=== PATIENT | female | born 1975 | race Caucasian/White ===

== ENCOUNTER 2023-08-16 12:27 | Observation (INO) | payer MEDICARE, MEDICAID, SELFPAY ==
[2023-08-16] VITALS (9 sets, daily range): BP systolic 146–178; BP diastolic 88–100; PULSE 96–122; RESP 17–24; TEMP 36.4–36.7; O2SAT 91–93; BMI 42.5; BMI 41.2
--- NOTE | 2023-08-16 12:44 | XR_ITS ---
The [address] [address] Patient Name: CE ALEJANDRA MRN: [id number] date: 1975 Sex: F Assigned Patient Location: ER Current Patient Location: ER Accession/Order Number: [id number] Exam Date: 08/16/2023 12:48 Report Date: 08/16/2023 13:11 At the request of: KT TORRES Procedure: XR chest 1V EXAM: XR chest 1V HISTORY: SOB, history of asthma COMPARISON: 08/24/2021 TECHNIQUE: Single AP view of the chest. FINDINGS: The lungs are clear. No pleural effusion or pneumothorax. Increased density superimposed over the cardiac silhouette is consistent with the patient's known large hiatal hernia. The cardiac silhouette is therefore obscured. No acute osseous or soft tissue abnormality. XR/XR chest 1V IMPRESSION: 1. No acute cardiopulmonary process. 2. Chronic large hiatal hernia. Electronically authenticated by: COSTA BAPTISTE Date: 08/16/2023 13:11
--- NOTE | 2023-08-16 12:44 | ECG_ITS ---
The [facility] Test Date: 2023-08-16 Pat Name: CE ALEJANDRA Department: Room: - Gender: Female [employer]: : 1975 Requested By: [id number] Order Number: [id number] Reading MD: PHILLIP JIANG Measurements Intervals [place] Rate: 112 P: 70 CT: 138 QRS: 78 QRSD: 74 T: 52 QT: 316 QTc: 382 Interpretive Statements 1120 Sinus tachycardia 8102 Low QRS voltage in chest leads 9140 abnormal rhythm ECG No previous ECG available for comparison Electronically Signed On 08-17-2023 7:03:36 EDT by PHILLIP JIANG
--- NOTE | 2023-08-16 12:45 | ED_ITS ---
HPI - SOB/Dyspnea General Chief Complaint: Shortness of Breath/Dyspnea Stated Complaint: SHORTNESS OF BREATH Time Seen by Provider: 08/16/23 12:41 Source: patient Mode of arrival: walk-in Limitations: no limitations History of Present Illness HPI Narrative: 48-year-old female presents for difficulty breathing, she has a history of asthma. She's been feeling this way for several days after babysitting a sick child. No known fever. She used her inhaler at home but it didn't help that much. No vomiting or diarrhea. Related Data Home Medications Medication Instructions Recorded Confirmed albuterol sulfate 90 mcg/actuation 2 puff inhalation Q4H PRN 08/16/23 08/16/23 aerosol inhaler shortness of breath or wheezing ciprofloxacin HCl 500 mg tablet 500 mg PO Q12H 08/16/23 08/16/23 hydroxyzine HCl 25 mg tablet 25 mg PO DAILY PRN anxity 08/16/23 08/16/23 prednisone 20 mg tablet 20 mg PO TID 08/16/23 08/16/23 Allergies Allergy/AdvReac Type Severity Reaction Status Date / Time No Known Drug Allergies Allergy Verified 08/16/23 12:38 Review of Systems ROS Narrative A ten point review of systems is negative except as noted above. PFSH PFSH Social History Smoking status: Former smoker Exam Narrative Exam Narrative: Nurses note and vital signs reviewed and patient is not hypoxic. General: The patient appears well and in no apparent distress. Patient is resting comfortably on cart. Skin: Warm, dry, no pallor noted. There is no rash noted. Head: Normocephalic, atraumatic Eye: Normal conjunctiva, no drainage Ears, Nose, Mouth, and Throat: oral mucosa is moist. Nares patent. Cardiovascular: Regular Rate and Rhythm, tachycardic Respiratory: bilateral rhonchi throughout Back: non-tender GI: Normal bowel sounds, no tenderness to palpation, no masses appreciated. No rebound, guarding, or rigidity noted. Musculoskeletal: The patient has no evidence of calf tenderness, no pitting edema, symmetrical pulses noted bilaterally Neurological: A&O, normal speech Psychiatric: Cooperative Constitutional Vital Signs, click to edit/add: Last Vital Signs Pulse 96 H 08/16/23 13:58 Resp 17 08/16/23 13:58 BP 178/100 H 08/16/23 12:34 Pulse Ox 92 L 08/16/23 14:00 O2 Del Method Room Air 08/16/23 14:00 Course Vital Signs Vital signs: Vital Signs Pulse Rate 122 H 08/16/23 12:34 Respiratory Rate 24 08/16/23 12:34 Blood Pressure 178/100 H 08/16/23 12:34 Pulse Oximetry 93 L 08/16/23 12:34 Oxygen Delivery Method Room Air 08/16/23 12:34 Pulse Rate 96 H 08/16/23 13:58 Respiratory Rate 17 08/16/23 13:58 Blood Pressure 178/100 H 08/16/23 12:34 Pulse Oximetry 92 L 08/16/23 14:00 Oxygen Delivery Method Room Air 08/16/23 14:00 MDM - SOB/Dyspnea MDM Narrative Medical decision making narrative: the patient presents with asthma exacerbation. She was given IV Solu-Medrol and multiple aerosol treatments and is being admitted. No infiltrate on her chest x- ray. Treatment diagnosis and disposition were discussed with the patient. Differential Diagnosis Differential diagnosis: Likely acute exacerbation of chronic obstructive airways disease, congestive heart failure, community acquired pneumonia and asthma with exacerbation Lab Data Attestation: I reviewed the patient's lab results. Labs: Lab Results 08/16/23 08/16/23 Range/Units 12:50 13:15 Sodium 137 (136-145) mmol/L Potassium 4.4 (3.5-5.1) mmol/L Chloride 102 (98-107) mmol/L Carbon Dioxide 23.1 (21.0-32.0) mmol/L Anion Gap 16.3 BUN 21.0 H (7.0-18.0) mg/dL Creatinine 1.17 H (0.55-1.02) mg/dL Est GFR ( Amer) 59 L (>=60) Est GFR (Non-Af Amer) 49 L (>=60) BUN/Creatinine Ratio 17.9 Glucose 132 H (74-106) mg/dL Calcium 9.6 (8.5-10.1) mg/dL SARS-CoV-2 (PCR) Negative (NEGATIVE) Imaging Data Chest x-ray: Radiologist's impression: Procedure: XR chest 1V EXAM: XR chest 1V HISTORY: SOB, history of asthma COMPARISON: 08/24/2021 TECHNIQUE: Single AP view of the chest. FINDINGS: The lungs are clear. No pleural effusion or pneumothorax. Increased density superimposed over the cardiac silhouette is consistent with the patient's known large hiatal hernia. The cardiac silhouette is therefore obscured. No acute osseous or soft tissue abnormality. IMPRESSION: 1. No acute cardiopulmonary process. 2. Chronic large hiatal hernia. Electronically authenticated by: COSTA BAPTISTE Date: 08/16/2023 13:11 Critical Care Time Critical Care Time Critical Care Time: Yes Total Critical Care Time: 35 Attestation: Due to the high probability of sudden and clinically significant deterioration in the patient's condition he/she required the highest level of my preparedness to intervene urgently I provided critical care time including documentation time, medication orders and management, reevaluation, vital sign assessment, ordering and reviewing of lab tests, ordering and reviewing of x-ray studies, and admission orders. Aggregate critical care time is 35 minutes including only time during which I was engaged in work directly related to his/her care and did not include time spent treating other patients simultaneously. Discharge Plan Discharge Chief Complaint: Shortness of Breath/Dyspnea Clinical Impression: Asthma with acute exacerbation Patient Disposition: Admitted as Observation Time of Disposition Decision: 13:54 Condition: Good
[2023-08-16] MEDS: ALBUTEROL SULFATE 2.5 MG/3 ML VIAL NEB IH ×2 (12:57→13:58)
[2023-08-16] MEDS: METHYLPREDNISOLONE SOD SUCC PF 125 MG/2 ML VIAL IVP ×2 (13:01→21:04)
[2023-08-16 13:41] LABS: Anion Gap 16.3; BUN Creatinine Ratio 17.9; Calcium 9.6 mg/dL (8.5-10.1); Carbon Dioxide 23.1 mmol/L (21.0-32.0); Chloride 102 mmol/L (98-107); Estimated GFR (African America 59 (>=60); Estimated GFR (Non-African Ame 49 (>=60); Glucose 132 mg/dL (74-106); Potassium 4.4 mmol/L (3.5-5.1); Sodium 137 mmol/L (136-145)
[2023-08-16 13:55] LABS: SARS-CoV-2 Ag NEGATIVE (NEGATIVE)
[2023-08-16 14:28] LABS: Basophils Absolute Auto 0.1 10^3/uL (0.0-0.1); Basophils Percent Auto 0.6 % (0.2-2.0); Eosinophils Percent Auto 0.1 % (0.9-7.0); Hematocrit 49.1 % (36.0-48.0); Hemoglobin 16.4 g/dL (12.0-16.0); Immature Granulocytes Pct Auto 1.2 % (0.0-0.5); Lymphocytes Absolute Auto 1.2 10^3/uL (1.2-3.8); Lymphocytes Percent Auto 14.8 % (20.5-60.0); Mean Corpuscular HGB Conc 33.4 g/dL (29.9-35.2); Mean Corpuscular Volume 86.9 fL (81.0-99.0); Mean Platelet Volume 11.9 fL (9.5-13.5); Monocytes Absolute Auto 0.1 10^3/uL (0.3-0.8); Monocytes Percent Auto 1.4 % (1.7-12.0); Neutrophils Absolute Auto 6.7 10^3/uL (1.4-6.5); Neutrophils Percent Auto 81.9 % (43.0-75.0); Platelet Count 151 10^3/uL (150-450); Red Blood Count 5.65 10^6/uL (4.20-5.40); Red Cell Distribution Width 12.9 % (11.0-15.0); White Blood Count 8.1 10^3/uL (4.0-11.0)
[2023-08-16] MEDS: CEFTRIAXONE 1,000 MG in 0.9 % SODIUM CHLORIDE 50 ML 100 MG IV (14:34)
[2023-08-16 15:14] LABS: SARS-CoV-2 NAA NOT DETECTED (NOT DETECTE)
[2023-08-16] MEDS: AZITHROMYCIN 500 MG in 0.9 % SODIUM CHLORIDE 250 ML 250 MG IV (15:19)
[2023-08-16 18:04] LABS: Lactate/Lactic Acid 1.4 mmol/L (0.4-2.0)
--- NOTE | 2023-08-16 18:35 | P.HP_ITS ---
H&P: HPI History of Present Illness Chief complaint: SHORTNESS OF BREATH, copd exacerbation Narrative: Patient scented to the emergency room with increasing shortness of breath. Found to have acute exacerbation of asthma/COPD. She is currently treated for both. No fevers, unable to improve wheezing in ER, admitted overnight for observation Review of Systems ROS Status of ROS 10 or more systems reviewed and unremarkable except as noted in history and below [facility] Medical History (Updated 08/16/23 @ 15:15 by Ruchi Yoo) Fibromyalgia ?M79.7 - Fibromyalgia (ICD-10) Hiatal hernia ?K44.9 - Diaphragmatic hernia without obstruction or gangrene (ICD-10) Kidney stones ?N20.0 - Calculus of kidney (ICD-10) Right knee meniscal tear ?S83.206A - Unspecified tear of unspecified meniscus, current injury, right knee, initial encounter (ICD-10) Surgical History (Updated 08/16/23 @ 15:15 by Ruchi Yoo) History of cholecystectomy ?Z90.49 - Acquired absence of other specified parts of digestive tract (ICD- 10) Tubal ligation status ?Z98.51 - Tubal ligation status (ICD-10) Social History Smoking status: Former smoker Meds Home Medications and Allergies Home Medications Medication Instructions Recorded Confirmed Type albuterol sulfate 90 mcg/actuation 2 puff inhalation Q4H PRN 08/16/23 08/16/23 History aerosol inhaler shortness of breath or wheezing diclofenac sodium 75 mg 75 mg PO BID PRN pain 08/16/23 08/16/23 History tablet,delayed release ferrous sulfate 325 mg (65 mg 325 mg PO DAILY 08/16/23 08/16/23 History iron) tablet (Feosol) hydroxyzine HCl 25 mg tablet 25 mg PO DAILY PRN anxity 08/16/23 08/16/23 History pantoprazole 40 mg tablet,delayed 40 mg PO QDAY 08/16/23 08/16/23 History release prednisone 20 mg tablet 60 mg PO QDAY 08/16/23 08/16/23 History amoxicillin 875 mg-potassium 1 tab PO Q12H #20 tabs 08/17/23 Rx clavulanate 125 mg tablet Allergies Allergy/AdvReac Type Severity Reaction Status Date / Time No Known Drug Allergies Allergy Verified 08/16/23 15:16 Exam Narrative Exam Narrative: Nurses note and vital signs reviewed and patient is not hypoxic. General: The patient appears well and in no apparent distress. Patient is resting comfortably on cart. Skin: Warm, dry, no pallor noted. There is no rash noted. Head: Normocephalic, atraumatic Eye: Normal conjunctiva, no drainage Ears, Nose, Mouth, and Throat: oral mucosa is moist. Nares patent. Cardiovascular: Regular Rate and Rhythm, tachycardic Respiratory: bilateral rhonchi throughout-with wheezes throughout Back: non-tender GI: Normal bowel sounds, no tenderness to palpation, no masses appreciated. No rebound, guarding, or rigidity noted. Musculoskeletal: The patient has no evidence of calf tenderness, no pitting edema, symmetrical pulses noted bilaterally Neurological: A&O, normal speech Psychiatric: Cooperative Constitutional Vital Signs, click to edit/add: Last Vital Signs Temp 97.5 F L 08/16/23 15:22 Pulse 107 H 08/16/23 15:22 Resp 20 08/16/23 15:22 BP 157/97 H 08/16/23 15:22 Pulse Ox 91 L 08/16/23 15:22 O2 Del Method Room Air 08/16/23 15:30 Results Labs Labs: Short CBC 08/16/23 Range/Units 14:15 WBC 8.1 (4.0-11.0) 10^3/uL Hgb 16.4 H (12.0-16.0) g/dL Hct 49.1 H (36.0-48.0) % Plt Count 151 (150-450) 10^3/uL BMP 08/16/23 12:50 Sodium 137 Potassium 4.4 Chloride 102 Carbon Dioxide 23.1 BUN 21.0 H Creatinine 1.17 H Glucose 132 H Calcium 9.6 Assessment and Plan Assessment and Plan (1) Asthma with acute exacerbation: Plan Acute exacerbation of COPD and asthma-steroids, aerosols, antibiotics-if improved tomorrow possible discharge home tomorrow
[2023-08-16] MEDS: IPRATROPIUM BROMIDE 0.5 MG/2.5 ML VIAL.NEB IH ×2 (19:36→23:33)
[2023-08-16] MEDS: LEVALBUTEROL HCL 0.63 MG/3 ML VIAL.NEB IH ×2 (19:36→23:33)
[2023-08-16] MEDS: BENZONATATE 100 MG CAPSULE 200 MG PO (21:04)
[2023-08-16] MEDS: L. ACIDOPHILUS/L.BULGARICUS 1 PACKET GRAN.PACK PO (21:04)
[2023-08-16] MEDS: AMPICILLIN SODIUM/SULBACTAM NA 1.5 GM in 0.9 % SODIUM CHLORIDE 50 ML IV (21:07)
[2023-08-16] MEDS: LACTATED RINGER'S SOLUTION 1,000 ML 100 ML IV (21:07)
[2023-08-17] MEDS: AMPICILLIN SODIUM/SULBACTAM NA 1.5 GM in 0.9 % SODIUM CHLORIDE 50 ML IV ×2 (02:20→08:50)
[2023-08-17] MEDS: METHYLPREDNISOLONE SOD SUCC PF 125 MG/2 ML VIAL IVP ×2 (02:20→07:35)
[2023-08-17 03:07] VITALS: PULSE 70; RESP 20; O2SAT 92
[2023-08-17] MEDS: LEVALBUTEROL HCL 0.63 MG/3 ML VIAL.NEB IH ×3 (03:07→11:40)
[2023-08-17] MEDS: IPRATROPIUM BROMIDE 0.5 MG/2.5 ML VIAL.NEB IH ×2 (03:07→08:18)
[2023-08-17] MEDS: ACETAMINOPHEN 325 MG TABLET 650 MG PO ×2 (04:01→08:49)
[2023-08-17 04:02] VITALS: BP 128/78; PULSE 92; RESP 18; TEMP 36.5; O2SAT 90
[2023-08-17 04:24] LABS: Basophils Percent Auto 0.2 % (0.2-2.0); Hemoglobin 14.7 g/dL (12.0-16.0); Lymphocytes Absolute Auto 1.3 10^3/uL (1.2-3.8); Lymphocytes Percent Auto 12.7 % (20.5-60.0); Mean Corpuscular HGB Conc 34.2 g/dL (29.9-35.2); Mean Corpuscular Hemoglobin 29.5 pg (26.7-34.0); Mean Corpuscular Volume 86.3 fL (81.0-99.0); Mean Platelet Volume 12.5 fL (9.5-13.5); Monocytes Absolute Auto 0.2 10^3/uL (0.3-0.8); Neutrophils Absolute Auto 8.6 10^3/uL (1.4-6.5); Neutrophils Percent Auto 84.1 % (43.0-75.0); Platelet Count 101 10^3/uL (150-450); Red Blood Count 4.98 10^6/uL (4.20-5.40); Red Cell Distribution Width 12.9 % (11.0-15.0); White Blood Count 10.3 10^3/uL (4.0-11.0)
[2023-08-17 04:39] LABS: BUN Creatinine Ratio 23.1; Calcium 9.2 mg/dL (8.5-10.1); Carbon Dioxide 25.2 mmol/L (21.0-32.0); Chloride 102 mmol/L (98-107); Estimated GFR (African America >60 (>=60); Estimated GFR (Non-African Ame 54 (>=60); Glucose 152 mg/dL (74-106); Potassium 4.2 mmol/L (3.5-5.1); Sodium 136 mmol/L (136-145)
[2023-08-17] MEDS: BENZONATATE 100 MG CAPSULE 200 MG PO (05:51)
[2023-08-17] MEDS: OMEPRAZOLE 40 MG CAPSULE.DR PO (05:51)
[2023-08-17] MEDS: LACTATED RINGER'S SOLUTION 1,000 ML 100 ML IV (05:51)
--- NOTE | 2023-08-17 08:07 | PM.DS1 ---
DS: Providers Provider Date of admission: 08/16/23 14:55 Primary care physician: Non-Staff Physician, DS: Diagnosis Discharge Diagnosis (1) Asthma with acute exacerbation: Plan Patient mated with failed outpatient treatment of acute asthma-she is already been started on steroids prior to admission, in ER unable to improve wheezing so was placed in observation. Given frequent aerosols. Steroids, antibiotics. She is much improved this morning. No supplemental oxygen required overnight. At this point she can be discharged home in improving condition. Medications see list. Follow-up with me in the office as needed. DS: Summary Time Spent with Patient Time attestation: Total time spent providing and/or coordinating discharge services: Exam Narrative Exam Narrative: Nurses note and vital signs reviewed and patient is not hypoxic. General: The patient appears well and in no apparent distress. Patient is resting comfortably on cart. Skin: Warm, dry, no pallor noted. There is no rash noted. Head: Normocephalic, atraumatic Eye: Normal conjunctiva, no drainage Ears, Nose, Mouth, and Throat: oral mucosa is moist. Nares patent. Cardiovascular: Regular Rate and Rhythm, tachycardic Respiratory: bilateral rhonchi throughout-with wheezes throughout-being resolved Back: non-tender GI: Normal bowel sounds, no tenderness to palpation, no masses appreciated. No rebound, guarding, or rigidity noted. Musculoskeletal: The patient has no evidence of calf tenderness, no pitting edema, symmetrical pulses noted bilaterally Neurological: A&O, normal speech Psychiatric: Cooperative Constitutional Vital Signs, click to edit/add: Last Vital Signs Temp 97.7 F 08/17/23 04:02 Pulse 92 H 08/17/23 04:02 Resp 18 08/17/23 04:02 BP 128/78 08/17/23 04:02 Pulse Ox 90 L 08/17/23 04:02 O2 Del Method Room Air 08/17/23 04:02 DS: Data Data Completed and Pending Labs on day of discharge: Labs from last 24 hours 08/17/23 08/16/23 08/16/23 04:11 14:15 13:15 WBC 10.3 8.1 RBC 4.98 5.65 H Hgb 14.7 16.4 H Hct 43.0 49.1 H MCV 86.3 86.9 MCH 29.5 29.0 MCHC 34.2 33.4 RDW 12.9 12.9 Plt Count 101 L 151 MPV 12.5 11.9 Neut % (Auto) 84.1 H 81.9 H Lymph % (Auto) 12.7 L 14.8 L Hardin % (Auto) 2.0 1.4 L Eos % (Auto) 0.0 L 0.1 L Baso % (Auto) 0.2 0.6 Neut # (Auto) 8.6 H 6.7 H Lymph # (Auto) 1.3 1.2 Hardin # (Auto) 0.2 L 0.1 L Eos # (Auto) 0.0 0.0 Baso # (Auto) 0.0 0.1 Abs Immat Gran (auto) 0.10 H 0.10 H Imm/Tot Granulo (auto) 1.0 H 1.2 H Sodium 136 Potassium 4.2 Chloride 102 Carbon Dioxide 25.2 Anion Gap 13.0 BUN 25.0 H Creatinine 1.08 H Est GFR ( Amer) >60 Est GFR (Non-Af Amer) 54 L BUN/Creatinine Ratio 23.1 Glucose 152 H Lactate Calcium 9.2 SARS-CoV-2 (PCR) Negative SARS-CoV-2 RNA (SUKHWINDER) Not detected 08/16/23 12:50 WBC RBC Hgb Hct MCV MCH MCHC RDW Plt Count MPV Neut % (Auto) Lymph % (Auto) Hardin % (Auto) Eos % (Auto) Baso % (Auto) Neut # (Auto) Lymph # (Auto) Hardin # (Auto) Eos # (Auto) Baso # (Auto) Abs Immat Gran (auto) Imm/Tot Granulo (auto) Sodium 137 Potassium 4.4 Chloride 102 Carbon Dioxide 23.1 Anion Gap 16.3 BUN 21.0 H Creatinine 1.17 H Est GFR ( Amer) 59 L Est GFR (Non-Af Amer) 49 L BUN/Creatinine Ratio 17.9 Glucose 132 H Lactate 1.4 Calcium 9.6 SARS-CoV-2 (PCR) SARS-CoV-2 RNA (SUKHWINDER) Discharge Plan Discharge Disposition: Home, Self-Care Condition: Good Discharge Medications: New amoxicillin-pot clavulanate 875-125 mg tablet 1 tab PO Q12H Qty: 20 0RF Continued albuterol sulfate 90 mcg/actuation HFA aerosol inhaler 2 puff INHALATION Q4H PRN (Reason: shortness of breath or wheezing) hydroxyzine HCl 25 mg tablet 25 mg PO DAILY PRN (Reason: anxity) prednisone 20 mg tablet 60 mg PO QDAY Rx Instructions: STARTED ON 08/14/23 X5 DAYS diclofenac sodium 75 mg tablet,delayed release (DR/EC) 75 mg PO BID PRN (Reason: pain) Rx Instructions: LASTED FILLED 09/19 pantoprazole 40 mg tablet,delayed release (DR/EC) 40 mg PO QDAY Patient Comments: LAST FILLED 01/19/23 X90 DAYS ferrous sulfate [Feosol] 325 mg (65 mg iron) tablet 325 mg PO DAILY Discontinued ciprofloxacin HCl 500 mg tablet 500 mg PO Q12H Patient Comments: STARTED 08/14/23 FOR 10 DAYS Patient Instructions: Amoxicillin (By mouth), Asthma (ED) Forms: Portal Instructions Follow Up Appointments: Follow up appt. with Dr. Jones on @ 10:15am Office #: [phone] Discharge Date/Time: 08/17/23 12:12
[2023-08-17 08:20] VITALS: O2SAT 91
--- NOTE | 2023-08-17 08:37 | CM.NOTE ---
Medicare Outpatient Observation discussed with pt, pt verbalizes understanding and signs paper. Original given to pt and copy placed on chart.
[2023-08-17] MEDS: FERROUS SULFATE 325 MG TABLET PO (08:49)
[2023-08-17] MEDS: L. ACIDOPHILUS/L.BULGARICUS 1 PACKET GRAN.PACK PO (08:49)
[2023-08-17 11:42] VITALS: O2SAT 91
--- NOTE | 2023-08-20 15:04 | CM.DCFOLLOWU ---
Person spoke with: patient How are you feeling? better How is your pain? only when she has a coughing attack Did you understand your discharge instructions? yes Do you have any questions about your discharge instructions? no Were you given any prescriptions at discharge? yes Were you able to get your prescriptions filled? yes Do you understand how to take your medications as ordered? yes Do you have any questions about your follow up appointment and do you plan to keep your follow up appointment? no questions, follow up 08/27/[address] Jones Is there anything else that you would like to discuss? no Questions/Comments/Concerns/Other:
== END 2023-08-17 12:12 | disposition home or self-care (01) ==
LOC: ER 13:54 → MS 15:02
PROVIDERS: Admitting Provider Family Medicine; Emergency Provider Emergency Medicine; Visit Provider Family Medicine
DX: J45.901 Unspecified asthma with (acute) exacerbation (principal); M79.7 Fibromyalgia; K44.9 Diaphragmatic hernia without obstruction or gangrene; Z87.442 Personal history of urinary calculi; Z98.51 Tubal ligation status; Z90.49 Acquired absence of other specified parts of digestive tract; Z20.822 Contact with and (suspected) exposure to COVID-19; Z79.899 Other long term (current) drug therapy; Z87.891 Personal history of nicotine dependence
CPT/HCPCS: 36415; 71045; 80048; 83605; 85025; 87040; 87070; 87150; 87205; 87635; 87811; 93005; 94640; 94667; 94668; 94761; 96365; 96366; 96367; 96375; 96376; 99285; G0378; J0456; J2930

== ENCOUNTER 2023-08-27 11:10 | Outpatient (OUT) | payer MEDICARE, MEDICAID, SELFPAY ==
[2023-08-27 11:37] LABS: Basophils Absolute Auto 0.1 10^3/uL (0.0-0.1); Basophils Percent Auto 0.7 % (0.2-2.0); Eosinophils Absolute Auto 0.2 10^3/uL (0.0-0.7); Eosinophils Percent Auto 3.1 % (0.9-7.0); Hematocrit 41.8 % (36.0-48.0); Immature Granulocytes Abs Auto 0.08 10^3/uL (0.00-0.03); Immature Granulocytes Pct Auto 1.1 % (0.0-0.5); Lymphocytes Percent Auto 26.9 % (20.5-60.0); Mean Corpuscular HGB Conc 33.5 g/dL (29.9-35.2); Mean Corpuscular Hemoglobin 30.1 pg (26.7-34.0); Mean Corpuscular Volume 89.9 fL (81.0-99.0); Mean Platelet Volume 10.7 fL (9.5-13.5); Monocytes Absolute Auto 0.5 10^3/uL (0.3-0.8); Monocytes Percent Auto 6.4 % (1.7-12.0); Neutrophils Absolute Auto 4.5 10^3/uL (1.4-6.5); Neutrophils Percent Auto 61.8 % (43.0-75.0); Platelet Count 136 10^3/uL (150-450); Red Blood Count 4.65 10^6/uL (4.20-5.40); Red Cell Distribution Width 13.2 % (11.0-15.0); White Blood Count 7.3 10^3/uL (4.0-11.0)
[2023-08-27 12:55] LABS: Alanine Aminotransferase 233 U/L (14-59); Albumin Level 3.4 g/dL (3.4-5.0); Alkaline Phosphatase 67 U/L (46-116); Anion Gap 11.5; Aspartate Amino Transferase 41 U/L (15-37); BUN Creatinine Ratio 16.7; Bilirubin Total 0.8 mg/dL (0.2-1.0); Calcium 8.6 mg/dL (8.5-10.1); Carbon Dioxide 26.7 mmol/L (21.0-32.0); Chloride 104 mmol/L (98-107); Estimated GFR (African America >60 (>=60); Estimated GFR (Non-African Ame 54 (>=60); Globulin 3.5 g/dL; Glucose 93 mg/dL (74-106); Potassium 4.2 mmol/L (3.5-5.1); Sodium 138 mmol/L (136-145); Total Protein 6.9 g/dL (6.4-8.2)
== END 2023-08-27 11:11 | disposition home or self-care (01) ==
LOC: LAB 11:12
PROVIDERS: PCP Family Medicine; Visit Provider Family Medicine
DX: I11.0 Hypertensive heart disease with heart failure (principal); I50.30 Unspecified diastolic (congestive) heart failure; J21.9 Acute bronchiolitis, unspecified
CPT/HCPCS: 36415; 80053; 83880; 85025; 87070; 87205

== ENCOUNTER 2023-09-03 07:53 | Outpatient (OUT) | payer MEDICARE, MEDICAID, SELFPAY ==
--- NOTE | 2023-09-03 07:56 | US_ITS ---
The [address] [address] Patient Name: CE ALEJANDRA MRN: [id number] date: 1975 Sex: F Assigned Patient Location: US Current Patient Location: US Accession/Order Number: [id number] Exam Date: 09/03/2023 07:58 Report Date: 09/03/2023 09:08 At the request of: CABRERA VIGIL Procedure: US right upper quadrant EXAM: US right upper quadrant HISTORY: Right Upper Quadrant Pain R10.11 COMPARISON: None. TECHNIQUE: Grayscale, color and Doppler FINDINGS: The liver appears normal in size, contour and echotexture with no focal mass. The liver measures 18.5 cm in length. Hepatopedal flow in the main portal vein with a velocity of 19 cm/s. The gallbladder is absent. Negative sonographic Trevino sign. The common bile duct measures 7.9 mm. The visualized pancreatic body is normal The right kidney measures 10.2 x 6.5 x 5.6 cm. Multiple echogenic foci measuring up to 9 mm, nonobstructing nephrolithiasis. Cortical thinning, the cortex measures 8.6 mm thick. No solid cortical mass observed US/US right upper quadrant IMPRESSION: Nonobstructing nephrolithiasis with moderate renal cortical thinning Electronically authenticated by: LOREE VALE Date: 09/03/2023 09:08
== END 2023-09-03 07:54 | disposition home or self-care (01) ==
LOC: US 07:53
PROVIDERS: PCP Family Medicine; Visit Provider Family Medicine
DX: R10.11 Right upper quadrant pain (principal); N20.0 Calculus of kidney
CPT/HCPCS: 76705

== ENCOUNTER 2024-06-07 08:28 | Outpatient (OUT) | payer MEDICARE, MEDICAID, SELFPAY ==
--- OUTSIDE RECORDS SUMMARY | 2024-06-07 08:31 | XMS_ITS | CCD ---
Author Organization [facility] Care Team Providers Care Cell Changer Name Role Phone VALLE, M L Unavailable Unavailable VALLE, M L Unavailable Unavailable HOY, CABRERA M Unavailable Unavailable VALLE, M L Unavailable Unavailable VALLE, M L Unavailable Unavailable HOY, CABRERA M Unavailable Unavailable VALLE, M L Unavailable Unavailable HOY, CABRERA M Unavailable Unavailable HONoe, DR REES Primary Care Unavailable HOY, DR REES Admitting Unavailable HOY, DR REES Attending Unavailable HOY, DR REES Consulting Unavailable ZIEBER, DR MARCIAL Devine Consulting Unavailable REINECK, DR DONA Ashraf Admitting Unavailabl e HOY, DR REES Primary Care Unavailable KRYSTAL, DR DONA Ashraf Attending Unavailabl e LAURA, RUSSELL ESCOBAR Consulting Unavailable CONCHIS, NATY Consulting Unavailable NATHANY, DR REES Admitting Unavailable HOY, DR REES Attending Unavailable HOY, DR REES Consulting Unavailable HOY, DR REES Primary Care Unavailable HOY, DR REES Admitting Unavailable HOY, DR REES Attending Unavailable HOY, DR REES Consulting Unavailable MUSA, DR REES Primary Care Unavailable EAST BUTLER, DR LOREE Zimmerman Consulting Unavailable HOY, DR REES Primary Care Unavailable HOY, DR REES Admitting Unavailable HOY, DR REES Attending Unavailable HOY, DR REES Consulting Unavailable Problems Active Problems Problem Classification Problem Date Documented Date Episodic/Chronic Anxiety disorders (2 sources) Obsessive-compulsive disorder, unspecified; Translations: [Post-traumatic stress disorder, unspecified] Onset: 08-26-2021 Chronic Asthma (1 source) Asthma Onset: 05-16-2017 Disorders of lipid metabolism (4 sources) Hyperlipidemia, unspecified; Translations: [HYPERLIPIDEMIA UNSPECIFIED] Onset: 09-02-2021 Chronic Esophageal disorders (1 source) Gastro-esophageal reflux disease without esophagitis; Translations: [GERD WITHOUT ESOPHAGITIS] Onset: 08-26-2021 Chronic Esophageal disorders (1 source) Esophageal disorders Onset: 05-16-2017 Mood disorders (1 source) Major depressive disorder, single episode, unspecified; Translations: [JODEE DEPRESS D/O SINGLE EPIS UNS] Onset: 08-26-2021 Chronic Other nutritional; endocrine; and metabolic disorders (1 source) Morbid (severe) obesity due to excess calories; Translations: [MORBID SEVERE OBES D/T EXCESS SAMIA] Onset: 08-26-2021 Chronic Other nutritional; endocrine; and metabolic disorders (1 source) Body mass index (BMI) 45.0-49.9, adult; Translations: [BODY MASS INDEX BMI 45.0-49.9 ADULT] Onset: 08-26-2021 Chronic Residual codes; unclassified (1 source) Sleep apnea, unspecified; Translations: [SLEEP APNEA UNSPECIFIED] Onset: 08-26-2021 Chronic Unclassified (1 source) Periapical abscess without sinus / K04.7(ICD-9) Onset: 05-16-2017 Unclassified (2 sources) Dental caries, unspecified / K02.9(ICD-9) Onset: 05-16-2017 Unclassified (1 source) Bipolar disorder, unspecified / F31.9(ICD-9) Onset: 05-16-2017 Unclassified (1 source) Anxiety disorder, unspecified / F41.9(ICD-9) Onset: 05-16-2017 Unclassified (1 source) Post-traumatic stress disorder, unspecified / F43.10(ICD-9) Onset: 05-16-2017 Unclassified (1 source) Nicotine dependence, cigarettes, uncomplicated / F17.210(ICD-9) Onset: 05-16-2017 Unclassified (1 source) Personal history of urinary calculi / Z87.442(ICD-9) Onset: 05-16-2017 Unclassified (1 source) Other specified disorders of teeth and supporting structures / K08.89(ICD-9) Onset: 05-16-2017 Unclassified (1 source) Personal history of peptic ulcer disease / Z87.11(ICD-9) Onset: 05-16-2017 Unclassified (1 source) Acquired absence of other specified parts of digestive tract / Z90.49(ICD-9) Onset: 05-16-2017 Unclassified (1 source) Obesity, unspecified / E66.9(ICD-9) Onset: 05-16-2017 Unclassified (1 source) Body mass index (BMI) 45.0-49.9, adult / Z68.42(ICD-9) Onset: 05-16-2017 Unclassified (2 sources) Encounter for other preprocedural examination / Z01.818(ICD-9) Onset: 05-10-2017 Unclassified (1 source) Dental caries on pit and fissure surface limited to enamel / K02.51(ICD-9) Onset: 05-10-2017 Unclassified (4 sources) CONTACT W/AND (SUSP) EXPOS COVID-19; Translations: [CONTACT W/AND (SUSP) EXPOS COVID-19] Onset: 08-26-2021 Past or Other Problems Problem Classification Problem Date Documented Date Episodic/Chronic Calculus of urinary tract (1 source) Personal history of urinary calculi; Translations: [PERSONAL HISTORY OF URINARY CALCULI] Onset: 08-26-2021 Episodic Deficiency and other anemia (1 source) Anemia, unspecified; Translations: [ANEMIA UNSPECIFIED] Onset: 09-08-2021 Episodic Diabetes mellitus without complication (1 source) Other abnormal glucose; Translations: [OTHER ABNORMAL GLUCOSE] Onset: 09-08-2021 Episodic Disorders of teeth and jaw (1 source) Dental caries, unspecified; Translations: [Dental caries, unspecified] Onset: 05-16-2017 Episodic Genitourinary symptoms and ill-defined conditions (1 source) Personal history of urinary (tract) infections; Translations: [PERS HX URINARY TRACT INFECTIONS] Onset: 08-26-2021 Episodic Other aftercare (1 source) Other lathe puller (current) drug therapy; Translations: [OTH RESIDENTIAL CURRENT DRUG THERAPY] Onset: 08-26-2021 Episodic Other lower respiratory disease (4 sources) Shortness of breath; Translations: [SHORTNESS OF BREATH] Onset: 08-24-2021 Episodic Other screening for suspected conditions (not mental disorders or infectious disease) (5 sources) Encounter for screening mammogram for malignant neoplasm of breast; Translations: [Encounter for screening for malignant neoplasm of rectum] Onset: 09-08-2021 Episodic Residual codes; unclassified (1 source) Family history of other malignant neoplasms of lymphoid, hematopoietic and related tissues; Translations: [FAM HX OTH MAL FABIOLA LYMPH HEMATPOETC] Onset: 09-24-2021 Episodic Residual codes; unclassified (1 source) Acquired absence of other specified parts of digestive tract; Translations: [ACQ ABSENCE OTH PART DIGESTV TRACT] Onset: 08-26-2021 Episodic Screening and history of mental health and substance abuse codes (1 source) Personal history of nicotine dependence; Translations: [PERSONAL HISTORY OF NICOTINE DEPEND] Onset: 08-26-2021 Episodic Unclassified (1 source) Encounter for other preprocedural examination; Translations: [Encounter for other preprocedural examination] Onset: 05-10-2017 Unclassified (1 source) CONTACT W/AND (SUSP) EXPOS COVID-19; Translations: [CONTACT W/AND (SUSP) EXPOS COVID-19] Onset: 05-12-2022 Results Test Name Value Interpretation Reference Range Facility Covid-19 PCR (CVDTB)on 04-28 SARS-CoV-2 (COVID-19) RNA SUKHWINDER+probe Ql (Unsp spec) Not detected Normal NOT DETECTED [facility] Comment on above: Result Comment: This test is not yet approved or cleared by the [place] FDA. When there are no FDA-approved or cleared tests available, and other criteria are met, FDA can make tests available under an emergency access mechanism called an Emergency Use Authorization (EUA). The EUA for this test is supported by the [place] of Health and Human Service's (HHS's) declaration that circumstances exist to justify the emergency use of in vitro diagnostics for the detection and/or diagnosis of the virus that causes COVID-19. This EUA will remain in effect (meaning this test can be used) for the duration of the COVID-19 declaration justifying emergency of IVDs, unless it is terminated or revoked by FDA (after which the test may no longer be used). When diagnostic testing is negative, the possibility of a false negative should be considered in the context of a patient's recent exposures and the presence of clinical signs and symptoms consistent with SARS-CoV-2. Performed By: #### C MP, BNP, TSH, HSTROPN #### [facility] [address] [place] [address] Dr. Emily Hercules Facesheeton 03-02-2022 Facesheet [id number]:127 Normal [facility] Physician Referralon 022 Physician Referral [id number]. [id number]:127 Normal [facility] Covid-19 PCR (CVDTB)on 08-30 SARS-CoV-2 (COVID-19) RNA SUKHWINDER+probe Ql (Unsp spec) Not detected Normal NOT DETECTED [facility] Comment on above: Result Comment: This test is not yet approved or cleared by the [place] FDA. When there are no FDA-approved or cleared tests available, and other criteria are met, FDA can make tests available under an emergency access mechanism called an Emergency Use Authorization (EUA). The EUA for this test is supported by the [employer] of Health and Human Service's (HHS's) declaration that circumstances exist to justify the emergency use of in vitro diagnostics for the detection and/or diagnosis of the virus that causes COVID-19. This EUA will remain in effect (meaning this test can be used) for the duration of the COVID-19 declaration justifying emergency of IVDs, unless it is terminated or revoked by FDA (after which the test may no longer be used). When diagnostic testing is negative, the possibility of a false negative should be considered in the context of a patient's recent exposures and the presence of clinical signs and symptoms consistent with SARS-CoV-2. Performed By: #### [facility] #### [facility] [address] [address] [address] Emily Hercules MG MAMM SCREEN 3D SHELLY CADon 09-15-2021 MG MAMM SCREEN 3D SHELLY CAD Patient: KIYA BHAT Exam Date: 09/15/2021 : 1975 Gender:F Ordering : DR CABRERA JONES . Admission #: [id number] Family : Order #: [id number] CLICK HERE TO VIEW EXAM RADIOLOGY REPORT PROCEDURE: MAMMOGRAM SCREENING 3D BILATERAL CAD COMPARISON: None. INDICATIONS: Screening mammography Calculator Name NCI Breast Cancer Risk Assessment Tool 5 Year Breast Cancer Risk 0.70% Lifetime Breast Cancer Risk 6.70% Personal Breast Cancer No Personal Ovarian Cancer No Treatments None Family Cancers Grandmother-maternal with leukemia cancer at age 38. LOCATION: [facility] BREAST COMPOSITION: Scattered areas fibroglandular density. FINDINGS: DIAGNOSTIC CATEGORY 2--BENIGN FINDING: Bilateral reniform shaped nodules likely intramammary lymph nodes. Scattered benign-appearing calcifications are present. Scattered benign-appearing lymph nodes are present. RIGHT BREAST: No significant suspicious finding. LEFT BREAST: No significant suspicious finding. RECOMMENDATIONS: ROUTINE MAMMOGRAM AND CLINICAL EVALUATION IN 12 MONTHS. PLEASE NOTE: A NORMAL MAMMOGRAM DOES NOT EXCLUDE THE POSSIBILITY OF BREAST CANCER. A CLINICALLY SUSPICIOUS PALPABLE LUMP SHOULD BE BIOPSIED. Dictated by: Loree Serna MD on 09/15/2021 at 11:35 Approved by: Loree Serna MD on 09/15/2021 at 11:59 Normal [facility] FSHon 09-03-2021 FSH 8.8 mIU/mL Normal [facility] Comment on above: Result Comment: Adul t Female: Follicular phase 3.5 - 12.5 Ovulation phase 4.7 - 21.5 Luteal phase 1.7 - 7.7 Postmenopausal 25.8 - 134.8 Performed By: #### L BCFSH #### [facility] [address] [place] [address] Dr. Emily Hercules INSULINon 09-03-2021 Insulin 19.4 uIU/mL Normal 2.6-24.9 [facility] Comment on above: Performed By: #### C MP, BNP, TSH, HSTROPN #### [facility] [address] [place] [address] Dr. Emily Hercules CBC AUTO DIFFon 09-02-2021 BASO # 0.1 103/ul Normal 0.0-0.1 [facility] Comment on above: Performed By: #### C BC #### [facility] [address] [place] [address] Dr. Emily Hercules Basophils/100 WBC (Bld) 0.7 % Normal 0.2-2.0 [facility] Comment on above: Performed By: #### C BC #### [facility] [address] [place] [address] Dr. Emily Hercules EO # 0.3 103/ul Normal 0.0-0.7 [facility] Comment on above: Performed By: #### C BC #### [facility] [address] [place] [address] Dr. Emily Hercules Eosinophils/100 WBC (Bld) 3.8 % Normal 0.9-7.0 [facility] Comment on above: Performed By: #### C BC #### [facility] [address] [place] [address] Dr. Emily Hercules Erythrocyte distribution width (RBC) [Ratio] 13.6 % Normal 11.0-15.0 [facility] Comment on above: Performed By: #### C BC #### [facility] [address] [place] [address] Dr. Emily Hercules Hematocrit (Bld) [Volume fraction] 42.6 % Normal 36.0-48.0 [facility] Comment on above: Performed By: #### C BC #### [facility] [address] [place] [address] Dr. Emily Hercules Hemoglobin (Bld) [Mass/Vol] 14.5 g/dL Normal 12.0-16.0 [facility] Comment on above: Performed By: #### C BC #### [facility] [address] [place] [address] Dr. Emily Hercules IG # 0.08 10e3/ul Critically high 0.00-0.03 [facility] Comment on above: Performed By: #### C BC #### [facility] [address] [place] [address] Dr. Emily Hercules IG % 1.0 % Critically high 0.0-0.5 [facility] Comment on above: Performed By: #### C BC #### [facility] [address] [place] [address] Dr. Emily Hercules LYMPH # 2.2 103/ul Normal 1.2-3.8 [facility] Comment on above: Performed By: #### C BC #### [facility] [address] [place] [address] Dr. Emily Hercules Lymphocytes/100 WBC (Bld) 27.4 % Normal 20.5-60.0 [facility] Comment on above: Performed By: #### C BC #### [facility] [address] [place] [address] Dr. Emily Hercules MANUAL DIFF REQ NO Normal [facility] Comment on above: Performed By: #### C BC #### [facility] [address] [place] [address] Dr. Emily Hercules MCH (RBC) [Entitic mass] 30.2 pg Normal 26.7-34.0 [facility] Comment on above: Performed By: #### C BC #### [facility] [address] [place] [address] Dr. Emily Hercules MCHC (RBC) [Mass/Vol] 34.0 g/dL Normal 29.9-35.2 [facility] Comment on above: Performed By: #### C BC #### [facility] [address] [place] [address] Dr. Emily Hercules MCV (RBC) [Entitic vol] 88.8 fL Normal 81.0-99.0 [facility] Comment on above: Performed By: #### C BC #### [facility] [address] [place] [address] Dr. Emily Hercules MONO # 0.5 103/ul Normal 0.3-0.8 [facility] Comment on above: Performed By: #### C BC #### [facility] [address] [place] [address] Dr. Emily Hercules Monocytes/100 WBC (Bld) 6.2 % Normal 1.7-12.0 [facility] Comment on above: Performed By: #### C BC #### [facility] [address] [place] [address] Dr. Emily Hercules NEUT # 4.9 103/ul Normal 1.4-6.5 [facility] Comment on above: Performed By: #### C BC #### [facility] [address] [place] [address] Dr. Emily Hercules Neutrophils/100 WBC (Bld) 60.9 % Normal 43.0-75.0 [facility] Comment on above: Performed By: #### C BC #### [facility] [address] [address] [address] Eimly Hercules Platelet mean volume (Bld) [Entitic vol] 11.6 fL Normal 9.5-13.5 [facility] Comment on above: Performed By: #### C BC #### [facility] [address] [place] [address] Dr. Emily Hercules PLT 180 103/ul Normal 150-450 [facility] Comment on above: Performed By: #### C BC #### [facility] [address] [address] [address] Emily Hercules RBC 4.80 106/ul Normal 4.20-5.40 [facility] Comment on above: Performed By: #### C BC #### [facility] [address] [place] [address] Dr. Emily Hercules WBC 8.1 103/ul Normal 4.0-11.0 [facility] Comment on above: Performed By: #### C BC #### [facility] [address] [place] [address] Dr. Emily Hercules FREE THYROXINE INDEX T7on FTI 3.47 Normal [facility] Comment on above: Performed By: #### T 7, CMP, LIPID, TSH #### [facility] [address] [place] [address] Dr. Emily Hercules T3U 35.0 % Normal 23.5-40.5 [facility] Comment on above: Performed By: #### T 7, CMP, LIPID, TSH #### [facility] [address] [place] [address] Dr. Emily Hercules T4 [Mass/Vol] 9.90 ug/dL Normal 5.53-11.00 [facility] Comment on above: Performed By: #### T 7, CMP, LIPID, TSH #### [facility] [address] [place] [address] Dr. Emily Hercules GLYCOHEMOGLOBIN A1Con 2020 ADA RECOMMENDATION ADA THERAPEUTIC TARGET 6.0 - 7.0 ACTION SUGGESTED > 7.0 Normal [facility] Comment on above: Performed By: #### C MP, BNP, TSH, HSTROPN #### [facility] [address] [address] [address] Emily Hercules Glucose [Mass/Vol] 114 mg/dL Normal [facility] Comment on above: Performed By: #### C MP, BNP, TSH, HSTROPN #### [facility] [address] [address] [address] Emily Hercules HbA1c (Bld) [Mass fraction] 5.6 % Normal <=6.0 [facility] Comment on above: Performed By: #### C MP, BNP, TSH, HSTROPN #### [facility] [address] [address] [address] Emily Hercules IRONon 09-02-2021 Iron [Mass/Vol] 111.0 ug/dL Normal 37.0-170.0 [facility] Comment on above: Performed By: #### C MP, BNP, TSH, HSTROPN #### [facility] [address] [address] [address] Emily Hercules LIPID PROFILEon 09-02-2021 CHOL-HDL RATIO NORM SEE BELOW Normal [facility] Comment on above: Result Comment: 3.3 - 4.4 LOW RISK 4.4 - 7.1 AVERAGE RISK 7.1 - 11.0 MODERATE RISK >11.0 HIGH RISK Performed By: #### C MP, BNP, TSH, HSTROPN #### [facility] [address] [address] [address] Emily Hercules Cholesterol [Mass/Vol] 183 mg/dL Normal <=200 [facility] Comment on above: Performed By: #### C MP, BNP, TSH, HSTROPN #### [facility] [address] [address] [address] Emily Hercules Cholesterol in HDL [Mass/Vol] 43 mg/dL Normal [facility] Comment on above: Performed By: #### C MP, BNP, TSH, HSTROPN #### [facility] [address] [address] [address] Emily Hercules Cholesterol in LDL [Mass/Vol] 109.0 mg/dL Normal [facility] Comment on above: Performed By: #### C MP, BNP, TSH, HSTROPN #### [facility] [address] [address] [address] Emily Hercules Cholesterol.total/Ch olesterol in HDL [Mass ratio] 4.3 {ratio} Normal [facility] Comment on above: Performed By: #### C MP, BNP, TSH, HSTROPN #### [facility] [address] [address] [address] Emily Hercules HDL NORMAL > or = 60 mg/dl - LO W CARDIOVASCULAR RISK <40 mg/dl - HIGH CARDIOVASCULAR RISK Normal [facility] Comment on above: Performed By: #### C MP, BNP, TSH, HSTROPN #### [facility] [address] [place] [address] Dr. Emily Hercules LDL CALC NORMAL SEE BELOW Normal [facility] Comment on above: Result Comment: <100 mg/dl OPTIMAL 100 - 129 mg/dl NEAR OR ABOVE OPTIMAL 130 - 159 mg/dl BORDERLINE HIGH 160 - 189 mg/dl HIGH >190 mg/dl VERY HIGH Performed By: #### C MP, BNP, TSH, HSTROPN #### [facility] [address] [place] [address] Dr. Emily Hercules Triglyceride [Mass/Vol] 155 mg/dL Critically high <=150 [facility] Comment on above: Performed By: #### C MP, BNP, TSH, HSTROPN #### [facility] [address] [place] [address] Dr. Emily Hercules VLDL CALC 31.0 mg/dL Normal [facility] Comment on above: Performed By: #### C MP, BNP, TSH, HSTROPN #### [facility] [address] [address] [address] Emily Hercules PROF 14(COMP METB)on 021 Albumin [Mass/Vol] 3.8 g/dL Normal 3.5-5.0 [facility] Comment on above: Performed By: #### T 7, CMP, LIPID, TSH #### [facility] [address] [place], [place] [id number] Dr. Emily Hercules Albumin/Globulin [Mass ratio] 1.1 {ratio} Normal [facility] Comment on above: Performed By: #### T 7, CMP, LIPID, TSH #### [facility] [address] [place] [address] Dr. Emily Hercules ALP [Catalytic activity/Vol] 57 U/L Normal 38-126 [facility] Comment on above: Performed By: #### T 7, CMP, LIPID, TSH #### [facility] [address] [place] [address] Dr. Emily Hercules ALT [Catalytic activity/Vol] 57 U/L Critically high 9-52 [facility] Comment on above: Performed By: #### T 7, CMP, LIPID, TSH #### [facility] [address] [place] [address] Dr. Emily Hercules Anion gap [Moles/Vol] 11.7 mmol/L Normal [facility] Comment on above: Performed By: #### T 7, CMP, LIPID, TSH #### [facility] [address] [place] [address] Dr. Emily Hercules AST [Catalytic activity/Vol] 35 U/L Normal 14-36 [facility] Comment on above: Performed By: #### T 7, CMP, LIPID, TSH #### [facility] [address] [place] [address] Dr. Emily Hercules Bilirubin [Mass/Vol] 0.7 mg/dL Normal 0.2-1.3 [facility] Comment on above: Performed By: #### T 7, CMP, LIPID, TSH #### [facility] [address] [place] [address] Dr. Emily Hercules Calcium [Mass/Vol] 8.8 mg/dL Normal 8.4-10.2 [facility] Comment on above: Performed By: #### T 7, CMP, LIPID, TSH #### [facility] [address] [place] [address] Dr. Emily Hercules Chloride [Moles/Vol] 105 mmol/L Normal 98-107 [facility] Comment on above: Performed By: #### T 7, CMP, LIPID, TSH #### [facility] [address] [address] [address] Emily Hercules CO2 [Moles/Vol] 26.1 mmol/L Normal 22.0-30.0 [facility] Comment on above: Performed By: #### T 7, CMP, LIPID, TSH #### [facility] [address] [address] [address] Emily Hercules Creatinine [Mass/Vol] 1.34 mg/dL Critically high 0.52-1.04 [facility] Comment on above: Performed By: #### T 7, CMP, LIPID, TSH #### [facility] [address] [place] [address] Dr. Emily Hercules EGFR-AF [facility] 51 mL/min/1.73m2 Critically low >=60 [facility] Comment on above: Performed By: #### T 7, CMP, LIPID, TSH #### [facility] [address] [place] [address] Dr. Emily Hercules EGFR-NON AF [facility] 42 mL/min/1.73m2 Critically low >=60 [facility] Comment on above: Performed By: #### T 7, CMP, LIPID, TSH #### [facility] [address] [place] [address] Dr. Emily Hercules Globulin (S) [Mass/Vol] 3.4 g/dL Normal [facility] Comment on above: Performed By: #### T 7, CMP, LIPID, TSH #### [facility] [address] [place] [address] Dr. Emily Hercules Glucose [Mass/Vol] 92 mg/dL Normal 74-106 [facility] Comment on above: Performed By: #### T 7, CMP, LIPID, TSH #### [facility] [address] [place] [address] Dr. Emily Hercules Potassium [Moles/Vol] 3.8 mmol/L Normal 3.4-5.0 [facility] Comment on above: Performed By: #### T 7, CMP, LIPID, TSH #### [facility] [address] [place] [address] Dr. Emily Hercules Protein [Mass/Vol] 7.2 g/dL Normal 6.1-8.2 [facility] Comment on above: Performed By: #### T 7, CMP, LIPID, TSH #### [facility] [address] [place] [address] Dr. Emily Hercules Sodium [Moles/Vol] 139 mmol/L Normal 137-145 The [facility] Comment on above: Performed By: #### T 7, CMP, LIPID, TSH #### [facility] [address] [place] [address] Dr. Emily Hercules Urea nitrogen [Mass/Vol] 21.0 mg/dL Critically high 7.0-17.0 [facility] Comment on above: Performed By: #### T 7, CMP, LIPID, TSH #### [facility] [address] [place] [address] Dr. Emily Hercules Urea nitrogen/Creatinine [Mass ratio] 15.7 mg/mg Normal [facility] Comment on above: Performed By: #### T 7, CMP, LIPID, TSH #### [facility] [address] [place] [address] Dr. Emily Hercules TSHon 09-02-2021 TSH 1.130 uIU/mL Normal 0.470-4.680 [facility] Comment on above: Performed By: #### T 7, CMP, LIPID, TSH #### [facility] [address] [place] [address] Dr. Emily Hercules TSH RANGE SEE BELOW Normal [facility] Comment on above: Result Comment: <0.3 4 UIU/ml HYPERTHYROID 0.34-5.60 UIU/ml EUTHYROID >5.60 UIU/ml HYPOTHYROID Performed By: #### T 7, CMP, LIPID, TSH #### [facility] [address] [place] [address] Dr. Emily Hercules BNPon 08-24-2021 Natriuretic peptide B (Bld) [Mass/Vol] 98.0 pg/mL Normal <=450.0 [facility] Comment on above: Performed By: #### C MP, BNP, TSH, HSTROPN #### [facility] [address] [place] [address] Dr. Emily Hercules CBC AUTO DIFFon 08-24-2021 BASO # 0.0 103/ul Normal 0.0-0.1 [facility] Comment on above: Performed By: #### C MP, BNP, TSH, HSTROPN #### [facility] [address] [place] [address] Dr. Emily Hercules Basophils/100 WBC (Bld) 0.6 % Normal 0.2-2.0 [facility] Comment on above: Performed By: #### C MP, BNP, TSH, HSTROPN #### [facility] [address] [place] [address] Dr. Emily Hercules EO # 0.3 103/ul Normal 0.0-0.7 [facility] Comment on above: Performed By: #### C MP, BNP, TSH, HSTROPN #### [facility] [address] [place] [address] Dr. Emily Hercules Eosinophils/100 WBC (Bld) 4.1 % Normal 0.9-7.0 [facility] Comment on above: Performed By: #### C MP, BNP, TSH, HSTROPN #### [facility] [address] [place] [address] Dr. Emily Hercules Erythrocyte distribution width (RBC) [Ratio] 13.6 % Normal 11.0-15.0 [facility] Comment on above: Performed By: #### C MP, BNP, TSH, HSTROPN #### [facility] [address] [place] [address] Dr. Emily Hercules Hematocrit (Bld) [Volume fraction] 39.4 % Normal 36.0-48.0 [facility] Comment on above: Performed By: #### C MP, BNP, TSH, HSTROPN #### [facility] [address] [place] [address] Dr. Emily Hercules Hemoglobin (Bld) [Mass/Vol] 13.4 g/dL Normal 12.0-16.0 [facility] Comment on above: Performed By: #### C MP, BNP, TSH, HSTROPN #### [facility] [address] [place] [address] Dr. Emily Hercules IG # 0.02 10e3/ul Normal 0.00-0.03 [facility] Comment on above: Performed By: #### C MP, BNP, TSH, HSTROPN #### [facility] [address] [place] [address] Dr. Emily Hercules IG % 0.3 % Normal 0.0-0.5 [facility] Comment on above: Performed By: #### C MP, BNP, TSH, HSTROPN #### [facility] [address] [place] [address] Dr. Emily Hercules LYMPH # 1.8 103/ul Normal 1.2-3.8 [facility] Comment on above: Performed By: #### C MP, BNP, TSH, HSTROPN #### [facility] [address] [place] [address] Dr. Emily Hercules Lymphocytes/100 WBC (Bld) 25.9 % Normal 20.5-60.0 [facility] Comment on above: Performed By: #### C MP, BNP, TSH, HSTROPN #### [facility] [address] [place] [address] Dr. Emily Hercules MANUAL DIFF REQ NO Normal [facility] Comment on above: Performed By: #### C MP, BNP, TSH, HSTROPN #### [facility] [address] [place] [address] Dr. Emily Hercules MCH (RBC) [Entitic mass] 29.9 pg Normal 26.7-34.0 [facility] Comment on above: Performed By: #### C MP, BNP, TSH, HSTROPN #### [facility] [address] [place] [address] Dr. Emily Hercules MCHC (RBC) [Mass/Vol] 34.0 g/dL Normal 29.9-35.2 [facility] Comment on above: Performed By: #### C MP, BNP, TSH, HSTROPN #### [facility] [address] [place] [address] Dr. Emily Hercules MCV (RBC) [Entitic vol] 87.9 fL Normal 81.0-99.0 [facility] Comment on above: Performed By: #### C MP, BNP, TSH, HSTROPN #### [facility] [address] [place] [address] Dr. Emily Hercules MONO # 0.4 103/ul Normal 0.3-0.8 [facility] Comment on above: Performed By: #### C MP, BNP, TSH, HSTROPN #### [facility] [address] [place] [address] Dr. Emily Hercules Monocytes/100 WBC (Bld) 5.8 % Normal 1.7-12.0 [facility] Comment on above: Performed By: #### C MP, BNP, TSH, HSTROPN #### [facility] [address] [place] [address] Dr. Emily Hercules NEUT # 4.4 103/ul Normal 1.4-6.5 [facility] Comment on above: Performed By: #### C MP, BNP, TSH, HSTROPN #### [facility] [address] [place] [address] Dr. Emily Hercules Neutrophils/100 WBC (Bld) 63.3 % Normal 43.0-75.0 [facility] Comment on above: Performed By: #### C MP, BNP, TSH, HSTROPN #### [facility] [address] [place] [address] Dr. Emily Hercules Platelet mean volume (Bld) [Entitic vol] 11.7 fL Normal 9.5-13.5 [facility] Comment on above: Performed By: #### C MP, BNP, TSH, HSTROPN #### [facility] [address] [place] [address] Dr. Emily Hercules PLT 122 103/ul Critically low 150-450 [facility] Comment on above: Performed By: #### C MP, BNP, TSH, HSTROPN #### [facility] [address] [place], [place] [address] Dr. Emily Hercules RBC 4.48 106/ul Normal 4.20-5.40 [facility] Comment on above: Performed By: #### C MP, BNP, TSH, HSTROPN #### [facility] [address] [place], [place] [address] Dr. Emily Hercules WBC 6.9 103/ul Normal 4.0-11.0 [facility] Comment on above: Performed By: #### C MP, BNP, TSH, HSTROPN #### [facility] [address] [place], [place] [address] Dr. Emily Hercules CTA CHEST WO W CONon 10-27-2 021 CTA CHEST WO W CON EXAM: CTA CHEST WO W CON COMPARISON: 01/27/2016. CLINICAL INDICATION: Pulmonary embolism TECHNIQUE: CT angiography of the pulmonary arteries following the administration of 100 mL Omnipaque 300 intravenous contrast. MIP (maximum intensity projection) images or 3D post processing was performed. Dose reduction techniques were achieved by using automated exposure control and/or adjustment of mA and/or kV according to patient size and/or use of iterative reconstruction technique. FINDINGS: LOWER NECK AND CHEST WALL: Unremarkable. MEDIASTINUM AND NORMA: No mediastinal or hilar pathologic lymphadenopathy by CT size criteria. Large hiatal hernia containing the entire stomach. This is unchanged compared to prior from 2016. CARDIOVASCULAR: No evidence of pulmonary embolism. No pathologic dilatation of the main pulmonary arteries. No pericardial effusion. No thoracic aortic aneurysm or dissection. LUNGS: No focal consolidation. No evidence of pulmonary edema. Mild atelectasis/scarring associated with large hiatal hernia. There is also mild lingular atelectasis/scarring. A few subcentimeter pulmonary nodules which appear to be along the fissure on the left on series 5 images 39 and 40, unchanged since 2016. No suspicious pulmonary nodules identified. AIRWAYS: The central airways are patent. Diffuse peribronchial thickening. PLEURA: No pleural effusion or pneumothorax is seen. UPPER ABDOMEN: Images through the upper abdomen reveal no acute abnormality. BONES: No suspicious or aggressive bone lesions are seen. No acute fractures are seen. IMPRESSION: No evidence of pulmonary embolism or acute cardiopulmonary abnormality. Large hiatal hernia containing the entire stomach is unchanged since 2016. There is associated minimal adjacent atelectasis/scarring and minimal lingular atelectasis/scarring. The herniated stomach appears thickened, although CT is not the preferred modality for evaluation and could relate to lack of distention. Consider gastroenterology referral/evaluation and consider outpatient endoscopy. Diffuse peribronchial thickening, small airways disease versus bronchitis. No evidence of volume overload. Electronically authenticated by: NATY BALDERRAMA Date: 2021-08-24 17:14 Normal [facility] Covid-19 PCR (CVDTBH)on 07-30 SARS-CoV-2 (COVID-19) RNA SUKHWINDER+probe Ql (Unsp spec) Not detected Normal NOT DETECTED [facility] Comment on above: Result Comment: This test is not yet approved or cleared by the [place] FDA. When there are no FDA-approved or cleared tests available, and other criteria are met, FDA can make tests available under an emergency access mechanism called an Emergency Use Authorization (EUA). The EUA for this test is supported by the [place] of Health and Human Service's (HHS's) declaration that circumstances exist to justify the emergency use of in vitro diagnostics for the detection and/or diagnosis of the virus that causes COVID-19. This EUA will remain in effect (meaning this test can be used) for the duration of the COVID-19 declaration justifying emergency of IVDs, unless it is terminated or revoked by FDA (after which the test may no longer be used). When diagnostic testing is negative, the possibility of a false negative should be considered in the context of a patient's recent exposures and the presence of clinical signs and symptoms consistent with SARS-CoV-2. Performed By: #### C MP, BNP, TSH, HSTROPN #### [facility] [address] [address] [address] Emily Hercules LACTATE/LACTIC ACIDon 2020 Lactate [Moles/Vol] 0.5 mmol/L Critically low 0.7-2.0 [facility] Comment on above: Performed By: #### C MP, BNP, TSH, HSTROPN #### [facility] [address] [address] [address] Emily Hercules PROF 14(COMP METB)on 021 Albumin [Mass/Vol] 3.7 g/dL Normal 3.5-5.0 [facility] Comment on above: Performed By: #### C MP, BNP, TSH, HSTROPN #### [facility] [address] [place] [address] Dr. Emily Hercules Albumin/Globulin [Mass ratio] 1.0 {ratio} Normal [facility] Comment on above: Performed By: #### C MP, BNP, TSH, HSTROPN #### [facility] [address] [place] [address] Dr. Emily Hercules ALP [Catalytic activity/Vol] 63 U/L Normal 38-126 [facility] Comment on above: Performed By: #### C MP, BNP, TSH, HSTROPN #### [facility] [address] [place] [address] Dr. Emily Hercules ALT [Catalytic activity/Vol] 66 U/L Critically high 9-52 [facility] Comment on above: Performed By: #### C MP, BNP, TSH, HSTROPN #### [facility] [address] [place] [address] Dr. Emily Hercules Anion gap [Moles/Vol] 12.3 mmol/L Normal [facility] Comment on above: Performed By: #### C MP, BNP, TSH, HSTROPN #### [facility] [address] [place] [address] Dr. Emily Hercules AST [Catalytic activity/Vol] 48 U/L Critically high 14-36 [facility] Comment on above: Performed By: #### C MP, BNP, TSH, HSTROPN #### [facility] [address] [place] [address] Dr. Emily Hercules Bilirubin [Mass/Vol] 0.6 mg/dL Normal 0.2-1.3 [facility] Comment on above: Performed By: #### C MP, BNP, TSH, HSTROPN #### [facility] [address] [place] [address] Dr. Emily Hercules Calcium [Mass/Vol] 9.2 mg/dL Normal 8.4-10.2 [facility] Comment on above: Performed By: #### C MP, BNP, TSH, HSTROPN #### [facility] [address] [place] [address] Dr. Emily Hercules Chloride [Moles/Vol] 103 mmol/L Normal 98-107 [facility] Comment on above: Performed By: #### C MP, BNP, TSH, HSTROPN #### [facility] [address] [address] [address] Emily Hercules CO2 [Moles/Vol] 25.2 mmol/L Normal 22.0-30.0 [facility] Comment on above: Performed By: #### C MP, BNP, TSH, HSTROPN #### [facility] [address] [place] [address] Dr. Emily Hercules Creatinine [Mass/Vol] 1.49 mg/dL Critically high 0.52-1.04 [facility] Comment on above: Performed By: #### C MP, BNP, TSH, HSTROPN #### [facility] [address] [place] [address] Dr. Emily Hercules EGFR-AF [facility] 45 mL/min/1.73m2 Critically low >=60 [facility] Comment on above: Performed By: #### C MP, BNP, TSH, HSTROPN #### [facility] [address] [place] [address] Dr. Emily Hercules EGFR-NON AF [facility] 37 mL/min/1.73m2 Critically low >=60 [facility] Comment on above: Performed By: #### C MP, BNP, TSH, HSTROPN #### [facility] [address] [place] [address] Dr. Emily Hercules Globulin (S) [Mass/Vol] 3.6 g/dL Normal [facility] Comment on above: Performed By: #### C MP, BNP, TSH, HSTROPN #### [facility] [address] [place] [address] Dr. Emily Hercules Glucose [Mass/Vol] 100 mg/dL Normal 74-106 [facility] Comment on above: Performed By: #### C MP, BNP, TSH, HSTROPN #### [facility] [address] [address] [address] Emily Hercules Potassium [Moles/Vol] 4.5 mmol/L Normal 3.4-5.0 [facility] Comment on above: Performed By: #### C MP, BNP, TSH, HSTROPN #### [facility] [address] [place] [address] Dr. Emily Hercules Protein [Mass/Vol] 7.3 g/dL Normal 6.1-8.2 [facility] Comment on above: Performed By: #### C MP, BNP, TSH, HSTROPN #### [facility] [address] [address] [address] Emily Hercules Sodium [Moles/Vol] 136 mmol/L Critically low 137-145 [facility] Comment on above: Performed By: #### C MP, BNP, TSH, HSTROPN #### [facility] [address] [address] [address] Emily Hercules Urea nitrogen [Mass/Vol] 22.0 mg/dL Critically high 7.0-17.0 [facility] Comment on above: Performed By: #### C MP, BNP, TSH, HSTROPN #### [facility] [address] [address] [address] Emily Hercules Urea nitrogen/Creatinine [Mass ratio] 14.8 mg/mg Normal [facility] Comment on above: Performed By: #### C MP, BNP, TSH, HSTROPN #### [facility] [address] [place] [address] Dr. Emily Hercules PROTIMEon 08-24-2021 INR Coag (PPP) [Relative time] 1.08 {INR} Normal [facility] Comment on above: Performed By: #### C MP, BNP, TSH, HSTROPN #### [facility] [address] [place] [address] Dr. Emily Hercules INR GUIDELINES SEE BELOW Normal [facility] Comment on above: Result Comment: GUILLERMO RED INR: 2.0 - 3.0 CONDITIONS NOT LISTED BELOW 2.5 - 3.5 FOR PROSTHETIC HEART VALVE REPLACEMENT 2.5 - 3.5 RECURRENT THROMBOSIS Performed By: #### C MP, BNP, TSH, HSTROPN #### [facility] [address] [place] [address] Dr. Emily Hercules PT Coag (PPP) [Time] 11.6 s Normal 9.0-11.6 [facility] Comment on above: Performed By: #### C MP, BNP, TSH, HSTROPN #### [facility] [address] [place] [address] Dr. Emily Hercules PTTon 08-24-2021 aPTT Coag (Bld) [Time] 29.6 s Normal 22.3-36.2 [facility] Comment on above: Performed By: #### C MP, BNP, TSH, HSTROPN #### [facility] [address] [place] [address] Dr. Emily Hercules TROPONIN, HIGH SENSITIVITYon 08-24-2021 HSTROP 4.9 pg/mL Normal 4.0-35.5 [facility] Comment on above: Result Comment: CUT- OFF POINTS HAVE BEEN ESTABLISHED BASED ON THE FOURTH UNIVERSAL DEFINITIONS OF MYOCARDIAL INFARCTION. THE UPPER REFERENCE LIMIT (URL) OF TROPONIN, DEFINED THE 99TH PERCENTILE OF cTnI DISTRIBUTION IN A REFERENCE POPULATION, HAS BEEN CONFIRMED THE DECISION THRESHOLD FOR IA DIAGNOSIS. Performed By: #### C MP, BNP, TSH, HSTROPN #### [facility] [address] [place] [address] Dr. Emily Hercules HSTROP 7.0 pg/mL Normal 4.0-35.5 [facility] Comment on above: Result Comment: CUT- OFF POINTS HAVE BEEN ESTABLISHED BASED ON THE FOURTH UNIVERSAL DEFINITIONS OF MYOCARDIAL INFARCTION. THE UPPER REFERENCE LIMIT (URL) OF TROPONIN, DEFINED THE 99TH PERCENTILE OF cTnI DISTRIBUTION IN A REFERENCE POPULATION, HAS BEEN CONFIRMED THE DECISION THRESHOLD FOR IA DIAGNOSIS. Performed By: #### C MP, BNP, TSH, HSTROPN #### [facility] [address] [place] [address] Dr. Emily Hercules TSHon 08-24-2021 TSH 1.614 uIU/mL Normal 0.470-4.680 [facility] Comment on above: Performed By: #### C MP, BNP, TSH, HSTROPN #### [facility] [address] [place], [place] [address] Dr. Emily Hercules TSH RANGE SEE BELOW Normal [facility] Comment on above: Result Comment: <0.3 4 UIU/ml HYPERTHYROID 0.34-5.60 UIU/ml EUTHYROID >5.60 UIU/ml HYPOTHYROID Performed By: #### C MP, BNP, TSH, HSTROPN #### [facility] [address] [place], [place] [address] Dr. Emily Hercules US KARINE DOP LEG RTon 08-24-20 US KARINE DOP LEG RT EXAMINATION: US KARINE DOP LEG RT HISTORY: Deep venous thrombosis COMPARISON: No relevant comparison available. FINDINGS: REGION: Right lower extremity THROMBI: None. COMPRESSIBILITY: Normal compressibility. FLOW: Normal waveform and antegrade flow between 5 and 20 cm/s. OTHER: None. IMPRESSION: 1. No deep vein thrombus within the right lower extremity. Electronically authenticated by: MARCIAL BOB Date: 2021-08-24 16:22 Normal [facility] PROGRESSon 01-01-2020 PROGRESS HNO ID: [id number] Author: Jane (Phd) Bo Service: ? Author Type: Psychologist Type: Progress Notes Filed: 01/01/2020 8:43 AM Note Text: Received medical records from [facility] dated 2018- present. No records from mental health providers were included. Records included office notes from patient's PCP, Cabrera Jones MD, and various consults. Bipolar disorder was listed on the problem list earlier in the records, though the most recent note by Cabrera Jones MD on 11/14/19 indicated that she does not meet the dx of bipolar, only uses PRN vistaril, and has had significant anxiety in the past, but is much better now and not needing meds. Most recent note has been sent to scanning. Message sent to navigator indicating patient may be scheduled for a BMI psychology evaluation. Jane Soriano, Ph.D. Psychologist Normal [facility] PROGRESSon 11-18-2019 PROGRESS HNO ID: [id number] Author: Jane (Phd) Bo Service: ? Author Type: Psychologist Type: Progress Notes Filed: 11/18/2019 12:04 PM Note Text: Received a one-line letter from [place] [facility] stating patient does not have uncontrolled bipolar disorder. Message sent to navigator requesting past 24 months of mental health records for further review. Jane Soriano, Ph.D. Psychologist [facility] PROGRESSon 10-09-2019 PROGRESS HNO ID: [id number] Author: Merlin Ardon Service: ? Author Type: Physician Type: Progress Notes Filed: 10/09/2019 2:33 PM Note Text: I have read and reviewed the documentation and agree. I wish to add the followingI wish to add the following findings which will be communicated back to the requesting physician. I spent more than 50 % of the visit face to face counseling the patient on the plan and treatment options. The total time face to face visit was 15 minutes. A: pt with type III PEH and morbid obesity (BMI of 44.3). I have once again reiterated her 3 choices and given her increasing BMI she will f/u with Dr. Romero for a REYGB. P: RTC prn. Merlin Ardon MD [facility] CNOVon 10-08-2019 CNOV Office Visit (KATE ) KIYA BHAT ([id number]) 1975 F Date Time Provider Department 10/08/19 3:20 PM MERLIN ARDON During your visit today, we recorded the following information about you: Temperature Pulse Blood pressure Weight 98.4 degrees 85/minute 131/81 113.4 kg Height 1.6 m Darnell Cornelius, RN, RN 10/09/2019 2:33 PM Signed Pt here for follow up visit: . paraesophageal hernia ? . Last clinic note 07/07/19 per Merlin Ardon M.D. Impression: Patient with intra-thoracic stomach and morbid obesity. She has SOB but no significant obstructive sx. I have discussed three options; 1) RONALD gastric bypass with PEH repair, 2) Weight loss to BMI close to 180 lbs and conventional repair and 3) Lap reduction of hernia with gastropexy. She would like to meet with the bariatric team before deciding. ? Plan: Consult Dr. Karthikeyan Romero for REYGB RTC in 3 months for weight check and further surgical planning if bypass is not chosen. Wt on 07/07/19 244lb BMI 43.23 Today's visit 10/08/19: BP 131/81 Pulse 85 Temp 98.4 Ht 5' 3 (1.60m) Wt 250 lb (113.4kg) SpO2 95% BMI 44.30 kg/(m2). Up 6 lbs pt. r/t stopping smoking. . Consult Dr. Karthikeyan Romero for REYGB order placed 07/07/2049 . Meds and allergies reviewed. See nurse's notes for risk assessment. HAWK Pretty MD 10/09/2019 2:33 PM Signed I have read and reviewed the documentation and agree. I wish to add the followingI wish to add the following findings which will be communicated back to the requesting physician. I spent more than 50 % of the visit face to face counseling the patient on the plan and treatment options. The total time face to face visit was 15 minutes. A: pt with type III PEH and morbid obesity (BMI of 44.3). I have once again reiterated her 3 choices and given her increasing BMI she will f/u with Dr. Romero for a REYGB. P: RTC prn. Merlin Ardon MD Referring Provider: MERLIN ARDON [[id number]] Allergies As of Date: 10/08/2019 (No Known Allergies) Date Reviewed: 10/08/2019 Reviewed by: Darya Tony - Fully Assessed Primary Visit Diagnosis:Diaphragmat ic hernia without obstruction and without gangrene [K44.9] Prescriptions as of 10/08/2019 Sig: MULTIVITAMIN TABLET Take 1 tablet by mouth once d* DICLOFENAC SODIUM 75 MG TABLE* Take 1 tablet by mouth twice * OMEPRAZOLE 40 MG CAPSULE,LORI* Take 1 capsule by mouth twice* FERROUS SULFATE 325 MG (65 MG* Take 1 tablet by mouth twice * CHOLECALCIFEROL (VITAMIN D3) * Take 1 tablet by mouth once d* CALCIUM CARBONATE 500 MG (1,2* Take 1 tablet by mouth once d* IBUPROFEN 200 MG CAPSULE Take 1-2 capsules by mouth as* Problem List As Of Date: 10/08/2019 (None) Disposition: Return for RETURN TO [facility] NEEDED. Follow-up and Disposition History Recorded Encounter Status:Closed by MERLIN ARDON MD on 10/09/19 [facility] PROGRESSon 10-06-2019 PROGRESS HNO ID: [id number] Author: Darnell (Rn) HAWK Cornelius Service: ? Author Type: Registered Nurse Type: Progress Notes Filed: 10/09/2019 2:33 PM Note Text: Pt here for follow up visit: . paraesophageal hernia ? . Last clinic note 07/07/19 per Merlin Ardon M.D. Impression: Patient with intra-thoracic stomach and morbid obesity. She has SOB but no significant obstructive sx. I have discussed three options; 1) RONALD gastric bypass with PEH repair, 2) Weight loss to BMI close to 180 lbs and conventional repair and 3) Lap reduction of hernia with gastropexy. She would like to meet with the bariatric team before deciding. ? Plan: Consult Dr. Karthikeyan Romero for REYGB RTC in 3 months for weight check and further surgical planning if bypass is not chosen. Wt on 07/07/19 244lb BMI 43.23 Today's visit 10/08/19: BP 131/81 Pulse 85 Temp 98.4 Ht 5' 3 (1.60m) Wt 250 lb (113.4kg) SpO2 95% BMI 44.30 kg/(m2). Up 6 lbs pt. r/t stopping smoking. . Consult Dr. Karthikeyan Romero for REYGB order placed 07/07/2049 . Meds and allergies reviewed. See nurse's notes for risk assessment. Darnell Cornelius RN [facility] PROGRESSon 07-08-2019 PROGRESS HNO ID: [id number] Author: Merlin Ardon Service: ? Author Type: Physician Type: Progress Notes Filed: 07/08/2019 10:02 PM Note Text: I have read and reviewed the documentation and agree. I wish to add the followingI wish to add the following findings which will be communicated back to the requesting physician. Merlin Ardon MD [facility] CNOVon 07-07-2019 CNOV Office Visit (THORMN ) KIYA BHAT ([id number]) 1975 F Date Time Provider Department 07/07/19 9:30 AM MERLIN ARDON During your visit today, we recorded the following information about you: Temperature Pulse Blood pressure Weight 98.2 degrees 68/minute 120/74 110.7 kg Height 1.6 m Merlin Ardon MD 07/08/2019 10:02 PM Signed [facility] THOR[facility] SURGERY OUTPATIENT CONSULT NOTE Kiya Bhat [id number] Requesting Provider: Dr. Koehler Thoracic Physician: Merlin Ardon MD Chief Complaint: paraesophageal hernia Impression: Patient with intra-thoracic stomach and morbid obesity. She has SOB but no significant obstructive sx. I have discussed three options; 1) RONALD gastric bypass with PEH repair, 2) Weight loss to BMI close to 180 lbs and conventional repair and 3) Lap reduction of hernia with gastropexy. She would like to meet with the bariatric team before deciding. Plan: Consult Dr. Karthikeyan Romero for REYGB RTC in 3 months for weight check and further surgical planning if bypass is not chosen. HPI: Kiya Bhat is a 44 year old White female referred by Dr. Koehler for an opinion regarding management of Hiatal Hernia. she is currently having SOB. (document at least 4 of these elements) Quality: stable Severity: moderate Timing: daily Context: during activity ECOG Score: 2 Living arrangement: Lives with family/friend Functional status: Independent Unintentional weight loss over last 3 months: No PAST MEDICAL HISTORY: PAST MEDICAL HISTORY Diagnosis Date - Fibromyalgia - Hernia - lesion left lower abdominal area - Hiatal hernia - Kidney stones - NEGATIVE MEDICAL HISTORY No tb, dm, heart and ca - OA (osteoarthritis) - SOB (shortness of breath) PAST SURGICAL HISTORY: PAST SURGICAL HISTORY Procedure Laterality Date - CHOLECYSTECTOMY 1996 - OTHER Right 2000 right knee scope - TUBAL LIGATION HX 1996 FAMILY HISTORY: FAMILY HISTORY Problem Relation Age of Onset - Diabetes Mother - Heart Attack Mother - other (connective tissue disorder) Mother - other (Other) Father not sure of medical history - Diabetes Brother - Kidney Disease Brother kidney stones - Hearing Loss Brother SOCIAL HISTORY: Social History Tobacco Use - Smoking status: Former Smoker Packs/day: 1.50 Years: 18.00 Pack years: 27.00 Last attempt to quit: 05/06/2019 Years since quittin.1 - Smokeless tobacco: Never Used - Tobacco comment: using E cig Substance Use Topics - Alcohol use: Not Currently - Drug use: Never MEDICATIONS: Prior to Admission Medications: multivitamin (MULTIPLE VITAMINS) tablet Take 1 tablet by mouth once daily. diclofenac, EC, (VOLTAREN) 75 mg EC tablet Take 1 tablet by mouth twice daily. Omeprazole 40 mg capsule Take 1 capsule by mouth twice daily. ferrous sulfate 325 mg (65 mg iron) tablet Take 1 tablet by mouth twice daily. cholecalciferol (VITAMIN D-3) 5,000 unit tab Take 1 tablet by mouth once daily. fvyzrvm-kyoezdyin-gxy dunaway D3 (CALCIUM 500+D) 500 mg(1,250mg) -200 unit per tablet Take 1 tablet by mouth once daily. Ibuprofen 200 mg cap Take 1-2 capsules by mouth as needed (for pain). ALLERGIES: ALLERGIES No Known Allergies Chemical Exposure: No Asbestos Exposure No COMPLETE REVIEW OF SYSTEMS Constitutional: Positive for fatigue HEENT: Head Positive for headache Resp: Positive for non-productive cough, shortness of breath on exertion, shortness of breath limiting daily activity and shortness of breath after 2 flights of stairs Cardiovascular: Positive for chest pain epigastric GI: Negative for abdominal discomfort, blood in stools or black stools or change in bowel habits : No history of dysuria, frequency, or incontinence and No difficulty urination, nocturia >1 times per night or hematuria Endo: Positive for cold intolerance Heme/Lymph: Negative for prolonged bleeding, bruising easily or swollen nodes Neurologic: Positive for seizures worked up nondiagnostic none in 6 years Integumentary: Negative for lesions, rash, and itching. Additional systems reviewed: No additional systems reviewed PHYSICAL EXAM BP 120/74 Pulse 68 Temp 98.2 Ht 5' 3 (1.60m) Wt 244 lb (110.7kg) SpO2 96% BMI 43.23 kg/(m2). Constitutional: Well developed and Obese HEENT: PERRLA Resp: Clear Cardiovascular: Regular rate AND rhythm GI: Soft, round Integumentary: Warm Musculoskeletal: No deformities Neurological/Psychiat caryn: Oriented to time, place AND person Additional systems reviewed: No additional systems reviewed DATA: Radiology: CCT: Intrathoracic stomach No abdominal wall hernia except a small umbilical hernia I have personally reviewed the following images/data: CT scan Outside Paper Medical Records Review personally performed by: Merlin Ardon MD SIGNATURE: Merlin Ardon MD PAGER: [phone] DATE of SERVICE: 07/07/2019 TIME of SERVICE: 9:59 AM ouside imaging uploaded to dicom disc returned to pt Funmilayo Nuñez RN, RN 07/07/2019 10:10 AM Signed AMBULATORY PATIENT EDUCATION READINESS TO LEARN Cognitive Ability: Alert and oriented Motivation To Learn: Interested Family Support: High - Very involved in pt care Instruction Provided To: Patient AND Family Patient Learns Best By: Multiple Methods Factors Affecting Learning: None Physical Limitations Affecting Learning: None LEARNING RESPONSE Diagnosis: hiatal hernia Education Topic: Consultation Process Teaching Points: Logistics / Protocols /Complication Prevention How prepared do you feel you are for this visit: Somewhat Instruction/Supplemen santa Materials: Individual Instruction Patient/Family Response: Somewhat Follow up plan: Patient/Family to call Thoracic Surgery with any further questions Referral (Recommendation): None Teach completed, topic: consultation process HAWK Johnson MD 07/08/2019 10:02 PM Signed I have read and reviewed the documentation and agree. I wish to add the followingI wish to add the following findings which will be communicated back to the requesting physician. Merlin Ardon MD Referring Provider: LILIA KOEHLER JR [[id number]] Allergies As of Date: 07/07/2019 (No Known Allergies) Date Reviewed: 07/07/2019 Reviewed by: Darya Tony - Fully Assessed Primary Visit Diagnosis:Diaphragmat ic hernia without obstruction and without gangrene [K44.9] Order(s):[facility] [9405025] Order #: [id number]: 1 Prescriptions as of 07/07/2019 Sig: MULTIVITAMIN TABLET Take 1 tablet by mouth once d* DICLOFENAC SODIUM 75 MG TABLE* Take 1 tablet by mouth twice * OMEPRAZOLE 40 MG CAPSULE,LORI* Take 1 capsule by mouth twice* FERROUS SULFATE 325 MG (65 MG* Take 1 tablet by mouth twice * CHOLECALCIFEROL (VITAMIN D3) * Take 1 tablet by mouth once d* CALCIUM CARBONATE 500 MG (1,2* Take 1 tablet by mouth once d* IBUPROFEN 200 MG CAPSULE Take 1-2 capsules by mouth as* Problem List As Of Date: 07/07/2019 (None) Visit Notes: >> Funmilayo Lujan) HAWK Nuñez Mon Jul 07, 2019 10:05 AM Status: Signed AMBULATORY PATIENT EDUCATION READINESS TO LEARN Cognitive Ability: Alert and oriented Motivation To Learn: Interested Family Support: High - Very involved in pt care Instruction Provided To: Patient AND Family Patient Learns Best By: Multiple Methods Factors Affecting Learning: None Physical Limitations Affecting Learning: None LEARNING RESPONSE Diagnosis: hiatal hernia Education Topic: Consultation Process Teaching Points: Logistics / Protocols /Complication Prevention How prepared do you feel you are for this visit: Somewhat Instruction/Supplemen santa Materials: Individual Instruction Patient/Family Response: Somewhat Follow up plan: Patient/Family to call Thoracic Surgery with any further questions Referral (Recommendation): None Teach completed, topic: consultation process Funmilayo Nuñez RN Disposition: Return in about 3 months (around 10/06/2019). Follow-up and Disposition History Recorded Encounter Status:Closed by MERLIN ARDON MD on 07/08/19 Normal [facility] PROGRESSon 07-07-2019 PROGRESS HNO ID: [id number] Author: Merlin Ardon Service: ? Author Type: Physician Type: Progress Notes Filed: 07/08/2019 10:02 PM Note Text: [facility] OUTPATIENT CONSULT NOTE Kiya Bhat [id number] Requesting Provider: Dr. Koehler Thoracic Physician: Merlin Ardon MD Chief Complaint: paraesophageal hernia Impression: Patient with intra-thoracic stomach and morbid obesity. She has SOB but no significant obstructive sx. I have discussed three options; 1) RONALD gastric bypass with PEH repair, 2) Weight loss to BMI close to 180 lbs and conventional repair and 3) Lap reduction of hernia with gastropexy. She would like to meet with the bariatric team before deciding. Plan: Consult Dr. Karthikeyan Romero for REYGB RTC in 3 months for weight check and further surgical planning if bypass is not chosen. HPI: Kiya Bhat is a 44 year old White female referred by Dr. Koehler for an opinion regarding management of Hiatal Hernia. she is currently having SOB. (document at least 4 of these elements) Quality: stable Severity: moderate Timing: daily Context: during activity ECOG Score: 2 Living arrangement: Lives with family/friend Functional status: Independent Unintentional weight loss over last 3 months: No PAST MEDICAL HISTORY: PAST MEDICAL HISTORY Diagnosis Date - Fibromyalgia - Hernia - lesion left lower abdominal area - Hiatal hernia - Kidney stones - NEGATIVE MEDICAL HISTORY No tb, dm, heart and ca - OA (osteoarthritis) - SOB (shortness of breath) PAST SURGICAL HISTORY: PAST SURGICAL HISTORY Procedure Laterality Date - CHOLECYSTECTOMY 1996 - OTHER Right 2001 right knee scope - TUBAL LIGATION HX 1996 FAMILY HISTORY: FAMILY HISTORY Problem Relation Age of Onset - Diabetes Mother - Heart Attack Mother - other (connective tissue disorder) Mother - other (Other) Father not sure of medical history - Diabetes Brother - Kidney Disease Brother kidney stones - Hearing Loss Brother SOCIAL HISTORY: Social History Tobacco Use - Smoking status: Former Smoker Packs/day: 1.50 Years: 18.00 Pack years: 27.00 Last attempt to quit: 05/06/2019 Years since quittin.1 - Smokeless tobacco: Never Used - Tobacco comment: using E cig Substance Use Topics - Alcohol use: Not Currently - Drug use: Never MEDICATIONS: Prior to Admission Medications: multivitamin (MULTIPLE VITAMINS) tablet Take 1 tablet by mouth once daily. diclofenac, EC, (VOLTAREN) 75 mg EC tablet Take 1 tablet by mouth twice daily. Omeprazole 40 mg capsule Take 1 capsule by mouth twice daily. ferrous sulfate 325 mg (65 mg iron) tablet Take 1 tablet by mouth twice daily. cholecalciferol (VITAMIN D-3) 5,000 unit tab Take 1 tablet by mouth once daily. pazqpqx-mcwnjlfjn-hfn dunaway D3 (CALCIUM 500+D) 500 mg(1,250mg) -200 unit per tablet Take 1 tablet by mouth once daily. Ibuprofen 200 mg cap Take 1-2 capsules by mouth as needed (for pain). ALLERGIES: ALLERGIES No Known Allergies Chemical Exposure: No Asbestos Exposure No COMPLETE REVIEW OF SYSTEMS Constitutional: Positive for fatigue HEENT: Head Positive for headache Resp: Positive for non-productive cough, shortness of breath on exertion, shortness of breath limiting daily activity and shortness of breath after 2 flights of stairs Cardiovascular: Positive for chest pain epigastric GI: Negative for abdominal discomfort, blood in stools or black stools or change in bowel habits : No history of dysuria, frequency, or incontinence and No difficulty urination, nocturia >1 times per night or hematuria Endo: Positive for cold intolerance Heme/Lymph: Negative for prolonged bleeding, bruising easily or swollen nodes Neurologic: Positive for seizures worked up nondiagnostic none in 6 years Integumentary: Negative for lesions, rash, and itching. Additional systems reviewed: No additional systems reviewed PHYSICAL EXAM BP 120/74 Pulse 68 Temp 98.2 Ht 5' 3 (1.60m) Wt 244 lb (110.7kg) SpO2 96% BMI 43.23 kg/(m2). Constitutional: Well developed and Obese HEENT: PERRLA Resp: Clear Cardiovascular: Regular rate AND rhythm GI: Soft, round Integumentary: Warm Musculoskeletal: No deformities Neurological/Psychiat caryn: Oriented to time, place AND person Additional systems reviewed: No additional systems reviewed DATA: Radiology: CCT: Intrathoracic stomach No abdominal wall hernia except a small umbilical hernia I have personally reviewed the following images/data: CT scan Outside Paper Medical Records Review personally performed by: Merlin Ardon MD SIGNATURE: Merlin Ardon MD PAGER: [phone] DATE of SERVICE: 07/07/2019 TIME of SERVICE: 9:59 AM ouside imaging uploaded to dicom disc returned to pt Normal [facility] CNOVon 06-24-2019 CNOV Office Visit ([facility] ) KIYA BHAT ([id number]) 1975 F Date Time Provider Department 06/24/19 2:20 PM LILIA KOEHLER JR [facility] During your visit today, we recorded the following information about you: Pulse Blood pressure Weight Height 80/minute 123/78 108.4 kg 1.594 m Lilia Koehler MD 06/24/2019 2:38 PM Signed CONSULTATION Ms. Bhat is here today at the request of Dory Ogden MD [address] [place] [id number] for my opinion regarding thoracic stomach. My final recommendation will be communicated back to the requesting physician by way of shared medical record or letter. This is a pleasant 44-year-old white female referred by an outside hospital for a hiatal hernia that has subsequent developed into an intrathoracic stomach. The patient reports mild shortness of breath as well as reports occasional abdominal pain. She denies any dysphagia or nausea or vomiting. CT scan at an outside hospital demonstrates a very small abdominal wall hernia as well as a large hiatal hernia with intrathoracic stomach. PAST MEDICAL HISTORY Diagnosis Date - NEGATIVE MEDICAL HISTORY No tb, dm, heart and ca PAST SURGICAL HISTORY Procedure Laterality Date - CHOLECYSTECTOMY 1996 - OTHER Right 2000 right knee scope - TUBAL LIGATION HX 1996 Social History Socioeconomic History Marital status: Single Spouse name: Not on file Number of children: Not on file Years of education: Not on file Highest education level: Not on file Occupational History Not on file Social Needs Financial resource strain: Not on file Food insecurity: Worry: Not on file Inability: Not on file Transportation needs: Medical: Not on file Non-medical: Not on file Tobacco Use Smoking status: Not on file Substance and Sexual Activity Alcohol use: Not on file Drug use: Not on file Sexual activity: Not on file Lifestyle Physical activity: Days per week: Not on file Minutes per session: Not on file Stress: Not on file Relationships Social connections: Talks on phone: Not on file Gets together: Not on file Attends jain service: Not on file Active member of club or organization: Not on file Attends meetings of clubs or organizations: Not on file Relationship status: Not on file Intimate partner violence: Fear of current or ex partner: Not on file Emotionally abused: Not on file Physically abused: Not on file Forced sexual activity: Not on file Other Topics Concerns: Not on file Social History Narrative Not on file No family history on file. REVIEW OF SYSTEMS GENERAL: No weight loss, malaise or fevers. HEENT: Negative for frequent or significant headaches, Negative for changes in hearing, vision or dizziness, Negative for nose bleeds, Negative for difficulty swallowing or hoarsness RESPIRATORY: Negative for cough, hemoptysis, wheezing or shortness of breath CARDIOVASCULAR: Negative for chest pain, leg swelling or palpitations. GI: No nausea, vomiting, diarrhea, constipation, hematochezia, melena, or abdominal pain : No history of dysuria, hematuria, frequency or incontinence. SKIN: Negative for lesions, rash, and itching NEURO: No history of headaches, syncope, paralysis, seizures or tremors PHYSICAL EXAMINATION BP 123/78 Pulse 80 Ht 159.4 cm (5' 2.75 ) Wt 108.4 kg (239 lb) BMI 42.67 kg/m? General Appearance: Well appearing, alert, in no acute distress, well-hydrated, well nourished. Skin: Color, texture, turgor normal, no suspicious rashes or lesions Head: Normocephalic, no masses, lesions, tenderness or abnormalities Neck: Supple, no adenopathy; thyroid symmetric, normal size, no bruits Lungs: Clear to auscultation. No wheezing, rhonchi, rales Heart: RRR without murmur, gallop, or rubs. No ectopy Abdomen: Soft, non-tender. Bowel sounds normal. No masses, organomegaly Extremities: No ankle edema. Assessment Intrathoracic stomach Plan: Recommended referral to thoracic surgery Department. The patient is been advised that this is a more complex procedure given the extent of the herniation into the chest. It may require a thoracotomy versus an open procedure and therefore should be performed by a thoracic surgeon. There is also an increased risk of additional complications including reexpansion pulmonary edema. Patient understands and is agreeable. Patient will be referred to the chest service. Lilia Koehler MD cc: Referring provider [place] [address] [place] [id number] Referring Provider: DORY OGDEN [[id number]] Allergies As of Date: 06/24/2019 (No Known Allergies) Date Reviewed: 06/24/2019 Reviewed by: Haven Vasquez Ma - Fully Assessed Reason for Visit: Consult [173] Cmt: new pt.referred by Dr. Jones for a HIatal Hernia for 4yrs. Reason For Visit History Recorded Primary Visit Diagnosis:Hiatal hernia [K44.9] Other Visit Diagnoses:Incisional hernia, without obstruction or gangrene [K43.2] Thoracic stomach [K44.9] Order(s):CONSULT TO THORACIC [[id number]] Order #: [id number]: 1 Prescriptions as of 06/24/2019 Sig: MULTIVITAMIN TABLET Take 1 tablet by mouth once d* DICLOFENAC SODIUM 75 MG TABLE* Take 1 tablet by mouth twice * OMEPRAZOLE 40 MG CAPSULE,LORI* Take 1 capsule by mouth twice* FERROUS SULFATE 325 MG (65 MG* Take 1 tablet by mouth twice * CHOLECALCIFEROL (VITAMIN D3) * Take 1 tablet by mouth once d* CALCIUM CARBONATE 500 MG (1,2* Take 1 tablet by mouth once d* IBUPROFEN 200 MG CAPSULE Take 1-2 capsules by mouth as* Problem List As Of Date: 06/24/2019 (None) Disposition: Return if symptoms worsen or fail to improve. Follow-up and Disposition History Recorded Letter Text Encounter Status:Closed by LILIA KOEHLER MD on 06/24/19 [facility] PROGRESSon 06-24-2019 PROGRESS HNO ID: [id number] Author: Lilia Koehler Jr. Service: ? Author Type: Physician Type: Progress Notes Filed: 06/24/2019 2:38 PM Note Text: CONSULTATION Ms. Bhat is here today at the request of Dory Ogden MD [address] [place] [id number] for my opinion regarding thoracic stomach. My final recommendation will be communicated back to the requesting physician by way of shared medical record or letter. This is a pleasant 44-year-old white female referred by an outside hospital for a hiatal hernia that has subsequent developed into an intrathoracic stomach. The patient reports mild shortness of breath as well as reports occasional abdominal pain. She denies any dysphagia or nausea or vomiting. CT scan at an outside hospital demonstrates a very small abdominal wall hernia as well as a large hiatal hernia with intrathoracic stomach. PAST MEDICAL HISTORY Diagnosis Date - NEGATIVE MEDICAL HISTORY No tb, dm, heart and ca PAST SURGICAL HISTORY Procedure Laterality Date - CHOLECYSTECTOMY 1996 - OTHER Right 2000 right knee scope - TUBAL LIGATION HX 1996 Social History Socioeconomic History Marital status: Single Spouse name: Not on file Number of children: Not on file Years of education: Not on file Highest education level: Not on file Occupational History Not on file Social Needs Financial resource strain: Not on file Food insecurity: Worry: Not on file Inability: Not on file Transportation needs: Medical: Not on file Non-medical: Not on file Tobacco Use Smoking status: Not on file Substance and Sexual Activity Alcohol use: Not on file Drug use: Not on file Sexual activity: Not on file Lifestyle Physical activity: Days per week: Not on file Minutes per session: Not on file Stress: Not on file Relationships Social connections: Talks on phone: Not on file Gets together: Not on file Attends jain service: Not on file Active member of club or organization: Not on file Attends meetings of clubs or organizations: Not on file Relationship status: Not on file Intimate partner violence: Fear of current or ex partner: Not on file Emotionally abused: Not on file Physically abused: Not on file Forced sexual activity: Not on file Other Topics Concerns: Not on file Social History Narrative Not on file No family history on file. REVIEW OF SYSTEMS GENERAL: No weight loss, malaise or fevers. HEENT: Negative for frequent or significant headaches, Negative for changes in hearing, vision or dizziness, Negative for nose bleeds, Negative for difficulty swallowing or hoarsness RESPIRATORY: Negative for cough, hemoptysis, wheezing or shortness of breath CARDIOVASCULAR: Negative for chest pain, leg swelling or palpitations. GI: No nausea, vomiting, diarrhea, constipation, hematochezia, melena, or abdominal pain : No history of dysuria, hematuria, frequency or incontinence. SKIN: Negative for lesions, rash, and itching NEURO: No history of headaches, syncope, paralysis, seizures or tremors PHYSICAL EXAMINATION BP 123/78 Pulse 80 Ht 159.4 cm (5' 2.75 ) Wt 108.4 kg (239 lb) BMI 42.67 kg/m? General Appearance: Well appearing, alert, in no acute distress, well-hydrated, well nourished. Skin: Color, texture, turgor normal, no suspicious rashes or lesions Head: Normocephalic, no masses, lesions, tenderness or abnormalities Neck: Supple, no adenopathy; thyroid symmetric, normal size, no bruits Lungs: Clear to auscultation. No wheezing, rhonchi, rales Heart: RRR without murmur, gallop, or rubs. No ectopy Abdomen: Soft, non-tender. Bowel sounds normal. No masses, organomegaly Extremities: No ankle edema. Assessment Intrathoracic stomach Plan: Recommended referral to thoracic surgery Department. The patient is been advised that this is a more complex procedure given the extent of the herniation into the chest. It may require a thoracotomy versus an open procedure and therefore should be performed by a thoracic surgeon. There is also an increased risk of additional complications including reexpansion pulmonary edema. Patient understands and is agreeable. Patient will be referred to the chest service. Lilia Koehler MD cc: Referring provider Dory Ogden MD [address] [place] [id number] Normal [facility] SR-CT ABD/PELVIS WO CON IMPO RTon 06-04-2019 SR-CT ABD/PELVIS WO CON IMPORT Images were obtained outside of [facility] [id number] N Normal [facility] [place] SINGLE QUAD LEROY IMPORTo n 05-30-2019 [place] SINGLE QUAD LEROY IMPORT Images were obtained outside of [facility] [id number] N Normal [facility] Test (Serum)on Test, Serum Negative Normal [facility] Comment on above: Performed By: #### 3 [id number] ####[facility] [address] [place] [address] CBC With Differentialon 04-28 Basophils Auto #/vol (Bld) 0.06 10*3/uL Normal 0.01-0.07 [facility] Comment on above: Performed By: #### 2 [id number] ####[facility] [address] [place] [address] Basophils/100 WBC Auto (Bld) 0.7 % Normal 0.1-1.2 [facility] Comment on above: Performed By: #### 2 [id number] ####[facility] [address] [place] [address] Eosinophils 0.51 10*3/uL High 0.04-0.50 [facility] are Comment on above: Performed By: #### 2 [id number] ####[facility] [address] [place] [address] Eosinophils/100 leukocytes 6.1 % Normal 0.0-8.1 [facility] Comment on above: Performed By: #### 2 [id number] ####[facility] [address] [place] [address] Erythrocyte distribution width Auto Ratio (RBC) 13.2 % Normal 12.0-15.4 [facility] Comment on above: Performed By: #### 2 [id number] ####[facility] [address] [place] [address] Erythrocytes (RBC) 4.67 10*6/uL Normal 3.85-5.10 [facility] Comment on above: Performed By: #### 2 344678 ####[facility] [address] [place] [address] Erythrocytes (RBC) 0.0 /100{WBCs} Normal [facility] Comment on above: Performed By: #### 2 [id number] ####[facility] [address] [place] [address] Erythrocytes (RBC) 0.00 10*3/uL Normal [facility] Comment on above: Performed By: #### 2 127119 ####[facility] [address] [place] [address] Hematocrit (HCT) 40.8 % Normal 36.5-46.6 [facility] thcare Comment on above: Performed By: #### 2 458140 ####[facility] [address] [place] [address] Hemoglobin mass conc (Bld) 13.6 g/dL Normal 11.8-15.3 [facility] Comment on above: Performed By: #### 2 337498 ####[facility] [address] [place] [address] Imm Grans Absolute 0.02 10*3/uL Normal 0.00-0.21 [facility] Comment on above: Performed By: #### 2 429497 ####[facility] [address] [place] [address] Immature granulocytes #/vol (Bld) 0.2 % Normal [facility] Comment on above: Performed By: #### 2 [id number] ####[facility] [address] [place] [address] Lymphocytes 2.15 10*3/uL Normal 0.40-2.84 [facility] Comment on above: Performed By: #### 2 508742 ####[facility] [address] [place] [address] Lymphocytes/100 leukocytes 25.8 % Normal 15.7-50.5 [facility] Comment on above: Performed By: #### 2 [id number] ####[facility] [address] [place] [address] MCH 29.1 pg Normal 27.5-33.0 [facility] Comment on above: Performed By: #### 2 683781 ####[facility] [address] [place] [address] MCHC mass conc (RBC) 33.3 g/dL Normal 30.1-35.0 [facility] Comment on above: Performed By: #### 2 347174 ####[facility] [address] [place] [address] MCV 87.4 fL Normal 85.4-100.0 [facility] Comment on above: Performed By: #### 2 604989 ####[facility] [address] [place] [address] Monocytes 0.57 10*3/uL Normal 0.25-0.83 [facility] Comment on above: Performed By: #### 2 266606 ####[facility] [address] [place] [address] Monocytes/100 leukocytes 6.9 % Normal 4.8-12.7 [facility] Comment on above: Performed By: #### 2 [id number] ####[facility] [address] [place] [address] Neutrophils 5.01 10*3/uL Normal 1.95-6.85 [facility] are Comment on above: Performed By: #### 2 534260 ####[facility] [address] [place] [address] Neutrophils/100 leukocytes 60.3 % Normal 36.8-73.2 [facility] Comment on above: Performed By: #### 2 473881 ####[facility] [address] [place] [address] Platelet mean volume (PMV) 12.0 fL Normal 9.9-12.1 [facility] Comment on above: Performed By: #### 2 [id number] ####[facility] [address] [place] [address] Platelets 207 10*3/uL Normal 155-404 [facility] Comment on above: Performed By: #### 2 059988 ####[facility] [address] [place] [address] RDW SD 42.2 fL Normal 39.3-48.6 [facility] Comment on above: Performed By: #### 2 609683 ####[facility] [address] [place] [address] WBC (Leukocytes) 8.3 10*3/uL Normal 4.4-9.9 [facility] Comment on above: Performed By: #### 2 017865 ####[facility] [address] [place] [address] Partial Thromboplastin Timeo n 05-10-2017 aPTT 28.4 s Normal 22.1-35.3 [facility] Comment on above: Result Comment: Luis allen note new Heparin Therapeutic range effective 02/14/17.Heparin Therapeutic Range: 71 - 97 sec Performed By: #### 3 [id number] ####[facility] [address] [place] [address] Prothrombin Timeon 7 INR Coag RelTime (PPP) 1.00 {INR} Normal 0.85-1.16 [facility] Comment on above: Result Comment: Coum vanesa Therapy:1.5 - 2.0 Low Intensity Therapy2.0 - 3.0 Moderate Intensity Therapy2.5 - 3.5 High (1) Intensity Therapy3.0 - 4.0 High (2) Intensity Therapy Performed By: #### 3 [id number] ####[facility] [address] [place] [address] Prothrombin time (PT) Coag time (PPP) 13.1 s Normal 11.3-14.5 [facility] are Comment on above: Performed By: #### 3 [id number] ####[facility] [address] [place] [address] Encounters Encounter Date Encounter Type Care Provider Facility Start: 05-12-2022 End: 05-12-[address] CABRERA JONES Facility:[facility] Start: 09-20-2021 End: 09-20-[address] CABRERA JONES Facility:[facility] Start: 09-15-2021 End: 09-16-[address] CABRERA JONES Facility:[facility] Start: 09-02-2021 End: 09-03-[address] CABRERA JONES Facility:[facility] Start: 08-24-2021 End: 08-24-[address] MARCIAL BOB Facility:[facility] Start: 05-16-2017 End: 05-16-2017 Ambulatory Tito VALLE Facility:[facility] Start: 05-10-2017 Ambulatory Tito VALLE Facility:[facility] Start: 05-09-2017 Ambulatory Tito VALLE [facility] Payers Date Payer Category Payer Unknown [id number] 2.16.84 [id number] 1973 Unknown [id number] 2.16.84 [id number] 1973 Unknown [id number] 2.16.84 [id number] 1973 Unknown [id number] 2.16.84 [id number] 1973 Unknown [id number] 2.16.84 [id number] 1959 Medicaid [id number] 1961 Unknown [id number] Medicare [id number] Clinical Note 03-01-2022 Note Date & Type Note Facility 03-01-2022 Note Chief Complaint consultation for sebaceous cyst HPI Staff 46 year old female presents on consultation from Dr. Jones for sebaceous cyst central mid back. Present greater than 1 year. Slight increase in size. Denies pain. Never opened or drained. Never been on antibiotics for this. History of Present Illness 46 yo female with h/o hypertriglyceridemia, GERD, bipolar d/o; anxiety/depression, referred for 1 yr h/o sebaceous cyst right lower back; no episodes of infection, no pain or drainage, slight increase in size; no h/o other cysts removed; on Diclofenac daily. Review of Systems PHQ Score Initial Depression Screen Score: 0 ROS - Provider Constitutional: no fever, no sweats, no weight loss. Eyes: no glasses, no blurred vision, no visual loss. ENMT: no dentures, no hoarseness, no swallowing difficulties, no hearing loss, no ear infection(s), no nose bleeds. Cardiovascular: normal blood pressure, no chest pain, regular heartbeat, no heart murmur. Respiratory: no shortness of breath, no cough, no asthma, no wheezing. Gastrointestinal: no nausea, no vomiting, no diarrhea, no constipation, no blood in stool, no change in bowel habits, no abdominal pain, no hepatitis. Genitourinary: no kidney stones, no urine infection, no dysuria. Musculoskeletal: no pain, no weakness. Skin: no changing moles, no rash, yes skin lumps. Neurologic: no seizures, no epilepsy, no headache. Psychiatric: no emotional or psychiatric problem. Heme/Lymph: no bleeding problems, no anemia, no blood clots, no transfusions. Allergy/Immunologic: no swollen lymph nodes/glands, no IV drug abuse. Other: Additional ROS info: Except as noted in the above Review of Systems and in the History of Present Illness, all other systems have been reviewed and are negative or noncontributory. Physical Exam Vitals & Measurements HR: 72(Peripheral) RR: 16 BP: 132/92 HT: 160.0 cm HT: 160.02 cm WT: 100.9 kg WT: 100.9 kg BMI: 39.4 HEENT: normal conjunctiva, sclera clear, no scleral icterus, EOM intact, PERRLA, oral mucosa moist without lesions. Neck: trachea midline, no mass, symmetric, no thyromegaly or nodules, no adenopathy Respiratory: lungs CTA, respirations non labored. Cardiovascular: regular rate and rhythm, no murmur, no pedal edema or varicosities. Lymphatic: no cervical adenopathy, Musculoskeletal: normal gait, digits and nails without infection, nodes, cyanosis, clubbing. Skin: no rashes, no lesions, no ulcers, 1 cm sebaceous cyst right lower back, nontender, no skin changes, no drainage Psychiatric/Neuro: oriented to time, place, person, judgement normal, affect appropriate for age, insight intact, no focal deficits. Tests: review of old records completed, Assessment/Plan 1. Sebaceous cyst (L72.3: Sebaceous cyst) small, asymptomatic; observation for now; if becomes symptomatic or enlarges, recommend excisional biopsy under local anesthesia; patient to call with problems/questions. Follow-up No qualifying data available Problem List/Past Medical History Ongoing Abdominal wall hernia Anxiety and depression Bipolar 1 disorder Bloody diarrhea BMI 39.0-39.9,adult Change in bowel habits Generalized abdominal pain GERD (gastroesophageal reflux disease) Hiatal hernia History of pancreatitis Hypertriglyceridemia LLQ abdominal pain Nephrolithiasis Nicotine abuse Sebaceous cyst Historical No qualifying data Procedure/Surgical History Colonoscopy normal (10/31/2017), Endoscopy (10/31/2017), Arthroscopy of knee, Bilateral tubal ligation, Cholecystectomy, Cystoscopy, Insertion of renal artery stent. Medications Diclofenac 75mg Tab-DR, 75 mg, Oral, BID ferrous sulfate 325 mg Tab, 325 mg= 1 tab(s), Oral, BID Pantoprazole [address] Tab, 40 mg= 1 tab(s), Oral, Daily Ventolin HFA 90 mcg/inh Aerosol, 2 puff(s), Inhalation, q4hr, PRN Vistaril 25 mg Cap, 25 mg= 1 cap(s), Oral, QID Zoloft 100 mg Tab, 200 mg= 2 tab(s), Oral, Daily Allergies No Known Allergies No Known Medication Allergies Social History Alcohol - Denies Alcohol Use, 06/17/2019 Substance Abuse - Denies Substance Abuse, 06/17/2019 Tobacco Former smoker, quit more than 30 days ago Tobacco Use:. Never Smokeless Tobacco Use:. Cigarettes, 1.5 per day. Started age 27.0 Years. Stopped age 45 Years., 03/01/2022 Family History Acute myocardial infarction: Mother. Diabetes mellitus type 2: Mother and Brother. Heart disease: Mother. [facility] Comment on above: Result Comment: Elec tronically Signed By: FRANK GALLO, Dory Moore\Date and Time Signed: 03/01/22 16:21 EDT Summary Purpose Family History No Family History Records FoundNo Family History Records FoundNo Family History Records FoundNo Family History Records Found Advance Directives No Advanced Directives Records FoundNo Advanced Directives Records FoundNo Advanced Directives Records FoundNo Advanced Directives Records Found Additional Source Comments INFORMATION SOURCE (unrecogn ized section and content) DATE CREATED AUTHOR 04/24/2018 [facility] DATE CREATED AUTHOR AUTHOR'S ORGANIZ ATION 01/01/2020 [facility] DATE CREATED AUTHOR AUTHOR'S ORGANIZ ATION 03/03/2022 Naif Sabillon [facility] DATE CREATED AUTHOR AUTHOR'S ORGANIZ ATION 05/18/2022 Edgar morales FOR RECORDS PERTAINING TO PATIENTS WHO ARE OR HAVE BEEN ENROLLED IN A CHEMICAL DEPENDENCY/SUBSTANCEABUSE PROGRAM, SOME INFORMATION MAY BE OMITTED. This clinical summary was aggregated from multiple sources. Caution should be exercised in using it in the provision of clinical care. This summary normalizes information from multiple sources, and as a consequence, information in this document may materially change the coding, format and clinical context of patient data. In addition, data may be omitted in some cases. CLINICAL DECISIONS SHOULD BE BASED ON THE PRIMARY CLINICAL RECORDS. [facility] Write[facility]. provides no warranty or guarantee of the accuracy or completeness of information in this document.
[2024-06-07 09:06] LABS: Basophils Absolute Auto 0.1 10^3/uL (0.0-0.1); Basophils Percent Auto 1.2 % (0.2-2.0); Eosinophils Absolute Auto 0.2 10^3/uL (0.0-0.7); Eosinophils Percent Auto 2.5 % (0.9-7.0); Hematocrit 44.7 % (36.0-48.0); Immature Granulocytes Abs Auto 0.02 10^3/uL (0.00-0.03); Immature Granulocytes Pct Auto 0.3 % (0.0-0.5); Lymphocytes Absolute Auto 2.1 10^3/uL (1.2-3.8); Lymphocytes Percent Auto 34.9 % (20.5-60.0); Mean Corpuscular HGB Conc 33.6 g/dL (29.9-35.2); Mean Corpuscular Hemoglobin 29.8 pg (26.7-34.0); Mean Corpuscular Volume 88.9 fL (81.0-99.0); Mean Platelet Volume 11.7 fL (9.5-13.5); Monocytes Absolute Auto 0.5 10^3/uL (0.3-0.8); Monocytes Percent Auto 8.2 % (1.7-12.0); Neutrophils Absolute Auto 3.2 10^3/uL (1.4-6.5); Neutrophils Percent Auto 52.9 % (43.0-75.0); Platelet Count 126 10^3/uL (150-450); Red Blood Count 5.03 10^6/uL (4.20-5.40); Red Cell Distribution Width 12.7 % (11.0-15.0)
[2024-06-07 09:24] LABS: Estimated Average Glucose 100 mg/dL; Glycohemoglobin A1C 5.1 % (4.5-6.2)
[2024-06-07 09:27] LABS: Alanine Aminotransferase 66 U/L (14-59); Albumin Globulin Ratio 1.3; Albumin Level 3.9 g/dL (3.4-5.0); Alkaline Phosphatase 49 U/L (46-116); Anion Gap 11.1; Aspartate Amino Transferase 32 U/L (15-37); BUN Creatinine Ratio 15.8; Bilirubin Total 0.7 mg/dL (0.2-1.0); Calcium 9.3 mg/dL (8.5-10.1); Carbon Dioxide 30.9 mmol/L (21.0-32.0); Chloride 103 mmol/L (98-107); Chol HDL Ratio 3.5; Cholesterol 180 mg/dL (<=200); Estimated GFR (African America >60 (>=60); Estimated GFR (Non-African Ame 58 (>=60); Glucose 97 mg/dL (74-106); HDL Cholesterol 52 mg/dL (40-60); LDL Cholesterol Calculated 103.4 mg/dL; Sodium 141 mmol/L (136-145); Thyroid Stimulating Hormone 1.413 uIU/mL (0.358-3.740); Total Protein 6.9 g/dL (6.4-8.2); Triglycerides 123 mg/dL (<=150); VLDL CHOLESTEROL 24.6 mg/dL
[2024-06-07 09:29] LABS: Free T4 1.41 ng/dL (0.76-1.46)
== END 2024-06-07 08:29 | disposition home or self-care (01) ==
PROVIDERS: PCP Family Medicine; Visit Provider Family Medicine
DX: Z00.00 Encounter for general adult medical examination without abnormal findings (principal); I10 Essential (primary) hypertension; E03.9 Hypothyroidism, unspecified; E78.5 Hyperlipidemia, unspecified; R73.09 Other abnormal glucose; R53.83 Other fatigue
CPT/HCPCS: 36415; 80053; 80061; 83036; 84439; 84443; 85025

== ENCOUNTER 2024-07-25 20:50 | Emergency (ER) | payer MEDICARE, MEDICAID, SELFPAY ==
[2024-07-25 20:54] VITALS: BP 163/105; PULSE 96; TEMP 36.8; O2SAT 97; BMI 39.0
--- OUTSIDE RECORDS SUMMARY | 2024-07-25 20:59 | XMS_ITS | CCD ---
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 When there are no FDA-approved or cleared tests available, and other criteria are met, FDA can make tests available under an emergency access mechanism called an Emergency Use Authorization (EUA). The EUA for this test is supported by the [employer] Value Added Assessor of Health and Human Service's (HHS's) declaration [...] #### C MP, BNP, TSH, HSTROPN #### [facility] [address] [place] [address] Dr. Emily Hercules Facesheeton 03-02-2022 Facesheet [id number] .[id number]:127 Normal [facility] Physician Referralon 022 Physician Referral [id number]. [id number]:127 Normal [facility] Covid-19 PCR (CVDTB)on 08-30 SARS-CoV-2 (COVID-19) RNA SUKHWINDER+probe Ql (Unsp spec) Not detected Normal NOT DETECTED [facility] Comment on above: Result Comment: This test is not yet approved or cleared by the [place] FDA. When there are no FDA-approved or cleared tests available, and other criteria are met, FDA can make tests available under an emergency access mechanism called an Emergency Use Authorization (EUA). The EUA for this test is supported by the [place] of Health and Human Service's (HHS's) declaration [...] consistent with SARS-CoV-2. Performed By: #### [facility] #### [facility] [address] [address] [address] Emily Hercules MG MAMM SCREEN 3D SHELLY CADon 09-15-2021 MG MAMM SCREEN 3D SHELLY CAD Patient: KIYA BHAT Exam Date: 09/15/2021 : 1975 Gender:F Ordering : DR CABRERA JONES . Admission #: [id number] Family : Order #: [id number] CLICK HERE TO VIEW EXAM RADIOLOGY REPORT PROCEDURE: MAMMOGRAM SCREENING 3D BILATERAL CAD COMPARISON: None. INDICATIONS: Screening mammography Calculator Name NCI Breast Cancer Risk Assessment Tool 5 Year Breast Cancer Risk 0.70% Lifetime Breast Cancer Risk 6.70% Personal Breast Cancer No Personal Ovarian Cancer No Treatments None Family Cancers Grandmother-maternal with leukemia cancer at age 38. LOCATION: [facility] BREAST COMPOSITION: Scattered areas fibroglandular density. FINDINGS: [...] Serna MD on 09/15/2021 at 11:59 Normal [facility] FSHon 09-03-2021 FSH 8.8 mIU/mL Normal [facility] Comment on above: Result Comment: Adul t Female: Follicular phase 3.5 - 12.5 Ovulation phase 4.7 - 21.5 Luteal phase 1.7 - 7.7 Postmenopausal 25.8 - 134.8 Performed By: #### L BCFSH #### [facility] [address] [place] [address] Dr. Emily Hercules INSULINon 09-03-2021 Insulin 19.4 uIU/mL Normal 2.6-24.9 [facility] Comment on above: Performed By: #### C MP, BNP, TSH, HSTROPN #### [facility] [address] [place] [address] Dr. Emily Hercules CBC AUTO DIFFon 09-02-2021 BASO # 0.1 103/ul Normal 0.0-0.1 [facility] Comment on above: Performed By: #### C BC #### [facility] [address] [place] [address] Dr. Emily Hercules Basophils/100 WBC (Bld) 0.7 % Normal 0.2-2.0 [facility] Comment on above: Performed By: #### C BC #### [facility] [address] [place] [address] Dr. Emily Hercules EO # 0.3 103/ul Normal 0.0-0.7 [facility] Comment on above: Performed By: #### C BC #### [facility] [address] [place] [address] Dr. Emily Hercules Eosinophils/100 WBC (Bld) 3.8 % Normal 0.9-7.0 [facility] Comment on above: Performed By: #### C BC #### [facility] [address] [place] [address] Dr. Emily Hercules Erythrocyte distribution width (RBC) [Ratio] 13.6 % Normal 11.0-15.0 [facility] Comment on above: Performed By: #### C BC #### [facility] [address] [place] [address] Dr. Emily Hercules Hematocrit (Bld) [Volume fraction] 42.6 % Normal 36.0-48.0 [facility] Comment on above: Performed By: #### C BC #### [facility] [address] [place] [address] Dr. Emily Hercules Hemoglobin (Bld) [Mass/Vol] 14.5 g/dL Normal 12.0-16.0 [facility] Comment on above: Performed By: #### C BC #### [facility] [address] [place] [address] Dr. Emily Hercules IG # 0.08 10e3/ul Critically high 0.00-0.03 [facility] Comment on above: Performed By: #### C BC #### [facility] [address] [place] [address] Dr. Emily Hercules IG % 1.0 % Critically high 0.0-0.5 [facility] Comment on above: Performed By: #### C BC #### [facility] [address] [place] [address] Dr. Emily Hercules LYMPH # 2.2 103/ul Normal 1.2-3.8 [facility] Comment on above: Performed By: #### C BC #### [facility] [address] [place] [address] Dr. Emily Hercules Lymphocytes/100 WBC (Bld) 27.4 % Normal 20.5-60.0 [facility] Comment on above: Performed By: #### C BC #### [facility] [address] [place] [address] Dr. Emily Hercules MANUAL DIFF REQ NO Normal [facility] Comment on above: Performed By: #### C BC #### [facility] [address] [place] [address] Dr. Emily Hercules MCH (RBC) [Entitic mass] 30.2 pg Normal 26.7-34.0 [facility] Comment on above: Performed By: #### C BC #### [facility] [address] [place] [address] Dr. Emily Hercules MCHC (RBC) [Mass/Vol] 34.0 g/dL Normal 29.9-35.2 [facility] Comment on above: Performed By: #### C BC #### [facility] [address] [place] [address] Dr. Emily Hercules MCV (RBC) [Entitic vol] 88.8 fL Normal 81.0-99.0 [facility] Comment on above: Performed By: #### C BC #### [facility] [address] [place] [address] Dr. Emily Hercules MONO # 0.5 103/ul Normal 0.3-0.8 [facility] Comment on above: Performed By: #### C BC #### [facility] [address] [place] [address] Dr. Emily Hercules Monocytes/100 WBC (Bld) 6.2 % Normal 1.7-12.0 [facility] Comment on above: Performed By: #### C BC #### [facility] [address] [place] [address] Dr. Emily Hercules NEUT # 4.9 103/ul Normal 1.4-6.5 [facility] Comment on above: Performed By: #### C BC #### [facility] [address] [place] [address] Dr. Emily Hercules Neutrophils/100 WBC (Bld) 60.9 % Normal 43.0-75.0 [facility] Comment on above: Performed By: #### C BC #### [facility] [address] [address] [address] Emily Hercules Platelet mean volume (Bld) [Entitic vol] 11.6 fL Normal 9.5-13.5 [facility] Comment on above: Performed By: #### C BC #### [facility] [address] [place] [address] Dr. Emily Hercules PLT 180 103/ul Normal 150-450 [facility] Comment on above: Performed By: #### C BC #### [facility] [address] [address] [address] Emily Hercules RBC 4.80 106/ul Normal 4.20-5.40 [facility] Comment on above: Performed By: #### C BC #### [facility] [address] [place] [address] Dr. Emily Hercules WBC 8.1 103/ul Normal 4.0-11.0 [facility] Comment on above: Performed By: #### C BC #### [facility] [address] [place] [address] Dr. Emily Hercules FREE THYROXINE INDEX T7on FTI 3.47 Normal [facility] Comment on above: Performed By: #### T 7, CMP, LIPID, TSH #### [facility] [address] [place] [address] Dr. Emily Hercules T3U 35.0 % Normal 23.5-40.5 [facility] Comment on above: Performed By: #### T 7, CMP, LIPID, TSH #### [facility] [address] [place] [address] Dr. Emily Hercules T4 [Mass/Vol] 9.90 ug/dL Normal 5.53-11.00 [facility] Comment on above: Performed By: #### T 7, CMP, LIPID, TSH #### [facility] [address] [place] [address] Dr. Emily Hercules GLYCOHEMOGLOBIN A1Con 2020 ADA RECOMMENDATION ADA THERAPEUTIC TARGET 6.0 - 7.0 ACTION SUGGESTED > 7.0 Normal [facility] Comment on above: Performed By: #### C MP, BNP, TSH, HSTROPN #### [facility] [address] [address] [address] Emily Hercules Glucose [Mass/Vol] 114 mg/dL Normal [facility] Comment on above: Performed By: #### C MP, BNP, TSH, HSTROPN #### [facility] [address] [address] [address] Emily Hercules HbA1c (Bld) [Mass fraction] 5.6 % Normal <=6.0 [facility] Comment on above: Performed By: #### C MP, BNP, TSH, HSTROPN #### [facility] [address] [address] [address] Emily Hercules IRONon 09-02-2021 Iron [Mass/Vol] 111.0 ug/dL Normal 37.0-170.0 [facility] Comment on above: Performed By: #### C MP, BNP, TSH, HSTROPN #### [facility] [address] [address] [address] Emily Hercules LIPID PROFILEon 09-02-2021 CHOL-HDL RATIO NORM SEE BELOW Normal [facility] Comment on above: Result Comment: 3.3 - 4.4 LOW RISK 4.4 - 7.1 AVERAGE RISK 7.1 - 11.0 MODERATE RISK >11.0 HIGH RISK Performed By: #### C MP, BNP, TSH, HSTROPN #### [facility] [address] [address] [address] Emily Hercules Cholesterol [Mass/Vol] 183 mg/dL Normal <=200 [facility] Comment on above: Performed By: #### C MP, BNP, TSH, HSTROPN #### [facility] [address] [address] [address] Emily Hercules Cholesterol in HDL [Mass/Vol] 43 mg/dL Normal [facility] Comment on above: Performed By: #### C MP, BNP, TSH, HSTROPN #### [facility] [address] [address] [address] Emily Hercules Cholesterol in LDL [Mass/Vol] 109.0 mg/dL Normal [facility] Comment on above: Performed By: #### C MP, BNP, TSH, HSTROPN #### [facility] [address] [address] [address] Emily Hercules Cholesterol.total/Ch olesterol in HDL [Mass ratio] 4.3 {ratio} Normal [facility] Comment on above: Performed By: #### C MP, BNP, TSH, HSTROPN #### [facility] [address] [address] [address] Emily Hercules HDL NORMAL > or = 60 mg/dl - LO W CARDIOVASCULAR RISK <40 mg/dl - HIGH CARDIOVASCULAR RISK Normal [facility] Comment on above: Performed By: #### C MP, BNP, TSH, HSTROPN #### [facility] [address] [place] [address] Dr. Emily Hercules LDL CALC NORMAL SEE BELOW Normal [facility] Comment on above: Result Comment: <100 mg/dl OPTIMAL 100 - 129 mg/dl NEAR OR ABOVE OPTIMAL 130 - 159 mg/dl BORDERLINE HIGH 160 - 189 mg/dl HIGH >190 mg/dl VERY HIGH Performed By: #### C MP, BNP, TSH, HSTROPN #### [facility] [address] [place] [address] Dr. Emily Hercules Triglyceride [Mass/Vol] 155 mg/dL Critically high <=150 [facility] Comment on above: Performed By: #### C MP, BNP, TSH, HSTROPN #### [facility] [address] [place] [address] Dr. Emily Hercules VLDL CALC 31.0 mg/dL Normal [facility] Comment on above: Performed By: #### C MP, BNP, TSH, HSTROPN #### [facility] [address] [address] [address] Emily Hercules PROF 14(COMP METB)on 021 Albumin [Mass/Vol] 3.8 g/dL Normal 3.5-5.0 [facility] Comment on above: Performed By: #### T 7, CMP, LIPID, TSH #### [facility] [address] [place], [place] [id number] Dr. Emily Hercules Albumin/Globulin [Mass ratio] 1.1 {ratio} Normal [facility] Comment on above: Performed By: #### T 7, CMP, LIPID, TSH #### [facility] [address] [place] [address] Dr. Emily Hercules ALP [Catalytic activity/Vol] 57 U/L Normal 38-126 [facility] Comment on above: Performed By: #### T 7, CMP, LIPID, TSH #### [facility] [address] [place] [address] Dr. Emily Hercules ALT [Catalytic activity/Vol] 57 U/L Critically high 9-52 [facility] Comment on above: Performed By: #### T 7, CMP, LIPID, TSH #### [facility] [address] [place] [address] Dr. Emily Hercules Anion gap [Moles/Vol] 11.7 mmol/L Normal [facility] Comment on above: Performed By: #### T 7, CMP, LIPID, TSH #### [facility] [address] [place] [address] Dr. Emily Hercules AST [Catalytic activity/Vol] 35 U/L Normal 14-36 [facility] Comment on above: Performed By: #### T 7, CMP, LIPID, TSH #### [facility] [address] [place] [address] Dr. Emily Hercules Bilirubin [Mass/Vol] 0.7 mg/dL Normal 0.2-1.3 [facility] Comment on above: Performed By: #### T 7, CMP, LIPID, TSH #### [facility] [address] [place] [address] Dr. Emily Hercules Calcium [Mass/Vol] 8.8 mg/dL Normal 8.4-10.2 [facility] Comment on above: Performed By: #### T 7, CMP, LIPID, TSH #### [facility] [address] [place] [address] Dr. Emily Hercules Chloride [Moles/Vol] 105 mmol/L Normal 98-107 [facility] Comment on above: Performed By: #### T 7, CMP, LIPID, TSH #### [facility] [address] [address] [address] Emily Hercules CO2 [Moles/Vol] 26.1 mmol/L Normal 22.0-30.0 [facility] Comment on above: Performed By: #### T 7, CMP, LIPID, TSH #### [facility] [address] [address] [address] Emily Hercules Creatinine [Mass/Vol] 1.34 mg/dL Critically high 0.52-1.04 [facility] Comment on above: Performed By: #### T 7, CMP, LIPID, TSH #### [facility] [address] [place] [address] Dr. Emily Hercules EGFR-AF GERMAN 51 mL/min/1.73m2 Critically low >=60 [facility] Comment on above: Performed By: #### T 7, CMP, LIPID, TSH #### [facility] [address] [place] [address] Dr. Emily Hercules EGFR-NON AF GERMAN 42 mL/min/1.73m2 Critically low >=60 [facility] Comment on above: Performed By: #### T 7, CMP, LIPID, TSH #### [facility] [address] [place] [address] Dr. Emily Hercules Globulin (S) [Mass/Vol] 3.4 g/dL Normal [facility] Comment on above: Performed By: #### T 7, CMP, LIPID, TSH #### [facility] [address] [place] [address] Dr. Emily Hercules Glucose [Mass/Vol] 92 mg/dL Normal 74-106 [facility] Comment on above: Performed By: #### T 7, CMP, LIPID, TSH #### [facility] [address] [place] [address] Dr. Emily Hercules Potassium [Moles/Vol] 3.8 mmol/L Normal 3.4-5.0 [facility] Comment on above: Performed By: #### T 7, CMP, LIPID, TSH #### [facility] [address] [place] [address] Dr. Emily Hercules Protein [Mass/Vol] 7.2 g/dL Normal 6.1-8.2 [facility] Comment on above: Performed By: #### T 7, CMP, LIPID, TSH #### [facility] [address] [place] [address] Dr. Emily Hercules Sodium [Moles/Vol] 139 mmol/L Normal 137-145 [facility] Comment on above: Performed By: #### T 7, CMP, LIPID, TSH #### [facility] [address] [place] [address] Dr. Emily Hercules Urea nitrogen [Mass/Vol] 21.0 mg/dL Critically high 7.0-17.0 [facility] Comment on above: Performed By: #### T 7, CMP, LIPID, TSH #### [facility] [address] [place] [address] Dr. Emily Hercules Urea nitrogen/Creatinine [Mass ratio] 15.7 mg/mg Normal [facility] Comment on above: Performed By: #### T 7, CMP, LIPID, TSH #### [facility] [address] [place] [address] Dr. Emily Hercules TSHon 09-02-2021 TSH 1.130 uIU/mL Normal 0.470-4.680 [facility] Comment on above: Performed By: #### T 7, CMP, LIPID, TSH #### [facility] [address] [place] [address] Dr. Emily Hercules TSH RANGE SEE BELOW Normal [facility] Comment on above: Result Comment: <0.3 4 UIU/ml HYPERTHYROID 0.34-5.60 UIU/ml EUTHYROID >5.60 UIU/ml HYPOTHYROID Performed By: #### T 7, CMP, LIPID, TSH #### [facility] [address] [place] [address] Dr. Emily Hercules BNPon 08-24-2021 Natriuretic peptide B (Bld) [Mass/Vol] 98.0 pg/mL Normal <=450.0 [facility] Comment on above: Performed By: #### C MP, BNP, TSH, HSTROPN #### [facility] [address] [place] [address] Dr. Emily Hercules CBC AUTO DIFFon 08-24-2021 BASO # 0.0 103/ul Normal 0.0-0.1 [facility] Comment on above: Performed By: #### C MP, BNP, TSH, HSTROPN #### [facility] [address] [place] [address] Dr. Emily Hercules Basophils/100 WBC (Bld) 0.6 % Normal 0.2-2.0 [facility] Comment on above: Performed By: #### C MP, BNP, TSH, HSTROPN #### [facility] [address] [place] [address] Dr. Emily Hercules EO # 0.3 103/ul Normal 0.0-0.7 [facility] Comment on above: Performed By: #### C MP, BNP, TSH, HSTROPN #### [facility] [address] [place] [address] Dr. Emily Hercules Eosinophils/100 WBC (Bld) 4.1 % Normal 0.9-7.0 [facility] Comment on above: Performed By: #### C MP, BNP, TSH, HSTROPN #### [facility] [address] [place] [address] Dr. Emily Hercules Erythrocyte distribution width (RBC) [Ratio] 13.6 % Normal 11.0-15.0 [facility] Comment on above: Performed By: #### C MP, BNP, TSH, HSTROPN #### [facility] [address] [place] [address] Dr. Emily Hercules Hematocrit (Bld) [Volume fraction] 39.4 % Normal 36.0-48.0 [facility] Comment on above: Performed By: #### C MP, BNP, TSH, HSTROPN #### [facility] [address] [place] [address] Dr. Emily Hercules Hemoglobin (Bld) [Mass/Vol] 13.4 g/dL Normal 12.0-16.0 [facility] Comment on above: Performed By: #### C MP, BNP, TSH, HSTROPN #### [facility] [address] [place] [address] Dr. Emily Hercules IG # 0.02 10e3/ul Normal 0.00-0.03 [facility] Comment on above: Performed By: #### C MP, BNP, TSH, HSTROPN #### [facility] [address] [place] [address] Dr. Emily Hercules IG % 0.3 % Normal 0.0-0.5 [facility] Comment on above: Performed By: #### C MP, BNP, TSH, HSTROPN #### [facility] [address] [place] [address] Dr. Emily Hercules LYMPH # 1.8 103/ul Normal 1.2-3.8 [facility] Comment on above: Performed By: #### C MP, BNP, TSH, HSTROPN #### [facility] [address] [place] [address] Dr. Emily Hercules Lymphocytes/100 WBC (Bld) 25.9 % Normal 20.5-60.0 [facility] Comment on above: Performed By: #### C MP, BNP, TSH, HSTROPN #### [facility] [address] [place] [address] Dr. Emily Hercules MANUAL DIFF REQ NO Normal [facility] Comment on above: Performed By: #### C MP, BNP, TSH, HSTROPN #### [facility] [address] [place] [address] Dr. Emily Hercules MCH (RBC) [Entitic mass] 29.9 pg Normal 26.7-34.0 [facility] Comment on above: Performed By: #### C MP, BNP, TSH, HSTROPN #### [facility] [address] [place] [address] Dr. Emily Hercules MCHC (RBC) [Mass/Vol] 34.0 g/dL Normal 29.9-35.2 [facility] Comment on above: Performed By: #### C MP, BNP, TSH, HSTROPN #### [facility] [address] [place] [address] Dr. Emily Hercules MCV (RBC) [Entitic vol] 87.9 fL Normal 81.0-99.0 [facility] Comment on above: Performed By: #### C MP, BNP, TSH, HSTROPN #### [facility] [address] [place] [address] Dr. Emily Hercules MONO # 0.4 103/ul Normal 0.3-0.8 [facility] Comment on above: Performed By: #### C MP, BNP, TSH, HSTROPN #### [facility] [address] [place] [address] Dr. Emily Hercules Monocytes/100 WBC (Bld) 5.8 % Normal 1.7-12.0 [facility] Comment on above: Performed By: #### C MP, BNP, TSH, HSTROPN #### [facility] [address] [place] [address] Dr. Emily Hercules NEUT # 4.4 103/ul Normal 1.4-6.5 [facility] Comment on above: Performed By: #### C MP, BNP, TSH, HSTROPN #### [facility] [address] [place] [address] Dr. Emily Hercules Neutrophils/100 WBC (Bld) 63.3 % Normal 43.0-75.0 [facility] Comment on above: Performed By: #### C MP, BNP, TSH, HSTROPN #### [facility] [address] [place] [address] Dr. Emily Hercules Platelet mean volume (Bld) [Entitic vol] 11.7 fL Normal 9.5-13.5 [facility] Comment on above: Performed By: #### C MP, BNP, TSH, HSTROPN #### [facility] [address] [place] [address] Dr. Emily Hercules PLT 122 103/ul Critically low 150-450 [facility] Comment on above: Performed By: #### C MP, BNP, TSH, HSTROPN #### [facility] [address] [place], [place] [address] Dr. Emily Hercules RBC 4.48 106/ul Normal 4.20-5.40 [facility] Comment on above: Performed By: #### C MP, BNP, TSH, HSTROPN #### [facility] [address] [place], [place] [address] Dr. Emily Hercules WBC 6.9 103/ul Normal 4.0-11.0 [facility] Comment on above: Performed By: #### C MP, BNP, TSH, HSTROPN #### [facility] [address] [place], [place] [address] Dr. Emily Hercules CTA CHEST WO W [...] NATY BALDERRAMA Date: 2021-08-24 17:14 Normal [facility] Covid-19 PCR (CVDTBH)on 07-30 SARS-CoV-2 (COVID-19) RNA SUKHWINDER+probe Ql (Unsp spec) Not detected Normal NOT DETECTED [facility] Comment on above: Result Comment: This test is not yet approved or cleared by the [place] FDA. When there are no FDA-approved or cleared tests available, and other criteria are met, FDA can make tests available under an emergency access mechanism called an Emergency Use Authorization (EUA). The EUA for this test is supported by the [place] of Health and Human Service's (HHS's) declaration [...] #### C MP, BNP, TSH, HSTROPN #### [facility] [address] [address] [address] Emily Hercules LACTATE/LACTIC ACIDon 2020 Lactate [Moles/Vol] 0.5 mmol/L Critically low 0.7-2.0 [facility] Comment on above: Performed By: #### C MP, BNP, TSH, HSTROPN #### [facility] [address] [address] [address] Emily Hercules PROF 14(COMP METB)on 021 Albumin [Mass/Vol] 3.7 g/dL Normal 3.5-5.0 [facility] Comment on above: Performed By: #### C MP, BNP, TSH, HSTROPN #### [facility] [address] [place] [address] Dr. Emily Hercules Albumin/Globulin [Mass ratio] 1.0 {ratio} Normal [facility] Comment on above: Performed By: #### C MP, BNP, TSH, HSTROPN #### [facility] [address] [place] [address] Dr. Emily Hercules ALP [Catalytic activity/Vol] 63 U/L Normal 38-126 [facility] Comment on above: Performed By: #### C MP, BNP, TSH, HSTROPN #### [facility] [address] [place] [address] Dr. Emily Hercules ALT [Catalytic activity/Vol] 66 U/L Critically high 9-52 [facility] Comment on above: Performed By: #### C MP, BNP, TSH, HSTROPN #### [facility] [address] [place] [address] Dr. Emily Hercules Anion gap [Moles/Vol] 12.3 mmol/L Normal [facility] Comment on above: Performed By: #### C MP, BNP, TSH, HSTROPN #### [facility] [address] [place] [address] Dr. Emily Hercules AST [Catalytic activity/Vol] 48 U/L Critically high 14-36 [facility] Comment on above: Performed By: #### C MP, BNP, TSH, HSTROPN #### [facility] [address] [place] [address] Dr. Emily Hercules Bilirubin [Mass/Vol] 0.6 mg/dL Normal 0.2-1.3 [facility] Comment on above: Performed By: #### C MP, BNP, TSH, HSTROPN #### [facility] [address] [place] [address] Dr. Emily Hercules Calcium [Mass/Vol] 9.2 mg/dL Normal 8.4-10.2 [facility] Comment on above: Performed By: #### C MP, BNP, TSH, HSTROPN #### [facility] [address] [place] [address] Dr. Emily Hercules Chloride [Moles/Vol] 103 mmol/L Normal 98-107 [facility] Comment on above: Performed By: #### C MP, BNP, TSH, HSTROPN #### [facility] [address] [address] [address] Emily Hercules CO2 [Moles/Vol] 25.2 mmol/L Normal 22.0-30.0 [facility] Comment on above: Performed By: #### C MP, BNP, TSH, HSTROPN #### [facility] [address] [place] [address] Dr. Emily Hercules Creatinine [Mass/Vol] 1.49 mg/dL Critically high 0.52-1.04 [facility] Comment on above: Performed By: #### C MP, BNP, TSH, HSTROPN #### [facility] [address] [place] [address] Dr. Emily Hercules EGFR-AF GERMAN 45 mL/min/1.73m2 Critically low >=60 [facility] Comment on above: Performed By: #### C MP, BNP, TSH, HSTROPN #### [facility] [address] [place] [address] Dr. Emily Hercules EGFR-NON AF GERMAN 37 mL/min/1.73m2 Critically low >=60 [facility] Comment on above: Performed By: #### C MP, BNP, TSH, HSTROPN #### [facility] [address] [place] [address] Dr. Emily Hercules Globulin (S) [Mass/Vol] 3.6 g/dL Normal [facility] Comment on above: Performed By: #### C MP, BNP, TSH, HSTROPN #### [facility] [address] [place] [address] Dr. Emily Hercules Glucose [Mass/Vol] 100 mg/dL Normal 74-106 [facility] Comment on above: Performed By: #### C MP, BNP, TSH, HSTROPN #### [facility] [address] [address] [address] Emily Hercules Potassium [Moles/Vol] 4.5 mmol/L Normal 3.4-5.0 [facility] Comment on above: Performed By: #### C MP, BNP, TSH, HSTROPN #### [facility] [address] [place] [address] Dr. Emily Hercules Protein [Mass/Vol] 7.3 g/dL Normal 6.1-8.2 [facility] Comment on above: Performed By: #### C MP, BNP, TSH, HSTROPN #### [facility] [address] [address] [address] Emily Hercules Sodium [Moles/Vol] 136 mmol/L Critically low 137-145 [facility] Comment on above: Performed By: #### C MP, BNP, TSH, HSTROPN #### [facility] [address] [address] [address] Emily Hercules Urea nitrogen [Mass/Vol] 22.0 mg/dL Critically high 7.0-17.0 [facility] Comment on above: Performed By: #### C MP, BNP, TSH, HSTROPN #### [facility] [address] [address] [address] Emily Hercules Urea nitrogen/Creatinine [Mass ratio] 14.8 mg/mg Normal [facility] Comment on above: Performed By: #### C MP, BNP, TSH, HSTROPN #### [facility] [address] [place] [address] Dr. Emily Hercules PROTIMEon 08-24-2021 INR Coag (PPP) [Relative time] 1.08 {INR} Normal [facility] Comment on above: Performed By: #### C MP, BNP, TSH, HSTROPN #### [facility] [address] [place] [address] Dr. Emily Hercules INR GUIDELINES SEE BELOW Normal [facility] Comment on above: Result Comment: GUILLERMO RED INR: 2.0 - 3.0 CONDITIONS NOT LISTED BELOW 2.5 - 3.5 FOR PROSTHETIC HEART VALVE REPLACEMENT 2.5 - 3.5 RECURRENT THROMBOSIS Performed By: #### C MP, BNP, TSH, HSTROPN #### [facility] [address] [place] [address] Dr. Emily Hercules PT Coag (PPP) [Time] 11.6 s Normal 9.0-11.6 [facility] Comment on above: Performed By: #### C MP, BNP, TSH, HSTROPN #### [facility] [address] [place] [address] Dr. Emily Hercules PTTon 08-24-2021 aPTT Coag (Bld) [Time] 29.6 s Normal 22.3-36.2 [facility] Comment on above: Performed By: #### C MP, BNP, TSH, HSTROPN #### [facility] [address] [place] [address] Dr. Emily Hercules TROPONIN, HIGH SENSITIVITYon 08-24-2021 HSTROP 4.9 pg/mL Normal 4.0-35.5 [facility] Comment on above: Result Comment: CUT- OFF POINTS HAVE BEEN ESTABLISHED BASED ON THE FOURTH UNIVERSAL DEFINITIONS OF MYOCARDIAL INFARCTION. THE UPPER REFERENCE LIMIT (URL) OF TROPONIN, DEFINED THE 99TH PERCENTILE OF cTnI DISTRIBUTION IN A REFERENCE POPULATION, HAS BEEN CONFIRMED THE DECISION THRESHOLD FOR WI DIAGNOSIS. Performed By: #### C MP, BNP, TSH, HSTROPN #### [facility] [address] [place] [address] Dr. Emily Hercules HSTROP 7.0 pg/mL Normal 4.0-35.5 [facility] Comment on above: Result Comment: CUT- OFF POINTS HAVE BEEN ESTABLISHED BASED ON THE FOURTH UNIVERSAL DEFINITIONS OF MYOCARDIAL INFARCTION. THE UPPER REFERENCE LIMIT (URL) OF TROPONIN, DEFINED THE 99TH PERCENTILE OF cTnI DISTRIBUTION IN A REFERENCE POPULATION, HAS BEEN CONFIRMED THE DECISION THRESHOLD FOR [place] DIAGNOSIS. Performed By: #### C MP, BNP, TSH, HSTROPN #### [facility] [address] [place] [address] Dr. Emily Hercules TSHon 08-24-2021 TSH 1.614 uIU/mL Normal 0.470-4.680 [facility] Comment on above: Performed By: #### C MP, BNP, TSH, HSTROPN #### [facility] [address] [place], [place] [address] Dr. Emily Hercules TSH RANGE SEE BELOW Normal [facility] Comment on above: Result Comment: <0.3 4 UIU/ml HYPERTHYROID 0.34-5.60 UIU/ml EUTHYROID >5.60 UIU/ml HYPOTHYROID Performed By: #### C MP, BNP, TSH, HSTROPN #### [facility] [address] [place], [place] [address] Dr. Emily Hercules US KARINE DOP LEG [...] by: MARCIAL BOB Date: 2021-08-24 16:22 Normal [facility] PROGRESSon 01-01-2020 PROGRESS HNO ID: [id number] Author: Jane (Phd) Bo Service: ? Author Type: Psychologist Type: Progress Notes Filed: 01/01/2020 8:43 AM Note Text: Received medical records from [facility] dated 2018- present. No records from [...] psychology evaluation. Jane Soriano, Ph.D. Psychologist Normal [facility] PROGRESSon 11-18-2019 PROGRESS HNO ID: [id number] Author: Jane (Phd) Bo Service: ? Author Type: Psychologist Type: Progress Notes Filed: 11/18/2019 12:04 PM Note Text: Received a one-line letter from [employer] [facility] stating patient does not have uncontrolled bipolar disorder. Message sent to navigator requesting past 24 months of mental health records for further review. Jane Soriano, Ph.D. Psychologist [facility] PROGRESSon 10-09-2019 PROGRESS HNO ID: [id number] Author: Merlin Ardon Service: ? Author Type: [...] REYGB. P: RTC prn. Merlin Ardon MD [facility] CNOVon 10-08-2019 CNOV Office Visit (KATE ) KIYA BHAT ([id number]) 1975 F Date Time Provider Department 10/08/19 [...] Merlin Ardon MD Referring Provider: MERLIN ARDON [[id number]] Allergies As of Date: 10/08/2019 (No Known [...] 10/08/2019 (None) Disposition: Return for RETURN TO [facility] NEEDED. Follow-up and Disposition History Recorded Encounter Status:Closed by MERLIN ARDON MD on 10/09/19 [facility] PROGRESSon 10-06-2019 PROGRESS HNO ID: [id number] Author: Darnell (Rn) HAWK Cornelius Service: ? [...] notes for risk assessment. Darnell Cornelius RN [facility] PROGRESSon 07-08-2019 PROGRESS HNO ID: [id number] Author: Merlin Ardon Service: ? Author Type: Physician Type: Progress Notes Filed: 07/08/2019 10:02 PM Note Text: I have read and reviewed the documentation and agree. I wish to add the followingI wish to add the following findings which will be communicated back to the requesting physician. Merlin Ardon MD [facility] CNOVon 07-07-2019 CNOV Office Visit (THORMN ) KIYA BHAT ([id number]) 1975 F Date Time Provider Department 07/07/19 9:30 AM MERLIN ARDON During your visit today, we recorded the following information about you: Temperature Pulse Blood pressure Weight 98.2 degrees 68/minute 120/74 110.7 kg Height 1.6 m Merlin Ardon MD 07/08/2019 10:02 PM Signed [facility] TH[facility] SURGERY OUTPATIENT CONSULT NOTE Kiya Bhat [id number] Requesting Provider: Dr. Koehler Thoracic Physician: Merlin [...] Take 1 tablet by mouth once daily. bjcfpfd-bwwycldwj-ezu dunaway D3 (CALCIUM 500+D) 500 mg(1,250mg) -200 [...] Ardon MD SIGNATURE: Merlin Ardon MD PAGER: [phone] DATE of SERVICE: 07/07/2019 TIME of SERVICE: [...] Ardon MD Referring Provider: LILIA KOEHLER JR [[id number]] Allergies As of Date: 07/07/2019 (No Known Allergies) Date Reviewed: 07/07/2019 Reviewed by: Darya Tony - Fully Assessed Primary Visit Diagnosis:Diaphragmat ic hernia without obstruction and without gangrene [K44.9] Order(s):CONSULT [facility] [[id number]] Order #: [id number]: 1 Prescriptions as of 07/07/2019 Sig: MULTIVITAMIN [...] by MERLIN ARDON MD on 07/08/19 Normal [facility] PROGRESSon 07-07-2019 PROGRESS HNO ID: [id number] Author: Merlin Ardon Service: ? Author Type: Physician Type: Progress Notes Filed: 07/08/2019 10:02 PM Note Text: [facility] OUTPATIENT CONSULT NOTE Kiya Bhat [id number] Requesting Provider: Dr. Koehler Thoracic Physician: Merlin [...] Take 1 tablet by mouth once daily. zrvgsol-vgklcubau-nox dunaway D3 (CALCIUM 500+D) 500 mg(1,250mg) -200 [...] Ardon MD SIGNATURE: Merlin Ardon MD PAGER: [phone] DATE of SERVICE: 07/07/2019 TIME of SERVICE: 9:59 AM ouside imaging uploaded to dicom disc returned to pt Normal [facility] CNOVon 06-24-2019 CNOV Office Visit (GENSCC ) KIYA BHAT ([id number]) 1975 F Date Time Provider Department 06/24/19 2:20 PM LILIA KOEHLER JR [facility] During your visit today, we recorded the following information about you: Pulse Blood pressure Weight Height 80/minute 123/78 108.4 kg 1.594 m Lilia Koehler MD 06/24/2019 2:38 PM Signed CONSULTATION Ms. Bhat is here today at the request of Dory Ogden MD [address] [place] [address] for my opinion regarding thoracic stomach. My [...] file Gets together: Not on file Attends anabaptist service: Not on file Active member of [...] provider [place] [address] Referring Provider: DORY OGDEN [[id number]] Allergies As of Date: 06/24/2019 (No Known Allergies) Date Reviewed: 06/24/2019 Reviewed by: Haven Vasquez Ma - Fully Assessed Reason for Visit: Consult [173] Cmt: new pt.referred by Dr. Jones for a HIatal Hernia for 4yrs. Reason For Visit History Recorded Primary Visit Diagnosis:Hiatal hernia [K44.9] Other Visit Diagnoses:Incisional hernia, without obstruction or gangrene [K43.2] Thoracic stomach [K44.9] Order(s):CONSULT TO THORACIC [[id number]] Order #: [id number]: 1 Prescriptions as of 06/24/2019 Sig: MULTIVITAMIN [...] Status:Closed by LILIA KOEHLER MD on 06/24/19 [facility] PROGRESSon 06-24-2019 PROGRESS HNO ID: [id number] Author: Lilia Koehler Jr. Service: ? Author Type: Physician Type: Progress Notes Filed: 06/24/2019 2:38 PM Note Text: CONSULTATION Ms. Bhat is here today at the request of Dory Ogden MD [address] [place] [address] for my opinion regarding thoracic stomach. My [...] file Gets together: Not on file Attends anabaptist service: Not on file Active member of [...] Dory Ogden MD [address] [place] [address] Normal [facility] SR-CT ABD/PELVIS WO CON IMPO RTon 06-04-2019 SR-CT ABD/PELVIS WO CON IMPORT Images were obtained outside of [facility] [id number] N Normal [facility] CO-US SINGLE QUAD LEROY IMPORTo n 05-30-2019 CO-US SINGLE QUAD LEROY IMPORT Images were obtained outside of [facility] [id number] Normal [facility] Test (Serum)on Test, Serum Negative Normal [facility] Comment on above: Performed By: #### 3 [id number] ####[facility] [address] [place] [address] CBC With Differentialon 04-28 Basophils Auto #/vol (Bld) 0.06 10*3/uL Normal 0.01-0.07 [facility] Comment on above: Performed By: #### 2 [id number] ####[facility] [address] [place] [address] Basophils/100 WBC Auto (Bld) 0.7 % Normal 0.1-1.2 [facility] Comment on above: Performed By: #### 2 [id number] ####[facility] [address] [place] [address] Eosinophils 0.51 10*3/uL High 0.04-0.50 [facility] are Comment on above: Performed By: #### 2 [id number] ####[facility] [address] [place] [address] Eosinophils/100 leukocytes 6.1 % Normal 0.0-8.1 [facility] Comment on above: Performed By: #### 2 834303 ####[facility] [address] [place] [address] Erythrocyte distribution width Auto Ratio (RBC) 13.2 % Normal 12.0-15.4 [facility] Comment on above: Performed By: #### 2 [id number] ####[facility] [address] [facility] [place] [address] Erythrocytes (RBC) 4.67 10*6/uL Normal 3.85-5.10 [facility] Comment on above: Performed By: #### 2 291375 ####[facility] [address] [place] [address] Erythrocytes (RBC) 0.0 /100{WBCs} Normal [facility] Comment on above: Performed By: #### 2 [id number] ####[facility] [address] [place] [address] Erythrocytes (RBC) 0.00 10*3/uL Normal [facility] Comment on above: Performed By: #### 2 868654 ####[facility] [address] [facility] [place] [address] Hematocrit (HCT) 40.8 % Normal 36.5-46.6 [facility]care Comment on above: Performed By: #### 2 845451 ####[facility] [address] [place] [address] Hemoglobin mass conc (Bld) 13.6 g/dL Normal 11.8-15.3 [facility] Comment on above: Performed By: #### 2 875607 ####[facility] [address] [facility] [place] [address] Imm Grans Absolute 0.02 10*3/uL Normal 0.00-0.21 [facility] Comment on above: Performed By: #### 2 526229 ####[facility] [address] [place] [address] Immature granulocytes #/vol (Bld) 0.2 % Normal [facility] Comment on above: Performed By: #### 2 113286 ####[facility] [address] [place] [address] Lymphocytes 2.15 10*3/uL Normal 0.40-2.84 [facility] Comment on above: Performed By: #### 2 162736 ####[facility] [address] [place] [address] Lymphocytes/100 leukocytes 25.8 % Normal 15.7-50.5 [facility] Comment on above: Performed By: #### 2 524553 ####[facility] [address] [place] [address] MCH 29.1 pg Normal 27.5-33.0 [facility] Comment on above: Performed By: #### 2 133068 ####[facility] [address] [place] [address] MCHC mass conc (RBC) 33.3 g/dL Normal 30.1-35.0 [facility] Comment on above: Performed By: #### 2 387867 ####[facility] [address] [facility] [address] MCV 87.4 fL Normal 85.4-100.0 [facility] Comment on above: Performed By: #### 2 518493 ####[facility] [address] [facility] [place] [address] Monocytes 0.57 10*3/uL Normal 0.25-0.83 [facility] Comment on above: Performed By: #### 2 448154 ####[facility] [address] [facility] [place] [address] Monocytes/100 leukocytes 6.9 % Normal 4.8-12.7 [facility] Comment on above: Performed By: #### 2 844282 ####[facility] [address] [facility] [place] [address] Neutrophils 5.01 10*3/uL Normal 1.95-6.85 [facility] are Comment on above: Performed By: #### 2 124399 ####[facility] [address] [place] [address] Neutrophils/100 leukocytes 60.3 % Normal 36.8-73.2 [facility] Comment on above: Performed By: #### 2 766344 ####[facility] [address] [place] [address] Platelet mean volume (PMV) 12.0 fL Normal 9.9-12.1 [facility] Comment on above: Performed By: #### 2 188422 ####[facility] [address] [facility] [place] [address] Platelets 207 10*3/uL Normal 155-404 [facility] Comment on above: Performed By: #### 2 577590 ####[facility] [address] [facility] [place] [address] RDW SD 42.2 fL Normal 39.3-48.6 [facility] Comment on above: Performed By: #### 2 603732 ####[facility] [address] [facility] [place] [address] WBC (Leukocytes) 8.3 10*3/uL Normal 4.4-9.9 [facility] Comment on above: Performed By: #### 2 338594 ####[facility] [address] [facility] [place] [address] Partial Thromboplastin Timeo n 05-10-2017 aPTT 28.4 s Normal 22.1-35.3 [facility] Comment on above: Result Comment: Luis allen note new Heparin Therapeutic range effective 02/14/17.Heparin Therapeutic Range: 71 - 97 sec Performed By: #### 3 112192 ####[facility] [address] [facility] [place] [address] Prothrombin Timeon 7 INR Coag RelTime (PPP) 1.00 {INR} Normal 0.85-1.16 [facility] Comment on above: Result Comment: Coum vanesa Therapy:1.5 - 2.0 Low Intensity Therapy2.0 - 3.0 Moderate Intensity Therapy2.5 - 3.5 High (1) Intensity Therapy3.0 - 4.0 High (2) Intensity Therapy Performed By: #### 3 [id number] ####[facility] [address] [facility] [place] [address] Prothrombin time (PT) Coag time (PPP) 13.1 s Normal 11.3-14.5 [facility] are Comment on above: Performed By: #### 3 [id number] ####[facility] [address] [facility] [place] [address] Encounters Encounter Date Encounter Type Care Provider Facility Start: 05-12-2022 End: 05-12-[address] CABRERA JONES Facility:[facility] Start: 09-20-2021 End: 09-20-[address] CABRERA JONES Facility:[facility] Start: 09-15-2021 End: 09-16-[address] CABRERA JONES Facility:[facility] Start: 09-02-2021 End: 09-03-[address] CABRERA JONES Facility:[facility] Start: 08-24-2021 End: 08-24-[address] MARCIAL BOB Facility:[facility] Start: 05-16-2017 End: 05-16-2017 Ambulatory Tito VALLE Facility:[facility] Start: 05-10-2017 Ambulatory Tito VALLE Facility:[facility] Start: 05-09-2017 Ambulatory Tito VALLE [facility] Payers Date Payer Category Payer Unknown [id number] 2.16.84 [id number] 1975 Unknown [id number] 2.16.84 [id number] 1975 Unknown [id number] 2.16.84 [id number] 1975 Unknown [id number] 2.16.84 [id number] 1975 Unknown [id number] 2.16.84 [id number] 1961 Medicaid [id number] 1961 Unknown [id number] Medicare [id number] Clinical Note 03-01-2022 Note Date & Type [...] 2: Mother and Brother. Heart disease: Mother. [facility] Comment on above: Result Comment: Elec [...] section and content) DATE CREATED AUTHOR 04/24/2018 [facility] DATE CREATED AUTHOR AUTHOR'S ORGANIZ ATION 01/01/2020 [facility] DATE CREATED AUTHOR AUTHOR'S ORGANIZ ATION 03/03/2022 [facility] DATE CREATED AUTHOR AUTHOR'S ORGANIZ ATION 05/18/2022 [...] BE BASED ON THE PRIMARY CLINICAL RECORDS. [facility]. provides no warranty or guarantee of the accuracy or completeness of information in this document.
--- NOTE | 2024-07-25 21:04 | ED_ITS ---
Documented by User: RUSSELL Hammer 07/25/24 21:28 HPI HPI - General Adult General Chief complaint: Urogenital-Female Stated complaint: blood in urine Time Seen by Provider: 07/25/24 20:59 Source: patient Mode of arrival: walk-in Limitations: no limitations History of Present Illness HPI narrative: Patient is a 49-year-old female with a history of kidney stones who presents to the emergency department for evaluation of blood that she noted in her urine this evening. She denies fevers, vomiting. She states she has been intermittently nauseous for the last several days. She does have some aching to the low back but denies any severe pain. She states she has passed multiple kidney stones, she has not needed her procedure or lithotripsy for many years. She does not currently have a urologist. She states she does feel like she is emptying her bladder. She has not passed any blood clots. She states she thought she was getting sick for the last several days as she has a history of sinus issues and reports mild sinus congestion at this time but has not had any significant nasal drainage or coughing. No medications taken prior to arrival. Related Data Home Medications ?Medication ?Instructions ?Recorded ?Confirmed albuterol sulfate 90 mcg/actuation 2 puff inhalation Q4H PRN 08/16/23 08/16/23 aerosol inhaler shortness of breath or wheezing diclofenac sodium 75 mg 75 mg PO BID PRN pain 08/16/23 08/16/23 tablet,delayed release ferrous sulfate 325 mg (65 mg 325 mg PO DAILY 08/16/23 08/16/23 iron) tablet (Feosol) hydroxyzine HCl 25 mg tablet 25 mg PO DAILY PRN anxity 08/16/23 08/16/23 pantoprazole 40 mg tablet,delayed 40 mg PO QDAY 08/16/23 08/16/23 release prednisone 20 mg tablet 60 mg PO QDAY 08/16/23 08/16/23 Previous Rx's ?Medication ?Instructions ?Recorded amoxicillin 875 mg-potassium 1 tab PO Q12H #20 tabs 08/17/23 clavulanate 125 mg tablet Allergies Allergy/AdvReac Type Severity Reaction Status Date / Time No Known Drug Allergies Allergy Verified 07/25/24 20:54 Opioid HPI Opioid Management Most Recent Opioid Data: Last Pain Scale 0 08/17/23 10:53 Review of Systems ROS Constitutional Denies: fever or chills Ears, nose, mouth, and throat Reports: nasal congestion; Denies: throat pain Cardiovascular Denies: chest pain Respiratory Denies: shortness of breath or cough Gastrointestinal Reports: nausea; Denies: abdominal pain or vomiting Genitourinary Reports: blood in urine Musculoskeletal Reports: back pain; Denies: neck pain Neurological Denies: numbness in extremities or weakness in extremities PFSH [facility] Medical History (Updated 07/25/24 @ 21:28 by RUSSELL Hammer) Kidney stones ?N20.0 - Calculus of kidney (ICD-10) Right knee meniscal tear ?S83.206A - Unspecified tear of unspecified meniscus, current injury, right knee, initial encounter (ICD-10) Hiatal hernia ?K44.9 - Diaphragmatic hernia without obstruction or gangrene (ICD-10) Fibromyalgia ?M79.7 - Fibromyalgia (ICD-10) Asthma with acute exacerbation ?J45.901 - Unspecified asthma with (acute) exacerbation (ICD-10) Surgical History (Updated 08/16/23 @ 15:15 by Ruchi Yoo) Tubal ligation status ?Z98.51 - Tubal ligation status (ICD-10) History of cholecystectomy ?Z90.49 - Acquired absence of other specified parts of digestive tract (ICD- 10) Social History Smoking status: Former smoker Little interest or pleasure in doing things: not at all Feeling down, depressed, or hopeless: not at all Exam Narrative Exam Narrative: Gen.: Awake, alert, in no distress Head: Normocephalic, atraumatic ENT: Moist mucous membranes, bilateral TMs clear Respiratory: No respiratory distress, lungs clear bilaterally Cardio: Regular rate and rhythm Gastrointestinal: Abdomen is soft, nondistended and nontender to palpation Back: No CVA tenderness Extremities: Moves extremities equally Psych: Normal mood and affect Neuro: No focal neuro deficit Skin: Warm, dry, intact Constitutional Vital Signs, click to edit/add: Last Vital Signs Temp 98.2 F 07/25/24 20:54 Pulse 96 H 07/25/24 20:54 Resp 20 07/25/24 20:54 BP 163/105 H 07/25/24 20:54 Pulse Ox 97 07/25/24 20:54 O2 Del Method Room Air 07/25/24 20:54 Course Vital Signs Vital signs: Vital Signs Temperature 98.2 F 07/25/24 20:54 Pulse Rate 96 H 07/25/24 20:54 Respiratory Rate 20 07/25/24 20:54 Blood Pressure 163/105 H 07/25/24 20:54 Pulse Oximetry 97 07/25/24 20:54 Oxygen Delivery Method Room Air 07/25/24 20:54 Temperature 98.2 F 07/25/24 20:54 Pulse Rate 96 H 07/25/24 20:54 Respiratory Rate 20 07/25/24 20:54 Blood Pressure 163/105 H 07/25/24 20:54 Pulse Oximetry 97 07/25/24 20:54 Oxygen Delivery Method Room Air 07/25/24 20:54 Medical Decision Making MDM Narrative Medical decision making narrative: 2129: Patient was ordered to have IV fluids. She declined pain medication. Labs and urine specimen are ordered for her. CT of the abdomen and pelvis without contrast is pending. Case is turned over to attending physician at this time for disposition. SHARED APC VISIT, PHYSICIAN ATTESTATION: [id number] I performed a substantive part of the MDM during the patient?s E/M visit. I personally evaluated and examined the patient. I personally made or approved the documented management plan and acknowledge its risk of complications. Medical Records Medical records reviewed: Yes I reviewed the patient's medical records Lab Data Lab results reviewed: Yes I reviewed the patient's lab results Labs: Lab Results 07/25/24 Range/Units 21:25 WBC 9.0 (4.0-11.0) 10^3/uL RBC 4.93 (4.20-5.40) 10^6/uL Hgb 14.8 (12.0-16.0) g/dL Hct 43.8 (36.0-48.0) % MCV 88.8 (81.0-99.0) fL MCH 30.0 (26.7-34.0) pg MCHC 33.8 (29.9-35.2) g/dL RDW 12.9 (11.0-15.0) % Plt Count 124 L (150-450) 10^3/uL MPV 12.9 (9.5-13.5) fL Neut % (Auto) 59.2 (43.0-75.0) % Lymph % (Auto) 31.1 (20.5-60.0) % [place] % (Auto) 5.4 (1.7-12.0) % Eos % (Auto) 3.2 (0.9-7.0) % Baso % (Auto) 0.8 (0.2-2.0) % Neut # (Auto) 5.3 (1.4-6.5) 10^3/uL Lymph # (Auto) 2.8 (1.2-3.8) 10^3/uL [place] # (Auto) 0.5 (0.3-0.8) 10^3/uL Eos # (Auto) 0.3 (0.0-0.7) 10^3/uL Baso # (Auto) 0.1 (0.0-0.1) 10^3/uL Abs Immat Gran (auto) 0.03 (0.00-0.03) 10^3/uL Imm/Tot Granulo (auto) 0.3 (0.0-0.5) % Sodium 141 (136-145) mmol/L Potassium 3.8 (3.5-5.1) mmol/L Chloride 103 (98-107) mmol/L Carbon Dioxide 25.6 (21.0-32.0) mmol/L Anion Gap 16.2 BUN 20.0 H (7.0-18.0) mg/dL Creatinine 0.97 (0.55-1.02) mg/dL Est GFR ( Amer) >60 (>=60) Est GFR (Non-Af Amer) >60 (>=60) BUN/Creatinine Ratio 20.6 Glucose 101 (74-106) mg/dL Lactate 0.7 (0.4-2.0) mmol/L Calcium 9.6 (8.5-10.1) mg/dL Total Bilirubin 0.6 (0.2-1.0) mg/dL AST 72 H (15-37) U/L ALT 163 H (14-59) U/L Alkaline Phosphatase 80 (46-116) U/L Total Protein 7.1 (6.4-8.2) g/dL Albumin 4.1 (3.4-5.0) g/dL Globulin 3.0 g/dL Albumin/Globulin Ratio 1.4 Lipase 27.0 (16.0-77.0) U/L Urine Color Dk. brown (YELLOW) Urine Clarity Slightly cloudy A (CLEAR) Urine pH 5.5 (5.0-9.0) Ur Specific [place] >=1.030 A (1.005-1.025) Urine Protein 30 A (NEG/TRACE) mg/dL Urine Glucose (UA) Negative (NEGATIVE) mg/dL Urine Ketones Negative (NEGATIVE) mg/dL Urine Occult Blood Large A (NEGATIVE) Urine Nitrite Negative (NEGATIVE) Urine Bilirubin Small A (NEGATIVE) Urine Urobilinogen 1.0 (0.2-1.0) EU/dL Ur Leukocyte Esterase Negative (NEGATIVE) Urine RBC >100 A (0-2) #/HPF Urine WBC 0-2 A (NONE SEEN) #/HPF Ur Squamous Epith Cells Few A (NONE/RARE) #/LPF Urine Crystals None seen (None Seen) #/HPF Urine Bacteria Trace A (NONE SEEN) #/HPF Urine Casts None seen (NONE SEEN) #/LPF Urine Mucus None seen (NONE SEEN) Urine Yeast Seen A (NONE SEEN) Ur Culture Indicated? No Discharge Plan Discharge Chief Complaint: Urogenital-Female Clinical Impression: Hematuria Patient Disposition: Home, Self-Care Prescriptions / Home Meds: No Action albuterol sulfate 90 mcg/actuation HFA aerosol inhaler 2 puff INHALATION Q4H PRN (Reason: shortness of breath or wheezing) hydroxyzine HCl 25 mg tablet 25 mg PO DAILY PRN (Reason: anxity) prednisone 20 mg tablet 60 mg PO QDAY Rx Instructions: STARTED ON 08/14/23 X5 DAYS diclofenac sodium 75 mg tablet,delayed release (DR/EC) 75 mg PO BID PRN (Reason: pain) Rx Instructions: LASTED FILLED 09/19 pantoprazole 40 mg tablet,delayed release (DR/EC) 40 mg PO QDAY Patient Comments: LAST FILLED 01/19/23 X90 DAYS ferrous sulfate [Feosol] 325 mg (65 mg iron) tablet 325 mg PO DAILY amoxicillin-pot clavulanate 875-125 mg tablet 1 tab PO Q12H Qty: 20 0RF Print Language: Salvadorean Instructions: Kidney Stones (ED), Hematuria (ED) Additional Instructions: drink plenty of fluids. Follow up with your urologist next week. Return if worsening pain or fever Referrals: Lance Jones MD [Primary Care Provider] - 1 week Documented by User: Rk Crespo MD 07/25/24 23:08 HPI HPI - General Adult General Chief complaint: Urogenital-Female Stated complaint: blood in urine Time Seen by Provider: 07/25/24 20:59 Related Data Home Medications ?Medication ?Instructions ?Recorded ?Confirmed albuterol sulfate 90 mcg/actuation 2 puff inhalation Q4H PRN 08/16/23 08/16/23 aerosol inhaler shortness of breath or wheezing diclofenac sodium 75 mg 75 mg PO BID PRN pain 08/16/23 08/16/23 tablet,delayed release ferrous sulfate 325 mg (65 mg 325 mg PO DAILY 08/16/23 08/16/23 iron) tablet (Feosol) hydroxyzine HCl 25 mg tablet 25 mg PO DAILY PRN anxity 08/16/23 08/16/23 pantoprazole 40 mg tablet,delayed 40 mg PO QDAY 08/16/23 08/16/23 release prednisone 20 mg tablet 60 mg PO QDAY 08/16/23 08/16/23 Previous Rx's ?Medication ?Instructions ?Recorded amoxicillin 875 mg-potassium 1 tab PO Q12H #20 tabs 08/17/23 clavulanate 125 mg tablet Allergies Allergy/AdvReac Type Severity Reaction Status Date / Time No Known Drug Allergies Allergy Verified 07/25/24 20:54 Opioid HPI Opioid Management Most Recent Opioid Data: Last Pain Scale 0 08/17/23 10:53 PFSH PFSH Medical History (Updated 07/25/24 @ 21:28 by RUSSELL Hammer) Kidney stones ?N20.0 - Calculus of kidney (ICD-10) Right knee meniscal tear ?S83.206A - Unspecified tear of unspecified meniscus, current injury, right knee, initial encounter (ICD-10) Hiatal hernia ?K44.9 - Diaphragmatic hernia without obstruction or gangrene (ICD-10) Fibromyalgia ?M79.7 - Fibromyalgia (ICD-10) Asthma with acute exacerbation ?J45.901 - Unspecified asthma with (acute) exacerbation (ICD-10) Surgical History (Updated 08/16/23 @ 15:15 by Ruchi Yoo) Tubal ligation status ?Z98.51 - Tubal ligation status (ICD-10) History of cholecystectomy ?Z90.49 - Acquired absence of other specified parts of digestive tract (ICD- 10) Social History Smoking status: Former smoker Little interest or pleasure in doing things: not at all Feeling down, depressed, or hopeless: not at all Exam Constitutional Vital Signs, click to edit/add: Last Vital Signs Temp 98.2 F 07/25/24 20:54 Pulse 96 H 07/25/24 20:54 Resp 20 07/25/24 20:54 BP 163/105 H 07/25/24 20:54 Pulse Ox 97 07/25/24 20:54 O2 Del Method Room Air 07/25/24 20:54 Course Vital Signs Vital signs: Vital Signs Temperature 98.2 F 07/25/24 20:54 Pulse Rate 96 H 07/25/24 20:54 Respiratory Rate 07/25/24 20:54 Blood Pressure 163/105 H 07/25/24 20:54 Pulse Oximetry 97 07/25/24 20:54 Oxygen Delivery Method Room Air 07/25/24 20:54 Temperature 98.2 F 07/25/24 20:54 Pulse Rate 96 H 07/25/24 20:54 Respiratory Rate 20 07/25/24 20:54 Blood Pressure 163/105 H 07/25/24 20:54 Pulse Oximetry 97 07/25/24 20:54 Oxygen Delivery Method Room Air 07/25/24 20:54 Medical Decision Making MDM Narrative Medical decision making narrative: 2129: Patient was ordered to have IV fluids. She declined pain medication. Labs and urine specimen are ordered for her. CT of the abdomen and pelvis without contrast is pending. Case is turned over to attending physician at this time for disposition. care transferred at change of shift. UA without evidence of infection. CT with 4.5mm proximal ureteral stone. Patient is feeling better. Discharged home to follow up with urology SHARED APC VISIT, PHYSICIAN ATTESTATION: [id number] I performed a substantive part of the MDM during the patient?s E/M visit. I personally evaluated and examined the patient. I personally made or approved the documented management plan and acknowledge its risk of complications. Lab Data Labs: Lab Results 07/25/24 Range/Units 21:25 WBC 9.0 (4.0-11.0) 10^3/uL RBC 4.93 (4.20-5.40) 10^6/uL Hgb 14.8 (12.0-16.0) g/dL Hct 43.8 (36.0-48.0) % MCV 88.8 (81.0-99.0) fL MCH 30.0 (26.7-34.0) pg MCHC 33.8 (29.9-35.2) g/dL RDW 12.9 (11.0-15.0) % Plt Count 124 L (150-450) 10^3/uL MPV 12.9 (9.5-13.5) fL Neut % (Auto) 59.2 (43.0-75.0) % Lymph % (Auto) 31.1 (20.5-60.0) % [place] % (Auto) 5.4 (1.7-12.0) % Eos % (Auto) 3.2 (0.9-7.0) % Baso % (Auto) 0.8 (0.2-2.0) % Neut # (Auto) 5.3 (1.4-6.5) 10^3/uL Lymph # (Auto) 2.8 (1.2-3.8) 10^3/uL [place] # (Auto) 0.5 (0.3-0.8) 10^3/uL Eos # (Auto) 0.3 (0.0-0.7) 10^3/uL Baso # (Auto) 0.1 (0.0-0.1) 10^3/uL Abs Immat Gran (auto) 0.03 (0.00-0.03) 10^3/uL Imm/Tot Granulo (auto) 0.3 (0.0-0.5) % Sodium 141 (136-145) mmol/L Potassium 3.8 (3.5-5.1) mmol/L Chloride 103 (98-107) mmol/L Carbon Dioxide 25.6 (21.0-32.0) mmol/L Anion Gap 16.2 BUN 20.0 H (7.0-18.0) mg/dL Creatinine 0.97 (0.55-1.02) mg/dL Est GFR ( Amer) >60 (>=60) Est GFR (Non-Af Amer) >60 (>=60) BUN/Creatinine Ratio 20.6 Glucose 101 (74-106) mg/dL Lactate 0.7 (0.4-2.0) mmol/L Calcium 9.6 (8.5-10.1) mg/dL Total Bilirubin 0.6 (0.2-1.0) mg/dL AST 72 H (15-37) U/L ALT 163 H (14-59) U/L Alkaline Phosphatase 80 (46-116) U/L Total Protein 7.1 (6.4-8.2) g/dL Albumin 4.1 (3.4-5.0) g/dL Globulin 3.0 g/dL Albumin/Globulin Ratio 1.4 Lipase 27.0 (16.0-77.0) U/L Urine Color Dk. brown (YELLOW) Urine Clarity Slightly cloudy A (CLEAR) Urine pH 5.5 (5.0-9.0) Ur Specific [place] >=1.030 A (1.005-1.025) Urine Protein 30 A (NEG/TRACE) mg/dL Urine Glucose (UA) Negative (NEGATIVE) mg/dL Urine Ketones Negative (NEGATIVE) mg/dL Urine Occult Blood Large A (NEGATIVE) Urine Nitrite Negative (NEGATIVE) Urine Bilirubin Small A (NEGATIVE) Urine Urobilinogen 1.0 (0.2-1.0) EU/dL Ur Leukocyte Esterase Negative (NEGATIVE) Urine RBC >100 A (0-2) #/HPF Urine WBC 0-2 A (NONE SEEN) #/HPF Ur Squamous Epith Cells Few A (NONE/RARE) #/LPF Urine Crystals None seen (None Seen) #/HPF Urine Bacteria Trace A (NONE SEEN) #/HPF Urine Casts None seen (NONE SEEN) #/LPF Urine Mucus None seen (NONE SEEN) Urine Yeast Seen A (NONE SEEN) Ur Culture Indicated? No Discharge Plan Discharge Chief Complaint: Urogenital-Female Clinical Impression: Hematuria Patient Disposition: Home, Self-Care Prescriptions / Home Meds: No Action albuterol sulfate 90 mcg/actuation HFA aerosol inhaler 2 puff INHALATION Q4H PRN (Reason: shortness of breath or wheezing) hydroxyzine HCl 25 mg tablet 25 mg PO DAILY PRN (Reason: anxity) prednisone 20 mg tablet 60 mg PO QDAY Rx Instructions: STARTED ON 08/14/23 X5 DAYS diclofenac sodium 75 mg tablet,delayed release (DR/EC) 75 mg PO BID PRN (Reason: pain) Rx Instructions: LASTED FILLED 09/19 pantoprazole 40 mg tablet,delayed release (DR/EC) 40 mg PO QDAY Patient Comments: LAST FILLED 01/19/23 X90 DAYS ferrous sulfate [Feosol] 325 mg (65 mg iron) tablet 325 mg PO DAILY amoxicillin-pot clavulanate 875-125 mg tablet 1 tab PO Q12H Qty: 20 0RF Print Language: Salvadorean Instructions: Kidney Stones (ED), Hematuria (ED) Additional Instructions: drink plenty of fluids. Follow up with your urologist next week. Return if worsening pain or fever Referrals: Lance Jones MD [Primary Care Provider] - 1 week
--- NOTE | 2024-07-25 21:10 | CT_ITS ---
The [address] [address] Patient Name: CE ALEJANDRA MRN: [id number] date: 1975 Sex: F Assigned Patient Location: ER Current Patient Location: ER Accession/Order Number: [id number] Exam Date: 07/25/2024 21:31 Report Date: 07/25/2024 22:13 At the request of: SHAWN SANCHEZ Procedure: CT abdomen pelvis wo con EXAM: CT abdomen pelvis wo con HISTORY: Hematuria COMPARISON: CT ABD/PELVIS WO CON Date 06/04/2019 TECHNIQUE: Multiple axial images of the abdomen and pelvis are obtained without the use of IV contrast material. Coronal and sagittal reformatted sequences are submitted for review. FINDINGS: Partially visualized large hiatal hernia is seen containing the partially visualized stomach. No intra-abdominal stomach is seen. The heart size is normal. The lung bases appear clear. Patient is post cholecystectomy. Surgical clips are seen in the gallbladder fossa. The liver, spleen, pancreas and bilateral adrenal glands appear unremarkable on this noncontrast examination. Multiple intrarenal calculi are seen bilaterally measuring up to 7 mm. There is no evidence for right hydronephrosis. Mild left hydronephrosis and proximal left hydroureter seen down to a 4.5 mm calculus seen in the proximal left ureter at the level of the inferior L3 vertebral body. Circumferential wall thickening of the urinary bladder is seen, suggestive of mild infectious/inflammatory process. Please correlate clinically. Nonobstructive bowel pattern is seen. Normal-appearing appendix is visualized. Large volume of stool is seen in the ascending colon. No significant bowel wall thickening is seen. No significant free fluid or abnormal fluid collection is seen in the abdomen and pelvis. The vascular structures demonstrate normal caliber. Small fat-containing bilateral inguinal hernia is seen. No destructive osseous lesion is seen. CT/CT abdomen pelvis wo con IMPRESSION: Mild left hydronephrosis and proximal left hydroureter seen down to a 4.5 mm calculus seen in the proximal left ureter at the level of the inferior L3 vertebral body. Circumferential wall thickening of the urinary bladder is seen, suggestive of mild infectious/inflammatory process. Please correlate clinically. Partially visualized large hiatal hernia is seen containing the partially visualized stomach. Electronically authenticated by: ALYCE RODRÍGUEZ Date: 07/25/2024 22:13
[2024-07-25 21:38] LABS: Basophils Absolute Auto 0.1 10^3/uL (0.0-0.1); Basophils Percent Auto 0.8 % (0.2-2.0); Bilirubin Urine SMALL (NEGATIVE); Blood Urine LARGE (NEGATIVE); Color Urine DK. BROWN (YELLOW); Eosinophils Absolute Auto 0.3 10^3/uL (0.0-0.7); Eosinophils Percent Auto 3.2 % (0.9-7.0); Glucose Urine UA NEGATIVE (NEGATIVE); Hematocrit 43.8 % (36.0-48.0); Hemoglobin 14.8 g/dL (12.0-16.0); Immature Granulocytes Abs Auto 0.03 10^3/uL (0.00-0.03); Immature Granulocytes Pct Auto 0.3 % (0.0-0.5); Ketones Urine NEGATIVE (NEGATIVE); Leukocyte Esterase Urine NEGATIVE (NEGATIVE); Lymphocytes Absolute Auto 2.8 10^3/uL (1.2-3.8); Lymphocytes Percent Auto 31.1 % (20.5-60.0); Mean Corpuscular HGB Conc 33.8 g/dL (29.9-35.2); Mean Corpuscular Volume 88.8 fL (81.0-99.0); Mean Platelet Volume 12.9 fL (9.5-13.5); Monocytes Absolute Auto 0.5 10^3/uL (0.3-0.8); Monocytes Percent Auto 5.4 % (1.7-12.0); Neutrophils Absolute Auto 5.3 10^3/uL (1.4-6.5); Neutrophils Percent Auto 59.2 % (43.0-75.0); Nitrite Urine NEGATIVE (NEGATIVE); Platelet Count 124 10^3/uL (150-450); Protein Urine 30 mg/dL (NEG/TRACE); Red Blood Count 4.93 10^6/uL (4.20-5.40); Red Cell Distribution Width 12.9 % (11.0-15.0); Specific Gravity Urine >=1.030 (1.005-1.025); pH Urine 5.5 (5.0-9.0)
[2024-07-25] MEDS: 0.9 % SODIUM CHLORIDE 1,000 ML 999 ML IV (21:40)
[2024-07-25 21:43] LABS: Urine Microscopic Indicated YES
[2024-07-25 21:44] LABS: Clarity Urine SLIGHTLY CLOUDY (CLEAR)
[2024-07-25 21:47] LABS: Alanine Aminotransferase 163 U/L (14-59); Albumin Globulin Ratio 1.4; Albumin Level 4.1 g/dL (3.4-5.0); Alkaline Phosphatase 80 U/L (46-116); Anion Gap 16.2; Aspartate Amino Transferase 72 U/L (15-37); BUN Creatinine Ratio 20.6; Bilirubin Total 0.6 mg/dL (0.2-1.0); Calcium 9.6 mg/dL (8.5-10.1); Carbon Dioxide 25.6 mmol/L (21.0-32.0); Chloride 103 mmol/L (98-107); Estimated GFR (African America >60 (>=60); Estimated GFR (Non-African Ame >60 (>=60); Glucose 101 mg/dL (74-106); Potassium 3.8 mmol/L (3.5-5.1); Sodium 141 mmol/L (136-145); Total Protein 7.1 g/dL (6.4-8.2)
[2024-07-25 21:48] LABS: Bacteria Urine TRACE #/HPF (NONE SEEN); Cast Seen? NONE SEEN #/LPF (NONE SEEN); Crystals Seen? None Seen #/HPF (None Seen); Mucus Urine NONE SEEN (NONE SEEN); RBC Urine >100 #/HPF (0-2); Squamous Epithelial Cell Urine FEW #/LPF (NONE/RARE); Urine Culture Indicated NO; WBC Urine 0-2 #/HPF (NONE SEEN)
[2024-07-25 21:49] LABS: Lactate/Lactic Acid 0.7 mmol/L (0.4-2.0)
[2024-07-25] MEDS: TAMSULOSIN HCL 0.4 MG CAPSULE PO (23:34)
[2024-07-25] MEDS: KETOROLAC TROMETHAMINE 10 MG TABLET PO (23:34)
== END 2024-07-25 23:36 | disposition home or self-care (01) ==
PROVIDERS: Physician Assistant; Emergency Provider Internal Medicine; PCP Family Medicine
DX: R31.9 Hematuria, unspecified (principal); Z87.442 Personal history of urinary calculi; Z87.891 Personal history of nicotine dependence
CPT/HCPCS: 36415; 74176; 80053; 81001; 83605; 83690; 85025; 99284

== ENCOUNTER 2024-07-31 07:02 | Outpatient (OUT) | payer MEDICARE, MEDICAID, SELFPAY ==
--- OUTSIDE RECORDS SUMMARY | 2024-07-31 07:06 | XMS_ITS | CCD ---
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 When there are no FDA-approved or cleared tests available, and other criteria are met, FDA can make tests available under an emergency access mechanism called an Emergency Use Authorization (EUA). The EUA for this test is supported by the Platinum of Health and Human Service's (HHS's) declaration [...] #### C MP, BNP, TSH, HSTROPN #### [facility] [address] [place] [address] Dr. Emily Hercules Facesheeton 03-02-2022 Facesheet [id number] .[id number]:127 Normal [facility] Physician Referralon 022 Physician Referral [id number]. [id number]:127 Normal [facility] Covid-19 PCR (CVDTB)on 08-30 SARS-CoV-2 (COVID-19) RNA SUKHWINDER+probe Ql (Unsp spec) Not detected Normal NOT DETECTED [facility] Comment on above: Result Comment: This test is not yet approved or cleared by the [place] FDA. When there are no FDA-approved or cleared tests available, and other criteria are met, FDA can make tests available under an emergency access mechanism called an Emergency Use Authorization (EUA). The EUA for this test is supported by the Oscillograph Technician of Health and Human Service's (HHS's) declaration [...] consistent with SARS-CoV-2. Performed By: #### [facility] #### [facility] [address] [address] [address] Emily Hercules MG MAMM SCREEN 3D SHELLY CADon 09-15-2021 MG MAMM SCREEN 3D SHELLY CAD Patient: KIYA BHAT Exam Date: 09/15/2021 : 1975 Gender:F Ordering : DR CABRERA JONES . Admission #: [id number] Family : Order #: [id number] CLICK HERE TO VIEW EXAM RADIOLOGY REPORT PROCEDURE: MAMMOGRAM SCREENING 3D BILATERAL CAD COMPARISON: None. INDICATIONS: Screening mammography Calculator Name NCI Breast Cancer Risk Assessment Tool 5 Year Breast Cancer Risk 0.70% Lifetime Breast Cancer Risk 6.70% Personal Breast Cancer No Personal Ovarian Cancer No Treatments None Family Cancers Grandmother-maternal with leukemia cancer at age 38. LOCATION: [facility] BREAST COMPOSITION: Scattered areas fibroglandular density. [...] Serna MD on 09/15/2021 at 11:59 Normal [facility] FSHon 09-03-2021 FSH 8.8 mIU/mL Normal [facility] Comment on above: Result Comment: Adul t Female: Follicular phase 3.5 - 12.5 Ovulation phase 4.7 - 21.5 Luteal phase 1.7 - 7.7 Postmenopausal 25.8 - 134.8 Performed By: #### L BCFSH #### [facility] [address] [place] [address] Dr. Emily Hercules INSULINon 09-03-2021 Insulin 19.4 uIU/mL Normal 2.6-24.9 [facility] Comment on above: Performed By: #### C MP, BNP, TSH, HSTROPN #### [facility] [address] [place] [address] Dr. Emily Hercules CBC AUTO DIFFon 09-02-2021 BASO # 0.1 103/ul Normal 0.0-0.1 [facility] Comment on above: Performed By: #### C BC #### [facility] [address] [place] [address] Dr. Emily Hercules Basophils/100 WBC (Bld) 0.7 % Normal 0.2-2.0 [facility] Comment on above: Performed By: #### C BC #### [facility] [address] [place] [address] Dr. Emily Hercules EO # 0.3 103/ul Normal 0.0-0.7 [facility] Comment on above: Performed By: #### C BC #### [facility] [address] [place] [address] Dr. Emily Hercules Eosinophils/100 WBC (Bld) 3.8 % Normal 0.9-7.0 [facility] Comment on above: Performed By: #### C BC #### [facility] [address] [place] [address] Dr. Emily Hercules Erythrocyte distribution width (RBC) [Ratio] 13.6 % Normal 11.0-15.0 [facility] Comment on above: Performed By: #### C BC #### [facility] [address] [place] [address] Dr. Emily Hercules Hematocrit (Bld) [Volume fraction] 42.6 % Normal 36.0-48.0 [facility] Comment on above: Performed By: #### C BC #### [facility] [address] [place] [address] Dr. Emily Hercules Hemoglobin (Bld) [Mass/Vol] 14.5 g/dL Normal 12.0-16.0 [facility] Comment on above: Performed By: #### C BC #### [facility] [address] [place] [address] Dr. Emily Hercules IG # 0.08 10e3/ul Critically high 0.00-0.03 [facility] Comment on above: Performed By: #### C BC #### [facility] [address] [place] [address] Dr. Emily Hercules IG % 1.0 % Critically high 0.0-0.5 [facility] Comment on above: Performed By: #### C BC #### [facility] [address] [place] [address] Dr. Emily Hercules LYMPH # 2.2 103/ul Normal 1.2-3.8 [facility] Comment on above: Performed By: #### C BC #### [facility] [address] [place] [address] Dr. Emily Hercules Lymphocytes/100 WBC (Bld) 27.4 % Normal 20.5-60.0 [facility] Comment on above: Performed By: #### C BC #### [facility] [address] [place] [address] Dr. Emily Hercules MANUAL DIFF REQ NO Normal [facility] Comment on above: Performed By: #### C BC #### [facility] [address] [place] [address] Dr. Emily Hercules MCH (RBC) [Entitic mass] 30.2 pg Normal 26.7-34.0 [facility] Comment on above: Performed By: #### C BC #### [facility] [address] [place] [address] Dr. Emily Hercules MCHC (RBC) [Mass/Vol] 34.0 g/dL Normal 29.9-35.2 [facility] Comment on above: Performed By: #### C BC #### [facility] [address] [place] [address] Dr. Emily Hercules MCV (RBC) [Entitic vol] 88.8 fL Normal 81.0-99.0 [facility] Comment on above: Performed By: #### C BC #### [facility] [address] [place] [address] Dr. Emily Hercules MONO # 0.5 103/ul Normal 0.3-0.8 [facility] Comment on above: Performed By: #### C BC #### [facility] [address] [place] [address] Dr. Emily Hercules Monocytes/100 WBC (Bld) 6.2 % Normal 1.7-12.0 [facility] Comment on above: Performed By: #### C BC #### [facility] [address] [place] [address] Dr. Emily Hercules NEUT # 4.9 103/ul Normal 1.4-6.5 [facility] Comment on above: Performed By: #### C BC #### [facility] [address] [place] [address] Dr. Emily Hercules Neutrophils/100 WBC (Bld) 60.9 % Normal 43.0-75.0 [facility] Comment on above: Performed By: #### C BC #### [facility] [address] [address] [address] Emily Hercules Platelet mean volume (Bld) [Entitic vol] 11.6 fL Normal 9.5-13.5 [facility] Comment on above: Performed By: #### C BC #### [facility] [address] [place] [address] Dr. Emily Hercules PLT 180 103/ul Normal 150-450 [facility] Comment on above: Performed By: #### C BC #### [facility] [address] [address] [address] Emily Hercules RBC 4.80 106/ul Normal 4.20-5.40 [facility] Comment on above: Performed By: #### C BC #### [facility] [address] [place] [address] Dr. Emily Hercules WBC 8.1 103/ul Normal 4.0-11.0 [facility] Comment on above: Performed By: #### C BC #### [facility] [address] [place] [address] Dr. Emily Hercules FREE THYROXINE INDEX T7on FTI 3.47 Normal [facility] Comment on above: Performed By: #### T 7, CMP, LIPID, TSH #### [facility] [address] [place] [address] Dr. Emily Hercules T3U 35.0 % Normal 23.5-40.5 [facility] Comment on above: Performed By: #### T 7, CMP, LIPID, TSH #### [facility] [address] [place] [address] Dr. Emily Hercules T4 [Mass/Vol] 9.90 ug/dL Normal 5.53-11.00 [facility] Comment on above: Performed By: #### T 7, CMP, LIPID, TSH #### [facility] [address] [place] [address] Dr. Emily Hercules GLYCOHEMOGLOBIN A1Con 2020 ADA RECOMMENDATION ADA THERAPEUTIC TARGET 6.0 - 7.0 ACTION SUGGESTED > 7.0 Normal [facility] Comment on above: Performed By: #### C MP, BNP, TSH, HSTROPN #### [facility] [address] [address] [address] Emily Hercules Glucose [Mass/Vol] 114 mg/dL Normal [facility] Comment on above: Performed By: #### C MP, BNP, TSH, HSTROPN #### [facility] [address] [address] [address] Emily Hercules HbA1c (Bld) [Mass fraction] 5.6 % Normal <=6.0 [facility] Comment on above: Performed By: #### C MP, BNP, TSH, HSTROPN #### [facility] [address] [address] [address] Emily Hercules IRONon 09-02-2021 Iron [Mass/Vol] 111.0 ug/dL Normal 37.0-170.0 [facility] Comment on above: Performed By: #### C MP, BNP, TSH, HSTROPN #### [facility] [address] [address] [address] Emily Hercules LIPID PROFILEon 09-02-2021 CHOL-HDL RATIO NORM SEE BELOW Normal [facility] Comment on above: Result Comment: 3.3 - 4.4 LOW RISK 4.4 - 7.1 AVERAGE RISK 7.1 - 11.0 MODERATE RISK >11.0 HIGH RISK Performed By: #### C MP, BNP, TSH, HSTROPN #### [facility] [address] [address] [address] Emily Hercules Cholesterol [Mass/Vol] 183 mg/dL Normal <=200 [facility] Comment on above: Performed By: #### C MP, BNP, TSH, HSTROPN #### [facility] [address] [address] [address] Emily Hercules Cholesterol in HDL [Mass/Vol] 43 mg/dL Normal [facility] Comment on above: Performed By: #### C MP, BNP, TSH, HSTROPN #### [facility] [address] [address] [address] Emily Hercules Cholesterol in LDL [Mass/Vol] 109.0 mg/dL Normal [facility] Comment on above: Performed By: #### C MP, BNP, TSH, HSTROPN #### [facility] [address] [address] [address] Emily Hercules Cholesterol.total/Ch olesterol in HDL [Mass ratio] 4.3 {ratio} Normal [facility] Comment on above: Performed By: #### C MP, BNP, TSH, HSTROPN #### [facility] [address] [address] [address] Emily Hercules HDL NORMAL > or = 60 mg/dl - LO W CARDIOVASCULAR RISK <40 mg/dl - HIGH CARDIOVASCULAR RISK Normal [facility] Comment on above: Performed By: #### C MP, BNP, TSH, HSTROPN #### [facility] [address] [place] [address] Dr. Emily Hercules LDL CALC NORMAL SEE BELOW Normal [facility] Comment on above: Result Comment: <100 mg/dl OPTIMAL 100 - 129 mg/dl NEAR OR ABOVE OPTIMAL 130 - 159 mg/dl BORDERLINE HIGH 160 - 189 mg/dl HIGH >190 mg/dl VERY HIGH Performed By: #### C MP, BNP, TSH, HSTROPN #### [facility] [address] [place] [address] Dr. Emily Hercules Triglyceride [Mass/Vol] 155 mg/dL Critically high <=150 [facility] Comment on above: Performed By: #### C MP, BNP, TSH, HSTROPN #### [facility] [address] [place] [address] Dr. Emily Hercules VLDL CALC 31.0 mg/dL Normal [facility] Comment on above: Performed By: #### C MP, BNP, TSH, HSTROPN #### [facility] [address] [address] [address] Emily Hercules PROF 14(COMP METB)on 021 Albumin [Mass/Vol] 3.8 g/dL Normal 3.5-5.0 [facility] Comment on above: Performed By: #### T 7, CMP, LIPID, TSH #### [facility] [address] [place], [place] [id number] Dr. Emily Hercules Albumin/Globulin [Mass ratio] 1.1 {ratio} Normal [facility] Comment on above: Performed By: #### T 7, CMP, LIPID, TSH #### [facility] [address] [place] [address] Dr. Emily Hercules ALP [Catalytic activity/Vol] 57 U/L Normal 38-126 [facility] Comment on above: Performed By: #### T 7, CMP, LIPID, TSH #### [facility] [address] [place] [address] Dr. Emily Hercules ALT [Catalytic activity/Vol] 57 U/L Critically high 9-52 [facility] Comment on above: Performed By: #### T 7, CMP, LIPID, TSH #### [facility] [address] [place] [address] Dr. Emily Hercules Anion gap [Moles/Vol] 11.7 mmol/L Normal [facility] Comment on above: Performed By: #### T 7, CMP, LIPID, TSH #### [facility] [address] [place] [address] Dr. Emily Hercules AST [Catalytic activity/Vol] 35 U/L Normal 14-36 [facility] Comment on above: Performed By: #### T 7, CMP, LIPID, TSH #### [facility] [address] [place] [address] Dr. Emily Hercules Bilirubin [Mass/Vol] 0.7 mg/dL Normal 0.2-1.3 [facility] Comment on above: Performed By: #### T 7, CMP, LIPID, TSH #### [facility] [address] [place] [address] Dr. Emily Hercules Calcium [Mass/Vol] 8.8 mg/dL Normal 8.4-10.2 [facility] Comment on above: Performed By: #### T 7, CMP, LIPID, TSH #### [facility] [address] [place] [address] Dr. Emily Hercules Chloride [Moles/Vol] 105 mmol/L Normal 98-107 [facility] Comment on above: Performed By: #### T 7, CMP, LIPID, TSH #### [facility] [address] [address] [address] Emily Hercules CO2 [Moles/Vol] 26.1 mmol/L Normal 22.0-30.0 [facility] Comment on above: Performed By: #### T 7, CMP, LIPID, TSH #### [facility] [address] [address] [address] Emily Hercules Creatinine [Mass/Vol] 1.34 mg/dL Critically high 0.52-1.04 [facility] Comment on above: Performed By: #### T 7, CMP, LIPID, TSH #### [facility] [address] [place] [address] Dr. Emily Hercules EGFR-AF BRUNEIAN 51 mL/min/1.73m2 Critically low >=60 [facility] Comment on above: Performed By: #### T 7, CMP, LIPID, TSH #### [facility] [address] [place] [address] Dr. Emily Hercules EGFR-NON AF BRUNEIAN 42 mL/min/1.73m2 Critically low >=60 [facility] Comment on above: Performed By: #### T 7, CMP, LIPID, TSH #### [facility] [address] [place] [address] Dr. Emily Hercules Globulin (S) [Mass/Vol] 3.4 g/dL Normal [facility] Comment on above: Performed By: #### T 7, CMP, LIPID, TSH #### [facility] [address] [place] [address] Dr. Emily Hercules Glucose [Mass/Vol] 92 mg/dL Normal 74-106 [facility] Comment on above: Performed By: #### T 7, CMP, LIPID, TSH #### [facility] [address] [place] [address] Dr. Emily Hercules Potassium [Moles/Vol] 3.8 mmol/L Normal 3.4-5.0 [facility] Comment on above: Performed By: #### T 7, CMP, LIPID, TSH #### [facility] [address] [place] [address] Dr. Emily Hercules Protein [Mass/Vol] 7.2 g/dL Normal 6.1-8.2 [facility] Comment on above: Performed By: #### T 7, CMP, LIPID, TSH #### [facility] [address] [place] [address] Dr. Emily Hercules Sodium [Moles/Vol] 139 mmol/L Normal 137-145 [facility] Comment on above: Performed By: #### T 7, CMP, LIPID, TSH #### [facility] [address] [place] [address] Dr. Emily Hercules Urea nitrogen [Mass/Vol] 21.0 mg/dL Critically high 7.0-17.0 [facility] Comment on above: Performed By: #### T 7, CMP, LIPID, TSH #### [facility] [address] [place] [address] Dr. Emily Hercules Urea nitrogen/Creatinine [Mass ratio] 15.7 mg/mg Normal [facility] Comment on above: Performed By: #### T 7, CMP, LIPID, TSH #### [facility] [address] [place] [address] Dr. Emily Hercules TSHon 09-02-2021 TSH 1.130 uIU/mL Normal 0.470-4.680 [facility] Comment on above: Performed By: #### T 7, CMP, LIPID, TSH #### [facility] [address] [place] [address] Dr. Emily Hercules TSH RANGE SEE BELOW Normal [facility] Comment on above: Result Comment: <0.3 4 UIU/ml HYPERTHYROID 0.34-5.60 UIU/ml EUTHYROID >5.60 UIU/ml HYPOTHYROID Performed By: #### T 7, CMP, LIPID, TSH #### [facility] [address] [place] [address] Dr. Emily Hercules BNPon 08-24-2021 Natriuretic peptide B (Bld) [Mass/Vol] 98.0 pg/mL Normal <=450.0 [facility] Comment on above: Performed By: #### C MP, BNP, TSH, HSTROPN #### [facility] [address] [place] [address] Dr. Emily Hercules CBC AUTO DIFFon 08-24-2021 BASO # 0.0 103/ul Normal 0.0-0.1 [facility] Comment on above: Performed By: #### C MP, BNP, TSH, HSTROPN #### [facility] [address] [place] [address] Dr. Emily Hercules Basophils/100 WBC (Bld) 0.6 % Normal 0.2-2.0 [facility] Comment on above: Performed By: #### C MP, BNP, TSH, HSTROPN #### [facility] [address] [place] [address] Dr. Emily Hercules EO # 0.3 103/ul Normal 0.0-0.7 [facility] Comment on above: Performed By: #### C MP, BNP, TSH, HSTROPN #### [facility] [address] [place] [address] Dr. Emily Hercules Eosinophils/100 WBC (Bld) 4.1 % Normal 0.9-7.0 [facility] Comment on above: Performed By: #### C MP, BNP, TSH, HSTROPN #### [facility] [address] [place] [address] Dr. Emily Hercules Erythrocyte distribution width (RBC) [Ratio] 13.6 % Normal 11.0-15.0 [facility] Comment on above: Performed By: #### C MP, BNP, TSH, HSTROPN #### [facility] [address] [place] [address] Dr. Emily Hercules Hematocrit (Bld) [Volume fraction] 39.4 % Normal 36.0-48.0 [facility] Comment on above: Performed By: #### C MP, BNP, TSH, HSTROPN #### [facility] [address] [place] [address] Dr. Emily Hercules Hemoglobin (Bld) [Mass/Vol] 13.4 g/dL Normal 12.0-16.0 [facility] Comment on above: Performed By: #### C MP, BNP, TSH, HSTROPN #### [facility] [address] [place] [address] Dr. Emily Hercules IG # 0.02 10e3/ul Normal 0.00-0.03 [facility] Comment on above: Performed By: #### C MP, BNP, TSH, HSTROPN #### [facility] [address] [place] [address] Dr. Emily Hercules IG % 0.3 % Normal 0.0-0.5 [facility] Comment on above: Performed By: #### C MP, BNP, TSH, HSTROPN #### [facility] [address] [place] [address] Dr. Emily Hercules LYMPH # 1.8 103/ul Normal 1.2-3.8 [facility] Comment on above: Performed By: #### C MP, BNP, TSH, HSTROPN #### [facility] [address] [place] [address] Dr. Emily Hercules Lymphocytes/100 WBC (Bld) 25.9 % Normal 20.5-60.0 [facility] Comment on above: Performed By: #### C MP, BNP, TSH, HSTROPN #### [facility] [address] [place] [address] Dr. Emily Hercules MANUAL DIFF REQ NO Normal [facility] Comment on above: Performed By: #### C MP, BNP, TSH, HSTROPN #### [facility] [address] [place] [address] Dr. Emily Hercules MCH (RBC) [Entitic mass] 29.9 pg Normal 26.7-34.0 [facility] Comment on above: Performed By: #### C MP, BNP, TSH, HSTROPN #### [facility] [address] [place] [address] Dr. Emily Hercules MCHC (RBC) [Mass/Vol] 34.0 g/dL Normal 29.9-35.2 [facility] Comment on above: Performed By: #### C MP, BNP, TSH, HSTROPN #### [facility] [address] [place] [address] Dr. Emily Hercules MCV (RBC) [Entitic vol] 87.9 fL Normal 81.0-99.0 [facility] Comment on above: Performed By: #### C MP, BNP, TSH, HSTROPN #### [facility] [address] [place] [address] Dr. Emily Hercules MONO # 0.4 103/ul Normal 0.3-0.8 [facility] Comment on above: Performed By: #### C MP, BNP, TSH, HSTROPN #### [facility] [address] [place] [address] Dr. Emily Hercules Monocytes/100 WBC (Bld) 5.8 % Normal 1.7-12.0 [facility] Comment on above: Performed By: #### C MP, BNP, TSH, HSTROPN #### [facility] [address] [place] [address] Dr. Emily Hercules NEUT # 4.4 103/ul Normal 1.4-6.5 [facility] Comment on above: Performed By: #### C MP, BNP, TSH, HSTROPN #### [facility] [address] [place] [address] Dr. Emily Hercules Neutrophils/100 WBC (Bld) 63.3 % Normal 43.0-75.0 [facility] Comment on above: Performed By: #### C MP, BNP, TSH, HSTROPN #### [facility] [address] [place] [address] Dr. Emily Hercules Platelet mean volume (Bld) [Entitic vol] 11.7 fL Normal 9.5-13.5 [facility] Comment on above: Performed By: #### C MP, BNP, TSH, HSTROPN #### [facility] [address] [place] [address] Dr. Emily Hercules PLT 122 103/ul Critically low 150-450 [facility] Comment on above: Performed By: #### C MP, BNP, TSH, HSTROPN #### [facility] [address] [place], [place] [address] Dr. Emily Hercules RBC 4.48 106/ul Normal 4.20-5.40 [facility] Comment on above: Performed By: #### C MP, BNP, TSH, HSTROPN #### [facility] [address] [place], [place] [address] Dr. Emily Hercules WBC 6.9 103/ul Normal 4.0-11.0 [facility] Comment on above: Performed By: #### C MP, BNP, TSH, HSTROPN #### [facility] [address] [place], [place] [address] Dr. Emily Hercules CTA CHEST WO W [...] NATY BALDERRAMA Date: 2021-08-24 17:14 Normal [facility] Covid-19 PCR (CVDTBH)on 07-30 SARS-CoV-2 (COVID-19) RNA SUKHWINDER+probe Ql (Unsp spec) Not detected Normal NOT DETECTED [facility] Comment on above: Result Comment: This test is not yet approved or cleared by the [place] FDA. When there are no FDA-approved or cleared tests available, and other criteria are met, FDA can make tests available under an emergency access mechanism called an Emergency Use Authorization (EUA). The EUA for this test is supported by the Platinum of Health and Human Service's (HHS's) declaration [...] #### C MP, BNP, TSH, HSTROPN #### [facility] [address] [address] [address] Emily Hercules LACTATE/LACTIC ACIDon 2020 Lactate [Moles/Vol] 0.5 mmol/L Critically low 0.7-2.0 [facility] Comment on above: Performed By: #### C MP, BNP, TSH, HSTROPN #### [facility] [address] [address] [address] Emily Hercules PROF 14(COMP METB)on 021 Albumin [Mass/Vol] 3.7 g/dL Normal 3.5-5.0 [facility] Comment on above: Performed By: #### C MP, BNP, TSH, HSTROPN #### [facility] [address] [place] [address] Dr. Emily Hercules Albumin/Globulin [Mass ratio] 1.0 {ratio} Normal [facility] Comment on above: Performed By: #### C MP, BNP, TSH, HSTROPN #### [facility] [address] [place] [address] Dr. Emily Hercules ALP [Catalytic activity/Vol] 63 U/L Normal 38-126 [facility] Comment on above: Performed By: #### C MP, BNP, TSH, HSTROPN #### [facility] [address] [place] [address] Dr. Emily Hercules ALT [Catalytic activity/Vol] 66 U/L Critically high 9-52 [facility] Comment on above: Performed By: #### C MP, BNP, TSH, HSTROPN #### [facility] [address] [place] [address] Dr. Emily Hercules Anion gap [Moles/Vol] 12.3 mmol/L Normal [facility] Comment on above: Performed By: #### C MP, BNP, TSH, HSTROPN #### [facility] [address] [place] [address] Dr. Emily Hercules AST [Catalytic activity/Vol] 48 U/L Critically high 14-36 [facility] Comment on above: Performed By: #### C MP, BNP, TSH, HSTROPN #### [facility] [address] [place] [address] Dr. Emily Hercules Bilirubin [Mass/Vol] 0.6 mg/dL Normal 0.2-1.3 [facility] Comment on above: Performed By: #### C MP, BNP, TSH, HSTROPN #### [facility] [address] [place] [address] Dr. Emily Hercules Calcium [Mass/Vol] 9.2 mg/dL Normal 8.4-10.2 [facility] Comment on above: Performed By: #### C MP, BNP, TSH, HSTROPN #### [facility] [address] [place] [address] Dr. Emily Hercules Chloride [Moles/Vol] 103 mmol/L Normal 98-107 [facility] Comment on above: Performed By: #### C MP, BNP, TSH, HSTROPN #### [facility] [address] [address] [address] Emily Hercules CO2 [Moles/Vol] 25.2 mmol/L Normal 22.0-30.0 [facility] Comment on above: Performed By: #### C MP, BNP, TSH, HSTROPN #### [facility] [address] [place] [address] Dr. Emily Hercules Creatinine [Mass/Vol] 1.49 mg/dL Critically high 0.52-1.04 [facility] Comment on above: Performed By: #### C MP, BNP, TSH, HSTROPN #### [facility] [address] [place] [address] Dr. Emily Hercules EGFR-AF BRUNEIAN 45 mL/min/1.73m2 Critically low >=60 [facility] Comment on above: Performed By: #### C MP, BNP, TSH, HSTROPN #### [facility] [address] [place] [address] Dr. Emily Hercules EGFR-NON AF BRUNEIAN 37 mL/min/1.73m2 Critically low >=60 [facility] Comment on above: Performed By: #### C MP, BNP, TSH, HSTROPN #### [facility] [address] [place] [address] Dr. Emily Hercules Globulin (S) [Mass/Vol] 3.6 g/dL Normal [facility] Comment on above: Performed By: #### C MP, BNP, TSH, HSTROPN #### [facility] [address] [place] [address] Dr. Emily Hercules Glucose [Mass/Vol] 100 mg/dL Normal 74-106 [facility] Comment on above: Performed By: #### C MP, BNP, TSH, HSTROPN #### [facility] [address] [address] [address] Emily Hercules Potassium [Moles/Vol] 4.5 mmol/L Normal 3.4-5.0 [facility] Comment on above: Performed By: #### C MP, BNP, TSH, HSTROPN #### [facility] [address] [place] [address] Dr. Emily Hercules Protein [Mass/Vol] 7.3 g/dL Normal 6.1-8.2 [facility] Comment on above: Performed By: #### C MP, BNP, TSH, HSTROPN #### [facility] [address] [address] [address] Emily Hercules Sodium [Moles/Vol] 136 mmol/L Critically low 137-145 [facility] Comment on above: Performed By: #### C MP, BNP, TSH, HSTROPN #### [facility] [address] [address] [address] Emily Hercules Urea nitrogen [Mass/Vol] 22.0 mg/dL Critically high 7.0-17.0 [facility] Comment on above: Performed By: #### C MP, BNP, TSH, HSTROPN #### [facility] [address] [address] [address] Emily Hercules Urea nitrogen/Creatinine [Mass ratio] 14.8 mg/mg Normal [facility] Comment on above: Performed By: #### C MP, BNP, TSH, HSTROPN #### [facility] [address] [place] [address] Dr. Emily Hercules PROTIMEon 08-24-2021 INR Coag (PPP) [Relative time] 1.08 {INR} Normal [facility] Comment on above: Performed By: #### C MP, BNP, TSH, HSTROPN #### [facility] [address] [place] [address] Dr. Emily Hercules INR GUIDELINES SEE BELOW Normal [facility] Comment on above: Result Comment: GUILLERMO RED INR: 2.0 - 3.0 CONDITIONS NOT LISTED BELOW 2.5 - 3.5 FOR PROSTHETIC HEART VALVE REPLACEMENT 2.5 - 3.5 RECURRENT THROMBOSIS Performed By: #### C MP, BNP, TSH, HSTROPN #### [facility] [address] [place] [address] Dr. Emily Hercules PT Coag (PPP) [Time] 11.6 s Normal 9.0-11.6 [facility] Comment on above: Performed By: #### C MP, BNP, TSH, HSTROPN #### [facility] [address] [place] [address] Dr. Emily Hercules PTTon 08-24-2021 aPTT Coag (Bld) [Time] 29.6 s Normal 22.3-36.2 [facility] Comment on above: Performed By: #### C MP, BNP, TSH, HSTROPN #### [facility] [address] [place] [address] Dr. Emily Hercules TROPONIN, HIGH SENSITIVITYon 08-24-2021 HSTROP 4.9 pg/mL Normal 4.0-35.5 [facility] Comment on above: Result Comment: CUT- OFF POINTS HAVE BEEN ESTABLISHED BASED ON THE FOURTH UNIVERSAL DEFINITIONS OF MYOCARDIAL INFARCTION. THE UPPER REFERENCE LIMIT (URL) OF TROPONIN, DEFINED THE 99TH PERCENTILE OF cTnI DISTRIBUTION IN A REFERENCE POPULATION, HAS BEEN CONFIRMED THE DECISION THRESHOLD FOR WA DIAGNOSIS. Performed By: #### C MP, BNP, TSH, HSTROPN #### [facility] [address] [place] [address] Dr. Emily Hercules HSTROP 7.0 pg/mL Normal 4.0-35.5 [facility] Comment on above: Result Comment: CUT- OFF POINTS HAVE BEEN ESTABLISHED BASED ON THE FOURTH UNIVERSAL DEFINITIONS OF MYOCARDIAL INFARCTION. THE UPPER REFERENCE LIMIT (URL) OF TROPONIN, DEFINED THE 99TH PERCENTILE OF cTnI DISTRIBUTION IN A REFERENCE POPULATION, HAS BEEN CONFIRMED THE DECISION THRESHOLD FOR WA DIAGNOSIS. Performed By: #### C MP, BNP, TSH, HSTROPN #### [facility] [address] [place] [address] Dr. Emily Hercules TSHon 08-24-2021 TSH 1.614 uIU/mL Normal 0.470-4.680 [facility] Comment on above: Performed By: #### C MP, BNP, TSH, HSTROPN #### [facility] [address] [place], [place] [address] Dr. Emily Hercules TSH RANGE SEE BELOW Normal [facility] Comment on above: Result Comment: <0.3 4 UIU/ml HYPERTHYROID 0.34-5.60 UIU/ml EUTHYROID >5.60 UIU/ml HYPOTHYROID Performed By: #### C MP, BNP, TSH, HSTROPN #### [facility] [address] [place], [place] [address] Dr. Emily Hercules US KARINE DOP LEG [...] by: MARCIAL BOB Date: 2021-08-24 16:22 Normal [facility] PROGRESSon 01-01-2020 PROGRESS HNO ID: [id number] Author: Jane (Phd) Bo Service: ? Author Type: Psychologist Type: Progress Notes Filed: 01/01/2020 8:43 AM Note Text: Received medical records from [facility] dated 2018- present. No records from [...] psychology evaluation. Jane Soriano, Ph.D. Psychologist Normal [facility] PROGRESSon 11-18-2019 PROGRESS HNO ID: [id number] Author: Jane (Phd) Bo Service: ? Author Type: Psychologist Type: Progress Notes Filed: 11/18/2019 12:04 PM Note Text: Received a one-line letter from Exeland Amiigo [facility] stating patient does not have uncontrolled bipolar disorder. Message sent to navigator requesting past 24 months of mental health records for further review. Jane Soriano, Ph.D. Psychologist [facility] PROGRESSon 10-09-2019 PROGRESS HNO ID: [id number] Author: Merlin Ardon Service: ? Author Type: [...] REYGB. P: RTC prn. Merlin Ardon MD [facility] CNOVon 10-08-2019 CNOV Office Visit (KAET ) KIYA BHAT ([id number]) 1975 F Date Time Provider Department 10/08/19 [...] Merlin Ardon MD Referring Provider: MERLIN ARDON [[id number]] Allergies As of Date: 10/08/2019 (No Known [...] (None) Disposition: Return for RETURN TO [facility] NEEDED. Follow-up and Disposition History Recorded Encounter Status:Closed by MERLIN ARDON MD on 10/09/19 [facility] PROGRESSon 10-06-2019 PROGRESS HNO ID: [id number] Author: Darnell (Rn) HAWK Cornelius Service: ? [...] notes for risk assessment. Darnell Cornelius RN [facility] PROGRESSon 07-08-2019 PROGRESS HNO ID: [id number] Author: Merlin Ardon Service: ? Author Type: Physician Type: Progress Notes Filed: 07/08/2019 10:02 PM Note Text: I have read and reviewed the documentation and agree. I wish to add the followingI wish to add the following findings which will be communicated back to the requesting physician. Merlin Ardon MD [facility] CNOVon 07-07-2019 CNOV Office Visit (THORMN ) KIYA BHAT ([id number]) 1975 F Date Time Provider Department 07/07/19 9:30 AM MERLIN ARDON During your visit today, we recorded the following information about you: Temperature Pulse Blood pressure Weight 98.2 degrees 68/minute 120/74 110.7 kg Height 1.6 m Merlin Ardon MD 07/08/2019 10:02 PM Signed [facility] OUTPATIENT CONSULT NOTE Kiya Bhat [id number] Requesting Provider: Dr. Koehler Thoracic Physician: Merlin [...] Take 1 tablet by mouth once daily. xlvukkg-fwxbhjmdo-jfw dunaway D3 (CALCIUM 500+D) 500 mg(1,250mg) -200 [...] Ardon MD SIGNATURE: Merlin Ardon MD PAGER: [phone] DATE of SERVICE: 07/07/2019 TIME of SERVICE: [...] Ardon MD Referring Provider: LILIA KOEHLER JR [[id number]] Allergies As of Date: 07/07/2019 (No Known Allergies) Date Reviewed: 07/07/2019 Reviewed by: Darya Tony - Fully Assessed Primary Visit Diagnosis:Diaphragmat ic hernia without obstruction and without gangrene [K44.9] Order(s):CONSULT [facility]ATRIC[facility] [[id number]] Order #: [id number]: 1 Prescriptions as of 07/07/2019 Sig: MULTIVITAMIN [...] by MERLIN ARDON MD on 07/08/19 Normal [facility] PROGRESSon 07-07-2019 PROGRESS HNO ID: [id number] Author: Merlin Ardon Service: ? Author Type: Physician Type: Progress Notes Filed: 07/08/2019 10:02 PM Note Text: [facility] OUTPATIENT CONSULT NOTE Kiya Bhat [id number] Requesting Provider: Dr. Koehler Thoracic Physician: Merlin [...] Take 1 tablet by mouth once daily. kthbwur-sctrhtqpf-vtr dunaway D3 (CALCIUM 500+D) 500 mg(1,250mg) -200 [...] Ardon MD SIGNATURE: Merlin Ardon MD PAGER: [phone] DATE of SERVICE: 07/07/2019 TIME of SERVICE: 9:59 AM ouside imaging uploaded to dicom disc returned to pt Normal [facility] CNOVon 06-24-2019 CNOV Office Visit (GENSCC ) KIYA BHAT ([id number]) 1975 F Date Time Provider Department 06/24/19 2:20 PM LILIA KOEHLER JR [facility] During your visit today, we recorded the following information about you: Pulse Blood pressure Weight Height 80/minute 123/78 108.4 kg 1.594 m Lilia Koehler MD 06/24/2019 2:38 PM Signed CONSULTATION Ms. Bhat is here today at the request of Dory Ogden MD [address] [place] [id number] for my opinion regarding thoracic stomach. My [...] file Gets together: Not on file Attends mandaen service: Not on file Active member of [...] provider [place] [address] [place] [id number] Referring Provider: DORY OGDEN [[id number]] Allergies As of Date: 06/24/2019 (No Known Allergies) Date Reviewed: 06/24/2019 Reviewed by: Haven Vasquez Ma - Fully Assessed Reason for Visit: Consult [173] Cmt: new pt.referred by Dr. Jones for a HIatal Hernia for 4yrs. Reason For Visit History Recorded Primary Visit Diagnosis:Hiatal hernia [K44.9] Other Visit Diagnoses:Incisional hernia, without obstruction or gangrene [K43.2] Thoracic stomach [K44.9] Order(s):CONSULT TO THORACIC [[id number]] Order #: [id number]: 1 Prescriptions as of 06/24/2019 Sig: MULTIVITAMIN [...] Status:Closed by LILIA KOEHLER MD on 06/24/19 [facility] PROGRESSon 06-24-2019 PROGRESS HNO ID: [id number] Author: Lilia Koehler Jr. Service: ? Author Type: Physician Type: Progress Notes Filed: 06/24/2019 2:38 PM Note Text: CONSULTATION Ms. Bhat is here today at the request of Dory Ogden MD [address] [place] [id number] for my opinion regarding thoracic stomach. My [...] file Gets together: Not on file Attends mandaen service: Not on file Active member of [...] Dory Ogden MD [address] [place] [id number] Normal [facility] SR-CT ABD/PELVIS WO CON IMPO RTon 06-04-2019 SR-CT ABD/PELVIS WO CON IMPORT Images were obtained outside of [facility] [id number] N Normal [facility] GA-US SINGLE QUAD LEROY IMPORTo n 05-30-2019 GA-US SINGLE QUAD LEROY IMPORT Images were obtained outside of [facility] [id number] N Normal [facility] Test (Serum)on Test, Serum Negative Normal [facility] Comment on above: Performed By: #### 3 [id number] ####[facility] [address] [place] [address] CBC With Differentialon 04-28 Basophils Auto #/vol (Bld) 0.06 10*3/uL Normal 0.01-0.07 [facility] Comment on above: Performed By: #### 2 [id number] ####[facility] [address] [place] [address] Basophils/100 WBC Auto (Bld) 0.7 % Normal 0.1-1.2 [facility] Comment on above: Performed By: #### 2 945003 ####[facility] [address] [place] [address] Eosinophils 0.51 10*3/uL High 0.04-0.50 [facility] hospital are Comment on above: Performed By: #### 2 580839 ####[facility] [address] [place] [address] Eosinophils/100 leukocytes 6.1 % Normal 0.0-8.1 [facility] Comment on above: Performed By: #### 2 368569 ####[facility] [address] [place] [address] Erythrocyte distribution width Auto Ratio (RBC) 13.2 % Normal 12.0-15.4 [facility] Comment on above: Performed By: #### 2 346826 ####[facility] [address] [place] [address] Erythrocytes (RBC) 4.67 10*6/uL Normal 3.85-5.10 [facility] Comment on above: Performed By: #### 2 874657 ####[facility] [address] [place] [address] Erythrocytes (RBC) 0.0 /100{WBCs} Normal [facility] Comment on above: Performed By: #### 2 [id number] ####[facility] [address] [place] [address] Erythrocytes (RBC) 0.00 10*3/uL Normal [facility] Comment on above: Performed By: #### 2 343528 ####[facility] [address] [place] [address] Hematocrit (HCT) 40.8 % Normal 36.5-46.6 [facility] Comment on above: Performed By: #### 2 817014 ####[facility] [address] [place] [address] Hemoglobin mass conc (Bld) 13.6 g/dL Normal 11.8-15.3 [facility] Comment on above: Performed By: #### 2 372528 ####[facility] [address] [place] [address] Imm Grans Absolute 0.02 10*3/uL Normal 0.00-0.21 [facility] Comment on above: Performed By: #### 2 752300 ####[facility] [address] [place] [address] Immature granulocytes #/vol (Bld) 0.2 % Normal [facility] Comment on above: Performed By: #### 2 689407 ####[facility] [address] [place] [address] Lymphocytes 2.15 10*3/uL Normal 0.40-2.84 [facility] Comment on above: Performed By: #### 2 717860 ####[facility] [address] [place] [address] Lymphocytes/100 leukocytes 25.8 % Normal 15.7-50.5 [facility] Comment on above: Performed By: #### 2 528758 ####[facility] [address] [place] [address] MCH 29.1 pg Normal 27.5-33.0 [facility] Comment on above: Performed By: #### 2 077064 ####[facility] [address] [place] [address] MCHC mass conc (RBC) 33.3 g/dL Normal 30.1-35.0 [facility] Comment on above: Performed By: #### 2 826633 ####[facility] [address] [place] [address] MCV 87.4 fL Normal 85.4-100.0 [facility] Comment on above: Performed By: #### 2 463725 ####[facility] [address] [place] [address] Monocytes 0.57 10*3/uL Normal 0.25-0.83 [facility] Comment on above: Performed By: #### 2 163526 ####[facility] [address] [place] [address] Monocytes/100 leukocytes 6.9 % Normal 4.8-12.7 [facility] Comment on above: Performed By: #### 2 087549 ####[facility] [address] [place] [address] Neutrophils 5.01 10*3/uL Normal 1.95-6.85 [facility] are Comment on above: Performed By: #### 2 756550 ####[facility] [address] [place] [address] Neutrophils/100 leukocytes 60.3 % Normal 36.8-73.2 [facility] Comment on above: Performed By: #### 2 571787 ####[facility] [address] [place] [address] Platelet mean volume (PMV) 12.0 fL Normal 9.9-12.1 [facility] Comment on above: Performed By: #### 2 674399 ####[facility] [address] [place] [address] Platelets 207 10*3/uL Normal 155-404 [facility] Comment on above: Performed By: #### 2 544589 ####[facility] [address] [place] [address] RDW SD 42.2 fL Normal 39.3-48.6 [facility] Comment on above: Performed By: #### 2 860076 ####[facility] [address] [place] [address] WBC (Leukocytes) 8.3 10*3/uL Normal 4.4-9.9 [facility] Comment on above: Performed By: #### 2 213250 ####[facility] [address] [place] [address] Partial Thromboplastin Timeo n 05-10-2017 aPTT 28.4 s Normal 22.1-35.3 [facility] Comment on above: Result Comment: Luis allen note new Heparin Therapeutic range effective 02/14/17.Heparin Therapeutic Range: 71 - 97 sec Performed By: #### 3 070437 ####[facility] [address] [place] [address] Prothrombin Timeon 7 INR Coag RelTime (PPP) 1.00 {INR} Normal 0.85-1.16 [facility] Comment on above: Result Comment: Coum vanesa Therapy:1.5 - 2.0 Low Intensity Therapy2.0 - 3.0 Moderate Intensity Therapy2.5 - 3.5 High (1) Intensity Therapy3.0 - 4.0 High (2) Intensity Therapy Performed By: #### 3 [id number] ####[facility] [address] [place] [address] Prothrombin time (PT) Coag time (PPP) 13.1 s Normal 11.3-14.5 [facility] hospital are Comment on above: Performed By: #### 3 679473 ####[facility] [address] [place] [address] Encounters Encounter Date Encounter Type Care Provider Facility Start: 05-12-2022 End: 05-12-[address] CABRERA JONES Facility:[facility] Start: 09-20-2021 End: 09-20-[address] CABRERA JONES Facility:[facility] Start: 09-15-2021 End: 09-16-[address] CABRERA JONES Facility:[facility] Start: 09-02-2021 End: 09-03-[address] CABRERA JONES Facility:[facility] Start: 08-24-2021 End: 08-24-[address] MARCIAL BOB Facility:[facility] Start: 05-16-2017 End: 05-16-2017 Ambulatory Tito VALLE Facility:[facility] Start: 05-10-2017 Ambulatory Tito VALLE Facility:[email or web address] Start: 05-09-2017 Ambulatory Tito VALLE [facility] Payers Date Payer Category Payer Unknown [id number] 2.16.84 [id number] 1975 Unknown [id number] 2.16.84 [id number] 1975 Unknown [id number] 2.16.84 [id number] 1975 Unknown [id number] 2.16.84 [id number] 1975 Unknown [id number] 2.16.84 [id number] 1961 Medicaid [id number] 1961 Unknown [id number] Medicare [id number] Clinical Note 03-01-2022 Note Date & Type [...] 2: Mother and Brother. Heart disease: Mother. [facility] Comment on above: Result Comment: Elec [...] section and content) DATE CREATED AUTHOR 04/24/2018 [facility] DATE CREATED AUTHOR AUTHOR'S ORGANIZ ATION 01/01/2020 [facility] DATE CREATED AUTHOR AUTHOR'S ORGANIZ ATION 03/03/2022 Naif Sabillon [facility] DATE CREATED AUTHOR AUTHOR'S ORGANIZ ATION 05/18/2022 [...] PRIMARY CLINICAL RECORDS. [facility]. provides no warranty or guarantee of the accuracy or completeness of information in this document.
--- NOTE | 2024-07-31 07:07 | US_ITS ---
[address] [address] Patient Name: CE ALEJANDRA MRN: [id number] date: 1975 Sex: F Assigned Patient Location: US Current Patient Location: US Accession/Order Number: [id number] Exam Date: 07/31/2024 07:10 Report Date: 07/31/2024 13:16 At the request of: CABRERA VIGIL Procedure: US renal bladder EXAMINATION: US renal bladder HISTORY: NEPHROLITHIASIS N20.0 COMPARISON: No relevant comparison available. TECHNIQUE: Ultrasound examination was performed of the bladder. FINDINGS: Right Kidney: Normal in size, contour and echotexture. The cortex measures 0.9 cm. No solid cortical mass or hydronephrosis. Multiple echogenic foci measuring up to 6 mm, nonobstructing nephrolithiasis Height: 5.27 cm Length: 9.33 cm Width: 5.02 cm Left Kidney: Normal in size, contour and echotexture. The cortex measures 1.1 cm. No solid cortical mass or hydronephrosis. Multiple echogenic foci measuring up to 7 mm, nonobstructing nephrolithiasis Height: 4.44 cm Length: 11.49 cm Width: 3.71 cm Urinary bladder: Prevoid volume 258 mL. Post void volume 13 mL Ureteral jets visualized bilaterally US/US renal bladder IMPRESSION: Bilateral nonobstructing nephrolithiasis Electronically authenticated by: LOREE VALE Date: 07/31/2024 13:16
== END 2024-07-31 07:03 | disposition home or self-care (01) ==
LOC: US 07:02
PROVIDERS: PCP Family Medicine; Visit Provider Family Medicine
DX: N20.0 Calculus of kidney (principal)
CPT/HCPCS: 76770

== ENCOUNTER 2025-01-16 10:24 | Outpatient (OUT) | payer MEDICARE, MEDICAID, SELFPAY ==
--- NOTE | 2025-01-16 10:35 | XR_ITS ---
The [address] [address] Patient Name: CE ALEJANDRA MRN: [id number] date: 1975 Sex: F Assigned Patient Location: [facility] Current Patient Location: [facility] Accession/Order Number: [id number] Exam Date: 01/16/2025 12:25 Report Date: 01/16/2025 12:26 At the request of: CABRERA VIGIL MD Procedure: XR cervical spine 5V CERVICAL SPINE 5 views: CLINICAL HISTORY: Cervical Radiculopathy COMPARISON: None FINDINGS: Mild spondylosis C5-6. Oblique views appear unremarkable. Vertebral body heights appear maintained. No prevertebral soft tissue swelling. XR/XR cervical spine 5V IMPRESSION: MILD SPONDYLOSIS C5-6. Impression dictated by: Ozzy Bailey Jr. DMimiOMimi01/16/2025 12:26 PM Dictation Location: [place] [address] Electronically authenticated by: [id number] Y Date: 01/16/2025 12:26
--- OUTSIDE RECORDS SUMMARY | 2025-01-16 10:45 | XMS_ITS | CCD ---
Author Organization [facility] Care Team Providers Care Supervisor Special Effects Name Role Phone VALLE, M L Unavailable Unavailable VALLE, M L Unavailable Unavailable HOYCABRERA Unavailable Unavailable VALLE, M L Unavailable Unavailable VALLE, M L Unavailable Unavailable HOYCABRERA Unavailable Unavailable VALLE, M L Unavailable Unavailable CABRERA JONES Unavailable Unavailable FAZAL, DR REES Primary Care Unavailable NATHANY, DR REES Admitting Unavailable HOY, DR REES Attending Unavailable HOY, DR REES Consulting Unavailable PAULINO, DR MARCIAL Devine Consulting Unavailable KRYSTAL, DR DONA Ashraf Admitting Unavailabl e HOY, DR REES Primary Care Unavailable KRYSTAL, DR DONA Ashraf Attending Unavailabl e LAURA, RUSSELL ESCOBAR Consulting Unavailable CONCHIS, NATY Consulting Unavailable NATHANY, DR REES Admitting Unavailable HOY, DR REES Attending Unavailable HOY, DR REES Consulting Unavailable NATHANY, DR REES Primary Care Unavailable HOY, DR REES Admitting Unavailable HOY, DR REES Attending Unavailable FAZAL, DR REES Consulting Unavailable FAZAL, DR REES Primary Care Unavailable GREENWAY, DR LOREE Zimmerman Consulting Unavailable FAZAL, DR REES Primary Care Unavailable FAZAL, DR REES Admitting Unavailable FAZAL, DR REES Attending Unavailable FAZAL, DR REES Consulting Unavailable Marshal Faria MD, Ramon M Unavailable Cabrera Jones MD Primary Care Provider [phone] MERLIN ARDON Referring Unavailable CABRERA JONES Primary Care Unavailable MERLIN ARDON Attending Unavailable SELF Referring Unavailable CABRERA JONES Primary Care Unavailable Medications Current Medications Medication Drug Class(es) Dates Sig (Normalized) Sig (Original) calcium carbonate 1250 mg / cholecalciferol 200 unt oral tablet (5 sources) Vitamin D Start: 06-24-2019 take 1 tablet by mouth once daily nfpicqy-mepshlqos-rl tamin D3 (CALCIUM 500+D) 500 mg(1,250mg) -200 unit per tablet Take 1 tablet by mouth once daily. 06/24/2019 Active cetirizine hydrochloride 10 mg oral capsule (1 source) Histamine-1 Receptor Antagonist take 1 capsule by mouth once daily Cetirizine (ZYRTEC) 10 mg cap Take 10 mg by mouth once daily. Active cholecalciferol 0.125 mg oral tablet (5 sources) Vitamin D Start: 06-24-2019 take 1 tablet by mouth once daily cholecalciferol (VITAMIN D-3) 5,000 unit tab Take 1 tablet by mouth once daily. 06/24/2019 Active diclofenac sodium 75 mg delayed release oral tablet (5 sources) Nonsteroidal Anti-inflammatory Drug Start: 06-24-2019 take 1 tablet by mouth twice daily diclofenac, EC, (VOLTAREN) 75 mg EC tablet Take 1 tablet by mouth twice daily. 06/24/2019 Active ferrous sulfate 325 mg oral tablet (5 sources) Start: 06-24-2019 take 1 tablet by mouth twice daily ferrous sulfate 325 mg (65 mg iron) tablet Take 1 tablet by mouth twice daily. 06/24/2019 Active ibuprofen 200 mg oral capsule (5 sources) Nonsteroidal Anti-inflammatory Drug Start: 06-24-2019 Ibuprofen 200 mg cap Take 1-2 capsules by mouth as needed (for pain). 06/24/2019 Active multivitamin (MULTIPLE VITAMINS) tablet (5 sources) Start: 06-24-2019 take 1 tablet by mouth once daily multivitamin (MULTIPLE VITAMINS) tablet Take 1 tablet by mouth once daily. 06/24/2019 Active omeprazole 40 mg delayed release oral capsule (5 sources) Proton Pump Inhibitor Start: 06-24-2019 take 1 capsule by mouth twice daily Omeprazole 40 mg capsule Take 1 capsule by mouth twice daily. 06/24/2019 Active pantoprazole 40 mg delayed release oral tablet (1 source) Proton Pump Inhibitor Start: 11-05-2024 take 1 tablet by mouth once pantoprazole DR (PROTONIX) 40 mg tablet Take 1 tablet by mouth every afternoon. 11/05/2024 Active Problems Active Problems Problem Classification Problem Date Documented Date Episodic/Chronic Abdominal hernia (5 sources) Diaphragmatic hernia; Translations: [Diaphragmatic hernia without obstruction or gangrene] Onset: 12-24-2024 11-24-2024 Episodic Anxiety disorders (2 sources) Obsessive-compulsive disorder, unspecified; [...] 08-26-2021 Episodic Other aftercare (1 source) Other 411 directory assistance operator (current) drug therapy; Translations: [OTH FIXED INCOME ANALYST CURRENT DRUG THERAPY] Onset: 08-26-2021 Episodic Other [...] Test Name Value Interpretation Reference Range Facility [facility] 12-24-2024 CNOV Office Visit (KATE ) KIYA BHAT ([id number]) 1975 F Date Time Provider Department 12/24/24 2:15 PM MERLIN ARDON During your visit today, we recorded the following information about you: Temperature Pulse Respiration Blood pressure 98.2 degrees 89/minute 14/minute 117/79 Weight Height 85.3 kg 1.6 m Travis Manjarrez MD 01/03/2025 9:17 AM Signed [facility] THORAC[facility] SURG[facility] OUTPATIENT CONSULT NOTE Kiya Bhat [id number] Requesting Provider: Self Thoracic Physician: Merlin Ardon MD Chief Complaint: hiatal hernia Impression: Kiya Bhat is a 49 yo F former 25 PYS with PMH as below here for evaluation of hiatal and abdominal wall hernias after significant voluntary weight loss since last visit (BMI33). Has substernal pain with eating and early satiety, with CT showing type III hiatal hernia with entire stomach in chest, confirmed on esophagram. Plan: - Risks and benefits of minimally invasive hiatal hernia repair with likely Richard discussed with patient who understands and elects to proceed - Preoperative testing including stress test, walking test, and PFTs SIGNATURE: Travis Manjarrez MD DATE of SERVICE: 12/24/2024 TIME of SERVICE: 2:46 PM HPI: Kiya Bhat is a 49 year old White female former 25 PYS with PMH obesity (BMI33), abdominal wall hernia, arthritis, and kidney stones referred by self for an opinion regarding management of hiatal hernia. She was seen last in 2019 and at that time her BMI was 44. She has lost a substantial amount of weight with diet and lifestyle changes + Adipex. Her GI sxs are overall mild with no dysphagia, minimal regurgitation, and heartburn has resolved after starting PPI but does have substernal pain with eating and early satiety. Does note moderate shortness of breath. CT with type III hiatal hernia with entire stomach in chest, confirmed on esophagram. (document at least 4 of these elements) Location: substernal Quality: heartburn Severity: mild Duration: 1 time per month ECOG Score: 1 Living arrangement: Lives alone Functional status: Independent Unintentional weight loss over last 3 months: No PAST MEDICAL HISTORY Diagnosis Date Anemia Fibromyalgia Hernia - lesion left lower abdominal area Hiatal hernia Kidney stones NEGATIVE MEDICAL HISTORY No tb, dm, heart and ca OA (osteoarthritis) SOB (shortness of breath) PAST SURGICAL HISTORY Procedure Laterality Date CHOLECYSTECTOMY 1997 OTHER Right 2000 right knee scope TUBAL LIGATION HX 1996 FAMILY HISTORY Problem Relation Age of Onset Diabetes Mother Heart Attack Mother other (connective tissue disorder) Mother other (Other) Father not sure of medical history Diabetes Brother Kidney Disease Brother kidney stones Hearing Loss Brother Social History Tobacco Use Smoking status: Former Current packs/day: 0.00 Average packs/day: 1.5 packs/day for 18.0 years (27.0 ttl pk-yrs) Types: Cigarettes Start date: 05/06/2001 Quit date: 05/06/2019 Years since quittin.6 Smokeless tobacco: Never Tobacco comments: using E cig Substance Use Topics Alcohol use: Not Currently Drug use: Never ALLERGIES No Known Allergies Asbestos Exposure No PHYSICAL EXAM BP 117/79 Pulse 89 Temp 36.8 ?C (98.2 ?F) (Oral) Resp 14 Ht 160 cm (5' 3 ) Wt 85.3 kg (188 lb) SpO2 98% BMI 33.30 kg/m? Neck: No masses Resp: Clear Cardiovascular: Regular rate AND rhythm GI: Soft Neurological/Psychiat caryn: Oriented to time, place AND person Additional relevant findings: None DATA: Radiology: Patient is being referred to Merlin Ardon by Self for Hiatal Hernia Pathology: Procedures: Imaging Cardiopulmonary Testing PFT's/Six: Cardiac: Office Notes/Consults 11/12/24 pcp fazal 10/08/2019 JULIAN ARDON A: pt with type III PEH and morbid obesity (BMI of 44.3). I have once again reiterated her 3 choices and given her increasing BMI she will f/u with Dr. Romero for a REYGB. P: RTC prn. I have personally reviewed the following images/data: CT scan and Esophagram Outside Paper Medical Records Review personally performed by: Duglas Manjarrez Patient-Entered Questionnaire [facility] Esophageal Questionnaire 12/23/2024 Domain Symptom Raw Score Bother Raw Score Symptom T Score (0-100) Bother T Score (0-100) Dysphagia (7) 16 (Range 7-42) 17 (Range 7-35) 44.71 45.56 Eating (7) 15 (Range 7-42) 18 (Range 7-35) 50 52.4 Pain (5) 13 (Range 5-30) 14 (Range 5-25) 54.67 54.46 Dyspepsia (4) 10 (Range 4-24) 11 (Range 4-20) 48.98 51.22 Reflux ANDRegurgitation (5) Incomplete (Range 5-30) Incomplete (Range 5-25) Incomplete Incomplete Dumping (6) Incomplete (Range 6-36) Incomplete (Range 6-30) Incomplete Incomplete Merlin Ardon MD 01/03/2025 9:17 AM Signed I have read and reviewed the documentation and agree. I wish to add the following (more content not included)... Normal [facility] XR ESOPHAGRAMon 12-24-2024 XR ESOPHAGRAM * * *Final Report* * * DATE OF EXAM: Dec 24 2024 2:05PM [id number] [id number] - XR ESOPHAGRAM / PROCEDURE REASON: Diaphragmatic hernia without obstruction and without gangrene * * * * Physician Interpretation * * * * ESOPHAGRAM CLINICAL INFORMATION: Dysphagia. GERD. COMPARISON: CT 06/04/2019 TECHNIQUE: A biphasic examination of the esophagus was performed utilizing effervescent granules (E-Z-Gas II - 4 grams), high density barium, and low density barium. Contrast: ORAL: 150 ml of EZHD ORAL: 250 ml of EZPAQUE ORAL: 1 ml of EZ DISK Fluoroscopy radiation summary: Fluoroscopy time: 4:48 (min:sec). Air kerma: 37.7 mGy. RESULT: Caliber: Normal. Stricture, Ring, or Web: None. Motility: Normal. Hiatal Hernia: Large, type III with organoaxial orientation Gastroesophageal Reflux: None, despite provocative maneuvers including cough, Valsalva, straight leg raise, and water siphon. Gastric Cardia: Normal. Barium Tablet: Passed easily without reproducing symptoms. Other Findings: None. Staff Physician: Dr. Valdez was not present, but was immediately available, for the entire procedure. IMPRESSION: Large hiatal hernia (type III) with organoaxial orientation. No demonstrated gastroesophageal reflux. Airfield Manager: [facility] Transcribe Date/Time: Dec 24 2024 2:30P Dictated by : ALANNA FOSTER MD This examination was interpreted and the report reviewed and electronically signed by: LOREE VALDEZ MD on Dec 24 2024 3:55PM EST [id number] Normal [facility] XR Esophagus Views W contras t Thad 12-24-2024 IMPRESSION: Large hiatal hernia (type III) with organoaxial orientation. No demonstrated gastroesophageal reflux. Airfield Manager: [facility] Transcribe Date/Time: Dec 24 2024 2:30P Dictated by : ALANNA FOSTER MD This examination was interpreted and the report reviewed and electronically signed by: LOREE VALDEZ MD on Dec 24 2024 3:55PM EST DIVISION OF RADIOLOGY * * *Final Report* * * DATE OF EXAM: Dec 24 2024 2:05PM HGX [id number] - XR ESOPHAGRAM / PROCEDURE REASON: Diaphragmatic hernia without obstruction and without gangrene * * * * Physician Interpretation * * * * ESOPHAGRAM CLINICAL INFORMATION: Dysphagia. GERD. COMPARISON: CT 06/04/2019 TECHNIQUE: A biphasic examination of the esophagus was performed utilizing effervescent granules (E-Z-Gas II - 4 grams), high density barium, and low density barium. Contrast: ORAL: 150 ml of EZHD ORAL: 250 ml of EZPAQUE ORAL: 1 ml of EZ DISK Fluoroscopy radiation summary: Fluoroscopy time: 4:48 (min:sec). Air kerma: 37.7 mGy. RESULT: Caliber: Normal. Stricture, Ring, or Web: None. Motility: Normal. Hiatal Hernia: Large, type III with organoaxial orientation Gastroesophageal Reflux: None, despite provocative maneuvers including cough, Valsalva, straight leg raise, and water siphon. Gastric Cardia: Normal. Barium Tablet: Passed easily without reproducing symptoms. Other Findings: None. Staff Physician: Dr. Valdez was not present, but was immediately available, for the entire procedure. DIVISION OF RADIOLOGY Provider, [facility] - 12/24/2024 * * *Final Report* * * DATE OF EXAM: Dec 24 2024 2:05PM HGX [id number] - XR ESOPHAGRAM / PROCEDURE REASON: Diaphragmatic hernia without obstruction and without gangrene * * * * Physician Interpretation * * * * ESOPHAGRAM CLINICAL INFORMATION: Dysphagia. GERD. COMPARISON: CT 06/04/2019 TECHNIQUE: A biphasic examination of the esophagus was performed utilizing effervescent granules (E-Z-Gas II - 4 grams), high density barium, and low density barium. Contrast: ORAL: 150 ml of EZHD ORAL: 250 ml of EZPAQUE ORAL: 1 ml of EZ DISK Fluoroscopy radiation summary: Fluoroscopy time: 4:48 (min:sec). Air kerma: 37.7 mGy. RESULT: Caliber: Normal. Stricture, Ring, or Web: None. Motility: Normal. Hiatal Hernia: Large, type III with organoaxial orientation Gastroesophageal Reflux: None, despite provocative maneuvers including cough, Valsalva, straight leg raise, and water siphon. Gastric Cardia: Normal. Barium Tablet: Passed easily without reproducing symptoms. Other Findings: None. Staff Physician: Dr. Valdez was not present, but was immediately available, for the entire procedure. IMPRESSION IMPRESSION: Large hiatal hernia (type III) with organoaxial orientation. No demonstrated gastroesophageal reflux. Airfield Manager: [facility] Transcribe Date/Time: Dec 24 2024 2:30P Dictated by : ALANNA FOSTER MD This examination was interpreted and the report reviewed and electronically signed by: LOREE VALDEZ MD on Dec 24 2024 3:55PM EST [facility] Radiology Study observation (narrative) [facility] XR Esophagus Views W jhonatan berkowitz POOrdered By: Ccf Provider on 12-24-2024 [facility] CNPNon 11-24-2024 CNPN Telephone (KATE) KIYA BHAT ([id number]) 1975 F Date Time Provider Department 11/24/24 MERLIN ARDON During your visit today, we recorded the following information about you: Weight 88.9 kg Renae Holly 11/24/2024 1:28 PM Signed LOCAL PATIENT Received [employer] Staff Message from Earl Brar is former pt of Merlin Ardon M.D., Ph.D. by SELF Patient last seen in 2019 Patient diagnosis/Reason for consult: Diaphragmatic hernia triage process explained: Yes Patient will receive a call from Thoracic NPM after triage review with surgeon to discuss any additional testing and/or consults that will be scheduled. Pt will then receive a call from our scheduling office for scheduling. Please call pt at [phone]. Patient was informed consultation could be at [place] or Main [place]: No Patient Registration: Registration complete/updated: yes Insurance card(s) scanned in [employer] with in the past year: No Pt's [employer] is active. Ok to communicate to pt via MyChart yes Medical Records: Records in [facility] (internal CC records): Yes (old) Imaging in [facility] (internal CC records): Yes (old) Care Everywhere - queried yes, downloaded No Linked Outside Organizations (list): n/a OSH Records Requested: none Date: N/A Outside Hospital(s) requested records from: n/a Received: none Uploaded: N/A. Waiting on additional records: No. Missing (list): N/A OSH Pathology Slides Requested: none Date: N/A Outside Hospital(s) slides requested from: n/a OSH Radiology Imaging Requested: none Date: N/A Outside Hospital(s) requested imaging from: n/a. Imaging will be received via N/A Received: none Imaging uploaded: N/A Waiting on additional: No. Additional providers added to Care Teams: No Additional Notes/Comments: patient confirmed she has not been seen/treated for her diagnosis since her last visit here in 2019. No imaging. Enct routed to: Yes, Thoracic NPM for triage Jenni Gaviria RN 11/24/2024 4:13 PM Addendum Thoracic Surgery Consultation - review of records for appointment scheduling Patient is being referred to Merlin Ardon by Self for Hiatal Hernia Pathology: Procedures: Imaging Cardiopulmonary Testing PFT's/Six: Cardiac: Office Notes/Consults 11/12/24 pcp fazal 10/08/2019 JULIAN ARDON A: pt with type III PEH and morbid obesity (BMI of 44.3). I have once again reiterated her 3 choices and given her increasing BMI she will f/u with Dr. Romero for a REYGB. P: RTC prn. History of: FAMILY HISTORY Problem Relation Age of Onset Diabetes Mother Heart Attack Mother other (connective tissue disorder) Mother other (Other) Father not sure of medical history Diabetes Brother Kidney Disease Brother kidney stones Hearing Loss Brother PAST MEDICAL HISTORY Diagnosis Date Anemia Fibromyalgia Hernia - lesion left lower abdominal area Hiatal hernia Kidney stones NEGATIVE MEDICAL HISTORY No tb, dm, heart and ca OA (osteoarthritis) SOB (shortness of breath) PAST SURGICAL HISTORY Procedure Laterality Date CHOLECYSTECTOMY 1997 OTHER Right 2000 right knee scope TUBAL LIGATION HX 1996 Social History Tobacco Use Smoking status: Former Current packs/day: 0.00 Average packs/day: 1.5 packs/day for 18.0 years (27.0 ttl pk-yrs) Types: Cigarettes Start date: 05/06/2001 Quit date: 05/06/2019 Years since quittin.5 Smokeless tobacco: Never Tobacco comments: using E cig Substance Use Topics Alcohol use: Not Currently Drug use: Never pt main complaint is Shortness of breath, pt notes bloating gas pain with chest pain (not coordination with eating) Request consult with dr Ardon (pt has lost weight with diet exercise) esophagram HAWK Mi Marcia A 11/24/2024 4:38 PM Signed Patient confirmed appointment scheduled with Dr. Ardon with barium on 12/24/24 Referring Provider: SELF [200] Allergies As of Date: 11/24/2024 (No Known Allergies) Date Reviewed: 10/08/2019 Reviewed by: Darya Tony (Ut) - Fully Assessed Reason for Visit: Consult [173] Appointment Confirmation [6005] Primary Visit Diagnosis:Diaphragmat ic hernia without obstruction and without gangrene [K44.9] Order(s):XR ESOPHAGRAM [[id number]] Order #: [id number] FUTURE Prescriptions as of 11/24/2024 - multivitamin (MULTIPLE VITAMINS) tablet Take 1 tablet by mouth once daily. - diclofenac, EC, (VOLTAREN) 75 mg EC tablet Take 1 tablet by mouth twice daily. - Omeprazole 40 mg capsule Take 1 capsule by mouth twice daily. - ferrous sulfate 325 mg (65 mg iron) tablet Take 1 tablet by mouth twice daily. - cholecalciferol (VITAMIN D-3) 5,000 unit tab Take 1 tablet by mouth once daily. - qkhuluv-tsemqppds-qnc dunaway D3 (CALCIUM 500+D) 500 mg(1,250mg) -200 unit per tablet Take 1 tablet by mouth once daily. - Ibuprofen 200 mg cap (more content not included)... [facility] ([id number]) 1975 F Date Time Provider Department 11/24/24 MERLIN ARDON During your visit today, we recorded the following information about you: Sania Hollyria 11/24/2024 2:15 PM Signed Attempt #1 Requested Medical Records from the office of Dr. Cabrera Jones Spoke to: Jacki Phone #: [phone] Fax #: [phone] Jacki agreed to fax the last office note Renae [place] November 24, 2024 2:12 PM Richa Elliott Renae 11/24/2024 4:06 PM Signed Received outside office note (scanned) to [facility]. Renae Chaudhry Supportive Employment Case Manager Allergies As of Date: 11/24/2024 (No Known Allergies) Date Reviewed: 10/08/2019 Reviewed by: Darya Tony (Sara) - Fully Assessed Reason for Visit: Request Outside Medical Records [[id number]] Received Outside Medical Records [[id number]] Prescriptions as of 11/24/2024 - multivitamin (MULTIPLE VITAMINS) tablet Take 1 tablet by mouth once daily. - diclofenac, EC, (VOLTAREN) 75 mg EC tablet Take 1 tablet by mouth twice daily. - Omeprazole 40 mg capsule Take 1 capsule by mouth twice daily. - ferrous sulfate 325 mg (65 mg iron) tablet Take 1 tablet by mouth twice daily. - cholecalciferol (VITAMIN D-3) 5,000 unit tab Take 1 tablet by mouth once daily. - obxwsfc-lbalqfpui-fcf dunaway D3 (CALCIUM 500+D) 500 mg(1,250mg) -200 unit per tablet Take 1 tablet by mouth once daily. - Ibuprofen 200 mg cap Take 1-2 capsules by mouth as needed (for pain). Problem List As Of Date: 11/24/2024 (None) Encounter Status:Closed by RICHA ELLIOTTSANIARENAE [facility] ([id number]) 1975 F Date Time Provider Department 11/24/24 MERLIN ARDON During your visit today, we recorded the following information about you: Earl Brar 11/24/2024 11:33 AM Signed .RECEIVED CALL FROM: Patient PATIENT INFORMATION: Name: Kiya Bhat : 1975 (home) [phone] (cell) Email: [email or web address] Referring Provider: No referring provider defined for this encounter. Phone: N/A Fax: Requested Surgeon: Merlin Ardon M.D., Ph.D. Reason for appointment/diagnosis : Diaphragmatic hernia without obstruction and without gangrene Earl Brar November 24, 2024 11:32 AM Allergies As of Date: 11/24/2024 (No Known Allergies) Date Reviewed: 10/08/2019 Reviewed by: Darya Tony (Ut) - Fully Assessed Reason for Visit: Appointment [186] Prescriptions as of 11/24/2024 - multivitamin (MULTIPLE VITAMINS) tablet Take 1 tablet by mouth once daily. - diclofenac, EC, (VOLTAREN) 75 mg EC tablet Take 1 tablet by mouth twice daily. - Omeprazole 40 mg capsule Take 1 capsule by mouth twice daily. - ferrous sulfate 325 mg (65 mg iron) tablet Take 1 tablet by mouth twice daily. - cholecalciferol (VITAMIN D-3) 5,000 unit tab Take 1 tablet by mouth once daily. - yrdzxnt-ywnubwoea-whq dunaway D3 (CALCIUM 500+D) 500 mg(1,250mg) -200 unit per tablet Take 1 tablet by mouth once daily. - Ibuprofen 200 mg cap Take 1-2 capsules by mouth as needed (for pain). Problem List As Of Date: 11/24/2024 (None) Encounter Status:Closed by EARL BRAR on 11/24/24 Normal [facility] Covid-19 PCR (CVD[facility])on 04-28 SARS-CoV-2 (COVID-19) RNA SUKHWINDER+probe Ql (Unsp spec) Not detected Normal NOT DETECTED [facility] Comment on above: Result Comment: This test is not yet approved or cleared by the [place] FDA. When there are no FDA-approved or cleared tests available, and other criteria are met, FDA can make tests available under an emergency access mechanism called an Emergency Use Authorization (EUA). The EUA for this test is supported by the [place] of Health and Human Service's (HHS's) declaration [...] #### C MP, BNP, TSH, HSTROPN #### [facility] [address] [place] [address] Dr. Emily Hercules Facesheeton 03-02-2022 Facesheet [id number] .[id number]:127 Normal [facility] Physician Referralon 022 Physician Referral [id number]. 00CD:127 Normal [facility]30 SARS-CoV-2 (COVID-19) RNA SUKHWINDER+probe Ql (Unsp spec) Not detected Normal NOT DETECTED [facility] Comment on above: Result Comment: This test is not yet approved or cleared by the [place] FDA. When there are no FDA-approved or cleared tests available, and other criteria are met, FDA can make tests available under an emergency access mechanism called an Emergency Use Authorization (EUA). The EUA for this test is supported by the [place] of Health and Human Service's (HHS's) declaration [...] consistent with SARS-CoV-2. Performed By: #### [facility] #### [facility] [address] [place] [address] Dr. Emily Hercules MG MAMM SCREEN 3D SHELLY CADon 09-15-2021 MG MAMM SCREEN 3D SHELLY CAD Patient: KIYA BHAT Exam Date: 09/15/2021 : 1975 Gender:F Ordering : DR CABRERA JONES . Admission #: [id number] Family : Order #: [id number] CLICK HERE TO VIEW EXAM RADIOLOGY REPORT PROCEDURE: MAMMOGRAM SCREENING 3D BILATERAL CAD COMPARISON: None. INDICATIONS: Screening mammography Calculator Name NCI Breast Cancer Risk Assessment Tool 5 Year Breast Cancer Risk 0.70% Lifetime Breast Cancer Risk 6.70% Personal Breast Cancer No Personal Ovarian Cancer No Treatments None Family Cancers Grandmother-maternal with leukemia cancer at age 38. LOCATION: [facility] BREAST COMPOSITION: Scattered areas fibroglandular density. FINDINGS: [...] Serna MD on 09/15/2021 at 11:59 Normal [facility] FSHon 09-03-2021 FSH 8.8 mIU/mL Normal [facility] Comment on above: Result Comment: Adul t Female: Follicular phase 3.5 - 12.5 Ovulation phase 4.7 - 21.5 Luteal phase 1.7 - 7.7 Postmenopausal 25.8 - 134.8 Performed By: #### [facility] #### [facility] [address] [place] [address] Dr. Emily Hercules INSULINon 09-03-2021 Insulin 19.4 uIU/mL Normal 2.6-24.9 [facility] Comment on above: Performed By: #### C MP, BNP, TSH, HSTROPN #### [facility] [address] [place] [address] Dr. Emily Hercules CBC AUTO DIFFon 09-02-2021 BASO # 0.1 103/ul Normal 0.0-0.1 [facility] Comment on above: Performed By: #### C BC #### [facility] [address] [place] [address] Dr. Emily Hercules Basophils/100 WBC (Bld) 0.7 % Normal 0.2-2.0 [facility] Comment on above: Performed By: #### C BC #### [facility] [address] [place] [address] Dr. Emily Hercules EO # 0.3 103/ul Normal 0.0-0.7 [facility] Comment on above: Performed By: #### C BC #### [facility] [address] [place] [address] Dr. Emily Hercules Eosinophils/100 WBC (Bld) 3.8 % Normal 0.9-7.0 [facility] Comment on above: Performed By: #### C BC #### [facility] [address] [place] [address] Dr. Emily Hercules Erythrocyte distribution width (RBC) [Ratio] 13.6 % Normal 11.0-15.0 [facility] Comment on above: Performed By: #### C BC #### [facility] [address] [place] [address] Dr. Emily Hercules Hematocrit (Bld) [Volume fraction] 42.6 % Normal 36.0-48.0 [facility] Comment on above: Performed By: #### C BC #### [facility] [address] [place] [address] Dr. Emily Hercules Hemoglobin (Bld) [Mass/Vol] 14.5 g/dL Normal 12.0-16.0 [facility] Comment on above: Performed By: #### C BC #### [facility] [address] [place] [address] Dr. Emily Hercules IG # 0.08 10e3/ul Critically high 0.00-0.03 [facility] Comment on above: Performed By: #### C BC #### [facility] [address] [place] [address] Dr. Emily Hercules IG % 1.0 % Critically high 0.0-0.5 [facility] Comment on above: Performed By: #### C BC #### [facility] [address] [place] [address] Dr. Emily Hercules LYMPH # 2.2 103/ul Normal 1.2-3.8 [facility] Comment on above: Performed By: #### C BC #### [facility] [address] [place] [address] Dr. Emily Hercules Lymphocytes/100 WBC (Bld) 27.4 % Normal 20.5-60.0 [facility] Comment on above: Performed By: #### C BC #### [facility] [address] [place] [address] Dr. Emily Hercules MANUAL DIFF REQ NO Normal [facility] Comment on above: Performed By: #### C BC #### [facility] [address] [place] [address] Dr. Emily Hercules MCH (RBC) [Entitic mass] 30.2 pg Normal 26.7-34.0 [facility] Comment on above: Performed By: #### C BC #### [facility] [address] [place] [address] Dr. Emily Hercules MCHC (RBC) [Mass/Vol] 34.0 g/dL Normal 29.9-35.2 [facility] Comment on above: Performed By: #### C BC #### [facility] [address] [place] [address] Dr. Emily Hercules MCV (RBC) [Entitic vol] 88.8 fL Normal 81.0-99.0 [facility] Comment on above: Performed By: #### C BC #### [facility] [address] [address] [address] Emily Hercules MONO # 0.5 103/ul Normal 0.3-0.8 [facility] Comment on above: Performed By: #### C BC #### [facility] [address] [address] [address] Emily Hercules Monocytes/100 WBC (Bld) 6.2 % Normal 1.7-12.0 [facility] Comment on above: Performed By: #### C BC #### [facility] [address] [address] [address] Emily Hercules NEUT # 4.9 103/ul Normal 1.4-6.5 [facility] Comment on above: Performed By: #### C BC #### [facility] [address] [place] [address] Dr. Emily Hercules Neutrophils/100 WBC (Bld) 60.9 % Normal 43.0-75.0 [facility] Comment on above: Performed By: #### C BC #### [facility] [address] [place] [address] Dr. Emily Hercules Platelet mean volume (Bld) [Entitic vol] 11.6 fL Normal 9.5-13.5 [facility] Comment on above: Performed By: #### C BC #### [facility] [address] [place] [address] Dr. Emily Hercules PLT 180 103/ul Normal 150-450 [facility] Comment on above: Performed By: #### C BC #### [facility] [address] [place] [address] Dr. Emily Hercules RBC 4.80 106/ul Normal 4.20-5.40 [facility] Comment on above: Performed By: #### C BC #### [facility] [address] [place] [address] Dr. Emily Hercules WBC 8.1 103/ul Normal 4.0-11.0 [facility] Comment on above: Performed By: #### C BC #### [facility] [address] [address] [address] Emily Hercules FREE THYROXINE INDEX T7on FTI 3.47 Normal [facility] Comment on above: Performed By: #### T 7, CMP, LIPID, TSH #### [facility] [address] [address] [address] Emily Hercules T3U 35.0 % Normal 23.5-40.5 [facility] Comment on above: Performed By: #### T 7, CMP, LIPID, TSH #### [facility] [address] [address] [address] Emily Hercules T4 [Mass/Vol] 9.90 ug/dL Normal 5.53-11.00 [facility] Comment on above: Performed By: #### T 7, CMP, LIPID, TSH #### [facility] [address] [place] [address] Dr. Emily Hercules GLYCOHEMOGLOBIN A1Con 2020 ADA RECOMMENDATION ADA THERAPEUTIC TARGET 6.0 - 7.0 ACTION SUGGESTED > 7.0 Normal [facility] Comment on above: Performed By: #### C MP, BNP, TSH, HSTROPN #### [facility] [address] [address] [address] Emily Hercules Glucose [Mass/Vol] 114 mg/dL Normal [facility] Comment on above: Performed By: #### C MP, BNP, TSH, HSTROPN #### [facility] [address] [place] [address] Dr. Emily Hercules HbA1c (Bld) [Mass fraction] 5.6 % Normal <=6.0 [facility] Comment on above: Performed By: #### C MP, BNP, TSH, HSTROPN #### [facility] [address] [place] [address] Dr. Emily Hercules IRONon 09-02-2021 Iron [Mass/Vol] 111.0 ug/dL Normal 37.0-170.0 [facility] Comment on above: Performed By: #### C MP, BNP, TSH, HSTROPN #### [facility] [address] [address] [address] Emily Hercules LIPID PROFILEon 09-02-2021 CHOL-HDL RATIO NORM SEE BELOW Normal [facility] Comment on above: Result Comment: 3.3 - 4.4 LOW RISK 4.4 - 7.1 AVERAGE RISK 7.1 - 11.0 MODERATE RISK >11.0 HIGH RISK Performed By: #### C MP, BNP, TSH, HSTROPN #### [facility] [address] [address] [address] Emily Hercules Cholesterol [Mass/Vol] 183 mg/dL Normal <=200 [facility] Comment on above: Performed By: #### C MP, BNP, TSH, HSTROPN #### [facility] [address] [address] [address] Emily Hercules Cholesterol in HDL [Mass/Vol] 43 mg/dL Normal [facility] Comment on above: Performed By: #### C MP, BNP, TSH, HSTROPN #### [facility] [address] [address] [address] Emily Hercules Cholesterol in LDL [Mass/Vol] 109.0 mg/dL Normal [facility] Comment on above: Performed By: #### C MP, BNP, TSH, HSTROPN #### [facility] [address] [place] [address] Dr. Emily Hercules Cholesterol.total/Ch olesterol in HDL [Mass ratio] 4.3 {ratio} Normal [facility] Comment on above: Performed By: #### C MP, BNP, TSH, HSTROPN #### [facility] [address] [address] [address] Emily Hercules HDL NORMAL > or = 60 mg/dl - LO W CARDIOVASCULAR RISK <40 mg/dl - HIGH CARDIOVASCULAR RISK Normal [facility] Comment on above: Performed By: #### C MP, BNP, TSH, HSTROPN #### [facility] [address] [address] [address] Emily Hercules LDL CALC NORMAL SEE BELOW Normal [facility] Comment on above: Result Comment: <100 mg/dl OPTIMAL 100 - 129 mg/dl NEAR OR ABOVE OPTIMAL 130 - 159 mg/dl BORDERLINE HIGH 160 - 189 mg/dl HIGH >190 mg/dl VERY HIGH Performed By: #### C MP, BNP, TSH, HSTROPN #### [facility] [address] [address] [address] Emily Hercules Triglyceride [Mass/Vol] 155 mg/dL Critically high <=150 [facility] Comment on above: Performed By: #### C MP, BNP, TSH, HSTROPN #### [facility] [address] [address] [address] Emily Hercules VLDL CALC 31.0 mg/dL Normal [facility] Comment on above: Performed By: #### C MP, BNP, TSH, HSTROPN #### [facility] [address] [address] [address] Emily Hercules PROF 14(COMP METB)on 021 Albumin [Mass/Vol] 3.8 g/dL Normal 3.5-5.0 [facility] Comment on above: Performed By: #### T 7, CMP, LIPID, TSH #### [facility] [address] [address] [address] Emily Hercules Albumin/Globulin [Mass ratio] 1.1 {ratio} Normal [facility] Comment on above: Performed By: #### T 7, CMP, LIPID, TSH #### [facility] [address] [address] [address] Emily Hercules ALP [Catalytic activity/Vol] 57 U/L Normal 38-126 [facility] Comment on above: Performed By: #### T 7, CMP, LIPID, TSH #### [facility] [address] [address] [address] Emily Hercules ALT [Catalytic activity/Vol] 57 U/L Critically high 9-52 [facility] Comment on above: Performed By: #### T 7, CMP, LIPID, TSH #### [facility] [address] [address] [address] Emily Hercules Anion gap [Moles/Vol] 11.7 mmol/L Normal [facility] Comment on above: Performed By: #### T 7, CMP, LIPID, TSH #### [facility] [address] [address] [address] Emily Hercules AST [Catalytic activity/Vol] 35 U/L Normal 14-36 [facility] Comment on above: Performed By: #### T 7, CMP, LIPID, TSH #### [facility] [address] [address] [address] Emily Hercules Bilirubin [Mass/Vol] 0.7 mg/dL Normal 0.2-1.3 [facility] Comment on above: Performed By: #### T 7, CMP, LIPID, TSH #### [facility] [address] [address] [address] Emily Hercules Calcium [Mass/Vol] 8.8 mg/dL Normal 8.4-10.2 [facility] Comment on above: Performed By: #### T 7, CMP, LIPID, TSH #### [facility] [address] [address] [address] Emily Hercules Chloride [Moles/Vol] 105 mmol/L Normal 98-107 [facility] Comment on above: Performed By: #### T 7, CMP, LIPID, TSH #### [facility] [address] [place] [address] Dr. Emily Hercules CO2 [Moles/Vol] 26.1 mmol/L Normal 22.0-30.0 [facility] Comment on above: Performed By: #### T 7, CMP, LIPID, TSH #### [facility] [address] [address] [address] Emily Hercules Creatinine [Mass/Vol] 1.34 mg/dL Critically high 0.52-1.04 [facility] Comment on above: Performed By: #### T 7, CMP, LIPID, TSH #### [facility] [address] [place] [address] Dr. Emily Hercules EGFR-AF EQUATORIAL GUINEAN 51 mL/min/1.73m2 Critically low >=60 [facility] Comment on above: Performed By: #### T 7, CMP, LIPID, TSH #### [facility] [address] [address] [address] Emily Hercules EGFR-NON AF EQUATORIAL GUINEAN 42 mL/min/1.73m2 Critically low >=60 [facility] Comment on above: Performed By: #### T 7, CMP, LIPID, TSH #### [facility] [address] [address] [address] Emily Hercules Globulin (S) [Mass/Vol] 3.4 g/dL Normal [facility] Comment on above: Performed By: #### T 7, CMP, LIPID, TSH #### [facility] [address] [address] [address] Emily Hercules Glucose [Mass/Vol] 92 mg/dL Normal 74-106 [facility] Comment on above: Performed By: #### T 7, CMP, LIPID, TSH #### [facility] [address] [address] [address] Emily Hercules Potassium [Moles/Vol] 3.8 mmol/L Normal 3.4-5.0 [facility] Comment on above: Performed By: #### T 7, CMP, LIPID, TSH #### [facility] [address] [address] [address] Emily Hercules Protein [Mass/Vol] 7.2 g/dL Normal 6.1-8.2 [facility] Comment on above: Performed By: #### T 7, CMP, LIPID, TSH #### [facility] [address] [address] [address] Emily Hercules Sodium [Moles/Vol] 139 mmol/L Normal 137-145 [facility] Comment on above: Performed By: #### T 7, CMP, LIPID, TSH #### [facility] [address] [address] [address] Emily Hercules Urea nitrogen [Mass/Vol] 21.0 mg/dL Critically high 7.0-17.0 [facility] Comment on above: Performed By: #### T 7, CMP, LIPID, TSH #### [facility] [address] [address] [address] Emily Hercules Urea nitrogen/Creatinine [Mass ratio] 15.7 mg/mg Normal [facility] Comment on above: Performed By: #### T 7, CMP, LIPID, TSH #### [facility] [address] [place] [address] Dr. Emily Hercules TSHon 09-02-2021 TSH 1.130 uIU/mL Normal 0.470-4.680 [facility] Comment on above: Performed By: #### T 7, CMP, LIPID, TSH #### [facility] [address] [place] [address] Dr. Emily Hercules TSH RANGE SEE BELOW Normal [facility] Comment on above: Result Comment: <0.3 4 UIU/ml HYPERTHYROID 0.34-5.60 UIU/ml EUTHYROID >5.60 UIU/ml HYPOTHYROID Performed By: #### T 7, CMP, LIPID, TSH #### [facility] [address] [place] [address] Dr. Emily Hercules BNPon 08-24-2021 Natriuretic peptide B (Bld) [Mass/Vol] 98.0 pg/mL Normal <=450.0 [facility] Comment on above: Performed By: #### C MP, BNP, TSH, HSTROPN #### [facility] [address] [place] [address] Dr. Emily Hercules CBC AUTO DIFFon 08-24-2021 BASO # 0.0 103/ul Normal 0.0-0.1 [facility] Comment on above: Performed By: #### C MP, BNP, TSH, HSTROPN #### [facility] [address] [place] [address] Dr. Emily Hercules Basophils/100 WBC (Bld) 0.6 % Normal 0.2-2.0 [facility] Comment on above: Performed By: #### C MP, BNP, TSH, HSTROPN #### [facility] [address] [place] [address] Dr. Emily Hercules EO # 0.3 103/ul Normal 0.0-0.7 [facility] Comment on above: Performed By: #### C MP, BNP, TSH, HSTROPN #### [facility] [address] [place] [address] Dr. Emily Hercules Eosinophils/100 WBC (Bld) 4.1 % Normal 0.9-7.0 [facility] Comment on above: Performed By: #### C MP, BNP, TSH, HSTROPN #### [facility] [address] [place] [address] Dr. Emily Hercules Erythrocyte distribution width (RBC) [Ratio] 13.6 % Normal 11.0-15.0 [facility] Comment on above: Performed By: #### C MP, BNP, TSH, HSTROPN #### [facility] [address] [place] [address] Dr. Emily Hercules Hematocrit (Bld) [Volume fraction] 39.4 % Normal 36.0-48.0 [facility] Comment on above: Performed By: #### C MP, BNP, TSH, HSTROPN #### [facility] [address] [place] [address] Dr. Emily Hercules Hemoglobin (Bld) [Mass/Vol] 13.4 g/dL Normal 12.0-16.0 [facility] Comment on above: Performed By: #### C MP, BNP, TSH, HSTROPN #### [facility] [address] [place] [address] Dr. Emily Hercules IG # 0.02 10e3/ul Normal 0.00-0.03 [facility] Comment on above: Performed By: #### C MP, BNP, TSH, HSTROPN #### [facility] [address] [place] [address] Dr. Emily Hercules IG % 0.3 % Normal 0.0-0.5 [facility] Comment on above: Performed By: #### C MP, BNP, TSH, HSTROPN #### [facility] [address] [place] [address] Dr. Emily Hercules LYMPH # 1.8 103/ul Normal 1.2-3.8 [facility] Comment on above: Performed By: #### C MP, BNP, TSH, HSTROPN #### [facility] [address] [place] [address] Dr. Emily Hercules Lymphocytes/100 WBC (Bld) 25.9 % Normal 20.5-60.0 [facility] Comment on above: Performed By: #### C MP, BNP, TSH, HSTROPN #### [facility] [address] [place] [address] Dr. Emily Hercules MANUAL DIFF REQ NO Normal [facility] Comment on above: Performed By: #### C MP, BNP, TSH, HSTROPN #### [facility] [address] [place] [address] Dr. Emily Hercules MCH (RBC) [Entitic mass] 29.9 pg Normal 26.7-34.0 [facility] Comment on above: Performed By: #### C MP, BNP, TSH, HSTROPN #### [facility] [address] [place] [address] Dr. Emily Herclues MCHC (RBC) [Mass/Vol] 34.0 g/dL Normal 29.9-35.2 [facility] Comment on above: Performed By: #### C MP, BNP, TSH, HSTROPN #### [facility] [address] [place] [address] Dr. Emily Hercules MCV (RBC) [Entitic vol] 87.9 fL Normal 81.0-99.0 [facility] Comment on above: Performed By: #### C MP, BNP, TSH, HSTROPN #### [facility] [address] [place] [address] Dr. Emily Hercules MONO # 0.4 103/ul Normal 0.3-0.8 [facility] Comment on above: Performed By: #### C MP, BNP, TSH, HSTROPN #### [facility] [address] [place] [address] Dr. Emily Hercules Monocytes/100 WBC (Bld) 5.8 % Normal 1.7-12.0 [facility] Comment on above: Performed By: #### C MP, BNP, TSH, HSTROPN #### [facility] [address] [place] [address] Dr. Emily Hercules NEUT # 4.4 103/ul Normal 1.4-6.5 [facility] Comment on above: Performed By: #### C MP, BNP, TSH, HSTROPN #### [facility] [address] [address] [address] Emily Hercules Neutrophils/100 WBC (Bld) 63.3 % Normal 43.0-75.0 [facility] Comment on above: Performed By: #### C MP, BNP, TSH, HSTROPN #### [facility] [address] [address] [address] Emily Hercules Platelet mean volume (Bld) [Entitic vol] 11.7 fL Normal 9.5-13.5 [facility] Comment on above: Performed By: #### C MP, BNP, TSH, HSTROPN #### [facility] [address] [address] [address] Emily Hercules PLT 122 103/ul Critically low 150-450 [facility] Comment on above: Performed By: #### C MP, BNP, TSH, HSTROPN #### [facility] [address] [address] [address] Emily Hercules RBC 4.48 106/ul Normal 4.20-5.40 [facility] Comment on above: Performed By: #### C MP, BNP, TSH, HSTROPN #### [facility] [address] [address] [address] Emily Hercules WBC 6.9 103/ul Normal 4.0-11.0 [facility] Comment on above: Performed By: #### C MP, BNP, TSH, HSTROPN #### [facility] [address] [place] [address] Dr. Emily Hercules CTA CHEST WO W [...] NATY BALDERRAMA Date: 2021-08-24 17:14 Normal [facility] Covid-19 PCR (CVDTBH)on 07-30 SARS-CoV-2 (COVID-19) RNA SUKHWINDER+probe Ql (Unsp spec) Not detected Normal NOT DETECTED [facility] Comment on above: Result Comment: This test is not yet approved or cleared by the [place] FDA. When there are no FDA-approved or cleared tests available, and other criteria are met, FDA can make tests available under an emergency access mechanism called an Emergency Use Authorization (EUA). The EUA for this test is supported by the [place] of Health and Human Service's (HHS's) declaration [...] #### C MP, BNP, TSH, HSTROPN #### [facility] [address] [place] [address] Dr. Emily Hercules LACTATE/LACTIC ACIDon 2020 Lactate [Moles/Vol] 0.5 mmol/L Critically low 0.7-2.0 [facility] Comment on above: Performed By: #### C MP, BNP, TSH, HSTROPN #### [facility] [address] [place] [address] Dr. Emily Hercules PROF 14(COMP METB)on 021 Albumin [Mass/Vol] 3.7 g/dL Normal 3.5-5.0 [facility] Comment on above: Performed By: #### C MP, BNP, TSH, HSTROPN #### [facility] [address] [place] [address] Dr. Emily Hercules Albumin/Globulin [Mass ratio] 1.0 {ratio} Normal [facility] Comment on above: Performed By: #### C MP, BNP, TSH, HSTROPN #### [facility] [address] [place] [address] Dr. Emily Hercules ALP [Catalytic activity/Vol] 63 U/L Normal 38-126 [facility] Comment on above: Performed By: #### C MP, BNP, TSH, HSTROPN #### [facility] [address] [place] [address] Dr. Emily Hercules ALT [Catalytic activity/Vol] 66 U/L Critically high 9-52 [facility] Comment on above: Performed By: #### C MP, BNP, TSH, HSTROPN #### [facility] [address] [place] [address] Dr. Emily Hercules Anion gap [Moles/Vol] 12.3 mmol/L Normal [facility] Comment on above: Performed By: #### C MP, BNP, TSH, HSTROPN #### [facility] [address] [place] [address] Dr. Emily Hercules AST [Catalytic activity/Vol] 48 U/L Critically high 14-36 [facility] Comment on above: Performed By: #### C MP, BNP, TSH, HSTROPN #### [facility] [address] [place] [address] Dr. Emily Hercules Bilirubin [Mass/Vol] 0.6 mg/dL Normal 0.2-1.3 [facility] Comment on above: Performed By: #### C MP, BNP, TSH, HSTROPN #### [facility] [address] [place] [address] Dr. Emily Hercules Calcium [Mass/Vol] 9.2 mg/dL Normal 8.4-10.2 [facility] Comment on above: Performed By: #### C MP, BNP, TSH, HSTROPN #### [facility] [address] [place] [address] Dr. Emily Hercules Chloride [Moles/Vol] 103 mmol/L Normal 98-107 [facility] Comment on above: Performed By: #### C MP, BNP, TSH, HSTROPN #### [facility] [address] [place] [address] Dr. Emily Hrecules CO2 [Moles/Vol] 25.2 mmol/L Normal 22.0-30.0 [facility] Comment on above: Performed By: #### C MP, BNP, TSH, HSTROPN #### [facility] [address] [place] [address] Dr. Emily Hercules Creatinine [Mass/Vol] 1.49 mg/dL Critically high 0.52-1.04 [facility] Comment on above: Performed By: #### C MP, BNP, TSH, HSTROPN #### [facility] [address] [address] [address] Emily Hercules EGFR-AF EQUATORIAL GUINEAN 45 mL/min/1.73m2 Critically low >=60 [facility] Comment on above: Performed By: #### C MP, BNP, TSH, HSTROPN #### [facility] [address] [address] [address] Emily Hercules EGFR-NON AF EQUATORIAL GUINEAN 37 mL/min/1.73m2 Critically low >=60 [facility] Comment on above: Performed By: #### C MP, BNP, TSH, HSTROPN #### [facility] [address] [address] [address] Emily Hercules Globulin (S) [Mass/Vol] 3.6 g/dL Normal [facility] Comment on above: Performed By: #### C MP, BNP, TSH, HSTROPN #### [facility] [address] [place] [address] Dr. Emily Hercules Glucose [Mass/Vol] 100 mg/dL Normal 74-106 [facility] Comment on above: Performed By: #### C MP, BNP, TSH, HSTROPN #### [facility] [address] [place] [address] Dr. Emily Hercules Potassium [Moles/Vol] 4.5 mmol/L Normal 3.4-5.0 [facility] Comment on above: Performed By: #### C MP, BNP, TSH, HSTROPN #### [facility] [address] [place] [address] Dr. Emily Hercules Protein [Mass/Vol] 7.3 g/dL Normal 6.1-8.2 [facility] Comment on above: Performed By: #### C MP, BNP, TSH, HSTROPN #### [facility] [address] [place] [address] Dr. Emily Hercules Sodium [Moles/Vol] 136 mmol/L Critically low 137-145 [facility] Comment on above: Performed By: #### C MP, BNP, TSH, HSTROPN #### [facility] [address] [place] [address] Dr. Emily Hercules Urea nitrogen [Mass/Vol] 22.0 mg/dL Critically high 7.0-17.0 [facility] Comment on above: Performed By: #### C MP, BNP, TSH, HSTROPN #### [facility] [address] [place] [address] Dr. Emily Hercules Urea nitrogen/Creatinine [Mass ratio] 14.8 mg/mg Normal [facility] Comment on above: Performed By: #### C MP, BNP, TSH, HSTROPN #### [facility] [address] [place] [address] Dr. Emily Hercules PROTIMEon 08-24-2021 INR Coag (PPP) [Relative time] 1.08 {INR} Normal [facility] Comment on above: Performed By: #### C MP, BNP, TSH, HSTROPN #### [facility] [address] [place] [address] Dr. Emily Hercules INR GUIDELINES SEE BELOW Normal [facility] Comment on above: Result Comment: GUILLERMO RED INR: 2.0 - 3.0 CONDITIONS NOT LISTED BELOW 2.5 - 3.5 FOR PROSTHETIC HEART VALVE REPLACEMENT 2.5 - 3.5 RECURRENT THROMBOSIS Performed By: #### C MP, BNP, TSH, HSTROPN #### [facility] [address] [place] [address] Dr. Emily Hercules PT Coag (PPP) [Time] 11.6 s Normal 9.0-11.6 [facility] Comment on above: Performed By: #### C MP, BNP, TSH, HSTROPN #### [facility] [address] [place] [address] Dr. Emily Hercules PTTon 08-24-2021 aPTT Coag (Bld) [Time] 29.6 s Normal 22.3-36.2 [facility] Comment on above: Performed By: #### C MP, BNP, TSH, HSTROPN #### [facility] [address] [place] [address] Dr. Emily Hercules TROPONIN, HIGH SENSITIVITYon 08-24-2021 HSTROP 4.9 pg/mL Normal 4.0-35.5 [facility] Comment on above: Result Comment: CUT- OFF POINTS HAVE BEEN ESTABLISHED BASED ON THE FOURTH UNIVERSAL DEFINITIONS OF MYOCARDIAL INFARCTION. THE UPPER REFERENCE LIMIT (URL) OF TROPONIN, DEFINED THE 99TH PERCENTILE OF cTnI DISTRIBUTION IN A REFERENCE POPULATION, HAS BEEN CONFIRMED THE DECISION THRESHOLD FOR SC DIAGNOSIS. Performed By: #### C MP, BNP, TSH, HSTROPN #### [facility] [address] [address] [address] Emily Hercules HSTROP 7.0 pg/mL Normal 4.0-35.5 [facility] Comment on above: Result Comment: CUT- OFF POINTS HAVE BEEN ESTABLISHED BASED ON THE FOURTH UNIVERSAL DEFINITIONS OF MYOCARDIAL INFARCTION. THE UPPER REFERENCE LIMIT (URL) OF TROPONIN, DEFINED THE 99TH PERCENTILE OF cTnI DISTRIBUTION IN A REFERENCE POPULATION, HAS BEEN CONFIRMED THE DECISION THRESHOLD FOR SC DIAGNOSIS. Performed By: #### C MP, BNP, TSH, HSTROPN #### [facility] [address] [address] [address] Emily Hercules TSHon 08-24-2021 TSH 1.614 uIU/mL Normal 0.470-4.680 [facility] Comment on above: Performed By: #### C MP, BNP, TSH, HSTROPN #### [facility] [address] [address] [address] Emily Hercules TSH RANGE SEE BELOW Normal [facility] Comment on above: Result Comment: <0.3 4 UIU/ml HYPERTHYROID 0.34-5.60 UIU/ml EUTHYROID >5.60 UIU/ml HYPOTHYROID Performed By: #### C MP, BNP, TSH, HSTROPN #### [facility] [address] [address] [address] Emily Hercules US KARINE DOP LEG [...] by: MARCIAL BOB Date: 2021-08-24 16:22 Normal [facility] Test (Serum)on Test, Serum Negative Normal [facility] Comment on above: Performed By: #### 3 [id number] ####[facility] [address] [place] [address] CBC With Differentialon 04-28 Basophils Auto #/vol (Bld) 0.06 10*3/uL Normal 0.01-0.07 [facility] Comment on above: Performed By: #### 2 [id number] ####[facility] [address] [place] [address] Basophils/100 WBC Auto (Bld) 0.7 % Normal 0.1-1.2 [facility] Comment on above: Performed By: #### 2 [id number] ####[facility] [address] [place] [address] Eosinophils 0.51 10*3/uL High 0.04-0.50 [facility] Comment on above: Performed By: #### 2 [id number] ####[facility] [address] [place] [address] Eosinophils/100 leukocytes 6.1 % Normal 0.0-8.1 [facility] Comment on above: Performed By: #### 2 [id number] ####[facility] [address] [place] [address] Erythrocyte distribution width Auto Ratio (RBC) 13.2 % Normal 12.0-15.4 [facility] Comment on above: Performed By: #### 2 [id number] ####[facility] [address] [place] [address] Erythrocytes (RBC) 4.67 10*6/uL Normal 3.85-5.10 [facility] Comment on above: Performed By: #### 2 [id number] ####[facility] [address] [place] [address] Erythrocytes (RBC) 0.0 /100{WBCs} Normal [facility] Comment on above: Performed By: #### 2 [id number] ####[facility] [address] [place] [address] Erythrocytes (RBC) 0.00 10*3/uL Normal [facility] Comment on above: Performed By: #### 2 [id number] ####[facility] [address] [place] [address] Hematocrit (HCT) 40.8 % Normal 36.5-46.6 [facility] Comment on above: Performed By: #### 2 [id number] ####[facility] [address] [place] [address] Hemoglobin mass conc (Bld) 13.6 g/dL Normal 11.8-15.3 [facility] Comment on above: Performed By: #### 2 [id number] ####[facility] [address] [place] [address] Imm Grans Absolute 0.02 10*3/uL Normal 0.00-0.21 [facility] Comment on above: Performed By: #### 2 [id number] ####[facility] [address] [facility] [place] [address] Immature granulocytes #/vol (Bld) 0.2 % Normal [facility] Comment on above: Performed By: #### 2 [id number] ####[facility] [address] [place] [address] Lymphocytes 2.15 10*3/uL Normal 0.40-2.84 [facility] Comment on above: Performed By: #### 2 [id number] ####[facility] [address] [place] [address] Lymphocytes/100 leukocytes 25.8 % Normal 15.7-50.5 [facility] Comment on above: Performed By: #### 2 [id number] ####[facility] [address] [place] [address] MCH 29.1 pg Normal 27.5-33.0 [facility] Comment on above: Performed By: #### 2 [id number] ####[facility] [address] [place] [address] MCHC mass conc (RBC) 33.3 g/dL Normal 30.1-35.0 [facility] Comment on above: Performed By: #### 2 [id number] ####[facility] [address] [place] [address] MCV 87.4 fL Normal 85.4-100.0 [facility] Comment on above: Performed By: #### 2 [id number] ####[facility] [address] [place] [address] Monocytes 0.57 10*3/uL Normal 0.25-0.83 [facility] re Comment on above: Performed By: #### 2 [id number] ####[facility] [address] [place] [address] Monocytes/100 leukocytes 6.9 % Normal 4.8-12.7 [facility] Comment on above: Performed By: #### 2 [id number] ####[facility] [address] [facility] [place] [address] Neutrophils 5.01 10*3/uL Normal 1.95-6.85 [facility] are Comment on above: Performed By: #### 2 [id number] ####[facility] [address] [facility] [place] [address] Neutrophils/100 leukocytes 60.3 % Normal 36.8-73.2 [facility] Comment on above: Performed By: #### 2 [id number] ####[facility] [address] [facility] [place] [address] Platelet mean volume (PMV) 12.0 fL Normal 9.9-12.1 [facility] Comment on above: Performed By: #### 2 [id number] ####[facility] [address] [place] [address] Platelets 207 10*3/uL Normal 155-404 [facility] Comment on above: Performed By: #### 2 [id number] ####[facility] [address] [place] [address] RDW SD 42.2 fL Normal 39.3-48.6 [facility] Comment on above: Performed By: #### 2 [id number] ####[facility] [address] [place] [address] WBC (Leukocytes) 8.3 10*3/uL Normal 4.4-9.9 [facility] Comment on above: Performed By: #### 2 [id number] ####[facility] [address] [place] [address] Partial Thromboplastin Timeo n 05-10-2017 aPTT 28.4 s Normal 22.1-35.3 [facility] Comment on above: Result Comment: Luis allen note new Heparin Therapeutic range effective 02/14/17.Heparin Therapeutic Range: 71 - 97 sec Performed By: #### 3 [id number] ####[facility] [address] [place] [address] Prothrombin Timeon 7 INR Coag RelTime (PPP) 1.00 {INR} Normal 0.85-1.16 [facility] Comment on above: Result Comment: Coum vanesa Therapy:1.5 - 2.0 Low Intensity Therapy2.0 - 3.0 Moderate Intensity Therapy2.5 - 3.5 High (1) Intensity Therapy3.0 - 4.0 High (2) Intensity Therapy Performed By: #### 3 [id number] ####[facility] [address] [place] [address] Prothrombin time (PT) Coag time (PPP) 13.1 s Normal 11.3-14.5 [facility] are Comment on above: Performed By: #### 3 [id number] ####[facility] [address] [place] [address] Vital Signs Date Time Vital Sign Value Performing Clinician Faci lity 12-24-2024 14:38-0500 Body height 160 cm Merlin Ardon MD Work Phone: [facility] 12-24-2024 14:38-0500 Body mass index (BMI) [Ratio] 33.3 kg/m2 Merlin Ardon MD Work Phone: [facility] 12-24-2024 14:38-0500 Body temperature 98.2 [degF] Merlin Ardon MD Work Phone: [facility] 12-24-2024 14:38-0500 Body weight 85.28 kg Merlin Ardon MD Work Phone: [facility] 12-24-2024 14:38-0500 Diastolic blood pressure 79 mm[Hg] Merlin Ardon MD Work Phone: [facility] 12-24-2024 14:38-0500 Heart rate 89 /min Merlin Ardon MD Work Phone: [facility] 12-24-2024 14:38-0500 Respiratory rate 14 /min Merlin Ardon MD Work Phone: [facility] 12-24-2024 14:38-0500 SaO2% (BldA) [Mass fraction] 98 % Merlin Ardon MD Work Phone: [facility] 12-24-2024 14:38-0500 Systolic blood pressure 117 mm[Hg] Merlin Ardon MD Work Phone: [facility] 11-24-2024 13:51-0500 Body mass index (BMI) [Ratio] 34.72 kg/m2 Merlin Ardon MD Work Phone: [facility] 11-24-2024 13:51-0500 Body weight 88.91 kg Merlin Ardon MD Work Phone: [facility] Encounters Encounter Date Encounter Type Care Provider Facility Start: 12-24-2024 End: 12-24-2024 Patient encounter procedure Merlin Ardon MD Work Phone: [facility] Comment on above: Diaphragmatic hernia without obstruction and without gangrene (Primary Dx) Start: 12-24-2024 End: 12-24-2024 ambulatory MERLIN ARDON Facility:[facility] Start: 12-24-2024 End: 12-24-2024 Subsequent hospital visit by physician [facility] Qb1 (I-Stat) Radiology Comment on above: Diaphragmatic hernia without obstruction and without gangrene [K44.9] Start: 11-24-2024 End: 11-24-2024 Telephone encounter Merlin Ardon MD Work Phone: [facility] Comment on above: Appointment Consult; Appointment Confirmation Request Outside [facility] Records; Received Outside Medical Records Start: 05-12-2022 End: 05-12-[address] CABRERA JONES Facility:[facility] Start: 09-20-2021 End: 09-20-[address] CABRERA JONES Facility:[facility] Start: 09-15-2021 End: 09-16-[address] CABRERA JONES Facility:[facility] Start: 09-02-2021 End: 09-03-[address] CABRERA JONES Facility:[facility] Start: 08-24-2021 End: 08-24-[address] MARCIAL BOB Facility:[facility] Start: 05-16-2017 End: 05-16-2017 Ambulatory Tito VALLE Facility:[facility] Start: 05-10-2017 Ambulatory Tito VALLE Facility:[facility] Start: 05-09-2017 Ambulatory Tito VALLE Facility:[facility] Procedures Date Procedure Procedure Detail Performing Clinician Start: 12-24-2024 Radiologic exam esop hagus single contrast study Merlin Ardon MD Work Phone: Plan of Treatment Date Care Activity Detail Author Start: 12-24-2024 End: 12-24-2024 Patient encounter procedure Radiology Comment on above: Hiatal Hernia Start: 06-29-2024 Covid-19 Vaccine ( season) Covid-19 Vaccine ( season) [facility] Start: 06-29-2024 Covid-19 Vaccine ( season) Covid-19 Vaccine ( season) [facility] Start: 06-29-2024 Influenza vaccination Influenza Vacc ine (#1) [facility] Start: 2023 Pneumococcal Vaccine : 50+ (1 of 1 - PCV) Pneumococcal Vaccine: 50+ (1 of 1 - PCV) [facility] Start: 2023 Screening for malign ant neoplasm of lung Lung Cancer Screening [facility] Start: 2023 Shingrix Vaccine (1 of 2) Shingrix Vaccine (1 of 2) [facility] Start: 2018 Diabetes Screening Diabetes Screenin g [facility] Start: 2018 Lipid panel Lipid Screening [facility] Start: 2018 Screening for malign ant neoplasm of colon [facility] Start: 2013 Screening for malign ant neoplasm of breast Mammogram Screening [facility] Start: 1994 Screening for malign ant neoplasm of cervix Cervical Cancer Screening [facility] Start: 1992 Hepatitis B Vaccine (1 of 3 - 19+ 3-dose series) Hepatitis B Vaccine (1 of 3 - 19+ 3-dose series) [facility] Start: 1992 Urine microalbumin profile DTaP,Tdap,Td Vaccine (1 - Tdap) [facility] Start: 1991 Anxiety Screening Anxiety Screening [facility] Start: 1991 Depression Screening Depression Scre ening [facility] Start: 1991 Hepatitis C screening Hepatitis C Sc reening [facility] Start: 1991 HIV screening HIV Screening [facility] End: 12-24-2025 XR Esophagus Views W contrast PO XR ESOPHAGRAM Radiology Routine Diaphragmatic hernia without obstruction and without gangrene 1 Occurrences starting 11/24/2024 until 12/24/2025 [facility] Work Phone: Comment on above: 1 Occurrences starti ng 11/24/2024 until 12/24/2025 Immunizations Immunization Date Immunization Notes Care Provider Emmanuel mullen 06-28-2020 influenza virus vacc ine, unspecified formulation Gi (I-Stat) [facility] Payers Date Payer Category Payer Medicaid [id number] 2018 Medicare (Managed Care) [facility] [id number] 2018 Unknown [employer] O [id number] 2018-Present [phone] [address] [place] [address] HMO [id number] 1973 Unknown [id number] 1973 Unknown [id number] 1973 Unknown [id number] 1973 Unknown [id number] 1973 Unknown [id number] 1959 Medicaid [id number] 1959 Unknown [id number] Medicare [id number] Social History Date Type Detail Facility Start: 11-24-2024 Tobacco smoking stat us NHIS Ex-smoker [facility] Start: 05-06-2001 End: 05-06-2019 History of tobacco use Current smoker [facility] Start: 05-06-2001 End: 05-06-2019 History of tobacco use Cigarette Smoker [facility] Start: 11-24-2024 End: 12-24-2024 Cigarettes smoked current (pack per day) - Reported 1.5 [facility] Start: 11-24-2024 Tobacco use and exposure Smoke less tobacco non-user [facility] Start: 11-24-2024 End: 12-24-2024 Alcoholic beverage intake [facility] Start: 11-24-2024 End: 12-24-2024 Tobacco use panel [facility] National Score (1-10 0), lower number is lower risk Not on file [facility] Start: 11-24-2024 Tobacco [facility] Start: 1975 Sex assigned at Not on file [facility] Clinical Notes 03-01-2022 to 01-03-2025 Merlin Ardon MD - 01/03/2025 9:12 AM Travis Oreilly MD - 12/24/2024 2:45 PM Sonia Tracy RT(R) - 12/24/2024 1:20 PM ESTTelephone Encounter - Trice Louis - 11/24/2024 4:37 PM EST Note Date & Type Note Facility 01-03-2025 Note HNO ID: [id number] Author: MERLIN ARDON MD Service: ? Author Type: Physician Type: Progress Notes Filed: 01/03/2025 09:17 Note Text: I have read and reviewed the documentation and agree. I wish to add the followingI wish to add the following findings which will be communicated back to the requesting physician. Merlin Ardon MD [facility] STAFF PHYSICIAN NOTE OF PERSONAL INVOLVEMENT IN CARE Impression: Kiya Bhat is a 49 yo F former 25 PYS with PMH as below here for evaluation of hiatal and abdominal wall hernias after significant voluntary weight loss since last visit (BMI33). Has substernal pain with eating and early satiety, with CT showing type III hiatal hernia with entire stomach in chest, confirmed on esophagram. Given her age an anti-reflux operation along with a hiatal hernia repair is reasonable. I would favor a hiatal hernia repair prior to the abdominal wall hernia to decrease risk of recurrence. Plan: - Risks and benefits of minimally invasive hiatal hernia repair with likely Richard discussed with patient who understands and elects to proceed - Preoperative testing including echo, walking test, and PFTs, manometry and NM GET I have reviewed the documentation obtained and documented by the Resident and I have personally performed a face to face assessment of the patient and have personally participated in the moore components of the visit which includes medical decision making.. I have discussed the case and management of the patient's care. STAFF PHYSICIAN: Merlin Ardon MD DATE OF SERVICE: Dec 24, 2024 TIME OF SERVICE: 330 PM [facility] 01-03-2025 History of Presen t illness Narrative I have read and reviewed the documentation and agree. I wish to add the followingI wish to add the following findings which will be communicated back to the requesting physician. Merlin Ardon MD [facility] STAFF PHYSICIAN NOTE OF PERSONAL INVOLVEMENT IN CARE Impression: Kiya Bhat is a 49 yo F former 25 PYS with PMH as below here for evaluation of hiatal and abdominal wall hernias after significant voluntary weight loss since last visit (BMI33). Has substernal pain with eating and early satiety, with CT showing type III hiatal hernia with entire stomach in chest, confirmed on esophagram. Given her age an anti-reflux operation along with a hiatal hernia repair is reasonable. I would favor a hiatal hernia repair prior to the abdominal wall hernia to decrease risk of recurrence. Plan: - Risks and benefits of minimally invasive hiatal hernia repair with likely Richard discussed with patient who understands and elects to proceed - Preoperative testing including echo, walking test, and PFTs, manometry and NM GET I have reviewed the documentation obtained and documented by the Resident and I have personally performed a face to face assessment of the patient and have personally participated in the moore components of the visit which includes medical decision making.. I have discussed the case and management of the patient's care. STAFF PHYSICIAN: Merlin Ardon MD DATE OF SERVICE: Dec 24, 2024 TIME OF SERVICE: 330 PM Images from the original note were not included. [facility] TH[facility] SUR[facility]ERY OUTPATIENT CONSULT NOTE Kiya Bhat [id number] Requesting Provider: [facility] Thoracic Physician: Merlin Ardon MD Chief Complaint: hiatal hernia Impression: Kiya Bhat is a 49 yo F former 25 PYS with PMH as below here for evaluation of hiatal and abdominal wall hernias after significant voluntary weight loss since last visit (BMI33). Has substernal pain with eating and early satiety, with CT showing type III hiatal hernia with entire stomach in chest, confirmed on esophagram. Plan: - Risks and benefits of minimally invasive hiatal hernia repair with likely Richard discussed with patient who understands and elects to proceed - Preoperative testing including stress test, walking test, and PFTs SIGNATURE: Travis Manjarrez MD DATE of SERVICE: 12/24/2024 TIME of SERVICE: 2:46 PM HPI: Kiya Bhat is a 49 year old White female former 25 PYS with PMH obesity (BMI33), abdominal wall hernia, arthritis, and kidney stones referred by self for an opinion regarding management of hiatal hernia. She was seen last in 2019 and at that time her BMI was 44. She has lost a substantial amount of weight with diet and lifestyle changes + Adipex. Her GI sxs are overall mild with no dysphagia, minimal regurgitation, and heartburn has resolved after starting PPI but does have substernal pain with eating and early satiety. Does note moderate shortness of breath. CT with type III hiatal hernia with entire stomach in chest, confirmed on esophagram. (document at least 4 of these elements) Location: substernal Quality: heartburn Severity: mild Duration: 1 time per month ECOG Score: 1 Living arrangement: Lives alone Functional status: Independent Unintentional weight loss over last 3 months: No PAST MEDICAL HISTORY Diagnosis Date Anemia Fibromyalgia Hernia - lesion left lower abdominal area Hiatal hernia Kidney stones NEGATIVE MEDICAL HISTORY No tb, dm, heart and ca OA (osteoarthritis) SOB (shortness of breath) PAST SURGICAL HISTORY Procedure Laterality Date CHOLECYSTECTOMY 1996 OTHER Right 2000 right knee scope TUBAL LIGATION HX 1996 FAMILY HISTORY Problem Relation Age of Onset Diabetes Mother Heart Attack Mother other (connective tissue disorder) Mother other (Other) Father not sure of medical history Diabetes Brother Kidney Disease Brother kidney stones Hearing Loss Brother Social History Tobacco Use Smoking status: Former Current packs/day: 0.00 Average packs/day: 1.5 packs/day for 18.0 years (27.0 ttl pk-yrs) Types: Cigarettes Start date: 05/06/2001 Quit date: 05/06/2019 Years since quittin.6 Smokeless tobacco: Never Tobacco comments: using E cig Substance Use Topics Alcohol use: Not Currently Drug use: Never ALLERGIES No Known Allergies Asbestos Exposure No PHYSICAL EXAM BP 117/79 Pulse 89 Temp 36.8 C (98.2 F) (Oral) Resp 14 Ht 160 cm (5' 3 ) Wt 85.3 kg (188 lb) SpO2 98% BMI 33.30 kg/m Neck: No masses Resp: Clear Cardiovascular: Regular rate & rhythm GI: Soft Neurological/Psychiatric: Oriented to time, place & person Additional relevant findings: None DATA: Radiology: Patient is being referred to Merlin Ardon by Self for Hiatal Hernia Pathology: Procedures: Imaging Cardiopulmonary Testing PFT's/Six: Cardiac: Office Notes/Consults 1/15/25 pcp fazal 10/08/2019 JULIAN ARDON A: pt with type III PEH and morbid obesity (BMI of 44.3). I have once again reiterated her 3 choices and given her increasing BMI she will f/u with Dr. Romero for a REYGB. P: RTC prn. I have personally reviewed the following images/data: CT scan and Esophagram Outside Paper Medical Records Review personally performed by: Duglas Manjarrez Patient-Entered Questionnaire [facility] Esophageal Questionnaire 12/23/2024 Domain Symptom Raw Score Bother Raw Score Symptom T Score (0-100) Bother T Score (0-100) Dysphagia (7) 16 (Range 7-42) 17 (Range 7-35) 44.71 45.56 Eating (7) 15 (Range 7-42) 18 (Range 7-35) 50 52.4 Pain (5) 13 (Range 5-30) 14 (Range 5-25) 54.67 54.46 Dyspepsia (4) 10 (Range 4-24) 11 (Range 4-20) 48.98 51.22 Reflux &Regurgitation (5) Incomplete (Range 5-30) Incomplete (Range 5-25) Incomplete Incomplete Dumping (6) Incomplete (Range 6-36) Incomplete (Range 6-30) Incomplete Incomplete documented in this encounter [facility] 12-24-2024 Note HNO ID: [id number] Author: TRAVIS MANJARREZ MD Service: ? Author Type: Fellow Type: Progress Notes Filed: 01/03/2025 09:17 Note Text: [facility] THORACIC SURGERY OUTPATIENT CONSULT NOTE Kiya Bhat [id number] Requesting Provider: Self Thoracic Physician: Merlin Ardon MD Chief Complaint: hiatal hernia Impression: Kiya Bhat is a 49 yo F former 25 PYS with PMH as below here for evaluation of hiatal and abdominal wall hernias after significant voluntary weight loss since last visit (BMI33). Has substernal pain with eating and early satiety, with CT showing type III hiatal hernia with entire stomach in chest, confirmed on esophagram. Plan: - Risks and benefits of minimally invasive hiatal hernia repair with likely Richard discussed with patient who understands and elects to proceed - Preoperative testing including stress test, walking test, and PFTs SIGNATURE: Travis Manjarrez MD DATE of SERVICE: 12/24/2024 TIME of SERVICE: 2:46 PM HPI: Kiya Bhat is a 49 year old White female former 25 PYS with PMH obesity (BMI33), abdominal wall hernia, arthritis, and kidney stones referred by self for an opinion regarding management of hiatal hernia. She was seen last in 2018 and at that time her BMI was 44. She has lost a substantial amount of weight with diet and lifestyle changes + Adipex. Her GI sxs are overall mild with no dysphagia, minimal regurgitation, and heartburn has resolved after starting PPI but does have substernal pain with eating and early satiety. Does note moderate shortness of breath. CT with type III hiatal hernia with entire stomach in chest, confirmed on esophagram. (document at least 4 of these elements) Location: substernal Quality: heartburn Severity: mild Duration: 1 time per month ECOG Score: 1 Living arrangement: Lives alone Functional status: Independent Unintentional weight loss over last 3 months: No PAST MEDICAL HISTORY Diagnosis Date Anemia Fibromyalgia Hernia - lesion left lower abdominal area Hiatal hernia Kidney stones NEGATIVE MEDICAL HISTORY No tb, dm, heart and ca OA (osteoarthritis) SOB (shortness of breath) PAST SURGICAL HISTORY Procedure Laterality Date CHOLECYSTECTOMY 1997 OTHER Right 2001 right knee scope TUBAL LIGATION HX 1997 FAMILY HISTORY Problem Relation Age of Onset Diabetes Mother Heart Attack Mother other (connective tissue disorder) Mother other (Other) Father not sure of medical history Diabetes Brother Kidney Disease Brother kidney stones Hearing Loss Brother Social History Tobacco Use Smoking status: Former Current packs/day: 0.00 Average packs/day: 1.5 packs/day for 18.0 years (27.0 ttl pk-yrs) Types: Cigarettes Start date: 05/06/2001 Quit date: 05/06/2019 Years since quittin.6 Smokeless tobacco: Never Tobacco comments: using E cig Substance Use Topics Alcohol use: Not Currently Drug use: Never ALLERGIES No Known Allergies Asbestos Exposure No PHYSICAL EXAM BP 117/79 Pulse 89 Temp 36.8 ?C (98.2 ?F) (Oral) Resp 14 Ht 160 cm (5' 3 ) Wt 85.3 kg (188 lb) SpO2 98% BMI 33.30 kg/m? Neck: No masses Resp: Clear Cardiovascular: Regular rate AND rhythm GI: Soft Neurological/Psychiatric: Oriented to time, place AND person Additional relevant findings: None DATA: Radiology: Patient is being referred to Merlin Ardon by Self for Hiatal Hernia Pathology: Procedures: Imaging Cardiopulmonary Testing PFT's/Six: Cardiac: Office Notes/Consults 11/12/24 pcp fazal 10/08/2019 JULIAN ARDON A: pt with type III PEH and morbid obesity (BMI of 44.3). I have once again reiterated her 3 choices and given her increasing BMI she will f/u with Dr. Romero for a REYGB. P: RTC prn. I have personally reviewed the following images/data: CT scan and Esophagram Outside Paper Medical Records Review personally performed by: Duglas Manjarrez Patient-Entered Questionnaire [facility] Esophageal Questionnaire 12/23/2024 Domain Symptom Raw Score Bother Raw Score Symptom T Score (0-100) Bother T Score (0-100) Dysphagia (7) 16 (Range 7-42) 17 (Range 7-35) 44.71 45.56 Eating (7) 15 (Range 7-42) 18 (Range 7-35) 50 52.4 Pain (5) 13 (Range 5-30) 14 (Range 5-25) 54.67 54.46 Dyspepsia (4) 10 (Range 4-24) 11 (Range 4-20) 48.98 51.22 Reflux ANDRegurgitation (5) Incomplete (Range 5-30) Incomplete (Range 5-25) Incomplete Incomplete Dumping (6) Incomplete (Range 6-36) Incomplete (Range 6-30) Incomplete Incomplete [facility] 12-24-2024 History of Presen t illness Narrative Radiology Service Progress Note PATIENT NAME: Kiya Bhat DATE OF SERVICE: December 24, 2024 TIME: 1:50 PM PATIENT IDENTITY VERIFICATION COMPLETED USING TWO (2) IDENTIFIERS: Name and Date of confirmed by patient verbally. FALL SCREENING: Has the patient had 2 falls in the last year or 1 fall with injury or currently using an Ambulatory Assistive Device (Walker, Cane, Wheelchair, Crutches, etc.)? No PATIENT GENDER DATA: Assigned female at . status: : No status: NO. PATIENT RELEVANT IMPLANT DATA REVIEWED: Not Applicable PATIENT PRESENTS WITH AN IMPLANTABLE OR ATTACHED ERP PROGRAMMER: No RADIOLOGY DEPARTMENT: General X-ray: Exam(s) Completed: GI/ Procedure(s): Esophogram with barium contrast PERIPHERAL IV DATA: Not applicable SIGNED BY: RT Wil(Sybil) December 24, 2024 1:50 PM documented in this encounter [facility] 12-24-2024 Note HNO ID: [id number] Author: SONIA BENNETT RT(Sybil) Service: Radiology Author Type: Technologist Type: Progress Notes Filed: 12/24/2024 13:50 Note Text: Radiology Service Progress Note PATIENT NAME: Kiya Bhat DATE OF SERVICE: December 24, 2024 TIME: 1:50 PM PATIENT IDENTITY VERIFICATION COMPLETED USING TWO (2) IDENTIFIERS: Name and Date of confirmed by patient verbally. FALL SCREENING: Has the patient had 2 falls in the last year or 1 fall with injury or currently using an Ambulatory Assistive Device (Walker, Cane, Wheelchair, Crutches, etc.)? No PATIENT GENDER DATA: Assigned female at . status: : No status: NO. PATIENT RELEVANT IMPLANT DATA REVIEWED: Not Applicable PATIENT PRESENTS WITH AN IMPLANTABLE OR ATTACHED ERP PROGRAMMER: No RADIOLOGY DEPARTMENT: General X-ray: Exam(s) Completed: GI/ Procedure(s): Esophogram with barium contrast PERIPHERAL IV DATA: Not applicable SIGNED BY: RT Wil(R) December 24, 2024 1:50 PM [facility] 11-24-2024 Telephone encounter Note Patient confirmed appointment scheduled with Dr. Ardon with barium on 12/24/24 [facility] Work Phone: 11-24-2024 Miscellaneous Notes Patient confirmed appointment scheduled with Dr. Ardon with barium on 12/24/24 Images from the original note were not included. Thoracic Surgery Consultation - review of records for appointment scheduling Patient is being referred to Merlin Ardon by Self for Hiatal Hernia Pathology: Procedures: Imaging Cardiopulmonary Testing PFT's/Six: Cardiac: Office Notes/Consults 11/12/24 pcp fazal 10/08/2019 JULIAN ARDON A: pt with type III PEH and morbid obesity (BMI of 44.3). I have once again reiterated her 3 choices and given her increasing BMI she will f/u with Dr. Romero for a REYGB. P: RTC prn. History of: FAMILY HISTORY Problem Relation Age of Onset Diabetes Mother Heart Attack Mother other (connective tissue disorder) Mother other (Other) Father not sure of medical history Diabetes Brother Kidney Disease Brother kidney stones Hearing Loss Brother PAST MEDICAL HISTORY Diagnosis Date Anemia Fibromyalgia Hernia - lesion left lower abdominal area Hiatal hernia Kidney stones NEGATIVE MEDICAL HISTORY No tb, dm, heart and ca OA (osteoarthritis) SOB (shortness of breath) PAST SURGICAL HISTORY Procedure Laterality Date CHOLECYSTECTOMY 1996 OTHER Right 2000 right knee scope TUBAL LIGATION HX 1996 Social History Tobacco Use Smoking status: Former Current packs/day: 0.00 Average packs/day: 1.5 packs/day for 18.0 years (27.0 ttl pk-yrs) Types: Cigarettes Start date: 05/06/2001 Quit date: 05/06/2019 Years since quittin.5 Smokeless tobacco: Never Tobacco comments: using E cig Substance Use Topics Alcohol use: Not Currently Drug use: Never pt main complaint is Shortness of breath, pt notes bloating gas pain with chest pain (not coordination with eating) Request consult with dr Ardon (pt has lost weight with diet exercise) esophagram Jenni Mg, RN LOCAL PATIENT Received Epic Staff Message from Earl Brar is former pt of Merlin Ardon M.D., Ph.D. by SELF Patient last seen in 2019 Patient diagnosis/Reason for consult: Diaphragmatic hernia triage process explained: Yes Patient will receive a call from Thoracic NPM after triage review with surgeon to discuss any additional testing and/or consults that will be scheduled. Pt will then receive a call from our scheduling office for scheduling. Please call pt at [phone]. Patient was informed consultation could be at [place] or [facility]: No Patient Registration: Registration complete/updated: yes Insurance card(s) scanned in [facility] with in the past year: No Pt's [employer] is active. Ok to communicate to pt via [employer] yes Medical Records: Records in [facility] (internal CC records): Yes (old) Imaging in [facility] (internal CC records): Yes (old) Care Everywhere - queried yes, downloaded No Linked Outside Organizations (list): n/a OSH Records Requested: none Date: N/A Outside Hospital(s) requested records from: n/a Received: none Uploaded: N/A. Waiting on additional records: No. Missing (list): N/A OS Pathology Slides Requested: none Date: N/A Outside Hospital(s) slides requested from: n/a OS Radiology Imaging Requested: none Date: N/A Outside Hospital(s) requested imaging from: n/a. Imaging will be received via N/A Received: none Imaging uploaded: N/A Waiting on additional: No. Additional providers added to Care Teams: No Additional Notes/Comments: patient confirmed she has not been seen/treated for her diagnosis since her last visit here in 2019. No imaging. Enct routed to: Yes, Thoracic NPM for triage Renae Elliott documented in this encounter [facility] 11-24-2024 Telephone encounter Note Received outside office note (scanned) to [facility]. Renae Chaudhry Supportive Employment Case Manager [facility] Work Phone (unformatted): [phone] 11-24-2024 Miscellaneous Notes Received outside office note (scanned) to [facility]. Renae Chaudhry Supportive Employment Case Manager Attempt #1 Requested Medical Records from the office of Dr. Cabrera Jones Spoke to: Jacki Phone #: [phone] Fax #: [phone] Jacki agreed to fax the last office note Renae Elliott November 24, 2024 2:12 PM documented in this encounter [facility] 11-24-2024 Telephone encounter Note Attempt #1 Requested Medical Records from the office of Dr. Cabrera Jones Spoke to: Jacki Phone #: [phone] Fax #: [phone] Jacki agreed to fax the last office note Renae Richa Elliott November 24, 2024 2:12 PM [facility] 11-24-2024 Telephone encounter Note Images from the original note were not included. Thoracic Surgery Consultation - review of records for appointment scheduling Patient is being referred to Merlin Ardon by Self for Hiatal Hernia Pathology: Procedures: Imaging Cardiopulmonary Testing PFT's/Six: Cardiac: Office Notes/Consults 11/12/24 pcp fazal 10/08/2019 JULIAN ARDON A: pt with type III PEH and morbid obesity (BMI of 44.3). I have once again reiterated her 3 choices and given her increasing BMI she will f/u with Dr. Romero for a REYGB. P: RTC prn. History of: FAMILY HISTORY Problem Relation Age of Onset Diabetes Mother Heart Attack Mother other (connective tissue disorder) Mother other (Other) Father not sure of medical history Diabetes Brother Kidney Disease Brother kidney stones Hearing Loss Brother PAST MEDICAL HISTORY Diagnosis Date Anemia Fibromyalgia Hernia - lesion left lower abdominal area Hiatal hernia Kidney stones NEGATIVE MEDICAL HISTORY No tb, dm, heart and ca OA (osteoarthritis) SOB (shortness of breath) PAST SURGICAL HISTORY Procedure Laterality Date CHOLECYSTECTOMY 1997 OTHER Right 2000 right knee scope TUBAL LIGATION HX 1996 Social History Tobacco Use Smoking status: Former Current packs/day: 0.00 Average packs/day: 1.5 packs/day for 18.0 years (27.0 ttl pk-yrs) Types: Cigarettes Start date: 05/06/2001 Quit date: 05/06/2019 Years since quittin.5 Smokeless tobacco: Never Tobacco comments: using E cig Substance Use Topics Alcohol use: Not Currently Drug use: Never pt main complaint is Shortness of breath, pt notes bloating gas pain with chest pain (not coordination with eating) Request consult with dr Ardon (pt has lost weight with diet exercise) esophagram Jenni Mg RN [facility] 11-24-2024 Telephone encounter Note LOCAL PATIENT Received [facility] Staff Message from Earl Brar is former pt of Merlin Ardon M.D., Ph.D. by SELF Patient last seen in 2019 Patient diagnosis/Reason for consult: Diaphragmatic hernia triage process explained: Yes Patient will receive a call from Thoracic NPM after triage review with surgeon to discuss any additional testing and/or consults that will be scheduled. Pt will then receive a call from our scheduling office for scheduling. Please call pt at [phone]. Patient was informed consultation could be at [place] or [facility]: No Patient Registration: Registration complete/updated: yes Insurance card(s) scanned in [facility] with in the past year: No Pt's [employer] is active. Ok to communicate to pt via [employer] yes Medical Records: Records in [facility] (internal CC records): Yes (old) Imaging in [facility] (internal CC records): Yes (old) Care Everywhere - queried yes, downloaded No Linked Outside Organizations (list): n/a OSH Records Requested: none Date: N/A Outside Hospital(s) requested records from: n/a Received: none Uploaded: N/A. Waiting on additional records: No. Missing (list): N/A OSH Pathology Slides Requested: none Date: N/A Outside Hospital(s) slides requested from: n/a OSH Radiology Imaging Requested: none Date: N/A Outside Hospital(s) requested imaging from: n/a. Imaging will be received via N/A Received: none Imaging uploaded: N/A Waiting on additional: No. Additional providers added to Care Teams: No Additional Notes/Comments: patient confirmed she has not been seen/treated for her diagnosis since her last visit here in 2019. No imaging. Enct routed to: Yes, Thoracic NPM for triage Renae Elliott [facility] Work Phone (unformatted): [phone] 11-24-2024 Telephone encounter Note .RECEIVED CALL FROM: Patient PATIENT INFORMATION: Name: Kiya Bhat : 1975 (home) [phone] (cell) Email: [email or web address] Referring Provider: No referring provider defined for this encounter. Phone: N/A Fax: Requested Surgeon: Merlin Ardon M.D., Ph.D. Reason for appointment/diagnosis: Diaphragmatic hernia without obstruction and without gangrene Earl Brar November 24, 2024 11:32 AM [facility] 11-24-2024 Miscellaneous Notes .RECEIVED CALL FROM: Patient PATIENT INFORMATION: Name: Kiya Bhat : 1975 (home) [phone] (cell) Email: [email or web address] Referring Provider: No referring provider defined for this encounter. Phone: N/A Fax: Requested Surgeon: Merlin Ardon M.D., Ph.D. Reason for appointment/diagnosis: Diaphragmatic hernia without obstruction and without gangrene Earl Brar November 24, 2024 11:32 AM documented in this encounter [facility] 03-01-2022 Note Chief Complaint consultation for sebaceous [...] 2: Mother and Brother. Heart disease: Mother. [facility] Comment on above: Result Comment: Elec tronically Signed By: FRANK GALLO, Hemal Moore\Date and Time Signed: 03/01/22 16:21 EDT Evaluation note Diagnosis Diaphragmatic hernia without obstruction and without gangrene- [facility] Di[facility]atic hernia without obstruction and without gangrene [facility] Diagnosis Diaphragmatic hernia without obstruction and without gangrene- Primary [facility] Diagnostic Procedure Only (Routine) - Authorized Specialty Diagnoses / Procedures Referred By Chandler berkowitz Referred To Contact XR IMAGING Diagnoses Diaphragmatic hernia without obstruction and without gangrene Procedures XR ESOPHAGRAM RADIOLOGIC EXAM ESOPHAGUS SINGLE CONTRAST STUDY Merlin Ardon MD [address] [place] [address] [place] [id number] Referral ID Status Reason Start Date Expiration Date Visits Requested Visits Authorized [id number] Authorized Auto-Generat ed Referral 11/24/2024 12/24/2025 1 1 [facility] Summary Purpose Family History No Family History Records FoundNo Family History Records FoundNo Family History Records FoundNo Family History Records Found Advance Directives No Advanced Directives Records FoundNo Advanced Directives Records FoundNo Advanced Directives Records FoundNo Advanced Directives Records Found Additional Source Comments INFORMATION SOURCE (unrecogn ized section and content) DATE CREATED AUTHOR 04/24/2018 [facility] DATE CREATED AUTHOR AUTHOR'S ORGANIZ ATION 03/03/2022 [facility] DATE CREATED AUTHOR AUTHOR'S ORGANIZ ATION 05/18/2022 [facility] DATE CREATED AUTHOR AUTHOR'S ORGANIZ ATION 01/05/2025 [facility] Source Comments (unrecognize d section and content) In the event this informatio n is protected by the Federal Confidentiality of Alcohol and Drug Abuse Patient Records regulations: The Federal rules restrict any use of the information to criminally investigate or prosecute any alcohol or drug abuse patient.[facility] the event this information is protected by the Federal Confidentiality of Alcohol and Drug Abuse Patient Records regulations: The Federal rules restrict any use of the information to criminally investigate or prosecute any alcohol or drug abuse patient.[facility] the event this information is protected by the Federal Confidentiality of Alcohol and Drug Abuse Patient Records regulations: The Federal rules restrict any use of the information to criminally investigate or prosecute any alcohol or drug abuse patient.[facility] the event this information is protected by the Federal Confidentiality of Alcohol and Drug Abuse Patient Records regulations: The Federal rules restrict any use of the information to criminally investigate or prosecute any alcohol or drug abuse patient.[facility] the event this information is protected by the Federal Confidentiality of Alcohol and Drug Abuse Patient Records regulations: The Federal rules restrict any use of the information to criminally investigate or prosecute any alcohol or drug abuse patient.[facility] Reason for Visit (unrecogniz ed section and content) Reason Comments Appointment Reason Comments Consult Appointment Confirmation Reason Comments Request Outside Medical Records Received Outside Medical Records Reason Comments Radio GI Main HB6 Specialty Diagnoses / Procedures Referred By Chandler t Referred To Contact XR IMAGING Diagnoses Diaphragmatic hernia without obstruction and without gangrene Procedures XR ESOPHAGRAM RADIOLOGIC EXAM ESOPHAGUS SINGLE CONTRAST STUDY Merlin Ardon MD [address] [place] [address] Phone: tel: [place] [id number] Referral ID Status Reason Start Date Expiration Date V isits Requested Visits Authorized [id number] Closed Auto-Generate d Referral 11/24/2024 12/24/2025 1 1 Reason Comments Consult Care Teams (unrecognized sec tion and content) Supervisor Special Effects Relationship Specialty Start Date End Date Cabrera Jones MD [address] [place] [id number] PCP - General Family Medicine 11/24/24 Junior Araya Jr., MD [facility] [employer] [place] [address] Referring 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/19 Supervisor Special Effects Relationship Specialty Start Date End Date Cabrera Jones MD [address] [place] [id number] PCP - General Family Medicine 11/24/24 Junior Araya Jr., MD [facility] [employer] [place] [address] Referring 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/19 Supervisor Special Effects Relationship Specialty Start Date End Date Cabrera Jones MD [address] [place] [id number] PCP - General Family Medicine 11/24/24 Junior Araya Jr., MD [facility] [employer] [address] [place] [address] Referring 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/19 Supervisor Special Effects Relationship Specialty Start Date End Date Cabrera Jones MD [address] [place] [id number] PCP - [facility] Family [facility] 11/24/24 Junior Araya Jr., MD [address] [place], [place] [address] [facility] [place] [address] Referring 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/19 Supervisor Special Effects Relationship Specialty [place] [address] [place] [id number] PCP - [facility] 11/24/24 Junior Araya Jr., MD [address] [place] [address] [place] [address] Referring 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/19 FOR RECORDS PERTAINING TO PATIENTS WHO ARE [...] BE BASED ON THE PRIMARY CLINICAL RECORDS. [facility]. provides no warranty or guarantee of the accuracy or completeness of information in this document.
== END 2025-01-16 10:25 | disposition home or self-care (01) ==
LOC: RAD 10:28
PROVIDERS: PCP Family Medicine; Visit Provider Family Medicine
DX: M54.12 Radiculopathy, cervical region (principal); M47.812 Spondylosis without myelopathy or radiculopathy, cervical region
CPT/HCPCS: 72050

== ENCOUNTER 2025-02-06 10:36 | Outpatient (OUT) | payer MEDICARE, MEDICAID, SELFPAY ==
--- NOTE | 2025-02-06 10:39 | MR_ITS ---
[address] [address] Patient Name: CE ALEJANDRA MRN: [id number] date: 1975 Sex: F Assigned Patient Location: MRI Current Patient Location: MRI Accession/Order Number: [id number] Exam Date: 02/06/2025 12:46 Report Date: 02/06/2025 12:54 At the request of: CABRERA VIGIL MD Procedure: MR cervical spine wo con EXAMINATION: MRI C-SPINE WITHOUT IV CONTRAST CLINICAL HISTORY: Neck pain for 1.5 months. Limited range of motion. COMPARISON: Cervical spine 01/16/2025 TECHNIQUE: Multiecho imaging was performed in the sagittal and axial planes without contrast administration. FINDINGS: Vertebral body heights appear maintained. No bone marrow edema is present. Cervical medullary junction appears normal. No abnormal cord signal is seen. No paraspinal mass. No prevertebral soft tissue swelling is noted. At C2-3: No posterior disc pathology. No neural canal or foraminal stenosis. At C3-4: No posterior disc pathology. No neural canal or foraminal stenosis. At C4-5: No posterior disc pathology. No neural canal or foraminal stenosis. At C5-6: Disc osteophyte complex present causing mild canal stenosis. No significant neural foraminal stenosis. At C6-7: Disc osteophyte complex present causing mild canal stenosis. No significant neural foraminal stenosis At C7-T1: No posterior disc pathology. No neural canal or foraminal stenosis. MR/MR cervical spine wo con IMPRESSION: Degenerative disease as described above at C5-6 and C6-7 Impression dictated by: Ozzy Bailey Jr., D.O.02/06/2025 12:54 PM Dictation Location: [place] [address] Electronically authenticated by: [id number] Y Date: 02/06/2025 12:54
--- OUTSIDE RECORDS SUMMARY | 2025-02-06 10:49 | XMS_ITS | CCD ---
Author Organization [facility] Care Team Providers Care Rn Chronic Name Role Phone VALLE, M L Unavailable [...] Unavailable FAZAL, DR REES Primary Care Unavailable AVOCA, DR LOREE Zimmerman Consulting Unavailable FAZAL, DR REES Primary Care Unavailable FAZAL, DR REES Admitting Unavailable FAZAL, DR REES Attending Unavailable FAZAL, DR REES Consulting Unavailable Marshal Faria MD, Ramon M Unavailable Cabrera Jones MD Primary Care Provider MERLIN ARDON Referring Unavailable CABRERA JONES Primary Care Unavailable MERLIN ARDON Attending Unavailable SELF Referring Unavailable CABRERA JONES Primary Care Unavailable Medications Current Medications Medication Drug Class(es) Dates Sig (Normalized) Sig (Original) calcium carbonate 1250 mg / cholecalciferol 200 unt oral tablet (5 sources) Vitamin D Start: 06-24-2019 take 1 tablet by mouth once daily qdqmsqb-rmofhzjdu-lv tamin D3 (CALCIUM 500+D) 500 mg(1,250mg) -200 [...] 08-26-2021 Episodic Other aftercare (1 source) 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; Translations: [OTH 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 CURRENT DRUG THERAPY] Onset: 08-26-2021 Episodic Other [...] Test Name Value Interpretation Reference Range Facility [facility] 12-24-2024 CNOV Office Visit (KATE ) KIYA BHAT ([id number]) 1975 F Date Time Provider Department 12/24/24 2:15 PM MERLIN ARDON During your visit today, we recorded the following information about you: Temperature Pulse Respiration Blood pressure 98.2 degrees 89/minute 14/minute 117/79 Weight Height 85.3 kg 1.6 m Travis Manjarrez MD 01/03/2025 9:17 AM Signed [facility] TH[facility] OUTPATIENT CONSULT NOTE Kiya Bhat [id number] Requesting Provider: Self Thoracic Physician: Merlin Ardon [...] personally performed by: Duglas Manjarrez Patient-Entered Questionnaire [facility] Esophageal Questionnaire 12/23/2024 Domain Symptom Raw [...] the following (more content not included)... Normal [facility] XR ESOPHAGRAMon 12-24-2024 XR ESOPHAGRAM * * [...] with organoaxial orientation. No demonstrated gastroesophageal reflux. Nuclear Medicine Specialist: [facility] Transcribe Date/Time: Dec 24 2024 2:30P Dictated by : ALANNA FOSTER MD This examination was interpreted and the report reviewed and electronically signed by: LOREE VALDEZ MD on Dec 24 2024 3:55PM EST [id number] N Normal [facility] XR Esophagus Views W contras t Thad 12-24-2024 IMPRESSION: Large hiatal hernia (type III) with organoaxial orientation. No demonstrated gastroesophageal reflux. Nuclear Medicine Specialist: [facility] Transcribe Date/Time: Dec 24 2024 2:30P Dictated [...] the entire procedure. DIVISION OF RADIOLOGY Provider, [facility] - 12/24/2024 * * *Final Report* [...] with organoaxial orientation. No demonstrated gastroesophageal reflux. Nuclear Medicine Specialist: [facility] Transcribe Date/Time: Dec 24 2024 2:30P Dictated by : ALANNA FOSTER MD This examination was interpreted and the report reviewed and electronically signed by: LOREE VALDEZ MD on Dec 24 2024 3:55PM EST [facility] Radiology Study observation (narrative) [facility] XR Esophagus Views W jhonatan berkowitz POOrdered By: Ccf Provider on 12-24-2024 [facility] CNPNon 11-24-2024 CNPN Telephone (KATE) KIYA BHAT ([id number]) 1975 F Date Time Provider Department 11/24/24 MERLIN ARDON During your visit today, we recorded the following information about you: Weight 88.9 kg Renae Holly 11/24/2024 1:28 PM Signed LOCAL PATIENT Received [employer] Staff Message from Earl Brar is former [...] office for scheduling. Please call pt at [phone]. Patient was informed consultation could be at [place] or [facility] [place]: No Patient Registration: Registration complete/updated: yes Insurance card(s) scanned in [employer] with in the past year: No Pt's [employer] is active. Ok to communicate to pt via MyChart yes Medical Records: Records in [facility] (internal CC records): Yes (old) Imaging in [facility] (internal CC records): Yes (old) Care Everywhere [...] Date Reviewed: 10/08/2019 Reviewed by: Darya Tony (La) - Fully Assessed Reason for Visit: Consult [173] Appointment Confirmation [2562] Primary Visit Diagnosis:Diaphragmat ic hernia without obstruction and without gangrene [K44.9] Order(s):XR ESOPHAGRAM [[id number]] Order #: [id number] FUTURE Prescriptions as of 11/24/2024 - multivitamin [...] 1 tablet by mouth once daily. - atrwvdd-nyegutuji-bfu dunaway D3 (CALCIUM 500+D) 500 mg(1,250mg) -200 unit per tablet Take 1 tablet by mouth once daily. - Ibuprofen 200 mg cap (more content not included)... [facility] ([id number]) 1975 F Date Time Provider Department 11/24/24 MERLIN ARDON During your visit today, we recorded the following information about you: Sania Hollyria 11/24/2024 2:15 PM Signed Attempt #1 Requested Medical Records from the office of Dr. Cabrera Jones Spoke to: Jacki Phone #: [phone] Fax #: [phone] Jacki agreed to fax the last office note Renae [place] November 24, 2024 2:12 PM Richa Elliott Renae 11/24/2024 4:06 PM Signed Received outside office note (scanned) to [facility]. Renae Chaudhry Radio Dispatcher Allergies As of Date: 11/24/2024 (No Known Allergies) Date Reviewed: 10/08/2019 Reviewed by: Darya Tony (Sara) - Fully Assessed Reason for Visit: Request Outside Medical Records [1533] Received Outside Medical Records [[id number]] Prescriptions as of 11/24/2024 - multivitamin (MULTIPLE [...] 1 tablet by mouth once daily. - ldvbfkr-yutsbefqx-yhl dunaway D3 (CALCIUM 500+D) 500 mg(1,250mg) -200 unit per tablet Take 1 tablet by mouth once daily. - Ibuprofen 200 mg cap Take 1-2 capsules by mouth as needed (for pain). Problem List As Of Date: 11/24/2024 (None) Encounter Status:Closed by RICHA ELLIOTTSANIARENAE on 11/24/24 [facility] KI[facility] BHAT ([id number]) 1975 F Date Time Provider Department 11/24/24 MERLIN ARDON During your visit today, we recorded the following information about you: Earl Brar 11/24/2024 11:33 AM Signed .RECEIVED CALL FROM: Patient PATIENT INFORMATION: Name: Kiya Bhat : 1975 (home) [phone] (cell) Email: [email or web address] Referring Provider: No referring provider defined for this encounter. Phone: N/A Fax: Requested Surgeon: Merlin Ardon M.D., Ph.D. Reason for appointment/diagnosis : Diaphragmatic hernia without obstruction and without gangrene Earl Brar November 24, 2024 11:32 AM Allergies As of Date: 11/24/2024 (No Known Allergies) Date Reviewed: 10/08/2019 Reviewed by: Darya Tony (La) - Fully Assessed Reason for Visit: Appointment [...] 1 tablet by mouth once daily. - rcqbhzk-cmqlahpqu-jhj dunaway D3 (CALCIUM 500+D) 500 mg(1,250mg) -200 unit per tablet Take 1 tablet by mouth once daily. - Ibuprofen 200 mg cap Take 1-2 capsules by mouth as needed (for pain). Problem List As Of Date: 11/24/2024 (None) Encounter Status:Closed by EARL BRAR on 11/24/24 Normal [facility] Covid-19 PCR (CVD[facility])on 04-28 SARS-CoV-2 (COVID-19) RNA SUKHWINDER+probe Ql (Unsp spec) Not detected Normal NOT DETECTED [facility] Comment on above: Result Comment: This test is not yet approved or cleared by the [place] FDA. When there are no FDA-approved or cleared tests available, and other criteria are met, FDA can make tests available under an emergency access mechanism called an Emergency Use Authorization (EUA). The EUA for this test is supported by the [place] of Health and Human Service's (HHS's) declaration [...] #### C MP, BNP, TSH, HSTROPN #### [facility] [address] [place] [address] Dr. Emily Hercules Facesheeton 03-02-2022 Facesheet [id number] .[id number]:127 Normal [facility] Physician Referralon 022 Physician Referral [id number]. 00CD:127 Normal [facility] 08[facility]30 SARS-CoV-2 (COVID-19) RNA SUKHWINDER+probe Ql (Unsp spec) Not detected Normal NOT DETECTED [facility] Comment on above: Result Comment: This test is not yet approved or cleared by the [place] FDA. When there are no FDA-approved or cleared tests available, and other criteria are met, FDA can make tests available under an emergency access mechanism called an Emergency Use Authorization (EUA). The EUA for this test is supported by the [place] of Health and Human Service's (HHS's) declaration [...] consistent with SARS-CoV-2. Performed By: #### C [facility] #### [facility] [address] [place] [address] Dr. Emily Hercules MG MAMM SCREEN 3D SHELLY CADon 09-15-2021 MG MAMM SCREEN 3D SHELLY CAD Patient: KIYA BHAT Exam Date: 09/15/2021 : 1975 Gender:F Ordering : DR CABRERA JONES . Admission #: [id number] Family : Order #: [id number] CLICK HERE TO VIEW EXAM RADIOLOGY REPORT PROCEDURE: MAMMOGRAM SCREENING 3D BILATERAL CAD COMPARISON: None. INDICATIONS: Screening mammography Calculator Name NCI Breast Cancer Risk Assessment Tool 5 Year Breast Cancer Risk 0.70% Lifetime Breast Cancer Risk 6.70% Personal Breast Cancer No Personal Ovarian Cancer No Treatments None Family Cancers Grandmother-maternal with leukemia cancer at age 38. LOCATION: [facility] BREAST COMPOSITION: Scattered areas fibroglandular density. [...] MD on 09/15/2021 at 11:59 Normal [facility] FSHon 09-03-2021 FSH 8.8 mIU/mL Normal [facility] Comment on above: Result Comment: Adul t Female: Follicular phase 3.5 - 12.5 Ovulation phase 4.7 - 21.5 Luteal phase 1.7 - 7.7 Postmenopausal 25.8 - 134.8 Performed By: #### L [facility] #### [facility] [address] [place] [address] Dr. Emily Hercules INSULINon 09-03-2021 Insulin 19.4 uIU/mL Normal 2.6-24.9 [facility] Comment on above: Performed By: #### C MP, BNP, TSH, HSTROPN #### [facility] [address] [place] [address] Dr. Emily Hercules CBC AUTO DIFFon 09-02-2021 BASO # 0.1 103/ul Normal 0.0-0.1 [facility] Comment on above: Performed By: #### C BC #### [facility] [address] [place] [address] Dr. Emily Hercules Basophils/100 WBC (Bld) 0.7 % Normal 0.2-2.0 [facility] Comment on above: Performed By: #### C BC #### [facility] [address] [place] [address] Dr. Emily Hercules EO # 0.3 103/ul Normal 0.0-0.7 [facility] Comment on above: Performed By: #### C BC #### [facility] [address] [place] [address] Dr. Emily Hercules Eosinophils/100 WBC (Bld) 3.8 % Normal 0.9-7.0 [facility] Comment on above: Performed By: #### C BC #### [facility] [address] [place] [address] Dr. Emily Hercules Erythrocyte distribution width (RBC) [Ratio] 13.6 % Normal 11.0-15.0 [facility] Comment on above: Performed By: #### C BC #### [facility] [address] [place] [address] Dr. Emily Hercules Hematocrit (Bld) [Volume fraction] 42.6 % Normal 36.0-48.0 [facility] Comment on above: Performed By: #### C BC #### [facility] [address] [place] [address] Dr. Emily Hercules Hemoglobin (Bld) [Mass/Vol] 14.5 g/dL Normal 12.0-16.0 [facility] Comment on above: Performed By: #### C BC #### [facility] [address] [place] [address] Dr. Emily Hercules IG # 0.08 10e3/ul Critically high 0.00-0.03 [facility] Comment on above: Performed By: #### C BC #### [facility] [address] [place] [address] Dr. Emily Hercules IG % 1.0 % Critically high 0.0-0.5 [facility] Comment on above: Performed By: #### C BC #### [facility] [address] [place] [address] Dr. Emily Hercules LYMPH # 2.2 103/ul Normal 1.2-3.8 [facility] Comment on above: Performed By: #### C BC #### [facility] [address] [place] [address] Dr. Emily Hercules Lymphocytes/100 WBC (Bld) 27.4 % Normal 20.5-60.0 [facility] Comment on above: Performed By: #### C BC #### [facility] [address] [place] [address] Dr. Emily Hercules MANUAL DIFF REQ NO Normal [facility] Comment on above: Performed By: #### C BC #### [facility] [address] [place] [address] Dr. Emily Hercules MCH (RBC) [Entitic mass] 30.2 pg Normal 26.7-34.0 [facility] Comment on above: Performed By: #### C BC #### [facility] [address] [place] [address] Dr. Emily Hercules MCHC (RBC) [Mass/Vol] 34.0 g/dL Normal 29.9-35.2 [facility] Comment on above: Performed By: #### C BC #### [facility] [address] [place] [address] Dr. Emily Hercules MCV (RBC) [Entitic vol] 88.8 fL Normal 81.0-99.0 [facility] Comment on above: Performed By: #### C BC #### [facility] [address] [address] [address] Emily Hercules MONO # 0.5 103/ul Normal 0.3-0.8 [facility] Comment on above: Performed By: #### C BC #### [facility] [address] [address] [address] Emily Hercules Monocytes/100 WBC (Bld) 6.2 % Normal 1.7-12.0 [facility] Comment on above: Performed By: #### C BC #### [facility] [address] [address] [address] Emily Hercules NEUT # 4.9 103/ul Normal 1.4-6.5 [facility] Comment on above: Performed By: #### C BC #### [facility] [address] [place] [address] Dr. Emily Hercules Neutrophils/100 WBC (Bld) 60.9 % Normal 43.0-75.0 [facility] Comment on above: Performed By: #### C BC #### [facility] [address] [place] [address] Dr. Emily Hercules Platelet mean volume (Bld) [Entitic vol] 11.6 fL Normal 9.5-13.5 [facility] Comment on above: Performed By: #### C BC #### [facility] [address] [place] [address] Dr. Emily Hercules PLT 180 103/ul Normal 150-450 [facility] Comment on above: Performed By: #### C BC #### [facility] [address] [place] [address] Dr. Emily Hercules RBC 4.80 106/ul Normal 4.20-5.40 [facility] Comment on above: Performed By: #### C BC #### [facility] [address] [place] [address] Dr. Emily Hercules WBC 8.1 103/ul Normal 4.0-11.0 [facility] Comment on above: Performed By: #### C BC #### [facility] [address] [address] [address] Emily Hercules FREE THYROXINE INDEX T7on FTI 3.47 Normal [facility] Comment on above: Performed By: #### T 7, CMP, LIPID, TSH #### [facility] [address] [address] [address] Emily Hercules T3U 35.0 % Normal 23.5-40.5 [facility] Comment on above: Performed By: #### T 7, CMP, LIPID, TSH #### [facility] [address] [address] [address] Emily Hercules T4 [Mass/Vol] 9.90 ug/dL Normal 5.53-11.00 [facility] Comment on above: Performed By: #### T 7, CMP, LIPID, TSH #### [facility] [address] [place] [address] Dr. Emily Hercules GLYCOHEMOGLOBIN A1Con 2020 ADA RECOMMENDATION ADA THERAPEUTIC TARGET 6.0 - 7.0 ACTION SUGGESTED > 7.0 Normal [facility] Comment on above: Performed By: #### C MP, BNP, TSH, HSTROPN #### [facility] [address] [address] [address] Emily Hercules Glucose [Mass/Vol] 114 mg/dL Normal [facility] Comment on above: Performed By: #### C MP, BNP, TSH, HSTROPN #### [facility] [address] [place] [address] Dr. Emily Hercules HbA1c (Bld) [Mass fraction] 5.6 % Normal <=6.0 [facility] Comment on above: Performed By: #### C MP, BNP, TSH, HSTROPN #### [facility] [address] [place] [address] Dr. Emily Hercules IRONon 09-02-2021 Iron [Mass/Vol] 111.0 ug/dL Normal 37.0-170.0 [facility] Comment on above: Performed By: #### C MP, BNP, TSH, HSTROPN #### [facility] [address] [address] [address] Emily Hercules LIPID PROFILEon 09-02-2021 CHOL-HDL RATIO NORM SEE BELOW Normal [facility] Comment on above: Result Comment: 3.3 - 4.4 LOW RISK 4.4 - 7.1 AVERAGE RISK 7.1 - 11.0 MODERATE RISK >11.0 HIGH RISK Performed By: #### C MP, BNP, TSH, HSTROPN #### [facility] [address] [address] [address] Emily Hercules Cholesterol [Mass/Vol] 183 mg/dL Normal <=200 [facility] Comment on above: Performed By: #### C MP, BNP, TSH, HSTROPN #### [facility] [address] [address] [address] Emily Hercules Cholesterol in HDL [Mass/Vol] 43 mg/dL Normal [facility] Comment on above: Performed By: #### C MP, BNP, TSH, HSTROPN #### [facility] [address] [address] [address] Emily Hercules Cholesterol in LDL [Mass/Vol] 109.0 mg/dL Normal [facility] Comment on above: Performed By: #### C MP, BNP, TSH, HSTROPN #### [facility] [address] [place] [address] Dr. Emily Hercules Cholesterol.total/Ch olesterol in HDL [Mass ratio] 4.3 {ratio} Normal [facility] Comment on above: Performed By: #### C MP, BNP, TSH, HSTROPN #### [facility] [address] [address] [address] Emily Hercules HDL NORMAL > or = 60 mg/dl - LO W CARDIOVASCULAR RISK <40 mg/dl - HIGH CARDIOVASCULAR RISK Normal [facility] Comment on above: Performed By: #### C MP, BNP, TSH, HSTROPN #### [facility] [address] [address] [address] Emily Hercules LDL CALC NORMAL SEE BELOW Normal [facility] Comment on above: Result Comment: <100 mg/dl OPTIMAL 100 - 129 mg/dl NEAR OR ABOVE OPTIMAL 130 - 159 mg/dl BORDERLINE HIGH 160 - 189 mg/dl HIGH >190 mg/dl VERY HIGH Performed By: #### C MP, BNP, TSH, HSTROPN #### [facility] [address] [address] [address] Emily Hercules Triglyceride [Mass/Vol] 155 mg/dL Critically high <=150 [facility] Comment on above: Performed By: #### C MP, BNP, TSH, HSTROPN #### [facility] [address] [address] [address] Emily Hercules VLDL CALC 31.0 mg/dL Normal [facility] Comment on above: Performed By: #### C MP, BNP, TSH, HSTROPN #### [facility] [address] [address] [address] Emily Hercules PROF 14(COMP METB)on 021 Albumin [Mass/Vol] 3.8 g/dL Normal 3.5-5.0 [facility] Comment on above: Performed By: #### T 7, CMP, LIPID, TSH #### [facility] [address] [address] [address] Emily Hercules Albumin/Globulin [Mass ratio] 1.1 {ratio} Normal [facility] Comment on above: Performed By: #### T 7, CMP, LIPID, TSH #### [facility] [address] [address] [address] Emily Hercules ALP [Catalytic activity/Vol] 57 U/L Normal 38-126 [facility] Comment on above: Performed By: #### T 7, CMP, LIPID, TSH #### [facility] [address] [address] [address] Emily Hercules ALT [Catalytic activity/Vol] 57 U/L Critically high 9-52 [facility] Comment on above: Performed By: #### T 7, CMP, LIPID, TSH #### [facility] [address] [address] [address] Emily Hercules Anion gap [Moles/Vol] 11.7 mmol/L Normal [facility] Comment on above: Performed By: #### T 7, CMP, LIPID, TSH #### [facility] [address] [address] [address] Emily Hercules AST [Catalytic activity/Vol] 35 U/L Normal 14-36 [facility] Comment on above: Performed By: #### T 7, CMP, LIPID, TSH #### [facility] [address] [address] [address] Emily Hercules Bilirubin [Mass/Vol] 0.7 mg/dL Normal 0.2-1.3 [facility] Comment on above: Performed By: #### T 7, CMP, LIPID, TSH #### [facility] [address] [address] [address] Emily Hercules Calcium [Mass/Vol] 8.8 mg/dL Normal 8.4-10.2 [facility] Comment on above: Performed By: #### T 7, CMP, LIPID, TSH #### [facility] [address] [address] [address] Emily Hercules Chloride [Moles/Vol] 105 mmol/L Normal 98-107 [facility] Comment on above: Performed By: #### T 7, CMP, LIPID, TSH #### [facility] [address] [place] [address] Dr. Emily Hercules CO2 [Moles/Vol] 26.1 mmol/L Normal 22.0-30.0 [facility] Comment on above: Performed By: #### T 7, CMP, LIPID, TSH #### [facility] [address] [address] [address] Emily Hercules Creatinine [Mass/Vol] 1.34 mg/dL Critically high 0.52-1.04 [facility] Comment on above: Performed By: #### T 7, CMP, LIPID, TSH #### [facility] [address] [place] [address] Dr. Emily Hercules EGFR-AF BOTSWANAN 51 mL/min/1.73m2 Critically low >=60 [facility] Comment on above: Performed By: #### T 7, CMP, LIPID, TSH #### [facility] [address] [address] [address] Emily Hercules EGFR-NON AF BOTSWANAN 42 mL/min/1.73m2 Critically low >=60 [facility] Comment on above: Performed By: #### T 7, CMP, LIPID, TSH #### [facility] [address] [address] [address] Emily Hercules Globulin (S) [Mass/Vol] 3.4 g/dL Normal [facility] Comment on above: Performed By: #### T 7, CMP, LIPID, TSH #### [facility] [address] [address] [address] Emily Hercules Glucose [Mass/Vol] 92 mg/dL Normal 74-[address] [facility] Comment on above: Performed By: #### T 7, CMP, LIPID, TSH #### [facility] [address] [place] [address] [address] Emily Hercules Potassium [Moles/Vol] 3.8 mmol/L Normal 3.4-5.0 [facility] Comment on above: Performed By: #### T 7, CMP, LIPID, TSH #### [facility] [address] [address] [address] Emily Hercules Protein [Mass/Vol] 7.2 g/dL Normal 6.1-8.[address] [facility] Comment on above: Performed By: #### T 7, CMP, LIPID, TSH #### [facility] [address] [address] [address] Emily Hercules Sodium [Moles/Vol] 139 mmol/L Normal 137-[address] [facility] Comment on above: Performed By: #### T 7, CMP, LIPID, TSH #### [facility] [address] [address] [address] Emily Hercules Urea nitrogen [Mass/Vol] 21.0 mg/dL Critically high 7.0-17.0 [facility] Comment on above: Performed By: #### T 7, CMP, LIPID, TSH #### [facility] [address] [address] [address] Emily Hercules Urea nitrogen/Creatinine [Mass ratio] 15.7 mg/mg Normal [facility] Comment on above: Performed By: #### T 7, CMP, LIPID, TSH #### [facility] [address] [place] [address] Dr. Emily Hercules TSHon 09-02-2021 TSH 1.130 uIU/mL Normal 0.470-4.680 [facility] Comment on above: Performed By: #### T 7, CMP, LIPID, TSH #### [facility] [address] [place] [address] Dr. Emily Hercules TSH RANGE SEE BELOW Normal [facility] Comment on above: Result Comment: <0.3 4 UIU/ml HYPERTHYROID 0.34-5.60 UIU/ml EUTHYROID >5.60 UIU/ml HYPOTHYROID Performed By: #### T 7, CMP, LIPID, TSH #### [facility] [address] [place] [address] Dr. Emily Hercules BNPon 08-24-2021 Natriuretic peptide B (Bld) [Mass/Vol] 98.0 pg/mL Normal <=450.0 [facility] Comment on above: Performed By: #### C MP, BNP, TSH, HSTROPN #### [facility] [address] [place] [address] Dr. Emily Hercules CBC AUTO DIFFon 08-24-2021 BASO # 0.0 103/ul Normal 0.0-0.1 [facility] Comment on above: Performed By: #### C MP, BNP, TSH, HSTROPN #### [facility] [address] [place] [address] Dr. Emily Hercules Basophils/100 WBC (Bld) 0.6 % Normal 0.2-2.0 [facility] Comment on above: Performed By: #### C MP, BNP, TSH, HSTROPN #### [facility] [address] [place] [address] Dr. Emily Hercules EO # 0.3 103/ul Normal 0.0-0.7 [facility] Comment on above: Performed By: #### C MP, BNP, TSH, HSTROPN #### [facility] [address] [place] [address] Dr. Emily Hercules Eosinophils/100 WBC (Bld) 4.1 % Normal 0.9-7.0 [facility] Comment on above: Performed By: #### C MP, BNP, TSH, HSTROPN #### [facility] [address] [place] [address] Dr. Emily Hercules Erythrocyte distribution width (RBC) [Ratio] 13.6 % Normal 11.0-15.0 [facility] Comment on above: Performed By: #### C MP, BNP, TSH, HSTROPN #### [facility] [address] [place] [address] Dr. Emily Hercules Hematocrit (Bld) [Volume fraction] 39.4 % Normal 36.0-48.0 [facility] Comment on above: Performed By: #### C MP, BNP, TSH, HSTROPN #### [facility] [address] [place] [address] Dr. Emily Hercules Hemoglobin (Bld) [Mass/Vol] 13.4 g/dL Normal 12.0-16.0 [facility] Comment on above: Performed By: #### C MP, BNP, TSH, HSTROPN #### [facility] [address] [place] [address] Dr. Emily Hercules IG # 0.02 10e3/ul Normal 0.00-0.03 [facility] Comment on above: Performed By: #### C MP, BNP, TSH, HSTROPN #### [facility] [address] [place] [address] Dr. Emily Hercules IG % 0.3 % Normal 0.0-0.5 [facility] Comment on above: Performed By: #### C MP, BNP, TSH, HSTROPN #### [facility] [address] [place] [address] Dr. Emily Hercules LYMPH # 1.8 103/ul Normal 1.2-3.8 [facility] Comment on above: Performed By: #### C MP, BNP, TSH, HSTROPN #### [facility] [address] [place] [address] Dr. Emily Hercules Lymphocytes/100 WBC (Bld) 25.9 % Normal 20.5-60.0 [facility] Comment on above: Performed By: #### C MP, BNP, TSH, HSTROPN #### [facility] [address] [place] [address] Dr. Emily Hercules MANUAL DIFF REQ NO Normal [facility] Comment on above: Performed By: #### C MP, BNP, TSH, HSTROPN #### [facility] [address] [place] [address] Dr. Emily Hercules MCH (RBC) [Entitic mass] 29.9 pg Normal 26.7-34.0 [facility] Comment on above: Performed By: #### C MP, BNP, TSH, HSTROPN #### [facility] [address] [place] [address] Dr. Emily Hercules MCHC (RBC) [Mass/Vol] 34.0 g/dL Normal 29.9-35.2 [facility] Comment on above: Performed By: #### C MP, BNP, TSH, HSTROPN #### [facility] [address] [place] [address] Dr. Emily Hercules MCV (RBC) [Entitic vol] 87.9 fL Normal 81.0-99.0 [facility] Comment on above: Performed By: #### C MP, BNP, TSH, HSTROPN #### [facility] [address] [place] [address] Dr. Emily Hercules MONO # 0.4 103/ul Normal 0.3-0.8 [facility] Comment on above: Performed By: #### C MP, BNP, TSH, HSTROPN #### [facility] [address] [place] [address] Dr. Emily Hercules Monocytes/100 WBC (Bld) 5.8 % Normal 1.7-12.0 [facility] Comment on above: Performed By: #### C MP, BNP, TSH, HSTROPN #### [facility] [address] [place] [address] Dr. Emily Hercules NEUT # 4.4 103/ul Normal 1.4-6.5 [facility] Comment on above: Performed By: #### C MP, BNP, TSH, HSTROPN #### [facility] [address] [address] [address] Emily Hercules Neutrophils/100 WBC (Bld) 63.3 % Normal 43.0-75.0 [facility] Comment on above: Performed By: #### C MP, BNP, TSH, HSTROPN #### [facility] [address] [address] [address] Emily Hercules Platelet mean volume (Bld) [Entitic vol] 11.7 fL Normal 9.5-13.5 [facility] Comment on above: Performed By: #### C MP, BNP, TSH, HSTROPN #### [facility] [address] [address] [address] Emily Hercules PLT 122 103/ul Critically low 150-450 [facility] Comment on above: Performed By: #### C MP, BNP, TSH, HSTROPN #### [facility] [address] [address] [address] Emily Hercules RBC 4.48 106/ul Normal 4.20-5.40 [facility] Comment on above: Performed By: #### C MP, BNP, TSH, HSTROPN #### [facility] [address] [address] [address] Emily Hercules WBC 6.9 103/ul Normal 4.0-11.0 [facility] Comment on above: Performed By: #### C MP, BNP, TSH, HSTROPN #### [facility] [address] [place] [address] Dr. Emily Hercules CTA CHEST WO W [...] NATY BALDERRAMA Date: 2021-08-24 17:14 Normal [facility] Covid-19 PCR (CVDTBH)on 07-30 SARS-CoV-2 (COVID-19) RNA SUKHWINDER+probe Ql (Unsp spec) Not detected Normal NOT DETECTED [facility] Comment on above: Result Comment: This test is not yet approved or cleared by the [place] FDA. When there are no FDA-approved or cleared tests available, and other criteria are met, FDA can make tests available under an emergency access mechanism called an Emergency Use Authorization (EUA). The EUA for this test is supported by the [place] of Health and Human Service's (HHS's) declaration [...] #### C MP, BNP, TSH, HSTROPN #### [facility] [address] [place] [address] Dr. Emily Hercules LACTATE/LACTIC ACIDon 2020 Lactate [Moles/Vol] 0.5 mmol/L Critically low 0.7-2.0 [facility] Comment on above: Performed By: #### C MP, BNP, TSH, HSTROPN #### [facility] [address] [place] [address] Dr. Emily Hercules PROF 14(COMP METB)on 021 Albumin [Mass/Vol] 3.7 g/dL Normal 3.5-5.0 [facility] Comment on above: Performed By: #### C MP, BNP, TSH, HSTROPN #### [facility] [address] [place] [address] Dr. Emily Hercules Albumin/Globulin [Mass ratio] 1.0 {ratio} Normal [facility] Comment on above: Performed By: #### C MP, BNP, TSH, HSTROPN #### [facility] [address] [place] [address] Dr. Emily Hercules ALP [Catalytic activity/Vol] 63 U/L Normal 38-126 [facility] Comment on above: Performed By: #### C MP, BNP, TSH, HSTROPN #### [facility] [address] [place] [address] Dr. Emily Hercules ALT [Catalytic activity/Vol] 66 U/L Critically high 9-52 [facility] Comment on above: Performed By: #### C MP, BNP, TSH, HSTROPN #### [facility] [address] [place] [address] Dr. Emily Hercules Anion gap [Moles/Vol] 12.3 mmol/L Normal [facility] Comment on above: Performed By: #### C MP, BNP, TSH, HSTROPN #### [facility] [address] [place] [address] Dr. Emily Hercules AST [Catalytic activity/Vol] 48 U/L Critically high 14-36 [facility] Comment on above: Performed By: #### C MP, BNP, TSH, HSTROPN #### [facility] [address] [place] [address] Dr. Emily Hercules Bilirubin [Mass/Vol] 0.6 mg/dL Normal 0.2-1.3 [facility] Comment on above: Performed By: #### C MP, BNP, TSH, HSTROPN #### [facility] [address] [place] [address] Dr. Emily Hercules Calcium [Mass/Vol] 9.2 mg/dL Normal 8.4-10.2 [facility] Comment on above: Performed By: #### C MP, BNP, TSH, HSTROPN #### [facility] [address] [place] [address] Dr. Emily Hercules Chloride [Moles/Vol] 103 mmol/L Normal 98-107 [facility] Comment on above: Performed By: #### C MP, BNP, TSH, HSTROPN #### [facility] [address] [place] [address] Dr. Emily Hercules CO2 [Moles/Vol] 25.2 mmol/L Normal 22.0-30.0 [facility] Comment on above: Performed By: #### C MP, BNP, TSH, HSTROPN #### [facility] [address] [place] [address] Dr. Emily Hercules Creatinine [Mass/Vol] 1.49 mg/dL Critically high 0.52-1.04 [facility] Comment on above: Performed By: #### C MP, BNP, TSH, HSTROPN #### [facility] [address] [address] [address] Emily Hercules EGFR-AF BOTSWANAN 45 mL/min/1.73m2 Critically low >=60 [facility] Comment on above: Performed By: #### C MP, BNP, TSH, HSTROPN #### [facility] [address] [address] [address] Emily Herclues EGFR-NON AF BOTSWANAN 37 mL/min/1.73m2 Critically low >=60 [facility] Comment on above: Performed By: #### C MP, BNP, TSH, HSTROPN #### [facility] [address] [address] [address] Emily Hercules Globulin (S) [Mass/Vol] 3.6 g/dL Normal [facility] Comment on above: Performed By: #### C MP, BNP, TSH, HSTROPN #### [facility] [address] [place] [address] Dr. Emily Hercules Glucose [Mass/Vol] 100 mg/dL Normal 74-106 [facility] Comment on above: Performed By: #### C MP, BNP, TSH, HSTROPN #### [facility] [address] [place] [address] Dr. Emily Hercules Potassium [Moles/Vol] 4.5 mmol/L Normal 3.4-5.0 [facility] Comment on above: Performed By: #### C MP, BNP, TSH, HSTROPN #### [facility] [address] [place] [address] Dr. Emily Hercules Protein [Mass/Vol] 7.3 g/dL Normal 6.1-8.2 [facility] Comment on above: Performed By: #### C MP, BNP, TSH, HSTROPN #### [facility] [address] [place] [address] Dr. Emily Hercules Sodium [Moles/Vol] 136 mmol/L Critically low 137-145 [facility] Comment on above: Performed By: #### C MP, BNP, TSH, HSTROPN #### [facility] [address] [place] [address] Dr. Emily Hercules Urea nitrogen [Mass/Vol] 22.0 mg/dL Critically high 7.0-17.0 [facility] Comment on above: Performed By: #### C MP, BNP, TSH, HSTROPN #### [facility] [address] [place] [address] Dr. Emily Hercules Urea nitrogen/Creatinine [Mass ratio] 14.8 mg/mg Normal [facility] Comment on above: Performed By: #### C MP, BNP, TSH, HSTROPN #### [facility] [address] [place] [address] Dr. Emily Hercules PROTIMEon 08-24-2021 INR Coag (PPP) [Relative time] 1.08 {INR} Normal [facility] Comment on above: Performed By: #### C MP, BNP, TSH, HSTROPN #### [facility] [address] [place] [address] Dr. Emily Hercules INR GUIDELINES SEE BELOW Normal [facility] Comment on above: Result Comment: GUILLERMO RED INR: 2.0 - 3.0 CONDITIONS NOT LISTED BELOW 2.5 - 3.5 FOR PROSTHETIC HEART VALVE REPLACEMENT 2.5 - 3.5 RECURRENT THROMBOSIS Performed By: #### C MP, BNP, TSH, HSTROPN #### [facility] [address] [place] [address] Dr. Emily Hercules PT Coag (PPP) [Time] 11.6 s Normal 9.0-11.6 [facility] Comment on above: Performed By: #### C MP, BNP, TSH, HSTROPN #### [facility] [address] [place] [address] Dr. Emily Hercules PTTon 08-24-2021 aPTT Coag (Bld) [Time] 29.6 s Normal 22.3-36.2 [facility] Comment on above: Performed By: #### C MP, BNP, TSH, HSTROPN #### [facility] [address] [place] [address] Dr. Emily Hercules TROPONIN, HIGH SENSITIVITYon 08-24-2021 HSTROP 4.9 pg/mL Normal 4.0-35.5 [facility] Comment on above: Result Comment: CUT- OFF POINTS HAVE BEEN ESTABLISHED BASED ON THE FOURTH UNIVERSAL DEFINITIONS OF MYOCARDIAL INFARCTION. THE UPPER REFERENCE LIMIT (URL) OF TROPONIN, DEFINED THE 99TH PERCENTILE OF cTnI DISTRIBUTION IN A REFERENCE POPULATION, HAS BEEN CONFIRMED THE DECISION THRESHOLD FOR VT DIAGNOSIS. Performed By: #### C MP, BNP, TSH, HSTROPN #### [facility] [address] [address] [address] Emily Hercules HSTROP 7.0 pg/mL Normal 4.0-35.5 [facility] Comment on above: Result Comment: CUT- OFF POINTS HAVE BEEN ESTABLISHED BASED ON THE FOURTH UNIVERSAL DEFINITIONS OF MYOCARDIAL INFARCTION. THE UPPER REFERENCE LIMIT (URL) OF TROPONIN, DEFINED THE 99TH PERCENTILE OF cTnI DISTRIBUTION IN A REFERENCE POPULATION, HAS BEEN CONFIRMED THE DECISION THRESHOLD FOR VT DIAGNOSIS. Performed By: #### C MP, BNP, TSH, HSTROPN #### [facility] [address] [address] [address] Emily Hercules TSHon 08-24-2021 TSH 1.614 uIU/mL Normal 0.470-4.680 [facility] Comment on above: Performed By: #### C MP, BNP, TSH, HSTROPN #### [facility] [address] [address] [address] Emily Hercules TSH RANGE SEE BELOW Normal [facility] Comment on above: Result Comment: <0.3 4 UIU/ml HYPERTHYROID 0.34-5.60 UIU/ml EUTHYROID >5.60 UIU/ml HYPOTHYROID Performed By: #### C MP, BNP, TSH, HSTROPN #### [facility] [address] [address] [address] Emily Hercules US KARINE DOP LEG [...] MARCIAL BOB Date: 2021-08-24 16:22 Normal [facility] Test (Serum)on Test, Serum Negative Normal [facility] Comment on above: Performed By: #### 3 [id number] ####[facility] [address] [place] [address] CBC With Differentialon 04-28 Basophils Auto #/vol (Bld) 0.06 10*3/uL Normal 0.01-0.07 [facility] Comment on above: Performed By: #### 2 [id number] ####[facility] [address] [place] [address] Basophils/100 WBC Auto (Bld) 0.7 % Normal 0.1-1.2 [facility] Comment on above: Performed By: #### 2 [id number] ####[facility] [address] [place] [address] Eosinophils 0.51 10*3/uL High 0.04-0.50 [facility] Comment on above: Performed By: #### 2 [id number] ####[facility] [address] [place] [address] Eosinophils/100 leukocytes 6.1 % Normal 0.0-8.1 [facility] Comment on above: Performed By: #### 2 [id number] ####[facility] [address] [place] [address] Erythrocyte distribution width Auto Ratio (RBC) 13.2 % Normal 12.0-15.4 [facility] Comment on above: Performed By: #### 2 [id number] ####[facility] [address] [place] [address] Erythrocytes (RBC) 4.67 10*6/uL Normal 3.85-5.10 [facility] Comment on above: Performed By: #### 2 [id number] ####[facility] [address] [place] [address] Erythrocytes (RBC) 0.0 /100{WBCs} Normal [facility] Comment on above: Performed By: #### 2 [id number] ####[facility] [address] [place] [address] Erythrocytes (RBC) 0.00 10*3/uL Normal [facility] Comment on above: Performed By: #### 2 [id number] ####[facility] [address] [facility] [place] [address] Hematocrit (HCT) 40.8 % Normal 36.5-46.6 [facility]care Comment on above: Performed By: #### 2 [id number] ####[facility] [address] [facility] [place] [address] Hemoglobin mass conc (Bld) 13.6 g/dL Normal 11.8-15.3 [facility] Comment on above: Performed By: #### 2 610259 ####[facility] [address] [facility] [place] [address] Imm Grans Absolute 0.02 10*3/uL Normal 0.00-0.21 [facility] Comment on above: Performed By: #### 2 [id number] ####[facility] [address] [place] [address] Immature granulocytes #/vol (Bld) 0.2 % Normal [facility] Comment on above: Performed By: #### 2 [id number] ####[facility] [address] [place] [address] Lymphocytes 2.15 10*3/uL Normal 0.40-2.84 [facility] Comment on above: Performed By: #### 2 177010 ####[facility] [address] [place] [address] Lymphocytes/100 leukocytes 25.8 % Normal 15.7-50.5 [facility] Comment on above: Performed By: #### 2 [id number] ####[facility] [address] [facility] [place] [address] MCH 29.1 pg Normal 27.5-33.0 [facility] Comment on above: Performed By: #### 2 [id number] ####[facility] [address] [facility] [place] [address] MCHC mass conc (RBC) 33.3 g/dL Normal 30.1-35.0 [facility] Comment on above: Performed By: #### 2 [id number] ####[facility] [address] [place] [address] MCV 87.4 fL Normal 85.4-100.0 [facility] Comment on above: Performed By: #### 2 [id number] ####[facility] [address] [place] [address] Monocytes 0.57 10*3/uL Normal 0.25-0.83 [facility] re Comment on above: Performed By: #### 2 [id number] ####[facility] [address] [place] [address] Monocytes/100 leukocytes 6.9 % Normal 4.8-12.7 [facility] Comment on above: Performed By: #### 2 [id number] ####[facility] [address] [place] [address] Neutrophils 5.01 10*3/uL Normal 1.95-6.85 [facility] are Comment on above: Performed By: #### 2 [id number] ####[facility] [address] [place] [address] Neutrophils/100 leukocytes 60.3 % Normal 36.8-73.2 [facility] Comment on above: Performed By: #### 2 [id number] ####[facility] [address] [place] [address] Platelet mean volume (PMV) 12.0 fL Normal 9.9-12.1 [facility] Comment on above: Performed By: #### 2 [id number] ####[facility] [address] [place] [address] Platelets 207 10*3/uL Normal 155-404 [facility] Comment on above: Performed By: #### 2 [id number] ####[facility] [address] [place] [address] RDW SD 42.2 fL Normal 39.3-48.6 [facility] Comment on above: Performed By: #### 2 [id number] ####[facility] [address] [place] [address] WBC (Leukocytes) 8.3 10*3/uL Normal 4.4-9.9 [facility] Comment on above: Performed By: #### 2 [id number] ####[facility] [address] [place] [address] Partial Thromboplastin Timeo n 05-10-2017 aPTT 28.4 s Normal 22.1-35.3 [facility] Comment on above: Result Comment: Luis allen note new Heparin Therapeutic range effective 02/14/17.Heparin Therapeutic Range: 71 - 97 sec Performed By: #### 3 [id number] ####[facility] [address] [place] [address] Prothrombin Timeon 7 INR Coag RelTime (PPP) 1.00 {INR} Normal 0.85-1.16 [facility] Comment on above: Result Comment: Coum vanesa Therapy:1.5 - 2.0 Low Intensity Therapy2.0 - 3.0 Moderate Intensity Therapy2.5 - 3.5 High (1) Intensity Therapy3.0 - 4.0 High (2) Intensity Therapy Performed By: #### 3 [id number] ####[facility] [address] [place] [address] Prothrombin time (PT) Coag time (PPP) 13.1 s Normal 11.3-14.5 [facility] are Comment on above: Performed By: #### 3 [id number] ####[facility] [address] [place] [address] Vital Signs Date Time Vital Sign Value Performing Clinician Faci lity 12-24-2024 14:38-0500 Body height 160 cm Merlin Ardon MD Work Phone: [facility] 12-24-2024 14:38-0500 Body mass index (BMI) [Ratio] 33.3 kg/m2 Merlin Ardon MD Work Phone: [facility] 12-24-2024 14:38-0500 Body temperature 98.2 [degF] Merlin Ardon MD Work Phone: [facility] 12-24-2024 14:38-0500 Body weight 85.28 kg Merlin Ardon MD Work Phone: [facility] 12-24-2024 14:38-0500 Diastolic blood pressure 79 mm[Hg] Merlin Ardon MD Work Phone: [facility] 12-24-2024 14:38-0500 Heart rate 89 /min Merlin Ardon MD Work Phone: [facility] 12-24-2024 14:38-0500 Respiratory rate 14 /min Merlin Ardon MD Work Phone: [facility] 12-24-2024 14:38-0500 SaO2% (BldA) [Mass fraction] 98 % Merlin Ardon MD Work Phone: [facility] 12-24-2024 14:38-0500 Systolic blood pressure 117 mm[Hg] Merlin Ardon MD Work Phone: [facility] 11-24-2024 13:51-0500 Body mass index (BMI) [Ratio] 34.72 kg/m2 Merlin Ardon MD Work Phone: [facility] 11-24-2024 13:51-0500 Body weight 88.91 kg Merlin Ardon MD Work Phone: [facility] Encounters Encounter Date Encounter Type Care Provider Facility Start: 12-24-2024 End: 12-24-2024 Patient encounter procedure Merlin Ardon MD Work Phone: [facility] Comment on above: Diaphragmatic hernia without obstruction and without gangrene (Primary Dx) Start: 12-24-2024 End: 12-24-2024 ambulatory MERLIN ARDON Facility:[facility] Start: 12-24-2024 End: 12-24-2024 Subsequent hospital visit by physician [facility] Qb1 (I-Stat) Radiology Comment on above: Diaphragmatic hernia without obstruction and without gangrene [K44.9] Start: 11-24-2024 End: 11-24-2024 Telephone encounter Merlin Ardon MD Work Phone: [facility] Comment on above: Appointment Consult; Appointment Confirmation Request Outside [facility] Records; Received Outside Medical Records Start: 05-12-2022 End: 05-12-[address] CABRERA JONES Facility:[facility] Start: 09-20-2021 End: 09-20-[address] CABRERA JONES Facility:[facility] Start: 09-15-2021 End: 09-16-[address] CABRERA JONES Facility:[facility] Start: 09-02-2021 End: 09-03-[address] CABRERA JONES Facility:[facility] Start: 08-24-2021 End: 08-24-[address] MARCIAL BOB Facility:[facility] Start: 05-16-2017 End: 05-16-2017 Ambulatory Tito VALLE Facility:[facility] Start: 05-10-2017 Ambulatory Tito VALLE [...] Vaccine ( season) Covid-19 Vaccine ( season) [facility] Start: 06-29-2024 Covid-19 Vaccine ( season) Covid-19 Vaccine ( season) [facility] Start: 06-29-2024 Influenza vaccination Influenza Vacc ine (#1) [facility] Start: 2023 Pneumococcal Vaccine : 50+ (1 of 1 - PCV) Pneumococcal Vaccine: 50+ (1 of 1 - PCV) [facility] Start: 2023 Screening for malign ant neoplasm of lung Lung Cancer Screening [facility] Start: 2023 Shingrix Vaccine (1 of 2) Shingrix Vaccine (1 of 2) [facility] Start: 2018 Diabetes Screening Diabetes Screenin g [facility] Start: 2018 Lipid panel Lipid Screening [facility] Start: 2018 Screening for malign ant neoplasm of colon [facility] Start: 2013 Screening for malign ant neoplasm of breast Mammogram Screening [facility] Start: 1994 Screening for malign ant neoplasm of cervix Cervical Cancer Screening [facility] Start: 1992 Hepatitis B Vaccine (1 of 3 - 19+ 3-dose series) Hepatitis B Vaccine (1 of 3 - 19+ 3-dose series) [facility] Start: 1992 Urine microalbumin profile DTaP,Tdap,Td Vaccine (1 - Tdap) [facility] Start: 1991 Anxiety Screening Anxiety Screening [facility] Start: 1991 Depression Screening Depression Scre ening [facility] Start: 1991 Hepatitis C screening Hepatitis C Sc reening [facility] Start: 1991 HIV screening HIV Screening [facility] End: 12-24-2025 XR Esophagus Views W contrast PO XR ESOPHAGRAM Radiology Routine Diaphragmatic hernia without obstruction and without gangrene 1 Occurrences starting 11/24/2024 until 12/24/2025 [facility] Work Phone: Comment on above: 1 Occurrences starti ng 11/24/2024 until 12/24/2025 Immunizations Immunization Date Immunization Notes Care Provider Emmanuel mullen 06-28-2020 influenza virus vacc ine, unspecified formulation Gi (I-Stat) [facility] Payers Date Payer Category Payer Medicaid [id number] 2018 Medicare (Managed Care) [facility] [id number] 2018 Unknown [employer]AGE O [id number] 2018-Present [phone] [address] [place] [address] HMO [id number] 1975 Unknown [id number] 1973 Unknown [id number] 1973 Unknown [id number] 1973 Unknown [id number] 1973 Unknown [id number] 1959 Medicaid [id number] 1961 Unknown [id number] Medicare [id number] Social History Date Type Detail Facility Start: 11-24-2024 Tobacco smoking stat us NHIS Ex-smoker [facility] Start: 05-06-2001 End: 05-06-2019 History of tobacco use Current smoker [facility] Start: 05-06-2001 End: 05-06-2019 History of tobacco use Cigarette Smoker [facility] Start: 11-24-2024 End: 12-24-2024 Cigarettes smoked current (pack per day) - Reported 1.5 [facility] Start: 11-24-2024 Tobacco use and exposure Smoke less tobacco non-user [facility] Start: 11-24-2024 End: 12-24-2024 Alcoholic beverage intake [facility] Start: 11-24-2024 End: 12-24-2024 Tobacco use panel [facility] National Score (1-10 0), lower number is lower risk Not on file [facility] Start: 11-24-2024 Tobacco Comment [facility] Start: 1975 Sex assigned at Not on file [facility] Clinical Notes 03-01-2022 to 01-03-2025 Merlin Ardon MD - 01/03/2025 9:12 AM Travis Oreilly MD - 12/24/2024 2:45 PM Sonia Tracy RT(R) - 12/24/2024 1:20 PM ESTTelephone Encounter - Trice Louis - 11/24/2024 4:37 PM EST Note Date & Type Note Facility 01-03-2025 Note HNO ID: [id number] Author: MERLIN ARDON MD Service: ? Author Type: Physician Type: Progress Notes Filed: 01/03/2025 09:17 Note Text: I have read and reviewed the documentation and agree. I wish to add the followingI wish to add the following findings which will be communicated back to the requesting physician. Merlin Ardon MD [facility] STAFF PHYSICIAN NOTE OF PERSONAL INVOLVEMENT IN [...] 24, 2024 TIME OF SERVICE: 330 PM [facility] 01-03-2025 History of Presen t illness Narrative I have read and reviewed the documentation and agree. I wish to add the followingI wish to add the following findings which will be communicated back to the requesting physician. Merlin Ardon MD [facility] STAFF PHYSICIAN NOTE OF PERSONAL INVOLVEMENT IN [...] THORACIC SURGERY OUTPATIENT CONSULT NOTE Kiya Bhat [id number] Requesting Provider: [facility] Thoracic Physician: Merlin Ardon MD Chief Complaint: [...] personally performed by: Duglas Manjarrez Patient-Entered Questionnaire [facility] Esophageal Questionnaire 12/23/2024 Domain Symptom Raw [...] 6-30) Incomplete Incomplete documented in this encounter [facility] 12-24-2024 Note HNO ID: [id number] Author: TRAVIS MANJARREZ MD Service: ? Author Type: Fellow Type: Progress Notes Filed: 01/03/2025 09:17 Note Text: [facility] THORACIC SURGERY OUTPATIENT CONSULT NOTE Kiya Bhat [id number] Requesting Provider: Self Thoracic Physician: Merlin Ardon [...] personally performed by: Duglas Manjarrez Patient-Entered Questionnaire [facility] Esophageal Questionnaire 12/23/2024 Domain Symptom Raw [...] (Range 6-36) Incomplete (Range 6-30) Incomplete Incomplete [facility] 12-24-2024 History of Presen t illness Narrative [...] PATIENT PRESENTS WITH AN IMPLANTABLE OR ATTACHED CAT BREEDER: No RADIOLOGY DEPARTMENT: General X-ray: Exam(s) Completed: GI/ Procedure(s): Esophogram with barium contrast PERIPHERAL IV DATA: Not applicable SIGNED BY: RT Wil(Sybil) December 24, 2024 1:50 PM documented in this encounter [facility] 12-24-2024 Note HNO ID: [id number] Author: SONIA BENNETT RT(Sybil) Service: Radiology Author [...] PATIENT PRESENTS WITH AN IMPLANTABLE OR ATTACHED CAT BREEDER: No RADIOLOGY DEPARTMENT: General X-ray: Exam(s) Completed: GI/ Procedure(s): Esophogram with barium contrast PERIPHERAL IV DATA: Not applicable SIGNED BY: RT Wil(R) December 24, 2024 1:50 PM [facility] 11-24-2024 Telephone encounter Note Patient confirmed appointment scheduled with Dr. Ardon with barium on 12/24/24 [facility] Work Phone: 11-24-2024 Miscellaneous Notes Patient [...] office for scheduling. Please call pt at [phone]. Patient was informed consultation could be at [place] or [facility]: No Patient Registration: Registration complete/updated: yes Insurance card(s) scanned in [facility] with in the past year: No Pt's [place] is active. Ok to communicate to pt via [facility] [facility] yes Medical Records: Records in [facility] (internal CC records): Yes (old) Imaging in [facility] (internal CC records): Yes (old) Care Everywhere [...] triage Renae Elliott documented in this encounter [facility] 11-24-2024 Telephone encounter Note Received outside office note (scanned) to [facility]. Renae Chaudhry Radio Dispatcher [facility] Work Phone (unformatted): [phone] 11-24-2024 Miscellaneous Notes Received outside office note (scanned) to [facility]. Renae Chaudhry Radio Dispatcher Attempt #1 Requested Medical Records from the office of Dr. Cabrera Jones Spoke to: Jacki Phone #: [phone] Fax #: [phone] Jacki agreed to fax the last office note Renae Elliott November 24, 2024 2:12 PM documented in this encounter [facility] 11-24-2024 Telephone encounter Note Attempt #1 Requested Medical Records from the office of Dr. Cabrera Jones Spoke to: Jacki Phone #: [phone] Fax #: [phone] Jacki agreed to fax the last office note Renae Richa Elliott November 24, 2024 2:12 PM [facility] 11-24-2024 Telephone encounter Note Images from [...] with diet exercise) esophagram Jenni Mg RN [facility] 11-24-2024 Telephone encounter Note LOCAL PATIENT Received [facility] Staff Message from Earl Brar is former [...] office for scheduling. Please call pt at [phone]. Patient was informed consultation could be at [place] or [facility]: No Patient Registration: Registration complete/updated: yes Insurance card(s) scanned in [facility] with in the past year: No Pt's [facility] is active. Ok to communicate to pt via [facility] yes Medical Records: Records in [facility] (internal CC records): Yes (old) Imaging in [facility] (internal CC records): Yes (old) Care Everywhere [...] Yes, Thoracic NPM for triage Renae Elliott [facility] Work Phone (unformatted): [phone] 11-24-2024 Telephone encounter Note .RECEIVED CALL FROM: Patient PATIENT INFORMATION: Name: Kiya Bhat : 1975 (home) [phone] (cell) Email: [email or web address] Referring Provider: No referring provider defined for this encounter. Phone: N/A Fax: Requested Surgeon: Merlin Ardon M.D., Ph.D. Reason for appointment/diagnosis: Diaphragmatic hernia without obstruction and without gangrene Earl Brar November 24, 2024 11:32 AM [facility] 11-24-2024 Miscellaneous Notes .RECEIVED CALL FROM: Patient PATIENT INFORMATION: Name: Kiya Bhat : 1975 (home) [phone] (cell) Email: [email or web address] Referring Provider: No referring provider defined for this encounter. Phone: N/A Fax: Requested Surgeon: Merlin Ardon M.D., Ph.D. Reason for appointment/diagnosis: Diaphragmatic hernia without obstruction and without gangrene Earl Brar November 24, 2024 11:32 AM documented in this encounter [facility] 03-01-2022 Note Chief Complaint consultation for [...] 2: Mother and Brother. Heart disease: Mother. [facility] Comment on above: Result Comment: Elec tronically Signed By: FRANK GALLO, Hemal Moore\Date and Time Signed: 03/01/22 16:21 EDT Evaluation note Diagnosis Diaphragmatic hernia without obstruction and without gangrene- [facility]atic hernia without obstruction and without gangrene [facility] Diagnosis Diaphragmatic hernia without obstruction and without gangrene- Primary [facility] Diagnostic Procedure Only (Routine) - Authorized Specialty Diagnoses / Procedures Referred By Chandler berkowitz Referred To Contact XR IMAGING Diagnoses Diaphragmatic hernia without obstruction and without gangrene Procedures XR ESOPHAGRAM RADIOLOGIC EXAM ESOPHAGUS SINGLE CONTRAST STUDY Merlin Ardon MD [address] [place] [address] [place] [id number] Referral ID Status Reason Start Date Expiration Date Visits Requested Visits Authorized [id number] Authorized Auto-Generat ed Referral 11/24/2024 12/24/2025 1 1 [facility] Summary Purpose Family History No Family History Records FoundNo Family History Records FoundNo Family History Records FoundNo Family History Records Found Advance Directives No Advanced Directives Records FoundNo Advanced Directives Records FoundNo Advanced Directives Records FoundNo Advanced Directives Records Found Additional Source Comments INFORMATION SOURCE (unrecogn ized section and content) DATE CREATED AUTHOR 04/24/2018 [facility] DATE CREATED AUTHOR AUTHOR'S ORGANIZ ATION 03/03/2022 [facility] DATE CREATED AUTHOR AUTHOR'S ORGANIZ ATION 05/18/2022 [facility] DATE CREATED AUTHOR AUTHOR'S ORGANIZ ATION 01/05/2025 [facility] Source Comments (unrecognize d section and content) In the event this informatio n is protected by the Federal Confidentiality of Alcohol and Drug Abuse Patient Records regulations: The Federal rules restrict any use of the information to criminally investigate or prosecute any alcohol or drug abuse patient.[facility] the event this information is protected by the Federal Confidentiality of Alcohol and Drug Abuse Patient Records regulations: The Federal rules restrict any use of the information to criminally investigate or prosecute any alcohol or drug abuse patient.[facility] the event this information is protected by the Federal Confidentiality of Alcohol and Drug Abuse Patient Records regulations: The Federal rules restrict any use of the information to criminally investigate or prosecute any alcohol or drug abuse patient.[facility] Hospital[facility] the event this information is protected by the Federal Confidentiality of Alcohol and Drug Abuse Patient Records regulations: The Federal rules restrict any use of the information to criminally investigate or prosecute any alcohol or drug abuse patient.[facility] Hospital[facility] the event this information is protected by the Federal Confidentiality of Alcohol and Drug Abuse Patient Records regulations: The Federal rules restrict any use of the information to criminally investigate or prosecute any alcohol or drug abuse patient.[facility] Reason for Visit (unrecogniz ed section [...] ESOPHAGUS SINGLE CONTRAST STUDY Merlin Ardon MD [address] [place] [address] Phone: tel: [place] [id number] Referral ID Status Reason Start Date Expiration Date V isits Requested Visits Authorized [id number] Closed Auto-Generate d Referral 11/24/2024 12/24/2025 1 1 Reason Comments Consult Care Teams (unrecognized sec tion and content) Rn Chronic Relationship Specialty Start Date End Date Cabrera Jones MD [address] [place] [id number] PCP - General Family Medicine 11/24/24 Junior Araya Jr., MD [facility] [address] [place] [address] Referring 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/19 Rn Chronic Relationship Specialty Start Date End Date Cabrera Jones MD [address] [place] [address] PCP - General Family Medicine 11/24/24 Junior Araya Jr., MD [facility] [address] [place] [address] Referring 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/19 Rn Chronic Relationship Specialty Start Date End Date Cabrera Jones MD [address] [place] [address] PCP - General Family Medicine 11/24/24 Junior Araya Jr., MD [facility] [address] [place] [address] Referring 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/19 Rn Chronic Relationship Specialty Start Date End Date Cabrera Jones MD [address] [place] [address] PCP - [facility] 11/24/24 Junior Araya Jr., MD [address] [place], [place] [address] [facility] [place] [address] Referring 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/19 Rn Chronic Relationship Specialty [place] [address] [place] [id number] PCP - [facility] 11/24/24 Junior Araya Jr., MD [address] [place] [address] [place] [address] Referring 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/19 FOR RECORDS PERTAINING [...] BE BASED ON THE PRIMARY CLINICAL RECORDS. [facility] [employer] [facility]. provides no warranty or guarantee of the accuracy or completeness of information in this document.
== END 2025-02-06 10:37 | disposition home or self-care (01) ==
LOC: MRI 10:36
PROVIDERS: PCP Family Medicine; Visit Provider Family Medicine
DX: M54.12 Radiculopathy, cervical region (principal); M50.30 Other cervical disc degeneration, unspecified cervical region
CPT/HCPCS: 72141

== ENCOUNTER 2025-02-11 07:03 | Outpatient (RCR) | payer MEDICARE, MEDICAID, SELFPAY | END 2025-02-27 07:54 | disposition home or self-care (01) | LOC: PT 07:03 | PROVIDERS: PCP Family Medicine; Visit Provider Family Medicine | DX: M54.12 Radiculopathy, cervical region (principal); H81.399 Other peripheral vertigo, unspecified ear | CPT/HCPCS: 97012; 97140; 97162 ==

== ENCOUNTER 2025-04-11 08:16 | Emergency (ER) | payer MEDICARE, MEDICAID, SELFPAY ==
--- OUTSIDE RECORDS SUMMARY | 2025-02-06 11:22 | XMS_ITS ---
Author Organization [facility] in [place] Address [address] [place] [address] Care Team Providers Care Windshield Technician Name Role Phone Luis Angel Jones Primary Care Provider [phone] REASON FOR VISIT MRI results Encounters Encounter Location Date Provider Diagnosis [facility] [address] [place] [phone] 02/06/2025 Luis Angel Jones Plan Of Treatment Next Appt Details Provider Name:Luis Angel Francis Vickbharat, 10:30:00 AM, [address] [place], [address], Progress Notes * Kiya ALEJANDRA MDOB:[birth year] (49 yo F)Acc No.[id number]:02/06/2025 Patient: Tito Kiya RUIZ :1975 A ge:49 Y S ex:Female Address:[address] [place] [address], [phone] * true * Date: Generated for Katheryn vazquez/Davide/eTransmitting on: 0 04/11/2025 08:23 AM EDT
--- OUTSIDE RECORDS SUMMARY | 2025-02-10 06:30 | XMS_ITS ---
Author Organization [facility] in [place] Address [address] [place] [address] Care Team Providers Care Container Washer Name Role Phone Vickbharat Luis Angel Primary Care Provider Allergies No Known Allergies Reason For Referral Reason and vertigo tx Diagnosis 1 Cervical radiculopat hy (M54.12) Referral Organization [facility] Medicine Referring Provider First Name Luis Angel Referring Provider Last Name Karen Referring Provider Speciality Family Med icine Referred Provider [facility], Physical Therap y Referred Provider Specialty Physical The rapist Referral Priority Routine REASON FOR VISIT -3 Month Follow Up- Medications Medication SIG (Take, Route, Frequency, Duration) Notes Start Date End Date Status hydrOXYzine HCl 25 MG 1 tablet as needed Orally qid for 10 days 02/10/2025 Active Ventolin HFA 108 (90 Base) MCG/ACT 2 puff as needed Inhalation every 4 hrs 02/10/2025 Active Cephalexin 500 MG 2 tabs Orally bid fo r 10 days 02/10/2025 Active Terbinafine HCl 250 MG 1 tablet Orally O nce a day for 30 days 02/10/2025 Active Meloxicam 15 MG 1 tablet Orally Once a day for 30 days 01/20/2025 Active Ferrous Sulfate 325 (65 Fe) MG 1 tablet Orally Daily Active ZyrTEC 10 MG 1 tablet Orally Once a day Active tiZANidine HCl 4 MG 2 tabs Orally qhs fo r 30 days 01/16/2025 Active Pantoprazole Sodium 40 MG TAKE 1 TABLET BY MOUTH EVERY DAY for 90 Active Albuterol Sulfate HFA 108 (90 Base) MCG/ACT INHALE 2 PUFFS BY MOUTH EVERY 4 HOURS NEEDED for 17 Active Social History Tobacco Use: Social History Observation Description Date Details (start date - stop date) Former Smoker 10/29/2001 - 10/29/2019 Tobacco Use/Smoking Question Answer Notes Patient is a former smoker When did you start smoking? 10/29/2001 When did you stop smoking? 10/29/2019 How long has it been since you last smoked? 1-5 years AUDIT-C (Standard) Question Answer Notes Did you have a drink containing alcohol in the p ast year? No Points 0 Interpretation Negative Problems Problem Type SNOMED Code ICD Code Onset Dates Problem Status W/U Status Risk Notes Problem Vertigo ([id number]) Vertigo (R42) Active confirmed Problem Acute UTI (urinary tract infection) (N39.0) Active confirmed Vital Signs Blood pressure systolic 136 mm Hg 02/11/20 25 Blood pressure diastolic 86 mm Hg 025 Height 63 in 02/10/2025 Weight 197.0 lbs 02/10/2025 BMI 34.89 kg/m2 02/10/2025 Encounters Encounter Location Date Provider Diagnosis [facility] [address] [place] [address] 02/10/2025 Luis Angel Hoy Cervical radiculopat hy M54.12 ; Acute UTI (urinary tract infection) N39.0 ; Vertigo R42 and Onychomycosis B35.1 Assessments Encounter Date Diagnosis (ICD Code) Assessment Notes Treatment Notes Treatment Clinical Notes Section Notes 02/10/2025 Cervical radiculopathy (ICD-10 - M54.12) 02/10/2025 Acute UTI (urinary tract infection) (ICD-10 - N39.0) 02/10/2025 Vertigo (ICD-10 - R42) 02/10/2025 Onychomycosis (ICD-10 - B35.1) 02/10/2025 Other Recommended to rest and use a heating pad on the area. Take NSAIDs for pain as needed Plan Of Treatment Medication Medication Name Sig Start Date Stop Date Notes hydrOXYzine HCl 25 MG 1 tablet as needed Orally qid for 10 days 02/10/2025 Ventolin HFA 108 (90 Base) MCG/ACT 2 puff as needed Inhalation every 4 hrs 02/10/2025 Cephalexin 500 MG 2 tabs Orally bid fo r 10 days 02/10/2025 Adipex-P 37.5 MG 1 tablet before ansley kfast Orally Once a day 01/16/2025 Terbinafine HCl 250 MG 1 tablet Orally O nce a day for 30 days 02/10/2025 Treatment Notes Assessment Notes Other Recommended to rest and use a heating pad on the area. Take NSAIDs for pain as needed Referrals Referral Date Details 02/10/2025 02/10/2025, and sarah kim, Physical Therapy [facility] Next Appt Details Provider Name:Luis Angel Francis Vickbharat, 10:30:00 AM, [address] [place], [address], Medications Administered Medication Instructions Date of Administration Dosage Notes Ketorolac Tromethamine 02/10/2025 60 mg Orphenadrine Citrate 02/10/2025 60 mg Triamcinolone 40 mg/ml 02/10/2025 120 mg Progress Notes * Kiya ALEJANDRA MDOB:[birth year] (49 yo F)Acc No.[id number]:02/10/2025 Progress Note Patient: Kiya ELIZABETH Provider: Shira Jones ([facility])MD :1975 A ge:49 Y S ex:Female Date:02/10/2025 Address:[address] [place], [place] [id number] Check In:10:32 AM ESTCheck O ut:11:05 AM EST Subjective: * Chief Complaints: * - 3 Month Follow Up- * HPI: G eneral: pain n neck persisting - bnot respoinding to meds. B ack Pain: The patient complains of -. The symptoms have been present for 1-2 days. The patient believes symptoms are injury related No. The symptoms are mild. Symptomatic treatment has included heating pad, stretching. Associated symptoms include None. * ROS: G eneral/Constitutional: Lightheadedness d enies. C hange in appetite d enies. W eight Change d enies. C ardiovascular: Irregular heartbeat d enies. S welling in hands/feet?denies. R espiratory: Shortness of breath d enies. S hortness of breath with exertion d enies. W heezing d enies. M usculoskeletal: Comments S ganga ARBOLEDA for details. N eurologic: Dizziness d enies. F ainting d enies. H eadache?denies. * Active Problem List L50.9 Hives Modified On:06/07/2023 Status:confirmed Z00.00 Well adult Modified On:06/07/2023 Status:confirmed D69.6 Thrombocytopenia, un specified Modified On:08/20/2023 Status:confirmed J45.901 Asthma exacerbation Modified On:10/01/2023 Status:confirmed L25.9 Contact dermatitis Modified On:05/02/2024 Status:confirmed N20.0 Nephrolithiasis Modified On:07/28/2024 Status:confirmed J01.90 Acute sinusitis Modified On:10/16/2024 Status:confirmed E66.01 Morbid (severe) obes ity due to excess calories Modified On:11/12/2024 Status:confirmed M54.12 Cervical radiculopat hy Modified On:01/16/2025 Status:confirmed N39.0 Acute UTI (urinary t ract infection) Modified On:02/10/2025 Status:confirmed R42 Vertigo Modified On:02/10/2025 Status:confirmed * Medical History: * Surgical History: G allbladder Tubal Ligation Right Knee Scope Kidney Stones * Hospitalization/Major Diagno stic Procedure: D enies Past Hospitalization * Family History: F ather: alive. M other: alive, diagnosed with Diabetes mellitus without mention of complication, type II or unspecified type, not stated as uncontrolled, Unspecified essential hypertension, Unspecified heart disease. B rother(s): alive, diagnosed with Diabetes mellitus without mention of complication, type II or unspecified type, not stated as uncontrolled. S on(s): alive. 1 brother(s) - healthy. 3 son(s) - healthy. . * Social History: T obacco Use: T obacco Use/Smoking P atient is a f ormer smoker W hen did you start smoking? 0 10/29/2001 W hen did you stop smoking? 0 10/29/2019 H ow long has it been since you last smoked??1-5 years D rug/Alcohol: A EDGAR-C (Standard) D id you have a drink containing alcohol in the past year? N o P oints 0 I nterpretation N egative * Medications: T akingAdipex-P(Phentermine HCl) 37.5 MG Tablet 1 tablet before breakfast Orally Once a day Albuterol Sulfate HFA 108 (90 Base) MCG/ACT Aerosol Solution INHALE 2 PUFFS BY MOUTH EVERY 4 HOURS NEEDED Ferrous Sulfate 325 (65 Fe) MG Tablet 1 tablet Orally Daily Meloxicam 15 MG Tablet 1 tablet Orally Once a day Pantoprazole Sodium 40 MG Tablet Delayed Release TAKE 1 TABLET BY MOUTH EVERY DAY tiZANidine HCl 4 MG Tablet 2 tabs Orally qhs ZyrTEC(Cetirizine HCl) 10 MG Tablet Chewable 1 tablet Orally Once a day Medication List reviewed and reconciled with the patientTaking Adipex-P(Phentermine HCl) 37.5 MG Tablet 1 tablet before breakfast Orally Once a day Taking Albuterol Sulfate HFA 108 (90 Base) MCG/ACT Aerosol Solution INHALE 2 PUFFS BY MOUTH EVERY 4 HOURS NEEDED Taking Ferrous Sulfate 325 (65 Fe) MG Tablet 1 tablet Orally Daily Taking Meloxicam 15 MG Tablet 1 tablet Orally Once a day Taking Pantoprazole Sodium 40 MG Tablet Delayed Release TAKE 1 TABLET BY MOUTH EVERY DAY Taking tiZANidine HCl 4 MG Tablet 2 tabs Orally qhs Taking ZyrTEC(Cetirizine HCl) 10 MG Tablet Chewable 1 tablet Orally Once a day Medication List reviewed and reconciled with the patient * Allergies: N .K.D.A.no[Allergies Verified] Objective: * Vitals: W t:197.0lbs, Ht: 63 in, BP:136/86mm Hg, BMI:34.89Index, Ht-cm: 160.02 cm, Wt-k.36 kg. * Examination: G eneral Examination: GENERAL APPEARANCE: i n no acute distress, well developed, well nourished. LUNGS: clear to auscultation bilaterally. CARDIO: S1, S2 normal, no murmurs, rubs, gallops. MUSCULOSKELETAL: p oor rom in neck due to paoin bridger dexcreased ROM due to same. EXTREMITIES: no clubbing, cyanosis, or edema. NEUROLOGIC: alert, oriented to time, place, & person.? Assessment: * Assessment: 1. C ervical radiculopathy - M54.12 (Primary) 2 . A cute UTI (urinary tract infection) - N39.0 3 . V ertigo - R42 4 . O nychomycosis - B35.1 Plan: * Treatment: 2. O nychomycosis Start Terbinafine HCl Tablet, 250 MG, 1 tablet, Orally, Once a day, 30 days, 30 Tablet, Refills 2;?Start Ventolin HFA Aerosol Solution, 108 (90 Base) MCG/ACT, 2 puff as needed, Inhalation, every 4 hrs, 1, Refills 11. 3. O thers Notes: Recommended to rest and use a heating pad on the area. Take NSAIDs for pain as needed ? * Therapeutic Injections: Triamcinolone 40 mg/ml : 120 mg (Route: Intramuscular) given by JESUS MANUEL Velasquez on right buttock? Ketorolac Tromethamine : 60 mg (Route: Intramuscular) given by JESUS MANUEL Velasquez on left buttock? Orphenadrine Citrate : 60 mg (Route: Intramuscular) given by JESUS MANUEL Velasquez on left buttock * Procedure Codes: [id number] THERAP.INJ. OF MED. INTRAMUSCULAR OR [id number] TMC ACET,PER 10MG., Units: 12.00 [id number] NORFLEX,UP TO 60MG.[id number] TORADOL, PER 15 MG, Units: 4.00 * Preventive Medicine: Screenings/Counseling: B ND ACTION PLAN Above Normal BMI Follow-up D ietary management education, guidance, and counseling * * Sign off status: Completed Visit Status: C HK (Check Out) true * Provider: Shira Jones ([facility])MD Date: 0 02/10/2025 Generated for Agustini george/Rajig/eTransmitting on: 0 04/11/2025 08:23 AM EDT History and Physical Notes * HPI (History of Present Illness) Category Sub-Category Detail Notes Category Not es General pain n neck per sisting - bnot respoinding to meds Examination Category Sub-Category Detail Notes Category Not es General Examination GENERAL APPEARANCE: in no ac suraj distress, well developed, well nourished CARDIO: S1, S2 normal, no mu rmurs, rubs, gallops LUNGS: clear to auscultatio n bilaterally NEUROLOGIC: alert, oriented to t paola, place, & person EXTREMITIES: no clubbing, cyanosi s, or edema MUSCULOSKELETAL: poor rom in neck due to paoin bridger dexcreased ROM due to same Consultation Request Notes Referral Date Referring Provider Referred Provider Not es 02/10/2025 Luis Angel Jones TB, Physical Therapy and ve rtigo tx
--- OUTSIDE RECORDS SUMMARY | 2025-02-18 04:19 | XMS_ITS ---
Author Organization [facility] in [place] Address [address] [place] [address] Care Team Providers Care Back Tender Pulp Drier Name Role Phone Luis Angel Jones Primary Care Provider REASON FOR VISIT uti Medications Medication SIG (Take, Route, Fr equency, Duration) Notes Start Date End Date Status levoFLOXacin 500 MG 1 tablet Orally Once a day for 10 day(s) 02/18/2025 Active Encounters Encounter Location Date Provider Diagnosis [facility] [address] [place] [address] 02/18/2025 Luis Angel Jones Plan Of Treatment Medication Medication Name Sig Start Date Stop Date Notes levoFLOXacin 500 MG 1 tablet Orally Once a day for 10 day(s) 02/18/2025 Next Appt Details Provider Name:Luis Angel Jones, 10:30:00 AM, [address] [place], [address], Progress Notes * Kiya ALEJANDRA MDOB:[birth year] (49 yo F)Acc No.[id number]:02/18/2025 Patient: Tito CHRISTINNoe Kiya Francis :1975 A ge:49 Y S ex:Female Address:[address] [place] [address], [address] * Refills Start levoFLOXacin Tablet, 500 MG, Orally, 10, 1 tablet, Once a day, 10 day(s) * true * Date: Generated for Katheryn vazquez/Davide/Cornelia on: 0 04/11/2025 08:23 AM EDT
[2025-04-11 08:22] VITALS: BP 126/82; PULSE 78; TEMP 36.4; O2SAT 99; BMI 33.7
--- OUTSIDE RECORDS SUMMARY | 2025-04-11 08:23 | XMS_ITS | Clinical Summary ---
Author Organization [facility] Address [address] [place] [address] Care Team Providers Care Special Library Librarian Name Role Phone Marshal Faria MD, Junior Francis Unavailable [phone] Lance Jones MD Primary Care Provider [phone] Allergies No known active allergies Medications * This document contains information received from the source organization and may not represent a complete record from that organization. multivitamin (MULTIPLE VITAMINS) tablet Take 1 tablet by mouth once daily. 06/24/2019 Active diclofenac, EC, (VOLTAREN) 75 mg EC tablet Take 1 tablet by mouth twice daily. 06/24/2019 Active Omeprazole 40 mg capsule Take 1 capsule by mouth twice daily. 06/24/2019 Active ferrous sulfate 325 mg (65 mg iron) tablet Take 1 tablet by mouth twice daily. 06/24/2019 Active cholecalciferol (VITAMIN D-3) 5,000 unit tab Take 1 tablet by mouth once daily. 06/24/2019 Active calcium-carbona te-vitamin D3 (CALCIUM 500+D) 500 mg(1,250mg) -200 unit per tablet Take 1 tablet by mouth once daily. 06/24/2019 Active Ibuprofen 200 mg cap Take 1-2 capsules by mouth as needed (for pain). 06/24/[address] (PROTONIX) 40 mg tablet Take 1 tablet by mouth every afternoon. 11/05/2024 Active Cetirizine (ZYRTEC) 10 mg cap Take 10 mg by mouth once daily. Active Family History Medical History Relation Comments Diabetes Brother Hearing Loss Brother Kidney Disease Brother kidney stones Other Father not sure of medi mamie history Diabetes Mother Heart Attack Mother connective tissue disorder Mother Relation Status Comments Brother Alive Father Alive Mother Alive Social History Tobacco Use Types Packs/Day Years Used Date Smoking Tobacco: Former Cigarettes 1.5 18 0 05/06/2001 - 05/06/2019 Smokeless Tobacco: Never Tobacco Cessation:Counseling Given: Not Answered Comments:using E cig Alcohol Use Standard Drinks/Week Comments Not Currently 0 (1 standard drink = 0.6 oz pur e alcohol) Area Deprivation Index Answer Date Anastacio rded National Score (1-100), lower number is lower ri sk 80 12/24/2024 State Score (1-10), lower number is lower risk 7 12/24/2024 Data from: https://www.neighborhoodatlas.medicine.[facility].edu/. Last address used for calculation [address] 12/24/2024 Comments No Sex and Gender Information Value Date Recorded Sex Assigned at Not on file Legal Sex Female 8:51 AM EDT Gender Identity Not on file Sexual Orientation Not on file Last Filed Vital Signs Vital Sign Reading Time Taken Comments Blood Pressure 117/79 12/24/2024 2:38 PM EST Pulse 89 12/24/2024 2:38 PM EST Temperature 36.8 C (98.2 F) 12/24/2024 2:38 PM EST Respiratory Rate 14 12/24/2024 2:38 PM EST Oxygen Saturation 98% 12/24/2024 2:38 PM EST Inhaled Oxygen Concentration - - Weight 85.3 kg (188 lb) 12/24/2024 2:38 PM EST Height 160 cm (5' 3 ) 12/24/2024 2:38 PM EST Body Mass Index 33.3 12/24/2024 2:38 PM EST Plan of Treatment Health Maintenance Due Date Last Done Comments Anxiety Screening 1991 Depression Screening 1991 HIV Screening 1991 Hepatitis C Screening 1991 DTaP,Tdap,Td Vaccine (1 - Tdap) 1992 Hepatitis B Vaccine (1 of 3 - 19+ 3-dose series) 1992 Cervical Cancer Screening [address] M[address] Colonography 2018 Cologuard (FIT-DNA) 2018 Colonoscopy 2018 Colorectal Cancer Screening 2018 Diabetes Screening 2018 Fecal Occult Blood 2018 Lipid Screening 2018 Sigmoidoscopy 2018 Lung Cancer Screening 2023 Pneumococcal Vaccine: 50+ (1 of 1 - PCV) 2023 Shingrix Vaccine (1 of 2) 2023 Covid-19 Vaccine (3 - season) 2024, 01/28/2021 Medicare Advantage Annual Wellness Visit 10/29/2024 Influenza Vaccine (Season Ended) 2025 06/28/20 20, 01/06/2020 Insurance [facility] MEDICARE ADVANTAGE HMO MEDICAID [place] Care Teams Special Library Librarian Relationship Specialty Start Date End Date Lance Jones MD [address] [place] [id number] PCP - General Family Medicine 11/24/24 Junior Araya Jr., MD [address] [place] [address] [place] [address] Referring 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/19
--- OUTSIDE RECORDS SUMMARY | 2025-04-11 08:23 | XMS_ITS | CCD ---
Author Organization [facility] Care Team Providers Care Change Advisor Name Role Phone VALLE, M L Unavailable [...] Unavailable FAZAL, DR REES Primary Care Unavailable BELTON, DR LOREE Zimmerman Consulting Unavailable FAZAL, DR REES Primary Care Unavailable FAZAL, DR REES Admitting Unavailable FAZAL, DR REES Attending Unavailable FAZAL, DR REES Consulting Unavailable Marshal Faria MD, Ramon M Unavailable [phone] Cabrera Jones MD Primary Care Provider MERLIN ARDON Referring Unavailable CABRERA JONES Primary Care Unavailable MERLIN ARDON Attending Unavailable SELF Referring Unavailable CABRERA JONES Primary Care Unavailable Medications Current Medications Medication Drug Class(es) Dates Sig (Normalized) Sig (Original) calcium carbonate 1250 mg / cholecalciferol 200 unt oral tablet (5 sources) Vitamin D Start: 06-24-2019 take 1 tablet by mouth once daily jwgvvdj-ksncjkaea-ao tamin D3 (CALCIUM 500+D) 500 mg(1,250mg) -200 [...] 08-26-2021 Episodic Other aftercare (1 source) Other mcfp (current) drug therapy; 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] Onset: 08-26-2021 Episodic Other [...] Test Name Value Interpretation Reference Range Facility [facility] 12-24-2024 CNOV Office Visit (KATE ) KIYA BHAT ([id number]) 1975 F Date Time Provider Department 12/24/24 2:15 PM MERLIN ARDON During your visit today, we recorded the following information about you: Temperature Pulse Respiration Blood pressure 98.2 degrees 89/minute 14/minute 117/79 Weight Height 85.3 kg 1.6 m Travis Manjarrez MD 01/03/2025 9:17 AM Signed [facility] TH[facility] OUTPATIENT CONSULT NOTE Kiya Bhat [id number] Requesting Provider: Self Thoracic Physician: Merlin Ardon [...] personally performed by: Duglas Manjarrez Patient-Entered Questionnaire [facility] Esophageal Questionnaire 12/23/2024 Domain Symptom Raw Score [...] the following (more content not included)... Normal [facility] XR ESOPHAGRAMon 12-24-2024 XR ESOPHAGRAM * [...] with organoaxial orientation. No demonstrated gastroesophageal reflux. Cardiovascular Physician Assistant: [facility] Transcribe Date/Time: Dec 24 2024 2:30P Dictated by : ALANNA FOSTER MD This examination was interpreted and the report reviewed and electronically signed by: LOREE VALDEZ MD on Dec 24 2024 3:55PM EST [id number] Normal [facility] XR Esophagus Views W contras t Thad 12-24-2024 IMPRESSION: Large hiatal hernia (type III) with organoaxial orientation. No demonstrated gastroesophageal reflux. Cardiovascular Physician Assistant: [facility] Transcribe Date/Time: Dec 24 2024 2:30P [...] the entire procedure. DIVISION OF RADIOLOGY Provider, [facility] - 12/24/2024 * * *Final Report* [...] with organoaxial orientation. No demonstrated gastroesophageal reflux. Cardiovascular Physician Assistant: [facility] Transcribe Date/Time: Dec 24 2024 2:30P Dictated by : ALANNA FOSTER MD This examination was interpreted and the report reviewed and electronically signed by: LOREE VALDEZ MD on Dec 24 2024 3:55PM EST [facility] Radiology Study observation (narrative) [facility] XR Esophagus Views W jhonatan berkowitz POOrdered By: [facility]cf Provider on 12-24-2024 [facility] CNPNon 11-24-2024 CNPN Telephone (KATE) KIYA BHAT ([id number]) 1975 F Date Time Provider Department 11/24/24 MERLIN ARDON During your visit today, we recorded the following information about you: Weight 88.9 kg Renae Holly 11/24/2024 1:28 PM Signed LOCAL PATIENT Received [place] [facility]FT Staff Message from Earl Brar is former [...] office for scheduling. Please call pt at [phone]. Patient was informed consultation could be at [facility] or [facility] [place]: No Patient Registration: Registration complete/updated: yes Insurance card(s) scanned in the Shelf with in the past year: No Pt's [employer] is active. Ok to communicate to pt via MyChart yes Medical Records: Records in [facility] (internal CC records): Yes (old) Imaging in [facility] (internal CC records): Yes (old) [...] Reason for Visit: Consult [173] Appointment Confirmation [[id number]] Primary Visit Diagnosis:Diaphragmat ic hernia without obstruction and without gangrene [K44.9] Order(s):XR ESOPHAGRAM [[id number]] Order #: [id number] FUTURE Prescriptions as of 11/24/2024 - multivitamin [...] 1 tablet by mouth once daily. - iqlkiwq-rieopnxkp-yrz dunaway D3 (CALCIUM 500+D) 500 mg(1,250mg) -200 unit per tablet Take 1 tablet by mouth once daily. - Ibuprofen 200 mg cap (more content not included)... [facility] ([id number]) 1975 F Date Time Provider Department 11/24/24 MERLIN ARDON During your visit today, we recorded the following information about you: Sania Hollyria 11/24/2024 2:15 PM Signed Attempt #1 Requested Medical Records from the office of Dr. Cabrera Jones Spoke to: Jacki Phone #: [phone] Fax #: [phone] Jacki agreed to fax the last office note Renae [place] November 24, 2024 2:12 PM Richa Elliott Renae 11/24/2024 4:06 PM Signed Received outside office note (scanned) to [facility]. Renae Chaudhry Surgical Technician Allergies As of Date: 11/24/2024 (No Known Allergies) Date Reviewed: 10/08/2019 Reviewed by: Darya Tony (Sara) - Fully Assessed Reason for Visit: Request Outside Medical Records [[id number]] Received Outside Medical Records [[id number]] Prescriptions as of 11/24/2024 - multivitamin (MULTIPLE [...] 1 tablet by mouth once daily. - ggwqbjb-fwyfxcpap-kvj dunaway D3 (CALCIUM 500+D) 500 mg(1,250mg) -200 unit per tablet Take 1 tablet by mouth once daily. - Ibuprofen 200 mg cap Take 1-2 capsules by mouth as needed (for pain). Problem List As Of Date: 11/24/2024 (None) Encounter Status:Closed by RICHA ELLIOTTSANIARENAE on 11/24/24 [facility] ([id number]) 1975 F Date Time Provider Department 11/24/24 MERLIN ARDON During your visit today, we recorded the following information about you: Earl Brar 11/24/2024 11:33 AM Signed .RECEIVED CALL FROM: Patient PATIENT INFORMATION: Name: Kiya Bhat : 1975 (home) [phone] (cell) Email: [email or web address] Referring Provider: No referring provider defined for [...] 1 tablet by mouth once daily. - llarowp-ugcinjvos-mug dunaway D3 (CALCIUM 500+D) 500 mg(1,250mg) -200 unit per tablet Take 1 tablet by mouth once daily. - Ibuprofen 200 mg cap Take 1-2 capsules by mouth as needed (for pain). Problem List As Of Date: 11/24/2024 (None) Encounter Status:Closed by EARL BRAR on 11/24/24 Normal [facility] Covid-19 PCR (CVDTBH)on 04-28 SARS-CoV-2 (COVID-19) RNA SUKHWINDER+probe Ql (Unsp spec) Not detected Normal NOT DETECTED [facility] Comment on above: Result Comment: This test is not yet approved or cleared by the [place] FDA. When there are no FDA-approved or cleared tests available, and other criteria are met, FDA can make tests available under an emergency access mechanism called an Emergency Use Authorization (EUA). The EUA for this test is supported by the Patient Services Assistant of Health and Human Service's (HHS's) declaration [...] #### C MP, BNP, TSH, HSTROPN #### [facility] [address] [place] [address] Dr. Emily Hercules Facesheeton 03-02-2022 Facesheet [id number] .00CD:127 Normal [facility] Physician Referralon 022 Physician Referral [id number]. [id number]:127 Normal [facility] 08[facility]30 SARS-CoV-2 (COVID-19) RNA SUKHWIDNER+probe Ql (Unsp spec) Not detected Normal NOT DETECTED [facility] Comment on above: Result Comment: This test is not yet approved or cleared by the [place] FDA. When there are no FDA-approved or cleared tests available, and other criteria are met, FDA can make tests available under an emergency access mechanism called an Emergency Use Authorization (EUA). The EUA for this test is supported by the Patient Services Assistant of Health and Human Service's (HHS's) declaration [...] consistent with SARS-CoV-2. Performed By: #### C [facility] #### [facility] [address] [place] [address] Dr. Emily Hercules MG MAMM SCREEN 3D SHELLY CADon 09-15-2021 MG MAMM SCREEN 3D SHELLY CAD Patient: KIYA BHAT Exam Date: 09/15/2021 : 1975 Gender:F Ordering : DR CABRERA JONES . Admission #: [id number] Family : Order #: [id number] CLICK HERE TO VIEW EXAM RADIOLOGY REPORT PROCEDURE: MAMMOGRAM SCREENING 3D BILATERAL CAD COMPARISON: None. INDICATIONS: Screening mammography Calculator Name NCI Breast Cancer Risk Assessment Tool 5 Year Breast Cancer Risk 0.70% Lifetime Breast Cancer Risk 6.70% Personal Breast Cancer No Personal Ovarian Cancer No Treatments None Family Cancers Grandmother-maternal with leukemia cancer at age 38. LOCATION: [facility] BREAST COMPOSITION: Scattered areas fibroglandular density. FINDINGS: [...] MD on 09/15/2021 at 11:59 Normal [facility] FSHon 09-03-2021 FSH 8.8 mIU/mL Normal [facility] Comment on above: Result Comment: Adul t Female: Follicular phase 3.5 - 12.5 Ovulation phase 4.7 - 21.5 Luteal phase 1.7 - 7.7 Postmenopausal 25.8 - 134.8 Performed By: #### L [facility] #### [facility] [address] [place] [address] Dr. Emily Hercules INSULINon 09-03-2021 Insulin 19.4 uIU/mL Normal 2.6-24.9 [facility] Comment on above: Performed By: #### C MP, BNP, TSH, HSTROPN #### [facility] [address] [place] [address] Dr. Emily Hercules CBC AUTO DIFFon 09-02-2021 BASO # 0.1 103/ul Normal 0.0-0.1 [facility] Comment on above: Performed By: #### C BC #### [facility] [address] [place] [address] Dr. Emily Hercules Basophils/100 WBC (Bld) 0.7 % Normal 0.2-2.0 [facility] Comment on above: Performed By: #### C BC #### [facility] [address] [place] [address] Dr. Emily Hercules EO # 0.3 103/ul Normal 0.0-0.7 [facility] Comment on above: Performed By: #### C BC #### [facility] [address] [place] [address] Dr. Emily Hercules Eosinophils/100 WBC (Bld) 3.8 % Normal 0.9-7.0 [facility] Comment on above: Performed By: #### C BC #### [facility] [address] [place] [address] Dr. Emily Hercules Erythrocyte distribution width (RBC) [Ratio] 13.6 % Normal 11.0-15.0 [facility] Comment on above: Performed By: #### C BC #### [facility] [address] [place] [address] Dr. Emily Hercules Hematocrit (Bld) [Volume fraction] 42.6 % Normal 36.0-48.0 [facility] Comment on above: Performed By: #### C BC #### [facility] [address] [place] [address] Dr. Emily Hercules Hemoglobin (Bld) [Mass/Vol] 14.5 g/dL Normal 12.0-16.0 [facility] Comment on above: Performed By: #### C BC #### [facility] [address] [place] [address] Dr. Emily Hercules IG # 0.08 10e3/ul Critically high 0.00-0.03 [facility] Comment on above: Performed By: #### C BC #### [facility] [address] [place] [address] Dr. Emily Hercules IG % 1.0 % Critically high 0.0-0.5 [facility] Comment on above: Performed By: #### C BC #### [facility] [address] [place] [address] Dr. Emily Hercules LYMPH # 2.2 103/ul Normal 1.2-3.8 [facility] Comment on above: Performed By: #### C BC #### [facility] [address] [place] [address] Dr. Emily Hercules Lymphocytes/100 WBC (Bld) 27.4 % Normal 20.5-60.0 [facility] Comment on above: Performed By: #### C BC #### [facility] [address] [place] [address] Dr. Emily Hercules MANUAL DIFF REQ NO Normal [facility] Comment on above: Performed By: #### C BC #### [facility] [address] [place] [address] Dr. Emily Hercules MCH (RBC) [Entitic mass] 30.2 pg Normal 26.7-34.0 [facility] Comment on above: Performed By: #### C BC #### [facility] [address] [place] [address] Dr. Emily Hercules MCHC (RBC) [Mass/Vol] 34.0 g/dL Normal 29.9-35.2 [facility] Comment on above: Performed By: #### C BC #### [facility] [address] [place] [address] Dr. Emily Hercules MCV (RBC) [Entitic vol] 88.8 fL Normal 81.0-99.0 [facility] Comment on above: Performed By: #### C BC #### [facility] [address] [address] [address] Emily Hercules MONO # 0.5 103/ul Normal 0.3-0.8 [facility] Comment on above: Performed By: #### C BC #### [facility] [address] [address] [address] Emily Hercules Monocytes/100 WBC (Bld) 6.2 % Normal 1.7-12.0 [facility] Comment on above: Performed By: #### C BC #### [facility] [address] [address] [address] Emily Hercules NEUT # 4.9 103/ul Normal 1.4-6.5 [facility] Comment on above: Performed By: #### C BC #### [facility] [address] [place] [address] Dr. Emily Hercules Neutrophils/100 WBC (Bld) 60.9 % Normal 43.0-75.0 [facility] Comment on above: Performed By: #### C BC #### [facility] [address] [place] [address] Dr. Emily Hercules Platelet mean volume (Bld) [Entitic vol] 11.6 fL Normal 9.5-13.5 [facility] Comment on above: Performed By: #### C BC #### [facility] [address] [place] [address] Dr. Emily Hercules PLT 180 103/ul Normal 150-450 [facility] Comment on above: Performed By: #### C BC #### [facility] [address] [place] [address] Dr. Emily Hercules RBC 4.80 106/ul Normal 4.20-5.40 [facility] Comment on above: Performed By: #### C BC #### [facility] [address] [place] [address] Dr. Emily Hercules WBC 8.1 103/ul Normal 4.0-11.0 [facility] Comment on above: Performed By: #### C BC #### [facility] [address] [address] [address] Emily Hercules FREE THYROXINE INDEX T7on FTI 3.47 Normal [facility] Comment on above: Performed By: #### T 7, CMP, LIPID, TSH #### [facility] [address] [address] [address] Emily Hercules T3U 35.0 % Normal 23.5-40.5 [facility] Comment on above: Performed By: #### T 7, CMP, LIPID, TSH #### [facility] [address] [address] [address] Emily Hercules T4 [Mass/Vol] 9.90 ug/dL Normal 5.53-11.00 [facility] Comment on above: Performed By: #### T 7, CMP, LIPID, TSH #### [facility] [address] [place] [address] Dr. Emily Hercules GLYCOHEMOGLOBIN A1Con 2020 ADA RECOMMENDATION ADA THERAPEUTIC TARGET 6.0 - 7.0 ACTION SUGGESTED > 7.0 Normal [facility] Comment on above: Performed By: #### C MP, BNP, TSH, HSTROPN #### [facility] [address] [address] [address] Emily Hercules Glucose [Mass/Vol] 114 mg/dL Normal [facility] Comment on above: Performed By: #### C MP, BNP, TSH, HSTROPN #### [facility] [address] [place] [address] Dr. Emily Hercules HbA1c (Bld) [Mass fraction] 5.6 % Normal <=6.0 [facility] Comment on above: Performed By: #### C MP, BNP, TSH, HSTROPN #### [facility] [address] [place] [address] Dr. Emily Hercules IRONon 09-02-2021 Iron [Mass/Vol] 111.0 ug/dL Normal 37.0-170.0 [facility] Comment on above: Performed By: #### C MP, BNP, TSH, HSTROPN #### [facility] [address] [address] [address] Emily Hercules LIPID PROFILEon 09-02-2021 CHOL-HDL RATIO NORM SEE BELOW Normal [facility] Comment on above: Result Comment: 3.3 - 4.4 LOW RISK 4.4 - 7.1 AVERAGE RISK 7.1 - 11.0 MODERATE RISK >11.0 HIGH RISK Performed By: #### C MP, BNP, TSH, HSTROPN #### [facility] [address] [address] [address] Emily Hercules Cholesterol [Mass/Vol] 183 mg/dL Normal <=200 [facility] Comment on above: Performed By: #### C MP, BNP, TSH, HSTROPN #### [facility] [address] [address] [address] Emily Hercules Cholesterol in HDL [Mass/Vol] 43 mg/dL Normal [facility] Comment on above: Performed By: #### C MP, BNP, TSH, HSTROPN #### [facility] [address] [address] [address] Emily Hercules Cholesterol in LDL [Mass/Vol] 109.0 mg/dL Normal [facility] Comment on above: Performed By: #### C MP, BNP, TSH, HSTROPN #### [facility] [address] [place] [address] Dr. Emily Hercules Cholesterol.total/Ch olesterol in HDL [Mass ratio] 4.3 {ratio} Normal [facility] Comment on above: Performed By: #### C MP, BNP, TSH, HSTROPN #### [facility] [address] [address] [address] Emily Hercules HDL NORMAL > or = 60 mg/dl - LO W CARDIOVASCULAR RISK <40 mg/dl - HIGH CARDIOVASCULAR RISK Normal [facility] Comment on above: Performed By: #### C MP, BNP, TSH, HSTROPN #### [facility] [address] [address] [address] Emily Hercules LDL CALC NORMAL SEE BELOW Normal [facility] Comment on above: Result Comment: <100 mg/dl OPTIMAL 100 - 129 mg/dl NEAR OR ABOVE OPTIMAL 130 - 159 mg/dl BORDERLINE HIGH 160 - 189 mg/dl HIGH >190 mg/dl VERY HIGH Performed By: #### C MP, BNP, TSH, HSTROPN #### [facility] [address] [address] [address] Emily Hercules Triglyceride [Mass/Vol] 155 mg/dL Critically high <=150 [facility] Comment on above: Performed By: #### C MP, BNP, TSH, HSTROPN #### [facility] [address] [address] [address] Emily Hercules VLDL CALC 31.0 mg/dL Normal [facility] Comment on above: Performed By: #### C MP, BNP, TSH, HSTROPN #### [facility] [address] [address] [address] Emily Hercules PROF 14(COMP METB)on 021 Albumin [Mass/Vol] 3.8 g/dL Normal 3.5-5.0 [facility] Comment on above: Performed By: #### T 7, CMP, LIPID, TSH #### [facility] [address] [address] [address] Emily Hercules Albumin/Globulin [Mass ratio] 1.1 {ratio} Normal [facility] Comment on above: Performed By: #### T 7, CMP, LIPID, TSH #### [facility] [address] [address] [address] Emily Hercules ALP [Catalytic activity/Vol] 57 U/L Normal 38-126 [facility] Comment on above: Performed By: #### T 7, CMP, LIPID, TSH #### [facility] [address] [address] [address] Emily Hercules ALT [Catalytic activity/Vol] 57 U/L Critically high 9-52 [facility] Comment on above: Performed By: #### T 7, CMP, LIPID, TSH #### [facility] [address] [address] [address] Emily Hercules Anion gap [Moles/Vol] 11.7 mmol/L Normal [facility] Comment on above: Performed By: #### T 7, CMP, LIPID, TSH #### [facility] [address] [address] [address] Emily Hercules AST [Catalytic activity/Vol] 35 U/L Normal 14-36 [facility] Comment on above: Performed By: #### T 7, CMP, LIPID, TSH #### [facility] [address] [address] [address] Emily Hercules Bilirubin [Mass/Vol] 0.7 mg/dL Normal 0.2-1.3 [facility] Comment on above: Performed By: #### T 7, CMP, LIPID, TSH #### [facility] [address] [address] [address] Emily Hercules Calcium [Mass/Vol] 8.8 mg/dL Normal 8.4-10.2 [facility] Comment on above: Performed By: #### T 7, CMP, LIPID, TSH #### [facility] [address] [address] [address] Emily Hercules Chloride [Moles/Vol] 105 mmol/L Normal 98-107 [facility] Comment on above: Performed By: #### T 7, CMP, LIPID, TSH #### [facility] [address] [place] [address] Dr. Emily Hercules CO2 [Moles/Vol] 26.1 mmol/L Normal 22.0-30.0 [facility] Comment on above: Performed By: #### T 7, CMP, LIPID, TSH #### [facility] [address] [address] [address] Emily Hercules Creatinine [Mass/Vol] 1.34 mg/dL Critically high 0.52-1.04 [facility] Comment on above: Performed By: #### T 7, CMP, LIPID, TSH #### [facility] [address] [place] [address] Dr. Emily Hercules EGFR-AF COMORAN 51 mL/min/1.73m2 Critically low >=60 [facility] Comment on above: Performed By: #### T 7, CMP, LIPID, TSH #### [facility] [address] [address] [address] Emily Hercules EGFR-NON AF COMORAN 42 mL/min/1.73m2 Critically low >=60 [facility] Comment on above: Performed By: #### T 7, CMP, LIPID, TSH #### [facility] [facility] [address] [address] [address] Emily Hercules Globulin (S) [Mass/Vol] 3.4 g/dL Normal [facility] Comment on above: Performed By: #### T 7, CMP, LIPID, TSH #### [facility] [address] [address] [address] Emily Hercules Glucose [Mass/Vol] 92 mg/dL Normal 74-106 [facility] Comment on above: Performed By: #### T 7, CMP, LIPID, TSH #### [facility] [address] [address] [address] Emily Hercules Potassium [Moles/Vol] 3.8 mmol/L Normal 3.4-5.0 [facility] Comment on above: Performed By: #### T 7, CMP, LIPID, TSH #### [facility] [address] [address] [address] Emily Hercules Protein [Mass/Vol] 7.2 g/dL Normal 6.1-8.2 [facility] Comment on above: Performed By: #### T 7, CMP, LIPID, TSH #### [facility] [address] [address] [address] Emily Hercules Sodium [Moles/Vol] 139 mmol/L Normal 137-145 [facility] Comment on above: Performed By: #### T 7, CMP, LIPID, TSH #### [facility] [address] [address] [address] Emily Hercules Urea nitrogen [Mass/Vol] 21.0 mg/dL Critically high 7.0-17.0 [facility] Comment on above: Performed By: #### T 7, CMP, LIPID, TSH #### [facility] [address] [address] [address] Emily Hercules Urea nitrogen/Creatinine [Mass ratio] 15.7 mg/mg Normal [facility] Comment on above: Performed By: #### T 7, CMP, LIPID, TSH #### [facility] [address] [place] [address] Dr. Emily Hercules TSHon 09-02-2021 TSH 1.130 uIU/mL Normal 0.470-4.680 [facility] Comment on above: Performed By: #### T 7, CMP, LIPID, TSH #### [facility] [address] [place] [address] Dr. Emily Hercules TSH RANGE SEE BELOW Normal [facility] Comment on above: Result Comment: <0.3 4 UIU/ml HYPERTHYROID 0.34-5.60 UIU/ml EUTHYROID >5.60 UIU/ml HYPOTHYROID Performed By: #### T 7, CMP, LIPID, TSH #### [facility] [address] [place] [address] Dr. Emily Hercules BNPon 08-24-2021 Natriuretic peptide B (Bld) [Mass/Vol] 98.0 pg/mL Normal <=450.0 [facility] Comment on above: Performed By: #### C MP, BNP, TSH, HSTROPN #### [facility] [address] [place] [address] Dr. Emily Hercules CBC AUTO DIFFon 08-24-2021 BASO # 0.0 103/ul Normal 0.0-0.1 [facility] Comment on above: Performed By: #### C MP, BNP, TSH, HSTROPN #### [facility] [address] [place] [address] Dr. Emily Hercules Basophils/100 WBC (Bld) 0.6 % Normal 0.2-2.0 [facility] Comment on above: Performed By: #### C MP, BNP, TSH, HSTROPN #### [facility] [address] [place] [address] Dr. Emily Hercules EO # 0.3 103/ul Normal 0.0-0.7 [facility] Comment on above: Performed By: #### C MP, BNP, TSH, HSTROPN #### [facility] [address] [place] [address] Dr. Emily Hercules Eosinophils/100 WBC (Bld) 4.1 % Normal 0.9-7.0 [facility] Comment on above: Performed By: #### C MP, BNP, TSH, HSTROPN #### [facility] [address] [place] [address] Dr. Emily Herucles Erythrocyte distribution width (RBC) [Ratio] 13.6 % Normal 11.0-15.0 [facility] Comment on above: Performed By: #### C MP, BNP, TSH, HSTROPN #### [facility] [address] [place] [address] Dr. Emily Hercules Hematocrit (Bld) [Volume fraction] 39.4 % Normal 36.0-48.0 [facility] Comment on above: Performed By: #### C MP, BNP, TSH, HSTROPN #### [facility] [address] [place] [address] Dr. Emily Hercules Hemoglobin (Bld) [Mass/Vol] 13.4 g/dL Normal 12.0-16.0 [facility] Comment on above: Performed By: #### C MP, BNP, TSH, HSTROPN #### [facility] [address] [place] [address] Dr. Emily Hercules IG # 0.02 10e3/ul Normal 0.00-0.03 [facility] Comment on above: Performed By: #### C MP, BNP, TSH, HSTROPN #### [facility] [address] [place] [address] Dr. Emily Hercules IG % 0.3 % Normal 0.0-0.5 [facility] Comment on above: Performed By: #### C MP, BNP, TSH, HSTROPN #### [facility] [address] [place] [address] Dr. Emily Hercules LYMPH # 1.8 103/ul Normal 1.2-3.8 [facility] Comment on above: Performed By: #### C MP, BNP, TSH, HSTROPN #### [facility] [address] [place] [address] Dr. Emily Hercules Lymphocytes/100 WBC (Bld) 25.9 % Normal 20.5-60.0 [facility] Comment on above: Performed By: #### C MP, BNP, TSH, HSTROPN #### [facility] [address] [place] [address] Dr. Emily Hercules MANUAL DIFF REQ NO Normal [facility] Comment on above: Performed By: #### C MP, BNP, TSH, HSTROPN #### [facility] [address] [place] [address] Dr. Emily Hercules MCH (RBC) [Entitic mass] 29.9 pg Normal 26.7-34.0 [facility] Comment on above: Performed By: #### C MP, BNP, TSH, HSTROPN #### [facility] [address] [place] [address] Dr. Emily Hercules MCHC (RBC) [Mass/Vol] 34.0 g/dL Normal 29.9-35.2 [facility] Comment on above: Performed By: #### C MP, BNP, TSH, HSTROPN #### [facility] [address] [place] [address] Dr. Emily Hercules MCV (RBC) [Entitic vol] 87.9 fL Normal 81.0-99.0 [facility] Comment on above: Performed By: #### C MP, BNP, TSH, HSTROPN #### [facility] [address] [place] [address] Dr. Emily Hercules MONO # 0.4 103/ul Normal 0.3-0.8 [facility] Comment on above: Performed By: #### C MP, BNP, TSH, HSTROPN #### [facility] [address] [place] [address] Dr. Emily Hercules Monocytes/100 WBC (Bld) 5.8 % Normal 1.7-12.0 [facility] Comment on above: Performed By: #### C MP, BNP, TSH, HSTROPN #### [facility] [address] [place] [address] Dr. Emily Hercules NEUT # 4.4 103/ul Normal 1.4-6.5 [facility] Comment on above: Performed By: #### C MP, BNP, TSH, HSTROPN #### [facility] [address] [address] [address] Emily Hercules Neutrophils/100 WBC (Bld) 63.3 % Normal 43.0-75.0 [facility] Comment on above: Performed By: #### C MP, BNP, TSH, HSTROPN #### [facility] [address] [address] [address] Emily Hercules Platelet mean volume (Bld) [Entitic vol] 11.7 fL Normal 9.5-13.5 [facility] Comment on above: Performed By: #### C MP, BNP, TSH, HSTROPN #### [facility] [address] [address] [address] Emily Hercules PLT 122 103/ul Critically low 150-450 [facility] Comment on above: Performed By: #### C MP, BNP, TSH, HSTROPN #### [facility] [address] [address] [address] Emily Hercules RBC 4.48 106/ul Normal 4.20-5.40 [facility] Comment on above: Performed By: #### C MP, BNP, TSH, HSTROPN #### [facility] [address] [address] [address] Emily Hercules WBC 6.9 103/ul Normal 4.0-11.0 [facility] Comment on above: Performed By: #### C MP, BNP, TSH, HSTROPN #### [facility] [address] [place] [address] Dr. Emily Hercules CTA CHEST WO W [...] NATY BALDERRAMA Date: 2021-08-24 17:14 Normal [facility] Covid-19 PCR (CVDTBH)on 07-30 SARS-CoV-2 (COVID-19) RNA SUKHWINDER+probe Ql (Unsp spec) Not detected Normal NOT DETECTED [facility] Comment on above: Result Comment: This test is not yet approved or cleared by the [place] FDA. When there are no FDA-approved or cleared tests available, and other criteria are met, FDA can make tests available under an emergency access mechanism called an Emergency Use Authorization (EUA). The EUA for this test is supported by the [place] of Health and Human Service's (HHS's) declaration [...] #### C MP, BNP, TSH, HSTROPN #### [facility] [address] [place] [address] Dr. Emily Hercules LACTATE/LACTIC ACIDon 2020 Lactate [Moles/Vol] 0.5 mmol/L Critically low 0.7-2.0 [facility] Comment on above: Performed By: #### C MP, BNP, TSH, HSTROPN #### [facility] [address] [place] [address] Dr. Emily Hercules PROF 14(COMP METB)on 021 Albumin [Mass/Vol] 3.7 g/dL Normal 3.5-5.0 [facility] Comment on above: Performed By: #### C MP, BNP, TSH, HSTROPN #### [facility] [address] [place] [address] Dr. Emily Hercules Albumin/Globulin [Mass ratio] 1.0 {ratio} Normal [facility] Comment on above: Performed By: #### C MP, BNP, TSH, HSTROPN #### [facility] [address] [place] [address] Dr. Emily Hercules ALP [Catalytic activity/Vol] 63 U/L Normal 38-126 [facility] Comment on above: Performed By: #### C MP, BNP, TSH, HSTROPN #### [facility] [address] [place] [address] Dr. Emily Hercules ALT [Catalytic activity/Vol] 66 U/L Critically high 9-52 [facility] Comment on above: Performed By: #### C MP, BNP, TSH, HSTROPN #### [facility] [address] [place] [address] Dr. Emily Hercules Anion gap [Moles/Vol] 12.3 mmol/L Normal [facility] Comment on above: Performed By: #### C MP, BNP, TSH, HSTROPN #### [facility] [address] [place] [address] Dr. Emily Hercules AST [Catalytic activity/Vol] 48 U/L Critically high 14-36 [facility] Comment on above: Performed By: #### C MP, BNP, TSH, HSTROPN #### [facility] [address] [place] [address] Dr. Emily Hercules Bilirubin [Mass/Vol] 0.6 mg/dL Normal 0.2-1.3 [facility] Comment on above: Performed By: #### C MP, BNP, TSH, HSTROPN #### [facility] [address] [place] [address] Dr. Emily Hercules Calcium [Mass/Vol] 9.2 mg/dL Normal 8.4-10.2 [facility] Comment on above: Performed By: #### C MP, BNP, TSH, HSTROPN #### [facility] [address] [place] [address] Dr. Emily Hercules Chloride [Moles/Vol] 103 mmol/L Normal 98-107 [facility] Comment on above: Performed By: #### C MP, BNP, TSH, HSTROPN #### [facility] [address] [place] [address] Dr. Emily Hercules CO2 [Moles/Vol] 25.2 mmol/L Normal 22.0-30.0 [facility] Comment on above: Performed By: #### C MP, BNP, TSH, HSTROPN #### [facility] [address] [place] [address] Dr. Emily Hercules Creatinine [Mass/Vol] 1.49 mg/dL Critically high 0.52-1.04 [facility] Comment on above: Performed By: #### C MP, BNP, TSH, HSTROPN #### [facility] [address] [address] [address] Emily Hercules EGFR-AF COMORAN 45 mL/min/1.73m2 Critically low >=60 [facility] Comment on above: Performed By: #### C MP, BNP, TSH, HSTROPN #### [facility] [address] [address] [address] Emily Hercules EGFR-NON AF COMORAN 37 mL/min/1.73m2 Critically low >=60 [facility] Comment on above: Performed By: #### C MP, BNP, TSH, HSTROPN #### [facility] [address] [address] [address] Emily Hercules Globulin (S) [Mass/Vol] 3.6 g/dL Normal [facility] Comment on above: Performed By: #### C MP, BNP, TSH, HSTROPN #### [facility] [address] [place] [address] Dr. Emily Hercules Glucose [Mass/Vol] 100 mg/dL Normal 74-106 [facility] Comment on above: Performed By: #### C MP, BNP, TSH, HSTROPN #### [facility] [address] [place] [address] Dr. Emily Hercules Potassium [Moles/Vol] 4.5 mmol/L Normal 3.4-5.0 [facility] Comment on above: Performed By: #### C MP, BNP, TSH, HSTROPN #### [facility] [address] [place] [address] Dr. Emily Hercules Protein [Mass/Vol] 7.3 g/dL Normal 6.1-8.2 [facility] Comment on above: Performed By: #### C MP, BNP, TSH, HSTROPN #### [facility] [address] [place] [address] Dr. Emily Hercules Sodium [Moles/Vol] 136 mmol/L Critically low 137-145 [facility] Comment on above: Performed By: #### C MP, BNP, TSH, HSTROPN #### [facility] [address] [place] [address] Dr. Emily Hercules Urea nitrogen [Mass/Vol] 22.0 mg/dL Critically high 7.0-17.0 [facility] Comment on above: Performed By: #### C MP, BNP, TSH, HSTROPN #### [facility] [address] [place] [address] Dr. Emily Hercules Urea nitrogen/Creatinine [Mass ratio] 14.8 mg/mg Normal [facility] Comment on above: Performed By: #### C MP, BNP, TSH, HSTROPN #### [facility] [address] [place] [address] Dr. Emily Hercules PROTIMEon 08-24-2021 INR Coag (PPP) [Relative time] 1.08 {INR} Normal [facility] Comment on above: Performed By: #### C MP, BNP, TSH, HSTROPN #### [facility] [address] [place] [address] Dr. Emily Hercules INR GUIDELINES SEE BELOW Normal [facility] Comment on above: Result Comment: GUILLERMO RED INR: 2.0 - 3.0 CONDITIONS NOT LISTED BELOW 2.5 - 3.5 FOR PROSTHETIC HEART VALVE REPLACEMENT 2.5 - 3.5 RECURRENT THROMBOSIS Performed By: #### C MP, BNP, TSH, HSTROPN #### [facility] [address] [place] [address] Dr. Emily Hercules PT Coag (PPP) [Time] 11.6 s Normal 9.0-11.6 [facility] Comment on above: Performed By: #### C MP, BNP, TSH, HSTROPN #### [facility] [address] [place] [address] Dr. Emily Hercules PTTon 08-24-2021 aPTT Coag (Bld) [Time] 29.6 s Normal 22.3-36.2 [facility] Comment on above: Performed By: #### C MP, BNP, TSH, HSTROPN #### [facility] [address] [place] [address] Dr. Emily Hercules TROPONIN, HIGH SENSITIVITYon 08-24-2021 HSTROP 4.9 pg/mL Normal 4.0-35.5 [facility] Comment on above: Result Comment: CUT- OFF POINTS HAVE BEEN ESTABLISHED BASED ON THE FOURTH UNIVERSAL DEFINITIONS OF MYOCARDIAL INFARCTION. THE UPPER REFERENCE LIMIT (URL) OF TROPONIN, DEFINED THE 99TH PERCENTILE OF cTnI DISTRIBUTION IN A REFERENCE POPULATION, HAS BEEN CONFIRMED THE DECISION THRESHOLD FOR NE DIAGNOSIS. Performed By: #### C MP, BNP, TSH, HSTROPN #### [facility] [address] [address] [address] Emily Hercules HSTROP 7.0 pg/mL Normal 4.0-35.5 [facility] Comment on above: Result Comment: CUT- OFF POINTS HAVE BEEN ESTABLISHED BASED ON THE FOURTH UNIVERSAL DEFINITIONS OF MYOCARDIAL INFARCTION. THE UPPER REFERENCE LIMIT (URL) OF TROPONIN, DEFINED THE 99TH PERCENTILE OF cTnI DISTRIBUTION IN A REFERENCE POPULATION, HAS BEEN CONFIRMED THE DECISION THRESHOLD FOR NE DIAGNOSIS. Performed By: #### C MP, BNP, TSH, HSTROPN #### [facility] [address] [address] [address] Emily Hercules TSHon 08-24-2021 TSH 1.614 uIU/mL Normal 0.470-4.680 [facility] Comment on above: Performed By: #### C MP, BNP, TSH, HSTROPN #### [facility] [address] [address] [address] Emily Hercules TSH RANGE SEE BELOW Normal [facility] Comment on above: Result Comment: <0.3 4 UIU/ml HYPERTHYROID 0.34-5.60 UIU/ml EUTHYROID >5.60 UIU/ml HYPOTHYROID Performed By: #### C MP, BNP, TSH, HSTROPN #### [facility] [address] [address] [address] Emily Hercules US KARINE DOP LEG [...] MARCIAL BOB Date: 2021-08-24 16:22 Normal [facility] Test (Serum)on Test, Serum Negative Normal [facility] Comment on above: Performed By: #### 3 [id number] ####[facility] [address] [place] [address] CBC With Differentialon 04-28 Basophils Auto #/vol (Bld) 0.06 10*3/uL Normal 0.01-0.07 [facility] Comment on above: Performed By: #### 2 [id number] ####[facility] [address] [place] [address] Basophils/100 WBC Auto (Bld) 0.7 % Normal 0.1-1.2 [facility] Comment on above: Performed By: #### 2 [id number] ####[facility] [address] [place] [address] Eosinophils 0.51 10*3/uL High 0.04-0.50 [facility] Comment on above: Performed By: #### 2 [id number] ####[facility] [address] [place] [address] Eosinophils/100 leukocytes 6.1 % Normal 0.0-8.1 [facility] Comment on above: Performed By: #### 2 [id number] ####[facility] [address] [place] [address] Erythrocyte distribution width Auto Ratio (RBC) 13.2 % Normal 12.0-15.4 [facility] Comment on above: Performed By: #### 2 [id number] ####[facility] [address] [place] [address] Erythrocytes (RBC) 4.67 10*6/uL Normal 3.85-5.10 [facility] Comment on above: Performed By: #### 2 [id number] ####[facility] [address] [place] [address] Erythrocytes (RBC) 0.0 /100{WBCs} Normal [facility] Comment on above: Performed By: #### 2 [id number] ####[facility] [address] [facility] [place] [address] Erythrocytes (RBC) 0.00 10*3/uL Normal [facility] Comment on above: Performed By: #### 2 [id number] ####[facility] [address] [place] [address] Hematocrit (HCT) 40.8 % Normal 36.5-46.6 [facility] Comment on above: Performed By: #### 2 [id number] ####[facility] [address] [place] [address] Hemoglobin mass conc (Bld) 13.6 g/dL Normal 11.8-15.3 [facility] Comment on above: Performed By: #### 2 [id number] ####[facility] [address] [place] [address] Imm Grans Absolute 0.02 10*3/uL Normal 0.00-0.21 [facility] Comment on above: Performed By: #### 2 [id number] ####[facility] [address] [place] [address] Immature granulocytes #/vol (Bld) 0.2 % Normal [facility] Comment on above: Performed By: #### 2 [id number] ####[facility] [address] [facility] [place] [address] Lymphocytes 2.15 10*3/uL Normal 0.40-2.84 [facility] Comment on above: Performed By: #### 2 [id number] ####[facility] [address] [facility] [place] [address] Lymphocytes/100 leukocytes 25.8 % Normal 15.7-50.5 [facility] Comment on above: Performed By: #### 2 [id number] ####[facility] [address] [place] [address] MCH 29.1 pg Normal 27.5-33.0 [facility] Comment on above: Performed By: #### 2 [id number] ####[facility] [address] [place] [address] MCHC mass conc (RBC) 33.3 g/dL Normal 30.1-35.0 [facility] Comment on above: Performed By: #### 2 [id number] ####[facility] [address] [place] [address] MCV 87.4 fL Normal 85.4-100.0 [facility] Comment on above: Performed By: #### 2 [id number] ####[facility] [address] [place] [address] Monocytes 0.57 10*3/uL Normal 0.25-0.83 [facility] re Comment on above: Performed By: #### 2 [id number] ####[facility] [address] [place] [address] Monocytes/100 leukocytes 6.9 % Normal 4.8-12.7 [facility] Comment on above: Performed By: #### 2 [id number] ####[facility] [address] [facility] [place] [address] Neutrophils 5.01 10*3/uL Normal 1.95-6.85 [facility] are Comment on above: Performed By: #### 2 [id number] ####[facility] [address] [facility] [place] [address] Neutrophils/100 leukocytes 60.3 % Normal 36.8-73.2 [facility] Comment on above: Performed By: #### 2 [id number] ####[facility] [address] [facility] [place] [address] Platelet mean volume (PMV) 12.0 fL Normal 9.9-12.1 [facility] Comment on above: Performed By: #### 2 [id number] ####[facility] [address] [place] [address] Platelets 207 10*3/uL Normal 155-404 [facility] Comment on above: Performed By: #### 2 [id number] ####[facility] [address] [place] [address] RDW SD 42.2 fL Normal 39.3-48.6 [facility] Comment on above: Performed By: #### 2 [id number] ####[facility] [address] [place] [address] WBC (Leukocytes) 8.3 10*3/uL Normal 4.4-9.9 [facility] Comment on above: Performed By: #### 2 [id number] ####[facility] [address] [place] [address] Partial Thromboplastin Timeo n 05-10-2017 aPTT 28.4 s Normal 22.1-35.3 [facility] Comment on above: Result Comment: Luis allen note new Heparin Therapeutic range effective 02/14/17.Heparin Therapeutic Range: 71 - 97 sec Performed By: #### 3 [id number] ####[facility] [address] [place] [address] Prothrombin Timeon 7 INR Coag RelTime (PPP) 1.00 {INR} Normal 0.85-1.16 [facility] Comment on above: Result Comment: Coum vanesa Therapy:1.5 - 2.0 Low Intensity Therapy2.0 - 3.0 Moderate Intensity Therapy2.5 - 3.5 High (1) Intensity Therapy3.0 - 4.0 High (2) Intensity Therapy Performed By: #### 3 [id number] ####[facility] [id number] [place] [address] Prothrombin time (PT) Coag time (PPP) 13.1 s Normal 11.3-14.5 [facility] are Comment on above: Performed By: #### 3 [id number] ####[facility] [address] [place] [address] Vital Signs Date Time Vital Sign Value Performing Clinician Faci lity 12-24-2024 14:38-0500 Body height 160 cm Merlin Ardon MD Work Phone: [facility] 12-24-2024 14:38-0500 Body mass index (BMI) [Ratio] 33.3 kg/m2 Merlin Ardon MD Work Phone: [facility] 12-24-2024 14:38-0500 Body temperature 98.2 [degF] Merlin Ardon MD Work Phone: [facility] 12-24-2024 14:38-0500 Body weight 85.28 kg Merlin Ardon MD Work Phone: [facility] 12-24-2024 14:38-0500 Diastolic blood pressure 79 mm[Hg] Merlin Ardon MD Work Phone: [facility] 12-24-2024 14:38-0500 Heart rate 89 /min Merlin Ardon MD Work Phone: [facility] 12-24-2024 14:38-0500 Respiratory rate 14 /min Merlin Ardon MD Work Phone: [facility] 12-24-2024 14:38-0500 SaO2% (BldA) [Mass fraction] 98 % Merlin Ardon MD Work Phone: [facility] 12-24-2024 14:38-0500 Systolic blood pressure 117 mm[Hg] Merlin Arodn MD Work Phone: [facility] 11-24-2024 13:51-0500 Body mass index (BMI) [Ratio] 34.72 kg/m2 Merlin Ardon MD Work Phone: [facility] 11-24-2024 13:51-0500 Body weight 88.91 kg Merlin Ardon MD Work Phone: [facility] Encounters Encounter Date Encounter Type Care Provider Facility Start: 12-24-2024 End: 12-24-2024 Patient encounter procedure Merlin Ardon MD [facility] Phone[facility] Comment on above: Diaphragmatic hernia without obstruction and without gangrene (Primary Dx) Start: 12-24-2024 End: 12-24-2024 ambulatory MERLIN ARDON Facility:[facility] Start: 12-24-2024 End: 12-24-2024 Subsequent hospital visit by physician [facility] Qb1 (I-Stat) Radiology Comment on above: Diaphragmatic hernia without obstruction and without gangrene [K44.9] Start: 11-24-2024 End: 11-24-2024 Telephone encounter Merlin Ardon MD Work Phone: [facility] Comment on above: Appointment Consult; Appointment Confirmation Request Outside [facility] Records; Received Outside Medical Records Start: 05-12-2022 End: 05-12-[address] CABRERA JONES Facility:[facility] Start: 09-20-2021 End: 09-20-[address] CABRERA JONES Facility:[facility] Start: 09-15-2021 End: 09-16-[address] CABRERA JONES Facility:[facility] Start: 09-02-2021 End: 09-03-[address] CABRERA JONES Facility:[facility] Start: 08-24-2021 End: 08-24-[address] MARCIAL BOB Facility:[facility] Start: 05-16-2017 End: 05-16-2017 Ambulatory Tito VALLE Facility:[facility] Start: 05-10-2017 Ambulatory Tito [...] Vaccine ( season) Covid-19 Vaccine ( season) [facility] Start: 06-29-2024 Covid-19 Vaccine ( season) Covid-19 Vaccine ( season) [facility] Start: 06-29-2024 Influenza vaccination Influenza Vacc ine (#1) [facility] Start: 2023 Pneumococcal Vaccine : 50+ (1 of 1 - PCV) Pneumococcal Vaccine: 50+ (1 of 1 - PCV) [facility] Start: 2023 Screening for malign ant neoplasm of lung Lung Cancer Screening [facility] Start: 2023 Shingrix Vaccine (1 of 2) Shingrix Vaccine (1 of 2) [facility] Start: 2018 Diabetes Screening Diabetes Screenin g [facility] Start: 2018 Lipid panel Lipid Screening [facility] Start: 2018 Screening for malign ant neoplasm of colon [facility] Start: 2013 Screening for malign ant neoplasm of breast Mammogram Screening [facility] Start: 1994 Screening for malign ant neoplasm of cervix Cervical Cancer Screening [facility] Start: 1992 Hepatitis B Vaccine (1 of 3 - 19+ 3-dose series) Hepatitis B Vaccine (1 of 3 - 19+ 3-dose series) [facility] Start: 1992 Urine microalbumin profile DTaP,Tdap,Td Vaccine (1 - Tdap) [facility] Start: 1991 Anxiety Screening Anxiety Screening [facility] Start: 1991 Depression Screening Depression Scre ening [facility] Start: 1991 Hepatitis C screening Hepatitis C Sc reening [facility] Start: 1991 HIV screening HIV Screening [facility] End: 12-24-2025 XR Esophagus Views W contrast PO XR ESOPHAGRAM Radiology Routine Diaphragmatic hernia without obstruction and without gangrene 1 Occurrences starting 11/24/2024 until 12/24/2025 [facility] Work Phone: Comment on above: 1 Occurrences starti ng 11/24/2024 until 12/24/2025 Immunizations Immunization Date Immunization Notes Care Provider Emmanuel mullen 06-28-2020 influenza virus vacc ine, unspecified formulation Gi (I-Stat) [facility] Payers Date Payer Category Payer Medicaid [id number] 2018 Medicare (Managed Care) [facility] [id number] 2018 Unknown [employer]AGE O [id number] 2018-Present [phone] [address] [place] [address] HMO [id number] 1973 Unknown [id number] 1973 Unknown [id number] 1973 Unknown [id number] 1973 Unknown [id number] 1973 Unknown [id number] 1959 Medicaid [id number] 1961 Unknown [id number] Medicare [id number] Social History Date Type Detail Facility Start: 11-24-2024 Tobacco smoking stat us NHIS Ex-smoker [facility] Start: 05-06-2001 End: 05-06-2019 History of tobacco use Current smoker [facility] Start: 05-06-2001 End: 05-06-2019 History of tobacco use Cigarette Smoker [facility] Start: 11-24-2024 End: 12-24-2024 Cigarettes smoked current (pack per day) - Reported 1.5 [facility] Start: 11-24-2024 Tobacco use and exposure Smoke less tobacco non-user [facility] Start: 11-24-2024 End: 12-24-2024 Alcoholic beverage intake [facility] Start: 11-24-2024 End: 12-24-2024 Tobacco use panel [facility] National Score (1-10 0), lower number is lower risk Not on file [facility] Start: 11-24-2024 Tobacco Comment using E cig [facility] Start: 1975 Sex assigned at Not on file [facility] Clinical Notes 03-01-2022 to 01-03-2025 Merlin Ardon MD - 01/03/2025 9:12 AM Travis Oreilly MD - 12/24/2024 2:45 PM Sonia Tracy RT(R) - 12/24/2024 1:20 PM ESTTelephone Encounter - Trice Louis - 11/24/2024 4:37 PM EST Note Date & Type Note Facility 01-03-2025 Note HNO ID: [id number] Author: MERLIN ARDON MD Service: ? Author Type: Physician Type: Progress Notes Filed: 01/03/2025 09:17 Note Text: I have read and reviewed the documentation and agree. I wish to add the followingI wish to add the following findings which will be communicated back to the requesting physician. Merlin Ardon MD [facility] STAFF PHYSICIAN NOTE OF PERSONAL INVOLVEMENT IN [...] 24, 2024 TIME OF SERVICE: 330 PM [facility] 01-03-2025 History of Presen t illness Narrative I have read and reviewed the documentation and agree. I wish to add the followingI wish to add the following findings which will be communicated back to the requesting physician. Merlin Ardon MD [facility] STAFF PHYSICIAN NOTE OF PERSONAL INVOLVEMENT IN [...] THORACIC SURGERY OUTPATIENT CONSULT NOTE Kiya Bhat [id number] Requesting Provider: [facility] Thoracic Physician: Merlin Ardon MD Chief [...] personally performed by: Duglas Manjarrez Patient-Entered Questionnaire [facility] Esophageal Questionnaire 12/23/2024 Domain Symptom Raw Score [...] 6-30) Incomplete Incomplete documented in this encounter [facility] 12-24-2024 Note HNO ID: [id number] Author: TRAVIS MANJARREZ MD Service: ? Author Type: Fellow Type: Progress Notes Filed: 01/03/2025 09:17 Note Text: [facility] THORACIC SURGERY OUTPATIENT CONSULT NOTE Kiya Bhat [id number] Requesting Provider: Self Thoracic Physician: Merlin Ardon [...] personally performed by: Duglas Manjarrez Patient-Entered Questionnaire [facility] Esophageal Questionnaire 12/23/2024 Domain Symptom Raw Score [...] (Range 6-36) Incomplete (Range 6-30) Incomplete Incomplete [facility] 12-24-2024 History of Presen t illness [...] PATIENT PRESENTS WITH AN IMPLANTABLE OR ATTACHED GAMING FLOOR SUPERVISOR: No RADIOLOGY DEPARTMENT: General X-ray: Exam(s) Completed: GI/ Procedure(s): Esophogram with barium contrast PERIPHERAL IV DATA: Not applicable SIGNED BY: RT Wil(Sybil) December 24, 2024 1:50 PM documented in this encounter [facility] 12-24-2024 Note HNO ID: [id number] Author: SONIA BENNETT RT(Sybil) Service: Radiology Author [...] PATIENT PRESENTS WITH AN IMPLANTABLE OR ATTACHED GAMING FLOOR SUPERVISOR: No RADIOLOGY DEPARTMENT: General X-ray: Exam(s) Completed: GI/ Procedure(s): Esophogram with barium contrast PERIPHERAL IV DATA: Not applicable SIGNED BY: RT Wil(R) December 24, 2024 1:50 PM [facility] 11-24-2024 Telephone encounter Note Patient confirmed appointment scheduled with Dr. Ardon with barium on 12/24/24 [facility] Work Phone: 11-24-2024 Miscellaneous Notes Patient confirmed [...] PATIENT Received Epic Staff Message from Earl rBar is former pt of Merlin Ardon M.D., [...] office for scheduling. Please call pt at [phone]. Patient was informed consultation could be at [facility] or [facility]: No Patient Registration: Registration complete/updated: yes Insurance card(s) scanned in [facility] with in the past year: No Pt's [employer] is active. Ok to communicate to pt via [employer] yes Medical Records: Records in [facility] (internal CC records): Yes (old) Imaging in [facility] (internal CC records): Yes (old) [...] triage Renae Elliott documented in this encounter [facility] 11-24-2024 Telephone encounter Note Received outside office note (scanned) to [facility]. Renae Chaudhry Surgical Technician [facility] Work Phone (unformatted): [phone] 11-24-2024 Miscellaneous Notes Received outside office note (scanned) to [facility]. Renae Chaudhry Surgical Technician Attempt #1 Requested Medical Records from the office of Dr. Cabrera Jones Spoke to: Jacki Phone #: [phone] Fax #: [phone] Jacki agreed to fax the last office note Renae Elliott November 24, 2024 2:12 PM documented in this encounter [facility] 11-24-2024 Telephone encounter Note Attempt #1 Requested Medical Records from the office of Dr. Cabrera Jones Spoke to: Jacki Phone #: [phone] Fax #: [phone] Jacki agreed to fax the last office note Renae Richa Elliott November 24, 2024 2:12 PM [facility] 11-24-2024 Telephone encounter Note Images from the [...] lost weight with diet exercise) esophagram Jenni gM RN [facility] 11-24-2024 Telephone encounter Note LOCAL PATIENT Received [facility] Staff Message from Earl Brar [...] office for scheduling. Please call pt at [phone]. Patient was informed consultation could be at [facility] or [facility]: No Patient Registration: Registration complete/updated: yes Insurance card(s) scanned in [facility] with in the past year: No Pt's [employer] is active. Ok to communicate to pt via [employer] yes Medical Records: Records in [facility] (internal CC records): Yes (old) Imaging in [facility] (internal CC records): Yes (old) [...] Yes, Thoracic NPM for triage Renae Elliott [facility] Work Phone (unformatted): [phone] 11-24-2024 Telephone encounter Note .RECEIVED CALL FROM: Patient PATIENT INFORMATION: Name: Kyia Bhat : 1975 (home) [phone] (cell) Email: [email or web address] Referring Provider: No referring provider defined for this encounter. Phone: N/A Fax: Requested Surgeon: Merlin Ardon M.D., Ph.D. Reason for appointment/diagnosis: Diaphragmatic hernia without obstruction and without gangrene Earl Brar November 24, 2024 11:32 AM [facility] 11-24-2024 Miscellaneous Notes .RECEIVED CALL FROM: Patient PATIENT INFORMATION: Name: Kiya Bhat : 1975 (home) [phone] (cell) Email: [email or web address] Referring Provider: No referring provider defined for this encounter. Phone: N/A Fax: Requested Surgeon: Merlin Ardon M.D., Ph.D. Reason for appointment/diagnosis: Diaphragmatic hernia without obstruction and without gangrene Earl Brar November 24, 2024 11:32 AM documented in this encounter [facility] 03-01-2022 Note Chief Complaint consultation for sebaceous [...] 2: Mother and Brother. Heart disease: Mother. [facility] Comment on above: Result Comment: Elec tronically Signed By: FRANK GALLO, Hemal Moore\Date and Time Signed: 03/01/22 16:21 EDT Evaluation note Diagnosis Diaphragmatic hernia without obstruction and without gangrene- [facility]atic hernia without obstruction and without gangrene [facility] Diagnosis Diaphragmatic hernia without obstruction and without gangrene- Primary documented [facility] this [facility] (narrative)* Diagnostic Procedure Only (Routine) - Authorized Specialty Diagnoses / Procedures Referred By Chandler berkowitz Referred To Contact XR IMAGING Diagnoses Diaphragmatic hernia without obstruction and without gangrene Procedures XR ESOPHAGRAM RADIOLOGIC EXAM ESOPHAGUS SINGLE CONTRAST STUDY Merlin Ardon MD [address] [place] [address] [place] [address] Referral ID Status Reason Start Date Expiration Date Visits Requested Visits Authorized [id number] Authorized Auto-Generat ed Referral 11/24/2024 12/24/2025 1 1 [facility] Summary Purpose Family History No Family History Records FoundNo Family History Records FoundNo Family History Records FoundNo Family History Records Found Advance Directives No Advanced Directives Records FoundNo Advanced Directives Records FoundNo Advanced Directives Records FoundNo Advanced Directives Records Found Additional Source Comments INFORMATION SOURCE (unrecogn ized section and content) DATE CREATED AUTHOR 04/24/2018 [facility] DATE CREATED AUTHOR AUTHOR'S ORGANIZ ATION 03/03/2022 [facility] DATE CREATED AUTHOR AUTHOR'S ORGANIZ ATION 05/18/2022 [facility] DATE CREATED AUTHOR AUTHOR'S ORGANIZ ATION 01/05/2025 [facility] Source Comments (unrecognize d section and content) In the event this informatio n is protected by the Federal Confidentiality of Alcohol and Drug Abuse Patient Records regulations: The Federal rules restrict any use of the information to criminally investigate or prosecute any alcohol or drug abuse patient.[facility] the event this information is protected by the Federal Confidentiality of Alcohol and Drug Abuse Patient Records regulations: The Federal rules restrict any use of the information to criminally investigate or prosecute any alcohol or drug abuse patient.[facility] the event this information is protected by the Federal Confidentiality of Alcohol and Drug Abuse Patient Records regulations: The Federal rules restrict any use of the information to criminally investigate or prosecute any alcohol or drug abuse patient.[facility] the event this information is protected by the Federal Confidentiality of Alcohol and Drug Abuse Patient Records regulations: The Federal rules restrict any use of the information to criminally investigate or prosecute any alcohol or drug abuse patient.[facility] the event this information is protected by the Federal Confidentiality of Alcohol and Drug Abuse Patient Records regulations: The Federal rules restrict any use of the information to criminally investigate or prosecute any alcohol or drug abuse patient.[facility] Reason for Visit (unrecogniz ed section and [...] ESOPHAGUS SINGLE CONTRAST STUDY Merlin Ardon MD [address] [place] [address] Phone: tel: [place] [address] Referral ID Status Reason Start Date Expiration Date V isits Requested Visits Authorized [id number] Closed Auto-Generate d Referral 11/24/2024 12/24/2025 1 1 Reason Comments Consult Care Teams (unrecognized sec tion and content) Change Advisor Relationship Specialty Start Date End Date Cabrera Jones MD [address] [place] [address] PCP - General Family Medicine 11/24/24 Junior Araya Jr., MD [facility] [address] [place] [address] Referring 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/19 Change Advisor Relationship Specialty Start Date End Date Cabrera Jones MD [address] [place] [address] PCP - General Family Medicine 11/24/24 Junior Araya Jr., MD [facility] [address] [place] [address] Referring 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/19 Change Advisor Relationship Specialty Start Date End Date Cabrera Jones MD [address] [place] [address] PCP - General Family Medicine 11/24/24 Junior Araya Jr., MD [facility] [address] [place] [address] Referring 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/19 Change Advisor Relationship Specialty Start Date End Date Cabrera Jones MD [address] [place] [address] PCP - [facility] 11/24/24 Junior Araya Jr., MD [address] [place], [place] [address] [facility] [place] [address] Referring 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/19 Change Advisor Relationship Specialty [place] [address] [place] [address] PCP - [facility] 11/24/24 Junior Araya Jr., MD [address] [place] [address] [place] [address] Referring 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/19 FOR RECORDS PERTAINING [...] BE BASED ON THE PRIMARY CLINICAL RECORDS. [facility] [employer] [facility]. provides no warranty or guarantee of the accuracy or completeness of information in this document.
--- NOTE | 2025-04-11 08:33 | ED_ITS ---
HPI HPI - General Adult General Chief complaint: Urogenital-Female Stated complaint: LOWER BACK PAIN, NAUSEA, Time Seen by Provider: 04/11/25 08:24 Source: patient Mode of arrival: walk-in History of Present Illness HPI narrative: The patient is a 49-year-old female with history of kidney stone, patient coming to the ER with a right lower quadrant pain that she said was different than her usual kidney stone pain and it was severe the pain in the right quadrant sometimes radiate to the back, the patient denies any burning with urination or frequency she does have some nausea and vomiting The patient mentioned that the pain started last night Last time she had anything by mouth was at midnight which is 9 hours ago Related Data Home Medications ?Medication ?Instructions ?Recorded ?Confirmed albuterol sulfate 90 mcg/actuation 2 puff inhalation Q 4H PRN 08/16/23 04/11/25 aerosol inhaler shortness of breath or wheez ing ferrous sulfate 325 mg (65 mg 325 mg PO DAILY 08/16/23 04/11/25 iron) tablet (Feosol) hydroxyzine HCl 25 mg tablet 25 mg PO DAILY PRN anxity 08/16/23 04/11/25 pantoprazole 40 mg tablet,delayed 40 mg PO QDAY 04/11/25 release Allergies Allergy/AdvReac Type Severity Reaction Status Date / Time No Known Drug Allergies Allergy Verified 04/11/25 08:22 Opioid HPI Opioid Management Most Recent Opioid Data: Last Pain Scale 0 08/17/23, 10:53 Review of Systems ROS Status of ROS 10 or more systems reviewed and unremark able except as noted in history and below PFSH PFSH Medical History (Updated 04/11/25 @ 09:55 by Elva Earl MD) Kidney stones ?N20.0 - Calculus of kidney (ICD-10) Right knee meniscal tear ?S83.206A - Unspecified tear of unspecified meniscus, current injury, right knee, initial encounter (ICD-10) Hiatal hernia ?K44.9 - Diaphragmatic hernia without obstruction or gangrene (ICD-10) Fibromyalgia ?M79.7 - Fibromyalgia (ICD-10) Asthma with acute exacerbation ?J45.901 - Unspecified asthma with (acute) exacerbation (ICD-10) Surgical History (Updated 08/16/23 @ 15:15 by Ruchi Yoo) Tubal ligation status ?Z98.51 - Tubal ligation status (ICD-10) History of cholecystectomy ?Z90.49 - Acquired absence of other specified parts of digestive tract (ICD- 10) Social History Smoking status: Former smoker Little interest or pleasure in doing things: not at all Feeling down, depressed, or hopeless: not at all Exam Narrative Exam Narrative: Nurses notes and vital signs reviewed and patient is not hypoxic. General: Some distress due to pain Skin: Warm, dry, no pallor noted. No rash. Head: Normocephalic, atraumatic. Neck: Supple, non-tender. Cardiovascular: Regular Rate and Rhythm without murmur, gallop or rub. Respiratory: No accessory muscle use or respiratory distress. Lungs are clear to auscultation, no wheezing, rales or rhonchi Chest Wall: no tenderness Back: No midline thoracic or lumbar vertebral tenderness. Right CVA tenderness that is subjective Musculoskeletal: normal ROM, no calf or popliteal tenderness, no lower extremity edema/swelling GI: Abdomen is soft, non-distended. Normal bowel sounds. Right lower quadrant tenderness on deep palpation. Neurological: A&O x4. No cranial nerve dysfunction observed. Constitutional Vital Signs, click to edit/add: Last Vital Signs Temp 97.6 F 04/11/25 08:22 Pulse 78 04/11/25 08:22 Resp 20 04/11/25 08:22 BP 126/82 04/11/25 08:22 Pulse Ox 99 04/11/25 08:22 O2 Del Method Room Air 04/11/25 08:22 Course Vital Signs Vital signs: Vital Signs Temperature 97.6 F 04/11/25 08:22 Pulse Rate 78 04/11/25 08:22 Respiratory Rate 20 04/11/25 08:22 Blood Pressure 126/82 04/11/25 08:22 Pulse Oximetry 99 04/11/25 08:22 Oxygen Delivery Method Room Air 04/11/25 08:22 Temperature 97.6 F 04/11/25 08:22 Pulse Rate 78 04/11/25 08:22 Respiratory Rate 20 04/11/25 08:22 Blood Pressure 126/82 04/11/25 08:22 Pulse Oximetry 99 04/11/25 08:22 Oxygen Delivery Method Room Air 04/11/25 08:22 Medical Decision Making MDM Narrative Medical decision making narrative: The patient CBC shows mild leukocytosis The patient chemistry showed no acute significant pathology The patient is in menopause The patient last time she had a history of tubal ligation and previous urology surgery The patient CAT scan shows a dilated appendix with appendicolith and slight haziness of the adjacent fat which could be secondary to acute appendicitis The patient case was discussed with and as per his recommendation he wants the patient to be going to the [facility] by private car soon as possible so we do not delay the surgery the patient mother can drive her right [facility] to get her scheduled for the surgery today--- no need for antibiotic right now in this ER as the patient will be going right away for surgery and Dr. Shultz can give her the antibiotic and [facility] The patient will be driven by her mother right away to the area she will be kept n.p.o. and she was provided with the all the blood workup and the CD of the imaging Lab Data Labs: Lab Results 04/11/25 Range/Units 08:35 WBC 13.3 H (4.0-11.0) 10^3/uL RBC 4.81 (4.20-5.40) 10^6/uL Hgb 14.2 (12.0-16.0) g/dL Hct 42.2 (36.0-48.0) % MCV 87.7 (81.0-99.0) fL MCH 29.5 (26.7-34.0) pg MCHC 33.6 (29.9-35.2) g/dL RDW 12.5 (11.0-15.0) % Plt Count 178 (150-450) 10^3/uL MPV 11.7 (9.5-13.5) fL Neut % (Auto) 85.8 H (43.0-75.0) % Lymph % (Auto) 8.3 L (20.5-60.0) % [place] % (Auto) 4.5 (1.7-12.0) % Eos % (Auto) 0.5 L (0.9-7.0) % Baso % (Auto) 0.5 (0.2-2.0) % Neut # (Auto) 11.4 H (1.4-6.5) 10^3/uL Lymph # (Auto) 1.1 L (1.2-3.8) 10^3/uL [place] # (Auto) 0.6 (0.3-0.8) 10^3/uL Eos # (Auto) 0.1 (0.0-0.7) 10^3/uL Baso # (Auto) 0.1 (0.0-0.1) 10^3/uL Abs Immat Gran (auto) 0.05 H (0.00-0.03) 10^3/uL Imm/Tot Granulo (auto) 0.4 (0.0-0.5) % Sodium 144 (136-145) mmol/L Potassium 3.7 (3.5-5.1) mmol/L Chloride 105 (98-107) mmol/L Carbon Dioxide 25.8 (21.0-32.0) mmol/L Anion Gap 16.9 BUN 27.0 H (7.0-18.0) mg/dL Creatinine 1.09 H (0.55-1.02) mg/dL Est GFR ( Amer) >60 (>=60 mL/min/1.73m^2) Est GFR (Non-Af Amer) 53 L (>=60 mL/min/1.73m^2) BUN/Creatinine Ratio 24.8 Glucose 144 H (74-106) mg/dL Lactate 1.2 (0.4-2.0) mmol/L Calcium 9.4 (8.5-10.1) mg/dL Total Bilirubin 0.4 (0.2-1.0) mg/dL AST 14 L (15-37) U/L ALT 24 (14-59) U/L Alkaline Phosphatase 71 (46-116) U/L Total Protein 7.2 (6.4-8.2) g/dL Albumin 3.9 (3.4-5.0) g/dL Globulin 3.3 g/dL Albumin/Globulin Ratio 1.2 Discharge Plan Discharge Chief Complaint: Urogenital-Female Clinical Impression: Acute appendicitis Patient Disposition: [facility] Time of Disposition Decision: 09:55 Discharge location: [facility] Dr Shultz Mode of Transportation: Private Vehicle
[2025-04-11 08:45] LABS: Basophils Absolute Auto 0.1 10^3/uL (0.0-0.1); Basophils Percent Auto 0.5 % (0.2-2.0); Eosinophils Absolute Auto 0.1 10^3/uL (0.0-0.7); Eosinophils Percent Auto 0.5 % (0.9-7.0); Hematocrit 42.2 % (36.0-48.0); Hemoglobin 14.2 g/dL (12.0-16.0); Immature Granulocytes Abs Auto 0.05 10^3/uL (0.00-0.03); Immature Granulocytes Pct Auto 0.4 % (0.0-0.5); Lymphocytes Absolute Auto 1.1 10^3/uL (1.2-3.8); Lymphocytes Percent Auto 8.3 % (20.5-60.0); Mean Corpuscular HGB Conc 33.6 g/dL (29.9-35.2); Mean Corpuscular Hemoglobin 29.5 pg (26.7-34.0); Mean Corpuscular Volume 87.7 fL (81.0-99.0); Mean Platelet Volume 11.7 fL (9.5-13.5); Monocytes Absolute Auto 0.6 10^3/uL (0.3-0.8); Monocytes Percent Auto 4.5 % (1.7-12.0); Neutrophils Absolute Auto 11.4 10^3/uL (1.4-6.5); Neutrophils Percent Auto 85.8 % (43.0-75.0); Platelet Count 178 10^3/uL (150-450); Red Blood Count 4.81 10^6/uL (4.20-5.40); Red Cell Distribution Width 12.5 % (11.0-15.0); White Blood Count 13.3 10^3/uL (4.0-11.0)
[2025-04-11] MEDS: ONDANSETRON PF 4 MG/2 ML VIAL IV (08:45)
[2025-04-11] MEDS: KETOROLAC TROMETHAMINE 30 MG/ML VIAL 15 MG IVP (08:46)
[2025-04-11 09:18] LABS: Alanine Aminotransferase 24 U/L (14-59); Albumin Globulin Ratio 1.2; Albumin Level 3.9 g/dL (3.4-5.0); Alkaline Phosphatase 71 U/L (46-116); Anion Gap 16.9; Aspartate Amino Transferase 14 U/L (15-37); BUN Creatinine Ratio 24.8; Bilirubin Total 0.4 mg/dL (0.2-1.0); Calcium 9.4 mg/dL (8.5-10.1); Carbon Dioxide 25.8 mmol/L (21.0-32.0); Chloride 105 mmol/L (98-107); Estimated GFR (African America >60 (>=60 mL/min/1.73m^2); Estimated GFR (Non-African Ame 53 (>=60 mL/min/1.73m^2); Globulin 3.3 g/dL; Glucose 144 mg/dL (74-106); Potassium 3.7 mmol/L (3.5-5.1); Sodium 144 mmol/L (136-145); Total Protein 7.2 g/dL (6.4-8.2)
[2025-04-11 09:21] LABS: Lactate/Lactic Acid 1.2 mmol/L (0.4-2.0)
[2025-04-11 10:05] LABS: HCG Qualitative NEGATIVE (NEGATIVE); Internal Control Within Normal Limits
== END 2025-04-11 10:15 | disposition short-term general hospital (02) ==
PROVIDERS: Emergency Provider Emergency Medicine; PCP Family Medicine
DX: K35.80 Unspecified acute appendicitis (principal); Z87.442 Personal history of urinary calculi; Z90.49 Acquired absence of other specified parts of digestive tract; Z87.891 Personal history of nicotine dependence; Z98.51 Tubal ligation status
CPT/HCPCS: 36415; 74176; 80053; 83605; 84703; 85025; 96374; 96375; 99285; J1885; J2405

== ENCOUNTER 2025-06-12 09:20 | Outpatient (OUT) | payer MEDICARE, MEDICAID, SELFPAY ==
--- OUTSIDE RECORDS SUMMARY | 2025-06-12 09:28 | XMS_ITS | CCD ---
Author Organization [facility] CliniSyme Care Team Providers Care Manager Floor Name Role Phone VALLE, M L Unavailable Unavailable VALLE, M L Unavailable Unavailable HOY, CABRERA M Unavailable Unavailable VALLE, M L Unavailable Unavailable VALLE, M L Unavailable Unavailable HOY, CABRERA M Unavailable Unavailable VALLE, M L Unavailable Unavailable CABRERA JONES Unavailable Unavailable FAZAL, DR REES Primary Care Unavailable HOY, DR REES Admitting Unavailable HOY, DR REES Attending Unavailable HOY, DR REES Consulting Unavailable ZISAMANHTA, DR MARCIAL Devine Consulting Unavailable KRYSTAL, DR [...] Attending Unavailable HOY, DR REES Consulting Unavailable FAZAL, DR REES Primary Care Unavailable OXFORD, DR LOREE Zimmerman Consulting Unavailable NATHANY, DR REES Primary Care Unavailable HOY, DR REES Admitting Unavailable HOY, DR REES Attending Unavailable HOY, DR REES Consulting Unavailable Marshal Faria MD, Junior Francis Unavailable Cabrera Jones MD Primary Care Provider EDISON ARDON Referring Unavailable CABRERA JONES Primary Care Unavailable EDISON ARDON Attending Unavailable SELF Referring Unavailable CBARERA JONES Primary Care Unavailable Unavailable Primary Care Provider Unavailabl e Cabrera Jones Primary Care Unavailable Clyde Choi Attending Unavailable Clyde Choi Admitting Unavailable Cabrera Jones MD Primary Care Provider [phone] CLYDE CHOI Attending Unavailable CLYDE CHOI Attending Unavailable Medications Current Medications Medication Drug Class(es) Dates Sig (Normalized) Sig (Original) [id number] 200 actuat albuterol 0.09 mg/actuat metered dose inhaler (4 sources) beta2-Adrenergic Agonist take 2 puff(s) by inhalation every four hours for wheezing albuterol HFA 90 mcg/act inhaler Inhale 2 puffs every 4 (four) hours if needed for wheezing Active calcium carbonate 1250 mg / cholecalciferol 200 unt oral tablet (5 sources) Vitamin D Start: 06-24-2019 take 1 tablet by mouth once daily xicjqrt-deyahtkpr-ul tamin D3 (CALCIUM 500+D) 500 mg(1,250mg) -200 [...] Active ferrous sulfate 325 mg oral tablet (9 sources) Start: 06-24-2019 take 1 tablet by mouth twice daily ferrous sulfate 325 mg (65 mg iron) tablet Take 1 tablet by mouth twice daily. 06/24/2019 Active take 1 tablet by mouth at mealti mo ferrous sulfate 325 (65 Fe) MG tablet Take 325 mg by mouth in the morning. Take with meals. Active 30 actuat fluticasone furoate 0.1 mg/actuat / vilanterol 0.025 mg/actuat dry powder inhaler (4 sources) Corticosteroid, beta2-Adrenergic Agonist Start: 05-20-2024 take 1 puff(s) by inhalation once daily Breo Ellipta 100-25 MCG/ACT aerosol powder INHALE 1 PUFF ONCE DAILY FOR 30 DAYS 05/20/2024 Active hydrOXYzine hydrochloride 25 mg oral tablet (4 sources) Antihistamine hydrOXYzine HCl (Atarax) 25 MG tablet Take by mouth Active ibuprofen 200 mg oral capsule (5 sources) Nonsteroidal Anti-inflammatory Drug Start: 06-24-2019 Ibuprofen 200 mg cap Take 1-2 capsules by mouth as needed (for pain). 06/24/2019 Active meloxicam 15 mg oral tablet (4 sources) Nonsteroidal Anti-inflammatory Drug meloxicam (Mobic) 15 MG tablet Take by mouth Active multivitamin (MULTIPLE VITAMINS) tablet (5 sources) [...] pantoprazole 40 mg delayed release oral tablet (5 sources) Proton Pump Inhibitor Start: 11-05-2024 pantoprazole (ProtoNix) 40 MG EC tablet Take 1 tablet by mouth 11/05/2024 Active Start: 11-05-2024 take 1 tablet by mouth once pa ntoprazole DR (PROTONIX) 40 mg tablet Take 1 tablet by mouth every afternoon. 11/05/2024 Active terbinafine 250 mg oral tablet (4 sources) Allylamine Antifungal take 1 tablet by mouth once daily terbinafine (LamISIL) 250 MG tablet Take 250 mg by mouth Daily Active traMADol hydrochloride 50 mg oral tablet (4 sources) Opioid Agonist Start: take 1 tablet by mouth every six hours as needed traMADol (Ultram) 50 MG tablet Take 50 mg by mouth every 6 (six) hours if needed 04/13/2025 Active Problems Active Problems Problem Classification Problem Date Documented Date Episodic/Chronic Abdominal hernia (5 sources) Diaphragmatic hernia; Translations: [Diaphragmatic hernia without obstruction or gangrene] Onset: 12-24-2024 11-24-2024 Episodic Abdominal pain (1 source) Right lower quadrant pain; Translations: [Right lower quadrant pain] Onset: 04-11-2025 Episodic Anxiety disorders (2 sources) Obsessive-compulsive disorder, unspecified; Translations: [Post-traumatic stress disorder, unspecified] Onset: 08-26-2021 Chronic Appendicitis and other appendiceal conditions (10 sources) Unspecified acute appendicitis; Translations: [Acute appendicitis] Onset: 04-11-2025 04-17-2025 Episodic Asthma (1 source) Asthma Onset: 05-16-2017 Diseases of white blood cells (1 source) Elevated white blood cell count, unspecified; Translations: [Elevated white blood cell count, unspecified] Onset: 04-11-2025 Chronic Disorders of lipid metabolism (4 sources) Hyperlipidemia, [...] 08-26-2021 Episodic Other aftercare (1 source) Other usp (current) drug therapy; Translations: [OTH DETENTION CURRENT DRUG THERAPY] Onset: 08-26-2021 Episodic Other [...] Test Name Value Interpretation Reference Range Facility GLUCOSE POCT GLUCOMETERSon 0 04-14-2025 Glucose [Mass/Vol] 109 mg/dL [facility] Comment on above: Random Glucose Refer ence Range is dependent on time and content of last meal. Glucose of more than 200 mg/dL in a nonstressed, ambulatory subject supports the diagnosis of Diabetes Mellitus. [facility] CBC W Auto Differential pane l (Bld)on 04-12-2025 Basophils (Bld) [#/Vol] 0 10*3/uL 0.0 - 0.2 10*3/uL [facility] Basophils/100 WBC Manual cnt (Syn fld) 0.3 % . [facility] Eosinophils (Bld) [#/Vol] 0.1 10*3/uL 0.0 - 0.45 10*3/uL [facility] Eosinophils/100 WBC Manual cnt (Syn fld) 0.6 % . [facility] Erythrocyte distribution width (RBC) [Ratio] 12.8 % 11.9 - 15.3 % [facility] Hematocrit (Bld) [Volume fraction] 37.1 % 34.0 - 46.4 % [facility] Hemoglobin (Bld) [Mass/Vol] 12.6 g/dL 11.8 - 15.4 g/dL [facility] Interpretation and review of laboratory results Abnormal [facility] Lymphocytes (Bld) [#/Vol] 1.7 10*3/uL 1.00 - 4.8 10*3/uL [facility] Lymphocytes/100 WBC Manual cnt (Syn fld) 15.3 % . [facility] MCH (RBC) [Entitic mass] 30.3 pg 24.7 - 34.3 pg [facility] MCHC (RBC) [Mass/Vol] 34 g/dL 32.0 - 35.0 g/dL [facility] MCV (RBC) [Entitic vol] 89 fL 80 - 100 fL [facility] Monocytes (Bld) [#/Vol] 0.6 10*3/uL 0.0 - 0.8 10*3/uL [facility] Monocytes+Macrophage s/100 WBC Manual cnt (Syn fld) 5.1 % . [facility] Neutrophils (Bld) [#/Vol] 8.6 10*3/uL High 1.8 - 7.7 10*3/uL [facility] Neutrophils/100 WBC Manual cnt (Syn fld) 78.7 % . [facility] NRBC 0.1 /100{WBC} 0 - 0.5 /100{WBC} [facility] Platelet mean volume (Bld) [Entitic vol] 9.9 fL 6.3 - 10.7 fL [facility] Platelets (Bld) [#/Vol] 148 10*3/uL Low 150 - 450 10*3/uL [facility] RBC LM.HPF (Urine sed) [#/Area] 4.17 10*6/uL 3.60 - 5.00 10*6/uL [facility] WBC (Bld) [#/Vol] 10.9 10*3/uL 3.8 - 11.6 10*3/uL [facility] WBC LM.HPF (Urine sed) [#/Area] 10.9 10*3/uL 3.8 - 11.6 10*3/uL [facility] Complete Blood Count Auto Di ffon 04-12-2025 Basophils (Bld) [#/Vol] 0.0 10*3/uL Normal 0.0-0.2 [facility] Comment on above: Result Comment: PERF ORMED BY: [place] [address] PATHOLOGIST REPAIR ARMATURE WINDER ALISA GOMEZ M.D. Performed By: #### C BC #### [address] Basophils/100 WBC (Bld) 0.3 % Normal . [facility] Comment on above: Performed By: #### C BC #### [address] Eosinophils (Bld) [#/Vol] 0.1 10*3/uL Normal 0.0-0.45 [facility] Comment on above: Performed By: #### C BC #### [address] Eosinophils/100 WBC (Bld) 0.6 % Normal . [facility] Comment on above: Performed By: #### C BC #### [address] Erythrocyte distribution width (RBC) [Ratio] 12.8 % Normal 11.9-15.3 [facility] Comment on above: Performed By: #### C BC #### [address] Hematocrit (Bld) [Volume fraction] 37.1 % Normal 34.0-46.4 [facility] Comment on above: Performed By: #### C BC #### [address] Hemoglobin (Bld) [Mass/Vol] 12.6 g/dL Normal 11.8-15.4 [facility] Comment on above: Performed By: #### C BC #### [address] Lymphocytes (Bld) [#/Vol] 1.7 10*3/uL Normal 1.00-4.8 [facility] Comment on above: Performed By: #### C BC #### [address] Lymphocytes/100 WBC (Bld) 15.3 % Normal . [facility] Comment on above: Performed By: #### C BC #### [address] MCH (RBC) [Entitic mass] 30.3 pg Normal 24.7-34.3 [facility] Comment on above: Performed By: #### C BC #### [address] MCV (RBC) [Entitic vol] 89.0 fL Normal 80-100 [facility] Comment on above: Performed By: #### C BC #### [address] Mean Corpuscular HGB Conc 34.0 g/dL Normal 32.0-35.0 [facility] Comment on above: Performed By: #### C BC #### [address] Monocytes (Bld) [#/Vol] 0.6 10*3/uL Normal 0.0-0.8 [facility] Comment on above: Performed By: #### C BC #### [address] Monocytes/100 WBC (Bld) 5.1 % Normal . [facility] Comment on above: Performed By: #### C BC #### [address] Neutrophils (Bld) [#/Vol] 8.6 10*3/uL High 1.8-7.7 [facility] Comment on above: Performed By: #### C BC #### [address] Neutrophils/100 WBC (Bld) 78.7 % Normal . [facility] Comment on above: Performed By: #### C BC #### [address] NRBC% 0.1 /100{WBC} Normal 0-0.5 [facility] Comment on above: Performed By: #### C BC #### [address] Platelet mean volume (Bld) [Entitic vol] 9.9 fL Normal 6.3-10.7 [facility] Comment on above: Performed By: #### C BC #### [address] Platelets (Bld) [#/Vol] 148 10*3/uL Low 150-450 [facility] Comment on above: Performed By: #### C BC #### [address] RBC (Bld) [#/Vol] 4.17 10*6/uL Normal 3.60-5.00 [facility] Comment on above: Performed By: #### C BC #### [address] WBC (Bld) [#/Vol] 10.9 10*3/uL Normal 3.8-11.6 [facility] Comment on above: Performed By: #### C BC #### [address] Glucose Poct Glucometerson 0 04-11-2025 Glucose [Mass/Vol] 109 mg/dL Normal [facility] Comment on above: Result Comment: [place] Glucose Reference Range is dependent on time and content of last meal. Glucose of more than 200 mg/dL in a nonstressed, ambulatory subject supports the diagnosis of Diabetes Mellitus. PERFORMED BY: [place] [address] PATHOLOGIST REPAIR ARMATURE WINDER ALISA GOMEZ M.D. Performed By: #### G LULS #### Point of Care testing , [facility] 04-11-2025 L - -------- Specimen: [id number] Received: 04/13/25 Status: NIDA Meade Num: [id number] Spec Type: Surgical Subm Dr: Clyde Choi DO Tissues: A Appendix - Other than Incidental (APPENDIX) Procedures: HE/2, Gross/Micro L3 -------- Age/ Patient Sex Location Account Attending Physician -------- Kiya Bhat 49/F 4P [id number] Clyde Choi DO -------- SPEC NUM: [id number] RECD: 04/13/25 STATUS: NIDA MEADE NUM: [id number] CIERA: 04/11/25-[address]: Clyde Choi DO ENTERED: 04/13/25 [facility] DR: SPEC TYPE: Surgical DEPT: S ENTERED BY: [id number] RECV BY: [id number] ORDERED: HE/2, Gross/Micro L3 ORDERED: HE/2, Gross/Micro L3 Pathological Diagnosis Appendix: ? Acute appendicitis and acute serositis Clinical Information Appendicitis Gross Description Part A is received in formalin labeled with the patients name, date of , and appendix is a vermiform appendix, 9.5 cm in length by up to 1.2 cm in diameter, resected with mesoappendix, up to 1.5 cm in thickness. The specimen is received stapled at the proximal margin; the proximal margin is inked black. The serosa is ha-pink to jon-purple, vascular, smooth and glistening with patchy regions of adherent, jon-ha, friable plaque- like material, consistent with exudate. Serial sections reveal a dilated lumen, up to 0.9 cm in diameter, filled with ha-brown fecal material. No perforations are identified. The inked black proximal margin and dilated cross-sections with exudate are submitted in A1 with the longitudinally bisected distal tip submitted in A2. (2, , [id number] A) CPT Codes 61810 -------- -------- Specimen: [id number] Received: 04/13/25 Status: NIDA Meade Num: [id number] Spec Type: Surgical Subm Dr: Clyde Choi DO Tissues: A Appendix - Other than Incidental (APPENDIX) Procedures: HE/2, Gross/Micro L3 -------- Patient: Kiya Bhat [id number] (Continued) -------- Signed (signature on file) Jagdish Reyes MD 04/14/25 1512 Normal [facility] Office Visit (KATE ) KIYA BHAT ([id number]) 1975 F Date Time Provider Department 12/24/24 2:15 PM EDISON ARDON During your visit today, we recorded the following information about you: Temperature Pulse Respiration Blood pressure 98.2 degrees 89/minute 14/minute 117/79 Weight Height 85.3 kg 1.6 m Heena Manjarrez MD 01/03/2025 9:17 AM Signed [facility] THOR[facility] OUTPATIENT CONSULT NOTE Kiya Bhat [id number] Requesting Provider: Self Thoracic Physician: Edison Ardon MD Chief Complaint: hiatal hernia Impression: [...] stress test, walking test, and PFTs SIGNATURE: Heena Manjarrez MD DATE of SERVICE: 12/24/2024 TIME [...] DATA: Radiology: Patient is being referred to Edison Ardon by Self for Hiatal Hernia Pathology: [...] personally performed by: Duglas Manjarrez Patient-Entered Questionnaire [facility] Esophageal Questionnaire 12/23/2024 Domain Symptom Raw [...] (Range 6-36) Incomplete (Range 6-30) Incomplete Incomplete Edison Ardon MD 01/03/2025 9:17 AM Signed I have read and reviewed the documentation and agree. I wish to add the following (more content not included)... Normal [facility] XR ESOPHAGRAMon 12-24-2024 XR ESOPHAGRAM * [...] with organoaxial orientation. No demonstrated gastroesophageal reflux. Durable Medical Equipment Repairer: [facility] Transcribe Date/Time: Dec 24 2024 2:30P Dictated by : ALANNA FOSTER MD This examination was interpreted and the report reviewed and electronically signed by: LOREE VALDEZ MD on Dec 24 2024 3:55PM EST [id number] Normal [facility] XR Esophagus Views W contras t Thad 12-24-2024 IMPRESSION: Large hiatal hernia (type III) with organoaxial orientation. No demonstrated gastroesophageal reflux. Durable Medical Equipment Repairer: [facility] Transcribe Date/Time: Dec 24 2024 2:30P [...] the entire procedure. DIVISION OF RADIOLOGY Provider, [facility] - 12/24/2024 * * *Final Report* * * DATE OF EXAM: Dec 24 2024 2:05PM X 5378 - XR ESOPHAGRAM / PROCEDURE REASON: [...] with organoaxial orientation. No demonstrated gastroesophageal reflux. Durable Medical Equipment Repairer: STEFANI Transcribe Date/Time: Dec 24 2024 2:30P Dictated by : ALANNA FOSTER MD This examination was interpreted and the report reviewed and electronically signed by: LOREE VALDEZ MD on Dec 24 2024 3:55PM EST [facility] Radiology Study observation (narrative) [facility] XR Esophagus Views W jhonatan berkowitz POOrdered By: Ccf Provider on 12-24-2024 [facility] CNPNon 11-24-2024 CNPN Telephone (THORMN) KIYA BHAT ([id number]) 1975 F Date Time Provider Department 11/24/24 EDISON ARDON During your visit today, we recorded the following information about you: Weight 88.9 kg Renae Holly 11/24/2024 1:28 PM Signed LOCAL PATIENT Received [employer] Staff Message from Gill Brar is former pt of Edison Ardon M.D., Ph.D. by SELF Patient last seen in 2019 Patient diagnosis/Reason for consult: Diaphragmatic hernia triage process explained: Yes Patient will receive a call from Thoracic NPM after triage review with surgeon to discuss any additional testing and/or consults that will be scheduled. Pt will then receive a call from our scheduling office for scheduling. Please call pt at [phone]. Patient was informed consultation could be at [place] or [facility] [place]: No Patient Registration: Registration complete/updated: yes Insurance card(s) scanned in [employer] with in the past year: No Pt's [employer] is active. Ok to communicate to pt via Glanse yes Medical Records: Records in [facility] (internal CC records): Yes (old) Imaging in [facility] (internal CC records): Yes (old) Care [...] appointment scheduling Patient is being referred to Edison Ardon by Self for Hiatal Hernia Pathology: [...] weight with diet exercise) esophagram Jenni Mg, Trice Hackett 11/24/2024 4:38 PM Signed Patient confirmed appointment scheduled with Dr. Ardon with barium on 12/24/24 Referring Provider: SELF [200] Allergies As of Date: 11/24/2024 (No Known Allergies) Date Reviewed: 10/08/2019 Reviewed by: Darya Tony (Sara) - Fully Assessed Reason for Visit: Consult [173] Appointment Confirmation [3257] Primary Visit Diagnosis:Diaphragmat ic hernia without obstruction and without gangrene [K44.9] Order(s):XR ESOPHAGRAM [9196050] Order #: [id number] FUTURE Prescriptions as of 11/24/2024 - multivitamin [...] 1 tablet by mouth once daily. - xwjggrv-pegoubryc-usc dunaway D3 (CALCIUM 500+D) 500 mg(1,250mg) -200 unit per tablet Take 1 tablet by mouth once daily. - Ibuprofen 200 mg cap (more content not included)... [facility] ([id number]) 1975 F Date Time Provider Department 1/27/25 EDISNO ARDON During your visit today, we recorded the following information about you: [place] Renae Elliott 11/24/2024 2:15 PM Signed Attempt #1 Requested Medical Records from the office of Dr. Cabrera Jones Spoke to: Jacki Phone #: [phone] Fax #: [phone] Jacki agreed to fax the last office note Renae Elliott November 24, 2024 2:12 PM Renae Holly 11/24/2024 4:06 PM Signed Received outside office note (scanned) to [employer]. Renae [place] Historical Records Administrator Allergies As of Date: 11/24/2024 (No Known Allergies) Date Reviewed: 10/08/2019 Reviewed by: Darya Tony (Mt) - Fully Assessed Reason for Visit: Request Outside Medical Records [[id number]] Received Outside Medical Records [[id number]] Prescriptions as of 11/24/2024 - multivitamin (MULTIPLE [...] 1 tablet by mouth once daily. - kpuwcai-xdchlcbrm-gqn dunaway D3 (CALCIUM 500+D) 500 mg(1,250mg) -200 unit per tablet Take 1 tablet by mouth once daily. - Ibuprofen 200 mg cap Take 1-2 capsules by mouth as needed (for pain). Problem List As Of Date: 11/24/2024 (None) Encounter Status:Closed by MATY ELLIOTT RENAE on 11/24/24 [facility] K[facility] BHAT ([id number]) 1975 F Date Time Provider Department 11/24/24 EDISON ARDON During your visit today, we recorded the following information about you: Gill Brar 11/24/2024 11:33 AM Signed .RECEIVED CALL FROM: Patient PATIENT INFORMATION: Name: Kiya Bhat : 1975 (home) [phone] (cell) Email: [email or web address] Referring Provider: No referring provider defined for this encounter. Phone: N/A Fax: Requested Surgeon: Edison Ardon M.D., Ph.D. Reason for appointment/diagnosis : Diaphragmatic hernia without obstruction and without gangrene Gill Brar November 24, 2024 11:32 AM Allergies As of Date: 11/24/2024 (No Known Allergies) Date Reviewed: 10/08/2019 Reviewed by: Darya Tony (Mt) - Fully Assessed Reason for Visit: Appointment [...] 1 tablet by mouth once daily. - mpnbbws-wbwrvtiam-bcl dunaway D3 (CALCIUM 500+D) 500 mg(1,250mg) -200 unit per tablet Take 1 tablet by mouth once daily. - Ibuprofen 200 mg cap Take 1-2 capsules by mouth as needed (for pain). Problem List As Of Date: 11/24/2024 (None) Encounter Status:Closed by GILL BRAR on 11/24/24 Normal [facility] Covid-19 PCR (CVD[facility])on 04-28 SARS-CoV-2 (COVID-19) RNA SUKHWINDER+probe Ql (Unsp spec) Not detected Normal NOT DETECTED [facility] Comment on above: Result Comment: This test is not yet approved or cleared by the [place] FDA. When there are no FDA-approved or cleared tests available, and other criteria are met, FDA can make tests available under an emergency access mechanism called an Emergency Use Authorization (EUA). The EUA for this test is supported by the [place] of Health and Human Service's (HHS's) declaration [...] #### C MP, BNP, TSH, HSTROPN #### [facility] [address] [place] [address] Dr. Emily Hercules Facesheeton 03-02-2022 Facesheet [id number] .[id number]:127 Normal [facility] Physician Referralon 022 Physician Referral [id number]. 00CD:127 Normal [facility]30 SARS-CoV-2 (COVID-19) RNA SUKHWINDER+probe Ql (Unsp spec) Not detected Normal NOT DETECTED [facility] Comment on above: Result Comment: This test is not yet approved or cleared by the [place] FDA. When there are no FDA-approved or cleared tests available, and other criteria are met, FDA can make tests available under an emergency access mechanism called an Emergency Use Authorization (EUA). The EUA for this test is supported by the [place] of Health and Human Service's (HHS's) declaration [...] consistent with SARS-CoV-2. Performed By: #### C VDTB #### [facility] [address] [address] [address] Emily Hercules MG MAMM SCREEN 3D SHELLY CADon 09-15-2021 MG MAMM SCREEN 3D SHELLY CAD Patient: KIYA BHAT Exam Date: 09/15/2021 : 1975 Gender:F Ordering : DR CABRERA JONES . Admission #: [id number] Family : Order #: [id number] CLICK HERE TO VIEW EXAM RADIOLOGY REPORT PROCEDURE: MAMMOGRAM SCREENING 3D BILATERAL CAD COMPARISON: None. INDICATIONS: Screening mammography Calculator Name NCI Breast Cancer Risk Assessment Tool 5 Year Breast Cancer Risk 0.70% Lifetime Breast Cancer Risk 6.70% Personal Breast Cancer No Personal Ovarian Cancer No Treatments None Family Cancers Grandmother-maternal with leukemia cancer at age 38. LOCATION: [facility] BREAST COMPOSITION: Scattered areas fibroglandular density. [...] MD on 09/15/2021 at 11:59 Normal [facility] FSHon 09-03-2021 FSH 8.8 mIU/mL Normal [facility] Comment on above: Result Comment: Adul t Female: Follicular phase 3.5 - 12.5 Ovulation phase 4.7 - 21.5 Luteal phase 1.7 - 7.7 Postmenopausal 25.8 - 134.8 Performed By: #### L BCFS #### [facility] [address] [place] [address] Dr. Emily Hercules INSULINon 09-03-2021 Insulin 19.4 uIU/mL Normal 2.6-24.9 [facility] Comment on above: Performed By: #### C MP, BNP, TSH, HSTROPN #### [facility] [address] [place] [address] Dr. Emily Hercules CBC AUTO DIFFon 09-02-2021 BASO # 0.1 103/ul Normal 0.0-0.1 [facility] Comment on above: Performed By: #### C BC #### [facility] [address] [place] [address] Dr. Emily Hercules Basophils/100 WBC (Bld) 0.7 % Normal 0.2-2.0 [facility] Comment on above: Performed By: #### C BC #### [facility] [facility] [address] [place] [address] Dr. Emily Hercules EO # 0.3 103/ul Normal 0.0-0.7 [facility] Comment on above: Performed By: #### C BC #### [facility] [address] [place] [address] Dr. Emily Hercules Eosinophils/100 WBC (Bld) 3.8 % Normal 0.9-7.0 [facility] Comment on above: Performed By: #### C BC #### [facility] [address] [place] [address] Dr. Emily Hercules Erythrocyte distribution width (RBC) [Ratio] 13.6 % Normal 11.0-15.0 [facility] Comment on above: Performed By: #### C BC #### [facility] [address] [place] [address] Dr. Emily Hercules Hematocrit (Bld) [Volume fraction] 42.6 % Normal 36.0-48.0 [facility] Comment on above: Performed By: #### C BC #### [facility] [address] [place] [address] Dr. Emily Hercules Hemoglobin (Bld) [Mass/Vol] 14.5 g/dL Normal 12.0-16.0 [facility] Comment on above: Performed By: #### C BC #### [facility] [address] [address] [address] Emily Hercules IG # 0.08 10e3/ul Critically high 0.00-0.03 [facility] Comment on above: Performed By: #### C BC #### [facility] [address] [address] [address] Emily Hercules IG % 1.0 % Critically high 0.0-0.5 [facility] Comment on above: Performed By: #### C BC #### [facility] [address] [address] [address] Emily Hercules LYMPH # 2.2 103/ul Normal 1.2-3.8 [facility] Comment on above: Performed By: #### C BC #### [facility] [address] [place] [address] Dr. Emily Hercules Lymphocytes/100 WBC (Bld) 27.4 % Normal 20.5-60.0 [facility] Comment on above: Performed By: #### C BC #### [facility] [address] [place] [address] Dr. Emily Hercules MANUAL DIFF REQ NO Normal [facility] Comment on above: Performed By: #### C BC #### [facility] [address] [place] [address] Dr. Emily Hercules MCH (RBC) [Entitic mass] 30.2 pg Normal 26.7-34.0 [facility] Comment on above: Performed By: #### C BC #### [facility] [address] [place] [address] Dr. Emily Hercules MCHC (RBC) [Mass/Vol] 34.0 g/dL Normal 29.9-35.2 [facility] Comment on above: Performed By: #### C BC #### [facility] [address] [place] [address] Dr. Emily Hercules MCV (RBC) [Entitic vol] 88.8 fL Normal 81.0-99.0 [facility] Comment on above: Performed By: #### C BC #### [facility] [address] [place] [address] Dr. Emily Hercules MONO # 0.5 103/ul Normal 0.3-0.8 [facility] Comment on above: Performed By: #### C BC #### [facility] [address] [place] [address] Dr. Emily Hercules Monocytes/100 WBC (Bld) 6.2 % Normal 1.7-12.0 [facility] Comment on above: Performed By: #### C BC #### [facility] [address] [place] [address] Dr. Emily Hercules NEUT # 4.9 103/ul Normal 1.4-6.5 [facility] Comment on above: Performed By: #### C BC #### [facility] [address] [place] [address] Dr. Emily Hercules Neutrophils/100 WBC (Bld) 60.9 % Normal 43.0-75.0 [facility] Comment on above: Performed By: #### C BC #### [facility] [address] [place] [address] Dr. Emily Hercules Platelet mean volume (Bld) [Entitic vol] 11.6 fL Normal 9.5-13.5 [facility] Comment on above: Performed By: #### C BC #### [facility] [address] [place] [address] Dr. Eimly Hercules PLT 180 103/ul Normal 150-450 [facility] Comment on above: Performed By: #### C BC #### [facility] [address] [place] [address] Dr. Emily Hercules RBC 4.80 106/ul Normal 4.20-5.40 [facility] Comment on above: Performed By: #### C BC #### [facility] [address] [place] [address] Dr. Emily Hercules WBC 8.1 103/ul Normal 4.0-11.0 [facility] Comment on above: Performed By: #### C BC #### [facility] [address] [address] [address] Emily Hercules FREE THYROXINE INDEX T7on FTI 3.[address] [facility] Comment on above: Performed By: #### T 7, CMP, LIPID, TSH #### [facility] [address] [place] [address] Dr. Emily Hercules T3U 35.0 % Normal 23.5-40.5 [facility] Comment on above: Performed By: #### T 7, CMP, LIPID, TSH #### [facility] [address] [place] [address] Dr. Emily Hercules T4 [Mass/Vol] 9.90 ug/dL Normal 5.53-11.00 [facility] Comment on above: Performed By: #### T 7, CMP, LIPID, TSH #### [facility] [address] [place] [address] Dr. Emily Hercules GLYCOHEMOGLOBIN A1Con 2020 ADA RECOMMENDATION ADA THERAPEUTIC TARGET 6.0 - 7.0 ACTION SUGGESTED > 7.[address] [facility] Comment on above: Performed By: #### C MP, BNP, TSH, HSTROPN #### [facility] [address] [address] [address] Emily Hercules Glucose [Mass/Vol] 114 mg/dL Normal [facility] Comment on above: Performed By: #### C MP, BNP, TSH, HSTROPN #### [facility] [address] [place] [address] Dr. Emily Hercules HbA1c (Bld) [Mass fraction] 5.6 % Normal <=6.0 [facility] Comment on above: Performed By: #### C MP, BNP, TSH, HSTROPN #### [facility] [address] [place] [address] Dr. Emily Hercules IRONon 09-02-2021 Iron [Mass/Vol] 111.0 ug/dL Normal 37.0-170.0 [facility] Comment on above: Performed By: #### C MP, BNP, TSH, HSTROPN #### [facility] [address] [place], [place] [id number] Dr. Emily Hercules LIPID PROFILEon 09-02-2021 CHOL-HDL RATIO NORM SEE BELOW Normal [facility] Comment on above: Result Comment: 3.3 - 4.4 LOW RISK 4.4 - 7.1 AVERAGE RISK 7.1 - 11.0 MODERATE RISK >11.0 HIGH RISK Performed By: #### C MP, BNP, TSH, HSTROPN #### [facility] [address] [place] [address] Dr. Emily Hercules Cholesterol [Mass/Vol] 183 mg/dL Normal <=200 [facility] Comment on above: Performed By: #### C MP, BNP, TSH, HSTROPN #### [facility] [address] [place] [address] Dr. Emily Hercules Cholesterol in HDL [Mass/Vol] 43 mg/dL Normal [facility] Comment on above: Performed By: #### C MP, BNP, TSH, HSTROPN #### [facility] [address] [place] [address] Dr. Emily Hercules Cholesterol in LDL [Mass/Vol] 109.0 mg/dL Normal [facility] Comment on above: Performed By: #### C MP, BNP, TSH, HSTROPN #### [facility] [address] [place] [address] Dr. Emily Hercules Cholesterol.total/Ch olesterol in HDL [Mass ratio] 4.3 {ratio} Normal [facility] Comment on above: Performed By: #### C MP, BNP, TSH, HSTROPN #### [facility] [address] [place] [address] Dr. Emily Hercules HDL NORMAL > or = 60 mg/dl - LO W CARDIOVASCULAR RISK <40 mg/dl - HIGH CARDIOVASCULAR RISK Normal [facility] Comment on above: Performed By: #### C MP, BNP, TSH, HSTROPN #### [facility] [address] [place] [address] Dr. Emily Hercules LDL CALC NORMAL SEE BELOW Normal [facility] Comment on above: Result Comment: <100 mg/dl OPTIMAL 100 - 129 mg/dl NEAR OR ABOVE OPTIMAL 130 - 159 mg/dl BORDERLINE HIGH 160 - 189 mg/dl HIGH >190 mg/dl VERY HIGH Performed By: #### C MP, BNP, TSH, HSTROPN #### [facility] [address] [address] [address] Emily Hercules Triglyceride [Mass/Vol] 155 mg/dL Critically high <=150 [facility] Comment on above: Performed By: #### C MP, BNP, TSH, HSTROPN #### [facility] [address] [address] [address] Emily Hercules VLDL CALC 31.0 mg/dL Normal [facility] Comment on above: Performed By: #### C MP, BNP, TSH, HSTROPN #### [facility] [address] [address] [address] Emily Hercules PROF 14(COMP METB)on 021 Albumin [Mass/Vol] 3.8 g/dL Normal 3.5-5.0 [facility] Comment on above: Performed By: #### T 7, CMP, LIPID, TSH #### [facility] [address] [address] [address] Emily Hercules Albumin/Globulin [Mass ratio] 1.1 {ratio} Normal [facility] Comment on above: Performed By: #### T 7, CMP, LIPID, TSH #### [facility] [address] [address] [address] Emily Hercules ALP [Catalytic activity/Vol] 57 U/L Normal 38-126 [facility] Comment on above: Performed By: #### T 7, CMP, LIPID, TSH #### [facility] [address] [address] [address] Emily Hercules ALT [Catalytic activity/Vol] 57 U/L Critically high 9-52 [facility] Comment on above: Performed By: #### T 7, CMP, LIPID, TSH #### [facility] [address] [address] [address] Emily Hercules Anion gap [Moles/Vol] 11.7 mmol/L Normal [facility] Comment on above: Performed By: #### T 7, CMP, LIPID, TSH #### [facility] [address] [address] [address] Emily Hercules AST [Catalytic activity/Vol] 35 U/L Normal 14-36 [facility] Comment on above: Performed By: #### T 7, CMP, LIPID, TSH #### [facility] [address] [address] [address] Emily Hercules Bilirubin [Mass/Vol] 0.7 mg/dL Normal 0.2-1.3 [facility] Comment on above: Performed By: #### T 7, CMP, LIPID, TSH #### [facility] [address] [address] [address] Emily Hercules Calcium [Mass/Vol] 8.8 mg/dL Normal 8.4-10.2 [facility] Comment on above: Performed By: #### T 7, CMP, LIPID, TSH #### [facility] [address] [place] [address] Dr. Emily Hercules Chloride [Moles/Vol] 105 mmol/L Normal 98-107 [facility] Comment on above: Performed By: #### T 7, CMP, LIPID, TSH #### [facility] [address] [place] [address] Dr. Emily Hercules CO2 [Moles/Vol] 26.1 mmol/L Normal 22.0-30.0 [facility] Comment on above: Performed By: #### T 7, CMP, LIPID, TSH #### [facility] [address] [address] [address] Emily Hercules Creatinine [Mass/Vol] 1.34 mg/dL Critically high 0.52-1.04 [facility] Comment on above: Performed By: #### T 7, CMP, LIPID, TSH #### [facility] [address] [place] [address] Dr. Emily Hercules EGFR-AF MALAYSIAN 51 mL/min/1.73m2 Critically low >=60 [facility] Comment on above: Performed By: #### T 7, CMP, LIPID, TSH #### [facility] [address] [place] [address] Dr. Emily Hercules EGFR-NON AF MALAYSIAN 42 mL/min/1.73m2 Critically low >=60 [facility] Comment on above: Performed By: #### T 7, CMP, LIPID, TSH #### [facility] [address] [address] [address] Emily Hercules Globulin (S) [Mass/Vol] 3.4 g/dL Normal [facility] Comment on above: Performed By: #### T 7, CMP, LIPID, TSH #### [facility] [address] [address] [address] Emily Hercules Glucose [Mass/Vol] 92 mg/dL Normal 74-106 [facility] Comment on above: Performed By: #### T 7, CMP, LIPID, TSH #### [facility] [address] [place] [address] Dr. Emily Hercules Potassium [Moles/Vol] 3.8 mmol/L Normal 3.4-5.0 [facility] Comment on above: Performed By: #### T 7, CMP, LIPID, TSH #### [facility] [address] [address] [address] Emily Hercules Protein [Mass/Vol] 7.2 g/dL Normal 6.1-8.2 [facility] Comment on above: Performed By: #### T 7, CMP, LIPID, TSH #### [facility] [address] [place] [address] Dr. Emily Hercules Sodium [Moles/Vol] 139 mmol/L Normal 137-145 [facility] Comment on above: Performed By: #### T 7, CMP, LIPID, TSH #### [facility] [address] [address] [address] Emily Hercules Urea nitrogen [Mass/Vol] 21.0 mg/dL Critically high 7.0-17.0 [facility] Comment on above: Performed By: #### T 7, CMP, LIPID, TSH #### [facility] [address] [address] [address] Emily Hercules Urea nitrogen/Creatinine [Mass ratio] 15.7 mg/mg Normal [facility] Comment on above: Performed By: #### T 7, CMP, LIPID, TSH #### [facility] [address] [address] [address] Emily Hercules TSHon 09-02-2021 TSH 1.130 uIU/mL Normal 0.470-4.680 [facility] Comment on above: Performed By: #### T 7, CMP, LIPID, TSH #### [facility] [address] [place] [address] Dr. Emily Hercules TSH RANGE SEE BELOW Normal [facility] Comment on above: Result Comment: <0.3 4 UIU/ml HYPERTHYROID 0.34-5.60 UIU/ml EUTHYROID >5.60 UIU/ml HYPOTHYROID Performed By: #### T 7, CMP, LIPID, TSH #### [facility] [address] [place] [address] Dr. Emily Hercules BNPon 08-24-2021 Natriuretic peptide B (Bld) [Mass/Vol] 98.0 pg/mL Normal <=450.0 [facility] Comment on above: Performed By: #### C MP, BNP, TSH, HSTROPN #### [facility] [address] [place] [address] Dr. Emily Hercules CBC AUTO DIFFon 08-24-2021 BASO # 0.0 103/ul Normal 0.0-0.1 [facility] Comment on above: Performed By: #### C MP, BNP, TSH, HSTROPN #### [facility] [address] [place] [address] Dr. Emily Hercules Basophils/100 WBC (Bld) 0.6 % Normal 0.2-2.0 [facility] Comment on above: Performed By: #### C MP, BNP, TSH, HSTROPN #### [facility] [address] [place] [address] Dr. Emily Hercules EO # 0.3 103/ul Normal 0.0-0.7 [facility] Comment on above: Performed By: #### C MP, BNP, TSH, HSTROPN #### [facility] [address] [place] [address] Dr. Emily Hercules Eosinophils/100 WBC (Bld) 4.1 % Normal 0.9-7.0 [facility] Comment on above: Performed By: #### C MP, BNP, TSH, HSTROPN #### [facility] [address] [place] [address] Dr. Emily Hercules Erythrocyte distribution width (RBC) [Ratio] 13.6 % Normal 11.0-15.0 [facility] Comment on above: Performed By: #### C MP, BNP, TSH, HSTROPN #### [facility] [address] [place] [address] Dr. Emily Hercules Hematocrit (Bld) [Volume fraction] 39.4 % Normal 36.0-48.0 [facility] Comment on above: Performed By: #### C MP, BNP, TSH, HSTROPN #### [facility] [address] [place] [address] Dr. Emily Hercules Hemoglobin (Bld) [Mass/Vol] 13.4 g/dL Normal 12.0-16.0 [facility] Comment on above: Performed By: #### C MP, BNP, TSH, HSTROPN #### [facility] [address] [place] [address] Dr. Emily Hercules IG # 0.02 10e3/ul Normal 0.00-0.03 [facility] Comment on above: Performed By: #### C MP, BNP, TSH, HSTROPN #### [facility] [address] [place] [address] Dr. Emily Hercules IG % 0.3 % Normal 0.0-0.5 [facility] Comment on above: Performed By: #### C MP, BNP, TSH, HSTROPN #### [facility] [address] [place] [address] Dr. Emily Hercules LYMPH # 1.8 103/ul Normal 1.2-3.8 [facility] Comment on above: Performed By: #### C MP, BNP, TSH, HSTROPN #### [facility] [address] [place] [address] Dr. Emily Hercules Lymphocytes/100 WBC (Bld) 25.9 % Normal 20.5-60.0 [facility] Comment on above: Performed By: #### C MP, BNP, TSH, HSTROPN #### [facility] [address] [place] [address] Dr. Emily Hercules MANUAL DIFF REQ NO Normal [facility] Comment on above: Performed By: #### C MP, BNP, TSH, HSTROPN #### [facility] [address] [place] [address] Dr. Emily Hercules MCH (RBC) [Entitic mass] 29.9 pg Normal 26.7-34.0 [facility] Comment on above: Performed By: #### C MP, BNP, TSH, HSTROPN #### [facility] [address] [place] [address] Dr. Emily Hercules MCHC (RBC) [Mass/Vol] 34.0 g/dL Normal 29.9-35.2 [facility] Comment on above: Performed By: #### C MP, BNP, TSH, HSTROPN #### [facility] [address] [place] [address] Dr. Emily Hercules MCV (RBC) [Entitic vol] 87.9 fL Normal 81.0-99.0 [facility] Comment on above: Performed By: #### C MP, BNP, TSH, HSTROPN #### [facility] [address] [place] [address] Dr. Emily Hercules MONO # 0.4 103/ul Normal 0.3-0.8 [facility] Comment on above: Performed By: #### C MP, BNP, TSH, HSTROPN #### [facility] [address] [place] [address] Dr. Emily Hercules Monocytes/100 WBC (Bld) 5.8 % Normal 1.7-12.0 [facility] Comment on above: Performed By: #### C MP, BNP, TSH, HSTROPN #### [facility] [address] [place] [address] Dr. Emily Hercules NEUT # 4.4 103/ul Normal 1.4-6.5 [facility] Comment on above: Performed By: #### C MP, BNP, TSH, HSTROPN #### [facility] [address] [address] [address] Emily Hercules Neutrophils/100 WBC (Bld) 63.3 % Normal 43.0-75.0 [facility] Comment on above: Performed By: #### C MP, BNP, TSH, HSTROPN #### [facility] [address] [place] [address] Dr. Emily Hercules Platelet mean volume (Bld) [Entitic vol] 11.7 fL Normal 9.5-13.5 [facility] Comment on above: Performed By: #### C MP, BNP, TSH, HSTROPN #### [facility] [address] [place] [address] Dr. Emily Hercules PLT 122 103/ul Critically low 150-450 [facility] Comment on above: Performed By: #### C MP, BNP, TSH, HSTROPN #### [facility] [address] [place] [address] Dr. Emily Hercules RBC 4.48 106/ul Normal 4.20-5.40 [facility] Comment on above: Performed By: #### C MP, BNP, TSH, HSTROPN #### [facility] [address] [place] [address] Dr. Emily Hercules WBC 6.9 103/ul Normal 4.0-11.0 [facility] Comment on above: Performed By: #### C MP, BNP, TSH, HSTROPN #### [facility] [address] [place] [address] Dr. Emily Hercules CTA CHEST WO W [...] NATY BALDERRAMA Date: 2021-08-24 17:14 Normal [facility] Covid-19 PCR (CVDTBH)on 07-30 SARS-CoV-2 (COVID-19) RNA SUKHWINDER+probe Ql (Unsp spec) Not detected Normal NOT DETECTED [facility] Comment on above: Result Comment: This test is not yet approved or cleared by the [place] FDA. When there are no FDA-approved or cleared tests available, and other criteria are met, FDA can make tests available under an emergency access mechanism called an Emergency Use Authorization (EUA). The EUA for this test is supported by the [employer] of Health and Human Service's (HHS's) declaration [...] #### C MP, BNP, TSH, HSTROPN #### [facility] [address] [place] [address] Dr. Emily Hercules LACTATE/LACTIC ACIDon 2020 Lactate [Moles/Vol] 0.5 mmol/L Critically low 0.7-2.0 [facility] Comment on above: Performed By: #### C MP, BNP, TSH, HSTROPN #### [facility] [address] [place] [address] Dr. Emily Hercules PROF 14(COMP METB)on 021 Albumin [Mass/Vol] 3.7 g/dL Normal 3.5-5.0 [facility] Comment on above: Performed By: #### C MP, BNP, TSH, HSTROPN #### [facility] [address] [place] [address] Dr. Emily Hercules Albumin/Globulin [Mass ratio] 1.0 {ratio} Normal [facility] Comment on above: Performed By: #### C MP, BNP, TSH, HSTROPN #### [facility] [address] [place] [address] Dr. Emily Hercules ALP [Catalytic activity/Vol] 63 U/L Normal 38-126 [facility] Comment on above: Performed By: #### C MP, BNP, TSH, HSTROPN #### [facility] [address] [place] [address] Dr. Emily Hercules ALT [Catalytic activity/Vol] 66 U/L Critically high 9-52 [facility] Comment on above: Performed By: #### C MP, BNP, TSH, HSTROPN #### [facility] [address] [place] [address] Dr. Emily Hercules Anion gap [Moles/Vol] 12.3 mmol/L Normal [facility] Comment on above: Performed By: #### C MP, BNP, TSH, HSTROPN #### [facility] [address] [place] [address] Dr. Emily Hercules AST [Catalytic activity/Vol] 48 U/L Critically high 14-36 [facility] Comment on above: Performed By: #### C MP, BNP, TSH, HSTROPN #### [facility] [address] [place] [address] Dr. Emily Hercules Bilirubin [Mass/Vol] 0.6 mg/dL Normal 0.2-1.3 [facility] Comment on above: Performed By: #### C MP, BNP, TSH, HSTROPN #### [facility] [address] [place] [address] Dr. Emily Hercules Calcium [Mass/Vol] 9.2 mg/dL Normal 8.4-10.2 [facility] Comment on above: Performed By: #### C MP, BNP, TSH, HSTROPN #### [facility] [address] [place] [address] Dr. Emily Hercules Chloride [Moles/Vol] 103 mmol/L Normal 98-107 [facility] Comment on above: Performed By: #### C MP, BNP, TSH, HSTROPN #### [facility] [address] [place] [address] Dr. Emily Hercules CO2 [Moles/Vol] 25.2 mmol/L Normal 22.0-30.0 [facility] Comment on above: Performed By: #### C MP, BNP, TSH, HSTROPN #### [facility] [address] [place] [address] Dr. Emily Hercules Creatinine [Mass/Vol] 1.49 mg/dL Critically high 0.52-1.04 [facility] Comment on above: Performed By: #### C MP, BNP, TSH, HSTROPN #### [facility] [address] [address] [address] Emily Hercules EGFR-AF MALAYSIAN 45 mL/min/1.73m2 Critically low >=60 [facility] Comment on above: Performed By: #### C MP, BNP, TSH, HSTROPN #### [facility] [address] [address] [address] Emily Hercules EGFR-NON AF MALAYSIAN 37 mL/min/1.73m2 Critically low >=60 [facility] Comment on above: Performed By: #### C MP, BNP, TSH, HSTROPN #### [facility] [address] [place] [address] Dr. Emily Hercules Globulin (S) [Mass/Vol] 3.6 g/dL Normal [facility] Comment on above: Performed By: #### C MP, BNP, TSH, HSTROPN #### [facility] [address] [place] [address] Dr. Emily Hercules Glucose [Mass/Vol] 100 mg/dL Normal 74-106 [facility] Comment on above: Performed By: #### C MP, BNP, TSH, HSTROPN #### [facility] [address] [address] [address] Emily Hercules Potassium [Moles/Vol] 4.5 mmol/L Normal 3.4-5.0 [facility] Comment on above: Performed By: #### C MP, BNP, TSH, HSTROPN #### [facility] [address] [place] [address] Dr. Emily Hercules Protein [Mass/Vol] 7.3 g/dL Normal 6.1-8.2 [facility] Comment on above: Performed By: #### C MP, BNP, TSH, HSTROPN #### [facility] [address] [place] [address] Dr. Emily Hercules Sodium [Moles/Vol] 136 mmol/L Critically low 137-145 [facility] Comment on above: Performed By: #### C MP, BNP, TSH, HSTROPN #### [facility] [address] [place] [address] Dr. Emily Hercules Urea nitrogen [Mass/Vol] 22.0 mg/dL Critically high 7.0-17.0 [facility] Comment on above: Performed By: #### C MP, BNP, TSH, HSTROPN #### [facility] [address] [address] [address] Emily Hercules Urea nitrogen/Creatinine [Mass ratio] 14.8 mg/mg Normal [facility] Comment on above: Performed By: #### C MP, BNP, TSH, HSTROPN #### [facility] [address] [address] [address] Emily Hercules PROTIMEon 08-24-2021 INR Coag (PPP) [Relative time] 1.08 {INR} Normal [facility] Comment on above: Performed By: #### C MP, BNP, TSH, HSTROPN #### [facility] [address] [place] [address] Dr. Emily Hercules INR GUIDELINES SEE BELOW Normal [facility] Comment on above: Result Comment: GUILLERMO RED INR: 2.0 - 3.0 CONDITIONS NOT LISTED BELOW 2.5 - 3.5 FOR PROSTHETIC HEART VALVE REPLACEMENT 2.5 - 3.5 RECURRENT THROMBOSIS Performed By: #### C MP, BNP, TSH, HSTROPN #### [facility] [address] [place] [address] Dr. Emily Hercules PT Coag (PPP) [Time] 11.6 s Normal 9.0-11.6 [facility] Comment on above: Performed By: #### C MP, BNP, TSH, HSTROPN #### [facility] [address] [place] [address] Dr. Emily Hercules PTTon 08-24-2021 aPTT Coag (Bld) [Time] 29.6 s Normal 22.3-36.2 [facility] Comment on above: Performed By: #### C MP, BNP, TSH, HSTROPN #### [facility] [address] [place] [address] Dr. Emily Hercules TROPONIN, HIGH SENSITIVITYon 08-24-2021 HSTROP 4.9 pg/mL Normal 4.0-35.5 [facility] Comment on above: Result Comment: CUT- OFF POINTS HAVE BEEN ESTABLISHED BASED ON THE FOURTH UNIVERSAL DEFINITIONS OF MYOCARDIAL INFARCTION. THE UPPER REFERENCE LIMIT (URL) OF TROPONIN, DEFINED THE 99TH PERCENTILE OF cTnI DISTRIBUTION IN A REFERENCE POPULATION, HAS BEEN CONFIRMED THE DECISION THRESHOLD FOR ME DIAGNOSIS. Performed By: #### C MP, BNP, TSH, HSTROPN #### [facility] [address] [address] [address] Emily Hercules HSTROP 7.0 pg/mL Normal 4.0-35.5 [facility] Comment on above: Result Comment: CUT- OFF POINTS HAVE BEEN ESTABLISHED BASED ON THE FOURTH UNIVERSAL DEFINITIONS OF MYOCARDIAL INFARCTION. THE UPPER REFERENCE LIMIT (URL) OF TROPONIN, DEFINED THE 99TH PERCENTILE OF cTnI DISTRIBUTION IN A REFERENCE POPULATION, HAS BEEN CONFIRMED THE DECISION THRESHOLD FOR ME DIAGNOSIS. Performed By: #### C MP, BNP, TSH, HSTROPN #### [facility] [address] [address] [address] Emily Hercules TSHon 08-24-2021 TSH 1.614 uIU/mL Normal 0.470-4.680 [facility] Comment on above: Performed By: #### C MP, BNP, TSH, HSTROPN #### [facility] [address] [address] [address] Emily Hercules TSH RANGE SEE BELOW Normal [facility] Comment on above: Result Comment: <0.3 4 UIU/ml HYPERTHYROID 0.34-5.60 UIU/ml EUTHYROID >5.60 UIU/ml HYPOTHYROID Performed By: #### C MP, BNP, TSH, HSTROPN #### [facility] [address] [address] [address] Emily Hercules US KARINE DOP LEG [...] MARCIAL BOB Date: 2021-08-24 16:22 Normal [facility] Test (Serum)on Test, Serum Negative Normal [facility] Healthcare Comment on above: Performed By: #### 3 [id number] ####[facility] [address] [place] [address] CBC With Differentialon 04-28 Basophils Auto #/vol (Bld) 0.06 10*3/uL Normal 0.01-0.[address] [facility] Healthcare Comment on above: Performed By: #### 2 [id number] ####[facility] [address] [place] [address] Basophils/100 WBC Auto (Bld) 0.7 % Normal 0.1-1.[address] [facility] Healthcare Comment on above: Performed By: #### 2 [id number] ####[facility] [address] [place] [address] Eosinophils 0.51 10*3/uL High 0.04-0.50 [facility] Comment on above: Performed By: #### 2 [id number] ####[facility] [address] [place] [address] Eosinophils/100 leukocytes 6.1 % Normal 0.0-8.[address] [facility] Healthcare Comment on above: Performed By: #### 2 [id number] ####[facility] [address] [place] [address] Erythrocyte distribution width Auto Ratio (RBC) 13.2 % Normal 12.0-15.[address] [facility] Healthcare Comment on above: Performed By: #### 2 [id number] ####[facility] [address] [place] [address] Erythrocytes (RBC) 4.67 10*6/uL Normal 3.85-5.[address] [facility] Healthcare Comment on above: Performed By: #### 2 [id number] ####[facility] [address] [place] [address] Erythrocytes (RBC) 0.0 /100{WBCs} Normal [facility] Healthcare Comment on above: Performed By: #### 2 [id number] ####[facility] [address] [place] [address] Erythrocytes (RBC) 0.00 10*3/uL Normal [facility] Healthcare Comment on above: Performed By: #### 2 [id number] ####[facility] [address] [place] [address] Hematocrit (HCT) 40.8 % Normal 36.5-46.6 [facility]care Comment on above: Performed By: #### 2 [id number] ####[facility] [address] [place] [address] Hemoglobin mass conc (Bld) 13.6 g/dL Normal 11.8-15.[address] [facility] Healthcare Comment on above: Performed By: #### 2 [id number] ####[facility] [address] [place] [address] Imm Grans Absolute 0.02 10*3/uL Normal 0.00-0.[address] [facility] Healthcare Comment on above: Performed By: #### 2 [id number] ####[facility] [address] [place] [address] Immature granulocytes #/vol (Bld) 0.2 % Normal [facility] Healthcare Comment on above: Performed By: #### 2 [id number] ####[facility] [address] [place] [address] Lymphocytes 2.15 10*3/uL Normal 0.40-2.84 [facility] Comment on above: Performed By: #### 2 [id number] ####[facility] [address] [place] [address] Lymphocytes/100 leukocytes 25.8 % Normal 15.7-50.[address] [facility] Healthcare Comment on above: Performed By: #### 2 [id number] ####[facility] [address] [place] [address] MCH 29.1 pg Normal 27.5-33.0 [facility] Comment on above: Performed By: #### 2 [id number] ####[facility] [address] [place] [address] MCHC mass conc (RBC) 33.3 g/dL Normal 30.1-35.0 [facility] Comment on above: Performed By: #### 2 [id number] ####[facility] [address] [place] [address] MCV 87.4 fL Normal 85.4-100.0 [facility] Comment on above: Performed By: #### 2 [id number] ####[facility] [address] [place] [address] Monocytes 0.57 10*3/uL Normal 0.25-0.83 [facility] re Comment on above: Performed By: #### 2 694700 ####[facility] [address] [place] [address] Monocytes/100 leukocytes 6.9 % Normal 4.8-12.7 [facility] Comment on above: Performed By: #### 2 711035 ####[facility] [address] [place] [address] Neutrophils 5.01 10*3/uL Normal 1.95-6.85 [facility] are Comment on above: Performed By: #### 2 [id number] ####[facility] [address] [place] [address] Neutrophils/100 leukocytes 60.3 % Normal 36.8-73.2 [facility] Comment on above: Performed By: #### 2 [id number] ####[facility] [address] [place] [address] Platelet mean volume (PMV) 12.0 fL Normal 9.9-12.[address] [facility] Healthcare Comment on above: Performed By: #### 2 [id number] ####[facility] [address] [place] [address] Platelets 207 10*3/uL Normal 155-[address] [facility] Healthcar e Comment on above: Performed By: #### 2 [id number] ####[facility] [address] [place] [address] RDW SD 42.2 fL Normal 39.3-48.6 [facility] Comment on above: Performed By: #### 2 [id number] ####[facility] [address] [place] [address] WBC (Leukocytes) 8.3 10*3/uL Normal 4.4-9.9 [facility] Comment on above: Performed By: #### 2 [id number] ####[facility] [address] [place] [address] Partial Thromboplastin Timeo n 05-10-2017 aPTT 28.4 s Normal 22.1-35.3 [facility] Comment on above: Result Comment: Luis allen note new Heparin Therapeutic range effective 02/14/17.Heparin Therapeutic Range: 71 - 97 sec Performed By: #### 3 [id number] ####[facility] [address] [place] [address] Prothrombin Timeon 7 INR Coag RelTime (PPP) 1.00 {INR} Normal 0.85-1.16 [facility] Comment on above: Result Comment: Coum vanesa Therapy:1.5 - 2.0 Low Intensity Therapy2.0 - 3.0 Moderate Intensity Therapy2.5 - 3.5 High (1) Intensity Therapy3.0 - 4.0 High (2) Intensity Therapy Performed By: #### 3 [id number] ####[facility] [address] [place] [address] Prothrombin time (PT) Coag time (PPP) 13.1 s Normal 11.3-14.5 [facility] are Comment on above: Performed By: #### 3 [id number] ####[facility] [address] [place] [address] Vital Signs Date Time Vital Sign Value Performing Clinician Coy sprague 04-28-2025 09:49-0400 Body height 160 cm Clyde Choi DO Work Phone: [facility] 04-28-2025 09:49-0400 Body mass index (BMI) [Ratio] 35.78 kg/m2 Clyde Choi DO Work Phone: [facility] 04-28-2025 09:49-0400 Body weight 91.63 kg Clyde Choi DO Work Phone: [facility] 04-17-2025 09:13-0400 Body height 165.1 cm Clyde Choi DO Work Phone: [facility] 04-17-2025 09:13-0400 Body mass index (BMI) [Ratio] 33.61 kg/m2 Clyde Choi DO Work Phone: [facility] 04-17-2025 09:13-0400 Body weight 91.63 kg Clyde Choi DO Work Phone: [facility] 04-17-2025 09:13-0400 Diastolic blood pressure 75 mm[Hg] Clyde Choi DO Work Phone: [facility] 04-17-2025 09:13-0400 Systolic blood pressure 115 mm[Hg] Clyde Choi DO Work Phone: [facility] 12-24-2024 14:38-0500 Body height 160 cm Edison Ardon MD Work Phone: [facility] 12-24-2024 14:38-0500 Body mass index (BMI) [Ratio] 33.3 kg/m2 Edison Ardon MD Work Phone: [facility] 12-24-2024 14:38-0500 Body temperature 98.2 [degF] Edison Ardon MD Work Phone: [facility] 12-24-2024 14:38-0500 Body weight 85.28 kg Edison Ardon MD Work Phone: [facility] 12-24-2024 14:38-0500 Diastolic blood pressure 79 mm[Hg] Edison Ardon MD Work Phone: [facility] 12-24-2024 14:38-0500 Heart rate 89 /min Edison Ardon MD Work Phone: [facility] 12-24-2024 14:38-0500 Respiratory rate 14 /min Edison Ardon MD Work Phone: [facility] 12-24-2024 14:38-0500 SaO2% (BldA) [Mass fraction] 98 % Edison Ardon MD Work Phone: [facility] 12-24-2024 14:38-0500 Systolic blood pressure 117 mm[Hg] Edison Ardon MD Work Phone: [facility] 11-24-2024 13:51-0500 Body mass index (BMI) [Ratio] 34.72 kg/m2 Edison Ardon MD Work Phone: [facility] 11-24-2024 13:51-0500 Body weight 88.91 kg Edison Ardon MD Work Phone: [facility] Encounters Encounter Date Encounter Type Care Provider Facility Start: 04-28-2025 End: 04-28-2025 ambulatory CLYDE CHOI Not Available Start: 04-28-2025 End: 04-28-2025 Postop follow up visit related to original px Clyde Choi DO Work Phone: [facility] Comment on above: Other acute appendic itis (Primary Dx) Start: 04-17-2025 End: 04-17-2025 Postop follow up visit related to original px Clyde Choi DO Work Phone: [facility] Comment on above: Other acute appendic itis (Primary Dx) Start: 04-17-2025 End: 04-17-2025 ambulatory CLYDE CHOI Not Available Start: 04-12-2025 End: 04-20-2025 External Result Encounter Clyde Choi DO Work Phone: [facility] Unsolicited Start: 04-12-2025 End: 04-20-2025 External Result Encounter Clyde Choi DO Work Phone: [facility] Unsolicited Start: 04-11-2025 End: 04-14-2025 External Result Encounter Clyde Choi DO Work Phone: [facility] Unsolicited Start: 04-11-2025 End: 04-14-2025 External Result Encounter Clyde Choi DO Work Phone: [facility] Unsolicited Start: 04-11-2025 End: 04-12-2025 Evaluation and management of inpatient Cabrera Jones Facility:[facility] Start: 12-24-2024 End: 12-24-2024 Patient encounter procedure Edison Ardon MD Work Phone: [facility] Comment on above: Diaphragmatic hernia without obstruction and without gangrene (Primary Dx) Start: 12-24-2024 End: 12-24-2024 ambulatory EDISON ARDON Facility:[facility] Start: 12-24-2024 End: 12-24-2024 Subsequent hospital visit by physician [facility] (I-Stat) Radiology Comment on above: Diaphragmatic hernia without obstruction and without gangrene [K44.9] Start: 11-24-2024 End: 11-24-2024 Telephone encounter Edison Ardon MD Work Phone: [facility] Comment on above: Appointment Consult; Appointment Confirmation Request Outside [facility] Records; Received Outside Medical Records Start: 05-12-2022 End: 05-12-[address] CABRERA JONES Facility:[facility] Start: 09-20-2021 End: 09-20-[address] CABRERA JONES Facility:[facility] Start: 09-15-2021 End: 09-16-[address] CABRERA JONES Facility:[facility] Start: 09-02-2021 End: 09-03-[address] CABRERA JONES Facility:[facility] Start: 08-24-2021 End: 08-24-[address] MARCIAL BOB Facility:[facility] Start: 05-16-2017 End: 05-16-2017 Ambulatory Tito VALLE Facility:[facility] Start: 05-10-2017 Ambulatory Tito VALLE Facility:[facility] Start: 05-09-2017 Ambulatory Tito VALLE [facility] Procedures Date Procedure Procedure Detail Performing Clinician Start: 04-12-2025 Complete blood count with white cell differential, automated Clyde Choi DO Work Phone: Start: 04-11-2025 GLUCOSE POCT GLUCOMETERS Clyde Choi DO Work Phone: Start: 12-24-2024 Radiologic exam esop hagus single contrast study Edison Ardon MD Work Phone: Plan of Treatment Date Care Activity Detail Author Start: 04-28-2025 End: 04-28-2025 Patient encounter procedure 04/28/2025 9:30 AM EDT Office Visit [facility] [address] [place] [address] Clyde Choi, DO [address] [place] [address] [facility] Start: 04-17-2025 End: 04-17-2025 Patient encounter procedure 04/17/2025 9:15 AM EDT Office Visit [facility] [address] [place] [address] Clyde Choi, DO [address] [place] [address] [facility] Start: 12-24-2024 End: 12-24-2024 Patient encounter procedure Radiology Comment on above: Hiatal Hernia Start: 06-29-2024 Covid-19 Vaccine ( season) Covid-19 Vaccine ( season) [facility] Start: 06-29-2024 Covid-19 Vaccine ( season) Covid-19 Vaccine ( season) [facility] Start: 06-29-2024 Influenza vaccination Influenza Vacc ine (#1) [facility] Start: 2023 Pneumococcal Vaccine : 50+ (1 of 1 - PCV) Pneumococcal Vaccine: 50+ (1 of 1 - PCV) [facility] Start: 2023 Screening for malign ant neoplasm of lung Lung Cancer Screening [facility] Start: 2023 Shingrix Vaccine (1 of 2) Shingrix Vaccine (1 of 2) [facility] Start: 2018 Diabetes Screening Diabetes Screenin g [facility] Start: 2018 Lipid panel Lipid Screening [facility] Start: 2018 Screening for malign ant neoplasm of colon [facility] Start: 2013 Screening for malign ant neoplasm of breast Mammogram Screening [facility] Start: 1994 Screening for malign ant neoplasm of cervix Cervical Cancer Screening [facility] Start: 1992 Hepatitis B Vaccine (1 of 3 - 19+ 3-dose series) Hepatitis B Vaccine (1 of 3 - 19+ 3-dose series) [facility] Start: 1992 Urine microalbumin profile DTaP,Tdap,Td Vaccine (1 - Tdap) [facility] Start: 1991 Anxiety Screening Anxiety Screening [facility] Start: 1991 Depression Screening Depression Scre ening [facility] Start: 1991 Hepatitis C screening Hepatitis C Sc reening [facility] Start: 1991 HIV [facility] End: 12-24-2025 XR Esophagus Views W contrast PO XR ESOPHAGRAM Radiology Routine Diaphragmatic hernia without obstruction and without gangrene 1 Occurrences starting 11/24/2024 until 12/24/2025 [facility] Work Phone: Comment on above: 1 Occurrences starti ng 11/24/2024 until 12/24/2025 Immunizations Immunization Date Immunization Notes Care Provider Emmanuel mullen 06-28-2020 influenza virus vacc ine, unspecified formulation Gi (I-Stat) [facility] Payers Date Payer Category Payer Self-pay 2018 Medicaid [id number] 2018 Medicare (Managed Care) 1.2. [id number] 2018 Unknown [facility] [employer] O [id number] 2018-Present [phone] [address] [place] [address] HMO [id number] 1973 Unknown [id number] 93 1973 Unknown [id number] 93 1973 Unknown [id number] 93 1973 Unknown [id number] 93 1973 Unknown [id number] 93 1973 Unknown [id number] 1973 Unknown [id number] 1959 Medicaid [id number] 1959 Unknown [id number] Medicare [id number] Unknown [id number] 31 Social History Date Type Detail Facility Start: 11-24-2024 Tobacco smoking stat [facility] Ex-smoker [facility] Start: 05-06-2001 End: 05-06-2019 History of tobacco use Current smoker [facility] Start: 05-06-2001 End: 05-06-2019 History of tobacco use Cigarette Smoker [facility] Start: 11-24-2024 End: 04-28-2025 Cigarettes smoked current (pack per day) - Reported 1.5 [facility] Start: 11-24-2024 Tobacco use and exposure Smoke less tobacco non-user [facility] Start: 11-24-2024 End: 12-24-2024 Alcoholic beverage intake [facility] Start: 11-24-2024 End: 04-28-2025 Tobacco use panel [facility] National Score (1-10 0), lower number is lower risk Not on file [facility] Start: 11-24-2024 Tobacco Comment using E cig [facility] Start: 1975 Sex assigned at Not on file [facility] Start: 04-17-2025 Tobacco smoking stat [facility] Never smoked tobacco [facility] Start: 04-17-2025 Tobacco use and exposure Swetha r smokeless tobacco user [facility] Start: 04-17-2025 End: 04-28-2025 Alcoholic beverage intake [facility] Start: 04-17-2025 Tobacco Comment vape [facility] Clinical Notes 03-01-2022 to 04-28-2025 Clyde Choi DO - 04/28/2025 9:30 AM EDTProberto Choi DO - 04/17/2025 9:15 AM Edison Hernandez MD - 01/03/2025 9:12 AM Heena Oreilly MD - 12/24/2024 2:45 PM EST Note Date & Type Note Facility 04-28-2025 History of Presen t illness Narrative Images from the original note were not included. Kiya Bhat 1975 Kiya Bhat is a 49 y.o. female presents for 3rd pow lap appy IP (Discuss colonoscopy) HPI: HPI Patient is not having any problems. She has not having any nausea or vomiting. She is eating without any difficulty. She is having regular bowel movements. She has not having any fevers chills or sweats. She is scheduled to start her new job on May 04 she was not allowed to have any restrictions for that. She wants to get her colonoscopy done, she would like to wait until she is past her 90 day Review At work. OBJECTIVE: Physical Exam Constitutional: Appearance: Normal appearance. She is not ill-appearing. Cardiovascular: Rate and Rhythm: Regular rhythm. Abdominal: General: There is no distension. Tenderness: There is no abdominal tenderness. Comments: Incisions are clean, dry and intact. No cellulitis or hernia ASSESSMENT AND PLAN: Assessment/Plan Diagnoses and all orders for this visit: Other acute appendicitis Status post laparoscopic appendectomy secondary to acute appendicitis. We discussed gradually increasing activity. She has no restriction for work on May 04 when she returns. She would like to schedule colonoscopy, she will contact me after her 90 day review. She understands that she is past the age of starting screening and that there is a slightly higher risk of colon cancer in people who get appendicitis older than age 40. No follow-ups on file. documented in this encounter [facility] 04-17-2025 History of Presen t illness Narrative Images from the original note were not included. Kiya Bhat 1975 Kiya Bhat is a 49 y.o. female presents for 1st pow lap appy IP HPI: HPI Patient is healing up well. She is not having any nausea or vomiting. She is eating without any difficulty. She has had bowel movements although since she has not taking a stool softener they have not been quite as regular. She was thinking about starting a stool softener. 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 She has not having any incision issues. She has no fevers chills or sweats. She has to be able to lift up to 50 lb at work and climb. They do not want to start her on light duty they would like to push her start date back to when she has no restrictions. OBJECTIVE: Physical Exam Constitutional: Appearance: Normal appearance. She is not ill-appearing. Cardiovascular: Rate and Rhythm: Regular rhythm. Abdominal: General: There is no distension. Tenderness: There is no abdominal tenderness. Comments: Incisions are clean, dry and intact. No cellulitis or hernia Media Information Document Information Other: Other PATH- Appendix PCL 04/15/2025 10:01 Attached To: GENERAL PATHOLOGY [[id number]] Orders Only on 04/15/25 with Clyde Choi DO Source Information Sonia Am[facility] Document History ASSESSMENT AND PLAN: Assessment/Plan Diagnoses and all orders for this visit: Other acute appendicitis Status post laparoscopic appendectomy for acute appendicitis. Pathology shows appendicitis, no perforation. No neoplasm. I discussed with her and her mother activity restriction, incision care, pathology and events surgery. Since she has to be able to do strenuous activity and climbing would recommend 4 weeks off from surgery to her start date. I will see her back in 3 weeks immediately before she is supposed to go back to work. Additionally patient said that she is due for colonoscopy. That can get arranged for for her later this year, needs to be at least 6 weeks after her appendectomy to avoid risk of blowing out staple line. No follow-ups on file. documented in this encounter [facility] 01-03-2025 Note HNO ID: [id number] Author: EDISON ARDON MD Service: ? Author Type: Physician Type: Progress Notes Filed: 01/03/2025 09:17 Note Text: I have read and reviewed the documentation and agree. I wish to add the followingI wish to add the following findings which will be communicated back to the requesting physician. Edison Ardon MD [facility] STAFF PHYSICIAN NOTE OF PERSONAL INVOLVEMENT [...] management of the patient's care. STAFF PHYSICIAN: Edison Ardon MD DATE OF SERVICE: Dec 24, 2024 TIME OF SERVICE: 330 PM [facility] 01-03-2025 History of Presen t illness Narrative I have read and reviewed the documentation and agree. I wish to add the followingI wish to add the following findings which will be communicated back to the requesting physician. Edison Ardon MD [facility] STAFF PHYSICIAN NOTE OF PERSONAL INVOLVEMENT [...] management of the patient's care. STAFF PHYSICIAN: Edison Ardon MD DATE OF SERVICE: Dec 24, 2024 TIME OF SERVICE: 330 PM Images from the original note were not included. [facility] THORACIC SURGERY OUTPATIENT CONSULT NOTE Kiya Bhat [id number] Requesting Provider: Self Thoracic Physician: Edison Ardon MD Chief Complaint: hiatal hernia Impression: [...] stress test, walking test, and PFTs SIGNATURE: Heena Manjarrez MD DATE of SERVICE: 12/24/2024 TIME [...] DATA: Radiology: Patient is being referred to Edison Ardon by Self for Hiatal Hernia Pathology: Procedures: Imaging Cardiopulmonary Testing PFT's/Six: Cardiac: Office Notes/Consults 11/12/24 pcp nathany 10/08/2019 JULIAN Flowers: pt with type III PEH and morbid obesity (BMI of 44.3). I have once again reiterated her 3 choices and given her increasing BMI she will f/u with Dr. Romero for a REYGB. P: RTC prn. I have personally reviewed the following images/data: CT scan and Esophagram Outside Paper Medical Records Review personally performed by: Duglas Manjarrez Patient-Entered Questionnaire [facility] Esophageal Questionnaire 12/23/2024 Domain Symptom Raw [...] 6-30) Incomplete Incomplete documented in this encounter [facility] 12-24-2024 Note HNO ID: [id number] Author: HEENA MANJARREZ MD Service: ? Author Type: Fellow Type: Progress Notes Filed: 01/03/2025 09:17 Note Text: [facility] THORACIC SURGERY OUTPATIENT CONSULT NOTE Kiya Bhat [id number] Requesting Provider: Self Thoracic Physician: Edison Ardon MD Chief Complaint: hiatal hernia Impression: [...] stress test, walking test, and PFTs SIGNATURE: Heena Manjarrez MD DATE of SERVICE: 12/24/2024 TIME [...] DATA: Radiology: Patient is being referred to Edison Ardon by Self for Hiatal Hernia Pathology: Procedures: Imaging Cardiopulmonary Testing PFT's/Six: Cardiac: Office Notes/Consults 11/12/24 pcp hoy 10/08/2019 JULIAN ARDON A: pt with type III PEH and morbid obesity (BMI of 44.3). I have once again reiterated her 3 choices and given her increasing BMI she will f/u with Dr. Romero for a REYGB. P: RTC prn. I have personally reviewed the following images/data: CT scan and Esophagram Outside Paper Medical Records Review personally performed by: Duglas Manjarrez Patient-Entered Questionnaire [facility] Esophageal Questionnaire 12/23/2024 Domain Symptom Raw [...] (Range 6-36) Incomplete (Range 6-30) Incomplete Incomplete [facility] 12-24-2024 History of Presen t illness [...] PATIENT PRESENTS WITH AN IMPLANTABLE OR ATTACHED CASE SEALER: No RADIOLOGY DEPARTMENT: General X-ray: Exam(s) Completed: GI/ Procedure(s): Esophogram with barium contrast PERIPHERAL IV DATA: Not applicable SIGNED BY: RT Wil(R) December 24, 2024 1:50 PM documented in this encounter [facility] 12-24-2024 Note HNO ID: [id number] Author: SONIA BENNETT RT(Sybil) Service: Radiology Author [...] PATIENT PRESENTS WITH AN IMPLANTABLE OR ATTACHED CASE SEALER: No RADIOLOGY DEPARTMENT: General X-ray: Exam(s) Completed: GI/ Procedure(s): Esophogram with barium contrast PERIPHERAL IV DATA: Not applicable SIGNED BY: RT Wil(R) December 24, 2024 1:50 PM [facility] 11-24-2024 Telephone encounter Note Patient confirmed appointment scheduled with Dr. Ardon with barium on 12/24/24 [facility] Work Phone: 11-24-2024 Miscellaneous Notes Patient confirmed appointment scheduled with Dr. Ardon with barium on 12/24/24 Images from the original note were not included. Thoracic Surgery Consultation - review of records for appointment scheduling Patient is being referred to Edison Ardon by Self for Hiatal Hernia Pathology: Procedures: Imaging Cardiopulmonary Testing PFT's/Six: Cardiac: Office Notes/Consults 11/12/24 pcp fazal 10/08/2019 JULIAN Flowers: pt with type III PEH and morbid [...] esophagram Jenni Mg, RN LOCAL PATIENT Received [facility] Staff Message from Gill Brar is former pt of Edison Ardon M.D., Ph.D. by SELF Patient last seen in 2019 Patient diagnosis/Reason for consult: Diaphragmatic hernia triage process explained: Yes Patient will receive a call from Thoracic NPM after triage review with surgeon to discuss any additional testing and/or consults that will be scheduled. Pt will then receive a call from our scheduling office for scheduling. Please call pt at [phone]. Patient was informed consultation could be at [place] or [facility] [place]: No Patient Registration: Registration complete/updated: yes Insurance card(s) scanned in [employer] with in the past year: No Pt's [employer] is active. Ok to communicate to pt via [employer] yes Medical Records: Records in [facility] (internal CC records): Yes (old) Imaging in [facility] (internal CC records): Yes (old) Care [...] triage Renae Elliott documented in this encounter [facility] 11-24-2024 Telephone encounter Note Received outside [facility]sc[facility] Renae Chaudhry Historical Records Administrator [facility] Work Phone (unformatted): [phone] 11-24-2024 Miscellaneous Notes Received outside office note (scanned[facility]. Renae Chaudhry Historical Records Administrator Attempt #1 Requested Medical Records from the office of Dr. Cabrera Jones Spoke to: Jacki Phone #: [phone] Fax #: [phone] Jacki agreed to fax the last office note Renae Elliott November 24, 2024 2:12 PM documented in this encounter [facility] 11-24-2024 Telephone encounter Note Attempt #1 Requested Medical Records from the office of Dr. Cabrera Jones Spoke to: Jacki Phone #: [phone] Fax #: [phone] Jacki agreed to fax the last office note Renae Elliott November 24, 2024 2:12 PM [facility] 11-24-2024 Telephone encounter Note Images from the original note were not included. Thoracic Surgery Consultation - review of records for appointment scheduling Patient is being referred to Edison Ardon by Self for Hiatal Hernia Pathology: [...] lost weight with diet exercise) esophagram Jenni Bartunek, RN [facility] 11-24-2024 Telephone encounter Note LOCAL PATIENT Received [facility] Staff Message from Gill Brarrhett Bhat is former pt of Edison Ardon M.D., Ph.D. by SELF Patient last seen in 2019 Patient diagnosis/Reason for consult: Diaphragmatic hernia triage process explained: Yes Patient will receive a call from Thoracic NPM after triage review with surgeon to discuss any additional testing and/or consults that will be scheduled. Pt will then receive a call from our scheduling office for scheduling. Please call pt at [phone]. Patient was informed consultation could be at [place] or [facility]: No Patient Registration: Registration complete/updated: yes Insurance card(s) [facility] with in the past year: No Pt's [employer] is active. Ok to communicate to pt via [employer] yes Medical Records: Records in [facility] (internal CC records): Yes (old) Imaging in [facility] (internal CC records): Yes (old) Care [...] Yes, Thoracic NPM for triage Renae Elliott [facility] Work Phone (unformatted): [phone] 11-24-2024 Telephone encounter Note .RECEIVED CALL FROM: Patient PATIENT INFORMATION: Name: Kiya Bhat : 1975 (home) [phone] (cell) Email: [email or web address] Referring Provider: No referring provider defined for this encounter. Phone: N/A Fax: Requested Surgeon: Edison Ardon M.D., Ph.D. Reason for appointment/diagnosis: Diaphragmatic hernia without obstruction and without gangrene Gill Brar November 24, 2024 11:32 AM [facility] 11-24-2024 Miscellaneous Notes .RECEIVED CALL FROM: Patient PATIENT INFORMATION: Name: Kiya Bhat : 1975 (home) [phone] (cell) Email: [email or web address] Referring Provider: No referring provider defined for this encounter. Phone: N/A Fax: Requested Surgeon: Edison Ardon M.D., Ph.D. Reason for appointment/diagnosis: Diaphragmatic hernia without obstruction and without gangrene Gill Brar November 24, 2024 11:32 AM documented in this encounter [facility] 03-01-2022 Note Chief Complaint consultation for [...] 2: Mother and Brother. Heart disease: Mother. [facility] Comment on above: Result Comment: Elec tronically Signed By: FRANK GALLO, Hemal Moore\Date and Time Signed: 03/01/22 16:21 EDT Evaluation note Diagnosis Diaphragmatic hernia without obstruction and without gangrene- Primary [facility] Diagnosis Diaphragmatic hernia without obstruction and without gangrene [facility] Diagnosis Diaphragmatic hernia without obstruction and without gangrene- Primary [facility] Diagnosis Other acute appendicitis- Primary documented in this encounter [facility]* Diagnosis Other acute appendicitis- [facility] Diagnostic Procedure Only (Routine) - Authorized Specialty Diagnoses / Procedures Referred By Contac t Referred To Contact XR IMAGING Diagnoses Diaphragmatic hernia without obstruction and without gangrene Procedures XR ESOPHAGRAM RADIOLOGIC EXAM ESOPHAGUS SINGLE CONTRAST STUDY Edison Ardon MD [address] [place] [address] [place] [address] Referral ID Status Reason Start Date Expiration Date Visits Requested Visits Authorized [id number] Authorized Auto-Generat ed Referral 11/24/2024 12/24/2025 1 1 [facility] Summary Purpose Family History No Family [...] section and content) DATE CREATED AUTHOR 04/24/2018 [facility] DATE CREATED AUTHOR AUTHOR'S ORGANIZ ATION 03/03/2022 [facility] DATE CREATED AUTHOR AUTHOR'S ORGANIZ ATION 05/18/2022 [facility] DATE CREATED AUTHOR AUTHOR'S ORGANIZ ATION 01/05/2025 [facility] DATE CREATED AUTHOR AUTHOR'S ORGANIZ ATION 04/16/2025 [facility] DATE CREATED AUTHOR AUTHOR'S ORGANIZ ATION 04/29/2025 [facility] EPIC Source Comments (unrecognize d section and content) In the event this informatio n is protected by the Federal Confidentiality of Alcohol and Drug Abuse Patient Records regulations: The Federal rules restrict any use of the information to criminally investigate or prosecute any alcohol or drug abuse patient.[facility] the event this information is protected by the Federal Confidentiality of Alcohol and Drug Abuse Patient Records regulations: The Federal rules restrict any use of the information to criminally investigate or prosecute any alcohol or drug abuse patient.[facility] the event this information is protected by the Federal Confidentiality of Alcohol and Drug Abuse Patient Records regulations: The Federal rules restrict any use of the information to criminally investigate or prosecute any alcohol or drug abuse patient.[facility] the event this information is protected by the Federal Confidentiality of Alcohol and Drug Abuse Patient Records regulations: The Federal rules restrict any use of the information to criminally investigate or prosecute any alcohol or drug abuse patient.[facility] the event this information is protected by the Federal Confidentiality of Alcohol and Drug Abuse Patient Records regulations: The Federal rules restrict any use of the information to criminally investigate or prosecute any alcohol or drug abuse patient.[facility] Reason for Visit (unrecogniz ed section and content) Reason Comments Appointment Reason Comments Consult Appointment Confirmation Reason Comments Request Outside Medical Records Received Outside Medical Records Reason Comments Radio GI Main HB6 Specialty Diagnoses / Procedures Referred By Chandler berkowitz Referred To Contact XR IMAGING Diagnoses Diaphragmatic hernia without obstruction and without gangrene Procedures XR ESOPHAGRAM RADIOLOGIC EXAM ESOPHAGUS SINGLE CONTRAST STUDY Edison Ardon MD [address] [place] [address] Phone: tel: [place] [address] Referral ID Status Reason Start Date Expiration Date V isits Requested Visits Authorized [id number] Closed Auto-Generate d Referral 11/24/2024 12/24/2025 1 1 Reason Comments Consult Reason Comments 1st pow lap appy IP Reason Comments 3rd pow lap appy IP Discuss colonoscopy Care Teams (unrecognized sec tion and content) Manager Floor Relationship Specialty Start Date End Date Cabrera Jones MD [address] [place] [address] PCP - General Family Medicine 11/24/24 Junior Araya Jr., MD [facility] [address] [place] [address] Referring 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/19 Manager Floor Relationship Specialty Start Date End Date Cabrera Jones MD [address] [place] [address] PCP - General Family Medicine 11/24/24 Junior Araya Jr., MD [facility] [address] [place] [address] Referring 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/19 Manager Floor Relationship Specialty Start Date End Date Cabrera Jones MD [address] [place] [address] PCP - General Family Medicine 11/24/24 Junior Araya Jr., MD [facility] [employer] [facility] [place] [address] Referring 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/19 Manager Floor Relationship Specialty Start Date End Date Cabrera Jones MD [address] [place] [address] PCP - General Family Medicine 11/24/24 Junior Araya Jr., MD [facility] [address] [place] [address] Referring 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/19 Manager Floor Relationship Specialty Start Date End Date Cabrera Jones MD [address] [place] [address] PCP - General Family Medicine 11/24/24 Junior Araya Jr., MD [facility] [employer] [facility] [place] [address] Referring 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/19 Manager Floor Relationship Specialty Start Date End Date Cabrera Jones MD [address] [place] [address] PCP - General Family Medicine 04/14/25 Manager Floor Relationship Specialty Start Date End Date Cabrera Jones MD [address] [place] [address] PCP - General Family Medicine 04/14/25 Manager Floor Relationship Specialty Start Date End Date Cabrera Jones MD [address] [place] [address] PCP - General Family Medicine 04/14/25 FOR RECORDS PERTAINING TO PATIENTS WHO ARE [...] BE BASED ON THE PRIMARY CLINICAL RECORDS. [facility] [employer] [facility]. provides no warranty or guarantee of the accuracy or completeness of information in this document.
[2025-06-12 12:32] LABS: Glucose Urine UA NEGATIVE (NEGATIVE)
[2025-06-12 13:22] LABS: Cast Seen? NONE SEEN #/LPF (NONE SEEN); Crystals Seen? None Seen #/HPF (None Seen)
== END 2025-06-12 09:21 | disposition home or self-care (01) ==
LOC: LAB 09:23
PROVIDERS: PCP Family Medicine; Visit Provider Family Medicine
DX: N39.0 Urinary tract infection, site not specified (principal)
CPT/HCPCS: 81001; 87086; 87088; 87186

== ENCOUNTER 2025-07-01 10:12 | Outpatient (OUT) | payer MEDICARE, MEDICAID, SELFPAY ==
--- OUTSIDE RECORDS SUMMARY | 2025-07-01 10:17 | XMS_ITS | Encounter Summary ---
Author Organization [facility] Address [address] [place] [address] Care Team Providers Care Serging Machine Operator Automatic Name Role Phone Lance Jones MD Primary Care Provider [phone] Encounter Details Date Type Department Care Team (Late st Contact Info) Description 04/15/2025 Orders Only [facility] [address] [facility] [address] [place] [id number] Clyde Jauregui DO [address] [facility] [address] [place] [address] Social History Tobacco Use Types Packs/Day Years Used Date Smoking Tobacco: Never Assessed Comments Unknown Sex and Gender Information Value Date Recorded Sex Assigned at Not on file Legal Sex Female 9:03 AM EDT Gender Identity Not on file Sexual Orientation Not on file documented as of this encounter Plan of Treatment Not on file documented as of this encounter Procedures Procedure Name Priority Date/Time Associated Diagnosis Comments GENERAL PATHOLOGY Routine 04/15/2025 10:01 AM EDT documented in this encounter Results * GENERAL PATHOLOGY (04/15/2025 10:01 AM EDT) Clyde LEROY Final Result documented in this encounter Visit Diagnoses Not on filedocumented in this encounter Care Teams Serging Machine Operator Automatic Relationship Specialty Start Date End Date Lance Jones MD [address] [facility] [place] [address] PCP - General Family Medicine 04/14/25 documented as of this encounter
--- OUTSIDE RECORDS SUMMARY | 2025-07-01 10:17 | XMS_ITS | Clinical Summary ---
Author Organization [facility] Address [address] [place] [address] Phone Care Team Providers Care Community Service Worker Name Role Phone Unavailable Primary Care Provider Unavailabl e Social History Tobacco Use Types Packs/Day Years Used Date Smoking Tobacco: Never Assessed Comments Unknown Sex and Gender Information Value Date Recorded Sex Assigned at Not on file Legal Sex Female 4:24 PM EST Gender Identity Not on file Sexual Orientation Not on file Plan of Treatment Not on file
--- OUTSIDE RECORDS SUMMARY | 2025-07-01 10:17 | XMS_ITS | Clinical Summary ---
Author Organization [facility] Address [address] [place] [address] Care Team Providers Care Workers' Compensation Claims Supervisor Name Role Phone Lance Jones MD Primary Care Provider [phone] Allergies No known active allergies Medications pantoprazole (ProtoNix) 40 MG EC tablet Take 1 tablet by mouth 11/05/2024 Active terbinafine (LamISIL) 250 MG tablet Take 250 mg by mouth Daily Active hydrOXYzine HCl (Atarax) 25 MG tablet Take by mouth Active albuterol HFA 90 mcg/act inhaler Inhale 2 puffs every 4 (four) hours if needed for wheezing Active ferrous sulfate 325 (65 Fe) MG tablet Take 325 mg by mouth in the morning. Take with meals. Active meloxicam (Mobic) 15 MG tablet Take by mouth Active Breo Ellipta 100-25 MCG/ACT aerosol powder INHALE 1 PUFF ONCE DAILY FOR 30 DAYS 05/20/2024 Active traMADol (Ultram) 50 MG tablet Take 50 mg by mouth every 6 (six) hours if needed 04/13/2025 Active Active Problems Problem Noted Date Diagnosed Date Appendicitis, acute 04/17/2025 Encounters Date Type Department Care Team Description 04/28/2025 9:30 AM EDT Office Visit [facility] [address] [place] [phone] Clyde Jauregui DO Other acute appendicitis (Primary Dx) 04/28/2025 Travel 04/17/2025 9:15 AM EDT Office Visit [facility] [address] [place] [phone] Clyde Jauregui DO Other acute appendicitis (Primary Dx) 04/17/2025 Telephone [facility] [address] [facility] [address] [place] [address] Clyde Jauregui, DO 04/17/2025 Travel 04/15/2025 Orders Only [facility] [address] [place] [phone] Clyde Jauregui, DO 04/14/2025 Travel 04/13/2025 Travel 04/12/2025 External Result Encounter [facility] Unsolicited Clyde Jauregui, 04/11/2025 External Result Encounter [facility] Unsolicited Clyde Jauregui DO from Last 3 Months Family History Relation Name Status Comments Father Unknown Mother Alive Social History Tobacco Use Types Packs/Day Years Used Date Smoking Tobacco: Never Smokeless Tobacco: Former Tobacco Cessation:Counseling Given: Not Answered Comments:vape Alcohol Use Standard Drinks/Week Comments Defer 0 (1 standard drink = 0.6 oz pur e alcohol) Comments Unknown Sex and Gender Information Value Date Recorded Sex Assigned at Not on file Legal Sex Female 9:03 AM EDT Gender Identity Not on file Sexual Orientation Not on file Last Filed Vital Signs Vital Sign Reading Time Taken Comments Blood Pressure 115/75 04/17/2025 9:13 AM EDT Pulse - - Temperature - - Respiratory Rate - - Oxygen Saturation - - Inhaled Oxygen Concentration - - Weight 91.6 kg (202 lb) 04/28/2025 9:49 AM EDT Height 160 cm (5' 3 ) 04/28/2025 9:49 AM EDT Body Mass Index 35.78 04/28/2025 9:49 AM EDT Plan of Treatment Not on file Procedures Procedure Name Priority Date/Time Associated Diagnosis Comments GENERAL PATHOLOGY Routine 04/15/2025 10: 01 AM EDT CBC WITH AUTO DIFFERENTIAL Routine 04/12/2025 4:21 AM EDT GLUCOSE POCT GLUCOMETERS Routine 04/11/2025 2:19 PM EDT from Last 3 Months Results * GENERAL PATHOLOGY (04/15/2025 10:01 AM EDT) Clyde Sen Charanjitdougbharat DO [facility] Final Result * (ABNORMAL) CBC auto differential (04/12/2025 4:21 AM EDT) WBC 10.9 3.8 - 11.6 10*3/uL 04/12/2025 4:43 AM EDT [facility] UNCORRECTED WHITE BLOOD COUNT 10.9 3.8 - 11.6 10*3/uL 04/12/2025 4:43 AM EDT [facility] RBC 4.17 3.60 - 5.00 10*6/uL 04/12/2025 4:43 AM EDT [facility] HEMOGLOBIN 12.6 11.8 - 15.4 g/dL 04/12/2025 4:43 AM EDT [facility] HEMATOCRIT 37.1 34.0 - 46.4 % 04/12/2025 4:43 AM EDT [facility] MCV 89.0 80 - 100 fL 04/12/2025 4:43 AM EDT [facility] MCH 30.3 24.7 - 34.3 pg 04/12/2025 4:43 AM EDT [facility] MCHC 34.0 32.0 - 35.0 g/dL 04/12/2025 4:43 AM EDT [facility] RED CELL DISTRIBUTION WIDTH, RDW 12.8 11.9 - 15.3 % 04/12/2025 4:43 AM EDT [facility] PLATELET COUNT 148(L) 150 - 450 10*3/uL 04/12/2025 4:43 AM EDT [facility] MEAN PLATELET VOLUME, MPV 9.9 6.3 - 10.7 fL 04/12/2025 4:43 AM EDT [facility] NEUTROPHILS, % 78.7 . % 04/12/2025 4:43 AM EDT [facility] LYMPHOCYTES, % 15.3 . % 04/12/2025 4:43 AM EDT [facility] MONOCYTE/MACROPHA GE, % 5.1 . % 04/12/2025 4:43 AM EDT [facility] EOSINOPHILS, % 0.6 . % 04/12/2025 4:43 AM EDT [facility] BASOPHILS, % 0.3 . % 04/12/2025 4:43 AM EDT [facility] NRBC 0.1 0 - 0.5 /100{WBC} 04/12/2025 4:43 AM EDT [facility] NEUTROPHILS 8.6(H) 1.8 - 7.7 10*3/uL 04/12/2025 4:43 AM EDT [facility] LYMPHOCYTES 1.7 1.00 - 4.8 10*3/uL 04/12/2025 4:43 AM EDT [facility] MONOCYTES 0.6 0.0 - 0.8 10*3/uL 04/12/2025 4:43 AM EDT [facility] EOSINOPHILS 0.1 0.0 - 0.45 10*3/uL 04/12/2025 4:43 AM EDT [facility] BASOPHILS 0.0 0.0 - 0.2 10*3/uL 04/12/2025 4:43 AM EDT [facility] Blood (Blood) 04/12/2025 4:2 1 AM EDT 04/12/2025 4:32 AM EDT us Clyde Jauregui DO LAB BLOOD ORDERABLES Final Resu lt Performing Organization Address City/State/[facility] Co de Phone Number [facility] [address] [place] [address], [facility] [address] [place] [address] * GLUCOSE POCT GLUCOMETERS (04/11/2025 2:19 PM EDT) [facility] GLUCOSE POC GLUCOMETERS 109 mg/dL 04/14/2025 10:17 AM EDT [facility] Comment: Random Glucose Reference Range is dependent on time and content of last meal. Glucose of more than 200 mg/dL in a nonstressed, ambulatory subject supports the diagnosis of Diabetes Mellitus. Blood (Blood) 04/11/2025 2:1 9 PM EDT 04/14/2025 10:16 AM EDT us Clyde C Laffay DO LAB BLOOD ORDERABLES Final Resu lt [facility] [address] [place] [address], from Last 3 Months Insurance [employer] Care Teams Workers' Compensation Claims Supervisor Relationship Specialty Start Date End Date Lance Jones MD [address] [place] [phone] PCP - General Family Medicine 04/14/25
--- OUTSIDE RECORDS SUMMARY | 2025-07-01 10:17 | XMS_ITS | Clinical Summary ---
Author Organization [facility] Address [address] [place] [id number] Care Team Providers Care Fire Alarm Inspector Name Role Phone Marshal Faria MD, Junior Francis Unavailable [phone] Lance Jones MD Primary Care Provider [phone] Allergies No known active allergies Medications * [...] is lower risk 7 12/24/2024 Data from: https://[email or web address].medicine.[email or web address] [email or web address]/. Last address used for calculation [address] [facility] 12/24/2024 Comments No Sex and Gender [...] 2023 Shingrix Vaccine (1 of 2) 2023 Medicare Advantage Annual Wellness Visit 10/29/2024 Influenza Vaccine (#1) 2025 06/28/2020, 2019 Insurance [employer] Care Teams Fire Alarm Inspector Relationship Specialty Start Date End Date Lance Jones MD [address] [place] [address] PCP - General Family Medicine 11/24/24 Junior Araya Jr., MD [address] [place] [address] [place] [address] Referring 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/19
[2025-07-01 11:13] LABS: Glucose Urine UA NEGATIVE (NEGATIVE)
[2025-07-01 12:27] LABS: Crystals Seen? Seen #/HPF (None Seen); Urine Culture Indicated ALREADY ORDERED
[2025-07-01 12:43] LABS: Cast Seen? NONE SEEN #/LPF (NONE SEEN)
--- OUTSIDE RECORDS SUMMARY | 2025-07-01 12:46 | XMS_ITS | CCD ---
Author Organization [facility] CliniSysd Care Team Providers Care Insulation Cutter Name Role Phone VALLE, M L Unavailable Unavailable VALLE, M L Unavailable Unavailable HOY, CABRERA M Unavailable Unavailable VALLE, M L Unavailable Unavailable VALLE, M L Unavailable Unavailable HOY, CABRERA M Unavailable Unavailable VALLE, M L Unavailable Unavailable HOYPIPECABRERA M Unavailable Unavailable FAZAL, DR REES Primary Care Unavailable HOY, DR REES Admitting Unavailable HOY, DR REES Attending Unavailable NATHANY, DR REES Consulting Unavailable PAULINO, DR MARCIAL Devine Consulting Unavailable KRYSTAL, DR DONA Joseph Admitting Unavailabl e FAZAL, DR REES Primary Care Unavailable KRYSTAL, DR DONA Joseph Attending Unavailabl e LAURA, RUSSELL ESCOBAR Consulting Unavailable CONCHIS, NATY Consulting Unavailable FAZAL, DR REES Admitting Unavailable HOY, DR REES Attending Unavailable NATHANY, DR REES Consulting Unavailable NATHANY, DR REES Primary Care Unavailable HOY, DR REES Admitting Unavailable HOY, DR REES Attending Unavailable HOY, DR REES Consulting Unavailable FAZAL, DR REES Primary Care Unavailable MORGAN HILL, DR LOREE Zimmerman Consulting Unavailable FAZAL, DR REES Primary Care Unavailable NATHANY, DR REES Admitting Unavailable FAZAL, DR REES Attending Unavailable FAZAL, DR REES Consulting Unavailable Marshal Faria MD, Junior Francis Unavailable Cabrera Jones MD Primary Care Provider [phone] EDISON ARDON Referring Unavailable CABRERA JONES Primary Care Unavailable EDISON ARDON Attending Unavailable SELF Referring Unavailable CABRERA JONES Primary Care Unavailable Unavailable Primary Care Provider UnavailCabrera Caal MD Primary Care Provider [phone] CLYDE CHOI Attending Unavailable CLYDE CHOI Attending Unavailable Cabrera Jones MD Primary Care Provider [phone] Clyde Choi DO Admit Provider Clyde Choi DO Attending Provider Cabrera Jones MD Attending Provider Cabrera Jones Admitting Unavailable Cabrera Jones Attending Unavailable Cabrera Jones Primary Care Unavailable Clyde Choi Admitting Unavailable Clyde Choi Attending Unavailable Medications Current Medications Medication Drug Class(es) Dates Sig (Normalized) Sig (Original) [id number] 200 actuat albuterol 0.09 mg/actuat metered dose inhaler (5 sources) beta2-Adrenergic Agonist Start: 04-11-2025 take 2 puff(s) by in halation every four hours for wheezing albuterol HFA 90 mcg/act inhaler Inhale 2 puffs every 4 (four) hours if needed for wheezing Active calcium carbonate 1250 mg / cholecalciferol 200 unt oral tablet (5 sources) Vitamin D Start: 06-24-2019 take 1 tablet by mouth once daily zsebalv-cagyxhehx-motpkop D3 (CALCIUM 500+D) 500 mg(1,250mg) -200 unit [...] delayed release oral tablet (5 sources) Nonsteroidal Anti-inflammato ry Drug Start: 06-24-2019 take 1 tablet by mouth twice daily diclofenac, EC, (VOLTAREN) 75 mg EC tablet Take 1 tablet by mouth twice daily. 06/24/2019 Active ferrous sulfate 325 mg oral tablet (10 sources) Start: 04-11-2025 take 1 tablet by mouth once daily Start: 06-24-2019 take 1 tablet by reymundo twice daily ferrous sulfate 325 mg (65 mg iron) tablet Take 1 tablet by mouth twice daily. 06/24/2019 Active take 1 tablet by reymundo th at mealtime ferrous sulfate 325 (65 Fe) MG tablet [...] Active hydrOXYzine hydrochloride 25 mg oral tablet (5 sources) Antihistamine Start: 04-11-2025 take 1 tablet by mouth every eight hours as needed ibuprofen 200 mg oral capsule (5 sources) Nonsteroidal Anti-inflammatory Drug Start: 06-24-2019 Ibuprofen 200 mg cap Take 1-2 capsules by mouth as needed (for pain). 06/24/2019 Active meloxicam 15 mg oral tablet (5 sources) Nonsteroidal Anti-inflammatory Drug Start: 04-11-2025 take 1 tablet by mouth once daily multivitamin (MULTIPLE VITAMINS) tablet (5 sources) Start: [...] pantoprazole 40 mg delayed release oral tablet (6 sources) Proton Pump Inhibitor Start: 11-05-2024 take 1 tablet by mouth once daily terbinafine 250 mg oral tablet (5 sources) Allylamine Antifungal Start: 04-11-2025 take 1 tablet by mouth once daily traMADol hydrochloride 50 mg oral tablet (5 sources) Opioid Agonist Start: 04-12-2025 take 1 tablet by mouth every six hours as needed traMADol (Ultram) 50 MG tablet Take 50 mg by mouth every 6 (six) hours if needed 04/13/2025 Active Problems Active Problems Problem Classification Problem Date Documented Date Episodic/Chronic Abdominal hernia (5 sources) Diaphragmatic hernia; Translations: [Diaphragmatic hernia without obstruction or gangrene] Onset: 12-24-2024 11-24-2024 Episodic Abdominal pain (3 sources) Right lower quadrant pain; Translations: [Right lower quadrant pain] Onset: 04-11-2025 04-20-2025 Episodic Anxiety disorders (2 sources) Obsessive-compulsive disorder, unspecified; Translations: [Post-traumatic stress disorder, unspecified] Onset: 08-26-2021 Chronic Appendicitis and other appendiceal conditions (12 sources) Acute appendicitis; Translations: [Other acute appendicitis without perforation or gangrene] Onset: 04-11-2025 04-17-2025 Episodic Asthma (1 source) Asthma Onset: 05-16-2017 Diseases of white blood cells (3 sources) Leukocytosis; Translations: [Elevated white blood cell count, unspecified] Onset: 04-11-2025 04-20-2025 Chronic Disorders of lipid metabolism (4 sources) [...] [CONTACT W/AND (SUSP) EXPOS COVID-19] Onset: 08-26-2021 Unclassified (2 sources) Call office on Sunday morning to schedule appointment for Sunday04/17/25 Past or Other Problems Problem Classification Problem [...] 08-26-2021 Episodic Other aftercare (1 source) Other chcf (current) drug therapy; Translations: [OTH [facility] CURRENT DRUG THERAPY] Onset: 08-26-2021 Episodic Other [...] Test Name Value Interpretation Reference Range Facility Urine Cultureon 06-12-2025 Bacteria identified Cx Nom (U) ORGANISM: Escherichia coli (O:ESCCOL) [place] Count >100,000 Aerobic VAHE Charge (NMIC56) ---- SUSCEPTIBILITY --- ORGANISM: O:ESCCOL ANTIBIOTIC INTERPRETATION VAHE Amikacin S <16 Amoxacillin/K Clavulanate S <8 Ampicillin S <8 Ampicillin/Sulbactam S <4 Aztreonam S <4 Cefazolin S <2 Cefepime S <2 Ceftazidime S <1 Ceftazidime/Avibactam S <4 Ceftolozane/Tazobacta m S <2 Ceftriaxone S <1 Cefuroxime S <4 Ciprofloxacin S <0.25 Ertapenem S <0.5 Gentamicin S <2 Levofloxacin S <0.5 Meropenem S <1 Meropenem/Vaborbactam S <2 Nitrofurantoin S <32 Piperacillin/Tazobact am S <8 Tetracycline S <4 Tigecycline S <2 Tobramycin S <2 Trimethoprim/Sulfamet hoxazole S <0.5 S = SUSCEPTIBLE I = INTERMEDIATE R = RESISTANT BLANK = DATA NOT AVAILABLE, OR DRUG NOT ADVISABLE OR TESTED R* = RESISTANCE DUE TO EXTENDED SPECTRUM BETA-LACTAMASES ESBL = EXTENDED SPECTRUM BETA-LACTAMASE TFG = THYMIDINE-DEPENDENT STRAIN ALISHA = BETA-LACTAMASE POSITIVE IB = INDUCIBLE BETA-LACTAMASE. APPEARS IN PLACE OF 'S' WITH SPECIES KNOWN TO POSSESS INDUCIBLE BETA-LACTAMASES. POTENTIALLY THEY MAY BECOME RESISTANT TO ALL B-LACTAM DRUGS. PERFORMED BY: [place] [address] PATHOLOGIST MATERIAL HANDLING CREW SUPERVISOR ALISA GOMEZ M.D. Normal [facility] Comment on above: Performed By: #### C UU #### [address] GLUCOSE POCT GLUCOMETERSon 0 04-14-2025 Glucose [Mass/Vol] 109 mg/dL [facility] Comment on above: Random Glucose Refer ence Range is dependent on time and content of last meal. Glucose of more than 200 mg/dL in a nonstressed, ambulatory subject supports the diagnosis of Diabetes Mellitus. [facility] Basophils [#/volume] in Bloo d by Automated countOrdered By: Clyde Choi on 04-12-2025 Basophils (Bld) [#/Vol] 0.0 10*3/uL Normal 0.0-0.2 [facility] Comment on above: Result Comment: PERF ORMED BY: [facility] [address] [place] [address] PATHOLOGIST MATERIAL HANDLING CREW SUPERVISOR ALISA GOMEZ M.D. Performed By: #### C BC #### [facility] [address] Basophils/100 leukocytes in Blood by Automated countOrdered By: Clyde Choi on 04-12-2025 Basophils/100 WBC (Bld) 0.3 % Normal . [facility] Comment on above: Performed By: #### C BC #### [facility] [address] CBC W Auto Differential pane l (Bld)on 04-12-2025 Basophils (Bld) [#/Vol] 0 10*3/uL 0.0 - 0.2 10*3/uL [facility] Basophils/100 WBC Manual cnt (Syn fld) 0.3 % . [facility] Eosinophils (Bld) [#/Vol] 0.1 10*3/uL 0.0 - 0.45 10*3/uL [facility] Eosinophils/100 WBC Manual cnt (Syn fld) 0.6 % . [facility] Erythrocyte distribution width (RBC) [Ratio] 12.8 % 11.9 - 15.3 % [facility] Hematocrit (Bld) [Volume fraction] 37.1 % 34.0 - 46.4 % [facility] Hemoglobin (Bld) [Mass/Vol] 12.6 g/dL 11.8 - 15.4 g/dL [facility] Interpretation and review of laboratory results Abnormal [facility] Lymphocytes (Bld) [#/Vol] 1.7 10*3/uL 1.00 - 4.8 10*3/uL [facility] Lymphocytes/100 WBC Manual cnt (Syn fld) 15.3 % . [facility] MCH (RBC) [Entitic mass] 30.3 pg 24.7 - 34.3 pg [facility] MCHC (RBC) [Mass/Vol] 34 g/dL 32.0 - 35.0 g/dL [facility] MCV (RBC) [Entitic vol] 89 fL 80 - 100 fL [facility] Monocytes (Bld) [#/Vol] 0.6 10*3/uL 0.0 - 0.8 10*3/uL [facility] Monocytes+Macrophage s/100 WBC Manual cnt (Syn fld) 5.1 % . [facility] Neutrophils (Bld) [#/Vol] 8.6 10*3/uL High 1.8 - 7.7 10*3/uL [facility] Neutrophils/100 WBC Manual cnt (Syn fld) 78.7 % . [facility] NRBC 0.1 /100{WBC} 0 - 0.5 /100{WBC} [facility] Platelet mean volume (Bld) [Entitic vol] 9.9 fL 6.3 - 10.7 fL [facility] Platelets (Bld) [#/Vol] 148 10*3/uL Low 150 - 450 10*3/uL [facility] RBC LM.HPF (Urine sed) [#/Area] 4.17 10*6/uL 3.60 - 5.00 10*6/uL [facility] WBC (Bld) [#/Vol] 10.9 10*3/uL 3.8 - 11.6 10*3/uL [facility] WBC LM.HPF (Urine sed) [#/Area] 10.9 10*3/uL 3.8 - 11.6 10*3/uL [facility] Complete Blood Count Auto Di ffon 04-12-2025 Mean Corpuscular HGB Conc 34.0 g/dL Normal 32.0-35.0 [facility] Comment on above: Performed By: #### C BC #### [facility] [address] NRBC% 0.1 /100{WBC} Normal 0-0.5 [facility] Comment on above: Performed By: #### C BC #### [facility] [address] [place] [address] [place] Eosinophils [#/volume] in Bl ood by Automated countOrdered By: Clyde Choi on 04-12-2025 Eosinophils (Bld) [#/Vol] 0.1 10*3/uL Normal 0.0-0.45 [facility] Comment on above: Performed By: #### C BC #### [facility] [address] [place] [address] [place] Eosinophils/100 leukocytes i n Blood by Automated countOrdered By: Clyde Choi on 04-12-2025 Eosinophils/100 WBC (Bld) 0.6 % Normal . [facility] Comment on above: Performed By: #### C BC #### [facility] [address] Erythrocyte distribution wid th [Ratio] by Automated countOrdered By: Clyde Choi on 04-12-2025 Erythrocyte distribution width (RBC) [Ratio] 12.8 % Normal 11.9-15.3 [facility] Comment on above: Performed By: #### C BC #### [address] Erythrocytes [#/volume] in B lood by Automated countOrdered By: Clyde Choi on 04-12-2025 RBC (Bld) [#/Vol] 4.17 10*6/uL Normal 3.60-5.00 [facility] Comment on above: Performed By: #### C BC #### [address] Hematocrit [Volume Fraction] of Blood by Automated countOrdered By: Clyde Choi on 04-12-2025 Hematocrit (Bld) [Volume fraction] 37.1 % Normal 34.0-46.4 [facility] Comment on above: Performed By: #### C BC #### [address] Hemoglobin [Mass/volume] in BloodOrdered By: Clyde Choi on 04-12-2025 Hemoglobin (Bld) [Mass/Vol] 12.6 g/dL Normal 11.8-15.4 [facility] Comment on above: Performed By: #### C BC #### [facility] [address] [place] [address] Leukocytes [#/volume] correc mark for nucleated erythrocytes in Blood by Automated counOrdered By: Clyde Choi on 04-12-2025 WBC corrected for nucl RBC Auto (Bld) [#/Vol] 10.9 10*3/uL 3.8-11.6 [facility] Leukocytes [#/volume] in Blo od by Automated countOrdered By: Clyde Choi on 04-12-2025 WBC (Bld) [#/Vol] 10.9 10*3/uL Normal 3.8-11.6 [facility] Comment on above: Performed By: #### C BC #### [address] Lymphocytes [#/volume] in Bl ood by Automated countOrdered By: Clyde Choi on 04-12-2025 Lymphocytes (Bld) [#/Vol] 1.7 10*3/uL Normal 1.00-4.8 [facility] Comment on above: Performed By: #### C BC #### [place] [address] [place] Lymphocytes/100 leukocytes i n Blood by Automated countOrdered By: Clyde Choi on 04-12-2025 Lymphocytes/100 WBC (Bld) 15.3 % Normal . [facility] Comment on above: Performed By: #### C BC #### [place] [address] [place] MCH [Entitic mass] by Automa mark countOrdered By: Clyde Choi on 04-12-2025 MCH (RBC) [Entitic mass] 30.3 pg Normal 24.7-34.3 [facility] Comment on above: Performed By: #### C BC #### [address] MCHC Auto (RBC) [Mass/Vol]Or dered By: Clyde Choi on 04-12-2025 MCHC (RBC) [Mass/Vol] 34.0 g/dL 32.0-35.0 [facility] MCV [Entitic volume] by Auto mated countOrdered By: Clyde Choi on 04-12-2025 MCV (RBC) [Entitic vol] 89.0 fL Normal 80-100 [facility] Comment on above: Performed By: #### C BC #### [place] [address] [place] Monocytes [#/volume] in Bloo d by Automated countOrdered By: Clyde Choi on 04-12-2025 Monocytes (Bld) [#/Vol] 0.6 10*3/uL Normal 0.0-0.8 [facility] Comment on above: Performed By: #### C BC #### [place] [address] [place] Monocytes/100 leukocytes in Blood by Automated countOrdered By: Clyde Choi on 04-12-2025 Monocytes/100 WBC (Bld) 5.1 % Normal . [facility] Comment on above: Performed By: #### C BC #### [place] [address] [place] Neutrophils [#/volume] in Bl ood by Automated countOrdered By: Clyde Choi on 04-12-2025 Neutrophils (Bld) [#/Vol] 8.6 10*3/uL High 1.8-7.7 [facility] Comment on above: Performed By: #### C BC #### [place] [address] [place] Neutrophils/100 leukocytes i n Blood by Automated countOrdered By: Clyde Choi on 04-12-2025 Neutrophils/100 WBC (Bld) 78.7 % Normal . [facility] Comment on above: Performed By: #### C BC #### [place] [address] [place] Nucleated erythrocytes [Pres ence] in Blood by Automated countOrdered By: Clyde Choi on 04-12-2025 Nucleated RBC Auto Ql (Bld) 0.1 /100{WBC} 0-0.5 [facility] Platelet mean volume [Entiti c volume] in Blood by Automated countOrdered By: Clyde Choi on 04-12-2025 Platelet mean volume (Bld) [Entitic vol] 9.9 fL Normal 6.3-10.7 [facility] Comment on above: Performed By: #### C BC #### [place] [address] [place] Platelets [#/volume] in Bloo d by Automated countOrdered By: Clyde Choi on 04-12-2025 Platelets (Bld) [#/Vol] 148 10*3/uL Low 150-450 [facility] Comment on above: Performed By: #### C #### [place] [id number] [facility] Capillary blood glucose juan r urement by glucometer (mass/volume)Ordered By: Clyde Choi on 04-11-2025 Glucose [Mass/Vol] 109 mg/dL Normal [facility] Comment on above: Random Glucose Refer ence Range is dependent on time and content of last meal. Glucose of more than 200 mg/dL in a nonstressed, ambulatory subject supports the diagnosis of Diabetes Mellitus. Result Comment: [place] om Glucose Reference Range is dependent on time and content of last meal. Glucose of more than 200 mg/dL in a nonstressed, ambulatory subject supports the diagnosis of Diabetes Mellitus. PERFORMED BY: [facility] [address] [facility] [address] PATHOLOGIST MATERIAL HANDLING CREW SUPERVISOR ALISA GOMEZ M.D. Performed By: #### G TERE #### Point of Care testing , [facility] 04-11-2025 L - -------- Specimen: [id number] Received: 04/13/25 Status: NIDA Meade Num: [id number] Spec Type: Surgical Subm Dr: Clyde Choi,DO Tissues: A Appendix - Other than Incidental (APPENDIX) Procedures: HE/2, Gross/Micro L3 -------- Age/ Patient Sex Location Account Attending Physician -------- PerlitaKiya Tito 49/F 4P [id number] Clyde Choi DO -------- SPEC NUM: [id number] RECD: 04/13/25 STATUS: NIDA MEADE NUM: [id number] CIERA: 04/11/25-[address]: Clyde Choi DO ENTERED: 04/13/[address]: VICKIE TYPE: Surgical DEPT: S ENTERED BY: [id number] RECV BY: [id number] ORDERED: HE/2, Gross/Micro L3 ORDERED: HE/2, Gross/Micro [...] bisected distal tip submitted in A2. (2, ss, [id number] A) CPT Codes 79560 -------- -------- Specimen: [id number] Received: 04/13/25 Status: NIDA Meade Num: [id number] Spec Type: Surgical Subm Dr: Clyde Choi DO Tissues: A Appendix - Other than Incidental (APPENDIX) Procedures: HE/2, Gross/Micro L3 -------- Patient: Kiya Bhat [id number] (Continued) -------- Signed (signature on file) Jagdish Reyes MD 04/14/25 1512 Normal [facility] CNOVon 12-24-2024 CNOV Office Visit (THORMN ) KIYA BHAT ([id number]) 1975 F Date Time Provider Department 12/24/24 2:15 PM EDISON ARDON During your visit today, we recorded the following information about you: Temperature Pulse Respiration Blood pressure 98.2 degrees 89/minute 14/minute 117/79 Weight Height 85.3 kg 1.6 m Heena Manjarrez MD 01/03/2025 9:17 AM Signed [facility] THORAC[facility] SURGERY OUTPATIENT CONSULT NOTE Kiya Bhat [id number] Requesting Provider: Self Thoracic Physician: Edison Ardon [...] personally performed by: Duglas Manjarrez Patient-Entered Questionnaire [facility] Esophageal Questionnaire 12/23/2024 Domain Symptom Raw [...] the following (more content not included)... Normal [facility] XR ESOPHAGRAMon 12-24-2024 XR ESOPHAGRAM [...] with organoaxial orientation. No demonstrated gastroesophageal reflux. Terrazzo Helper: [facility] Transcribe Date/Time: Dec 24 2024 2:30P Dictated by : ALANNA FOSTER MD This examination was interpreted and the report reviewed and electronically signed by: LOREE VALDEZ MD on Dec 24 2024 3:55PM EST [id number] Normal [facility] XR Esophagus Views W contras t Thad 12-24-2024 IMPRESSION: Large hiatal hernia (type III) with organoaxial orientation. No demonstrated gastroesophageal reflux. Terrazzo Helper: [facility] Transcribe Date/Time: Dec 24 2024 2:30P Dictated [...] the entire procedure. DIVISION OF RADIOLOGY Provider, Aguilar Lila joseph [place] - 12/24/2024 * * *Final Report* * [...] with organoaxial orientation. No demonstrated gastroesophageal reflux. Terrazzo Helper: [facility] Transcribe Date/Time: Dec 24 2024 2:30P Dictated by : ALANNA FOSTER MD This examination was interpreted and the report reviewed and electronically signed by: LOREE VALDEZ MD on Dec 24 2024 3:55PM EST [facility] Radiology Study observation (narrative) [facility] XR Esophagus Views W jhonatan berkowitz POOrdered By: Cc Provider on 12-24-2024 [facility] Thiago 11-24-2024 CNPN Telephone (THORMN) KIYA BHAT ([id number]) 1975 F Date Time Provider Department 11/24/24 EDISON ARDON During your visit today, we recorded the following information about you: Weight 88.9 kg Renae Holly 11/24/2024 1:28 PM Signed LOCAL PATIENT Received [employer] Staff Message from Gill Brar Perlita is former pt of Edison Ardon M.D., [...] office for scheduling. Please call pt at [phone]. Patient was informed consultation could be at [place] or [facility] [place]: No Patient Registration: Registration complete/updated: yes Insurance card(s) scanned in [facility] with in the past year: No Pt's [facility] is active. Ok to communicate to pt via [facility] [facility] yes Medical Records: Records in [employer] (internal CC records): Yes (old) Imaging in [facility] (internal [facility] records): Yes (old) Care [...] Yes, Thoracic NPM for triage Renae Elliott Jenni Mg, HAWK 11/24/2024 4:13 PM Addendum Thoracic Surgery Consultation [...] Reason for Visit: Consult [173] Appointment Confirmation [3505] Primary Visit Diagnosis:Diaphragmat ic hernia without obstruction and without gangrene [K44.9] Order(s):XR ESOPHAGRAM [9885006] Order #: [id number] FUTURE Prescriptions as of 11/24/2024 - multivitamin [...] 1 tablet by mouth once daily. - kxjngll-qawddkciz-psu dunaway D3 (CALCIUM 500+D) 500 mg(1,250mg) -200 unit per tablet Take 1 tablet by mouth once daily. - Ibuprofen 200 mg cap (more content not included)... [facility] KIYA BHAT ([id number]) 1975 F Date Time Provider Department 11/24/24 EDISON ARDON During your visit today, we recorded the following information about you: Renae Holly 11/24/2024 2:15 PM Signed Attempt #1 Requested Medical Records from the office of Dr. Cabrera Jones Spoke to: Jacki Phone #: [phone] Fax #: [phone] Jacki agreed to fax the last office note Renae Elliott November 24, 2024 2:12 PM Renae Holly 11/24/2024 4:06 PM Signed Received outside office note (scanned) to [facility]. Renae Chaudhry Arm Maker Allergies As of Date: 11/24/2024 (No Known Allergies) Date Reviewed: 10/08/2019 Reviewed by: Darya Tony) - Fully Assessed Reason for Visit: Request Outside Medical Records [5206] Received Outside Medical Records [3576] Prescriptions as of 11/24/2024 - multivitamin (MULTIPLE [...] 1 tablet by mouth once daily. - pwozyyu-cojrwkwvi-loy dunaway D3 (CALCIUM 500+D) 500 mg(1,250mg) -200 unit per tablet Take 1 tablet by mouth once daily. - Ibuprofen 200 mg cap Take 1-2 capsules by mouth as needed (for pain). Problem List As Of Date: 11/24/2024 (None) Encounter Status:Closed by RENAE HOLLY on 11/24/24 [facility] PERLITAKIYA ([id number]) 1975 F Date Time Provider Department 11/24/24 EDISON ARDON During your visit today, we recorded the following information about you: Gill Brar 11/24/2024 11:33 AM Signed .RECEIVED CALL FROM: Patient PATIENT INFORMATION: Name: Kiya Bhat : 1975 (home) [phone] (cell) Email: [email or web address] Referring Provider: No referring provider defined for this encounter. Phone: N/A Fax: Requested Surgeon: Edison Ardon M.D., Ph.D. Reason for appointment/diagnosis : Diaphragmatic hernia without obstruction and without gangrene Gill Brar November 24, 2024 11:32 AM Allergies As of Date: 11/24/2024 (No Known Allergies) Date Reviewed: 10/08/2019 Reviewed by: Darya Tony (Sara) - Fully Assessed Reason for Visit: Appointment [...] 1 tablet by mouth once daily. - keznjjr-gzsgjblrl-tkb dunaway D3 (CALCIUM 500+D) 500 mg(1,250mg) -200 unit per tablet Take 1 tablet by mouth once daily. - Ibuprofen 200 mg cap Take 1-2 capsules by mouth as needed (for pain). Problem List As Of Date: 11/24/2024 (None) Encounter Status:Closed by GILL BRAR on 11/24/24 Normal [facility] Covid-19 PCR (CVDTBH)on 04-28 SARS-CoV-2 (COVID-19) RNA SUKHWINDER+probe Ql (Unsp spec) Not detected Normal NOT DETECTED [facility] Comment on above: Result Comment: This test is not yet approved or cleared by the [place] FDA. When there are no FDA-approved or cleared tests available, and other criteria are met, FDA can make tests available under an emergency access mechanism called an Emergency Use Authorization (EUA). The EUA for this test is supported by the Human Resources Talent Manager of Health and Human Service's (HHS's) declaration [...] MP, BNP, TSH, HSTROPN #### [facility] [address] [address] [address] Emily Hercules Facesheeton 03-02-2022 Facesheet [id number] .00CD:127 Normal [facility] Physician Referralon 022 Physician Referral [id number]. 00CD:127 Normal [facility]30 SARS-CoV-2 (COVID-19) RNA SUKHWINDER+probe Ql (Unsp spec) Not detected Normal NOT DETECTED [facility] Comment on above: Result Comment: This test is not yet approved or cleared by the [place] FDA. When there are no FDA-approved or cleared tests available, and other criteria are met, FDA can make tests available under an emergency access mechanism called an Emergency Use Authorization (EUA). The EUA for this test is supported by the [employer] of Health and Human Service's (HHS's) declaration [...] consistent with SARS-CoV-2. Performed By: #### [facility] #### [facility] [address] [place] [address] Dr. Emily Hercules MG MAMM SCREEN 3D SHELLY CADon 09-15-2021 MG MAMM SCREEN 3D SHELLY CAD Patient: KIYA BHAT Exam Date: 09/15/2021 : 1975 Gender:F Ordering : DR CABRERA JONES . Admission #: [id number] Family : Order #: [id number] CLICK HERE TO VIEW EXAM RADIOLOGY REPORT PROCEDURE: MAMMOGRAM SCREENING 3D BILATERAL CAD COMPARISON: None. INDICATIONS: Screening mammography Calculator Name NCI Breast Cancer Risk Assessment Tool 5 Year Breast Cancer Risk 0.70% Lifetime Breast Cancer Risk 6.70% Personal Breast Cancer No Personal Ovarian Cancer No Treatments None Family Cancers Grandmother-maternal with leukemia cancer at age 38. LOCATION: [facility] BREAST COMPOSITION: Scattered areas fibroglandular density. [...] 09/15/2021 at 11:59 Normal [facility] FSHon 09-03-2021 FSH 8.8 mIU/mL Normal [facility] Comment on above: Result Comment: Adul t Female: Follicular phase 3.5 - 12.5 Ovulation phase 4.7 - 21.5 Luteal phase 1.7 - 7.7 Postmenopausal 25.8 - 134.8 Performed By: #### L BCFSH #### [facility] [address] [place] [address] Dr. Emily Hercules INSULINon 09-03-2021 Insulin 19.4 uIU/mL Normal 2.6-24.9 [facility] Comment on above: Performed By: #### C MP, BNP, TSH, HSTROPN #### [facility] [address] [place] [address] Dr. Emily Hercules CBC AUTO DIFFon 09-02-2021 BASO # 0.1 103/ul Normal 0.0-0.1 [facility] Comment on above: Performed By: #### C BC #### [facility] [address] [place] [address] Dr. Emily Hercules Basophils/100 WBC (Bld) 0.7 % Normal 0.2-2.0 [facility] Comment on above: Performed By: #### C BC #### [facility] [address] [place] [address] Dr. Emily Hercules EO # 0.3 103/ul Normal 0.0-0.7 [facility] Comment on above: Performed By: #### C BC #### [facility] [address] [place] [address] Dr. Emily Hercules Eosinophils/100 WBC (Bld) 3.8 % Normal 0.9-7.0 [facility] Comment on above: Performed By: #### C BC #### [facility] [address] [place] [address] Dr. Emily Hercules Erythrocyte distribution width (RBC) [Ratio] 13.6 % Normal 11.0-15.0 [facility] Comment on above: Performed By: #### C BC #### [facility] [address] [place] [address] Dr. Emily Hercules Hematocrit (Bld) [Volume fraction] 42.6 % Normal 36.0-48.0 [facility] Comment on above: Performed By: #### C BC #### [facility] [address] [place] [address] Dr. Emily Hercules Hemoglobin (Bld) [Mass/Vol] 14.5 g/dL Normal 12.0-16.0 [facility] Comment on above: Performed By: #### C BC #### [facility] [address] [place] [address] Dr. Emily Hercules IG # 0.08 10e3/ul Critically high 0.00-0.03 [facility] Comment on above: Performed By: #### C BC #### [facility] [address] [place] [address] Dr. Emily Hercules IG % 1.0 % Critically high 0.0-0.5 [facility] Comment on above: Performed By: #### C BC #### [facility] [address] [place] [address] Dr. Emily Hercules LYMPH # 2.2 103/ul Normal 1.2-3.8 [facility] Comment on above: Performed By: #### C BC #### [facility] [address] [place] [address] Dr. Emily Hercules Lymphocytes/100 WBC (Bld) 27.4 % Normal 20.5-60.0 [facility] Comment on above: Performed By: #### C BC #### [facility] [address] [place] [address] Dr. Emily Hercules MANUAL DIFF REQ NO Normal [facility] Comment on above: Performed By: #### C BC #### [facility] [address] [place] [address] Dr. Emily Hercules MCH (RBC) [Entitic mass] 30.2 pg Normal 26.7-34.0 [facility] Comment on above: Performed By: #### C BC #### [facility] [address] [place] [address] Dr. Emily Hercules MCHC (RBC) [Mass/Vol] 34.0 g/dL Normal 29.9-35.2 [facility] Comment on above: Performed By: #### C BC #### [facility] [address] [place] [address] Dr. Emily Hercules MCV (RBC) [Entitic vol] 88.8 fL Normal 81.0-99.0 [facility] Comment on above: Performed By: #### C BC #### [facility] [address] [place] [address] Dr. Emily Hercules MONO # 0.5 103/ul Normal 0.3-0.8 [facility] Comment on above: Performed By: #### C BC #### [facility] [address] [place] [address] Dr. Emily Hercules Monocytes/100 WBC (Bld) 6.2 % Normal 1.7-12.0 [facility] Comment on above: Performed By: #### C BC #### [facility] [address] [place] [address] Dr. Emily Hercules NEUT # 4.9 103/ul Normal 1.4-6.5 [facility] Comment on above: Performed By: #### C BC #### [facility] [address] [place] [address] Dr. Emily Hercules Neutrophils/100 WBC (Bld) 60.9 % Normal 43.0-75.0 [facility] Comment on above: Performed By: #### C BC #### [facility] [address] [address] [address] Emily Hercules Platelet mean volume (Bld) [Entitic vol] 11.6 fL Normal 9.5-13.5 [facility] Comment on above: Performed By: #### C BC #### [facility] [address] [address] [address] Emily Hercules PLT 180 103/ul Normal 150-450 [facility] Comment on above: Performed By: #### C BC #### [facility] [address] [address] [address] Emily Hercules RBC 4.80 106/ul Normal 4.20-5.40 [facility] Comment on above: Performed By: #### C BC #### [facility] [address] [address] [address] Emily Hercules WBC 8.1 103/ul Normal 4.0-11.0 [facility] Comment on above: Performed By: #### C BC #### [facility] [address] [address] [address] Emily Hercules FREE THYROXINE INDEX T7on FTI 3.47 Normal [facility] Comment on above: Performed By: #### T 7, CMP, LIPID, TSH #### [facility] [address] [place] [address] Dr. Emily Hercules T3U 35.0 % Normal 23.5-40.5 [facility] Comment on above: Performed By: #### T 7, CMP, LIPID, TSH #### [facility] [address] [address] [address] Emily Hercules T4 [Mass/Vol] 9.90 ug/dL Normal 5.53-11.00 [facility] Comment on above: Performed By: #### T 7, CMP, LIPID, TSH #### [facility] [address] [address] [address] Emily Hercules GLYCOHEMOGLOBIN A1Con 2020 ADA RECOMMENDATION ADA THERAPEUTIC TARGET 6.0 - 7.0 ACTION SUGGESTED > 7.0 Normal [facility] Comment on above: Performed By: #### C MP, BNP, TSH, HSTROPN #### [facility] [address] [address] [address] Emily Hercules Glucose [Mass/Vol] 114 mg/dL Normal [facility] [place] Comment on above: Performed By: #### C MP, BNP, TSH, HSTROPN #### [facility] [address] [address] [address] Emily Hercules HbA1c (Bld) [Mass fraction] 5.6 % Normal <=6.0 [facility] Comment on above: Performed By: #### C MP, BNP, TSH, HSTROPN #### [facility] [address] [place] [address] Dr. Emily Hercules IRONon 09-02-2021 Iron [Mass/Vol] 111.0 ug/dL Normal 37.0-170.0 [facility] Comment on above: Performed By: #### C MP, BNP, TSH, HSTROPN #### [facility] [address] [place] [address] Dr. Emily Hercules LIPID PROFILEon 09-02-2021 CHOL-HDL RATIO NORM SEE BELOW Normal [facility] Comment on above: Result Comment: 3.3 - 4.4 LOW RISK 4.4 - 7.1 AVERAGE RISK 7.1 - 11.0 MODERATE RISK >11.0 HIGH RISK Performed By: #### C MP, BNP, TSH, HSTROPN #### [facility] [address] [address] [address] Emily Hercules Cholesterol [Mass/Vol] 183 mg/dL Normal <=200 [facility] Comment on above: Performed By: #### C MP, BNP, TSH, HSTROPN #### [facility] [address] [place] [address] Dr. Emily Herucles Cholesterol in HDL [Mass/Vol] 43 mg/dL Normal [facility] Comment on above: Performed By: #### C MP, BNP, TSH, HSTROPN #### [facility] [address] [place] [address] Dr. Emily Hercules Cholesterol in LDL [Mass/Vol] 109.0 mg/dL Normal [facility] Comment on above: Performed By: #### C MP, BNP, TSH, HSTROPN #### [facility] [address] [address] [address] Emily Hercules Cholesterol.total/Ch olesterol in HDL [Mass ratio] 4.3 {ratio} Normal [facility] Comment on above: Performed By: #### C MP, BNP, TSH, HSTROPN #### [facility] [address] [address] [address] Emily Hercules HDL NORMAL > or = 60 mg/dl - LO W CARDIOVASCULAR RISK <40 mg/dl - HIGH CARDIOVASCULAR RISK Normal [facility] Comment on above: Performed By: #### C MP, BNP, TSH, HSTROPN #### [facility] [address] [place] [address] Dr. Emily Hercules LDL CALC NORMAL SEE BELOW Normal [facility] Comment on above: Result Comment: <100 mg/dl OPTIMAL 100 - 129 mg/dl NEAR OR ABOVE OPTIMAL 130 - 159 mg/dl BORDERLINE HIGH 160 - 189 mg/dl HIGH >190 mg/dl VERY HIGH Performed By: #### C MP, BNP, TSH, HSTROPN #### [facility] [address] [place] [address] Dr. Emily Hercules Triglyceride [Mass/Vol] 155 mg/dL Critically high <=150 [facility] Comment on above: Performed By: #### C MP, BNP, TSH, HSTROPN #### [facility] [address] [place] [address] Dr. Emily Hercules VLDL CALC 31.0 mg/dL Normal [facility] Comment on above: Performed By: #### C MP, BNP, TSH, HSTROPN #### [facility] [address] [address] [address] Emily Hercules PROF 14(COMP METB)on 021 Albumin [Mass/Vol] 3.8 g/dL Normal 3.5-5.0 [facility] [place] Comment on above: Performed By: #### T 7, CMP, LIPID, TSH #### [facility] [address] [address] [address] Emily Hercules Albumin/Globulin [Mass ratio] 1.1 {ratio} Normal [facility] Comment on above: Performed By: #### T 7, CMP, LIPID, TSH #### [facility] [address] [address] [address] Emily Hercules ALP [Catalytic activity/Vol] 57 U/L Normal 38-126 [facility] Comment on above: Performed By: #### T 7, CMP, LIPID, TSH #### [facility] [address] [address] [address] Emily Hercules ALT [Catalytic activity/Vol] 57 U/L Critically high 9-52 [facility] Comment on above: Performed By: #### T 7, CMP, LIPID, TSH #### [facility] [address] [address] [address] Emily Hercules Anion gap [Moles/Vol] 11.7 mmol/L Normal [facility] Comment on above: Performed By: #### T 7, CMP, LIPID, TSH #### [facility] [address] [address] [address] Emily Hercules AST [Catalytic activity/Vol] 35 U/L Normal 14-36 [facility] Comment on above: Performed By: #### T 7, CMP, LIPID, TSH #### [facility] [address] [address] [address] Emily Hercules Bilirubin [Mass/Vol] 0.7 mg/dL Normal 0.2-1.3 [facility] Comment on above: Performed By: #### T 7, CMP, LIPID, TSH #### [facility] [address] [address] [address] Emily Herculse Calcium [Mass/Vol] 8.8 mg/dL Normal 8.4-10.2 [facility] [place] Comment on above: Performed By: #### T 7, CMP, LIPID, TSH #### [facility] [address] [address] [address] Emily Hercules Chloride [Moles/Vol] 105 mmol/L Normal 98-107 [facility] Comment on above: Performed By: #### T 7, CMP, LIPID, TSH #### [facility] [address] [address] [address] Emily Hercules CO2 [Moles/Vol] 26.1 mmol/L Normal 22.0-30.0 [facility] Comment on above: Performed By: #### T 7, CMP, LIPID, TSH #### [facility] [address] [address] [address] Emily Hercules Creatinine [Mass/Vol] 1.34 mg/dL Critically high 0.52-1.04 [facility] Comment on above: Performed By: #### T 7, CMP, LIPID, TSH #### [facility] [address] [place] [address] Dr. Emily Hercules EGFR-AF SAMMARINESE 51 mL/min/1.73m2 Critically low >=60 [facility] Comment on above: Performed By: #### T 7, CMP, LIPID, TSH #### [facility] [address] [place] [address] Dr. Emily Hercules EGFR-NON AF SAMMARINESE 42 mL/min/1.73m2 Critically low >=60 [facility] Comment on above: Performed By: #### T 7, CMP, LIPID, TSH #### [facility] [address] [place] [address] Dr. Emily Hercules Globulin (S) [Mass/Vol] 3.4 g/dL Normal [facility] Comment on above: Performed By: #### T 7, CMP, LIPID, TSH #### [facility] [address] [place] [address] Dr. Emily Hercules Glucose [Mass/Vol] 92 mg/dL Normal 74-106 [facility] Comment on above: Performed By: #### T 7, CMP, LIPID, TSH #### [facility] [address] [place] [address] Dr. Emily Hercules Potassium [Moles/Vol] 3.8 mmol/L Normal 3.4-5.0 [facility] Comment on above: Performed By: #### T 7, CMP, LIPID, TSH #### [facility] [address] [address] [address] Emily Hercules Protein [Mass/Vol] 7.2 g/dL Normal 6.1-8.2 [facility] [place] Comment on above: Performed By: #### T 7, CMP, LIPID, TSH #### [facility] [address] [place] [address] Dr. Emily Hercules Sodium [Moles/Vol] 139 mmol/L Normal 137-145 [facility] Comment on above: Performed By: #### T 7, CMP, LIPID, TSH #### [facility] [address] [place] [address] Dr. Emily Hercules Urea nitrogen [Mass/Vol] 21.0 mg/dL Critically high 7.0-17.0 [facility] Comment on above: Performed By: #### T 7, CMP, LIPID, TSH #### [facility] [address] [place] [address] Dr. Emily Hercules Urea nitrogen/Creatinine [Mass ratio] 15.7 mg/mg Normal [facility] Comment on above: Performed By: #### T 7, CMP, LIPID, TSH #### [facility] [address] [place] [address] Dr. Emily Hercules TSHon 09-02-2021 TSH 1.130 uIU/mL Normal 0.470-4.680 [facility] Comment on above: Performed By: #### T 7, CMP, LIPID, TSH #### [facility] [address] [place] [address] Dr. Emily Hercules TSH RANGE SEE BELOW Normal [facility] Comment on above: Result Comment: <0.3 4 UIU/ml HYPERTHYROID 0.34-5.60 UIU/ml EUTHYROID >5.60 UIU/ml HYPOTHYROID Performed By: #### T 7, CMP, LIPID, TSH #### [facility] [address] [place] [address] Dr. Emily Hercules BNPon 08-24-2021 Natriuretic peptide B (Bld) [Mass/Vol] 98.0 pg/mL Normal <=450.0 [facility] Comment on above: Performed By: #### C MP, BNP, TSH, HSTROPN #### [facility] [address] [place] [address] Dr. Emily Hercules CBC AUTO DIFFon 08-24-2021 BASO # 0.0 103/ul Normal 0.0-0.1 [facility] Comment on above: Performed By: #### C MP, BNP, TSH, HSTROPN #### [facility] [address] [place] [address] Dr. Emily Hercules Basophils/100 WBC (Bld) 0.6 % Normal 0.2-2.0 [facility] Comment on above: Performed By: #### C MP, BNP, TSH, HSTROPN #### [facility] [address] [place] [address] Dr. Emily Hercules EO # 0.3 103/ul Normal 0.0-0.7 [facility] Comment on above: Performed By: #### C MP, BNP, TSH, HSTROPN #### [facility] [address] [place] [address] Dr. Emily Hercules Eosinophils/100 WBC (Bld) 4.1 % Normal 0.9-7.0 [facility] Comment on above: Performed By: #### C MP, BNP, TSH, HSTROPN #### [facility] [address] [place] [address] Dr. Emily Hercules Erythrocyte distribution width (RBC) [Ratio] 13.6 % Normal 11.0-15.0 [facility] Comment on above: Performed By: #### C MP, BNP, TSH, HSTROPN #### [facility] [address] [place] [address] Dr. Emily Hercules Hematocrit (Bld) [Volume fraction] 39.4 % Normal 36.0-48.0 [facility] Comment on above: Performed By: #### C MP, BNP, TSH, HSTROPN #### [facility] [address] [place] [address] Dr. Emily Hercules Hemoglobin (Bld) [Mass/Vol] 13.4 g/dL Normal 12.0-16.0 [facility] Comment on above: Performed By: #### C MP, BNP, TSH, HSTROPN #### [facility] [address] [place] [address] Dr. Emily Hercules IG # 0.02 10e3/ul Normal 0.00-0.03 [facility] Comment on above: Performed By: #### C MP, BNP, TSH, HSTROPN #### [facility] [address] [place] [address] Dr. Emily Hercules IG % 0.3 % Normal 0.0-0.5 [facility] Comment on above: Performed By: #### C MP, BNP, TSH, HSTROPN #### [facility] [address] [place] [address] Dr. Emily Hercules LYMPH # 1.8 103/ul Normal 1.2-3.8 [facility] Comment on above: Performed By: #### C MP, BNP, TSH, HSTROPN #### [facility] [address] [place] [address] Dr. Emily Hercules Lymphocytes/100 WBC (Bld) 25.9 % Normal 20.5-60.0 [facility] Comment on above: Performed By: #### C MP, BNP, TSH, HSTROPN #### [facility] [address] [place] [address] Dr. Emily Hercules MANUAL DIFF REQ NO Normal [facility] Comment on above: Performed By: #### C MP, BNP, TSH, HSTROPN #### [facility] [address] [place] [address] Dr. Emily Hercules MCH (RBC) [Entitic mass] 29.9 pg Normal 26.7-34.0 [facility] Comment on above: Performed By: #### C MP, BNP, TSH, HSTROPN #### [facility] [address] [place] [address] Dr. Emily Hercules MCHC (RBC) [Mass/Vol] 34.0 g/dL Normal 29.9-35.2 [facility] Comment on above: Performed By: #### C MP, BNP, TSH, HSTROPN #### [facility] [address] [place] [address] Dr. Emily Hercules MCV (RBC) [Entitic vol] 87.9 fL Normal 81.0-99.0 [facility] Comment on above: Performed By: #### C MP, BNP, TSH, HSTROPN #### [facility] [address] [place] [address] Dr. Emily Hercules MONO # 0.4 103/ul Normal 0.3-0.8 [facility] Comment on above: Performed By: #### C MP, BNP, TSH, HSTROPN #### [facility] [address] [place] [address] Dr. Emily Hercules Monocytes/100 WBC (Bld) 5.8 % Normal 1.7-12.0 [facility] Comment on above: Performed By: #### C MP, BNP, TSH, HSTROPN #### [facility] [address] [place] [address] Dr. Emily Hercules NEUT # 4.4 103/ul Normal 1.4-6.5 [facility] Comment on above: Performed By: #### C MP, BNP, TSH, HSTROPN #### [facility] [address] [place] [address] Dr. Emily Hercules Neutrophils/100 WBC (Bld) 63.3 % Normal 43.0-75.0 [facility] Comment on above: Performed By: #### C MP, BNP, TSH, HSTROPN #### [facility] [address] [place] [address] Dr. Emily Hercules Platelet mean volume (Bld) [Entitic vol] 11.7 fL Normal 9.5-13.5 [facility] Comment on above: Performed By: #### C MP, BNP, TSH, HSTROPN #### [facility] [address] [place] [address] Dr. Emily Hercules PLT 122 103/ul Critically low 150-450 [facility] Comment on above: Performed By: #### C MP, BNP, TSH, HSTROPN #### [facility] [address] [place], [place] [address] Dr. Emily Hercules RBC 4.48 106/ul Normal 4.20-5.40 [facility] Comment on above: Performed By: #### C MP, BNP, TSH, HSTROPN #### [facility] [address] [place], [place] [address] Dr. Emily Hercules WBC 6.9 103/ul Normal 4.0-11.0 [facility] Comment on above: Performed By: #### C MP, BNP, TSH, HSTROPN #### [facility] [address] [place], [place] [address] Dr. Emily Hercules CTA CHEST WO W [...] Date: 2021-08-24 17:14 Normal [facility] Covid-19 PCR (CVDTBH)on 07-30 SARS-CoV-2 (COVID-19) RNA SUKHWINDER+probe Ql (Unsp spec) Not detected Normal NOT DETECTED [facility] Comment on above: Result Comment: This test is not yet approved or cleared by the [place] FDA. When there are no FDA-approved or cleared tests available, and other criteria are met, FDA can make tests available under an emergency access mechanism called an Emergency Use Authorization (EUA). The EUA for this test is supported by the [place] of Health and Human Service's (HHS's) declaration [...] MP, BNP, TSH, HSTROPN #### [facility] [address] [place] [address] Dr. Emily Hercules LACTATE/LACTIC ACIDon 2020 Lactate [Moles/Vol] 0.5 mmol/L Critically low 0.7-2.0 T [facility] Comment on above: Performed By: #### C MP, BNP, TSH, HSTROPN #### [facility] [address] [address] [address] Emily Hercules PROF 14(COMP METB)on 021 Albumin [Mass/Vol] 3.7 g/dL Normal 3.5-5.0 [facility] [place] Comment on above: Performed By: #### C MP, BNP, TSH, HSTROPN #### [facility] [address] [place] [address] Dr. Emily Hercules Albumin/Globulin [Mass ratio] 1.0 {ratio} Normal [facility] Comment on above: Performed By: #### C MP, BNP, TSH, HSTROPN #### [facility] [address] [address] [address] Emily Hercules ALP [Catalytic activity/Vol] 63 U/L Normal 38-126 [facility] Comment on above: Performed By: #### C MP, BNP, TSH, HSTROPN #### [facility] [address] [place] [address] Dr. Emily Hercules ALT [Catalytic activity/Vol] 66 U/L Critically high 9-52 [facility] Comment on above: Performed By: #### C MP, BNP, TSH, HSTROPN #### [facility] [address] [address] [address] Emily Hercules Anion gap [Moles/Vol] 12.3 mmol/L Normal [facility] Comment on above: Performed By: #### C MP, BNP, TSH, HSTROPN #### [facility] [address] [address] [address] Emily Hercules AST [Catalytic activity/Vol] 48 U/L Critically high 14-36 [facility] Comment on above: Performed By: #### C MP, BNP, TSH, HSTROPN #### [facility] [address] [address] [address] Emily Hercules Bilirubin [Mass/Vol] 0.6 mg/dL Normal 0.2-1.3 [facility] Comment on above: Performed By: #### C MP, BNP, TSH, HSTROPN #### [facility] [address] [address] [address] Emily Hercules Calcium [Mass/Vol] 9.2 mg/dL Normal 8.4-10.2 [facility] Comment on above: Performed By: #### C MP, BNP, TSH, HSTROPN #### [facility] [address] [address] [address] Emily Hercules Chloride [Moles/Vol] 103 mmol/L Normal 98-107 [facility] Comment on above: Performed By: #### C MP, BNP, TSH, HSTROPN #### [facility] [address] [address] [address] Emily Hercules CO2 [Moles/Vol] 25.2 mmol/L Normal 22.0-30.0 [facility] Comment on above: Performed By: #### C MP, BNP, TSH, HSTROPN #### [facility] [address] [address] [address] Emily Hercules Creatinine [Mass/Vol] 1.49 mg/dL Critically high 0.52-1.04 [facility] Comment on above: Performed By: #### C MP, BNP, TSH, HSTROPN #### [facility] [address] [address] [address] Emily Hercules EGFR-AF SAMMARINESE 45 mL/min/1.73m2 Critically low >=60 [facility] Comment on above: Performed By: #### C MP, BNP, TSH, HSTROPN #### [facility] [address] [address] [address] Emily Herculse EGFR-NON AF SAMMARINESE 37 mL/min/1.73m2 Critically low >=60 [facility] Comment on above: Performed By: #### C MP, BNP, TSH, HSTROPN #### [facility] [address] [address] [address] Emily Hercules Globulin (S) [Mass/Vol] 3.6 g/dL Normal [facility] Comment on above: Performed By: #### C MP, BNP, TSH, HSTROPN #### [facility] [address] [address] [address] Emily Hercules Glucose [Mass/Vol] 100 mg/dL Normal 74-106 [facility] Comment on above: Performed By: #### C MP, BNP, TSH, HSTROPN #### [facility] [address] [place] [address] Dr. Emily Hercules Potassium [Moles/Vol] 4.5 mmol/L Normal 3.4-5.0 [facility] Comment on above: Performed By: #### C MP, BNP, TSH, HSTROPN #### [facility] [address] [place] [address] Dr. Emily Hercules Protein [Mass/Vol] 7.3 g/dL Normal 6.1-8.2 [facility] Comment on above: Performed By: #### C MP, BNP, TSH, HSTROPN #### [facility] [address] [place] [address] Dr. Emily Hercules Sodium [Moles/Vol] 136 mmol/L Critically low 137-145 [facility] Comment on above: Performed By: #### C MP, BNP, TSH, HSTROPN #### [facility] [address] [place] [address] Dr. Emily Hercules Urea nitrogen [Mass/Vol] 22.0 mg/dL Critically high 7.0-17.0 [facility] Comment on above: Performed By: #### C MP, BNP, TSH, HSTROPN #### [facility] [address] [place] [address] Dr. Emily Hercules Urea nitrogen/Creatinine [Mass ratio] 14.8 mg/mg Normal [facility] Comment on above: Performed By: #### C MP, BNP, TSH, HSTROPN #### [facility] [address] [place] [address] Dr. Emily Hercules PROTIMEon 08-24-2021 INR Coag (PPP) [Relative time] 1.08 {INR} Normal [facility] Comment on above: Performed By: #### C MP, BNP, TSH, HSTROPN #### [facility] [address] [place] [address] Dr. Emily Hercules INR GUIDELINES SEE BELOW Normal [facility] Comment on above: Result Comment: GUILLERMO RED INR: 2.0 - 3.0 CONDITIONS NOT LISTED BELOW 2.5 - 3.5 FOR PROSTHETIC HEART VALVE REPLACEMENT 2.5 - 3.5 RECURRENT THROMBOSIS Performed By: #### C MP, BNP, TSH, HSTROPN #### [facility] [address] [place] [address] Dr. Emily Hercules PT Coag (PPP) [Time] 11.6 s Normal 9.0-11.6 [facility] Comment on above: Performed By: #### C MP, BNP, TSH, HSTROPN #### [facility] [address] [place] [address] Dr. Emily Hercules PTTon 08-24-2021 aPTT Coag (Bld) [Time] 29.6 s Normal 22.3-36.2 [facility] Comment on above: Performed By: #### C MP, BNP, TSH, HSTROPN #### [facility] [address] [place] [address] Dr. Emily Hercules TROPONIN, HIGH SENSITIVITYon 08-24-2021 HSTROP 4.9 pg/mL Normal 4.0-35.5 [facility] Comment on above: Result Comment: CUT- OFF POINTS HAVE BEEN ESTABLISHED BASED ON THE FOURTH UNIVERSAL DEFINITIONS OF MYOCARDIAL INFARCTION. THE UPPER REFERENCE LIMIT (URL) OF TROPONIN, DEFINED THE 99TH PERCENTILE OF cTnI DISTRIBUTION IN A REFERENCE POPULATION, HAS BEEN CONFIRMED THE DECISION THRESHOLD FOR MS DIAGNOSIS. Performed By: #### C MP, BNP, TSH, HSTROPN #### [facility] [address] [place] [address] Dr. Emily Hercules HSTROP 7.0 pg/mL Normal 4.0-35.5 [facility] Comment on above: Result Comment: CUT- OFF POINTS HAVE BEEN ESTABLISHED BASED ON THE FOURTH UNIVERSAL DEFINITIONS OF MYOCARDIAL INFARCTION. THE UPPER REFERENCE LIMIT (URL) OF TROPONIN, DEFINED THE 99TH PERCENTILE OF cTnI DISTRIBUTION IN A REFERENCE POPULATION, HAS BEEN CONFIRMED THE DECISION THRESHOLD FOR MS DIAGNOSIS. Performed By: #### C MP, BNP, TSH, HSTROPN #### [facility] [address] [place] [address] Dr. Emily Hercules TSHon 08-24-2021 TSH 1.614 uIU/mL Normal 0.470-4.680 [facility] Comment on above: Performed By: #### C MP, BNP, TSH, HSTROPN #### [facility] [address] [place], [place] [address] Dr. Emily Hercules TSH RANGE SEE BELOW Normal [facility] Comment on above: Result Comment: <0.3 4 UIU/ml HYPERTHYROID 0.34-5.60 UIU/ml EUTHYROID >5.60 UIU/ml HYPOTHYROID Performed By: #### C MP, BNP, TSH, HSTROPN #### [facility] [address] [place] [address] [address] Emily Hercules US KARINE DOP LEG RTon 08-24-20 21 US KARINE DOP LEG RT EXAMINATION: US [...] Date: 2021-08-24 16:22 Normal [facility] Test (Serum)on Test, Serum Negative Normal [facility] Comment on above: Performed By: #### 3 [id number] ####[facility] [address] [place] [address] CBC With Differentialon 04-28 Basophils Auto #/vol (Bld) 0.06 10*3/uL Normal 0.01-0.07 [facility] Comment on above: Performed By: #### 2 [id number] ####[facility] [address] [place] [address] Basophils/100 WBC Auto (Bld) 0.7 % Normal 0.1-1.2 [facility] Comment on above: Performed By: #### 2 [id number] ####[facility] [address] [place] [address] Eosinophils 0.51 10*3/uL High 0.04-0.50 [facility] Comment on above: Performed By: #### 2 [id number] ####[facility] [address] [place] [address] Eosinophils/100 leukocytes 6.1 % Normal 0.0-8.1 [facility] Comment on above: Performed By: #### 2 [id number] ####[facility] [address] [place] [address] Erythrocyte distribution width Auto Ratio (RBC) 13.2 % Normal 12.0-15.4 [facility] Comment on above: Performed By: #### 2 084053 ####[facility] [address] [place] [address] Erythrocytes (RBC) 4.67 10*6/uL Normal 3.85-5.10 [facility] Comment on above: Performed By: #### 2 [id number] ####[facility] [address] [place] [address] Erythrocytes (RBC) 0.0 /100{WBCs} Normal [facility] Comment on above: Performed By: #### 2 [id number] ####[facility] [address] [place] [address] Erythrocytes (RBC) 0.00 10*3/uL Normal [facility] Comment on above: Performed By: #### 2 [id number] ####[facility] [address] [place] [address] Hematocrit (HCT) 40.8 % Normal 36.5-46.6 [facility] Comment on above: Performed By: #### 2 260244 ####[facility] [address] [place] [address] Hemoglobin mass conc (Bld) 13.6 g/dL Normal 11.8-15.3 [facility] Comment on above: Performed By: #### 2 [id number] ####[facility] [address] [facility] [address] Imm Grans Absolute 0.02 10*3/uL Normal 0.00-0.21 [facility] Comment on above: Performed By: #### 2 497431 ####[facility] [address] [place] [address] Immature granulocytes #/vol (Bld) 0.2 % Normal [facility] Comment on above: Performed By: #### 2 077495 ####[facility] [address] [place] [address] Lymphocytes 2.15 10*3/uL Normal 0.40-2.84 [facility] are Comment on above: Performed By: #### 2 059546 ####[facility] [address] [place] [address] Lymphocytes/100 leukocytes 25.8 % Normal 15.7-50.5 [facility] Comment on above: Performed By: #### 2 [id number] ####[facility] [address] [place] [address] MCH 29.1 pg Normal 27.5-33.0 [facility] Comment on above: Performed By: #### 2 [id number] ####[facility] [address] [place] [address] MCHC mass conc (RBC) 33.3 g/dL Normal 30.1-35.0 [facility] Comment on above: Performed By: #### 2 590353 ####[facility] [address] [place] [address] MCV 87.4 fL Normal 85.4-100.0 [facility] Comment on above: Performed By: #### 2 326379 ####[facility] [address] [place] [address] Monocytes 0.57 10*3/uL Normal 0.25-0.83 [facility] Comment on above: Performed By: #### 2 776502 ####[facility] [address] [place] [address] Monocytes/100 leukocytes 6.9 % Normal 4.8-12.7 [facility] Comment on above: Performed By: #### 2 448235 ####[facility] [address] [place] [address] Neutrophils 5.01 10*3/uL Normal 1.95-6.85 [facility] are Comment on above: Performed By: #### 2 288373 ####[facility] [address] [place] [address] Neutrophils/100 leukocytes 60.3 % Normal 36.8-73.2 [facility] Comment on above: Performed By: #### 2 174299 ####[facility] [address] [facility] [address] Platelet mean volume (PMV) 12.0 fL Normal 9.9-12.1 [facility] Comment on above: Performed By: #### 2 109425 ####[facility] [address] [place] [address] Platelets 207 10*3/uL Normal 155-404 [facility] e Comment on above: Performed By: #### 2 [id number] ####[facility] [address] [place] [address] RDW SD 42.2 fL Normal 39.3-48.6 [facility] Comment on above: Performed By: #### 2 [id number] ####[facility] [address] [place] [address] WBC (Leukocytes) 8.3 10*3/uL Normal 4.4-9.9 [facility] Comment on above: Performed By: #### 2 087397 ####[facility] [address] [place] [address] Partial Thromboplastin Timeo n 05-10-2017 aPTT 28.4 s Normal 22.1-35.3 [facility] Comment on above: Result Comment: Luis allen note new Heparin Therapeutic range effective 02/14/17.Heparin Therapeutic Range: 71 - 97 sec Performed By: #### 3 [id number] ####[facility] [address] [place] [address] Prothrombin Timeon 7 INR Coag RelTime (PPP) 1.00 {INR} Normal 0.85-1.16 [facility] Comment on above: Result Comment: Coum vanesa Therapy:1.5 - 2.0 Low Intensity Therapy2.0 - 3.0 Moderate Intensity Therapy2.5 - 3.5 High (1) Intensity Therapy3.0 - 4.0 High (2) Intensity Therapy Performed By: #### 3 [id number] ####[facility] [address] [place] [address] Prothrombin time (PT) Coag time (PPP) 13.1 s Normal 11.3-14.5 [facility] are Comment on above: Performed By: #### 3 [id number] ####[facility] [address] [place] [address] Vital Signs Date Time Vital Sign Value Performing Clinician Facility 04-28-2025 09:49-0400 Body height 160 cm Clyde Choi DO Work Phone: [facility] 04-28-2025 09:49-0400 Body mass index (BMI) [Ratio] 35.78 kg/m2 Clyde Choi DO Work Phone: [facility] 04-28-2025 09:49-0400 Body weight 91.63 kg Clyde Choi DO Work Phone: [facility] 04-17-2025 09:13-0400 Body height 165.1 cm Clyde Choi DO Work Phone: [facility] 04-17-2025 09:13-0400 Body mass index (BMI) [Ratio] 33.61 kg/m2 Clyde Donohuefay DO Work Phone: [facility] 04-17-2025 09:13-0400 Body weight 91.63 kg Clyde Choi DO Work Phone: [facility] 04-17-2025 09:13-0400 Diastolic blood pressure 75 mm[Hg] Clyde Sangbharat DO Work Phone: [facility] 04-17-2025 09:13-0400 Systolic blood pressure 115 mm[Hg] Clyde Charanjtifabharat DO Work Phone: [facility] 04-12-2025 11:31-0400 Body temperature 98.3 [degF] Cabrera Jones MD Work Phone: [facility] 04-12-2025 11:31-0400 Diastolic blood pressure 60 mm[Hg] Cabrera Jones MD Work Phone: [facility] 04-12-2025 11:31-0400 Heart rate 60 /min Cabrera Jones MD Work Phone: [facility] 04-12-2025 11:31-0400 Respiratory rate 16 /min Cabrera Jones MD Work Phone: [facility] 04-12-2025 11:31-0400 SaO2% (BldA) [Mass fraction] 98 % Cabrera Jones MD Work Phone: [facility] 04-12-2025 11:31-0400 Systolic blood pressure 98 mm[Hg] Cabrera Jones MD Work Phone: [facility] 04-12-2025 06:00-0400 Body weight 94 kg Cabrera Jones MD Work Phone: [facility] 04-11-2025 20:00-0400 Inhaled oxygen flow rate 8 L/min Cabrera Jones MD Work Phone: [facility] 04-11-2025 12:06-0400 Body height 160.02 cm Cabrera Jones MD Work Phone: [facility] 12-24-2024 14:38-0500 Body height 160 cm Edison Ardon MD Work Phone: [facility] 12-24-2024 14:38-0500 Body mass index (BMI) [Ratio] 33.3 kg/m2 Edison Ardon MD Work Phone: [facility] 12-24-2024 14:38-0500 Body temperature 98.2 [degF] Edison Ardon MD Work Phone: [facility] 12-24-2024 14:38-0500 Body weight 85.28 kg Edison Ardon MD Work Phone: [facility] 12-24-2024 14:38-0500 Diastolic blood pressure 79 mm[Hg] Edison Ardon MD Work Phone: [facility] 12-24-2024 14:38-0500 Heart rate 89 /min Edison Ardon MD Work Phone: [facility] 12-24-2024 14:38-0500 Respiratory rate 14 /min Edison Ardon MD Work Phone: [facility] 12-24-2024 14:38-0500 SaO2% (BldA) [Mass fraction] 98 % Edison Ardon MD Work Phone: [facility] 12-24-2024 14:38-0500 Systolic blood pressure 117 mm[Hg] Edison Ardon MD Work Phone: [facility] 11-24-2024 13:51-0500 Body mass index (BMI) [Ratio] 34.72 kg/m2 Edison Ardon MD Work Phone: [facility] 11-24-2024 13:51-0500 Body weight 88.91 kg Edison Ardon MD Work Phone: [facility] Encounters Encounter Date Encounter Type Care Provider Facility Start: 06-12-2025 End: 06-12-2025 ambulatory Cabrera Jones MD Work Phone: [facility] Work Phone: Start: 06-12-2025 End: 06-12-2025 Departed Referred Cabrera Francis MD -LAB [facility] Start: 04-28-2025 End: 04-28-2025 ambulatory CLYDE CHOI [...] End: 04-12-2025 Evaluation and management of inpatient Clyde Choi DO -4 [facility] Work Phone: Start: 12-24-2024 End: 12-24-2024 Patient encounter procedure Edison Ardon MD Work Phone: [facility] Comment on above: Diaphragmatic hernia without obstruction and without gangrene (Primary Dx) Start: 12-24-2024 End: 12-24-2024 ambulatory EDISON ARDON Facility:[facility] Start: 12-24-2024 End: 12-24-2024 Subsequent hospital visit by physician [facility] (I-Stat) Radiology Comment on above: Diaphragmatic hernia without obstruction and without gangrene [K44.9] Start: 11-24-2024 End: 11-24-2024 Telephone encounter Edison Ardon MD Work Phone: [facility] Comment on above: Appointment Consult; Appointment Confirmation Request Outside [facility] Records; Received Outside Medical Records Start: 05-12-2022 End: 05-12-[address] CABRERA JONES Facility:[facility] Start: 09-20-2021 End: 09-20-[address] CABRERA JONES Facility:[facility] Start: 09-15-2021 End: 09-16-[address] CABRERA JONES Facility:[facility] Start: 09-02-2021 End: 09-03-[address] CABRERA JONES Facility:[facility] Start: 08-24-2021 End: 08-24-[address] MARCIAL BOB Facility: Start: 05-16-2017 End: 05-16-2017 Ambulatory Tito VALLE Facility:[facility] Start: 05-10-2017 Ambulatory Tito VALLE [...] Treatment Date Care Activity Detail Author Start: 06-12-2025 Bacteria identified in Urine by Culture Urine Culture [facility] Start: 06-12-2025 Urine culture [facility] Start: 04-28-2025 End: 04-28-2025 Patient encounter procedure 04/28/2025 9:30 AM EDT Office Visit [facility] [address] [place] [address] Clyde Choi DO [address] [place] [address] [facility] Start: 04-17-2025 End: 04-17-2025 Patient encounter procedure 04/17/2025 9:15 AM EDT Office Visit [facility] [address] [place] [id number] Clyde Choi DO [address] [place], [place] [id number] [facility] Start: 04-12-2025 [facility] Start: 04-11-2025 Hospital admission [facility] Start: 04-11-2025 Resection of Appendi x, Percutaneous Endoscopic Approach Resection of Appendix, Percutaneous Endoscopic Approach [facility] Start: 12-24-2024 End: 12-24-2024 Patient encounter procedure Radiology Comment on above: Hiatal Hernia Start: 06-29-2024 Covid-19 Vaccine () Covid-19 Vaccine () [facility] Start: 06-29-2024 Covid-19 Vaccine () Covid-19 Vaccine () [facility] Start: 06-29-2024 Influenza vaccination Influenza Vacc ine (#1) [facility] Start: 2023 Pneumococcal Vaccine : 50+ (1 of 1 - PCV) Pneumococcal Vaccine: 50+ (1 of 1 - PCV) [facility] Start: 2023 Screening for malign ant neoplasm of lung Lung Cancer Screening [facility] Start: 2023 Shingrix Vaccine (1 of 2) Shingrix Vaccine (1 of 2) [facility] Start: 2018 Diabetes Screening Diabetes Screenin g [facility] Start: 2018 Lipid panel Lipid Screening [facility] Start: 2018 Screening for malign ant neoplasm of colon [facility] Start: 2013 Screening for malign ant neoplasm of breast Mammogram Screening [facility] Start: 1994 Screening for malign ant neoplasm of cervix Cervical Cancer Screening [facility] Start: 1992 Hepatitis B Vaccine (1 of 3 - 19+ 3-dose series) Hepatitis B Vaccine (1 of 3 - 19+ 3-dose series) [facility] Start: 1992 Urine microalbumin profile DTaP,Tdap,Td Vaccine (1 - Tdap) [facility] Start: 1991 Anxiety Screening Anxiety Screening [facility] Start: 1991 Depression Screening Depression Scre ening [facility] Start: 1991 Hepatitis C screening Hepatitis C Sc reening [facility] Start: 1991 HIV screening HIV Screening [facility] Patient Education Know your Meds [facility] Work Phone: Patient referral [facility] Work Phone: End: 12-24-2025 XR Esophagus Views W contrast PO XR ESOPHAGRAM Radiology Routine Diaphragmatic hernia without obstruction and without gangrene 1 Occurrences starting 11/24/2024 until 12/24/2025 [facility] Work Phone: Comment on above: 1 Occurrences starti ng 11/24/2024 until 12/24/2025 Immunizations Immunization Date Immunization Notes Care Provider Emmanuel mullen 06-28-2020 influenza virus vacc ine, unspecified formulation Gi (I-Stat) [facility] Payers Date Payer Category Payer Self-pay 2018 Medicaid [id number] 2018 Medicare (Managed Care) 1.2. [id number] 2018 Unknown [facility] ANTH MEDICARE ADVANTAGE HMO [id number] 2018-Present [phone] [address] [place] [address] HMO [id number] 1973 Unknown [id number] 93 1973 Unknown [id number] 93 1973 Unknown [id number] 93 1973 Unknown [id number] 93 1973 Unknown [id number] 93 1973 Unknown [id number] 259 1973 Unknown [id number] 259 1959 Medicaid [id number] 1959 Unknown [id number] Medicare [id number] Medicare Medicare [id number] Unknown MMO [id number] Unknown [id number] 31 Unknown [id number] 31 Social History Date Type Detail Facility Start: 11-24-2024 Tobacco smoking stat [facility] Ex-smoker [facility] Start: 05-06-2001 End: 05-06-2019 History of tobacco use Current smoker [facility] Start: 05-06-2001 End: 05-06-2019 History of tobacco use Cigarette Smoker [facility] Start: 11-24-2024 End: 04-28-2025 Cigarettes smoked current (pack per day) - Reported 1.5 [facility] Start: 11-24-2024 Tobacco use and exposure Smokeless tobacco non-user [facility] Start: 11-24-2024 End: 12-24-2024 Alcoholic beverage intake Ex-drinker (finding) [facility] Start: 11-24-2024 End: 04-28-[address] [facility] National Score (1-10 0), lower number is lower risk Not on file [facility] Start: 11-24-2024 Tobacco Comment using E cig [facility] Start: 1975 Sex assigned at Not on file [facility] Tobacco smoking stat RUSTIS Tobacco smoking consumption unknown [facility] Start: 04-17-2025 Tobacco smoking stat RUSTIS Never smoked tobacco [facility] Start: 04-17-2025 Tobacco use and exposure Former smokeless tobacco user [facility] Start: 04-17-2025 End: 04-28-2025 Alcoholic beverage intake Defer [facility] Start: 04-17-2025 Tobacco Comment vape [facility] Sex Female (finding) [facility] Start: 1975 Sex Assigned At Female F [facility] Goals Date Patient Goal Desired Activity /State Functional Status Date Assessment Result Facility 04-12-2025 Functional status 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 documented in this encounter [facility] 04-17-2025 History of Presen t illness [...] PCL 04/15/2025 10:01 Attached To: GENERAL PATHOLOGY [[id number]] Orders Only on 04/15/25 with Clyde Choi DO Source Information Sonia Amaya [facility] Document History ASSESSMENT AND PLAN: Assessment/Plan Diagnoses [...] follow-ups on file. documented in this encounter [facility] 04-11-2025 Evaluation note Diagnosis Onset Date Resolution Leukocytosis resolved April 11, 2 025 11:26am Right lower quadrant pain resolved April 11, 2025 11:26am Acute appendicitis inactive March 292024 11:26am [facility] Work Phone: 1(885) 831-721203-08-2025 NoteHNO ID: [id number] Author: EDISON ARDON MD Service: ? Author Type: Physician Type: Progress Notes Filed: 01/03/2025 09:17 Note Text: I have read and reviewed the documentation and agree. I wish to add the followingI wish to add the following findings which will be communicated back to the requesting physician. Edison Ardon MD [facility] STAFF PHYSICIAN NOTE OF PERSONAL INVOLVEMENT [...] SERVICE: Dec 24, 2024 TIME OF SERVICE: [address] [place], [place] 1752203-08-2025 History of Present illness Narrative* Edison Ardon MD - 01/03/2025 9:12 AM EST I have read and reviewed the documentation and agree. I wish to add the followingI wish to add the following findings which will be communicated back to the requesting physician. Edison Ardon MD [facility] STAFF PHYSICIAN NOTE OF PERSONAL INVOLVEMENT [...] I have discussed the case and management ofthe patient's care. STAFF PHYSICIAN: Edison Ardon MD DATE OF SERVICE: Dec 24, 2024 TIME OF SERVICE: 330 PM * Heena Manjarrez MD - 12/24/2024 2:45 PM EST Images from the original note were not included. [facility] THORACIC SURGERY OUTPATIENT CONSULT NOTE Kiya Bhat [id number] Requesting Provider: Self Thoracic Physician: Edison Ardon [...] personally performed by: Duglas Manjarrez Patient-Entered Questionnaire [facility] Esophageal Questionnaire 12/23/2024 Domain Symptom Raw [...] (Range 6-30) Incomplete Incomplete [facility]25 NoteHNO ID: [id number] Author: HEENA MANJARREZ MD Service: ? Author Type: Fellow Type: Progress Notes Filed: 01/03/2025 09:17 Note Text: [facility] THORAC[facility] SURGERY OUTPATIENT CONSULT NOTE Kiya Bhat [id number] Requesting Provider: Self Thoracic Physician: Edison Ardon [...] personally performed by: Duglas Manjarrez Patient-Entered Questionnaire [facility] Esophageal Questionnaire 12/23/2024 Domain Symptom Raw [...] Incomplete (Range 6-36) Incomplete (Range 6-30) [facility] History of Present illness Narrative* Sonia Bennett, RT(R) - 12/24/2024 1:20 PM EST Radiology Service Progress Note PATIENT NAME: Kiya Bhat DATE OF SERVICE: December 24, 2024 TIME: 1:50 PM PATIENT IDENTITY VERIFICATION COMPLETED USING TWO (2) IDENTIFIERS: Name and Date of confirmedby patient verbally. FALL SCREENING: Has the patient had 2 falls in the last year or 1 fall with injury or currently using an Ambulatory Assistive Device (Walker, Cane, Wheelchair, Crutches, etc.)? No PATIENT GENDER DATA: Assigned female at . status: : No status:NO. PATIENT RELEVANT IMPLANT DATA REVIEWED: Not Applicable PATIENT PRESENTS WITH AN IMPLANTABLE OR ATTACHED PROTOTYPE ENGINEER: No RADIOLOGY DEPARTMENT: General X-ray: Exam(s) Completed: GI/ Procedure(s): Esophogram with barium contrast PERIPHERAL IV DATA: Not applicable SIGNED BY: RT Wil(R) December 24, 2024 1:50 PM documented in [facility]St[facility]-2025 NoteHNO ID: [id number] Author: SONIA BENNETT RT(R) Service: Radiology Author Type: Technologist Type: Progress [...] PATIENT PRESENTS WITH AN IMPLANTABLE OR ATTACHED PROTOTYPE ENGINEER: No RADIOLOGY DEPARTMENT: General X-ray: Exam(s) Completed: GI/ Procedure(s): Esophogram with barium contrast PERIPHERAL IV DATA: Not applicable SIGNED BY: RT Wil(R) December 24, 2024 1:50 [facility]01-27-2025 Telephone encounter Note* Telephone Encounter - Trice Louis - 11/24/2024 4:37 PM EST Patient confirmed appointment scheduled with Dr. Ardon with barium on 12/24/24 [facility] Work Phone: 1(305) 455-334301-27-2025 Miscellaneous Notes* Telephone Encounter - Trice Louis - 11/24/2024 4:37 PM EST Patient confirmed appointment scheduled with Dr. Ardon with barium on 12/24/24 * Telephone Encounter - Jenni Mg RN - 11/24/2024 1:43 PM EST Images from the original note were not [...] with diet exercise) esophagram Jenni Bartunek, RN * Telephone Encounter - Renae Holly - 11/24/2024 12:58 PM EST LOCAL PATIENT Received [facility] Staff Message from Gill Brar Kiya Bhat is former pt of Edison Ardon [...] office for scheduling. Please call pt at [phone]. Patient was informed consultation could be at [place] or [facility] [place]: No Patient Registration: Registration complete/updated: yes Insurance card(s) scanned in [place] with in the past year: No Pt's [employer] [facility] is active. Ok to communicate to pt via [employer] Now yes Medical Records: Records in [facility] (internal CC records): Yes (old) Imaging in [facility] (internal CC records): Yes (old) Care [...] for triage Renae Elliott documented in [facility]St[facility]25 Telephone encounter Note * Telephone Encounter - Renae Holly - 11/24/2024 4:04 PM EST Received outside office note (scanned) to [place] [place]. Renae Chaudhry Arm Maker [facility] Work Phone (unformatted): [phone] Miscellaneous Notes* Telephone Encounter - Richa Elliott Renae - 11/24/2024 4:04 PM EST Received outside office note (scanned) to [place]. Renae Chaudhry Arm Maker * Telephone Encounter - Richa Elliott Renae - 11/24/2024 2:12 PM EST Attempt #1 Requested Medical Records from the office of Dr. Cabrera Jones Spoke to: Jacki Phone #: [phone] Fax #: [phone] Jacki agreed to fax the last office note Renae Chaudhry November 24, 2024 2:12 PM documented in [facility] encounter[facility]01-[facility]-2025 Telephone encounter Note * Telephone Encounter - Richa Adm Renae - 11/24/2024 2:12 PM EST Attempt #1 Requested Medical Records from the office of Dr. Cabrera Jones Spoke to: Jacki Phone #: [phone] Fax #: [phone] Jacki agreed to fax the last office note Renae Chaudhry November 24, 2024 2:[address] [facility]01-27-2025 Telephone encounter Note* Telephone Encounter - Jenni Mg RN - 11/24/2024 1:43 PM EST Images from the original note were not [...] with diet exercise) esophagram Jenni Mg RN [facility]01-27-2025 Telephone encounter Note* Telephone Encounter - Renae Holly - 11/24/2024 12:58 PM EST LOCAL PATIENT Received [employer] Staff Message from Gill Brar is former pt of Edison Ardon M.D., Ph.D. by SELF Patient last seen in 2018 Patient diagnosis/Reason for consult: Diaphragmatic hernia triage process explained: Yes Patient will receive a call from Thoracic NPM after triage review with surgeon to discuss any additional testing and/or consults that will be scheduled. Pt will then receive a call from our scheduling office for scheduling. Please call pt at [phone]. Patient was informed consultation could be at [place] or [facility]: No Patient Registration: Registration complete/updated: yes Insurance card(s) scanned in [place] with in the past year: No Pt's [employer] is active. Ok to communicate to pt via [employer] [facility] yes Medical Records: Records in [facility] (internal CC records): Yes (old) Imaging in [facility] (internal CC records): Yes (old) Care Everywhere - queried yes, downloaded No Linked Outside Organizations (list): n/a OSH Records Requested: none Date: N/A Outside Hospital(s) requested records from: n/a Received: none Uploaded: N/A. Waiting on additional records: No. Missing (list): N/A OS Pathology Slides Requested: none Date: N/A Outside Hospital(s) slides requested from: n/a [facility] Radiology Imaging Requested: none Date: N/A Outside [...] Yes, Thoracic NPM for triage Renae Elliott [facility] Work Phone (unformatted): [phone] Telephone encounter Note* Telephone Encounter - Robert Gill - 11/24/2024 11:32 AM EST .RECEIVED CALL FROM: Patient PATIENT INFORMATION: Name: Kiya Bhat : 1975 (home) [phone] (cell) Email: [email or web address] Referring Provider: No referring provider defined for this encounter. Phone: N/A Fax: Requested Surgeon: Edison Ardon M.D., Ph.D. Reason for appointment/diagnosis: Diaphragmatic hernia without obstruction and without gangrene Gill Brar November 24, 2024 11:[address] [facility]01-27-2025 Miscellaneous Notes* Telephone Encounter - Gill Brar - 11/24/2024 11:32 AM EST .RECEIVED CALL FROM: Patient PATIENT INFORMATION: Name: Kiya Bhat : 1975 (home) [phone] (cell) Email: [email or web address] Referring Provider: No referring provider defined for this encounter. Phone: N/A Fax: Requested Surgeon: Edison Ardon M.D., Ph.D. Reason for appointment/diagnosis: Diaphragmatic hernia without obstruction and without gangrene Gill Brar November 24, 2024 11:32 AM documented in this encounterSt. [facility]05-04-2022 NoteChief Complaint consultation for sebaceous cyst HPI Staff 46 year old female presents on consultation from Dr. Jones for sebaceous cyst central mid back. Present greater than 1 year. Slight increase in size. Denies pain. Never opened or drained. Never been onantibiotics for this. History of Present Illness 46 [...] swallowing difficulties, no hearing loss, no ear infection(s),no nose bleeds. Cardiovascular: normal blood pressure, no [...] type 2: Mother and Brother. Heart disease: Mother.[facility] RehabilitationComment on above:Result Comment: Electronically Signed By: FRANK GALLO, Hemal Moore\Date and Time Signed: 03/01/22 16:21 EDTEvaluation note* Diagnosis Diaphragmatic hernia without obstruction and without gangrene- Primary [facility]* Diagnosis Diaphragmatic hernia without obstruction and without gangrene [facility]* Diagnosis Diaphragmatic hernia without obstruction and without gangrene- Primary [facility]* Diagnosis Other acute appendicitis- Primary documented in this encounter [facility]* Diagnosis Other acute appendicitis- Primary documented in this encounter [facility] for [facility] (narrative)* Diagnostic Procedure Only (Routine) - Authorized Specialty Diagnoses / Procedures Referred By Contac t Referred To Contact XR IMAGING Diagnoses Diaphragmatic hernia without obstruction and without gangrene Procedures XR ESOPHAGRAM RADIOLOGIC EXAM ESOPHAGUS SINGLE CONTRAST STUDY Edison Ardon MD [address] [place] [address] [place] [address] Referral ID Status Reason Start Date Expiration Date Visits Requested Visits Authorized [id number] Authorized Auto-Generat ed Referral 11/24/2024 12/24/[address] [facility] Summary Purpose Family History No Family History Records FoundNo Family History Records FoundNo Family History Records FoundNo Family History Records FoundNo Family History Records FoundNo Family History Records Found Advance Directives No Advanced Directives Records Found Advance Directive Response Recorded Date/ Time Advance Directives No May 21 6:23pm Chief Complaint and Reason for Visit Chief Complaint Admit Date acute qiana April 11, 2025 11:2 6am Unknown June 12, 2025 9: 25am Reason for Visit Admit Date Leukocytosis April 11, 2025 11:2 6am Right lower quadrant pain April 11 11:26am Acute appendicitis April 11, 2025 11:2 6am Additional Source Comments INFORMATION SOURCE (unrecogn ized section and content) DATE CREATED AUTHOR 04/24/2018 [facility] DATE CREATED AUTHOR AUTHOR'S ORGANIZ ATION 03/03/2022 [facility] DATE CREATED AUTHOR AUTHOR'S ORGANIZ ATION 05/18/2022 [facility] DATE CREATED AUTHOR AUTHOR'S ORGANIZ ATION 01/05/2025 [facility] DATE CREATED AUTHOR AUTHOR'S ORGANIZ ATION 04/29/2025 [facility] DATE CREATED AUTHOR AUTHOR'S ORGANIZ ATION 06/30/2025 [facility] Source Comments (unrecognize d section and content) In the event this informatio n is protected by the Federal Confidentiality of Alcohol and Drug Abuse Patient Records regulations: The Federal rules restrict any use of the information to criminally investigate or prosecute any alcohol or drug abuse patient.[facility] the event this information is protected by the Federal Confidentiality of Alcohol and Drug Abuse Patient Records regulations: The Federal rules restrict any use of the information to criminally investigate or prosecute any alcohol or drug abuse patient.[facility] HospitalIn the event this information is protected by the Federal Confidentiality of Alcohol and Drug Abuse Patient Records regulations: The Federal rules restrict any use of the information to criminally investigate or prosecute any alcohol or drug abuse patient.[facility] HospitalIn the event this information is protected by the Federal Confidentiality of Alcohol and Drug Abuse Patient Records regulations: The Federal rules restrict any use of the information to criminally investigate or prosecute any alcohol or drug abuse patient.[facility] HospitalIn the event this information is protected by the Federal Confidentiality of Alcohol and Drug Abuse Patient Records regulations: The Federal rules restrict any use of the information to criminally investigate or prosecute any alcohol or drug abuse patient.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 Relationship Specialty Start Date End Date Cabrera Jones MD [address] [place] [address] PCP - General Family Medicine 11/24/24 Junior Araya Jr., MD [facility] [place] [address] Referring 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/19 Insulation 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 Relationship Specialty Start Date End Date Cabrera Jones MD [address] [place] [address] PCP - General Family Medicine 11/24/24 Junior Araya Jr., MD [facility] [place] [address] Referring 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/19 Insulation Cutter Relationship Specialty Start Date End Date Cabrera Jones MD [address] [place] [address] PCP - General Family Medicine 11/24/24 Junior Araya Jr., MD [facility] [place] [address] [place] [address] Referring 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/19 Insulation Cutter Relationship Specialty Start Date End Date Cabrera Jones MD [address] [place] [address] PCP - General Family Medicine 11/24/24 Junior Araya Jr., MD [facility] [place] [address] [place] [address] Referring 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/19 Insulation Cutter Relationship Specialty Start Date End Date Cabrera Jones MD [address] [place] [address] PCP - General Family Medicine 11/24/24 Junior Araya Jr., MD [facility] [place] [address] [place] [address] Referring 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/19 Insulation Cutter Relationship Specialty Start Date End Date Cabrera Jones MD [address] [place] [address] PCP - General Family Medicine 04/14/25 Insulation Cutter Relationship Specialty Start Date End Date Cabrera Jones MD [address] [place] [address] PCP - General Family Medicine 04/14/25 Insulation Cutter Relationship Specialty Start Date End Date Cabrera Jones MD [address] [place] [address] PCP - General Family Medicine 04/14/25 Team Status: Inactive Member Role Status Dates Cabrera Jones MD Primary Care Provider Active Start: April 11, 2025 End: April 12, 2025 Clyde Choi DO Admit Provider Active Start: 2024 End: April 12, 2025 Clyde Choi DO Attending Provider Active Start : April 11, 2025 End: April 12, 2025 Team Status: Inactive Member Role Status Dates Cabrera Jones MD Attending Provider Active Sta rt: June 12, 2025 End: June 12, 2025 FOR RECORDS PERTAINING TO PATIENTS WHO ARE [...] BE BASED ON THE PRIMARY CLINICAL RECORDS. [facility] [employer] [facility]. provides no warranty or guarantee of the accuracy or completeness of information in this document.
== END 2025-07-01 10:13 | disposition home or self-care (01) ==
LOC: LAB 10:15
PROVIDERS: PCP Family Medicine; Visit Provider Family Medicine
DX: N39.0 Urinary tract infection, site not specified (principal)
CPT/HCPCS: 81001; 87086

== ENCOUNTER 2025-07-08 08:15 | Outpatient (OUT) | payer MEDICARE, MEDICAID, SELFPAY ==
--- NOTE | 2025-07-08 08:17 | US_ITS ---
The [address] [address] Patient Name: CE ALEJANDRA MRN: [id number] date: 1975 Sex: F Assigned Patient Location: [place] Current Patient Location: [place] Accession/Order Number: [id number] Exam Date: 07/08/2025 08:20 Report Date: 07/08/2025 09:42 At the request of: CABRERA VIGIL MD Procedure: US renal bladder BILATERAL RENAL AND BLADDER ULTRASOUND CLINICAL HISTORY: Blood In Urine COMPARISON: 07/31/[address] 04/11/2025 Estimation of renal size is approximately 9.7 cm on the right and 11.5 cm on the left. The kidneys are slightly lobulated and there may be some cortical scarring. There are multiple echogenic foci with twinkle artifact bilaterally correlating with renal stones seen on CT study. On the right, the largest is at the lower pole measuring 14 x 11 x 9 mm and at the superior pole measuring 13 x 7 x 7 mm. On the left, the largest stone is at the upper pole measuring 6 x 4 x 3 mm. No hydronephrosis is identified. No renal mass lesions were imaged. There is no perinephric fluid. The urinary bladder is partially distended with a volume of 95 ml. There our bilateral ureteral jets is also an echogenic focus with ringdown artifact near the ureterovesical junction on the right measuring 7 x 4 x 5 mm in size which may be a nonobstructing stone. The post void bladder residual is 15 mL. US/US renal bladder IMPRESSION: BILATERAL NEPHROLITHIASIS AND SUSPECTED NONOBSTRUCTING STONE AT THE RIGHT URETEROVESICAL JUNCTION Impression dictated by: Gaby Hutchinson M.D. 07/08/2025 9:42 AM Dictation Location: [place] [address] Electronically authenticated by: [id number] Y Date: 07/08/2025 09:42
--- OUTSIDE RECORDS SUMMARY | 2025-07-08 08:18 | XMS_ITS | CCD ---
Author Organization [facility] CliniSyma Care Team Providers [employer] 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 Name Role Phone VALLE, M L Unavailable [...] KRYSTAL, DR DONA Ashraf Admitting Unavailabl e FAZAL, DR REES Primary Care Unavailable KRYSTAL, DR DONA Ashraf Attending Unavailabl e LAURA, RUSSELL ESCOBAR Consulting Unavailable CONCHIS, NATY Consulting Unavailable FAZAL, DR REES Admitting Unavailable HOY, DR REES Attending Unavailable NATHANY, DR REES Consulting Unavailable NAHTANY, DR REES Primary Care Unavailable HOY, DR REES Admitting Unavailable HOY, DR REES Attending Unavailable HOY, DR REES Consulting Unavailable FAZAL, DR REES Primary Care Unavailable [place], DR LOREE Zimmerman Consulting Unavailable FAZAL, DR REES Primary Care Unavailable NATHANY, DR REES Admitting Unavailable FAZAL, DR REES Attending Unavailable FAZAL, DR REES Consulting Unavailable Marshal Faria MD, Junior Francis Unavailable [phone] Cabrera Jones MD Primary Care Provider [phone] EDISON ARDON Referring Unavailable CABRERA JONES Primary Care Unavailable EDISON ARDON Attending Unavailable SELF Referring Unavailable CABRERA JONES Primary Care Unavailable Unavailable Primary Care Provider UnavailCabrera Caal MD Primary Care Provider [phone] CLYDE CHOI Attending Unavailable CLYDE CHOI Attending Unavailable Cabrera Jones MD Primary Care Provider [phone] Clyde Choi DO Admit Provider Clyde Choi DO Attending Provider Cabrera Jones MD Attending Provider Cabrera Jones Attending Unavailable Cabrera Jones Admitting Unavailable Cabrera Jones Admitting Unavailable Cabrera Jones Attending Unavailable Clyde Choi Admitting Unavailable Clyde Choi Attending Unavailable Cabrera Jones Primary Care Unavailable Medications Current Medications Medication Drug Class(es) Dates Sig (Normalized) Sig (Original) [id number] 200 actuat albuterol 0.09 mg/actuat metered dose inhaler (6 sources) beta2-Adrenergic Agonist Start: 04-11-2025 take 2 puff(s) by in halation every four hours for wheezing albuterol HFA 90 mcg/act inhaler Inhale 2 puffs every 4 (four) hours if needed for wheezing Active calcium carbonate 1250 mg / cholecalciferol 200 unt oral tablet (5 sources) Vitamin D Start: 06-24-2019 take 1 tablet by mouth once daily njcbssx-okveymbdn-mibjdsb D3 (CALCIUM 500+D) 500 mg(1,250mg) -200 unit [...] Active ferrous sulfate 325 mg oral tablet (11 sources) Start: 04-11-2025 take 1 tablet by [...] Active hydrOXYzine hydrochloride 25 mg oral tablet (6 sources) Antihistamine Start: 04-11-2025 take 1 tablet by mouth every eight hours as needed ibuprofen 200 mg oral capsule (5 sources) Nonsteroidal Anti-inflammatory Drug Start: 06-24-2019 Ibuprofen 200 mg cap Take 1-2 capsules by mouth as needed (for pain). 06/24/2019 Active meloxicam 15 mg oral tablet (6 sources) Nonsteroidal Anti-inflammatory Drug Start: 04-11-2025 take [...] pantoprazole 40 mg delayed release oral tablet (7 sources) Proton Pump Inhibitor Start: 11-05-2024 take 1 tablet by mouth once daily terbinafine 250 mg oral tablet (6 sources) Allylamine Antifungal Start: 04-11-2025 take 1 tablet by mouth once daily traMADol hydrochloride 50 mg oral tablet (6 sources) Opioid Agonist Start: 04-12-2025 take 1 tablet by mouth every six hours as needed for pain Problems Active Problems Problem Classification Problem Date Documented Date Episodic/Chronic Abdominal hernia (5 sources) Diaphragmatic hernia; Translations: [Diaphragmatic hernia without obstruction or gangrene] Onset: 12-24-2024 11-24-2024 Episodic Abdominal pain (5 sources) Right lower quadrant pain; Translations: [Right lower quadrant pain] Onset: 04-11-2025 04-20-2025 Episodic Anxiety disorders (2 sources) Obsessive-compulsive disorder, unspecified; Translations: [Post-traumatic stress disorder, unspecified] Onset: 08-26-2021 Chronic Appendicitis and other appendiceal conditions (14 sources) Acute appendicitis; Translations: [Other acute appendicitis without perforation or gangrene] Onset: 04-11-2025 04-17-2025 Episodic Asthma (1 source) Asthma Onset: 05-16-2017 Diseases of white blood cells (5 sources) Leukocytosis; Translations: [Elevated white blood cell [...] W/AND (SUSP) EXPOS COVID-19] Onset: 08-26-2021 Unclassified (4 sources) Call office on Sunday morning to [...] 08-26-2021 Episodic Other aftercare (1 source) Other intermediate project manager (current) drug therapy; Translations: [OTH INTERNATIONAL RELATIONS TEACHER CURRENT DRUG THERAPY] Onset: 08-26-2021 Episodic [...] related tissues; Translations: [FAM HX OTH MAL FBAIOLA LYMPH HEMATPOETC] Onset: 09-24-2021 Episodic Residual codes; [...] Value Interpretation Reference Range Facility Urine Cultureon 07-01-2025 Bacteria identified Cx Nom (U) No Growth 2 Days PERFORMED BY: [address] [address] PATHOLOGIST ANIMAL HEALTH TECHNICIAN ALISA GOMEZ M.D. Normal [facility] Comment on above: Performed By: #### C UU #### [address] [place] [address] [place] Urine Cultureon 06-12-2025 Bacteria identified Cx Nom (U) ORGANISM: Escherichia coli (O:ESCCOL) [place] Count >100,000 Aerobic VAHE Charge (NMIC56) ---- [...] RESISTANT TO ALL B-LACTAM DRUGS. PERFORMED BY: [place] [address] PATHOLOGIST ANIMAL HEALTH TECHNICIAN ALISA GOMEZ M.D. Normal [facility] Comment on above: Performed By: #### C UU #### [address] Urine cultureOrdered By: Steffen Jones on 06-12-2025 Bacteria identified Cx Nom (U) Escherichia coli Abnormal [facility] GLUCOSE POCT GLUCOMETERSon 0 04-14-2025 Glucose [Mass/Vol] 109 mg/dL [facility] Comment on above: Random Glucose Refer ence Range is dependent on time and content of last meal. Glucose of more than 200 mg/dL in a nonstressed, ambulatory subject supports the diagnosis of Diabetes Mellitus. [facility] Basophils [#/volume] in Bloo d by Automated countOrdered By: Clyde Choi on 04-12-2025 Basophils (Bld) [#/Vol] 0.0 10*3/uL Normal 0.0-0.2 [facility] Comment on above: Result Comment: PERF ORMED BY: [address] [place] [address] PATHOLOGIST ANIMAL HEALTH TECHNICIAN ALISA GOMEZ M.D. Performed By: #### C BC #### [facility] [address] Basophils/100 leukocytes in Blood by Automated countOrdered By: Clyde Choi on 04-12-2025 Basophils/100 WBC (Bld) 0.3 % Normal . [facility] Comment on above: Performed By: #### C BC #### [facility] [address] CBC W Auto Differential pane l (Bld)on 04-12-2025 Basophils (Bld) [#/Vol] 0 10*3/uL 0.0 - 0.2 10*3/uL [facility] Basophils/100 WBC Manual cnt (Syn fld) 0.3 % . [facility] Eosinophils (Bld) [#/Vol] 0.1 10*3/uL 0.0 - 0.45 10*3/uL [facility] Eosinophils/100 WBC Manual cnt (Syn fld) 0.6 % . [facility] Erythrocyte distribution width (RBC) [Ratio] 12.8 % 11.9 - 15.3 % [facility] Hematocrit (Bld) [Volume fraction] 37.1 % 34.0 - 46.4 % [facility] Hemoglobin (Bld) [Mass/Vol] 12.6 g/dL 11.8 - 15.4 g/dL [facility] Interpretation and review of laboratory results Abnormal [facility] Lymphocytes (Bld) [#/Vol] 1.7 10*3/uL 1.00 - 4.8 10*3/uL [facility] Lymphocytes/100 WBC Manual cnt (Syn fld) 15.3 % . [facility] MCH (RBC) [Entitic mass] 30.3 pg 24.7 - 34.3 pg [facility] MCHC (RBC) [Mass/Vol] 34 g/dL 32.0 - 35.0 g/dL [facility] MCV (RBC) [Entitic vol] 89 fL 80 - 100 fL [facility] Monocytes (Bld) [#/Vol] 0.6 10*3/uL 0.0 - 0.8 10*3/uL [facility] Monocytes+Macrophage s/100 WBC Manual cnt (Syn fld) 5.1 % . [facility] Neutrophils (Bld) [#/Vol] 8.6 10*3/uL High 1.8 - 7.7 10*3/uL [facility] Neutrophils/100 WBC Manual cnt (Syn fld) 78.7 % . [facility] NRBC 0.1 /100{WBC} 0 - 0.5 /100{WBC} [facility] Platelet mean volume (Bld) [Entitic vol] 9.9 fL 6.3 - 10.7 fL [facility] Platelets (Bld) [#/Vol] 148 10*3/uL Low 150 - 450 10*3/uL [facility] RBC LM.HPF (Urine sed) [#/Area] 4.17 10*6/uL 3.60 - 5.00 10*6/uL [facility] WBC (Bld) [#/Vol] 10.9 10*3/uL 3.8 - 11.6 10*3/uL [facility] WBC LM.HPF (Urine sed) [#/Area] 10.9 10*3/uL 3.8 - 11.6 10*3/uL [facility] Complete Blood Count Auto Di ffon 04-12-2025 Mean Corpuscular HGB Conc 34.0 g/dL Normal 32.0-35.0 [facility] Comment on above: Performed By: #### C BC #### [facility] [address] NRBC% 0.1 /100{WBC} Normal 0-0.5 [facility] Comment on above: Performed By: #### C BC #### [place] [address] [place] Eosinophils [#/volume] in Bl ood by Automated countOrdered By: Clyde Choi on 04-12-2025 Eosinophils (Bld) [#/Vol] 0.1 10*3/uL Normal 0.0-0.45 [facility] Comment on above: Performed By: #### C BC #### [place] [address] [place] Eosinophils/100 leukocytes i n Blood by Automated countOrdered By: Clyde Choi on 04-12-2025 Eosinophils/100 WBC (Bld) 0.6 % Normal . [facility] Comment on above: Performed By: #### C BC #### [address] Erythrocyte distribution wid th [Ratio] by Automated countOrdered By: Clyde Choi on 04-12-2025 Erythrocyte distribution width (RBC) [Ratio] 12.8 % Normal 11.9-15.3 [facility] Comment on above: Performed By: #### C BC #### [address] Erythrocytes [#/volume] in B lood by Automated countOrdered By: Clyde Choi on 04-12-2025 RBC (Bld) [#/Vol] 4.17 10*6/uL Normal 3.60-5.00 [facility] Comment on above: Performed By: #### C BC #### [address] Hematocrit [Volume Fraction] of Blood by Automated countOrdered By: Clyde Choi on 04-12-2025 Hematocrit (Bld) [Volume fraction] 37.1 % Normal 34.0-46.4 [facility] Comment on above: Performed By: #### C BC #### [address] Hemoglobin [Mass/volume] in BloodOrdered By: Clyde Choi on 04-12-2025 Hemoglobin (Bld) [Mass/Vol] 12.6 g/dL Normal 11.8-15.4 [facility] Comment on above: Performed By: #### C BC #### [address] Leukocytes [#/volume] correc mark for nucleated erythrocytes in Blood by Automated counOrdered By: Clyde Choi on 04-12-2025 WBC corrected for nucl RBC Auto (Bld) [#/Vol] 10.9 10*3/uL 3.8-11.6 [facility] Leukocytes [#/volume] in Blo od by Automated countOrdered By: Clyde Choi on 04-12-2025 WBC (Bld) [#/Vol] 10.9 10*3/uL Normal 3.8-11.6 [facility] Comment on above: Performed By: #### C BC #### [address] Lymphocytes [#/volume] in Bl ood by Automated countOrdered By: Clyde Choi on 04-12-2025 Lymphocytes (Bld) [#/Vol] 1.7 10*3/uL Normal 1.00-4.8 [facility] Comment on above: Performed By: #### C BC #### [address] Lymphocytes/100 leukocytes i n Blood by Automated countOrdered By: Clyde Choi on 04-12-2025 Lymphocytes/100 WBC (Bld) 15.3 % Normal . [facility] Comment on above: Performed By: #### C BC #### [place] [address] [place] MCH [Entitic mass] by Automa mark countOrdered By: Clyde Choi on 04-12-2025 MCH (RBC) [Entitic mass] 30.3 pg Normal 24.7-34.3 [facility] Comment on above: Performed By: #### C BC #### [address] MCHC Auto (RBC) [Mass/Vol]Or dered By: Clyde Choi on 04-12-2025 MCHC (RBC) [Mass/Vol] 34.0 g/dL 32.0-35.0 [facility] MCV [Entitic volume] by Auto mated countOrdered By: Clyde Choi on 04-12-2025 MCV (RBC) [Entitic vol] 89.0 fL Normal 80-100 [facility] Comment on above: Performed By: #### C BC #### [place] [address] [place] Monocytes [#/volume] in Bloo d by Automated countOrdered By: Clyde Choi on 04-12-2025 Monocytes (Bld) [#/Vol] 0.6 10*3/uL Normal 0.0-0.8 [facility] Comment on above: Performed By: #### C BC #### [place] [address] [place] Monocytes/100 leukocytes in Blood by Automated countOrdered By: Clyde Choi on 04-12-2025 Monocytes/100 WBC (Bld) 5.1 % Normal . [facility] Comment on above: Performed By: #### C BC #### [place] [address] [place] Neutrophils [#/volume] in Bl ood by Automated countOrdered By: Clyde Choi on 04-12-2025 Neutrophils (Bld) [#/Vol] 8.6 10*3/uL High 1.8-7.7 [facility] Comment on above: Performed By: #### C BC #### [place] [address] [place] Neutrophils/100 leukocytes i n Blood by Automated countOrdered By: Clyde Choi on 04-12-2025 Neutrophils/100 WBC (Bld) 78.7 % Normal . [facility] Comment on above: Performed By: #### C BC #### [place] [address] [place] Nucleated erythrocytes [Pres ence] in Blood by Automated countOrdered By: Clyde Choi on 04-12-2025 Nucleated RBC Auto Ql (Bld) 0.1 /100{WBC} 0-0.5 [facility] Platelet mean volume [Entiti c volume] in Blood by Automated countOrdered By: Clyde Choi on 04-12-2025 Platelet mean volume (Bld) [Entitic vol] 9.9 fL Normal 6.3-10.7 [facility] Comment on above: Performed By: #### C BC #### [facility] [address] Platelets [#/volume] in Bloo d by Automated countOrdered By: Clyde Choi on 04-12-2025 Platelets (Bld) [#/Vol] 148 10*3/uL Low 150-450 [facility] Comment on above: Performed By: #### C BC #### [facility] [address] Capillary blood glucose juan r urement by glucometer (mass/volume)Ordered By: Clyde Choi on 04-11-2025 Glucose [Mass/Vol] 109 mg/dL Normal [facility] Comment on above: Random Glucose Refer ence Range is dependent on time and content of last meal. Glucose of more than 200 mg/dL in a nonstressed, ambulatory subject supports the diagnosis of Diabetes Mellitus. Result Comment: [place] Glucose Reference Range is dependent on time and content of last meal. Glucose of more than 200 mg/dL in a nonstressed, ambulatory subject supports the diagnosis of Diabetes Mellitus. PERFORMED BY: [facility] [address] [facility] [place] [address] PATHOLOGIST ANIMAL HEALTH TECHNICIAN ALISA GOMEZ M.D. Performed By: #### G TERE #### Point of Care testing , Jesus 04-11-2025 L - -------- Specimen: [id number] Received: 04/13/25 Status: NIDA Meade Num: [id number] Spec Type: Surgical Subm Dr: Clyde Choi DO Tissues: A Appendix - Other than Incidental (APPENDIX) Procedures: HE/2, Gross/Micro L3 -------- Age/ Patient Sex Location Account Attending Physician -------- Kiya Bhat 49/F 4P [id number] Clyde Choi DO -------- SPEC NUM: [id number] RECD: 04/13/25 STATUS: NIDA RE NUM: [id number] CIERA: 04/11/25-[address]: Clyde Choi DO ENTERED: 04/13/25 [facility] DR: VICKIE TYPE: Surgical DEPT: S ENTERED BY: [id number] RECV BY: [id number] ORDERED: HE/2, Gross/Micro L3 ORDERED: HE/2, Gross/Micro [...] distal tip submitted in A2. (2, ss, [id number] A) CPT Codes 58628 -------- -------- Specimen: [id number] Received: 04/13/25 Status: NIDA Meade Num: [id number] Spec Type: Surgical Subm Dr: Clyde Choi, Tissues: A Appendix - Other than Incidental (APPENDIX) Procedures: HE/2, Gross/Micro L3 -------- Patient: Kiya Bhat [id number] (Continued) -------- Signed (signature on file) Jagdish Reyes MD 04/14/25 1512 Normal [facility] CNOVtalia 12-24-2024 CNOV Office Visit (THORORESTES ) OCTAVIO BHATYA ([id number]) 1975 F Date Time Provider Department 12/24/24 2:15 PM EDISON ARDON During your visit today, we recorded the following information about you: Temperature Pulse Respiration Blood pressure 98.2 degrees 89/minute 14/minute 117/79 Weight Height 85.3 kg 1.6 m Heena Manjarrez MD 01/03/2025 9:17 AM Signed [facility] THORAC[facility] SURGERY OUTPATIENT CONSULT NOTE Kiya Bhat [id number] Requesting Provider: Self Thoracic Physician: Edison Ardon [...] personally performed by: Duglas Manjarrez Patient-Entered Questionnaire [facility] Esophageal Questionnaire 12/23/2024 Domain Symptom Raw Score [...] the following (more content not included)... Normal [facility] XR ESOPHAGRAMon 12-24-2024 XR ESOPHAGRAM * [...] with organoaxial orientation. No demonstrated gastroesophageal reflux. Magician/Illusionist: [facility] Transcribe Date/Time: Dec 24 2024 2:30P Dictated by : ALANNA FOSTER MD This examination was interpreted and the report reviewed and electronically signed by: LOREE VALDEZ MD on Dec 24 2024 3:55PM EST [id number] Normal [facility] XR Esophagus Views W contras t Thad 12-24-2024 IMPRESSION: Large hiatal hernia (type III) with organoaxial orientation. No demonstrated gastroesophageal reflux. Magician/Illusionist: [facility] Transcribe Date/Time: Dec 24 2024 [...] with organoaxial orientation. No demonstrated gastroesophageal reflux. Magician/Illusionist: [facility] Transcribe Date/Time: Dec 24 2024 2:30P Dictated by : ALANNA FOSTER MD This examination was interpreted and the report reviewed and electronically signed by: LOREE VALDEZ MD on Dec 24 2024 3:55PM EST [facility] Radiology Study observation (narrative) [facility] XR Esophagus Views W jhonatan berkowitz [place] By: [facility] Provider on 12-24-2024 [facility] Thiago 11-24-2024 CNPN Telephone (KATE) KIYA BHAT ([id number]) 1975 F Date Time Provider Department 11/24/24 EDISON ARDON During your visit today, we recorded the following information about you: Weight 88.9 kg Renae Holly 11/24/2024 1:28 PM Signed LOCAL PATIENT Received valuescope Staff Message from Gill Brar is former [...] office for scheduling. Please call pt at [phone]. Patient was informed consultation could be at [place] or [facility] [place]: No Patient Registration: Registration complete/updated: yes Insurance card(s) scanned in [facility] with in the past year: No Pt's [employer] is active. Ok to communicate to pt via [employer] yes Medical Records: Records in [facility] (internal CC records): Yes (old) Imaging in [facility] (internal [facility] records): Yes (old) Care [...] to: Yes, Thoracic NPM for triage Renae Chaudhry Adm Jenni Mg RN 11/24/2024 4:13 PM Addendum Thoracic Surgery [...] Reason for Visit: Consult [173] Appointment Confirmation [1195] Primary Visit Diagnosis:Diaphragmat ic hernia without obstruction and without gangrene [K44.9] Order(s):XR ESOPHAGRAM [1937489] Order #: [id number] FUTURE Prescriptions as of 11/24/2024 - multivitamin [...] 1 tablet by mouth once daily. - zoethhz-zmxmuqwzk-rax dunaway D3 (CALCIUM 500+D) 500 mg(1,250mg) -200 unit per tablet Take 1 tablet by mouth once daily. - Ibuprofen 200 mg cap (more content not included)... Normal [facility] CNPN Telephone (THORMN) KIYA BHAT ([id number]) 1975 F Date Time Provider Department 11/24/24 EDISON ARDON During your visit today, we recorded the following information about you: Renae Holly 11/24/2024 2:15 PM Signed Attempt #1 Requested Medical Records from the office of Dr. Cabrera Jones Spoke to: Jacki Phone #: [phone] Fax #: [phone] Jacki agreed to fax the last office note Renae Elliott November 24, 2024 2:12 PM Renae Holly 11/24/2024 4:06 PM Signed Received outside office note (scanned) to [facility]. Renae Chaudhry Clay Worker Allergies As of Date: 11/24/2024 (No Known Allergies) Date Reviewed: 10/08/2019 Reviewed by: Darya Tony (Sara) - Fully Assessed Reason for Visit: Request Outside Medical Records [3575] Received Outside Medical Records [3576] Prescriptions as [...] 1 tablet by mouth once daily. - qjsqstk-zxcflzpwq-xyf dunaway D3 (CALCIUM 500+D) 500 mg(1,250mg) -200 unit per tablet Take 1 tablet by mouth once daily. - Ibuprofen 200 mg cap Take 1-2 capsules by mouth as needed (for pain). Problem List As Of Date: 11/24/2024 (None) Encounter Status:Closed by RENAE HOLLY [facility] K[facility] ([id number]) 1975 F Date Time Provider Department 11/24/24 EDISON ARDON During your visit today, we recorded the following information about you: Gill Brar 11/24/2024 11:33 AM Signed .RECEIVED CALL FROM: Patient PATIENT INFORMATION: Name: Kiya Bhat : 1975 (home) [phone] (cell) Email: [email or web address] Referring Provider: No referring provider defined for [...] 1 tablet by mouth once daily. - gyqckyo-dfgkvjxwu-jrs dunaway D3 (CALCIUM 500+D) 500 mg(1,250mg) -200 unit per tablet Take 1 tablet by mouth once daily. - Ibuprofen 200 mg cap Take 1-2 capsules by mouth as needed (for pain). Problem List As Of Date: 11/24/2024 (None) Encounter Status:Closed by GILL BRAR on 11/24/24 Normal [facility] Covid-19 PCR ([facility])on 04-28 SARS-CoV-2 (COVID-19) RNA SUKHWINDER+probe Ql (Unsp spec) Not detected Normal NOT DETECTED [facility] Comment on above: Result Comment: This test is not yet approved or cleared by the [place] FDA. When there are no FDA-approved or cleared tests available, and other criteria are met, FDA can make tests available under an emergency access mechanism called an Emergency Use Authorization (EUA). The EUA for this test is supported by the [place] of Health and Human Service's (HHS's) declaration [...] #### C MP, BNP, TSH, HSTROPN #### [facility] [address] [address] [address] Emily Hercules Facesheeton 03-02-2022 Facesheet [id number] .00CD:127 Normal [facility] Physician Referralon 022 Physician Referral [id number]. 00CD:127 Normal [facility] Covid-19 PCR ([facility])on 08-30 SARS-CoV-2 (COVID-19) RNA SUKHWINDER+probe Ql (Unsp spec) Not detected Normal NOT DETECTED [facility] Comment on above: Result Comment: This test is not yet approved or cleared by the [place] FDA. When there are no FDA-approved or cleared tests available, and other criteria are met, FDA can make tests available under an emergency access mechanism called an Emergency Use Authorization (EUA). The EUA for this test is supported by the [place] of Health and Human Service's (HHS's) [...] consistent with SARS-CoV-2. Performed By: #### C VDTBH #### [facility] [address] [address] [address] Emily Hercules MG MAMM SCREEN 3D SHELLY CADon 09-15-2021 MG MAMM SCREEN 3D SHELLY CAD Patient: KIYA BHAT Exam Date: 09/15/2021 : 1975 Gender:F Ordering : DR CABRERA JONES . Admission #: [id number] Family : Order #: [id number] CLICK HERE TO VIEW EXAM RADIOLOGY REPORT PROCEDURE: MAMMOGRAM SCREENING 3D BILATERAL CAD COMPARISON: None. INDICATIONS: Screening mammography Calculator Name NCI Breast Cancer Risk Assessment Tool 5 Year Breast Cancer Risk 0.70% Lifetime Breast Cancer Risk 6.70% Personal Breast Cancer No Personal Ovarian Cancer No Treatments None Family Cancers Grandmother-maternal with leukemia cancer at age 38. LOCATION: [facility] BREAST COMPOSITION: Scattered areas fibroglandular [...] MD on 09/15/2021 at 11:59 Normal [facility] FSHon 09-03-2021 FSH 8.8 mIU/mL Normal [facility] Comment on above: Result Comment: Adul t Female: Follicular phase 3.5 - 12.5 Ovulation phase 4.7 - 21.5 Luteal phase 1.7 - 7.7 Postmenopausal 25.8 - 134.8 Performed By: #### L [facility] #### [facility] [address] [address] [address] Emily Hercules INSULINon 09-03-2021 Insulin 19.4 uIU/mL Normal 2.6-24.9 [facility] Comment on above: Performed By: #### C MP, BNP, TSH, HSTROPN #### [facility] [address] [address] [address] Emily Hercules CBC AUTO DIFFon 09-02-2021 BASO # 0.1 103/ul Normal 0.0-0.1 [facility] Comment on above: Performed By: #### C BC #### [facility] [address] [place] [address] Dr. Emily Hercules Basophils/100 WBC (Bld) 0.7 % Normal 0.2-2.0 [facility] Comment on above: Performed By: #### C BC #### [facility] [address] [place] [address] Dr. Emily Hercules EO # 0.3 103/ul Normal 0.0-0.7 [facility] Comment on above: Performed By: #### C BC #### [facility] [address] [place] [address] Dr. Emily Hercules Eosinophils/100 WBC (Bld) 3.8 % Normal 0.9-7.0 [facility] Comment on above: Performed By: #### C BC #### [facility] [address] [place] [address] Dr. Emily Hercules Erythrocyte distribution width (RBC) [Ratio] 13.6 % Normal 11.0-15.0 [facility] Comment on above: Performed By: #### C BC #### [facility] [address] [place] [address] Dr. Emily Hercules Hematocrit (Bld) [Volume fraction] 42.6 % Normal 36.0-48.0 [facility] Comment on above: Performed By: #### C BC #### [facility] [address] [place] [address] Dr. Emily Hercules Hemoglobin (Bld) [Mass/Vol] 14.5 g/dL Normal 12.0-16.0 [facility] Comment on above: Performed By: #### C BC #### [facility] [address] [place] [address] Dr. Emily Hercules IG # 0.08 10e3/ul Critically high 0.00-0.03 [facility] Comment on above: Performed By: #### C BC #### [facility] [address] [place] [address] Dr. Emily Hercules IG % 1.0 % Critically high 0.0-0.5 [facility] Comment on above: Performed By: #### C BC #### [facility] [address] [place] [address] Dr. Emily Hercules LYMPH # 2.2 103/ul Normal 1.2-3.8 [facility] Comment on above: Performed By: #### C BC #### [facility] [address] [place] [address] Dr. Emily Hercules Lymphocytes/100 WBC (Bld) 27.4 % Normal 20.5-60.0 [facility] Comment on above: Performed By: #### C BC #### [facility] [address] [place] [address] Dr. Emily Hercules MANUAL DIFF REQ NO Normal [facility] Comment on above: Performed By: #### C BC #### [facility] [address] [place] [address] Dr. Emily Hercules MCH (RBC) [Entitic mass] 30.2 pg Normal 26.7-34.0 [facility] Comment on above: Performed By: #### C BC #### [facility] [address] [place] [address] Dr. Emily Hercules MCHC (RBC) [Mass/Vol] 34.0 g/dL Normal 29.9-35.2 [facility] Comment on above: Performed By: #### C BC #### [facility] [address] [place] [address] Dr. Emily Hercules MCV (RBC) [Entitic vol] 88.8 fL Normal 81.0-99.0 [facility] Comment on above: Performed By: #### C BC #### [facility] [address] [place] [address] Dr. Emily Hercules MONO # 0.5 103/ul Normal 0.3-0.8 [facility] Comment on above: Performed By: #### C BC #### [facility] [address] [place] [address] Dr. Emily Hercules Monocytes/100 WBC (Bld) 6.2 % Normal 1.7-12.0 [facility] Comment on above: Performed By: #### C BC #### [facility] [address] [place] [address] Dr. Emily Hercules NEUT # 4.9 103/ul Normal 1.4-6.5 [facility] Comment on above: Performed By: #### C BC #### [facility] [address] [place] [address] Dr. Emily Hercules Neutrophils/100 WBC (Bld) 60.9 % Normal 43.0-75.0 [facility] Comment on above: Performed By: #### C BC #### [facility] [address] [place] [address] Dr. Emily Hercules Platelet mean volume (Bld) [Entitic vol] 11.6 fL Normal 9.5-13.5 [facility] Comment on above: Performed By: #### C BC #### [facility] [address] [place] [address] Dr. Emily Hercules PLT 180 103/ul Normal 150-450 [facility] Comment on above: Performed By: #### C BC #### [facility] [address] [place] [address] Dr. Emily Hercules RBC 4.80 106/ul Normal 4.20-5.40 [facility] Comment on above: Performed By: #### C BC #### [facility] [address] [place] [address] Dr. Emily Hercules WBC 8.1 103/ul Normal 4.0-11.0 [facility] Comment on above: Performed By: #### C BC #### [facility] [address] [place] [address] Dr. Emily Hercules FREE THYROXINE INDEX T7on FTI 3.47 Normal [facility] Comment on above: Performed By: #### T 7, CMP, LIPID, TSH #### [facility] [address] [place] [address] Dr. Emily Hercules T3U 35.0 % Normal 23.5-40.5 [facility] Comment on above: Performed By: #### T 7, CMP, LIPID, TSH #### [facility] [address] [address] [address] Emily Hercules T4 [Mass/Vol] 9.90 ug/dL Normal 5.53-11.00 [facility] Comment on above: Performed By: #### T 7, CMP, LIPID, TSH #### [facility] [address] [address] [address] Emily Hercules GLYCOHEMOGLOBIN A1Con 2020 ADA RECOMMENDATION ADA THERAPEUTIC TARGET 6.0 - 7.0 ACTION SUGGESTED > 7.0 Normal [facility] Comment on above: Performed By: #### C MP, BNP, TSH, HSTROPN #### [facility] [address] [address] [address] Emily Hercules Glucose [Mass/Vol] 114 mg/dL Normal [facility] Comment on above: Performed By: #### C MP, BNP, TSH, HSTROPN #### [facility] [address] [address] [address] Emily Hercules HbA1c (Bld) [Mass fraction] 5.6 % Normal <=6.0 [facility] Comment on above: Performed By: #### C MP, BNP, TSH, HSTROPN #### [facility] [address] [address] [address] Emily Hercules IRONon 09-02-2021 Iron [Mass/Vol] 111.0 ug/dL Normal 37.0-170.0 [facility] Comment on above: Performed By: #### C MP, BNP, TSH, HSTROPN #### [facility] [address] [place] [address] Dr. Emily Hercules LIPID PROFILEon 09-02-2021 CHOL-HDL RATIO NORM SEE BELOW Normal [facility] Comment on above: Result Comment: 3.3 - 4.4 LOW RISK 4.4 - 7.1 AVERAGE RISK 7.1 - 11.0 MODERATE RISK >11.0 HIGH RISK Performed By: #### C MP, BNP, TSH, HSTROPN #### [facility] [address] [place] [address] Dr. Emily Hercules Cholesterol [Mass/Vol] 183 mg/dL Normal <=200 [facility] Comment on above: Performed By: #### C MP, BNP, TSH, HSTROPN #### [facility] [address] [address] [address] Emily Hercules Cholesterol in HDL [Mass/Vol] 43 mg/dL Normal [facility] Comment on above: Performed By: #### C MP, BNP, TSH, HSTROPN #### [facility] [address] [address] [address] Emily Hercules Cholesterol in LDL [Mass/Vol] 109.0 mg/dL Normal [facility] Comment on above: Performed By: #### C MP, BNP, TSH, HSTROPN #### [facility] [address] [place] [address] Dr. Emily Hercules Cholesterol.total/Ch olesterol in HDL [Mass ratio] 4.3 {ratio} Normal [facility] Comment on above: Performed By: #### C MP, BNP, TSH, HSTROPN #### [facility] [address] [address] [address] Emily Hercules HDL NORMAL > or = 60 mg/dl - LO W CARDIOVASCULAR RISK <40 mg/dl - HIGH CARDIOVASCULAR RISK Normal [facility] Comment on above: Performed By: #### C MP, BNP, TSH, HSTROPN #### [facility] [address] [address] [address] Emliy Hercules LDL CALC NORMAL SEE BELOW Normal [facility] Comment on above: Result Comment: <100 mg/dl OPTIMAL 100 - 129 mg/dl NEAR OR ABOVE OPTIMAL 130 - 159 mg/dl BORDERLINE HIGH 160 - 189 mg/dl HIGH >190 mg/dl VERY HIGH Performed By: #### C MP, BNP, TSH, HSTROPN #### [facility] [address] [address] [address] Emily Hercules Triglyceride [Mass/Vol] 155 mg/dL Critically high <=150 [facility] Comment on above: Performed By: #### C MP, BNP, TSH, HSTROPN #### [facility] [address] [address] [address] Emily Hercules VLDL CALC 31.0 mg/dL Normal [facility] Comment on above: Performed By: #### C MP, BNP, TSH, HSTROPN #### [facility] [address] [address] [address] Emily Hercules PROF 14(COMP METB)on 021 Albumin [Mass/Vol] 3.8 g/dL Normal 3.5-5.0 [facility] Comment on above: Performed By: #### T 7, CMP, LIPID, TSH #### [facility] [address] [address] [address] Emily Hercules Albumin/Globulin [Mass ratio] 1.1 {ratio} Normal [facility] Comment on above: Performed By: #### T 7, CMP, LIPID, TSH #### [facility] [address] [address] [address] Emily Hercules ALP [Catalytic activity/Vol] 57 U/L Normal 38-126 [facility] Comment on above: Performed By: #### T 7, CMP, LIPID, TSH #### [facility] [address] [address] [address] Emily Hercules ALT [Catalytic activity/Vol] 57 U/L Critically high 9-52 [facility] Comment on above: Performed By: #### T 7, CMP, LIPID, TSH #### [facility] [address] [address] [address] Emily Hercules Anion gap [Moles/Vol] 11.7 mmol/L Normal [facility] Comment on above: Performed By: #### T 7, CMP, LIPID, TSH #### [facility] [address] [address] [address] Emily Hercules AST [Catalytic activity/Vol] 35 U/L Normal 14-36 [facility] Comment on above: Performed By: #### T 7, CMP, LIPID, TSH #### [facility] [address] [address] [address] Emily Hercules Bilirubin [Mass/Vol] 0.7 mg/dL Normal 0.2-1.3 [facility] Comment on above: Performed By: #### T 7, CMP, LIPID, TSH #### [facility] [address] [address] [address] Emily Hercules Calcium [Mass/Vol] 8.8 mg/dL Normal 8.4-10.2 [facility] Comment on above: Performed By: #### T 7, CMP, LIPID, TSH #### [facility] [address] [place] [address] Dr. Emily Hercules Chloride [Moles/Vol] 105 mmol/L Normal 98-107 [facility] Comment on above: Performed By: #### T 7, CMP, LIPID, TSH #### [facility] [address] [place] [address] Dr. Emily Hercules CO2 [Moles/Vol] 26.1 mmol/L Normal 22.0-30.0 [facility] Comment on above: Performed By: #### T 7, CMP, LIPID, TSH #### [facility] [address] [place] [address] Dr. Emily Hercules Creatinine [Mass/Vol] 1.34 mg/dL Critically high 0.52-1.04 [facility] Comment on above: Performed By: #### T 7, CMP, LIPID, TSH #### [facility] [address] [place] [address] Dr. Emily Hercules EGFR-AF MALAGASY 51 mL/min/1.73m2 Critically low >=60 [facility] Comment on above: Performed By: #### T 7, CMP, LIPID, TSH #### [facility] [address] [place] [address] Dr. Emily Hercules EGFR-NON AF MALAGASY 42 mL/min/1.73m2 Critically low >=60 [facility] Comment on above: Performed By: #### T 7, CMP, LIPID, TSH #### [facility] [address] [place] [address] Dr. Emily Hercules Globulin (S) [Mass/Vol] 3.4 g/dL Normal [facility] Comment on above: Performed By: #### T 7, CMP, LIPID, TSH #### [facility] [address] [address] [address] Emily Hercules Glucose [Mass/Vol] 92 mg/dL Normal 74-106 [facility] Comment on above: Performed By: #### T 7, CMP, LIPID, TSH #### [facility] [address] [address] [address] Emily Hercules Potassium [Moles/Vol] 3.8 mmol/L Normal 3.4-5.0 [facility] Comment on above: Performed By: #### T 7, CMP, LIPID, TSH #### [facility] [address] [address] [address] Emily Hercules Protein [Mass/Vol] 7.2 g/dL Normal 6.1-8.2 [facility] Comment on above: Performed By: #### T 7, CMP, LIPID, TSH #### [facility] [address] [address] [address] Emily Hercules Sodium [Moles/Vol] 139 mmol/L Normal 137-145 [facility] Comment on above: Performed By: #### T 7, CMP, LIPID, TSH #### [facility] [address] [address] [address] Emily Hercules Urea nitrogen [Mass/Vol] 21.0 mg/dL Critically high 7.0-17.0 [facility] Comment on above: Performed By: #### T 7, CMP, LIPID, TSH #### [facility] [address] [address] [address] Emily Hercules Urea nitrogen/Creatinine [Mass ratio] 15.7 mg/mg Normal [facility] Comment on above: Performed By: #### T 7, CMP, LIPID, TSH #### [facility] [address] [address] [address] Emily Hercules TSHon 09-02-2021 TSH 1.130 uIU/mL Normal 0.470-4.680 [facility] Comment on above: Performed By: #### T 7, CMP, LIPID, TSH #### [facility] [address] [place] [address] Dr. Emily Hercules TSH RANGE SEE BELOW Normal [facility] Comment on above: Result Comment: <0.3 4 UIU/ml HYPERTHYROID 0.34-5.60 UIU/ml EUTHYROID >5.60 UIU/ml HYPOTHYROID Performed By: #### T 7, CMP, LIPID, TSH #### [facility] [address] [place] [address] Dr. Emily Hercules BNPon 08-24-2021 Natriuretic peptide B (Bld) [Mass/Vol] 98.0 pg/mL Normal <=450.0 [facility] Comment on above: Performed By: #### C MP, BNP, TSH, HSTROPN #### [facility] [address] [place] [address] Dr. Emily Hercules CBC AUTO DIFFon 08-24-2021 BASO # 0.0 103/ul Normal 0.0-0.1 [facility] Comment on above: Performed By: #### C MP, BNP, TSH, HSTROPN #### [facility] [address] [place] [address] Dr. Emily Hercules Basophils/100 WBC (Bld) 0.6 % Normal 0.2-2.0 [facility] Comment on above: Performed By: #### C MP, BNP, TSH, HSTROPN #### [facility] [address] [place] [address] Dr. Emily Hercules EO # 0.3 103/ul Normal 0.0-0.7 [facility] Comment on above: Performed By: #### C MP, BNP, TSH, HSTROPN #### [facility] [address] [place] [address] Dr. Emily Hercules Eosinophils/100 WBC (Bld) 4.1 % Normal 0.9-7.0 [facility] Comment on above: Performed By: #### C MP, BNP, TSH, HSTROPN #### [facility] [address] [place] [address] Dr. Emily Hercules Erythrocyte distribution width (RBC) [Ratio] 13.6 % Normal 11.0-15.0 [facility] Comment on above: Performed By: #### C MP, BNP, TSH, HSTROPN #### [facility] [address] [place] [address] Dr. Emily Hercules Hematocrit (Bld) [Volume fraction] 39.4 % Normal 36.0-48.0 [facility] Comment on above: Performed By: #### C MP, BNP, TSH, HSTROPN #### [facility] [address] [place] [address] Dr. Emily Hercules Hemoglobin (Bld) [Mass/Vol] 13.4 g/dL Normal 12.0-16.0 [facility] Comment on above: Performed By: #### C MP, BNP, TSH, HSTROPN #### [facility] [address] [place] [address] Dr. Emily Hercules IG # 0.02 10e3/ul Normal 0.00-0.03 [facility] Comment on above: Performed By: #### C MP, BNP, TSH, HSTROPN #### [facility] [address] [place] [address] Dr. Emily Hercules IG % 0.3 % Normal 0.0-0.5 [facility] Comment on above: Performed By: #### C MP, BNP, TSH, HSTROPN #### [facility] [address] [place] [address] Dr. Emily Hercules LYMPH # 1.8 103/ul Normal 1.2-3.8 [facility] Comment on above: Performed By: #### C MP, BNP, TSH, HSTROPN #### [facility] [address] [place] [address] Dr. Emily Hercules Lymphocytes/100 WBC (Bld) 25.9 % Normal 20.5-60.0 [facility] Comment on above: Performed By: #### C MP, BNP, TSH, HSTROPN #### [facility] [address] [place] [address] Dr. Emily Hercules MANUAL DIFF REQ NO Normal [facility] Comment on above: Performed By: #### C MP, BNP, TSH, HSTROPN #### [facility] [address] [place] [address] Dr. Emily Hercules MCH (RBC) [Entitic mass] 29.9 pg Normal 26.7-34.0 [facility] Comment on above: Performed By: #### C MP, BNP, TSH, HSTROPN #### [facility] [address] [place] [address] Dr. Emily Hercules MCHC (RBC) [Mass/Vol] 34.0 g/dL Normal 29.9-35.2 [facility] Comment on above: Performed By: #### C MP, BNP, TSH, HSTROPN #### [facility] [address] [place] [address] Dr. Emily Hercules MCV (RBC) [Entitic vol] 87.9 fL Normal 81.0-99.0 [facility] Comment on above: Performed By: #### C MP, BNP, TSH, HSTROPN #### [facility] [address] [place] [address] Dr. Emily Hercules MONO # 0.4 103/ul Normal 0.3-0.8 [facility] Comment on above: Performed By: #### C MP, BNP, TSH, HSTROPN #### [facility] [address] [place] [address] Dr. Emily Hercules Monocytes/100 WBC (Bld) 5.8 % Normal 1.7-12.0 [facility] Comment on above: Performed By: #### C MP, BNP, TSH, HSTROPN #### [facility] [address] [place] [address] Dr. Emily Hercules NEUT # 4.4 103/ul Normal 1.4-6.5 [facility] Comment on above: Performed By: #### C MP, BNP, TSH, HSTROPN #### [facility] [address] [place] [address] Dr. Emily Hercules Neutrophils/100 WBC (Bld) 63.3 % Normal 43.0-75.0 [facility] Comment on above: Performed By: #### C MP, BNP, TSH, HSTROPN #### [facility] [address] [address] [address] Emily Hercules Platelet mean volume (Bld) [Entitic vol] 11.7 fL Normal 9.5-13.5 [facility] Comment on above: Performed By: #### C MP, BNP, TSH, HSTROPN #### [facility] [address] [address] [address] Emily Hercules PLT 122 103/ul Critically low 150-450 [facility] Comment on above: Performed By: #### C MP, BNP, TSH, HSTROPN #### [facility] [address] [place] [address] Dr. Emily Hercules RBC 4.48 106/ul Normal 4.20-5.40 [facility] Comment on above: Performed By: #### C MP, BNP, TSH, HSTROPN #### [facility] [address] [place] [address] Dr. Emily Hercules WBC 6.9 103/ul Normal 4.0-11.0 [facility] Comment on above: Performed By: #### C MP, BNP, TSH, HSTROPN #### [facility] [address] [place] [address] Dr. Emily Hercules CTA CHEST WO W [...] NATY BALDERRAMA Date: 2021-08-24 17:14 Normal [facility] Covid-19 PCR (CVDTBH)on 07-30 SARS-CoV-2 (COVID-19) RNA SUKHWINDER+probe Ql (Unsp spec) Not detected Normal NOT DETECTED [facility] Comment on above: Result Comment: This test is not yet approved or cleared by the [place] FDA. When there are no FDA-approved or cleared tests available, and other criteria are met, FDA can make tests available under an emergency access mechanism called an Emergency Use Authorization (EUA). The EUA for this test is supported by the [place] of Health and Human Service's (HHS's) declaration [...] #### C MP, BNP, TSH, HSTROPN #### [facility] [address] [place] [address] Dr. Emily Hercules LACTATE/LACTIC ACIDon 2020 Lactate [Moles/Vol] 0.5 mmol/L Critically low 0.7-2.0 [facility] Comment on above: Performed By: #### C MP, BNP, TSH, HSTROPN #### [facility] [address] [place] [address] Dr. Emily Hercules PROF 14(COMP METB)on 021 Albumin [Mass/Vol] 3.7 g/dL Normal 3.5-5.0 [facility] Comment on above: Performed By: #### C MP, BNP, TSH, HSTROPN #### [facility] [address] [place] [address] Dr. Emily Hercules Albumin/Globulin [Mass ratio] 1.0 {ratio} Normal [facility] Comment on above: Performed By: #### C MP, BNP, TSH, HSTROPN #### [facility] [address] [place] [address] Dr. Emily Hercules ALP [Catalytic activity/Vol] 63 U/L Normal 38-126 [facility] Comment on above: Performed By: #### C MP, BNP, TSH, HSTROPN #### [facility] [address] [place] [address] Dr. Emily Hercules ALT [Catalytic activity/Vol] 66 U/L Critically high 9-52 [facility] Comment on above: Performed By: #### C MP, BNP, TSH, HSTROPN #### [facility] [address] [place] [address] Dr. Emily Hercules Anion gap [Moles/Vol] 12.3 mmol/L Normal [facility] Comment on above: Performed By: #### C MP, BNP, TSH, HSTROPN #### [facility] [address] [place] [address] Dr. Emily Hercules AST [Catalytic activity/Vol] 48 U/L Critically high 14-36 [facility] Comment on above: Performed By: #### C MP, BNP, TSH, HSTROPN #### [facility] [address] [address] [address] Emily Hercules Bilirubin [Mass/Vol] 0.6 mg/dL Normal 0.2-1.3 [facility] Comment on above: Performed By: #### C MP, BNP, TSH, HSTROPN #### [facility] [address] [place] [address] Dr. Emily Hercules Calcium [Mass/Vol] 9.2 mg/dL Normal 8.4-10.2 [facility] Comment on above: Performed By: #### C MP, BNP, TSH, HSTROPN #### [facility] [address] [place] [address] Dr. Emily Hercules Chloride [Moles/Vol] 103 mmol/L Normal 98-107 [facility] Comment on above: Performed By: #### C MP, BNP, TSH, HSTROPN #### [facility] [address] [place] [address] Dr. Emily Hercules CO2 [Moles/Vol] 25.2 mmol/L Normal 22.0-30.0 [facility] Comment on above: Performed By: #### C MP, BNP, TSH, HSTROPN #### [facility] [address] [place] [address] Dr. Emily Hercules Creatinine [Mass/Vol] 1.49 mg/dL Critically high 0.52-1.04 [facility] Comment on above: Performed By: #### C MP, BNP, TSH, HSTROPN #### [facility] [address] [place] [address] Dr. Emily Hercules EGFR-AF MALAGASY 45 mL/min/1.73m2 Critically low >=60 [facility] Comment on above: Performed By: #### C MP, BNP, TSH, HSTROPN #### [facility] [address] [place] [address] Dr. Emily Hercules EGFR-NON AF MALAGASY 37 mL/min/1.73m2 Critically low >=60 [facility] Comment on above: Performed By: #### C MP, BNP, TSH, HSTROPN #### [facility] [address] [place] [address] Dr. Emily Hercules Globulin (S) [Mass/Vol] 3.6 g/dL Normal [facility] Comment on above: Performed By: #### C MP, BNP, TSH, HSTROPN #### [facility] [address] [place] [address] Dr. Emily Hercules Glucose [Mass/Vol] 100 mg/dL Normal 74-106 [facility] Comment on above: Performed By: #### C MP, BNP, TSH, HSTROPN #### [facility] [address] [place] [address] Dr. Emily Hercules Potassium [Moles/Vol] 4.5 mmol/L Normal 3.4-5.0 [facility] Comment on above: Performed By: #### C MP, BNP, TSH, HSTROPN #### [facility] [address] [place] [address] Dr. Emily Hercules Protein [Mass/Vol] 7.3 g/dL Normal 6.1-8.2 [facility] Comment on above: Performed By: #### C MP, BNP, TSH, HSTROPN #### [facility] [address] [place] [address] Dr. Emily Hercules Sodium [Moles/Vol] 136 mmol/L Critically low 137-145 [facility] Comment on above: Performed By: #### C MP, BNP, TSH, HSTROPN #### [facility] [address] [place] [address] Dr. Emily Hercules Urea nitrogen [Mass/Vol] 22.0 mg/dL Critically high 7.0-17.0 [facility] Comment on above: Performed By: #### C MP, BNP, TSH, HSTROPN #### [facility] [address] [place] [address] Dr. Emily Hercules Urea nitrogen/Creatinine [Mass ratio] 14.8 mg/mg Normal [facility] Comment on above: Performed By: #### C MP, BNP, TSH, HSTROPN #### [facility] [address] [place] [address] Dr. Emily Hercules PROTIMEon 08-24-2021 INR Coag (PPP) [Relative time] 1.08 {INR} Normal [facility] Comment on above: Performed By: #### C MP, BNP, TSH, HSTROPN #### [facility] [address] [place] [address] Dr. Emily Hercules INR GUIDELINES SEE BELOW Normal [facility] Comment on above: Result Comment: GUILLERMO RED INR: 2.0 - 3.0 CONDITIONS NOT LISTED BELOW 2.5 - 3.5 FOR PROSTHETIC HEART VALVE REPLACEMENT 2.5 - 3.5 RECURRENT THROMBOSIS Performed By: #### C MP, BNP, TSH, HSTROPN #### [facility] [address] [place] [address] Dr. Emily Hercules PT Coag (PPP) [Time] 11.6 s Normal 9.0-11.6 [facility] Comment on above: Performed By: #### C MP, BNP, TSH, HSTROPN #### [facility] [address] [place] [address] Dr. Emily Hercules PTTon 08-24-2021 aPTT Coag (Bld) [Time] 29.6 s Normal 22.3-36.2 [facility] Comment on above: Performed By: #### C MP, BNP, TSH, HSTROPN #### [facility] [address] [place] [address] Dr. Emily Hercules TROPONIN, HIGH SENSITIVITYon 08-24-2021 HSTROP 4.9 pg/mL Normal 4.0-35.5 [facility] Comment on above: Result Comment: CUT- OFF POINTS HAVE BEEN ESTABLISHED BASED ON THE FOURTH UNIVERSAL DEFINITIONS OF MYOCARDIAL INFARCTION. THE UPPER REFERENCE LIMIT (URL) OF TROPONIN, DEFINED THE 99TH PERCENTILE OF cTnI DISTRIBUTION IN A REFERENCE POPULATION, HAS BEEN CONFIRMED THE DECISION THRESHOLD FOR VT DIAGNOSIS. Performed By: #### C MP, BNP, TSH, HSTROPN #### [facility] [address] [place] [address] Dr. Emily Hercules HSTROP 7.0 pg/mL Normal 4.0-35.5 [facility] Comment on above: Result Comment: CUT- OFF POINTS HAVE BEEN ESTABLISHED BASED ON THE FOURTH UNIVERSAL DEFINITIONS OF MYOCARDIAL INFARCTION. THE UPPER REFERENCE LIMIT (URL) OF TROPONIN, DEFINED THE 99TH PERCENTILE OF cTnI DISTRIBUTION IN A REFERENCE POPULATION, HAS BEEN CONFIRMED THE DECISION THRESHOLD FOR VT DIAGNOSIS. Performed By: #### C MP, BNP, TSH, HSTROPN #### [facility] [address] [address] [address] Emily Hercules TSHon 08-24-2021 TSH 1.614 uIU/mL Normal 0.470-4.680 [facility] Comment on above: Performed By: #### C MP, BNP, TSH, HSTROPN #### [facility] [address] [address] [address] Emily Hercules TSH RANGE SEE BELOW Normal [facility] Comment on above: Result Comment: <0.3 4 UIU/ml HYPERTHYROID 0.34-5.60 UIU/ml EUTHYROID >5.60 UIU/ml HYPOTHYROID Performed By: #### C MP, BNP, TSH, HSTROPN #### [facility] [address] [address] [address] Emily Hercules US KARINE DOP LEG [...] MARCIAL BOB Date: 2021-08-24 16:22 Normal [facility] Test (Serum)on Test, Serum Negative Normal [facility] Comment on above: Performed By: #### 3 [id number] ####[place] [address] [place] [address] CBC With Differentialon 04-28 Basophils Auto #/vol (Bld) 0.06 10*3/uL Normal 0.01-0.07 [facility] Comment on above: Performed By: #### 2 [id number] ####[place] [address] [place] [address] Basophils/100 WBC Auto (Bld) 0.7 % Normal 0.1-1.2 [facility] Comment on above: Performed By: #### 2 [id number] ####[place] [address] [place] [address] Eosinophils 0.51 10*3/uL High 0.04-0.50 [facility] are Comment on above: Performed By: #### 2 919192 ####[place] [address] [place] [address] Eosinophils/100 leukocytes 6.1 % Normal 0.0-8.1 [facility] Comment on above: Performed By: #### 2 [id number] ####[place] [address] [place] [address] Erythrocyte distribution width Auto Ratio (RBC) 13.2 % Normal 12.0-15.4 [facility] Comment on above: Performed By: #### 2 623466 ####[place] [address] [place] [address] Erythrocytes (RBC) 4.67 10*6/uL Normal 3.85-5.10 [facility] Comment on above: Performed By: #### 2 066454 ####[place] [address] [place] [address] Erythrocytes (RBC) 0.0 /100{WBCs} Normal [facility] Comment on above: Performed By: #### 2 988813 ####[place] [address] [place] [address] Erythrocytes (RBC) 0.00 10*3/uL Normal [facility] Comment on above: Performed By: #### 2 778300 ####[place] [address] [place] [address] Hematocrit (HCT) 40.8 % Normal 36.5-46.6 [facility] Comment on above: Performed By: #### 2 987162 ####[place] [address] [place] [address] Hemoglobin mass conc (Bld) 13.6 g/dL Normal 11.8-15.3 [facility] Comment on above: Performed By: #### 2 333594 ####[place] [address] [place] [address] Imm Grans Absolute 0.02 10*3/uL Normal 0.00-0.21 [facility] Comment on above: Performed By: #### 2 061696 ####[place] [address] [place] [address] Immature granulocytes #/vol (Bld) 0.2 % Normal [facility] Comment on above: Performed By: #### 2 574363 ####[place] [address] [place] [address] Lymphocytes 2.15 10*3/uL Normal 0.40-2.84 [facility] are Comment on above: Performed By: #### 2 147809 ####[place] [address] [place] [address] Lymphocytes/100 leukocytes 25.8 % Normal 15.7-50.5 [facility] Comment on above: Performed By: #### 2 527315 ####[place] [address] [place] [address] MCH 29.1 pg Normal 27.5-33.0 [facility] Comment on above: Performed By: #### 2 929237 ####[place] [address] [place] [address] MCHC mass conc (RBC) 33.3 g/dL Normal 30.1-35.0 [facility] Comment on above: Performed By: #### 2 615786 ####[place] [address] [place] [address] MCV 87.4 fL Normal 85.4-100.0 [facility] Comment on above: Performed By: #### 2 354871 ####[place] [address] [place] [address] Monocytes 0.57 10*3/uL Normal 0.25-0.83 [facility] Comment on above: Performed By: #### 2 851435 ####[place] [address] [place] [address] Monocytes/100 leukocytes 6.9 % Normal 4.8-12.7 [facility] Comment on above: Performed By: #### 2 187693 ####[place] [address] [place] [address] Neutrophils 5.01 10*3/uL Normal 1.95-6.85 [facility] are Comment on above: Performed By: #### 2 494857 ####[place] [address] [place] [address] Neutrophils/100 leukocytes 60.3 % Normal 36.8-73.2 [facility] Comment on above: Performed By: #### 2 562981 ####[place] [address] [facility] [place] [address] Platelet mean volume (PMV) 12.0 fL Normal 9.9-12.1 [facility] Comment on above: Performed By: #### 2 088799 ####[place] [address] [place] [address] Platelets 207 10*3/uL Normal 155-404 [facility] e Comment on above: Performed By: #### 2 533116 ####[place] [address] [place] [address] RDW SD 42.2 fL Normal 39.3-48.6 [facility] Comment on above: Performed By: #### 2 600318 ####[place] [address] [place] [address] WBC (Leukocytes) 8.3 10*3/uL Normal 4.4-9.9 [facility] Comment on above: Performed By: #### 2 693464 ####[place] [address] [place] [address] Partial Thromboplastin Timeo n 05-10-2017 aPTT 28.4 s Normal 22.1-35.3 [facility] Comment on above: Result Comment: Luis allen note new Heparin Therapeutic range effective 02/14/17.Heparin Therapeutic Range: 71 - 97 sec Performed By: #### 3 221525 ####[place] [address] [place] [address] Prothrombin Timeon INR Coag RelTime (PPP) 1.00 {INR} Normal 0.85-1.16 [facility] Comment on above: Result Comment: Coum vanesa Therapy:1.5 - 2.0 Low Intensity Therapy2.0 - 3.0 Moderate Intensity Therapy2.5 - 3.5 High (1) Intensity Therapy3.0 - 4.0 High (2) Intensity Therapy Performed By: #### 3 [id number] ####[place] [address] [place] [address] Prothrombin time (PT) Coag time (PPP) 13.1 s Normal 11.3-14.5 [facility] are Comment on above: Performed By: #### 3 [id number] ####[address] [address] Vital Signs Date Time Vital Sign Value Performing Clinician Facility 04-28-2025 09:49-0400 Body height 160 cm FRESS Work Phone: [facility] 04-28-2025 09:49-0400 Body mass index (BMI) [Ratio] 35.78 kg/m2 FRESS Work Phone: [facility] 04-28-2025 09:49-0400 Body weight 91.63 kg FRESS Work Phone: [facility] 04-17-2025 09:13-0400 Body height 165.1 cm FRESS Work Phone: [facility] 04-17-2025 09:13-0400 Body mass index (BMI) [Ratio] 33.61 kg/m2 FRESS Work Phone: [facility] 04-17-2025 09:13-0400 Body weight 91.63 kg FRESS Work Phone: [facility] 04-17-2025 09:13-0400 Diastolic blood pressure 75 mm[Hg] Clyde Juventino DO Work Phone: [facility] 04-17-2025 09:13-0400 Systolic blood pressure 115 mm[Hg] Clyde Choi DO Work Phone: [facility] 04-12-2025 11:31-0400 Body temperature 98.3 [degF] Cabrera Jones MD Work Phone: [facility] 04-12-2025 11:31-0400 Diastolic blood pressure 60 mm[Hg] Cabrera Jones MD Work Phone: [facility] 04-12-2025 11:31-0400 Heart rate 60 /min Cabrera Jones MD Work Phone: [facility] 04-12-2025 11:31-0400 Respiratory rate 16 /min Cabrera Jones MD Work Phone: [facility] 04-12-2025 11:31-0400 SaO2% (BldA) [Mass fraction] 98 % Cabrera Jones MD Work Phone: [facility] 04-12-2025 11:31-0400 Systolic blood pressure 98 mm[Hg] Cabrera Jones MD Work Phone: [facility] 04-12-2025 06:00-0400 Body weight 94 kg Cabrera Jones MD Work Phone: [facility] 04-11-2025 20:00-0400 Inhaled oxygen flow rate 8 L/min Cabrera Jones MD Work Phone: [facility] 04-11-2025 12:06-0400 Body height 160.02 cm Cabrera Jones MD Work Phone: [facility] 12-24-2024 14:38-0500 Body height 160 cm Edison Ardon MD Work Phone: [facility] 12-24-2024 14:38-0500 Body mass index (BMI) [Ratio] 33.3 kg/m2 Edison Ardon MD Work Phone: [facility] 12-24-2024 14:38-0500 Body temperature 98.2 [degF] Edison Ardon MD Work Phone: [facility] 12-24-2024 14:38-0500 Body weight 85.28 kg Edison Ardon MD Work Phone: [facility] 12-24-2024 14:38-0500 Diastolic blood pressure 79 mm[Hg] Edison Ardon MD Work Phone: [facility] 12-24-2024 14:38-0500 Heart rate 89 /min Edison Ardon MD Work Phone: [facility] 12-24-2024 14:38-0500 Respiratory rate 14 /min Edison Ardon MD Work Phone: [facility] 12-24-2024 14:38-0500 SaO2% (BldA) [Mass fraction] 98 % Edison Ardon MD Work Phone: [facility] 12-24-2024 14:38-0500 Systolic blood pressure 117 mm[Hg] Edison Ardon MD Work Phone: [facility] 11-24-2024 13:51-0500 Body mass index (BMI) [Ratio] 34.72 kg/m2 Edison Ardon MD Work Phone: [facility] 11-24-2024 13:51-0500 Body weight 88.91 kg Edison Ardon MD Work Phone: [facility] Encounters Encounter Date Encounter Type Care Provider Facility Start: 07-01-2025 End: 07-01-2025 ambulatory Cabrera Jones MD Work Phone: [facility] Work Phone: Start: 07-01-2025 End: 07-01-2025 Departed Referred Cabrera Francis MD -LAB [facility] Start: 06-12-2025 End: 06-12-2025 ambulatory Cabrera Jones MD Work Phone: [facility] Work Phone: Start: 06-12-2025 End: 06-12-2025 Departed Referred Cabrera Francis MD -LAB [facility] Start: 04-28-2025 End: 04-28-2025 ambulatory CLYDE [...] 04-12-2025 End: 04-20-2025 External Result Encounter Clyde Domínguezy DO Work Phone: [facility] Unsolicited Start: 04-12-2025 End: 04-20-2025 External Result Encounter Clyde Domínguezy DO Work Phone: [facility] Unsolicited Start: 04-11-2025 End: 04-14-2025 External Result Encounter Clyde Choi DO Work Phone: [facility] Unsolicited Start: 04-11-2025 End: 04-14-2025 External Result Encounter Clyde Choi DO Work Phone: [facility] Unsolicited Start: 04-11-2025 End: 04-12-2025 Evaluation and management of inpatient Clyde Choi DO -[facility] Work Phone: Start: 12-24-2024 End: 12-24-2024 Patient encounter procedure Edison Ardon MD Work Phone: [facility] Comment on above: Diaphragmatic hernia without obstruction and without gangrene (Primary Dx) Start: 12-24-2024 End: 12-24-2024 ambulatory EDISON ARDON Facility:[facility] Start: 12-24-2024 End: 12-24-2024 Subsequent hospital visit by physician [facility] Qb[facility] (I-Stat) Radiology Comment on above: Diaphragmatic hernia without obstruction and without gangrene [K44.9] Start: 11-24-2024 End: 11-24-2024 Telephone encounter Edison Ardon MD Work Phone: [facility] Comment on above: Appointment Consult; Appointment Confirmation Request Outside [facility] Records; Received Outside Medical Records Start: 05-12-2022 End: 05-12-[address] CABRERA JONES Facility:[facility] Start: 09-20-2021 End: 09-20-[address] CABRERA JONES Facility:[facility] Start: 09-15-2021 End: 09-16-[address] CABRERA JONES Facility:[facility] Start: 09-02-2021 End: 09-03-[address] CABRERA JONES Facility:[facility] Start: 08-24-2021 End: 08-24-[address] MARCIAL BOB Facility:[facility] Start: 05-16-2017 End: 05-16-2017 Ambulatory Tito VALLE Facility:[facility] Start: 05-10-2017 Ambulatory Tito VALLE Facility:[facility] Start: 05-09-2017 Ambulatory Tito VALLE Facility:[facility] Procedures Date Procedure Procedure Detail Performing Clinician Start: 06-12-2025 Urine culture Cabrera shirley MD Work Phone: Start: 04-12-2025 Complete blood count with white cell differential, automated Clyde Choi DO Work Phone: Start: 04-11-2025 GLUCOSE POCT GLUCOMETERS Clyde Choi DO Work Phone: Start: 12-24-2024 Radiologic exam esop hagus single contrast study Edison Ardon MD Work Phone: Plan of Treatment Date Care Activity Detail Author Start: 07-01-2025 Bacteria identified in Urine by Culture Urine Culture [facility] Start: 07-01-2025 Urine culture [facility] Start: 06-12-2025 Bacteria identified in Urine by Culture Urine Culture [facility] Start: 06-12-2025 Urine culture [facility] Start: 04-28-2025 End: 04-28-2025 Patient encounter procedure 04/28/2025 9:30 AM EDT Office [facility] [address] [place] [address] Clyde Choi, DO [address] [place] [address] [facility] [address] [facility] Start: 04-17-2025 End: 04-17-2025 Patient encounter procedure 04/17/2025 9:15 AM EDT Office Visit [facility] [address] [place] [id number] Clyde Choi, DO [address] [place] [address] [facility] [address] [facility] Start: 04-12-2025 [facility] Start: 04-11-[address] [facility] Start: 04-11-2025 Resection of Appendi x, Percutaneous Endoscopic Approach Resection of Appendix, Percutaneous Endoscopic Approach [facility] Start: 12-24-2024 End: 12-24-2024 Patient encounter procedure Radiology Comment on above: Hiatal Hernia Start: 06-29-2024 Covid-19 Vaccine ( season) Covid-19 Vaccine ( season) [facility] Start: 06-29-2024 Covid-19 Vaccine ( season) Covid-19 Vaccine ( season) [facility] Start: 06-29-2024 Influenza vaccination Influenza Vacc ine (#1) [facility] Start: 2023 Pneumococcal Vaccine : 50+ (1 of 1 - PCV) Pneumococcal Vaccine: 50+ (1 of 1 - PCV) [facility] Start: 2023 Screening for malign ant neoplasm of lung Lung Cancer Screening [facility] Start: 2023 Shingrix Vaccine (1 of 2) Shingrix Vaccine (1 of 2) [facility] Start: 2018 Diabetes Screening Diabetes Screenin g [facility] Start: 2018 Lipid panel Lipid Screening [facility] Start: 2018 Screening for malign ant neoplasm of colon [facility] Start: 2013 Screening for malign ant neoplasm of breast Mammogram Screening [facility] Start: 1994 Screening for malign ant neoplasm of cervix Cervical Cancer Screening [facility] Start: 1992 Hepatitis B Vaccine (1 of 3 - 19+ 3-dose series) Hepatitis B Vaccine (1 of 3 - 19+ 3-dose series) [facility] Start: 1992 Urine microalbumin profile DTaP,Tdap,Td Vaccine (1 - Tdap) [facility] Start: 1991 Anxiety Screening Anxiety Screening [facility] Start: 1991 Depression Screening Depression Scre ening [facility] Start: 1991 Hepatitis C screening Hepatitis C Sc reening [facility] Start: 1991 HIV screening HIV Screening [facility] Patient Education Know your Meds [facility] Work Phone: Patient referral [facility] Work Phone: End: 12-24-2025 XR Esophagus Views W contrast PO XR ESOPHAGRAM Radiology Routine Diaphragmatic hernia without obstruction and without gangrene 1 Occurrences starting 11/24/2024 until 12/24/2025 [facility] Work Phone: Comment on above: 1 Occurrences starti ng 11/24/2024 until 12/24/2025 Immunizations Immunization Date Immunization Notes Care Provider Emmanuel mullen 06-28-2020 influenza virus vacc ine, unspecified formulation Gi (I-Stat) [facility] Payers Date Payer Category Payer Medicare [id number] 2025 Self-pay 2018 Medicaid [id number] 2018 Medicare (Managed Care) 1.2. [id number] 2018 Unknown [facility] AND [facility] MEDICARE ADVANTAGE HMO [id number] 2018-Present [phone] [address] [place] [address] HMO [id number] 1973 Unknown [id number] 93 1973 Unknown [id number] 93 1973 Unknown [id number] 93 1973 Unknown [id number] 93 1973 Unknown [id number] 93 1973 Unknown [id number] 259 1973 Unknown [id number] 259 1959 Medicaid [id number] 1959 Unknown [id number] Medicare [id number] Unknown MMO [id number] Unknown [id number] 31 Unknown [id number] 31 Unknown [id number] 31 Social History Date Type Detail Facility Start: 11-24-[address] [facility] Start: 05-06-2001 End: 05-06-2019 History of tobacco use Current smoker [facility] Start: 05-06-2001 End: 05-06-2019 History of tobacco use Cigarette Smoker [facility] Start: 11-24-2024 End: 04-28-2025 Cigarettes smoked current (pack per day) - Reported 1.5 [facility] Start: 11-24-2024 Tobacco use and exposure Smokeless tobacco non-user [facility] Start: 11-24-2024 End: 12-24-2024 Alcoholic beverage intake Ex-drinker (finding) [facility] Start: 11-24-2024 End: 04-28-2025 Tobacco use panel [facility] National Score (1-10 0), lower number is lower risk Not on file [facility] Start: 11-24-2024 Tobacco Comment using E cig [facility] Start: 1975 Sex assigned at Not on file [facility] Tobacco smoking stat [facility] Tobacco smoking consumption unknown [facility] Start: 04-17-2025 Tobacco smoking stat [facility] Never smoked tobacco [facility] Start: 04-17-2025 Tobacco use and exposure Former smokeless tobacco user [facility] Start: 04-17-2025 End: 04-28-2025 Alcoholic beverage intake Defer [facility] Start: 04-17-2025 Tobacco Comment vape [facility] Sex Female (finding) 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 documented in this encounter [facility] 04-17-2025 History of Presen t illness [...] PCL 04/15/2025 10:01 Attached To: GENERAL PATHOLOGY [[id number]] Orders Only on 04/15/25 with Clyde Choi DO Source Information [facility] [place] [facility] [employer] [facility] Document History ASSESSMENT AND PLAN: Assessment/Plan Diagnoses [...] follow-ups on file. documented in this encounter [facility] 04-11-2025 Evaluation note Diagnosis Onset Date Resolution Leukocytosis resolved April 11 025 11:26am Right lower quadrant pain resolved April 11, 2025 11:26am Acute appendicitis inactive March 292024 11:26am [facility] Work Phone: 1(254) 851-415403-08-2025 NoteHNO ID: [id number] Author: EDISON ARDON MD Service: ? Author Type: Physician Type: Progress Notes Filed: 01/03/2025 09:17 Note Text: I have read and reviewed the documentation and agree. I wish to add the followingI wish to add the following findings which will be communicated back to the requesting physician. Edison Ardon MD [facility] STAFF PHYSICIAN NOTE OF PERSONAL INVOLVEMENT [...] SERVICE: Dec 24, 2024 TIME OF SERVICE: [address] [place], [place] 9545203-08-2025 History of Present illness Narrative* Edison Ardon MD - 01/03/2025 9:12 AM EST I have read and reviewed the documentation and agree. I wish to add the followingI wish to add the following findings which will be communicated back to the requesting physician. Edison Ardon MD [facility] STAFF PHYSICIAN NOTE OF PERSONAL INVOLVEMENT [...] THORACIC SURGERY OUTPATIENT CONSULT NOTE Kiya Bhat [id number] Requesting Provider: Self Thoracic Physician: Edison Ardon [...] personally performed by: Duglas Manjarrez Patient-Entered Questionnaire [facility] Esophageal Questionnaire 12/23/2024 Domain Symptom Raw Score [...] (Range 6-30) Incomplete Incomplete [facility] NoteHNO ID: [id number] Author: HEENA MANJARREZ MD Service: ? Author Type: Fellow Type: Progress Notes Filed: 01/03/2025 09:17 Note Text: [facility] THORACIC SURGERY OUTPATIENT CONSULT NOTE Kiya Bhat [id number] Requesting Provider: Self Thoracic Physician: Edison Ardon [...] personally performed by: Duglas Manjarrez Patient-Entered Questionnaire [facility] Esophageal Questionnaire 12/23/2024 Domain Symptom Raw Score [...] Incomplete (Range 6-36) Incomplete (Range 6-30) Incomplete [facility]completeSam[facility] History of Present illness Narrative* Sonia Bennett RT(Sybil) - 12/24/2024 1:20 PM EST Radiology Service [...] PATIENT PRESENTS WITH AN IMPLANTABLE OR ATTACHED BEAN WEIGHER: No RADIOLOGY DEPARTMENT: General X-ray: Exam(s) Completed: GI/ Procedure(s): Esophogram with barium contrast PERIPHERAL IV DATA: Not applicable SIGNED BY: RT Wil(Sybil) December 24, 2024 1:50 PM documented in this encounterK[facility]-26-2025 NoteHNO ID: [id number] Author: SONIA BENNETT RT(R) Service: Radiology Author [...] PATIENT PRESENTS WITH AN IMPLANTABLE OR ATTACHED BEAN WEIGHER: No RADIOLOGY DEPARTMENT: General X-ray: Exam(s) Completed: GI/ Procedure(s): Esophogram with barium contrast PERIPHERAL IV DATA: Not applicable SIGNED BY: Sonia Bennett RT(R) December 24, 2024 1:50 [facility]01-27-2025 Telephone encounter Note* Telephone Encounter - Trice Louis - 11/24/2024 4:37 PM EST Patient confirmed appointment scheduled with Dr. Ardon with barium on 12/24/24 [facility] Work Phone: [phone]) 531-427601-27-2025 Miscellaneous Notes* Telephone Encounter - Trice Louis [...] with diet exercise) esophagram Jenni Mg, RN * Telephone Encounter - Renae Holly - 11/24/2024 12:58 PM EST LOCAL PATIENT Received [employer] Staff Message from Gill Brar is former [...] office for scheduling. Please call pt at [phone]. Patient was informed consultation could be at [place] or [facility] [place]: No Patient Registration: Registration complete/updated: yes Insurance card(s) scanned in [facility] with in the past year: No Pt's Allocade is active. Ok to communicate to pt via Allocade yes Medical Records: Records in [facility] (internal CC records): Yes (old) Imaging in [facility] (internal CC records): Yes (old) Care [...] for triage Renae Elliott documented in this encounterK[facility]01-27-2025 Telephone encounter Note * Telephone Encounter - Renae Holly - 11/24/2024 4:04 PM EST Received outside office note (scanned) to [facility]. Renae Chaudhry Clay Worker [facility] Work Phone (unformatted): [phone] Miscellaneous Notes* Telephone Encounter - Renae Holly - 11/24/2024 4:04 PM EST Received outside office note (scanned) to [facility]. Renae Chaudhry Clay Worker * Telephone Encounter - Renae Holly - 11/24/2024 2:12 PM EST Attempt #1 Requested Medical Records from the office of Dr. Cabrera Jones Spoke to: Jacki Phone #: [phone] Fax #: [phone] Jacki agreed to fax the last office note Renae Richa Elliott November 24, 2024 2:12 PM documented in this encounterK[facility]01-27-2025 Telephone encounter Note * Telephone Encounter - Renae Holly - 11/24/2024 2:12 PM EST Attempt #1 Requested Medical Records from the office of Dr. Cabrera Jones Spoke to: Jacki Phone #: [phone] Fax #: [phone] Jacki agreed to fax the last office note Renae Richa Elliott November 24, 2024 2:12 PM [facility]01-27-2025 Telephone encounter Note* Telephone Encounter - Jenni [...] with diet exercise) esophagram Jenni Mg, RN [facility]01-27-2025 Telephone encounter Note* Telephone Encounter - Renae Holly - 11/24/2024 12:58 PM EST LOCAL PATIENT Received [facility] Staff Message from Gill Brar is former [...] office for scheduling. Please call pt at [phone]. Patient was informed consultation could be at [place] or [facility] [place]: No Patient Registration: Registration complete/updated: yes Insurance card(s) scanned in [facility] with in the past year: No Pt's Allocade is active. Ok to communicate to pt via Allocade yes Medical Records: Records in [facility] (internal CC records): Yes (old) Imaging in [facility] (internal CC records): Yes (old) Care Everywhere - queried yes, downloaded No Linked Outside Organizations (list): n/a OSH Records Requested: none Date: N/A Outside Hospital(s) requested records from: n/a Received: none Uploaded: N/A. Waiting on additional records: No. Missing (list): N/A OSH Pathology Slides Requested: none Date: N/A Outside Hospital(s) slides requested from: n/a [facility] Radiology Imaging Requested: none Date: N/A Outside [...] Yes, Thoracic NPM for triage Renae Elliott [facility] Work Phone (unformatted): [phone] Telephone encounter Note* Telephone Encounter - Gill Brar - 11/24/2024 11:32 AM EST .RECEIVED CALL FROM: Patient PATIENT INFORMATION: Name: Kiya Bhat : 1975 (home) [phone] (cell) Email: [email or web address] Referring Provider: No referring provider defined for this encounter. Phone: N/A Fax: Requested Surgeon: Edison Ardon M.D., Ph.D. Reason for appointment/diagnosis: Diaphragmatic hernia without obstruction and without gangrene Gill Brar November 24, 2024 11:32 AM [facility]01-27-2025 Miscellaneous Notes* Telephone Encounter - Gill Brar - 11/24/2024 11:32 AM EST .RECEIVED CALL FROM: Patient PATIENT INFORMATION: Name: Kiya Bhat : 1975 (home) [phone] (cell) Email: [email or web address] Referring Provider: No referring provider defined for this encounter. Phone: N/A Fax: Requested Surgeon: Edison Ardon M.D., Ph.D. Reason for appointment/diagnosis: Diaphragmatic hernia without obstruction and without gangrene Gill Brar November 24, 2024 11:32 AM documented in this encounterKettering Health [facility]ble05-04-2022 NoteChief Complaint consultation for sebaceous cyst HPI [...] type 2: Mother and Brother. Heart disease: Mother.[facility] CenterComment on above:Result Comment: Electronically Signed By: FRANK GALLO, Hemal Moore\Date and Time Signed: 03/01/22 16:21 EDTEvaluation note* Diagnosis Diaphragmatic hernia without obstruction and without gangrene- Primary documented in [facility] encounter [facility]* Diagnosis Diaphragmatic hernia without obstruction and without gangrene documented in this encounter [facility]* Diagnosis Diaphragmatic hernia without obstruction and without gangrene- Primary documented in this encounter [facility]* Diagnosis Other acute appendicitis- Primary documented in this encounter [facility]* Diagnosis Other acute appendicitis- Primary [facility] Diagnostic Procedure Only (Routine) - Authorized Specialty Diagnoses / Procedures Referred By Chandler berkowitz Referred To Contact XR IMAGING Diagnoses Diaphragmatic hernia without obstruction and without gangrene Procedures XR ESOPHAGRAM RADIOLOGIC EXAM ESOPHAGUS SINGLE CONTRAST STUDY Edison Ardon MD [address] [place] [address] [place] [address] Referral ID Status Reason Start Date Expiration Date Visits Requested Visits Authorized [id number] Authorized Auto-Generat ed Referral 11/24/2024 12/24/2025 1 1 [facility] Summary Purpose Family History No Family [...] Acute appendicitis April 11, 2025 11:2 6am Chief Complaint Admit Date acute qiana April 11, 2025 11:2 6am Unknown June 12, 2025 9: 25am Unknown July 01, 2025 10:18am Additional Source Comments INFORMATION SOURCE (unrecogn ized section and content) DATE CREATED AUTHOR 04/24/2018 [facility] DATE CREATED AUTHOR AUTHOR'S ORGANIZ ATION 03/03/2022 [facility] DATE CREATED AUTHOR AUTHOR'S ORGANIZ ATION 05/18/2022 [facility] DATE CREATED AUTHOR AUTHOR'S ORGANIZ ATION 01/05/2025 [facility] DATE CREATED AUTHOR AUTHOR'S ORGANIZ ATION 04/29/2025 [facility] DATE CREATED AUTHOR AUTHOR'S ORGANIZ ATION 07/03/2025 [facility] Source Comments (unrecognize d section and content) In the event this informatio n is protected by the Federal Confidentiality of Alcohol and Drug Abuse Patient Records regulations: The Federal rules restrict any use of the information to criminally investigate or prosecute any alcohol or drug abuse patient.[facility]bleIn the event this information is protected by the Federal Confidentiality of Alcohol and Drug Abuse Patient Records regulations: The Federal rules restrict any use of the information to criminally investigate or prosecute any alcohol or drug abuse patient.[facility]bleIn the event this information is protected by the Federal Confidentiality of Alcohol and Drug Abuse Patient Records regulations: The Federal rules restrict any use of the information to criminally investigate or prosecute any alcohol or drug abuse patient.[facility]bleIn the event this information is protected by the Federal Confidentiality of Alcohol and Drug Abuse Patient Records regulations: The Federal rules restrict any use of the information to criminally investigate or prosecute any alcohol or drug abuse patient.[facility]bleIn the event this information is protected by the Federal Confidentiality of Alcohol and Drug Abuse Patient Records regulations: The Federal rules restrict any use of the information to criminally investigate or prosecute any alcohol or drug abuse patient.[facility] Reason for Visit (unrecogniz ed section and content) Reason Comments Appointment Reason Comments Consult Appointment Confirmation Reason Comments Request Outside Medical Records Received Outside Medical Records Reason Comments Radio GI Main HB6 Specialty Diagnoses / Procedures Referred By Contac t Referred To Contact XR IMAGING Diagnoses Diaphragmatic hernia without obstruction and without gangrene Procedures XR ESOPHAGRAM RADIOLOGIC EXAM ESOPHAGUS SINGLE CONTRAST STUDY Edison Ardon MD [address] [place] [address] Phone: tel: [place] [address] Referral ID Status Reason Start Date Expiration Date V isits Requested Visits Authorized [id number] Closed Auto-Generate d Referral 11/24/2024 12/24/2025 1 1 Reason Comments Consult Reason Comments 1st pow lap appy IP Reason Comments 3rd pow lap appy IP Discuss colonoscopy Care Teams (unrecognized sec tion and content) 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 Start Date End Date Cabrera Jones MD [address] [place] [address] PCP - General Family Medicine 11/24/24 Junior Araya Jr., MD [address] [address] Referring 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/19 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 Start Date End Date Cabrera Jones MD [address] [place] [address] PCP - General Family Medicine 11/24/24 Junior Araya Jr., MD [address] [place] [address] Referring 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/19 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 Start Date End Date Cabrera Jones MD [address] [place] [address] PCP - General Family Medicine 11/24/24 Junior Araya Jr., MD [address] [place] [address] Referring 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/19 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 Start Date End Date Cabrera Jones MD [address] [place] [address] PCP - General Family Medicine 11/24/24 Junior Araya Jr., MD [address] [place] [address] Referring 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/19 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 Start Date End Date Cabrera Jones MD [address] [place] [address] PCP - General Family Medicine 11/24/24 Junior Araya Jr., MD [address] [place] [address] [place] [address] Referring 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/19 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 Start Date End Date Cabrera Jones MD [address] [place] [address] PCP - General Family Medicine 04/14/25 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 [facility] [employer] [facility]. provides no warranty or guarantee of the accuracy or completeness of information in this document.
== END 2025-07-08 08:16 | disposition home or self-care (01) ==
LOC: US 08:15
PROVIDERS: PCP Family Medicine; Visit Provider Family Medicine
DX: R31.9 Hematuria, unspecified (principal); N20.0 Calculus of kidney
CPT/HCPCS: 76770

== ENCOUNTER 2025-07-20 08:46 | Outpatient (OUT) | payer MEDICARE, MEDICAID, SELFPAY ==
--- NOTE | 2025-07-20 08:50 | CT_ITS ---
The [address] [address] Patient Name: CE ALEJANDRA MRN: [id number] date: 1975 Sex: F Assigned Patient Location: CT Current Patient Location: CT Accession/Order Number: [id number] Exam Date: 07/20/2025 08:55 Report Date: 07/20/2025 10:07 At the request of: CABRERA VIGIL MD Procedure: CT abdomen pelvis wo con CT ABDOMEN AND PELVIS WITHOUT CONTRAST COMPARISON: 04/11/2025 CLINICAL DATA: Right flank pain and hematuria. History of kidney stones. Spiral images were obtained through the abdomen and pelvis without contrast. This CT exam was performed using one or more following dose reduction techniques: Automated exposure control, adjustment of the mA and/or kV according to patient size, or use of iterative reconstruction technique. Limited cuts through the lung bases show similar large hiatal hernia containing stomach and left colon. There is minor atelectasis and/or scarring. A punctate nodular density is again seen at the right base. Assessment of the intra-abdominal organs is slightly limited by the absence of contrast. The gallbladder is surgically absent. There is slight common duct prominence however no choledocholithiasis. No intrahepatic masses are identified. The spleen, pancreas and adrenal glands show no acute findings. The right kidney is smaller than the left and there is multifocal scarring. There are several right renal stones, the largest at the lower pole measuring up to 7 - 8 mm. There is also a tiny stone or 2 adjacent stones at the lower pole on the left. No hydronephrosis is identified. There is no ureteral dilatation though there is a stone at the right ureterovesical junction measuring 4 - 5 mm. There is also a stone near ureterovesical junction on the left measuring almost 7 mm in size. These are new since the comparison. The abdominal aorta is normal caliber. No developing lymphadenopathy is seen. There is no ascites. The small bowel loops are not dilated. Mild stool is present within the colon. There are some colonic diverticula on the left. Subtle levoscoliotic curvature and mild degenerative changes are seen at the spine. Images through the pelvis show no dilated small bowel. There is interval appendectomy. There is stool at the cecum and distal colon. No additional colonic diverticula are noted. The uterus and adnexa are within normal limits. The bladder wall is top borderline thickened for the degree of distention. There are mildly patulous inguinal rings containing fat. There is no ascites. CT/CT abdomen pelvis wo con IMPRESSION: LARGE HIATAL HERNIA. BILATERAL NEPHROLITHIASIS, GREATER ON THE RIGHT NONOBSTRUCTING BILATERAL URETEROVESICAL JUNCTION STONES. UNDER DISTENDED URINARY BLADDER WITH BORDERLINE WALL THICKENING. CLINICAL CORRELATION IS RECOMMENDED TO EXCLUDE ANY POSSIBILITY OF CYSTITIS. Impression dictated by: Gaby Hutchinson M.D. 07/20/2025 10:07 AM Dictation Location: [email or web address] Electronically authenticated by: [id number] Y Date: 07/20/2025 10:07
--- OUTSIDE RECORDS SUMMARY | 2025-07-20 08:51 | XMS_ITS | CCD ---
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 #### [facility] [address] [address] [address] Emily Hercules Cholesterol in HDL [Mass/Vol] 43 mg/dL Normal [facility] Comment on above: Performed By: #### C MP, BNP, TSH, HSTROPN #### [facility] [address] [address] [address] Emily Hercules Cholesterol in LDL [Mass/Vol] 109.0 mg/dL Normal [facility] Comment on above: Performed By: #### C MP, BNP, TSH, HSTROPN #### [facility] [address] [place] [address] Dr. Emily Hercules Cholesterol.total/Ch olesterol in HDL [Mass ratio] 4.3 {ratio} Normal [facility] Comment on above: Performed By: #### C MP, BNP, TSH, HSTROPN #### [facility] [address] [address] [address] Emily Hercules HDL NORMAL > or = 60 mg/dl - LO W CARDIOVASCULAR RISK <40 mg/dl - HIGH CARDIOVASCULAR RISK Normal [facility] Comment on above: Performed By: #### C MP, BNP, TSH, HSTROPN #### [facility] [address] [address] [address] Emily Hercules LDL CALC NORMAL SEE BELOW Normal [facility] Comment on above: Result Comment: <100 mg/dl OPTIMAL 100 - 129 mg/dl NEAR OR ABOVE OPTIMAL 130 - 159 mg/dl BORDERLINE HIGH 160 - 189 mg/dl HIGH >190 mg/dl VERY HIGH Performed By: #### C MP, BNP, TSH, HSTROPN #### [facility] [address] [address] [address] Emily Hercules Triglyceride [Mass/Vol] 155 mg/dL Critically high <=150 [facility] Comment on above: Performed By: #### C MP, BNP, TSH, HSTROPN #### [facility] [address] [address] [address] Emily Hercules VLDL CALC 31.0 mg/dL Normal [facility] Comment on above: Performed By: #### C MP, BNP, TSH, HSTROPN #### [facility] [address] [address] [address] Emily Hercules PROF 14(COMP METB)on 021 Albumin [Mass/Vol] 3.8 g/dL Normal 3.5-5.0 [facility] Comment on above: Performed By: #### T 7, CMP, LIPID, TSH #### [facility] [address] [address] [address] Emily Hercules Albumin/Globulin [Mass ratio] 1.1 {ratio} Normal [facility] Comment on above: Performed By: #### T 7, CMP, LIPID, TSH #### [facility] [address] [address] [address] Emily Hercules ALP [Catalytic activity/Vol] 57 U/L Normal 38-126 [facility] Comment on above: Performed By: #### T 7, CMP, LIPID, TSH #### [facility] [address] [address] [address] Emily Hercules ALT [Catalytic activity/Vol] 57 U/L Critically high 9-52 [facility] Comment on above: Performed By: #### T 7, CMP, LIPID, TSH #### [facility] [address] [address] [address] Emily Hercules Anion gap [Moles/Vol] 11.7 mmol/L Normal [facility] Comment on above: Performed By: #### T 7, CMP, LIPID, TSH #### [facility] [address] [address] [address] Emily Hercules AST [Catalytic activity/Vol] 35 U/L Normal 14-36 [facility] Comment on above: Performed By: #### T 7, CMP, LIPID, TSH #### [facility] [address] [address] [address] Emily Hercules Bilirubin [Mass/Vol] 0.7 mg/dL Normal 0.2-1.3 [facility] Comment on above: Performed By: #### T 7, CMP, LIPID, TSH #### [facility] [address] [address] [address] Emily Hercules Calcium [Mass/Vol] 8.8 mg/dL Normal 8.4-10.2 [facility] [place] Comment on above: Performed By: #### T 7, CMP, LIPID, TSH #### [facility] [address] [place] [address] Dr. Emily Hercules Chloride [Moles/Vol] 105 mmol/L Normal 98-107 [facility] Comment on above: Performed By: #### T 7, CMP, LIPID, TSH #### [facility] [address] [place] [address] Dr. Emily Hercules CO2 [Moles/Vol] 26.1 mmol/L Normal 22.0-30.0 [facility] Comment on above: Performed By: #### T 7, CMP, LIPID, TSH #### [facility] [address] [place] [address] Dr. Emily Hercules Creatinine [Mass/Vol] 1.34 mg/dL Critically high 0.52-1.04 [facility] Comment on above: Performed By: #### T 7, CMP, LIPID, TSH #### [facility] [address] [place] [address] Dr. Emily Hercules EGFR-AF NEPALESE 51 mL/min/1.73m2 Critically low >=60 [facility] Comment on above: Performed By: #### T 7, CMP, LIPID, TSH #### [facility] [address] [place] [address] Dr. Emily Hercules EGFR-NON AF NEPALESE 42 mL/min/1.73m2 Critically low >=60 [facility] Comment on above: Performed By: #### T 7, CMP, LIPID, TSH #### [facility] [address] [place] [address] Dr. Emily Hercules Globulin (S) [Mass/Vol] 3.4 g/dL Normal [facility] Comment on above: Performed By: #### T 7, CMP, LIPID, TSH #### [facility] [address] [address] [address] Emily Hercules Glucose [Mass/Vol] 92 mg/dL Normal 74-[address] [facility] Comment on above: Performed By: #### T 7, CMP, LIPID, TSH #### [facility] [address] [address] [address] Emily Hercules Potassium [Moles/Vol] 3.8 mmol/L Normal 3.4-5.0 [facility] Comment on above: Performed By: #### T 7, CMP, LIPID, TSH #### [facility] [address] [address] [address] Emily Hercules Protein [Mass/Vol] 7.2 g/dL Normal 6.1-8.[address] [facility] Comment on above: Performed By: #### T 7, CMP, LIPID, TSH #### [facility] [address] [address] [address] Emily Hercules Sodium [Moles/Vol] 139 mmol/L Normal 137-[address] [facility] Comment on above: Performed By: #### T 7, CMP, LIPID, TSH #### [facility] [address] [address] [address] Emily Hercules Urea nitrogen [Mass/Vol] 21.0 mg/dL Critically high 7.0-17.0 [facility] Comment on above: Performed By: #### T 7, CMP, LIPID, TSH #### [facility] [address] [address] [address] Emily Hercules Urea nitrogen/Creatinine [Mass ratio] 15.7 mg/mg Normal [facility] Comment on above: Performed By: #### T 7, CMP, LIPID, TSH #### [facility] [address] [address] [address] Eimly Hercules TSHon 09-02-2021 TSH 1.130 uIU/mL Normal 0.470-4.680 [facility] Comment on above: Performed By: #### T 7, CMP, LIPID, TSH #### [facility] [address] [place] [address] Dr. Emily Hercules TSH RANGE SEE BELOW Normal [facility] Comment on above: Result Comment: <0.3 4 UIU/ml HYPERTHYROID 0.34-5.60 UIU/ml EUTHYROID >5.60 UIU/ml HYPOTHYROID Performed By: #### T 7, CMP, LIPID, TSH #### [facility] [address] [place] [address] Dr. Emily Hercules BNPon 08-24-2021 Natriuretic peptide B (Bld) [Mass/Vol] 98.0 pg/mL Normal <=450.0 [facility] Comment on above: Performed By: #### C MP, BNP, TSH, HSTROPN #### [facility] [address] [place] [address] Dr. Emily Hercules CBC AUTO DIFFon 08-24-2021 BASO # 0.0 103/ul Normal 0.0-0.1 [facility] Comment on above: Performed By: #### C MP, BNP, TSH, HSTROPN #### [facility] [address] [place] [address] Dr. Emily Hercules Basophils/100 WBC (Bld) 0.6 % Normal 0.2-2.0 [facility] Comment on above: Performed By: #### C MP, BNP, TSH, HSTROPN #### [facility] [address] [place] [address] Dr. Emily Hercules EO # 0.3 103/ul Normal 0.0-0.7 [facility] Comment on above: Performed By: #### C MP, BNP, TSH, HSTROPN #### [facility] [address] [place] [address] Dr. Emily Hercules Eosinophils/100 WBC (Bld) 4.1 % Normal 0.9-7.0 [facility] Comment on above: Performed By: #### C MP, BNP, TSH, HSTROPN #### [facility] [address] [place] [address] Dr. Emily Hercules Erythrocyte distribution width (RBC) [Ratio] 13.6 % Normal 11.0-15.0 [facility] Comment on above: Performed By: #### C MP, BNP, TSH, HSTROPN #### [facility] [address] [place] [address] Dr. Emily Hercules Hematocrit (Bld) [Volume fraction] 39.4 % Normal 36.0-48.0 [facility] Comment on above: Performed By: #### C MP, BNP, TSH, HSTROPN #### [facility] [address] [place] [address] Dr. Emily Hercules Hemoglobin (Bld) [Mass/Vol] 13.4 g/dL Normal 12.0-16.0 [facility] Comment on above: Performed By: #### C MP, BNP, TSH, HSTROPN #### [facility] [address] [place] [address] Dr. Emily Hercules IG # 0.02 10e3/ul Normal 0.00-0.03 [facility] Comment on above: Performed By: #### C MP, BNP, TSH, HSTROPN #### [facility] [address] [place] [address] Dr. Emily Hercules IG % 0.3 % Normal 0.0-0.5 [facility] Comment on above: Performed By: #### C MP, BNP, TSH, HSTROPN #### [facility] [address] [place] [address] Dr. Emily Hercules LYMPH # 1.8 103/ul Normal 1.2-3.8 [facility] Comment on above: Performed By: #### C MP, BNP, TSH, HSTROPN #### [facility] [address] [place] [address] Dr. Emily Hercules Lymphocytes/100 WBC (Bld) 25.9 % Normal 20.5-60.0 [facility] Comment on above: Performed By: #### C MP, BNP, TSH, HSTROPN #### [facility] [address] [place] [address] Dr. Emily Hercules MANUAL DIFF REQ NO Normal [facility] Comment on above: Performed By: #### C MP, BNP, TSH, HSTROPN #### [facility] [address] [place] [address] Dr. Emily Hercules MCH (RBC) [Entitic mass] 29.9 pg Normal 26.7-34.0 [facility] Comment on above: Performed By: #### C MP, BNP, TSH, HSTROPN #### [facility] [address] [place] [address] Dr. Emily Hercules MCHC (RBC) [Mass/Vol] 34.0 g/dL Normal 29.9-35.2 [facility] Comment on above: Performed By: #### C MP, BNP, TSH, HSTROPN #### [facility] [address] [place] [address] Dr. Emily Hercules MCV (RBC) [Entitic vol] 87.9 fL Normal 81.0-99.0 [facility] Comment on above: Performed By: #### C MP, BNP, TSH, HSTROPN #### [facility] [address] [place] [address] Dr. Emily Hercules MONO # 0.4 103/ul Normal 0.3-0.8 [facility] Comment on above: Performed By: #### C MP, BNP, TSH, HSTROPN #### [facility] [address] [place] [address] Dr. Emily Hercules Monocytes/100 WBC (Bld) 5.8 % Normal 1.7-12.0 [facility] Comment on above: Performed By: #### C MP, BNP, TSH, HSTROPN #### [facility] [address] [place] [address] Dr. Emily Hercules NEUT # 4.4 103/ul Normal 1.4-6.5 [facility] Comment on above: Performed By: #### C MP, BNP, TSH, HSTROPN #### [facility] [address] [place] [address] Dr. Emily Hercules Neutrophils/100 WBC (Bld) 63.3 % Normal 43.0-75.0 [facility] Comment on above: Performed By: #### C MP, BNP, TSH, HSTROPN #### [facility] [address] [address] [address] Emily Hercules Platelet mean volume (Bld) [Entitic vol] 11.7 fL Normal 9.5-13.5 [facility] Comment on above: Performed By: #### C MP, BNP, TSH, HSTROPN #### [facility] [address] [address] [address] Emily Hercules PLT 122 103/ul Critically low 150-450 [facility] Comment on above: Performed By: #### C MP, BNP, TSH, HSTROPN #### [facility] [address] [place] [address] Dr. Emily Hercules RBC 4.48 106/ul Normal 4.20-5.40 [facility] Comment on above: Performed By: #### C MP, BNP, TSH, HSTROPN #### [facility] [address] [place] [address] Dr. Emily Hercules WBC 6.9 103/ul Normal 4.0-11.0 [facility] Comment on above: Performed By: #### C MP, BNP, TSH, HSTROPN #### [facility] [address] [place] [address] Dr. Emily Hercules CTA CHEST WO W [...] NATY BALDERRAMA Date: 2021-08-24 17:14 Normal [facility] Covid-19 PCR (CVDTBH)on 07-30 SARS-CoV-2 (COVID-19) RNA SUKHWINDER+probe Ql (Unsp spec) Not detected Normal NOT DETECTED [facility] Comment on above: Result Comment: This test is not yet approved or cleared by the [place] FDA. When there are no FDA-approved or cleared tests available, and other criteria are met, FDA can make tests available under an emergency access mechanism called an Emergency Use Authorization (EUA). The EUA for this test is supported by the [place] of Health and Human Service's (HHS's) declaration [...] #### C MP, BNP, TSH, HSTROPN #### [facility] [address] [place] [address] Dr. Emily Hercules LACTATE/LACTIC ACIDon 2020 Lactate [Moles/Vol] 0.5 mmol/L Critically low 0.7-2.0 [facility] Comment on above: Performed By: #### C MP, BNP, TSH, HSTROPN #### [facility] [address] [place] [address] Dr. Emily Hercules PROF 14(COMP METB)on 021 Albumin [Mass/Vol] 3.7 g/dL Normal 3.5-5.0 [facility] Comment on above: Performed By: #### C MP, BNP, TSH, HSTROPN #### [facility] [address] [place] [address] Dr. Emliy Hercules Albumin/Globulin [Mass ratio] 1.0 {ratio} Normal [facility] Comment on above: Performed By: #### C MP, BNP, TSH, HSTROPN #### [facility] [address] [place] [address] Dr. Emiyl Hercules ALP [Catalytic activity/Vol] 63 U/L Normal 38-126 [facility] Comment on above: Performed By: #### C MP, BNP, TSH, HSTROPN #### [facility] [address] [place] [address] Dr. Emily Hercules ALT [Catalytic activity/Vol] 66 U/L Critically high 9-52 [facility] Comment on above: Performed By: #### C MP, BNP, TSH, HSTROPN #### [facility] [address] [place] [address] Dr. Emily Hercules Anion gap [Moles/Vol] 12.3 mmol/L Normal [facility] Comment on above: Performed By: #### C MP, BNP, TSH, HSTROPN #### [facility] [address] [place] [address] Dr. Emily Hercules AST [Catalytic activity/Vol] 48 U/L Critically high 14-36 [facility] Comment on above: Performed By: #### C MP, BNP, TSH, HSTROPN #### [facility] [address] [address] [address] Emily Hercules Bilirubin [Mass/Vol] 0.6 mg/dL Normal 0.2-1.3 [facility] Comment on above: Performed By: #### C MP, BNP, TSH, HSTROPN #### [facility] [address] [place] [address] Dr. Emily Hercules Calcium [Mass/Vol] 9.2 mg/dL Normal 8.4-10.2 [facility] [place] Comment on above: Performed By: #### C MP, BNP, TSH, HSTROPN #### [facility] [address] [place] [address] Dr. Emily Hercules Chloride [Moles/Vol] 103 mmol/L Normal 98-107 [facility] Comment on above: Performed By: #### C MP, BNP, TSH, HSTROPN #### [facility] [address] [place] [address] Dr. Emily Hercules CO2 [Moles/Vol] 25.2 mmol/L Normal 22.0-30.0 [facility] Comment on above: Performed By: #### C MP, BNP, TSH, HSTROPN #### [facility] [address] [place] [address] Dr. Emily Hercules Creatinine [Mass/Vol] 1.49 mg/dL Critically high 0.52-1.04 [facility] Comment on above: Performed By: #### C MP, BNP, TSH, HSTROPN #### [facility] [address] [place] [address] Dr. Emily Hercules EGFR-AF NEPALESE 45 mL/min/1.73m2 Critically low >=60 [facility] Comment on above: Performed By: #### C MP, BNP, TSH, HSTROPN #### [facility] [address] [place] [address] Dr. Emily Hercules EGFR-NON AF NEPALESE 37 mL/min/1.73m2 Critically low >=60 [facility] Comment on above: Performed By: #### C MP, BNP, TSH, HSTROPN #### [facility] [address] [place] [address] Dr. Emily Hercules Globulin (S) [Mass/Vol] 3.6 g/dL Normal [facility] Comment on above: Performed By: #### C MP, BNP, TSH, HSTROPN #### [facility] [address] [place] [address] Dr. Emily Hercules Glucose [Mass/Vol] 100 mg/dL Normal 74-106 [facility] [place] Comment on above: Performed By: #### C MP, BNP, TSH, HSTROPN #### [facility] [address] [place] [address] Dr. Emily Hercules Potassium [Moles/Vol] 4.5 mmol/L Normal 3.4-5.0 [facility] Comment on above: Performed By: #### C MP, BNP, TSH, HSTROPN #### [facility] [address] [place] [address] Dr. Emily Hercules Protein [Mass/Vol] 7.3 g/dL Normal 6.1-8.[address] [facility] Comment on above: Performed By: #### C MP, BNP, TSH, HSTROPN #### [facility] [address] [place] [address] Dr. Emily Hercules Sodium [Moles/Vol] 136 mmol/L Critically low 137-[address] [facility] Comment on above: Performed By: #### C MP, BNP, TSH, HSTROPN #### [facility] [address] [place] [address] Dr. Emily Hercules Urea nitrogen [Mass/Vol] 22.0 mg/dL Critically high 7.0-17.0 [facility] Comment on above: Performed By: #### C MP, BNP, TSH, HSTROPN #### [facility] [address] [place] [address] Dr. Emily Hercules Urea nitrogen/Creatinine [Mass ratio] 14.8 mg/mg Normal [facility] Comment on above: Performed By: #### C MP, BNP, TSH, HSTROPN #### [facility] [address] [place] [address] Dr. Emily Hercules PROTIMEon 08-24-2021 INR Coag (PPP) [Relative time] 1.08 {INR} Normal [facility] Comment on above: Performed By: #### C MP, BNP, TSH, HSTROPN #### [facility] [address] [place] [address] Dr. Emily Hercules INR GUIDELINES SEE BELOW Normal [facility] Comment on above: Result Comment: GUILLERMO RED INR: 2.0 - 3.0 CONDITIONS NOT LISTED BELOW 2.5 - 3.5 FOR PROSTHETIC HEART VALVE REPLACEMENT 2.5 - 3.5 RECURRENT THROMBOSIS Performed By: #### C MP, BNP, TSH, HSTROPN #### [facility] [address] [place] [address] Dr. Emily Hercules PT Coag (PPP) [Time] 11.6 s Normal 9.0-11.6 [facility] Comment on above: Performed By: #### C MP, BNP, TSH, HSTROPN #### [facility] [address] [place] [address] Dr. Emily Hercules PTTon 08-24-2021 aPTT Coag (Bld) [Time] 29.6 s Normal 22.3-36.2 [facility] Comment on above: Performed By: #### C MP, BNP, TSH, HSTROPN #### [facility] [address] [place] [address] Dr. Emily Hercules TROPONIN, HIGH SENSITIVITYon 08-24-2021 HSTROP 4.9 pg/mL Normal 4.0-35.5 [facility] Comment on above: Result Comment: CUT- OFF POINTS HAVE BEEN ESTABLISHED BASED ON THE FOURTH UNIVERSAL DEFINITIONS OF MYOCARDIAL INFARCTION. THE UPPER REFERENCE LIMIT (URL) OF TROPONIN, DEFINED THE 99TH PERCENTILE OF cTnI DISTRIBUTION IN A REFERENCE POPULATION, HAS BEEN CONFIRMED THE DECISION THRESHOLD FOR PA DIAGNOSIS. Performed By: #### C MP, BNP, TSH, HSTROPN #### [facility] [address] [place] [address] Dr. Emily Hercules HSTROP 7.0 pg/mL Normal 4.0-35.5 [facility] Comment on above: Result Comment: CUT- OFF POINTS HAVE BEEN ESTABLISHED BASED ON THE FOURTH UNIVERSAL DEFINITIONS OF MYOCARDIAL INFARCTION. THE UPPER REFERENCE LIMIT (URL) OF TROPONIN, DEFINED THE 99TH PERCENTILE OF cTnI DISTRIBUTION IN A REFERENCE POPULATION, HAS BEEN CONFIRMED THE DECISION THRESHOLD FOR PA DIAGNOSIS. Performed By: #### C MP, BNP, TSH, HSTROPN #### [facility] [address] [address] [address] Emily Hercules TSHon 08-24-2021 TSH 1.614 uIU/mL Normal 0.470-4.680 [facility] Comment on above: Performed By: #### C MP, BNP, TSH, HSTROPN #### [facility] [address] [address] [address] Emily Hercules TSH RANGE SEE BELOW Normal [facility] Comment on above: Result Comment: <0.3 4 UIU/ml HYPERTHYROID 0.34-5.60 UIU/ml EUTHYROID >5.60 UIU/ml HYPOTHYROID Performed By: #### C MP, BNP, TSH, HSTROPN #### [facility] [address] [address] [address] Emily Hercules US KARINE DOP LEG [...] MARCIAL BOB Date: 2021-08-24 16:22 Normal [facility] Test (Serum)on Test, Serum Negative Normal [facility] Comment on above: Performed By: #### 3 [id number] ####[facility] [address] [place] [address] CBC With Differentialon 04-28 Basophils Auto #/vol (Bld) 0.06 10*3/uL Normal 0.01-0.07 [facility] Comment on above: Performed By: #### 2 [id number] ####[facility] [address] [place] [address] Basophils/100 WBC Auto (Bld) 0.7 % Normal 0.1-1.2 [facility] Comment on above: Performed By: #### 2 268554 ####[facility] [address] [place] [address] Eosinophils 0.51 10*3/uL High 0.04-0.50 [facility] are Comment on above: Performed By: #### 2 086806 ####[facility] [address] [place] [address] Eosinophils/100 leukocytes 6.1 % Normal 0.0-8.1 [facility] Comment on above: Performed By: #### 2 [id number] ####[facility] [address] [place] [address] Erythrocyte distribution width Auto Ratio (RBC) 13.2 % Normal 12.0-15.4 [facility] Comment on above: Performed By: #### 2 361546 ####[facility] [address] [place] [address] Erythrocytes (RBC) 4.67 10*6/uL Normal 3.85-5.10 [facility] Comment on above: Performed By: #### 2 165709 ####[facility] [address] [place] [address] Erythrocytes (RBC) 0.0 /100{WBCs} Normal [facility] Comment on above: Performed By: #### 2 031342 ####[facility] [address] [place] [address] Erythrocytes (RBC) 0.00 10*3/uL Normal [facility] Comment on above: Performed By: #### 2 263987 ####[facility] [address] [place] [address] Hematocrit (HCT) 40.8 % Normal 36.5-46.6 [facility] Comment on above: Performed By: #### 2 570386 ####[facility] [address] [place] [address] Hemoglobin mass conc (Bld) 13.6 g/dL Normal 11.8-15.3 [facility] Comment on above: Performed By: #### 2 260994 ####[facility] [address] [place] [address] Imm Grans Absolute 0.02 10*3/uL Normal 0.00-0.21 [facility] Comment on above: Performed By: #### 2 499374 ####[facility] [address] [place] [address] Immature granulocytes #/vol (Bld) 0.2 % Normal [facility] Comment on above: Performed By: #### 2 217999 ####[facility] [address] [place] [address] Lymphocytes 2.15 10*3/uL Normal 0.40-2.84 [facility] are Comment on above: Performed By: #### 2 782960 ####[facility] [address] [place] [address] Lymphocytes/100 leukocytes 25.8 % Normal 15.7-50.5 [facility] Comment on above: Performed By: #### 2 784162 ####[facility] [address] [place] [address] MCH 29.1 pg Normal 27.5-33.0 [facility] Comment on above: Performed By: #### 2 785037 ####[facility] [address] [place] [address] MCHC mass conc (RBC) 33.3 g/dL Normal 30.1-35.0 [facility] Comment on above: Performed By: #### 2 335774 ####[facility] [address] [place] [address] MCV 87.4 fL Normal 85.4-100.0 [facility] Comment on above: Performed By: #### 2 012703 ####[facility] [address] [place] [address] Monocytes 0.57 10*3/uL Normal 0.25-0.83 [facility] Comment on above: Performed By: #### 2 221114 ####[facility] [address] [place] [address] Monocytes/100 leukocytes 6.9 % Normal 4.8-12.7 [facility] Comment on above: Performed By: #### 2 217596 ####[facility] [address] [place] [address] Neutrophils 5.01 10*3/uL Normal 1.95-6.85 [facility] are Comment on above: Performed By: #### 2 149295 ####[facility] [address] [place] [address] Neutrophils/100 leukocytes 60.3 % Normal 36.8-73.2 [facility] Comment on above: Performed By: #### 2 773338 ####[facility] [address] [facility] [place] [address] Platelet mean volume (PMV) 12.0 fL Normal 9.9-12.1 [facility] Comment on above: Performed By: #### 2 674561 ####[facility] [address] [facility] [place] [address] Platelets 207 10*3/uL Normal 155-404 [facility] e Comment on above: Performed By: #### 2 168903 ####[facility] [address] [facility] [place] [address] RDW SD 42.2 fL Normal 39.3-48.6 [facility] Comment on above: Performed By: #### 2 403524 ####[facility] [address] [facility] [place] [address] WBC (Leukocytes) 8.3 10*3/uL Normal 4.4-9.9 [facility] Comment on above: Performed By: #### 2 [id number] ####[facility] [address] [place] [address] Partial Thromboplastin Timeo n 05-10-2017 aPTT 28.4 s Normal 22.1-35.3 [facility] Comment on above: Result Comment: Luis allen note new Heparin Therapeutic range effective 02/14/17.Heparin Therapeutic Range: 71 - 97 sec Performed By: #### 3 [id number] ####[facility] [address] [place] [address] Prothrombin Timeon INR Coag RelTime (PPP) 1.00 {INR} Normal 0.85-1.16 [facility] Comment on above: Result Comment: Coum vanesa Therapy:1.5 - 2.0 Low Intensity Therapy2.0 - 3.0 Moderate Intensity Therapy2.5 - 3.5 High (1) Intensity Therapy3.0 - 4.0 High (2) Intensity Therapy Performed By: #### 3 158610 ####[facility] [address] [place] [address] Prothrombin time (PT) Coag time (PPP) 13.1 s Normal 11.3-14.5 [facility] are Comment on above: Performed By: #### 3 [id number] ####[address] [address] Vital Signs Date Time Vital Sign Value Performing Clinician Facility 04-28-2025 09:49-0400 Body height 160 cm [employer] Work Phone: [facility] 04-28-2025 09:49-0400 Body mass index (BMI) [Ratio] 35.78 kg/m2 [employer] Work Phone: [facility] 04-28-2025 09:49-0400 Body weight 91.63 kg [employer] Work Phone: [facility] 04-17-2025 09:13-0400 Body height 165.1 cm [employer] Work Phone: [facility] 04-17-2025 09:13-0400 Body mass index (BMI) [Ratio] 33.61 kg/m2 [employer] Work Phone: [facility] 04-17-2025 09:13-0400 Body weight 91.63 kg [employer] Work Phone: [facility] 04-17-2025 09:13-0400 Diastolic blood pressure 75 mm[Hg] Clyde Juventino DO Work Phone: [facility] 04-17-2025 09:13-0400 Systolic blood pressure 115 mm[Hg] Clyde Choi DO Work Phone: [facility] 04-12-2025 11:31-0400 Body temperature 98.3 [degF] Cabrera Jones MD Work Phone: [facility] 04-12-2025 11:31-0400 Diastolic blood pressure 60 mm[Hg] Cabrera Jones MD Work Phone: [facility] 04-12-2025 11:31-0400 Heart rate 60 /min Cabrera Jones MD Work Phone: [facility] 04-12-2025 11:31-0400 Respiratory rate 16 /min Cabrera Jones MD Work Phone: [facility] 04-12-2025 11:31-0400 SaO2% (BldA) [Mass fraction] 98 % Cabrera Jones MD Work Phone: [facility] 04-12-2025 11:31-0400 Systolic blood pressure 98 mm[Hg] Cabrera Jones MD Work Phone: [facility] 04-12-2025 06:00-0400 Body weight 94 kg Cabrera Jones MD Work Phone: [facility] 04-11-2025 20:00-0400 Inhaled oxygen flow rate 8 L/min Cabrera Jones MD Work Phone: [facility] 04-11-2025 12:06-0400 Body height 160.02 cm Cabrera Jones MD Work Phone: [facility] 12-24-2024 14:38-0500 Body height 160 cm Edison Ardon MD Work Phone: [facility] 12-24-2024 14:38-0500 Body mass index (BMI) [Ratio] 33.3 kg/m2 Edison Ardon MD Work Phone: [facility] 12-24-2024 14:38-0500 Body temperature 98.2 [degF] Edison Ardon MD Work Phone: [facility] 12-24-2024 14:38-0500 Body weight 85.28 kg Edison Ardon MD Work Phone: [facility] 12-24-2024 14:38-0500 Diastolic blood pressure 79 mm[Hg] Edison Ardon MD Work Phone: [facility] 12-24-2024 14:38-0500 Heart rate 89 /min Edison Ardon MD Work Phone: [facility] 12-24-2024 14:38-0500 Respiratory rate 14 /min Edison Ardon MD Work Phone: [facility] 12-24-2024 14:38-0500 SaO2% (BldA) [Mass fraction] 98 % Edison Ardon MD Work Phone: [facility] 12-24-2024 14:38-0500 Systolic blood pressure 117 mm[Hg] Edison Ardon MD Work Phone: [facility] 11-24-2024 13:51-0500 Body mass index (BMI) [Ratio] 34.72 kg/m2 Edison Ardon MD Work Phone: [facility] 11-24-2024 13:51-0500 Body weight 88.91 kg Edison Ardon MD Work Phone: [facility] Encounters Encounter Date Encounter Type Care Provider Facility Start: 07-01-2025 End: 07-01-2025 ambulatory Cabrera Jones MD Work Phone: [facility] Work Phone: Start: 07-01-2025 End: 07-01-2025 Departed Referred Cabrera Francis MD -LAB [facility] Start: 06-12-2025 End: 06-12-2025 ambulatory Cabrera Jones MD Work Phone: [facility] Work Phone: Start: 06-12-2025 End: [...] management of inpatient Clyde Choi DO -[facility] Work Phone: Start: 12-24-2024 End: 12-24-2024 Patient encounter procedure Edison Ardon MD Work Phone: [facility] Comment on above: Diaphragmatic hernia without obstruction and without gangrene (Primary Dx) Start: 12-24-2024 End: 12-24-2024 ambulatory EDISON ARDON Facility:[facility] Start: 12-24-2024 End: 12-24-2024 Subsequent hospital visit by physician [facility] Qb1 (I-Stat) Radiology Comment on above: Diaphragmatic hernia without obstruction and without gangrene [K44.9] Start: 11-24-2024 End: 11-24-2024 Telephone encounter Edison Ardon MD Work Phone: [facility] Comment on above: Appointment Consult; Appointment Confirmation Request Outside [facility] Records; Received Outside Medical Records Start: 05-12-2022 End: 05-12-[address] CABRERA JONES Facility:[facility] Start: 09-20-2021 End: 09-20-[address] CABRERA JONES Facility:[facility] Start: 09-15-2021 End: 09-16-[address] CABRERA JONES Facility:[facility] Start: 09-02-2021 End: 09-03-[address] CABRERA JONES Facility:[facility] Start: 08-24-2021 End: 08-24-[address] MARCIAL BOB Facility:[facility] Start: 05-16-2017 End: 05-16-2017 Ambulatory Tito VALLE Facility:[facility] Start: 05-10-2017 Ambulatory Tito VALLE Facility:[facility] Start: 05-09-2017 Ambulatory Tito VALLE Facility:[facility] Procedures Date Procedure Procedure Detail Performing Clinician Start: 06-12-2025 Urine culture Cabrera shirley MD Work Phone: Start: 04-12-2025 Complete blood count with white cell differential, automated Clyde Choi DO Work Phone: Start: 04-11-2025 GLUCOSE POCT GLUCOMETERS Clyde hCoi DO Work Phone: Start: 12-24-2024 Radiologic exam esop hagus single contrast study Edison Ardon MD Work Phone: Plan of Treatment Date Care Activity Detail Author Start: 07-01-2025 Bacteria identified in Urine by Culture Urine Culture [facility] Start: 07-01-2025 Urine culture [facility] Start: 06-12-2025 Bacteria identified in Urine by Culture Urine Culture [facility] Start: 06-12-2025 Urine culture [facility] Start: 04-28-2025 End: 04-28-2025 Patient encounter procedure 04/28/2025 9:30 AM EDT Office Visit [facility] [address] [place] [address] Clyde Choi, DO [address] [place] [address] [address] [facility] Start: 04-17-2025 End: 04-17-2025 Patient encounter procedure 04/17/2025 9:15 AM EDT Office Visit [facility] [address] [place] [id number] Clyde Choi, DO [address] [place] [address] [facility] [address] [facility] Start: 04-12-2025 [facility] Start: 04-11-2025 Hospital admission [facility] Start: 04-11-2025 Resection of Appendi x, Percutaneous Endoscopic Approach Resection of Appendix, Percutaneous Endoscopic Approach [facility] Start: 12-24-2024 End: 12-24-2024 Patient encounter procedure Radiology Comment on above: Hiatal Hernia Start: 06-29-2024 Covid-19 Vaccine ( season) Covid-19 Vaccine ( season) [facility] Start: 06-29-2024 Covid-19 Vaccine ( season) Covid-19 Vaccine ( season) [facility] Start: 06-29-2024 Influenza vaccination Influenza Vacc ine (#1) [facility] Start: 2023 Pneumococcal Vaccine : 50+ (1 of 1 - PCV) Pneumococcal Vaccine: 50+ (1 of 1 - PCV) [facility] Start: 2023 Screening for malign ant neoplasm of lung Lung Cancer Screening [facility] Start: 2023 Shingrix Vaccine (1 of 2) Shingrix Vaccine (1 of 2) [facility] Start: 2018 Diabetes Screening Diabetes Screenin g [facility] Start: 2018 Lipid panel Lipid Screening [facility] Start: 2018 Screening for malign ant neoplasm of colon [facility] Start: 2013 Screening for malign ant neoplasm of breast Mammogram Screening [facility] Start: 1994 Screening for malign ant neoplasm of cervix Cervical Cancer Screening [facility] Start: 1992 Hepatitis B Vaccine (1 of 3 - 19+ 3-dose series) Hepatitis B Vaccine (1 of 3 - 19+ 3-dose series) [facility] Start: 1992 Urine microalbumin profile DTaP,Tdap,Td Vaccine (1 - Tdap) [facility] Start: 1991 Anxiety Screening Anxiety Screening [facility] Start: 1991 Depression Screening Depression Scre ening [facility] Start: 1991 Hepatitis C screening Hepatitis C Sc reening [facility] Start: 1991 HIV screening HIV Screening [facility] Patient Education Know your Meds [facility] Work Phone: Patient referral [facility] Work Phone: End: 12-24-2025 XR Esophagus Views W contrast PO XR ESOPHAGRAM Radiology Routine Diaphragmatic hernia without obstruction and without gangrene 1 Occurrences starting 11/24/2024 until 12/24/2025 [facility] Work Phone: Comment on above: 1 Occurrences starti ng 11/24/2024 until 12/24/2025 Immunizations Immunization Date Immunization Notes Care Provider Emmanuel mullen 06-28-2020 influenza virus vacc ine, unspecified formulation Gi (I-Stat) [facility] Payers Date Payer Category Payer Medicare [id number] 2025 Self-pay 2018 Medicaid [id number] 2018 Medicare (Managed Care) 1.2. [id number] 2018 Unknown [facility] MEDIC[facility] ADVANTAGE HMO [id number] 2018-Present [phone] [address] [place] [address] HMO [id number] 1973 Unknown [id number] 93 1973 Unknown [id number] 93 1973 Unknown [id number] 93 1973 Unknown [id number] 93 1973 Unknown [id number] [id number] 93 1973 Unknown [id number] 259 1973 Unknown [id number] 259 1959 Medicaid [id number] 1959 Unknown [id number] Medicare [id number] Unknown MMO [id number] Unknown [id number] 31 Unknown [id number] [id number] 31 Unknown [id number] 31 Social History Date Type Detail Facility Start: 11-24-2024 [facility] Start: 05-06-2001 End: 05-06-2019 History of tobacco use Current smoker [facility] Start: 05-06-2001 End: 05-06-2019 History of tobacco use Cigarette Smoker [facility] Start: 11-24-2024 End: 04-28-2025 Cigarettes smoked current (pack per day) - Reported 1.5 [facility] Start: 11-24-2024 Tobacco use and exposure Smokeless tobacco non-user [facility] Start: 11-24-2024 End: 12-24-2024 Alcoholic beverage intake Ex-drinker (finding) [facility] Start: 11-24-2024 End: 04-28-2025 Tobacco use panel [facility] National Score (1-10 0), lower number is lower risk Not on file [facility] Start: 11-24-2024 Tobacco Comment using E cig [facility] Start: 1975 Sex assigned at Not on file [facility] Tobacco smoking stat [facility] Tobacco smoking consumption unknown [facility] Start: 04-17-2025 Tobacco smoking stat [facility] Never smoked tobacco [facility] Start: 04-17-2025 Tobacco use and exposure Former smokeless tobacco user [facility] Start: 04-17-2025 End: 04-28-2025 Alcoholic beverage intake Defer [facility] Start: 04-17-2025 Tobacco Comment vape [facility] Sex Female (finding) [facility] Start: 1975 Sex Assigned At Female F [facility] Goals Date Patient Goal Desired Activity /State Functional Status Date Assessment Result Facility 04-12-2025 Functional status Patient is Pro gressing Toward [facility] Work Phone: Mental Status Date Assessment Result Facility 04-12-2025 Cognitive function Cognitive Sta tus Patient at Baseline [facility] Work Phone: Clinical Notes 03-01-2022 to [...] follow-ups on file. documented in this encounter [facility] 04-17-2025 History of Presen t illness Narrative [...] PCL 04/15/2025 10:01 Attached To: GENERAL PATHOLOGY [[id number]] Orders Only on 04/15/25 with Clyde Choi DO Source Information Sonia Jose Luis [facility] Document History ASSESSMENT AND PLAN: [...] follow-ups on file. documented in this encounter [facility] 04-11-2025 Evaluation note Diagnosis Onset Date Resolution Leukocytosis resolved April 11 025 11:26am Right lower quadrant pain resolved April 11, 2025 11:26am Acute appendicitis inactive March 292024 11:26am [facility] Work Phone: 1(766) 373-494203-08-2025 NoteHNO ID: [id number] Author: EDISON ARDON MD Service: ? Author Type: Physician Type: Progress Notes Filed: 01/03/2025 09:17 Note Text: I have read and reviewed the documentation and agree. I wish to add the followingI wish to add the following findings which will be communicated back to the requesting physician. Edison Ardon MD [facility] STAFF PHYSICIAN NOTE OF PERSONAL INVOLVEMENT IN [...] SERVICE: Dec 24, 2024 TIME OF SERVICE: [address] [place], [place] [address]74[address]03-08-2025 History of Present illness Narrative* Edison Ardon MD - 01/03/2025 9:12 AM EST I have read and reviewed the documentation and agree. I wish to add the followingI wish to add the following findings which will be communicated back to the requesting physician. Edison Ardon MD [facility]FF PHYSICIAN NOTE OF PERSONAL INVOLVEMENT IN [...] THORACIC SURGERY OUTPATIENT CONSULT NOTE Kiya Bhat [id number] Requesting Provider: Self Thoracic Physician: Edison Ardon [...] by: Duglas Manjarrez Patient-Entered Questionnaire [facility] Esophageal Questionnaire 12/23/2024 Domain Symptom Raw Score [...] (Range 6-30) Incomplete Incomplete documented in [facility]Mercy [facility]02-26-2025 NoteHNO ID: [id number] Author: HEENA MANJARREZ MD Service: ? Author Type: Fellow Type: Progress Notes Filed: 01/03/2025 09:17 Note Text: [facility] THORACIC SURGERY OUTPATIENT CONSULT NOTE Kiya Bhat [id number] Requesting Provider: Self Thoracic Physician: Edison Ardon [...] by: Duglas Manjarrez Patient-Entered Questionnaire [facility] Esophageal Questionnaire 12/23/2024 Domain Symptom Raw Score [...] Incomplete (Range 6-36) Incomplete (Range 6-30) [facility] History of Present illness Narrative* Sonia Bennett [...] PATIENT PRESENTS WITH AN IMPLANTABLE OR ATTACHED FAMILY DEVELOPMENT EXTENSION SPECIALIST: No RADIOLOGY DEPARTMENT: General X-ray: Exam(s) Completed: GI/ Procedure(s): Esophogram with barium contrast PERIPHERAL IV DATA: Not applicable SIGNED BY: RT Wil(Sybil) December 24, 2024 1:50 PM documented in this encounterMercy Health02-26-2025 NoteHNO ID: [id number] Author: SONIA BENNETT RT(R) Service: Radiology Author [...] PATIENT PRESENTS WITH AN IMPLANTABLE OR ATTACHED FAMILY DEVELOPMENT EXTENSION SPECIALIST: No RADIOLOGY DEPARTMENT: General X-ray: Exam(s) Completed: GI/ Procedure(s): Esophogram with barium contrast PERIPHERAL IV DATA: Not applicable SIGNED BY: Sonia Bennett RT(R) December 24, 2024 1:50 [facility]01-27-2025 Telephone encounter Note* Telephone Encounter - Trice Louis - 11/24/2024 4:37 PM EST Patient confirmed appointment scheduled with Dr. Ardon with barium on 12/24/24 [facility] Work Phone: 1(646) 986-344301-27-2025 Miscellaneous Notes* Telephone Encounter - Trice Louis [...] 11/24/2024 12:58 PM EST LOCAL PATIENT Received [employer] Staff Message from Gill Brar is former [...] office for scheduling. Please call pt at [phone]. Patient was informed consultation could be at [facility] or [facility] [place]: No Patient Registration: Registration complete/updated: yes Insurance card(s) scanned in [facility] with in the past year: No Pt's OOTU is active. Ok to communicate to pt via OOTU yes Medical Records: Records in [facility] (internal CC records): Yes (old) Imaging in [facility] (internal [facility] records): Yes (old) Care Everywhere [...] for triage Renae Elliott documented in this encounterMercy Health01-27-2025 Telephone encounter Note * Telephone Encounter - Renae Holly - 11/24/2024 4:04 PM EST Received outside office note (scanned) to [facility]. Renae Chaudhry Customer Technical Services Manager [facility] Work Phone (unformatted): [phone] Miscellaneous Notes* Telephone Encounter - Renae Holly - 11/24/2024 4:04 PM EST Received outside office note (scanned) to [facility]. Renae Chaudhry Customer Technical Services Manager * Telephone Encounter - Renae Holly - 11/24/2024 2:12 PM EST Attempt #1 Requested Medical Records from the office of Dr. Cabrera Jones Spoke to: Jacki Phone #: [phone] Fax #: [phone] Jacki agreed to fax the last office note Renae Richa Elliott November 24, 2024 2:12 PM documented in this encounterMercy Health01-27-2025 Telephone encounter Note * Telephone Encounter - Renae Holly - 11/24/2024 2:12 PM EST Attempt #1 Requested Medical Records from the office of Dr. Cabrera Jones Spoke to: Jacki Phone #: [phone] Fax #: [phone] Jacki agreed to fax the last office note Renae Richa Elliott November 24, 2024 2:12 PM [facility]01-27-2025 Telephone encounter Note* Telephone Encounter - Jenni [...] with diet exercise) esophagram Jenni Mg, RN [facility]01-27-2025 Telephone encounter Note* Telephone Encounter - Renae Holly - 11/24/2024 12:58 PM EST LOCAL PATIENT Received [facility] Staff Message from Gill Brar is former pt of Edison Arodn M.D., Ph.D. by SELF Patient last seen in 2019 Patient diagnosis/Reason for consult: Diaphragmatic hernia triage process explained: Yes Patient will receive a call from Thoracic NPM after triage review with surgeon to discuss any additional testing and/or consults that will be scheduled. Pt will then receive a call from our scheduling office for scheduling. Please call pt at [phone]. Patient was informed consultation could be at [facility] or [facility] [place]: No Patient Registration: Registration complete/updated: yes Insurance card(s) scanned in [facility] with in the past year: No Pt's OOTU is active. Ok to communicate to pt via OOTU yes Medical Records: Records in [facility] (internal CC records): Yes (old) Imaging in [facility] (internal [facility] records): Yes (old) Care Everywhere - queried yes, downloaded No Linked Outside Organizations (list): n/a OSH Records Requested: none Date: N/A Outside Hospital(s) requested records from: n/a Received: none Uploaded: N/A. Waiting on additional records: No. Missing (list): N/A OSH Pathology Slides Requested: none Date: N/A Outside Hospital(s) slides requested from: n/a [facility] Radiology Imaging Requested: none Date: [...] NPM for triage Renae Elliott [facility] Work Phone (unformatted): [phone] Telephone encounter Note* Telephone Encounter - Gill Brar - 11/24/2024 11:32 AM EST .RECEIVED CALL FROM: Patient PATIENT INFORMATION: Name: Kiya Bhat : 1975 (home) [phone] (cell) Email: [email or web address] Referring Provider: No referring provider defined for this encounter. Phone: N/A Fax: Requested Surgeon: Edison Ardon M.D., Ph.D. Reason for appointment/diagnosis: Diaphragmatic hernia without obstruction and without gangrene Gill Brar November 24, 2024 11:32 AM [facility]01-27-2025 Miscellaneous Notes* Telephone Encounter - Gill Brar - 11/24/2024 11:32 AM EST .RECEIVED CALL FROM: Patient PATIENT INFORMATION: Name: Kiya Bhat : 1975 (home) [phone] (cell) Email: [email or web address] Referring Provider: No referring provider defined for this encounter. Phone: N/A Fax: Requested Surgeon: Edison Ardon M.D., Ph.D. Reason for appointment/diagnosis: Diaphragmatic hernia without obstruction and without gangrene Gill Brar November 24, 2024 11:32 AM [facility] NoteChief Complaint consultation for sebaceous cyst HPI [...] type 2: Mother and Brother. Heart disease: Mother.[facility] HealthComment on above:Result Comment: Electronically Signed By: FRANK GALLO, Hemal Moore\Date and Time Signed: 03/01/22 16:21 EDTEvaluation note* Diagnosis Diaphragmatic hernia without obstruction and without gangrene- Primary [facility] Diagnosis Diaphragmatic hernia without obstruction and without gangrene [facility]* Diagnosis Diaphragmatic hernia without obstruction and without gangrene- Primary [facility]* Diagnosis Other acute appendicitis- [facility] Diagnosis Other acute appendicitis- [facility] Diagnostic Procedure Only (Routine) - Authorized Specialty Diagnoses / Procedures Referred By Chandler berkowitz Referred To Contact XR IMAGING Diagnoses Diaphragmatic hernia without obstruction and without gangrene Procedures XR ESOPHAGRAM RADIOLOGIC EXAM ESOPHAGUS SINGLE CONTRAST STUDY Edison Ardon MD [address] [place] [address] [place] [id number] Referral ID Status Reason Start Date Expiration Date Visits Requested Visits Authorized [id number] Authorized Auto-Generat ed Referral 11/24/2024 12/24/2025 1 1 [facility] Summary Purpose Family History No Family [...] section and content) DATE CREATED AUTHOR 04/24/2018 [facility] DATE CREATED AUTHOR AUTHOR'S ORGANIZ ATION 03/03/2022 [facility] DATE CREATED AUTHOR AUTHOR'S ORGANIZ ATION 05/18/2022 [facility] DATE CREATED AUTHOR AUTHOR'S ORGANIZ ATION 01/05/2025 [facility] DATE CREATED AUTHOR AUTHOR'S ORGANIZ ATION 04/29/2025 [facility] dical [facility] DATE CREATED AUTHOR AUTHOR'S ORGANIZ ATION 07/03/2025 [facility] Source Comments (unrecognize d section and content) In the event this informatio n is protected by the Federal Confidentiality of Alcohol and Drug Abuse Patient Records regulations: The Federal rules restrict any use of the information to criminally investigate or prosecute any alcohol or drug abuse patient.[facility] HealthIn the event this information is protected by the Federal Confidentiality of Alcohol and Drug Abuse Patient Records regulations: The Federal rules restrict any use of the information to criminally investigate or prosecute any alcohol or drug abuse patient.[facility] HealthIn the event this information is protected by the Federal Confidentiality of Alcohol and Drug Abuse Patient Records regulations: The Federal rules restrict any use of the information to criminally investigate or prosecute any alcohol or drug abuse patient.[facility] HealthIn the event this information is protected by the Federal Confidentiality of Alcohol and Drug Abuse Patient Records regulations: The Federal rules restrict any use of the information to criminally investigate or prosecute any alcohol or drug abuse patient.[facility] HealthIn the event this information is protected by the Federal Confidentiality of Alcohol and Drug Abuse Patient Records regulations: The Federal rules restrict any use of the information to criminally investigate or prosecute any alcohol or drug abuse patient.[facility] Reason for Visit (unrecogniz ed section and [...] ESOPHAGUS SINGLE CONTRAST STUDY Edison Ardon MD [address] [place] [address] Phone: tel: [place] [id number] Referral ID Status Reason Start Date Expiration Date V isits Requested Visits Authorized [id number] Closed Auto-Generate d Referral 11/24/2024 12/24/2025 1 1 Reason Comments Consult Reason Comments 1st pow lap appy IP Reason Comments 3rd pow lap appy IP Discuss colonoscopy Care Teams (unrecognized sec tion and content) Ladle Handler Relationship Specialty Start Date End Date Cabrera Jones MD [address] [place] [address] PCP - General Family Medicine 11/24/24 Junior Araya Jr., MD [address] [place] [address] Referring 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/19 Ladle Handler Relationship Specialty Start Date End Date Cabrera Jones MD [address] [place] [address] PCP - General Family Medicine 11/24/24 Junior Araya Jr., MD [address] [place] [address] Referring 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/19 Ladle Handler Relationship Specialty Start Date End Date Cabrera Jones MD [address] [place] [address] PCP - General Family Medicine 11/24/24 Junior Araya Jr., MD [address] [place] [address] Referring 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/19 Ladle Handler Relationship Specialty Start Date End Date Cabrera Jones MD [address] [place] [address] PCP - General Family Medicine 11/24/24 Junior Araya Jr., MD [address] [place] [address] Referring 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/19 Ladle Handler Relationship Specialty Start Date End Date Cabrera Jones MD [address] [place] [address] PCP - General Family Medicine 11/24/24 Junior Araya Jr., MD [address] [place] [address] [place] [address] Referring 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/19 Ladle Handler Relationship Specialty Start Date End Date Cabrera Jones MD [address] [facility] [place] [address] PCP - General Family Medicine 04/14/25 Ladle Handler Relationship Specialty [place] [address] [place] [phone] PCP - General Family Medicine 04/14/25 Ladle Handler Relationship Specialty [place] [address] [place] [phone] PCP - General Family Medicine 04/14/25 Team [...] BE BASED ON THE PRIMARY CLINICAL RECORDS. [facility] [email or web address] [facility]. provides no warranty or guarantee of the accuracy or completeness of information in this document.
== END 2025-07-20 08:47 | disposition home or self-care (01) ==
LOC: CT 08:46
PROVIDERS: PCP Family Medicine; Visit Provider Family Medicine
DX: R31.9 Hematuria, unspecified (principal); N20.0 Calculus of kidney; K44.9 Diaphragmatic hernia without obstruction or gangrene
CPT/HCPCS: 74176

== ENCOUNTER 2025-07-23 10:28 | Outpatient (REF) | payer MEDICARE, MEDICAID, SELFPAY ==
--- OUTSIDE RECORDS SUMMARY | 2025-07-10 04:30 | XMS_ITS ---
Author Organization [facility] Ma in [place] Address [address] [place] [address] Care Team Providers Care Log Snaker Name Role Phone Luis Angel Jones Primary Care Provider Allergies No Known Allergies REASON FOR VISIT Presents to office alone for 1 month f/u on Adipex Medications Medication SIG (Take, Route, Frequency, Duration) Notes Start Date End Date Status traMADol HCl 50 MG 1 tablet as needed Orally tid; Duration: 7 days N20.0 N20.0 07/08/2025 Active Ventolin HFA 108 (90 Base) MCG/ACT 2 puff as needed Inhalation every 4 hrs 02/10/2025 Active Tamsulosin HCl 0.4 MG 1 capsule Orally O nce a day; Duration: 30 days 07/08/2025 Active Adipex-P 37.5 MG 1 tablet before ansley kfast Orally Once a day 07/10/2025 Active tiZANidine HCl 4 MG 2 tabs Orally qhs; Duration: 30 days 01/16/2025 Active Amoxicillin-Pot Clavulanate 875-125 MG 1 tablet Orally every 12 hrs; Duration: 10 days 07/01/2025 Active Ferrous Sulfate 325 (65 Fe) MG 1 tablet Orally Daily Active hydrOXYzine HCl 25 MG 1 tablet as needed Orally qid; Duration: 10 days 02/10/2025 Active Meloxicam 15 MG 1 tablet Orally Once a day; Duration: 30 days 01/20/2025 Active Pantoprazole Sodium 40 MG TAKE 1 TABLET BY MOUTH EVERY DAY; Duration: 90 Active ZyrTEC 10 MG 1 tablet Orally Once a day Active Albuterol Sulfate HFA 108 (90 Base) MCG/ACT INHALE 2 PUFFS BY MOUTH EVERY 4 HOURS NEEDED; Duration: 17 Active Social History Tobacco Use: Social [...] ast year? No Points 0 Interpretation Negative Vital Signs Weight 200.4 lbs 07/10/2025 Height 63 in 07/10/2025 Blood pressure systolic 144 mm Hg 07/10/20 25 Blood pressure diastolic 84 mm Hg 025 BMI 35.5 kg/m2 07/10/2025 Encounters Encounter Location Date Provider Diagnosis [facility] [address] [place] [address] 07/10/2025 Luis Angel Jones Cervical radiculopat hy M54.12 and Kidney stone N20.0 Assessments Encounter Date Diagnosis (ICD Code) Assessment Notes Treatment Notes Treatment Clinical Notes Section Notes 07/10/2025 Cervical radiculopathy (ICD-10 - M54.12) 07/10/2025 Kidney stone (ICD-10 - N20.0) needs ct scan Plan Of Treatment Medication Medication Name Sig Start Date Stop Date Notes Adipex-P 37.5 MG 1 tablet before ansley kfast Orally Once a day 07/10/2025 Treatment Notes Assessment Notes Kidney stone needs ct scan Next Appt Details Provider Name:Luis Angel Jones, 08:30:00 AM, [address] [place], [address], Medications Administered Medication Instructions Date of Administration Dosage Notes Triamcinolone 40 mg/ml 07/10/2025 120 mg Orphenadrine Citrate 07/10/2025 60 mg Ketorolac Tromethamine 07/10/2025 60 mg Progress Notes * Kiya BHAT MDOB:[birth year] (50 yo F)Acc No.[id number]:07/10/2025 Progress Note Patient: Kiya ELIZABETH Provider: Shira Jones ([facility])MD :1975 A ge:50 Y S ex:Female Date:07/10/2025 Address:[address] [place] [address], [id number] Check In:08:32 AM ESTCheck O ut:09:08 AM EST Subjective: * Chief Complaints: * P resents to office alone for 1 month f/u on Adipex * HPI: G eneral: Unale to take the adipex fully this month - does feels helps to suppress appetite - SInusitis - feels aweful so not taking it Myalgia - mre in back an hipa nd neck int R shoulder - then headache tying to pass kidney stone. * Active Problem List L50.9 Hives Modified On:06/07/2023 Status:confirmed Z00.00 Well adult Modified On:06/07/2023 Status:confirmed D69.6 Thrombocytopenia, un specified Modified On:08/20/2023 Status:confirmed J45.901 Asthma exacerbation Modified On:10/01/2023 Status:confirmed L25.9 Contact dermatitis Modified On:05/02/2024 Status:confirmed J01.90 Acute sinusitis Modified On:10/16/2024 Status:confirmed E66.01 Morbid (severe) obes ity due to excess calories Modified On:11/12/2024U Status:confirmed M54.12 Cervical radiculopat hy Modified On:01/16/2025U Status:confirmed N39.0 Acute UTI (urinary t ract infection) Modified On:02/10/2025U Status:confirmed R42 Vertigo Modified On:02/10/2025 Status:confirmed J44.1 Acute exacerbation o f chronic obstructive airways disease Modified On:05/12/2025U Status:confirmed J44.9 COPD (chronic obstru ctive pulmonary disease) Modified On:05/12/2025U Status:confirmed N20.0 Kidney stone Modified On:09/10/2025W/U Status:confirmed * Medical History: * Surgical History: G allbladder Tubal Ligation Right Knee Scope Kidney Stones Appendectomy- Dr Jauregui 04/11/2025 * Hospitalization/Major Diagno stic Procedure: * Family History: F ather: alive. M other: alive, diagnosed with Unspecified essential hypertension, Diabetes mellitus without mention of complication, type II or unspecified type, not stated as uncontrolled, Unspecified heart disease. B rother(s): alive, diagnosed [...] PUFFS BY MOUTH EVERY 4 HOURS NEEDED Amoxicillin-Pot Clavulanate 875-125 MG Tablet 1 tablet Orally every 12 hrs Ferrous Sulfate 325 (65 Fe) MG Tablet 1 tablet Orally Daily hydrOXYzine HCl 25 MG Tablet 1 tablet as needed Orally qid Meloxicam 15 MG Tablet 1 tablet Orally Once a day Pantoprazole Sodium 40 MG Tablet Delayed Release TAKE 1 TABLET BY MOUTH EVERY DAY Tamsulosin HCl 0.4 MG Capsule 1 capsule Orally Once a day tiZANidine HCl 4 MG Tablet 2 tabs Orally qhs traMADol HCl 50 MG Tablet 1 tablet as needed Orally tid N20.0, Notes to Pharmacist: N20.0Ventolin HFA(Albuterol Sulfate HFA) 108 (90 Base) MCG/ACT Aerosol Solution 2 puff as needed Inhalation every 4 hrs ZyrTEC(Cetirizine HCl) 10 MG Tablet Chewable 1 tablet Orally Once a day Medication List reviewed and reconciled with the patientTaking Adipex-P(Phentermine HCl) 37.5 MG Tablet 1 tablet before breakfast Orally Once a day Taking Albuterol Sulfate HFA 108 (90 Base) MCG/ACT Aerosol Solution INHALE 2 PUFFS BY MOUTH EVERY 4 HOURS NEEDED Taking Amoxicillin-Pot Clavulanate 875-125 MG Tablet 1 tablet Orally every 12 hrs Taking Ferrous Sulfate 325 (65 Fe) MG Tablet 1 tablet Orally Daily Taking hydrOXYzine HCl 25 MG Tablet 1 tablet as needed Orally qid Taking Meloxicam 15 MG Tablet 1 tablet Orally Once a day Taking Pantoprazole Sodium 40 MG Tablet Delayed Release TAKE 1 TABLET BY MOUTH EVERY DAY Taking Tamsulosin HCl 0.4 MG Capsule 1 capsule Orally Once a day Taking tiZANidine HCl 4 MG Tablet 2 tabs Orally qhs Taking traMADol HCl 50 MG Tablet 1 tablet as needed Orally tid N20.0, Notes to Pharmacist: N20.0Taking Ventolin HFA(Albuterol Sulfate HFA) 108 (90 Base) MCG/ACT Aerosol Solution 2 puff as needed Inhalation every 4 hrs Taking ZyrTEC(Cetirizine HCl) 10 MG Tablet Chewable 1 tablet Orally Once a day Medication List reviewed and reconciled with the patient * Allergies: N .K.D.A.no[Allergies Verified] Objective: * Vitals: W t:200.4lbs, Ht: 63 in, BP:144/84mm Hg, BMI:35.5Index, Ht-cm: 160.02 cm, Wt-k.9 kg. Assessment: * Assessment: 1. C ervical radiculopathy - M54.12 (Primary) 2 . K idney stone - N20.0? Plan: * Treatment: 2. K roseann rob Notes: needs ct scan * Therapeutic Injections: Triamcinolone 40 mg/ml : 120 mg (Route: Intramuscular) given by CESAR Anderson on left gluteus (Cervical radiculopathy, Kidney stone) Ketorolac Tromethamine : 60 mg (Route: Intramuscular) given by CESAR Anderson on right gluteus (Cervical radiculopathy, Kidney stone) Orphenadrine Citrate : 60 mg (Route: Intramuscular) given by CESAR Anderson on left gluteus (Cervical radiculopathy, Kidney stone) * Procedure Codes: 9 6372 THERAP.INJ. OF MED. INTRAMUSCULAR OR [id number] TMC ACET,PER 10MG., Units: 12.00 J1885 TORADOL, PER 15 MG, Units: 4.00 , Modifiers: JZ J2360 NORFLEX,UP TO 60MG. * Preventive Medicine: Screenings/Counseling: B [place] ACTION PLAN Above Normal BMI Follow-up D ietary management education, guidance, and counseling See treatment section of progress note for complete details of management plan. * * Sign off status: Completed Visit Status: C HK (Check Out) true * Provider: Shira Jones (TTC)MD Date: 0 07/10/2025 Generated for Katheryn vazquez/Davide/eTransmitting on: 0 07/23/2025 10:33 AM EDT History and Physical Notes * HPI (History of Present Illness) Category Sub-Category Detail Notes Category Not es General Unale to take the adipex fully this month - does feels helps to suppress appetite - SInusitis - feels aweful so not taking it Myalgia - mre in back an hipa nd neck int R shoulder - then headache tying to pass kidney stone
--- OUTSIDE RECORDS SUMMARY | 2025-07-23 10:33 | XMS_ITS | Clinical Summary ---
Author Organization [facility] Address [address] [place] [id number] Care Team Providers Care Chemist Biological Name Role Phone Marshal Faria MD, Junior Francis Unavailable [phone] Lance Jones MD Primary Care Provider [phone] Allergies No known active allergies Medications * [...] is lower risk 7 12/24/2024 Data from: https://www.neighborhoodatlas.medicine.[facility].edu/. Last address used for calculation [address] 12/24/2024 Comments No Sex and Gender [...] MEDICARE ADVANTAGE O MEDICAID [place] Care Teams Chemist Biological Relationship Specialty Start Date End Date Lance Jones MD [address] [place] [address] PCP - General Family Medicine 11/24/24 Junior Araya Jr., MD [address] [place] [address] [place] [address] Referring 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/19
--- OUTSIDE RECORDS SUMMARY | 2025-07-23 10:33 | XMS_ITS | Clinical Summary ---
Author Organization [facility] Address [address] [place] [address] Care Team Providers Care Early Education Teacher Name Role Phone Lance Jones MD Primary Care Provider [phone] Allergies No known active allergies Medications pantoprazole [...] AM EDT Office Visit [facility] [address] [facility] [address] [place] [address] Clyde Jauregui DO Other acute appendicitis (Primary Dx) 04/28/2025 Travel from Last 3 Months Family History Relation [...] EDT Plan of Treatment Not on file Insurance [employer] MEDICARE ADVANTAGE Care Teams Early Education Teacher Relationship Specialty Start Date End Date Lance Jones MD [address] [place] [address] PCP - General Family Medicine 04/14/25
--- OUTSIDE RECORDS SUMMARY | 2025-07-23 10:33 | XMS_ITS | Encounter Summary ---
Author Organization [facility] Address [address] [place] [address] Care Team Providers Care Plasterer Helper Name Role Phone Lance Jones MD Primary Care Provider [phone] Encounter Details Date Type Department Care Team (Late st Contact Info) Description 04/15/2025 Orders Only [facility] [address] [facility] [address] [place] [id number] Clyde Jauregui DO [address] [facility] [address] [place] [address] Social History Tobacco Use Types Packs/Day Years [...] on filedocumented in this encounter Care Teams Plasterer Helper Relationship Specialty Start Date End Date Lance Jones MD [address] [facility] [place] [address] PCP - General Family Medicine 04/14/25 documented as of this encounter
--- OUTSIDE RECORDS SUMMARY | 2025-07-23 10:33 | XMS_ITS | Patient Health Record ---
Author Organization [facility] in [place] Address [address] [place] [address] Care Team Providers Care Patient Navigator Name Role Phone Luis Angel Vigil Primary Care Provider Allergies No Known Allergies Results Component Value Reference Range Notes US renal bladder Reviewed date:07/31/2024 08:44:37 PM Interpretation: Performing Lab: Notes/Report: Source Facility: [place] [address] Ultrasound Report Signed Patient: KIYA ALEJANDRA MR#: [id number] : 1975 Acct:[id number] Age/Sex: 49 / F ADM Date: 07/31/24 Loc: US Attending Dr: Cabrera Vigil M.D. Ordering Physician: Cabrera Vigil M.D. Date of Service: 07/31/24 Procedure(s): US renal bladder Accession Number(s): [id number] cc: Cabrera Vigil M.D. [address] [address] Patient Name: KIYA ALEJANDRA MRN: [id number] date: 1975 Sex: F Assigned Patient Location: US Current Patient Location: US Accession/Order Number: [id number] Exam Date: 07/31/2024 07:10 Report Date: 07/31/2024 13:16 At the request of: CABRERA VIGIL Procedure: US renal bladder EXAMINATION: US renal bladder HISTORY: NEPHROLITHIASIS N20.0 COMPARISON: No relevant comparison available. TECHNIQUE: Ultrasound examination was performed of the bladder. FINDINGS: Right Kidney: Normal in size, contour and echotexture. The cortex measures 0.9 cm. No solid cortical mass or hydronephrosis. Multiple echogenic foci measuring up to 6 mm, nonobstructing nephrolithiasis Height: 5.27 cm Length: 9.33 cm Width: 5.02 cm Left Kidney: Normal in size, contour and echotexture. The cortex measures 1.1 cm. No solid cortical mass or hydronephrosis. Multiple echogenic foci measuring up to 7 mm, nonobstructing nephrolithiasis Height: 4.44 cm Length: 11.49 cm Width: 3.71 cm Urinary bladder: Prevoid volume 258 mL. Post void volume 13 mL Ureteral jets visualized bilaterally US/US renal bladder IMPRESSION: Bilateral nonobstructing nephrolithiasis Electronically authenticated by: LOREE VALE Date: 07/31/2024 13:16 Dictated By: Loree Vale M.D. Signed By: 07/31/24 1318 DD/ 1316 TD/TT: Oil Distributor: COVID-19, Flu A+B IH Reviewed date:07/01/2025 09:45:49 AM Interpretation: Performing Lab: Notes/Report: COVID Neg FLU A Neg FLU B Neg Control Present LACTATE or LACTIC ACID Reviewed date:04/12/2025 12:26:57 PM Interpretation: Performing Lab: Notes/Report: [facility] , Lactate/Lactic Acid 1.2 0.4-2.0 mmol/L Performing Lab: see note ML - [facility] LB PROF 14(COMP METB) Reviewed date:04/12/2025 12:26:57 PM Interpretation: Performing Lab: Notes/Report: [facility] , Sodium 144 136-145 mmol/L Potassium 3.7 3.5-5.1 mmol/L Chloride 105 98-107 mmol/L Carbon Dioxide 25.8 21.0-32.0 mmol/L Anion Gap 16.9 Glucose 144 74-106 mg/dL Blood Urea Nitrogen 27.0 7.0-18.0 mg/dL Creatinine 1.09 0.55-1.02 mg/dL Estimated GFR ( Berna >60 >=60 mL/min/1.73m 2 Estimated GFR (Non- Nahomi 53 >=60 mL/min/1.73m 2 BUN Creatinine Ratio 24.8 Calcium 9.4 8.5-10.1 mg/dL Bilirubin Total 0.4 0.2-1.0 mg/dL Aspartate Amino Transferase 14 15-37 U/L Alanine Aminotransferase 24 14-59 U/L Alkaline Phosphatase 71 46-116 U/L Total Protein 7.2 6.4-8.2 g/dL Albumin Level 3.9 3.4-5.0 g/dL Globulin 3.3 Albumin Globulin Ratio 1.2 Performing Lab: see note ML - [facility] HCG Qualitative* Reviewed date:04/12/2025 12:26:57 PM Interpretation: Performing Lab: Notes/Report: [facility] , HCG Qualitative NEGATIVE NEGATIVE Performing Lab: see note - [facility] LB UA RANDOM W or MICROSCOPIC Reviewed date:06/14/2025 01:24:11 PM Interpretation: Performing Lab: Notes/Report: [facility] , Color Urine LT. YELLOW YELLOW Clarity Urine SL CLOUDY CLEAR Specific [place] Urine 1.010 1.005-1.025 pH Urine 7.0 5.0-9.0 Protein Urine NEGATIVE NEG/TRACE mg/dL Glucose Urine UA NEGATIVE NEGATIVE mg/dL Bilirubin Urine NEGATIVE NEGATIVE Ketones Urine NEGATIVE NEGATIVE mg/dL Blood Urine NEGATIVE NEGATIVE Nitrite Urine POSITIVE NEGATIVE Urobilinogen Urine 0.2 0.2-1.0 EU/dL Leukocyte Esterase Urine MODERATE NEGATIVE WBC Urine 75-100 NONE SEEN #/HPF RBC Urine 2-5 0-2 #/HPF Bacteria Urine LARGE NONE SEEN #/HPF Mucus Urine NONE SEEN NONE SEEN Squamous Epithelial Cell Urine FEW NONE/RARE #/LPF Crystals Seen? None Seen None Seen #/HPF Cast Seen? NONE SEEN NONE SEEN #/LPF Performing Lab: see note ML - [facility] LB UA RANDOM W or MICROSCOPIC Reviewed date:07/01/2025 01:07:48 PM Interpretation: Performing Lab: Notes/Report: [facility] , Color Urine YELLOW YELLOW Clarity Urine SL CLOUDY CLEAR Specific [place] Urine 1.025 1.005-1.025 pH Urine 6.0 5.0-9.0 Protein Urine TRACE NEG/TRACE mg/dL Glucose Urine UA NEGATIVE NEGATIVE mg/dL Bilirubin Urine NEGATIVE NEGATIVE Ketones Urine NEGATIVE NEGATIVE mg/dL Blood Urine LARGE NEGATIVE Nitrite Urine NEGATIVE NEGATIVE Urobilinogen Urine 1.0 0.2-1.0 EU/dL Leukocyte Esterase Urine NEGATIVE NEGATIVE WBC Urine 0-2 NONE SEEN #/HPF RBC Urine 50-75 0-2 #/HPF Bacteria Urine TRACE NONE SEEN #/HPF Mucus Urine NONE SEEN NONE SEEN Squamous Epithelial Cell Urine RARE NONE/RARE #/LPF Crystals Seen? Seen None Seen #/HPF Calcium Oxalate Crystals Urine MODERATE Cast Seen? NONE SEEN NONE SEEN #/LPF Urine Culture Indicated ALREADY ORDERED Performing Lab: see note ML - [facility] Urine Culture - FR Reviewed date:07/04/2025 04:16:05 PM Interpretation: Performing Lab: Notes/Report: [facility] , Urine Culture - [facility] See Below For Report No Growth 2 Days Urine Culture - FR Urine Culture - FR No Growth 2 Days Urine Culture - [facility] [place]rine Culture - [facility] Testing performed a [facility] No Growth 2 Days Urine Culture - FR Urine Culture - [facility] [address] [id number] No Growth 2 Days Urine Culture - FR Performing Lab: see note - [facility] US renal bladder Reviewed date:07/08/2025 12:37:02 PM Interpretation: Performing Lab: Notes/Report: Source Facility: [place] [address] [place] [address] Ultrasound Report Signed Patient: KIYA ALEJANDRA MR#: [id number] : 1975 Acct:[id number] Age/Sex: 50 / F ADM Date: 07/08/25 Loc: US Attending Dr: Cabrera Vigil M.D. Ordering Physician: Cabrera Vigil M.D. Date of Service: 07/08/25 Procedure(s): US renal bladder Accession Number(s): [id number] cc: Cabrera Vigil M.D. [place] [address] Patient Name: KIYA ALEJANDRA MRN: [id number] date: 1975 Sex: F Assigned Patient Location: Current Patient Location: Accession/Order Number: [id number] Exam Date: 07/08/2025 08:20 Report Date: 07/08/2025 09:42 At the request of: CABRERA VIGIL MD Procedure: US renal bladder BILATERAL RENAL AND BLADDER ULTRASOUND CLINICAL HISTORY: Blood In Urine COMPARISON: 07/31/[address] 04/11/2025 Estimation of renal size is approximately 9.7 cm on the right and 11.5 cm on the left. The kidneys are slightly lobulated and there may be some cortical scarring. There are multiple echogenic foci with twinkle artifact bilaterally correlating with renal stones seen on CT study. On the right, the largest is at the lower pole measuring 14 x 11 x 9 mm and at the superior pole measuring 13 x 7 x 7 mm. On the left, the largest stone is at the upper pole measuring 6 x 4 x 3 mm. No hydronephrosis is identified. No renal mass lesions were imaged. There is no perinephric fluid. The urinary bladder is partially distended with a volume of 95 ml. There our bilateral ureteral jets is also an echogenic focus with ringdown artifact near the ureterovesical junction on the right measuring 7 x 4 x 5 mm in size which may be a nonobstructing stone. The post void bladder residual is 15 mL. US/US renal bladder IMPRESSION: BILATERAL NEPHROLITHIASIS AND SUSPECTED NONOBSTRUCTING STONE AT THE RIGHT URETEROVESICAL JUNCTION Impression dictated by: Gaby Hutchinson M.D. 07/08/2025 9:42 AM Dictation Location: [place] [address] Electronically authenticated by: [id number] Y Date: 07/08/2025 09:42 Dictated By: Gaby Hutchinson M.D. Signed By: 07/08/2545 DD/ 1 TD/TT: Oil Distributor: CT abdomen pelvis wo con Reviewed date:07/20/2025 01:12:24 PM Interpretation: Performing Lab: Notes/Report: Source Facility: [place] [address] [place] [address] CT Scan Report Signed Patient: KIYA ALEJANDRA MR#: [id number] : 1975 Acct:[id number] Age/Sex: 50 / F ADM Date: 07/20/25 Loc: CT Attending Dr: Cabrera Vigil M.D. Ordering Physician: Cabrera Vigil M.D. Date of Service: 07/20/25 Procedure(s): CT abdomen pelvis wo con Accession Number(s): [id number] cc: Cabrera Vigil M.D. [address] [address] Patient Name: KIYA ALEJANDRA MRN: [id number] date: 1975 Sex: F Assigned Patient Location: CT Current Patient Location: CT Accession/Order Number: [id number] Exam Date: 07/20/2025 08:55 Report Date: 07/20/2025 10:07 At the request of: CABRERA VIGIL MD Procedure: CT abdomen pelvis wo con CT ABDOMEN AND PELVIS WITHOUT CONTRAST COMPARISON: 04/11/2025 CLINICAL DATA: Right flank pain and hematuria. History of kidney stones. Spiral images were obtained through the abdomen and pelvis without contrast. This CT exam was performed using one or more following dose reduction techniques: Automated exposure control, adjustment of the mA and/or kV according to patient size, or use of iterative reconstruction technique. Limited cuts through the lung bases show similar large hiatal hernia containing stomach and left colon. There is minor atelectasis and/or scarring. A punctate nodular density is again seen at the right base. Assessment of the intra-abdominal organs is slightly limited by the absence of contrast. The gallbladder is surgically absent. There is slight common duct prominence however no choledocholithiasis. No intrahepatic masses are identified. The spleen, pancreas and adrenal glands show no acute findings. The right kidney is smaller than the left and there is multifocal scarring. There are several right renal stones, the largest at the lower pole measuring up to 7 - 8 mm. There is also a tiny stone or 2 adjacent stones at the lower pole on the left. No hydronephrosis is identified. There is no ureteral dilatation though there is a stone at the right ureterovesical junction measuring 4 - 5 mm. There is also a stone near ureterovesical junction on the left measuring almost 7 mm in size. These are new since the comparison. The abdominal aorta is normal caliber. No developing lymphadenopathy is seen. There is no ascites. The small bowel loops are not dilated. Mild stool is present within the colon. There are some colonic diverticula on the left. Subtle levoscoliotic curvature and mild degenerative changes are seen at the spine. Images through the pelvis show no dilated small bowel. There is interval appendectomy. There is stool at the cecum and distal colon. No additional colonic diverticula are noted. The uterus and adnexa are within normal limits. The bladder wall is top borderline thickened for the degree of distention. There are mildly patulous inguinal rings containing fat. There is no ascites. CT/CT abdomen pelvis wo con IMPRESSION: LARGE HIATAL HERNIA. BILATERAL NEPHROLITHIASIS, GREATER ON THE RIGHT NONOBSTRUCTING BILATERAL URETEROVESICAL JUNCTION STONES. UNDER DISTENDED URINARY BLADDER WITH BORDERLINE WALL THICKENING. CLINICAL CORRELATION IS RECOMMENDED TO EXCLUDE ANY POSSIBILITY OF CYSTITIS. Impression dictated by: Gaby Hutchinson M.D. 07/20/2025 10:07 AM Dictation Location: [employer] Electronically authenticated by: [id number] Y Date: 07/20/2025 10:07 Dictated By: Gaby Hutchinson M.D. Signed By: 07/20/25 1010 DD/ 1007 TD/TT: Oil Distributor: CBC AUTO DIFF Reviewed date:04/12/2025 12:26:57 PM Interpretation: Performing Lab: Notes/Report: [facility] , White Blood Count 13.3 4.0-11.0 10 3/uL Red Blood Count 4.81 4.20-5.40 10 6/uL Hemoglobin 14.2 12.0-16.0 g/dL Hematocrit 42.2 36.0-48.0 % Mean Corpuscular Volume 87.7 81.0-99.0 fL Mean Corpuscular Hemoglobin 29.5 26.7-34.0 pg Mean Corpuscular HGB Conc 33.6 29.9-35.2 g/dL Red Cell Distribution Width 12.5 11.0-15.0 % Platelet Count 178 150-450 10 3/uL Mean Platelet Volume 11.7 9.5-13.5 fL Neutrophils Percent Auto 85.8 43.0-75.0 % Lymphocytes Percent Auto 8.3 20.5-60.0 % Monocytes Percent Auto 4.5 1.7-12.0 % Eosinophils Percent Auto 0.5 0.9-7.0 % Basophils Percent Auto 0.5 0.2-2.0 % Immature Granulocytes Pct Auto 0.4 0.0-0.5 % Neutrophils Absolute Auto 11.4 1.4-6.5 10 3/uL Lymphocytes Absolute Auto 1.1 1.2-3.8 10 3/uL Monocytes Absolute Auto 0.6 0.3-0.8 10 3/uL Eosinophils Absolute Auto 0.1 0.0-0.7 10 3/uL Basophils Absolute Auto 0.1 0.0-0.1 10 3/uL Immature Granulocytes Abs Auto 0.05 0.00-0.03 10 3/uL Performing Lab: see note ML - [facility] MR cervical spine wo con Reviewed date:02/06/2025 03:23:04 PM Interpretation: Performing Lab: Notes/Report: Source Facility: [place] [address] Magnetic Resonance Report Signed Patient: KIYA ALEJANDRA MR#: [id number] : 1975 Acct:[id number] Age/Sex: 49 / F ADM Date: 02/06/25 Loc: MRI Attending Dr: Cabrera Vigil M.D. Ordering Physician: Cabrera Vigil M.D. Date of Service: 02/06/25 Procedure(s): MR cervical spine wo con Accession Number(s): [id number] cc: Cabrera Vigil M.D. [place] [address] Patient Name: KIYA ALEJANDRA MRN: [id number] date: 1975 Sex: F Assigned Patient Location: MRI Current Patient Location: MRI Accession/Order Number: [id number] Exam Date: 02/06/2025 12:46 Report Date: 02/06/2025 12:54 At the request of: CABRERA VIGIL MD Procedure: MR cervical spine wo con EXAMINATION: MRI C-SPINE WITHOUT IV CONTRAST CLINICAL HISTORY: Neck pain for 1.5 months. Limited range of motion. COMPARISON: Cervical spine 01/16/2025 TECHNIQUE: Multiecho imaging was performed in the sagittal and axial planes without contrast administration. FINDINGS: Vertebral body heights appear maintained. No bone marrow edema is present. Cervical medullary junction appears normal. No abnormal cord signal is seen. No paraspinal mass. No prevertebral soft tissue swelling is noted. At C2-3: No posterior disc pathology. No neural canal or foraminal stenosis. At C3-4: No posterior disc pathology. No neural canal or foraminal stenosis. At C4-5: No posterior disc pathology. No neural canal or foraminal stenosis. At C5-6: Disc osteophyte complex present causing mild canal stenosis. No significant neural foraminal stenosis. At C6-7: Disc osteophyte complex present causing mild canal stenosis. No significant neural foraminal stenosis At C7-T1: No posterior disc pathology. No neural canal or foraminal stenosis. MR/MR cervical spine wo con IMPRESSION: Degenerative disease as described above at C5-6 and C6-7 Impression dictated by: Ozzy Bailey Jr., D.O.02/06/2025 12:54 PM Dictation Location: [place] [address] Electronically authenticated by: [id number] Y Date: 02/06/2025 12:54 Dictated By: Ozzy Bailey M.D. Signed By: 02/06/25 1257 DD/ 1254 TD/TT: Oil Distributor: XR cervical spine 5V Reviewed date:01/17/2025 11:46:05 AM Interpretation: Performing Lab: Notes/Report: Source Facility: [place] [address] [place] [address] XRay Report Signed Patient: KIYA ALEJANDRA MR#: [id number] : 1975 Acct:[id number] Age/Sex: 49 / F ADM Date: 01/16/25 Loc: RAD Attending Dr: Cabrera Vigil M.D. Ordering Physician: Cabrera Vigil M.D. Date of Service: 01/16/25 Procedure(s): XR cervical spine 5V Accession Number(s): [id number] cc: Cabrera Vigil M.D. [address] [address] Patient Name: KIYA ALEJANDRA MRN: [id number] date: 1975 Sex: F Assigned Patient Location: [facility] Current Patient Location: [facility] Accession/Order Number: [id number] Exam Date: 01/16/2025 12:25 Report Date: 01/16/2025 12:26 At the request of: CABRERA VIGIL MD Procedure: XR cervical spine 5V CERVICAL SPINE 5 views: CLINICAL HISTORY: Cervical Radiculopathy COMPARISON: None FINDINGS: Mild spondylosis C5-6. Oblique views appear unremarkable. Vertebral body heights appear maintained. No prevertebral soft tissue swelling. XR/XR cervical spine 5V IMPRESSION: MILD SPONDYLOSIS C5-6. Impression dictated by: Ozzy Bailey Jr., D.OMimi01/16/2025 12:26 PM Dictation Location: [place] [address] Electronically authenticated by: [id number] Y Date: 01/16/2025 12:26 Dictated By: Ozzy Bailey M.D. Signed By: 01/16/25 1229 DD/ 1226 TD/TT: Oil Distributor: CT abdomen pelvis wo con Reviewed date:07/27/2024 11:47:07 AM Interpretation: Performing Lab: Notes/Report: Source Facility: [place] [address] CT Scan Report Signed Patient: KIYA ALEJANDRA MR#: [id number] : 1975 Acct:[id number] Age/Sex: 49 / F ADM Date: 07/25/24 Loc: ER Attending Dr: Ordering Physician: Mariah Sanchez Date of Service: 07/25/24 Procedure(s): CT abdomen pelvis wo con Accession Number(s): [id number] cc: Cabrera Vigil M.D. [address] [address] Patient Name: KIYA ALEJANDRA MRN: [id number] date: 1975 Sex: F Assigned Patient Location: ER Current Patient Location: ER Accession/Order Number: [id number] Exam Date: 07/25/2024 21:31 Report Date: 07/25/2024 22:13 At the request of: MARIAH SANCHEZ Procedure: CT abdomen pelvis wo con EXAM: CT abdomen pelvis wo con HISTORY: Hematuria COMPARISON: CT ABD/PELVIS WO CON Date 06/04/2019 TECHNIQUE: Multiple axial images of the abdomen and pelvis are obtained without the use of IV contrast material. Coronal and sagittal reformatted sequences are submitted for review. FINDINGS: Partially visualized large hiatal hernia is seen containing the partially visualized stomach. No intra-abdominal stomach is seen. The heart size is normal. The lung bases appear clear. Patient is post cholecystectomy. Surgical clips are seen in the gallbladder fossa. The liver, spleen, pancreas and bilateral adrenal glands appear unremarkable on this noncontrast examination. Multiple intrarenal calculi are seen bilaterally measuring up to 7 mm. There is no evidence for right hydronephrosis. Mild left hydronephrosis and proximal left hydroureter seen down to a 4.5 mm calculus seen in the proximal left ureter at the level of the inferior L3 vertebral body. Circumferential wall thickening of the urinary bladder is seen, suggestive of mild infectious/inflammatory process. Please correlate clinically. Nonobstructive bowel pattern is seen. Normal-appearing appendix is visualized. Large volume of stool is seen in the ascending colon. No significant bowel wall thickening is seen. No significant free fluid or abnormal fluid collection is seen in the abdomen and pelvis. The vascular structures demonstrate normal caliber. Small fat-containing bilateral inguinal hernia is seen. No destructive osseous lesion is seen. CT/CT abdomen pelvis wo con IMPRESSION: Mild left hydronephrosis and proximal left hydroureter seen down to a 4.5 mm calculus seen in the proximal left ureter at the level of the inferior L3 vertebral body. Circumferential wall thickening of the urinary bladder is seen, suggestive of mild infectious/inflammatory process. Please correlate clinically. Partially visualized large hiatal hernia is seen containing the partially visualized stomach. Electronically authenticated by: KATHRYN MCLEOD Date: 07/25/2024 22:13 Dictated By: Kathryn Mcleod M.D. Signed By: 07/25/242215 DD/ 12 TD/TT: Oil Distributor: URINE MICROSCOPIC ONLY Reviewed date:07/27/2024 11:47:07 AM Interpretation: Performing Lab: Notes/Report: [facility] , WBC Urine 0-2 NONE SEEN #/HPF RBC Urine >100 0-2 #/HPF Bacteria Urine TRACE NONE SEEN #/HPF Mucus Urine NONE SEEN NONE SEEN Squamous Epithelial Cell Urine FEW NONE/RARE #/LPF Crystals Seen? None Seen None Seen #/HPF Cast Seen? NONE SEEN NONE SEEN #/LPF Yeast Urine SEEN NONE SEEN Urine Culture Indicated NO Performing Lab: see note ML - [facility] LB UA (CLEAN or CATCH) ELECTRIC LINEMAN or M ICRO IF IND. Reviewed date:07/27/2024 11:47:07 AM Interpretation: Performing Lab: Notes/Report: [facility] , Color Urine DK. BROWN YELLOW Clarity Urine SLIGHTLY CLOUDY CLEAR Specific [place] Urine >=1.030 1.005-1.025 pH Urine 5.5 5.0-9.0 Protein Urine 30 NEG/TRACE mg/dL Glucose Urine UA NEGATIVE NEGATIVE mg/dL Bilirubin Urine SMALL NEGATIVE Ketones Urine NEGATIVE NEGATIVE mg/dL Blood Urine LARGE NEGATIVE Nitrite Urine NEGATIVE NEGATIVE Urobilinogen Urine 1.0 0.2-1.0 EU/dL Leukocyte Esterase Urine NEGATIVE NEGATIVE Urine Microscopic Indicated YES Performing Lab: see note ML - [facility] LB PROF 14(COMP METB) Reviewed date:07/27/2024 11:47:07 AM Interpretation: Performing Lab: Notes/Report: [facility] , Sodium 141 136-145 mmol/L Potassium 3.8 3.5-5.1 mmol/L Chloride 103 98-107 mmol/L Carbon Dioxide 25.6 21.0-32.0 mmol/L Anion Gap 16.2 Glucose 101 74-106 mg/dL Blood Urea Nitrogen 20.0 7.0-18.0 mg/dL Creatinine 0.97 0.55-1.02 mg/dL Estimated GFR ( Berna >60 >=60 Estimated GFR (Non- Nahomi >60 >=60 BUN Creatinine Ratio 20.6 Calcium 9.6 8.5-10.1 mg/dL Bilirubin Total 0.6 0.2-1.0 mg/dL Aspartate Amino Transferase 72 15-37 U/L Alanine Aminotransferase 163 14-59 U/L Alkaline Phosphatase 80 46-116 U/L Total Protein 7.1 6.4-8.2 g/dL Albumin Level 4.1 3.4-5.0 g/dL Globulin 3.0 Albumin Globulin Ratio 1.4 Performing Lab: see note ML - [facility] LB LIPASE Reviewed date:07/27/2024 11:47:07 AM Interpretation: Performing Lab: Notes/Report: [facility] , Lipase 27.0 16.0-77.0 U/L Performing Lab: see note ML - [facility] LB LACTATE or LACTIC ACID Reviewed date:07/27/2024 11:47:07 AM Interpretation: Performing Lab: Notes/Report: [facility] , Lactate/Lactic Acid 0.7 0.4-2.0 mmol/L Performing Lab: see note ML - [facility] LB CBC AUTO DIFF Reviewed date:07/27/2024 11:47:07 AM Interpretation: Performing Lab: Notes/Report: [facility] , White Blood Count 9.0 4.0-11.0 10 3/uL Red Blood Count 4.93 4.20-5.40 10 6/uL Hemoglobin 14.8 12.0-16.0 g/dL Hematocrit 43.8 36.0-48.0 % Mean Corpuscular Volume 88.8 81.0-99.0 fL Mean Corpuscular Hemoglobin 30.0 26.7-34.0 pg Mean Corpuscular HGB Conc 33.8 29.9-35.2 g/dL Red Cell Distribution Width 12.9 11.0-15.0 % Platelet Count 124 150-450 10 3/uL Mean Platelet Volume 12.9 9.5-13.5 fL Neutrophils Percent Auto 59.2 43.0-75.0 % Lymphocytes Percent Auto 31.1 20.5-60.0 % Monocytes Percent Auto 5.4 1.7-12.0 % Eosinophils Percent Auto 3.2 0.9-7.0 % Basophils Percent Auto 0.8 0.2-2.0 % Immature Granulocytes Pct Auto 0.3 0.0-0.5 % Neutrophils Absolute Auto 5.3 1.4-6.5 10 3/uL Lymphocytes Absolute Auto 2.8 1.2-3.8 10 3/uL Monocytes Absolute Auto 0.5 0.3-0.8 10 3/uL Eosinophils Absolute Auto 0.3 0.0-0.7 10 3/uL Basophils Absolute Auto 0.1 0.0-0.1 10 3/uL Immature Granulocytes Abs Auto 0.03 0.00-0.03 10 3/uL Performing Lab: see note ML - [facility] LB UA DIP NONAUTO WO MICRO (810 02) - IN OFFICE Reviewed date:06/12/2025 01:04:47 PM Interpretation: Performing Lab: Notes/Report: COLOR yellow CLARITY cloudy GLUCOSE neg BILIRUBIN neg KETONE neg SPECIFIC GRAVITY 1.010 BLOOD +++ PH 6 PROTEIN neg UROBILINOGEN neg NITRITE + LEUKOCYTE ESTERASE +++ Urine Culture - FR Reviewed date:06/15/2025 01:33:50 PM Interpretation: Performing Lab: Notes/Report: [facility] , Urine Culture - FR See Below For Report Isolated Testing performed at [facility] [place] Count Urine Culture - FR Organism: 1.1 Antibiotic Interpretation VA[facility] Status Urine Culture - FR O:ESCCOL Urine Culture - FR [address] [place] [address] Isolated Testing performed at [facility] Count Urine Culture - FR Organism: 1.1 Antibiotic Interpretation [facility] Status Urine Culture - FR O:ESCCOL Urine Culture - FR See Below For Report Isolated Testing performed at [facility] Count Urine Culture - FR Organism: 1.1 Antibiotic Interpretation [facility] Status Urine Culture - FR O:ESCCOL Urine Culture - [facility] See Below For Report Isolated Testing performed at [facility] Count Urine Culture - FR Organism: 1.1 Antibiotic Interpretation [facility] Status Urine Culture - [facility] O:ESCCOL Urine Culture - FR >100,000 Isolated Testing performed at [facility] [place] Count Urine Culture - FR Organism: 1.1 Antibiotic Interpretation [facility] Status Urine Culture - FR O:ESCCOL Urine Culture - [facility] See Below For Report Isolated Testing performed at [facility] [place] Count Urine Culture - FR Organism: 1.1 Antibiotic Interpretation [facility] Status Urine Culture - [facility] O:ESCCOL Urine Culture - FR Amikacin S F Isolated Testing performed at [facility] [place] Count Urine Culture - FR Organism: 1.1 Antibiotic Interpretation [facility] Status Urine Culture - [facility] O:ESCCOL Urine Culture - FR Amoxicillin/Clavula cari e S F Isolated Testing performed at [facility] [place] Count Urine Culture - FR Organism: 1.1 Antibiotic Interpretation [facility] Status Urine Culture - FR O:ESCCOL Urine Culture - FR Ampicillin S F Isolated Testing performed at [facility] [place] Count Urine Culture - FR Organism: 1.1 Antibiotic Interpretation [facility] Status Urine Culture - FR O:ESCCOL Urine Culture - FR Aztreonam S F Isolated Testing performed at [facility] [place] Count Urine Culture - FR Organism: 1.1 Antibiotic Interpretation [facility] Status Urine Culture - FR O:ESCCOL Urine Culture - FR Ceftazidime S F Isolated Testing performed at [facility] [place] Count Urine Culture - FR Organism: 1.1 Antibiotic Interpretation [facility] Status Urine Culture - FR O:ESCCOL Urine Culture - FR Ceftazidime/Avibact am S F Isolated Testing performed at [facility] [place] Count Urine Culture - FR Organism: 1.1 Antibiotic Interpretation [facility] Status Urine Culture - FR O:ESCCOL Urine Culture - FR Ceftolozane/Tazobac fink S F Isolated Testing performed at [facility] [place] Count Urine Culture - FR Organism: 1.1 Antibiotic Interpretation [facility] Status Urine Culture - [facility] [place] Urine Culture - [facility] Ciprofloxacin S F Isolated Testing performed at [facility] [place] Count Urine Culture - FR Organism: 1.1 Antibiotic Interpretation [facility] Status Urine Culture - [facility] [place]:ESCCOL Urine Culture - FR Ertapenem S F Isolated Testing performed at [facility] [place] Count Urine Culture - FR Organism: 1.1 Antibiotic Interpretation [facility] Status Urine Culture - FR O:ESCCOL Urine Culture - FR Gentamicin S F Isolated Testing performed at [facility] [place] Count Urine Culture - FR Organism: 1.1 Antibiotic Interpretation [facility] Status Urine Culture - FR O:ESCCOL Urine Culture - FR Levofloxacin S F Isolated Testing performed at [facility] [place] Count Urine Culture - FR Organism: 1.1 Antibiotic Interpretation [facility] Status Urine Culture - FR O:ESCCOL Urine Culture - FR Meropenem S F Isolated Testing performed at [facility] [place] Count Urine Culture - FR Organism: 1.1 Antibiotic Interpretation [facility] Status Urine Culture - FR O:ESCCOL Urine Culture - FR Meropenem/Vaborbact am S F Isolated Testing performed at [facility] [place] Count Urine Culture - FR Organism: 1.1 Antibiotic Interpretation [facility] Status Urine Culture - FR O:ESCCOL Urine Culture - FR Nitrofurantoin S F Isolated Testing performed at [facility] [place] Count Urine Culture - FR Organism: 1.1 Antibiotic Interpretation [facility] Status Urine Culture - FR O:ESCCOL Urine Culture - FR Tetracycline S F Isolated Testing performed at [facility] [place] Count Urine Culture - FR Organism: 1.1 Antibiotic Interpretation [facility] Status Urine Culture - FR O:ESCCOL Urine Culture - FR Tigecycline S F Isolated Testing performed at [facility] [place] Count Urine Culture - FR Organism: 1.1 Antibiotic Interpretation [facility] Status Urine Culture - FR O:ESCCOL Urine Culture - FR Tobramycin S F Isolated Testing performed at [facility] [place] Count Urine Culture - FR Organism: 1.1 Antibiotic Interpretation [facility] Status Urine Culture - FR O:ESCCOL Urine Culture - FR Ampicillin/Sulbacta m S F Isolated Testing performed at [facility] [place] Count Urine Culture - FR Organism: 1.1 Antibiotic Interpretation [facility] Status Urine Culture - FR O:ESCCOL Urine Culture - FR Cefazolin S F Isolated Testing performed at [facility] [place] Count Urine Culture - FR Organism: 1.1 Antibiotic Interpretation [facility] Status Urine Culture - FR O:ESCCOL Urine Culture - FR Cefepime S F Isolated Testing performed at [facility] [place] Count Urine Culture - FR Organism: 1.1 Antibiotic Interpretation [facility] Status Urine Culture - FR O:ESCCOL Urine Culture - FR Ceftriaxone S F Isolated Testing performed at [facility] [place] Count Urine Culture - FR Organism: 1.1 Antibiotic Interpretation [facility] Status Urine Culture - FR O:ESCCOL Urine Culture - FR Cefuroxime S F Isolated Testing performed at [facility] [place] Count Urine Culture - FR Organism: 1.1 Antibiotic Interpretation [facility] Status Urine Culture - FR O:ESCCOL Urine Culture - FR Piperacillin/Tazoba cta m S F Isolated Testing performed at [facility] [place] Count Urine Culture - FR Organism: 1.1 Antibiotic Interpretation [facility] Status Urine Culture - FR O:ESCCOL Urine Culture - FR Trimethoprim/Sulfa S F Isolated Testing performed at [facility] [place] Count Urine Culture - [facility] Organism: 1.1 Antibiotic Interpretation [facility] Status Urine Culture - [facility] O:ESCCOL Performing Lab: see note ML - [facility] LB SEE REPORT - Betting Clerk Id information not found for OBX-specific producer assistant legend Reason For Referral Reason and vertigo tx Diagnosis 1 Cervical radiculopat hy (M54.12) Referral Organization [facility] Referring Provider First Name Luis Angel Referring Provider Last Name Karen [facility]erred Provider [facility], Physical Therap y Referred Provider Specialty Physical The rapist Referral Priority Routine Diagnosis 1 Abdominal wall herni a (K43.9) Referral Organization [facility] Referring Provider First Name Luis Angel Referring Provider Last Name [facility] Referred Provider Clyde Jauregui Referred Provider Specialty General Surg genesis Referral Priority Routine Medications Medication SIG (Take, Route, Frequency, Duration) Notes Start Date End Date Status traMADol HCl 50 MG 1 tablet as needed Orally tid; Duration: 7 days N20.0 N20.0 07/08/2025 Active Ventolin HFA 108 (90 Base) MCG/ACT 2 puff as needed Inhalation every 4 hrs 02/10/2025 Active ZyrTEC 10 MG 1 tablet Orally Once a day Active Albuterol Sulfate HFA 108 (90 Base) MCG/ACT INHALE 2 PUFFS BY MOUTH EVERY 4 HOURS NEEDED; Duration: 17 Active Amoxicillin-Pot Clavulanate 875-125 MG 1 tablet [...] BY MOUTH EVERY DAY; Duration: 90 Active Tamsulosin HCl 0.4 MG 1 capsule Orally O nce a day; Duration: 30 days 07/08/2025 Active Adipex-P 37.5 MG 1 tablet before ansley kfast Orally Once a day 07/10/2025 Active tiZANidine HCl 4 MG 2 tabs Orally qhs; Duration: 30 days 01/16/2025 Active Social History Tobacco Use: Social History Observation Description Date Details (start date - stop date) Former Smoker 10/29/2001 - 10/29/2019 Tobacco Use/Smoking Question Answer Notes Patient is a former smoker When did you start smoking? 10/29/2001 When did you stop smoking? 10/29/2019 How long has it been since you last smoked? 1-5 years Alcohol Screen (Audit-C) Question Answer Notes Did you have a drink containing alcohol in the p ast year? No Points 0 Interpretation Negative AUDIT-C (Standard) Question Answer Notes Did you have a drink containing alcohol in the p ast year? No Points 0 Interpretation Negative Problems Problem Type SNOMED Code ICD Code Onset Dates Problem Status W/U Status Risk Notes Problem Thrombocytopenia (737453049) Thrombocytopenia , unspecified (D69.6) Active confirmed Problem Morbid obesity (disorder) (283002697) Morbid (severe) obesity due to excess calories (E66.01) Active confirmed Problem COPD - Chronic obstructive pulmonary disease (84157707) COPD (chronic obstructive pulmonary disease) (J44.9) Active confirmed Problem Cervical radiculopathy (23740139) Cervical radiculopathy (M54.12) Active confirmed Problem Vertigo (793662161) Vertigo (R42) Active confir med Problem Exacerbation of asthma (562114551) Asthma exacerbation (J45.901) Active confirmed Problem Acute sinusitis (42286281) Acute sinusitis (J01.90) Active confirmed Problem Kidney stone (53178436) Kidney stone (N20.0) Active confirmed Problem Well adult (691420077) Well adult (Z00.00) Active confirmed Problem Hives (131918572) Hives (L50.9) Active confirme d Problem Contact dermatitis (94532505) Contact dermatitis (L25.9) Active confirmed Problem Acute exacerbation of chronic obstructive airways disease (407426784) Acute exacerbation of chronic obstructive airways disease (J44.1) Active confirmed Problem Acute UTI (urinary tract infection) (925446734) Acute UTI (urinary tract infection) (N39.0) Active confirmed Vital Signs Temperature 97.5 degrees Fahrenheit 07/01/2025 Blood pressure diastolic 84 mm Hg 07/10/2025 Height 63 in 07/10/2025 Blood pressure systolic 144 mm Hg 07/10/2025 Weight 200.4 lbs 07/10/2025 BMI 35.5 kg/m2 07/10/2025 Encounters Encounter Location Date Provider Diagnosis [facility] [address] [place] [address] 07/04/2025 Luis Angel bharat [facility] [address] [place] [address] 07/08/2025 Luis Angel Hoy Blood in urine R31.9 and Kidney stone N20.0 [facility] [address] [place] [place] [address] 07/10/2025 Luis Angel Vigil [facility] [address] [place] [place] [address] 07/20/2025 Luis Angel Vigil [facility] [address] [place] [place] [address] 07/22/2025 Luis Angel Vigil [facility] [address] [place] [place] [address] 02/06/2025 Luis Angel Vigil [facility] [address] [place] [address] 02/18/2025 Luis Angel Vigil [facility] [address] [place] [place] [address] 05/21/2025 Luis Angel Vigil [facility] [address] [place] [place] [address] 06/14/2025 Luis Angel Vigil [facility] [address] [place] [place] [address] 07/01/2025 Luis Angel Hoy Blood in urine R31.9 [facility] [address] [place] [address] 07/03/2025 Luis Angel Vigil [facility] [address] [place] [place] [address] 09/16/2024 Luis Angel Vigil [facility] [address] [place] [place] [address] 09/16/2024 Luis Angel Vigil [facility] [address] [place] [address] 10/13/2024 Luis Angel Hickmany Asthma exacerbation J45.901 [facility] [address] [facility] [place] [address] 12/12/2024 Luis Angel Vigil Morbid (severe) obes ity due to excess calories E66.01 [facility] [address] [facility] [place] [address] 01/17/2025 Luis Angel Vigil [facility] [address] [facility] [place] [address] 01/20/2025 Luis Angel Vigil [facility] [address] [facility] [place] [address] 07/27/2024 Luis Angel Vigil [facility] [address] [facility] [place] [address] 07/31/2024 Luis Angel Vigil [facility] [address] [facility] [place] [address] 09/08/2024 Luis Angel Vigil [facility] [address] [facility] [place] [address] 09/12/2024 Luis Angel Vickbharat Asthma exacerbation J45.901 [facility] [address] [place] [address] 09/15/2024 Luis Angel Karen Acute bronchiolitis J21.9 and Nephrolithiasis N20.0 [facility] [address] [facility] [place] [address] 07/23/2025 Luis Angel Karen Kidney stone N20.0 [facility] [address] [facility] [place] [address] 05/12/2025 Luis Angel Hickmany Acute exacerbation o f chronic obstructive airways disease J44.1 and COPD (chronic obstructive pulmonary disease) J44.9 [facility] [address] [facility] [place] [address] 06/12/2025 Luis Angel Hickmany Acute UTI (urinary t ract infection) N39.0 and Acute exacerbation of chronic obstructive airways disease J44.1 [facility] [address] [facility] [place] [address] 07/10/2025 Luis Angel Hickmany Cervical radiculopat hy M54.12 and Kidney stone N20.[address] [address] 07/01/2025 Luis Angel Hoy Body aches R52 ; Acu te UTI N39.0 ; Sinus congestion R09.81 ; Acute non-recurrent sinusitis, unspecified location J01.90 ; Nasal congestion R09.81 and Abdominal wall hernia K43.[address] [address] 12/12/2024 Luis Angel Hoy [address] [address] 08/12/2024 Luis Angel Hoy Asthma exacerbation J45.[address] [address] 07/28/2024 Luis Angel Hoy Nephrolithiasis N20. [address] [address] 11/12/2024 Luis Angel Hoy Morbid (severe) obes ity due to excess calories E66.[address] [address] 10/16/2024 Luis Angel Hoy Asthma exacerbation J45.901 and Acute sinusitis J01.[address] [address] 02/10/2025 Luis Angel Hoy Cervical radiculopat hy M54.12 ; Acute UTI (urinary tract infection) N39.0 ; Vertigo R42 and Onychomycosis B35.[address] [address] 01/16/2025 Luis Angel Hoy Cervical radiculopat hy M54.[address] [address] 01/20/2025 Luis Angel Hoy Cervical radiculopat hy M54.12 Assessments Encounter Date Diagnosis (ICD Code) Assessment Notes Treatment Notes Treatment Clinical Notes Section Notes 08/12/2024 Asthma exacerbation (ICD-10 - J45.901) 07/28/2024 Nephrolithiasis (ICD-10 - N20.0) 11/12/2024 Morbid (severe) obesity due to excess calories (ICD-10 - E66.01) 10/16/2024 Asthma exacerbation (ICD-10 - J45.901) 10/16/2024 Acute sinusitis (ICD-10 - J01.90) 02/10/2025 Cervical radiculopathy (ICD-10 - M54.12) 02/10/2025 Acute UTI (urinary tract infection) (ICD-10 - N39.0) 01/16/2025 Cervical radiculopathy (ICD-10 - M54.12) 01/20/2025 Cervical radiculopathy (ICD-10 - M54.12) 05/12/2025 Acute exacerbation of chronic obstructive airways disease (ICD-10 - J44.1) Just on albuterl PRN - minimal smoking 05/12/2025 COPD (chronic obstructive pulmonary disease) (ICD-10 - J44.9) Doing well , just on albuterol PRN 06/12/2025 Acute UTI (urinary tract infection) (ICD-10 - N39.0) 06/12/2025 Acute exacerbation of chronic obstructive airways disease (ICD-10 - J44.1) 07/10/2025 Cervical radiculopathy (ICD-10 - M54.12) 07/10/2025 Kidney stone (ICD-10 - N20.0) needs ct scan 07/01/2025 Body aches (ICD-10 - R52) 07/01/2025 Acute UTI (ICD-10 - N39.0) 07/23/2025 Kidney stone (ICD-10 - N20.0) 09/12/2024 Asthma exacerbation (ICD-10 - J45.901) 09/15/2024 Acute bronchiolitis (ICD-10 - J21.9) 10/13/2024 Asthma exacerbation (ICD-10 - J45.901) 12/12/2024 Morbid (severe) obesity due to excess calories (ICD-10 - E66.01) 07/01/2025 Blood in urine (ICD-10 - R31.9) 07/08/2025 Blood in urine (ICD-10 - R31.9) 07/08/2025 Kidney stone (ICD-10 - N20.0) 09/15/2024 Nephrolithiasis (ICD-10 - N20.0) 07/01/2025 Sinus congestion (ICD-10 - R09.81) 02/10/2025 Vertigo (ICD-10 - R42) 02/10/2025 Onychomycosis (ICD-10 - B35.1) 07/01/2025 Acute non-recurrent sinusitis, unspecified location (ICD-10 - J01.90) Rest and drink more liquids, especially water. You may use a humidifier or vaporizer to help keep the drainage moist. Gjaz-asu-zmdtszs Nasal Saline may help the stuffy and runny nose. Use Ibuprofen and or Tylenol as needed for fever, chills, body aches or pain. Children 5 years old should not be given tmnz-yrx-ljatnow cough and cold medications such as guaifenesin and dextromethorphan. If you're over age 5, you may try oygl-oyd-sfbsxyy cold medications such as guaifenesin and dextromethorphan, or multi-symptom cold reliever such as Dayquil to help reduce the symptoms. Antibiotics have been prescribed. You should take these until completed and follow the directions. Antibiotics can sometimes cause upset stomach, and in rare cases, serious allergic reactions or serious gastrointestinal problems. If you start having severe abdominal pain, severe vomiting, or bloody diarrhea, you should be reevaluated by your physician or urgent care immediately. Follow up with your Primary Care Provider or return to clinic if symptoms do not improve within 3-5 days 07/01/2025 Nasal congestion (ICD-10 - R09.81) 07/01/2025 Abdominal wall hernia (ICD-10 - K43.9) 01/20/2025 Other Recommended to rest and use a heating pad on the area. Take NSAIDs for pain as needed 02/10/2025 Other Recommended to rest and use a heating pad on the area. Take NSAIDs for pain as needed Plan Of Treatment Pending Test Test Name Order Date CMP (COMPLETE METABOLIC PANEL) 3 CMP (COMPLETE METABOLIC PANEL) 3 CMP (COMPLETE METABOLIC PANEL) 4 HEMOGLOBIN A1C (GLYCO) 06/07/2023 IRON, TOTAL 06/07/2023 LIPID PANEL (CHOL/TRIG/HDL/LDL) 06/07/20 23 CBC WITH DIFF 06/07/2023 CBC WITH DIFF 08/27/2023 US Gallbladder 08/27/2023 US Liver and Pancreas 08/27/2023 Urinalysis Microscopic 06/12/2025 Urinalysis Microscopic 07/01/2025 Insulin Level 06/07/2023 Stone Analysis, Kidney 07/23/2025 BMP - Basic Metabolic Panel 08/19/2023 CBC AUTO DIFF 08/19/2023 CBC AUTO DIFF 06/09/2024 CBC AUTO DIFF 05/07/2024 CULTURE SPUTUM 08/27/2023 CULTURE URINE 07/01/2025 CULTURE URINE 06/12/2025 GLYCOHEMOGLOBIN A1C 05/07/2024 LIPID PROFILE 05/07/2024 PROF 14(COMP METB) 05/07/2024 SPUTUM GRAM STAIN 08/27/2023 THYROID PROFILE WITH TSH 05/07/2024 CT ABD and PELVIS WO CON 07/08/2025 MRI CSPINE WO CON 01/16/2025 US KIDNEYS BLADDER 07/01/2025 THYROID PANEL (T4/TSH/FREE T3) 3 MM screening mammo BI 05/07/2024 XR cervical spine 2-3V 01/16/2025 Next Appt Details Provider Name:Luis Angel Vigil, 08:30:00 AM, [address] [place], [address], Insurance Providers Payer Name Payer Address Payer Phone Subscriber Number Group Number Insured Name Patient Relationship to Insured Coverage Start Date Coverage End Date [employer] ADV PLAN [address] [place] [address] [id number] [facility] 0 Kiya Alejandra Self - patient is the insured 0 MEDICAID [facility] [address] INS [address] OFFICE OF [place], [place] [id number] Kiya Alejandra Self - patient is the insured 3 Medications Administered Medication Instructions Date of Administration Dosage Notes Kenalog-40 06/07/2023 120 mg 120 Kenalog-40 05/02/2024 80 mg 80 Ketorolac Tromethamine 02/10/2025 60 mg Ketorolac Tromethamine 07/10/2025 60 mg Ketorolac Tromethamine 07/23/2025 60 mg Orphenadrine Citrate 02/10/2025 60 mg Orphenadrine Citrate 07/10/2025 60 mg Orphenadrine Citrate 07/23/2025 60 mg Triamcinolone 40 mg/ml 02/10/2025 120 mg Triamcinolone 40 mg/ml 07/10/2025 120 mg Triamcinolone 40 mg/ml 07/23/2025 120 mg Medical (General) History Surgical History Surgery Date(Month/Year) Tubal Ligation Gallbladder Right Knee Scope Kidney Stones Appendectomy- Dr Jauregui 04/11/2025
--- OUTSIDE RECORDS SUMMARY | 2025-07-23 10:33 | XMS_ITS | Clinical Summary ---
Author Organization [facility] Address [address] [place] [address] Phone Care Team Providers Care Automotive Manufacturer Name Role Phone Unavailable Primary Care Provider [...]
--- OUTSIDE RECORDS SUMMARY | 2025-07-23 10:35 | XMS_ITS | CCD ---
Author Organization [facility] Care Team Providers Care Neon Tube Pumper Name Role Phone VALLE, M L Unavailable [...] Unavailable FAZAL, DR REES Primary Care Unavailable [place], DR LOREE Zimmerman Consulting Unavailable FAZAL, DR [...] Provider UnavailCabrera Caal MD Primary Care Provider [phone] CLYDE CHOI Attending Unavailable CLYDE CHOI Attending Unavailable Cabrera Jones MD Primary Care Provider [phone] Clyde Choi DO Admit Provider Clyde Choi DO Attending Provider [phone] Cabrera Jones MD Attending Provider Cabrera Jones Attending Unavailable Cabrera Jones Admitting Unavailable Cabrera Jones Admitting Unavailable Cabrera Jones Attending Unavailable Clyde Choi Admitting Unavailable Clyde Choi Attending Unavailable Cabrera Jones Primary Care Unavailable Medications Current Medications Medication Drug Class(es) Dates Sig (Normalized) Sig (Original) [id number] 200 actuat albuterol 0.09 mg/actuat metered dose [...] take 1 tablet by mouth once daily rjfcjzf-fgjsiwbne-zcswgmu D3 (CALCIUM 500+D) 500 mg(1,250mg) -200 unit [...] 08-26-2021 Episodic Other aftercare (1 source) Other adjunct faculty for medical terminology (current) drug therapy; Translations: [OTH 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 Normal [facility] Comment on above: Performed By: #### C UU #### [address] [place] [address] [place] Urine Cultureon 06-12-2025 Bacteria identified Cx Nom (U) ORGANISM: Escherichia coli (O:ESCCOL) Capron Count >100,000 Aerobic VAHE Charge (NMIC56) ---- [...] RESISTANT TO ALL B-LACTAM DRUGS. PERFORMED BY: [place] [address] PATHOLOGIST DIVISION HUMAN RESOURCES MANAGER ALISA GOMEZ M.D. Normal [facility] Comment on above: Performed By: #### C UU #### [address] Urine cultureOrdered By: Steffen Jones on 06-12-2025 Bacteria identified Cx Nom (U) Escherichia coli Abnormal [facility] GLUCOSE POCT GLUCOMETERSon 0 04-14-2025 Glucose [Mass/Vol] 109 mg/dL [facility] Comment on above: Random Glucose Refer ence Range is dependent on time and content of last meal. Glucose of more than 200 mg/dL in a nonstressed, ambulatory subject supports the diagnosis of Diabetes Mellitus. [facility] Basophils [#/volume] in Bloo d by Automated countOrdered By: Clyde Choi on 04-12-2025 Basophils (Bld) [#/Vol] 0.0 10*3/uL Normal 0.0-0.2 [facility] Comment on above: Result Comment: PERF ORMED BY: [address] [place] [address] PATHOLOGIST DIVISION HUMAN RESOURCES MANAGER ALISA GOMEZ M.D. Performed By: #### C BC #### [facility] [address] Basophils/100 leukocytes in Blood by Automated countOrdered By: Clyde Choi on 04-12-2025 Basophils/100 WBC (Bld) 0.3 % Normal . [facility] Comment on above: Performed By: #### C BC #### [facility] [address] CBC W Auto Differential pane l (Bld)on 04-12-2025 Basophils (Bld) [#/Vol] 0 10*3/uL 0.0 - 0.2 10*3/uL [facility] Basophils/100 WBC Manual cnt (Syn fld) 0.3 % . [facility] Eosinophils (Bld) [#/Vol] 0.1 10*3/uL 0.0 - 0.45 10*3/uL [facility] Eosinophils/100 WBC Manual cnt (Syn fld) 0.6 % . [facility] Erythrocyte distribution width (RBC) [Ratio] 12.8 % 11.9 - 15.3 % [facility] Hematocrit (Bld) [Volume fraction] 37.1 % 34.0 - 46.4 % [facility] Hemoglobin (Bld) [Mass/Vol] 12.6 g/dL 11.8 - 15.4 g/dL [facility] Interpretation and review of laboratory results Abnormal [facility] Lymphocytes (Bld) [#/Vol] 1.7 10*3/uL 1.00 - 4.8 10*3/uL [facility] Lymphocytes/100 WBC Manual cnt (Syn fld) 15.3 % . [facility] MCH (RBC) [Entitic mass] 30.3 pg 24.7 - 34.3 pg [facility] MCHC (RBC) [Mass/Vol] 34 g/dL 32.0 - 35.0 g/dL [facility] MCV (RBC) [Entitic vol] 89 fL 80 - 100 fL [facility] Monocytes (Bld) [#/Vol] 0.6 10*3/uL 0.0 - 0.8 10*3/uL [facility] Monocytes+Macrophage s/100 WBC Manual cnt (Syn fld) 5.1 % . [facility] Neutrophils (Bld) [#/Vol] 8.6 10*3/uL High 1.8 - 7.7 10*3/uL [facility] Neutrophils/100 WBC Manual cnt (Syn fld) 78.7 % . [facility] NRBC 0.1 /100{WBC} 0 - 0.5 /100{WBC} [facility] Platelet mean volume (Bld) [Entitic vol] 9.9 fL 6.3 - 10.7 fL [facility] Platelets (Bld) [#/Vol] 148 10*3/uL Low 150 - 450 10*3/uL [facility] RBC LM.HPF (Urine sed) [#/Area] 4.17 10*6/uL 3.60 - 5.00 10*6/uL [facility] WBC (Bld) [#/Vol] 10.9 10*3/uL 3.8 - 11.6 10*3/uL [facility] WBC LM.HPF (Urine sed) [#/Area] 10.9 10*3/uL 3.8 - 11.6 10*3/uL [facility] Complete Blood Count Auto Di ffon 04-12-2025 Mean Corpuscular HGB Conc 34.0 g/dL Normal 32.0-35.0 [facility] Comment on above: Performed By: #### C BC #### [facility] [address] NRBC% 0.1 /100{WBC} Normal 0-0.[address] [facility] Comment on above: Performed By: #### C BC #### [place] [address] [place] Eosinophils [#/volume] in Bl ood by Automated countOrdered By: Clyde Choi on 04-12-2025 Eosinophils (Bld) [#/Vol] 0.1 10*3/uL Normal 0.0-0.45 [facility] Comment on above: Performed By: #### C BC #### [place] [address] [place] Eosinophils/100 leukocytes i n Blood by Automated countOrdered By: Clyde Choi on 04-12-2025 Eosinophils/100 WBC (Bld) 0.6 % Normal . [facility] Comment on above: Performed By: #### C BC #### [address] Erythrocyte distribution wid th [Ratio] by Automated countOrdered By: Clyde Choi on 04-12-2025 Erythrocyte distribution width (RBC) [Ratio] 12.8 % Normal 11.9-15.3 [facility] Comment on above: Performed By: #### C BC #### [address] Erythrocytes [#/volume] in B lood by Automated countOrdered By: Clyde Choi on 04-12-2025 RBC (Bld) [#/Vol] 4.17 10*6/uL Normal 3.60-5.00 [facility] Comment on above: Performed By: #### C BC #### [address] Hematocrit [Volume Fraction] of Blood by Automated countOrdered By: Clyde Choi on 04-12-2025 Hematocrit (Bld) [Volume fraction] 37.1 % Normal 34.0-46.4 [facility] Comment on above: Performed By: #### C BC #### [address] Hemoglobin [Mass/volume] in BloodOrdered By: Clyde Choi on 04-12-2025 Hemoglobin (Bld) [Mass/Vol] 12.6 g/dL Normal 11.8-15.4 [facility] Comment on above: Performed By: #### C BC #### [address] Leukocytes [#/volume] correc mark for nucleated erythrocytes in Blood by Automated counOrdered By: Clyde Choi on 04-12-2025 WBC corrected for nucl RBC Auto (Bld) [#/Vol] 10.9 10*3/uL 3.8-11.6 [facility] Leukocytes [#/volume] in Blo od by Automated countOrdered By: Clyde Choi on 04-12-2025 WBC (Bld) [#/Vol] 10.9 10*3/uL Normal 3.8-11.6 [facility] Comment on above: Performed By: #### C BC #### [address] Lymphocytes [#/volume] in Bl ood by Automated countOrdered By: Clyde Choi on 04-12-2025 Lymphocytes (Bld) [#/Vol] 1.7 10*3/uL Normal 1.00-4.8 [facility] Comment on above: Performed By: #### C BC #### [address] Lymphocytes/100 leukocytes i n Blood by Automated countOrdered By: Clyde Choi on 04-12-2025 Lymphocytes/100 WBC (Bld) 15.3 % Normal . [facility] Comment on above: Performed By: #### C BC #### [place] [address] [place] MCH [Entitic mass] by Automa mark countOrdered By: Clyde Choi on 04-12-2025 MCH (RBC) [Entitic mass] 30.3 pg Normal 24.7-34.3 [facility] Comment on above: Performed By: #### C BC #### [address] MCHC Auto (RBC) [Mass/Vol]Or dered By: Clyde Choi on 04-12-2025 MCHC (RBC) [Mass/Vol] 34.0 g/dL 32.0-35.0 [facility] MCV [Entitic volume] by Auto mated countOrdered By: Clyde Choi on 04-12-2025 MCV (RBC) [Entitic vol] 89.0 fL Normal 80-100 [facility] Comment on above: Performed By: #### C BC #### [place] [address] [place] Monocytes [#/volume] in Bloo d by Automated countOrdered By: Clyde Choi on 04-12-2025 Monocytes (Bld) [#/Vol] 0.6 10*3/uL Normal 0.0-0.8 [facility] Comment on above: Performed By: #### C BC #### [place] [address] [place] Monocytes/100 leukocytes in Blood by Automated countOrdered By: Clyde Choi on 04-12-2025 Monocytes/100 WBC (Bld) 5.1 % Normal . [facility] Comment on above: Performed By: #### C BC #### [place] [address] [place] Neutrophils [#/volume] in Bl ood by Automated countOrdered By: Clyde Choi on 04-12-2025 Neutrophils (Bld) [#/Vol] 8.6 10*3/uL High 1.8-7.7 [facility] Comment on above: Performed By: #### C BC #### [place] [address] [place] Neutrophils/100 leukocytes i n Blood by Automated countOrdered By: Clyde Choi on 04-12-2025 Neutrophils/100 WBC (Bld) 78.7 % Normal . [facility] Comment on above: Performed By: #### C BC #### [place] [address] [place] Nucleated erythrocytes [Pres ence] in Blood by Automated countOrdered By: Clyde Choi on 04-12-2025 Nucleated RBC Auto Ql (Bld) 0.1 /100{WBC} 0-0.5 [facility] Platelet mean volume [Entiti c volume] in Blood by Automated countOrdered By: Clyde Choi on 04-12-2025 Platelet mean volume (Bld) [Entitic vol] 9.9 fL Normal 6.3-10.7 [facility] Comment on above: Performed By: #### C BC #### [facility] [address] Platelets [#/volume] in Bloo d by Automated countOrdered By: Clyde Choi on 04-12-2025 Platelets (Bld) [#/Vol] 148 10*3/uL Low 150-450 [facility] Comment on above: Performed By: #### C BC #### [facility] [address] Capillary blood glucose juan r urement by glucometer (mass/volume)Ordered By: Clyde Choi on 04-11-2025 Glucose [Mass/Vol] 109 mg/dL Normal [facility] Comment on above: Random Glucose Refer ence Range is dependent on time and content of last meal. Glucose of more than 200 mg/dL in a nonstressed, ambulatory subject supports the diagnosis of Diabetes Mellitus. Result Comment: [place] Glucose Reference Range is dependent on time and content of last meal. Glucose of more than 200 mg/dL in a nonstressed, ambulatory subject supports the diagnosis of Diabetes Mellitus. PERFORMED BY: [facility] [address] [facility] [place] [address] PATHOLOGIST DIVISION HUMAN RESOURCES MANAGER ALISA GOMEZ M.D. Performed By: #### G TERE #### Point of Care testing , Jesus 04-11-2025 L - -------- Specimen: [id number] Received: 04/13/25 Status: NIDA Meade Num: [id number] Spec Type: Surgical Subm Dr: Clyde Choi DO Tissues: A Appendix - Other than Incidental (APPENDIX) Procedures: HE/2, Gross/Micro L3 -------- Age/ Patient Sex Location Account Attending Physician -------- Kiya Bhat 49/F 4P [id number] Clyde Choi DO -------- SPEC NUM: [id number] RECD: 04/13/25 STATUS: NIDA RE NUM: [id number] CIERA: 04/11/25-[address]: Clyde Choi DO ENTERED: 04/13/[address] [facility] [address]: VICKIE TYPE: Surgical DEPT: S ENTERED BY: [id number] RECV BY: [id number] ORDERED: HE/2, Gross/Micro L3 ORDERED: HE/2, Gross/Micro [...] distal tip submitted in A2. (2, ss, [id number] A) CPT Codes 51496 -------- -------- Specimen: [id number] Received: 04/13/25 Status: NIDA Meade Num: [id number] Spec Type: Surgical Subm Dr: Clyde Choi, Tissues: A Appendix - Other than Incidental (APPENDIX) Procedures: HE/2, Gross/Micro L3 -------- Patient: Kiya Bhat [id number] (Continued) -------- Signed (signature on file) Jagdish Reyes MD 04/14/25 1512 Normal [facility] CNOVtalia 12-24-2024 CNOV Office Visit (THORORESTES ) OCTAVIO BHATYA ([id number]) 1975 F Date Time Provider Department 12/24/24 2:15 PM EDISON ARDON During your visit today, we recorded the following information about you: Temperature Pulse Respiration Blood pressure 98.2 degrees 89/minute 14/minute 117/79 Weight Height 85.3 kg 1.6 m Heena Manjarrez MD 01/03/2025 9:17 AM Signed [facility] THORAC[facility] SURGERY OUTPATIENT CONSULT NOTE Kiya Bhat [id number] Requesting Provider: Self Thoracic Physician: Edison Ardon [...] personally performed by: Duglas Manjarrez Patient-Entered Questionnaire [facility] Esophageal Questionnaire 12/23/2024 Domain Symptom Raw Score [...] the following (more content not included)... Normal [facility] XR ESOPHAGRAMon 12-24-2024 XR ESOPHAGRAM * [...] with organoaxial orientation. No demonstrated gastroesophageal reflux. Weight Count Operator: [facility] Transcribe Date/Time: Dec 24 2024 2:30P Dictated by : ALANNA FOSTER MD This examination was interpreted and the report reviewed and electronically signed by: LOREE VALDEZ MD on Dec 24 2024 3:55PM EST [id number] Normal [facility] XR Esophagus Views W contras t Thad 12-24-2024 IMPRESSION: Large hiatal hernia (type III) with organoaxial orientation. No demonstrated gastroesophageal reflux. Weight Count Operator: [facility] Transcribe Date/Time: Dec 24 2024 2:30P [...] entire procedure. DIVISION OF RADIOLOGY Provider, [facility] - 12/24/2024 * * *Final Report* [...] with organoaxial orientation. No demonstrated gastroesophageal reflux. Weight Count Operator: [facility] Transcribe Date/Time: Dec 24 2024 2:30P Dictated by : ALANNA FOSTER MD This examination was interpreted and the report reviewed and electronically signed by: LOREE VALDEZ MD on Dec 24 2024 3:55PM EST [facility] Radiology Study observation (narrative) [facility] XR Esophagus Views W jhonatan berkowitz Delmar By: Ccf Provider on 12-24-2024 [facility] Thiago 11-24-2024 CNPN Telephone (KATE) KIYA BHAT ([id number]) 1975 F Date Time Provider Department 11/24/24 EDISON ARDON During your visit today, we recorded the following information about you: Weight 88.9 kg Renae Holly 11/24/2024 1:28 PM Signed LOCAL PATIENT Received [employer] Staff Message from Gill Brar is former [...] office for scheduling. Please call pt at [phone]. Patient was informed consultation could be at [facility] or [facility] [place]: No Patient Registration: Registration complete/updated: yes Insurance card(s) scanned in [facility] with in the past year: No Pt's [employer] is active. Ok to communicate to pt via [employer] yes Medical Records: Records in [facility] (internal CC records): Yes (old) Imaging in [facility] (internal CC records): Yes (old) Care [...] Reason for Visit: Consult [173] Appointment Confirmation [6855] Primary Visit Diagnosis:Diaphragmat ic hernia without obstruction and without gangrene [K44.9] Order(s):XR ESOPHAGRAM [0096900] Order #: [id number] FUTURE Prescriptions as of 11/24/2024 - multivitamin [...] 1 tablet by mouth once daily. - rgayeza-ioiaxqppf-tsg dunaway D3 (CALCIUM 500+D) 500 mg(1,250mg) -200 unit per tablet Take 1 tablet by mouth once daily. - Ibuprofen 200 mg cap (more content not included)... Normal [facility] CNPN Telephone (THORMN) KIYA BHAT ([id number]) 1975 F Date Time Provider Department 11/24/24 EDISON ARDON During your visit today, we recorded the following information about you: Renae Holly 11/24/2024 2:15 PM Signed Attempt #1 Requested Medical Records from the office of Dr. Cabrera Jones Spoke to: Jacki Phone #: [phone] Fax #: [phone] Jacki agreed to fax the last office note Renae Elliott November 24, 2024 2:12 PM Renae Holly 11/24/2024 4:06 PM Signed Received outside office note (scanned) to [facility]. Renae Chaudhry Dining Services Director Allergies As of Date: 11/24/2024 (No Known [...] 1 tablet by mouth once daily. - rabchib-fzglhpegc-rxh dunaway D3 (CALCIUM 500+D) 500 mg(1,250mg) -200 unit per tablet Take 1 tablet by mouth once daily. - Ibuprofen 200 mg cap Take 1-2 capsules by mouth as needed (for pain). Problem List As Of Date: 11/24/2024 (None) Encounter Status:Closed by RENA[facility] ([id number]) 1975 F Date Time Provider Department 11/24/24 EDISON ARDON During your visit today, we recorded the following information about you: Gill Brar 11/24/2024 11:33 AM Signed .RECEIVED CALL FROM: Patient PATIENT INFORMATION: Name: Kiya Bhat : 1975 (home) [phone] (cell) Email: [email or web address] Referring Provider: No referring provider defined for [...] 1 tablet by mouth once daily. - tvpoefi-fzlzbtprw-qbk dunaway D3 (CALCIUM 500+D) 500 mg(1,250mg) -200 unit per tablet Take 1 tablet by mouth once daily. - Ibuprofen 200 mg cap Take 1-2 capsules by mouth as needed (for pain). Problem List As Of Date: 11/24/2024 (None) Encounter Status:Closed by GILL BRAR on 11/24/24 Normal [facility] Covid-19 PCR (CVDTBH)on 04-28 SARS-CoV-2 (COVID-19) RNA SUKHWINDER+probe Ql (Unsp spec) Not detected Normal NOT DETECTED [facility] Comment on above: Result Comment: This test is not yet approved or cleared by the [place] FDA. When there are no FDA-approved or cleared tests available, and other criteria are met, FDA can make tests available under an emergency access mechanism called an Emergency Use Authorization (EUA). The EUA for this test is supported by the [place] of Health and Human Service's (HHS's) declaration [...] #### C MP, BNP, TSH, HSTROPN #### [facility] Laboratory [address] [address] [address] Emily Hercules Facesheeton 03-02-2022 Facesheet [id number] .[id number]:127 Normal [facility] Physician Referralon 022 Physician Referral [id number]. 00CD:127 Normal [facility] Covid-19 PCR ([facility])on 08-30 SARS-CoV-2 (COVID-19) RNA SUKHWINDER+probe Ql (Unsp spec) Not detected Normal NOT DETECTED [facility] Comment on above: Result Comment: This test is not yet approved or cleared by the [place] FDA. When there are no FDA-approved or cleared tests available, and other criteria are met, FDA can make tests available under an emergency access mechanism called an Emergency Use Authorization (EUA). The EUA for this test is supported by the [place] [employer] of Health and Human Service's (HHS's) declaration [...] SARS-CoV-2. Performed By: #### C VDTBH #### [facility] [address] [address] [address] Emily Hercules MG MAMM SCREEN 3D SHELLY CADon 09-15-2021 MG MAMM SCREEN 3D SHELLY CAD Patient: KIYA BHAT Exam Date: 09/15/2021 : 1975 Gender:F Ordering : DR CABRERA JONES . Admission #: [id number] Family : Order #: [id number] CLICK HERE TO VIEW EXAM RADIOLOGY REPORT PROCEDURE: MAMMOGRAM SCREENING 3D BILATERAL CAD COMPARISON: None. INDICATIONS: Screening mammography Calculator Name NCI Breast Cancer Risk Assessment Tool 5 Year Breast Cancer Risk 0.70% Lifetime Breast Cancer Risk 6.70% Personal Breast Cancer No Personal Ovarian Cancer No Treatments None Family Cancers Grandmother-maternal with leukemia cancer at age 38. LOCATION: [facility] BREAST COMPOSITION: Scattered areas fibroglandular density. FINDINGS: [...] MD on 09/15/2021 at 11:59 Normal [facility] FSHon 09-03-2021 FSH 8.8 mIU/mL Normal [facility] Comment on above: Result Comment: Adul t Female: Follicular phase 3.5 - 12.5 Ovulation phase 4.7 - 21.5 Luteal phase 1.7 - 7.7 Postmenopausal 25.8 - 134.8 Performed By: #### L [facility] #### [facility] Laboratory [address] [address] [address] mEily Hercules INSULINon 09-03-2021 Insulin 19.4 uIU/mL Normal 2.6-24.9 [facility] Comment on above: Performed By: #### C MP, BNP, TSH, HSTROPN #### [facility] Laboratory [address] [address] [address] Emily Hercules CBC AUTO DIFFon 09-02-2021 BASO # 0.1 103/ul Normal 0.0-0.1 [facility] Comment on above: Performed By: #### C BC #### [facility] Laboratory [address] [place] [address] Dr. Emily Hercules Basophils/100 WBC (Bld) 0.7 % Normal 0.2-2.0 [facility] Comment on above: Performed By: #### C BC #### [facility] Laboratory [address] [place] [address] Dr. Emily Hercules EO # 0.3 103/ul Normal 0.0-0.7 [facility] Comment on above: Performed By: #### C BC #### [facility] Laboratory [address] [place] [address] Dr. Emily Hercules Eosinophils/100 WBC (Bld) 3.8 % Normal 0.9-7.0 [facility] Comment on above: Performed By: #### C BC #### [facility] Laboratory [address] [place] [address] Dr. Emily Hercules Erythrocyte distribution width (RBC) [Ratio] 13.6 % Normal 11.0-15.0 [facility] Comment on above: Performed By: #### C BC #### [facility] Laboratory [address] [place] [address] Dr. Emily Hercules Hematocrit (Bld) [Volume fraction] 42.6 % Normal 36.0-48.0 [facility] Comment on above: Performed By: #### C BC #### [facility] Laboratory [address] [place] [address] Dr. Emily Hercules Hemoglobin (Bld) [Mass/Vol] 14.5 g/dL Normal 12.0-16.0 [facility] Comment on above: Performed By: #### C BC #### [facility] Laboratory [address] [place] [address] Dr. Emily Hercules IG # 0.08 10e3/ul Critically high 0.00-0.03 [facility] Comment on above: Performed By: #### C BC #### [facility] Laboratory [address] [place] [address] Dr. Emily Hercules IG % 1.0 % Critically high 0.0-0.5 [facility] Comment on above: Performed By: #### C BC #### [facility] Laboratory [address] [place] [address] Dr. Emily Hercules LYMPH # 2.2 103/ul Normal 1.2-3.8 [facility] Comment on above: Performed By: #### C BC #### [facility] Laboratory [address] [place] [address] Dr. Emily Hercules Lymphocytes/100 WBC (Bld) 27.4 % Normal 20.5-60.0 [facility] Comment on above: Performed By: #### C BC #### [facility] Laboratory [address] [place] [address] Dr. Emily Hercules MANUAL DIFF REQ NO Normal [facility] Comment on above: Performed By: #### C BC #### [facility] Laboratory [address] [place] [address] Dr. Emily Hercules MCH (RBC) [Entitic mass] 30.2 pg Normal 26.7-34.0 [facility] Comment on above: Performed By: #### C BC #### [facility] [address] [place] [address] Dr. Emily Hercules MCHC (RBC) [Mass/Vol] 34.0 g/dL Normal 29.9-35.2 [facility] Comment on above: Performed By: #### C BC #### [facility] [address] [place] [address] Dr. Emily Hercules MCV (RBC) [Entitic vol] 88.8 fL Normal 81.0-99.0 [facility] Comment on above: Performed By: #### C BC #### [facility] [address] [place] [address] Dr. Emily Hercules MONO # 0.5 103/ul Normal 0.3-0.8 [facility] Comment on above: Performed By: #### C BC #### [facility] [address] [place] [address] Dr. Emily Hercules Monocytes/100 WBC (Bld) 6.2 % Normal 1.7-12.0 [facility] Comment on above: Performed By: #### C BC #### [facility] [address] [place] [address] Dr. Emily Hercules NEUT # 4.9 103/ul Normal 1.4-6.5 [facility] Comment on above: Performed By: #### C BC #### [facility] [address] [place] [address] Dr. Emily Hercules Neutrophils/100 WBC (Bld) 60.9 % Normal 43.0-75.0 [facility] Comment on above: Performed By: #### C BC #### [facility] [address] [place] [address] Dr. Emily Hercules Platelet mean volume (Bld) [Entitic vol] 11.6 fL Normal 9.5-13.5 [facility] Comment on above: Performed By: #### C BC #### [facility] [address] [place] [address] Dr. Emily Hercules PLT 180 103/ul Normal 150-450 [facility] Comment on above: Performed By: #### C BC #### [facility] [address] [place] [address] Dr. Emily Hercules RBC 4.80 106/ul Normal 4.20-5.40 [facility] Comment on above: Performed By: #### C BC #### [facility] [address] [place] [address] Dr. Emily Hercules WBC 8.1 103/ul Normal 4.0-11.0 [facility] Comment on above: Performed By: #### C BC #### [facility] [address] [place] [address] Dr. Emily Hercules FREE THYROXINE INDEX T7on FTI 3.47 Normal [facility] Comment on above: Performed By: #### T 7, CMP, LIPID, TSH #### [facility] [address] [place] [address] Dr. Emily Hercules T3U 35.0 % Normal 23.5-40.5 [facility] Comment on above: Performed By: #### T 7, CMP, LIPID, TSH #### [facility] [address] [address] [address] Emily Hercules T4 [Mass/Vol] 9.90 ug/dL Normal 5.53-11.00 [facility] Comment on above: Performed By: #### T 7, CMP, LIPID, TSH #### [facility] [address] [address] [address] Emily Hercules GLYCOHEMOGLOBIN A1Con 2020 ADA RECOMMENDATION ADA THERAPEUTIC TARGET 6.0 - 7.0 ACTION SUGGESTED > 7.0 Normal [facility] Comment on above: Performed By: #### C MP, BNP, TSH, HSTROPN #### [facility] [address] [address] [address] Emily Hercules Glucose [Mass/Vol] 114 mg/dL Normal [facility] Comment on above: Performed By: #### C MP, BNP, TSH, HSTROPN #### [facility] [address] [address] [address] Emily Hercules HbA1c (Bld) [Mass fraction] 5.6 % Normal <=6.0 [facility] Comment on above: Performed By: #### C MP, BNP, TSH, HSTROPN #### [facility] [address] [address] [address] Emily Hercules IRONon 09-02-2021 Iron [Mass/Vol] 111.0 ug/dL Normal 37.0-170.0 [facility] Comment on above: Performed By: #### C MP, BNP, TSH, HSTROPN #### [facility] [address] [place] [address] Dr. Emily Hercules LIPID PROFILEon 09-02-2021 CHOL-HDL RATIO NORM SEE BELOW Normal [facility] Comment on above: Result Comment: 3.3 - 4.4 LOW RISK 4.4 - 7.1 AVERAGE RISK 7.1 - 11.0 MODERATE RISK >11.0 HIGH RISK Performed By: #### C MP, BNP, TSH, HSTROPN #### [facility] [address] [place] [address] Dr. Emily Hercules Cholesterol [Mass/Vol] 183 mg/dL Normal <=200 [facility] Comment on above: Performed By: #### C MP, BNP, TSH, HSTROPN #### [facility] [address] [address] [address] Emily Hercules Cholesterol in HDL [Mass/Vol] 43 mg/dL Normal [facility] Comment on above: Performed By: #### C MP, BNP, TSH, HSTROPN #### [facility] [address] [address] [address] Emily Hercules Cholesterol in LDL [Mass/Vol] 109.0 mg/dL Normal [facility] Comment on above: Performed By: #### C MP, BNP, TSH, HSTROPN #### [facility] [address] [place] [address] Dr. Emily Hercules Cholesterol.total/Ch olesterol in HDL [Mass ratio] 4.3 {ratio} Normal [facility] Comment on above: Performed By: #### C MP, BNP, TSH, HSTROPN #### [facility] [address] [address] [address] Emily Hercules HDL NORMAL > or = 60 mg/dl - LO W CARDIOVASCULAR RISK <40 mg/dl - HIGH CARDIOVASCULAR RISK Normal [facility] Comment on above: Performed By: #### C MP, BNP, TSH, HSTROPN #### [facility] [address] [address] [address] Emily Hercules LDL CALC NORMAL SEE BELOW Normal [facility] Comment on above: Result Comment: <100 mg/dl OPTIMAL 100 - 129 mg/dl NEAR OR ABOVE OPTIMAL 130 - 159 mg/dl BORDERLINE HIGH 160 - 189 mg/dl HIGH >190 mg/dl VERY HIGH Performed By: #### C MP, BNP, TSH, HSTROPN #### [facility] [address] [address] [address] Emily Hercules Triglyceride [Mass/Vol] 155 mg/dL Critically high <=150 [facility] Comment on above: Performed By: #### C MP, BNP, TSH, HSTROPN #### [facility] [address] [address] [address] Emily Hercules VLDL CALC 31.0 mg/dL Normal [facility] Comment on above: Performed By: #### C MP, BNP, TSH, HSTROPN #### [facility] [address] [address] [address] Emily Hercules PROF 14(COMP METB)on 021 Albumin [Mass/Vol] 3.8 g/dL Normal 3.5-5.0 [facility] Comment on above: Performed By: #### T 7, CMP, LIPID, TSH #### [facility] [address] [address] [address] Emily Hercules Albumin/Globulin [Mass ratio] 1.1 {ratio} Normal [facility] Comment on above: Performed By: #### T 7, CMP, LIPID, TSH #### [facility] [address] [address] [address] Emily Hercules ALP [Catalytic activity/Vol] 57 U/L Normal 38-126 [facility] Comment on above: Performed By: #### T 7, CMP, LIPID, TSH #### [facility] [address] [address] [address] Emily Hercules ALT [Catalytic activity/Vol] 57 U/L Critically high 9-52 [facility] Comment on above: Performed By: #### T 7, CMP, LIPID, TSH #### [facility] [address] [address] [address] Emily Hercules Anion gap [Moles/Vol] 11.7 mmol/L Normal [facility] Comment on above: Performed By: #### T 7, CMP, LIPID, TSH #### [facility] [address] [address] [address] Emily Hercules AST [Catalytic activity/Vol] 35 U/L Normal 14-36 [facility] Comment on above: Performed By: #### T 7, CMP, LIPID, TSH #### [facility] [address] [address] [address] Emily Hercules Bilirubin [Mass/Vol] 0.7 mg/dL Normal 0.2-1.3 [facility] Comment on above: Performed By: #### T 7, CMP, LIPID, TSH #### [facility] [address] [address] [address] Emily Hercules Calcium [Mass/Vol] 8.8 mg/dL Normal 8.4-10.2 [facility] Comment on above: Performed By: #### T 7, CMP, LIPID, TSH #### [facility] [address] [place] [address] Dr. Emily Hercules Chloride [Moles/Vol] 105 mmol/L Normal 98-107 [facility] Comment on above: Performed By: #### T 7, CMP, LIPID, TSH #### [facility] [address] [place] [address] Dr. Emily Hercules CO2 [Moles/Vol] 26.1 mmol/L Normal 22.0-30.0 [facility] Comment on above: Performed By: #### T 7, CMP, LIPID, TSH #### [facility] [address] [place] [address] Dr. Emily Hercules Creatinine [Mass/Vol] 1.34 mg/dL Critically high 0.52-1.04 [facility] Comment on above: Performed By: #### T 7, CMP, LIPID, TSH #### [facility] [address] [place] [address] Dr. Emily Hercules EGFR-AF TANZANIAN 51 mL/min/1.73m2 Critically low >=60 [facility] Comment on above: Performed By: #### T 7, CMP, LIPID, TSH #### [facility] [address] [place] [address] Dr. Emily Hercules EGFR-NON AF TANZANIAN 42 mL/min/1.73m2 Critically low >=60 [facility] Comment on above: Performed By: #### T 7, CMP, LIPID, TSH #### [facility] [address] [place] [address] Dr. Emily Hercules Globulin (S) [Mass/Vol] 3.4 g/dL Normal [facility] Comment on above: Performed By: #### T 7, CMP, LIPID, TSH #### [facility] [address] [address] [address] Emily Hercules Glucose [Mass/Vol] 92 mg/dL Normal 74-106 [facility] Comment on above: Performed By: #### T 7, CMP, LIPID, TSH #### [facility] [address] [address] [address] Emily Hercules Potassium [Moles/Vol] 3.8 mmol/L Normal 3.4-5.0 [facility] Comment on above: Performed By: #### T 7, CMP, LIPID, TSH #### [facility] [address] [address] [address] Emily Hercules Protein [Mass/Vol] 7.2 g/dL Normal 6.1-8.2 [facility] Comment on above: Performed By: #### T 7, CMP, LIPID, TSH #### [facility] [address] [address] [address] Emily Hercules Sodium [Moles/Vol] 139 mmol/L Normal 137-145 [facility] Comment on above: Performed By: #### T 7, CMP, LIPID, TSH #### [facility] [address] [address] [address] Emily Hercules Urea nitrogen [Mass/Vol] 21.0 mg/dL Critically high 7.0-17.0 [facility] Comment on above: Performed By: #### T 7, CMP, LIPID, TSH #### [facility] [address] [address] [address] Emily Hercules Urea nitrogen/Creatinine [Mass ratio] 15.7 mg/mg Normal [facility] Comment on above: Performed By: #### T 7, CMP, LIPID, TSH #### [facility] [address] [address] [address] Emily Hercules TSHon 09-02-2021 TSH 1.130 uIU/mL Normal 0.470-4.680 [facility] Comment on above: Performed By: #### T 7, CMP, LIPID, TSH #### [facility] [address] [place] [address] Dr. Emily Hercules TSH RANGE SEE BELOW Normal [facility] Comment on above: Result Comment: <0.3 4 UIU/ml HYPERTHYROID 0.34-5.60 UIU/ml EUTHYROID >5.60 UIU/ml HYPOTHYROID Performed By: #### T 7, CMP, LIPID, TSH #### [facility] [address] [place] [address] Dr. Emily Hercules BNPon 08-24-2021 Natriuretic peptide B (Bld) [Mass/Vol] 98.0 pg/mL Normal <=450.0 [facility] Comment on above: Performed By: #### C MP, BNP, TSH, HSTROPN #### [facility] [address] [place] [address] Dr. Emily Hercules CBC AUTO DIFFon 08-24-2021 BASO # 0.0 103/ul Normal 0.0-0.1 [facility] Comment on above: Performed By: #### C MP, BNP, TSH, HSTROPN #### [facility] [address] [place] [address] Dr. Emily Hercules Basophils/100 WBC (Bld) 0.6 % Normal 0.2-2.0 [facility] Comment on above: Performed By: #### C MP, BNP, TSH, HSTROPN #### [facility] [address] [place] [address] Dr. Emily Hercules EO # 0.3 103/ul Normal 0.0-0.7 [facility] Comment on above: Performed By: #### C MP, BNP, TSH, HSTROPN #### [facility] [address] [place] [address] Dr. Emily Hercules Eosinophils/100 WBC (Bld) 4.1 % Normal 0.9-7.0 [facility] Comment on above: Performed By: #### C MP, BNP, TSH, HSTROPN #### [facility] [address] [place] [address] Dr. Emily Hercules Erythrocyte distribution width (RBC) [Ratio] 13.6 % Normal 11.0-15.0 [facility] Comment on above: Performed By: #### C MP, BNP, TSH, HSTROPN #### [facility] [address] [place] [address] Dr. Emily Hercules Hematocrit (Bld) [Volume fraction] 39.4 % Normal 36.0-48.0 [facility] Comment on above: Performed By: #### C MP, BNP, TSH, HSTROPN #### [facility] [address] [place] [address] Dr. Emily Hercules Hemoglobin (Bld) [Mass/Vol] 13.4 g/dL Normal 12.0-16.0 [facility] Comment on above: Performed By: #### C MP, BNP, TSH, HSTROPN #### [facility] [address] [place] [address] Dr. Emily Hercules IG # 0.02 10e3/ul Normal 0.00-0.03 [facility] Comment on above: Performed By: #### C MP, BNP, TSH, HSTROPN #### [facility] [address] [place] [address] Dr. Emily Hercules IG % 0.3 % Normal 0.0-0.5 [facility] Comment on above: Performed By: #### C MP, BNP, TSH, HSTROPN #### [facility] [address] [place] [address] Dr. Emily Hercules LYMPH # 1.8 103/ul Normal 1.2-3.8 [facility] Comment on above: Performed By: #### C MP, BNP, TSH, HSTROPN #### [facility] [address] [place] [address] Dr. Emily Hercules Lymphocytes/100 WBC (Bld) 25.9 % Normal 20.5-60.0 [facility] Comment on above: Performed By: #### C MP, BNP, TSH, HSTROPN #### [facility] [address] [place] [address] Dr. Emily Hercules MANUAL DIFF REQ NO Normal [facility] Comment on above: Performed By: #### C MP, BNP, TSH, HSTROPN #### [facility] [address] [place] [address] Dr. Emily Hercules MCH (RBC) [Entitic mass] 29.9 pg Normal 26.7-34.0 [facility] Comment on above: Performed By: #### C MP, BNP, TSH, HSTROPN #### [facility] [address] [place] [address] Dr. Emily Hercules MCHC (RBC) [Mass/Vol] 34.0 g/dL Normal 29.9-35.2 [facility] Comment on above: Performed By: #### C MP, BNP, TSH, HSTROPN #### [facility] [address] [place] [address] Dr. Emily Hercules MCV (RBC) [Entitic vol] 87.9 fL Normal 81.0-99.0 [facility] Comment on above: Performed By: #### C MP, BNP, TSH, HSTROPN #### [facility] [address] [place] [address] Dr. Emily Hercules MONO # 0.4 103/ul Normal 0.3-0.8 [facility] Comment on above: Performed By: #### C MP, BNP, TSH, HSTROPN #### [facility] [address] [place] [address] Dr. Emily Hercules Monocytes/100 WBC (Bld) 5.8 % Normal 1.7-12.0 [facility] Comment on above: Performed By: #### C MP, BNP, TSH, HSTROPN #### [facility] [address] [place] [address] Dr. Emily Hercules NEUT # 4.4 103/ul Normal 1.4-6.5 [facility] Comment on above: Performed By: #### C MP, BNP, TSH, HSTROPN #### [facility] [address] [place] [address] Dr. Emily Hercules Neutrophils/100 WBC (Bld) 63.3 % Normal 43.0-75.0 [facility] Comment on above: Performed By: #### C MP, BNP, TSH, HSTROPN #### [facility] [address] [address] [address] Emily Hercules Platelet mean volume (Bld) [Entitic vol] 11.7 fL Normal 9.5-13.5 [facility] Comment on above: Performed By: #### C MP, BNP, TSH, HSTROPN #### [facility] [address] [address] [address] Emily Hercules PLT 122 103/ul Critically low 150-450 [facility] Comment on above: Performed By: #### C MP, BNP, TSH, HSTROPN #### [facility] [address] [place] [address] Dr. Emily Hercules RBC 4.48 106/ul Normal 4.20-5.40 [facility] Comment on above: Performed By: #### C MP, BNP, TSH, HSTROPN #### [facility] [address] [place] [address] Dr. Emily Hercules WBC 6.9 103/ul Normal 4.0-11.0 [facility] Comment on above: Performed By: #### C MP, BNP, TSH, HSTROPN #### [facility] [address] [place] [address] Dr. Emily Hercules CTA CHEST WO W [...] NATY BALDERRAMA Date: 2021-08-24 17:14 Normal [facility] Covid-19 PCR (CVDTBH)on 07-30 SARS-CoV-2 (COVID-19) RNA SUKHWINDER+probe Ql (Unsp spec) Not detected Normal NOT DETECTED [facility] Comment on above: Result Comment: This test is not yet approved or cleared by the [place] FDA. When there are no FDA-approved or cleared tests available, and other criteria are met, FDA can make tests available under an emergency access mechanism called an Emergency Use Authorization (EUA). The EUA for this test is supported by the [place] of Health and Human Service's (HHS's) declaration [...] #### C MP, BNP, TSH, HSTROPN #### [facility] [address] [place] [address] Dr. Emily Hercules LACTATE/LACTIC ACIDon 2020 Lactate [Moles/Vol] 0.5 mmol/L Critically low 0.7-2.0 [facility] Comment on above: Performed By: #### C MP, BNP, TSH, HSTROPN #### [facility] [address] [place] [address] Dr. Emily Hercules PROF 14(COMP METB)on 021 Albumin [Mass/Vol] 3.7 g/dL Normal 3.5-5.0 [facility] Comment on above: Performed By: #### C MP, BNP, TSH, HSTROPN #### [facility] [address] [place] [address] Dr. Emily Hercules Albumin/Globulin [Mass ratio] 1.0 {ratio} Normal [facility] Comment on above: Performed By: #### C MP, BNP, TSH, HSTROPN #### [facility] [address] [place] [address] Dr. Emily Hercules ALP [Catalytic activity/Vol] 63 U/L Normal 38-126 [facility] Comment on above: Performed By: #### C MP, BNP, TSH, HSTROPN #### [facility] [address] [place] [address] Dr. Emily Hercules ALT [Catalytic activity/Vol] 66 U/L Critically high 9-52 [facility] Comment on above: Performed By: #### C MP, BNP, TSH, HSTROPN #### [facility] [address] [place] [address] Dr. Emily Hercules Anion gap [Moles/Vol] 12.3 mmol/L Normal [facility] Comment on above: Performed By: #### C MP, BNP, TSH, HSTROPN #### [facility] [address] [place] [address] Dr. Emily Hercules AST [Catalytic activity/Vol] 48 U/L Critically high 14-36 [facility] Comment on above: Performed By: #### C MP, BNP, TSH, HSTROPN #### [facility] [address] [address] [address] Emily Hercules Bilirubin [Mass/Vol] 0.6 mg/dL Normal 0.2-1.3 [facility] Comment on above: Performed By: #### C MP, BNP, TSH, HSTROPN #### [facility] [address] [place] [address] Dr. Emily Hercules Calcium [Mass/Vol] 9.2 mg/dL Normal 8.4-10.2 [facility] Comment on above: Performed By: #### C MP, BNP, TSH, HSTROPN #### [facility] [address] [place] [address] Dr. Emily Hercules Chloride [Moles/Vol] 103 mmol/L Normal 98-107 [facility] Comment on above: Performed By: #### C MP, BNP, TSH, HSTROPN #### [facility] [address] [place] [address] Dr. Emily Hercules CO2 [Moles/Vol] 25.2 mmol/L Normal 22.0-30.0 [facility] Comment on above: Performed By: #### C MP, BNP, TSH, HSTROPN #### [facility] [address] [place] [address] Dr. Emily Hercules Creatinine [Mass/Vol] 1.49 mg/dL Critically high 0.52-1.04 [facility] Comment on above: Performed By: #### C MP, BNP, TSH, HSTROPN #### [facility] [address] [place] [address] Dr. Emily Hercules EGFR-AF TANZANIAN 45 mL/min/1.73m2 Critically low >=60 [facility] Comment on above: Performed By: #### C MP, BNP, TSH, HSTROPN #### [facility] [address] [place] [address] Dr. Emily Hercules EGFR-NON AF TANZANIAN 37 mL/min/1.73m2 Critically low >=60 [facility] Comment on above: Performed By: #### C MP, BNP, TSH, HSTROPN #### [facility] [address] [place] [address] Dr. Emily Hercules Globulin (S) [Mass/Vol] 3.6 g/dL Normal [facility] Comment on above: Performed By: #### C MP, BNP, TSH, HSTROPN #### [facility] [address] [place] [address] Dr. Emily Hercules Glucose [Mass/Vol] 100 mg/dL Normal 74-106 [facility] Comment on above: Performed By: #### C MP, BNP, TSH, HSTROPN #### [facility] [address] [place] [address] Dr. Emily Hercules Potassium [Moles/Vol] 4.5 mmol/L Normal 3.4-5.0 [facility] Comment on above: Performed By: #### C MP, BNP, TSH, HSTROPN #### [facility] [address] [place] [address] Dr. Emily Hercules Protein [Mass/Vol] 7.3 g/dL Normal 6.1-8.2 [facility] Comment on above: Performed By: #### C MP, BNP, TSH, HSTROPN #### [facility] [address] [place] [address] Dr. Emily Hercules Sodium [Moles/Vol] 136 mmol/L Critically low 137-145 [facility] Comment on above: Performed By: #### C MP, BNP, TSH, HSTROPN #### [facility] [address] [place] [address] Dr. Emily Hercules Urea nitrogen [Mass/Vol] 22.0 mg/dL Critically high 7.0-17.0 [facility] Comment on above: Performed By: #### C MP, BNP, TSH, HSTROPN #### [facility] [address] [place] [address] Dr. Emily Hercules Urea nitrogen/Creatinine [Mass ratio] 14.8 mg/mg Normal [facility] Comment on above: Performed By: #### C MP, BNP, TSH, HSTROPN #### [facility] [address] [place] [address] Dr. Emily Hercules PROTIMEon 08-24-2021 INR Coag (PPP) [Relative time] 1.08 {INR} Normal [facility] Comment on above: Performed By: #### C MP, BNP, TSH, HSTROPN #### [facility] [address] [place] [address] Dr. Emily Hercules INR GUIDELINES SEE BELOW Normal [facility] Comment on above: Result Comment: GUILLERMO RED INR: 2.0 - 3.0 CONDITIONS NOT LISTED BELOW 2.5 - 3.5 FOR PROSTHETIC HEART VALVE REPLACEMENT 2.5 - 3.5 RECURRENT THROMBOSIS Performed By: #### C MP, BNP, TSH, HSTROPN #### [facility] [address] [place] [address] Dr. Emily Hercules PT Coag (PPP) [Time] 11.6 s Normal 9.0-11.6 [facility] Comment on above: Performed By: #### C MP, BNP, TSH, HSTROPN #### [facility] [address] [place] [address] Dr. Emily Hercules PTTon 08-24-2021 aPTT Coag (Bld) [Time] 29.6 s Normal 22.3-36.2 [facility] Comment on above: Performed By: #### C MP, BNP, TSH, HSTROPN #### [facility] [address] [place] [address] Dr. Emily Hrecules TROPONIN, HIGH SENSITIVITYon 08-24-2021 HSTROP 4.9 pg/mL Normal 4.0-35.5 [facility] Comment on above: Result Comment: CUT- OFF POINTS HAVE BEEN ESTABLISHED BASED ON THE FOURTH UNIVERSAL DEFINITIONS OF MYOCARDIAL INFARCTION. THE UPPER REFERENCE LIMIT (URL) OF TROPONIN, DEFINED THE 99TH PERCENTILE OF cTnI DISTRIBUTION IN A REFERENCE POPULATION, HAS BEEN CONFIRMED THE DECISION THRESHOLD FOR NE DIAGNOSIS. Performed By: #### C MP, BNP, TSH, HSTROPN #### [facility] [address] [place] [address] Dr. Emily Hercules HSTROP 7.0 pg/mL Normal 4.0-35.5 [facility] Comment on above: Result Comment: CUT- OFF POINTS HAVE BEEN ESTABLISHED BASED ON THE FOURTH UNIVERSAL DEFINITIONS OF MYOCARDIAL INFARCTION. THE UPPER REFERENCE LIMIT (URL) OF TROPONIN, DEFINED THE 99TH PERCENTILE OF cTnI DISTRIBUTION IN A REFERENCE POPULATION, HAS BEEN CONFIRMED THE DECISION THRESHOLD FOR NE DIAGNOSIS. Performed By: #### C MP, BNP, TSH, HSTROPN #### [facility] [address] [address] [address] Emily Hercules TSHon 08-24-2021 TSH 1.614 uIU/mL Normal 0.470-4.680 [facility] Comment on above: Performed By: #### C MP, BNP, TSH, HSTROPN #### [facility] [address] [address] [address] Emily Hercules TSH RANGE SEE BELOW Normal [facility] Comment on above: Result Comment: <0.3 4 UIU/ml HYPERTHYROID 0.34-5.60 UIU/ml EUTHYROID >5.60 UIU/ml HYPOTHYROID Performed By: #### C MP, BNP, TSH, HSTROPN #### [facility] [address] [address] [address] Emily Hercules US KARINE DOP LEG [...] MARCIAL BOB Date: 2021-08-24 16:22 Normal [facility] Test (Serum)on Test, Serum Negative Normal [facility] Comment on above: Performed By: #### 3 [id number] ####[facility] [address] [place] [address] CBC With Differentialon 04-28 Basophils Auto #/vol (Bld) 0.06 10*3/uL Normal 0.01-0.07 [facility] Comment on above: Performed By: #### 2 [id number] ####[facility] [address] [place] [address] Basophils/100 WBC Auto (Bld) 0.7 % Normal 0.1-1.2 [facility] Comment on above: Performed By: #### 2 [id number] ####[facility] [address] [place] [address] Eosinophils 0.51 10*3/uL High 0.04-0.50 [facility] are Comment on above: Performed By: #### 2 [id number] ####[facility] [address] [place] [address] Eosinophils/100 leukocytes 6.1 % Normal 0.0-8.1 [facility] Comment on above: Performed By: #### 2 [id number] ####[facility] [address] [place] [address] Erythrocyte distribution width Auto Ratio (RBC) 13.2 % Normal 12.0-15.4 [facility] Comment on above: Performed By: #### 2 [id number] ####[facility] [address] [place] [address] Erythrocytes (RBC) 4.67 10*6/uL Normal 3.85-5.10 [facility] Comment on above: Performed By: #### 2 [id number] ####[facility] [address] [place] [address] Erythrocytes (RBC) 0.0 /100{WBCs} Normal [facility] Comment on above: Performed By: #### 2 [id number] ####[facility] [address] [place] [address] Erythrocytes (RBC) 0.00 10*3/uL Normal [facility] Comment on above: Performed By: #### 2 [id number] ####[facility] [address] [place] [address] Hematocrit (HCT) 40.8 % Normal 36.5-46.6 [facility] Comment on above: Performed By: #### 2 [id number] ####[facility] [address] [place] [address] Hemoglobin mass conc (Bld) 13.6 g/dL Normal 11.8-15.3 [facility] Comment on above: Performed By: #### 2 [id number] ####[facility] [address] [place] [address] Imm Grans Absolute 0.02 10*3/uL Normal 0.00-0.21 [facility] Comment on above: Performed By: #### 2 [id number] ####[facility] [address] [place] [address] Immature granulocytes #/vol (Bld) 0.2 % Normal [facility] Comment on above: Performed By: #### 2 [id number] ####[facility] [address] [place] [address] Lymphocytes 2.15 10*3/uL Normal 0.40-2.84 [facility] are Comment on above: Performed By: #### 2 [id number] ####[facility] [address] [place] [address] Lymphocytes/100 leukocytes 25.8 % Normal 15.7-50.5 [facility] Comment on above: Performed By: #### 2 [id number] ####[facility] [address] [place] [address] MCH 29.1 pg Normal 27.5-33.0 [facility] Comment on above: Performed By: #### 2 [id number] ####[facility] [address] [place] [address] MCHC mass conc (RBC) 33.3 g/dL Normal 30.1-35.0 [facility] Comment on above: Performed By: #### 2 [id number] ####[facility] [address] [place] [address] MCV 87.4 fL Normal 85.4-100.0 [facility] Comment on above: Performed By: #### 2 [id number] ####[facility] [address] [place] [address] Monocytes 0.57 10*3/uL Normal 0.25-0.83 [facility] Comment on above: Performed By: #### 2 277112 ####[facility] [address] [place] [address] Monocytes/100 leukocytes 6.9 % Normal 4.8-12.7 [facility] Comment on above: Performed By: #### 2 250085 ####[facility] [address] [place] [address] Neutrophils 5.01 10*3/uL Normal 1.95-6.85 [facility] are Comment on above: Performed By: #### 2 [id number] ####[facility] [address] [place] [address] Neutrophils/100 leukocytes 60.3 % Normal 36.8-73.2 [facility] Comment on above: Performed By: #### 2 [id number] ####[facility] [address] [place] [address] Platelet mean volume (PMV) 12.0 fL Normal 9.9-12.1 [facility] Comment on above: Performed By: #### 2 [id number] ####[facility] [address] [facility] [place] [address] Platelets 207 10*3/uL Normal 155-404 [facility] e Comment on above: Performed By: #### 2 [id number] ####[facility] [address] [facility] [place] [address] RDW SD 42.2 fL Normal 39.3-48.6 [facility] Comment on above: Performed By: #### 2 [id number] ####[facility] [address] [facility] [place] [address] WBC (Leukocytes) 8.3 10*3/uL Normal 4.4-9.9 [facility] Comment on above: Performed By: #### 2 [id number] ####[facility] [address] [place] [address] Partial Thromboplastin Timeo n 05-10-2017 aPTT 28.4 s Normal 22.1-35.3 [facility] Comment on above: Result Comment: Luis allen note new Heparin Therapeutic range effective 02/14/17.Heparin Therapeutic Range: 71 - 97 sec Performed By: #### 3 [id number] ####[facility] [address] [place] [address] Prothrombin Timeon INR Coag RelTime (PPP) 1.00 {INR} Normal 0.85-1.16 [facility] Comment on above: Result Comment: Coum vanesa Therapy:1.5 - 2.0 Low Intensity Therapy2.0 - 3.0 Moderate Intensity Therapy2.5 - 3.5 High (1) Intensity Therapy3.0 - 4.0 High (2) Intensity Therapy Performed By: #### 3 [id number] ####[facility] [address] [place] [address] Prothrombin time (PT) Coag time (PPP) 13.1 s Normal 11.3-14.5 [facility] are Comment on above: Performed By: #### 3 [id number] ####[address] [address] Vital Signs Date Time Vital Sign Value Performing Clinician Facility 04-28-2025 09:49-0400 Body height 160 cm [employer] Work Phone: [facility] 04-28-2025 09:49-0400 Body mass index (BMI) [Ratio] 35.78 kg/m2 [employer] Work Phone: [facility] 04-28-2025 09:49-0400 Body weight 91.63 kg [employer] Work Phone: [facility] 04-17-2025 09:13-0400 Body height 165.1 cm [employer] Work Phone: [facility] 04-17-2025 09:13-0400 Body mass index (BMI) [Ratio] 33.61 kg/m2 [employer] Work Phone: [facility] 04-17-2025 09:13-0400 Body weight 91.63 kg [employer] Work Phone: [facility] 04-17-2025 09:13-0400 Diastolic blood pressure 75 mm[Hg] Clyde Juventino DO Work Phone: [facility] 04-17-2025 09:13-0400 Systolic blood pressure 115 mm[Hg] Clyde Choi DO Work Phone: [facility] 04-12-2025 11:31-0400 Body temperature 98.3 [degF] Cabrera Jones MD Work Phone: [facility] 04-12-2025 11:31-0400 Diastolic blood pressure 60 mm[Hg] Cabrera Jones MD Work Phone: [facility] 04-12-2025 11:31-0400 Heart rate 60 /min Cabrera Jones MD Work Phone: [facility] 04-12-2025 11:31-0400 Respiratory rate 16 /min Cabrera Jones MD Work Phone: [facility] 04-12-2025 11:31-0400 SaO2% (BldA) [Mass fraction] 98 % Cabrera Jones MD Work Phone: [facility] 04-12-2025 11:31-0400 Systolic blood pressure 98 mm[Hg] Cabrera Jones MD Work Phone: [facility] 04-12-2025 06:00-0400 Body weight 94 kg Cabrera Jones MD Work Phone: [facility] 04-11-2025 20:00-0400 Inhaled oxygen flow rate 8 L/min Cabrera Jones MD Work Phone: [facility] 04-11-2025 12:06-0400 Body height 160.02 cm Cabrera Jones MD Work Phone: [facility] 12-24-2024 14:38-0500 Body height 160 cm Edison Ardon MD Work Phone: [facility] 12-24-2024 14:38-0500 Body mass index (BMI) [Ratio] 33.3 kg/m2 Edison Ardon MD Work Phone: [facility] 12-24-2024 14:38-0500 Body temperature 98.2 [degF] Edison Arodn MD Work Phone: [facility] 12-24-2024 14:38-0500 Body weight 85.28 kg Edison Ardon MD Work Phone: [facility] 12-24-2024 14:38-0500 Diastolic blood pressure 79 mm[Hg] Edison Ardon MD Work Phone: [facility] 12-24-2024 14:38-0500 Heart rate 89 /min Edison Ardon MD Work Phone: [facility] 12-24-2024 14:38-0500 Respiratory rate 14 /min Edison Ardon MD Work Phone: [facility] 12-24-2024 14:38-0500 SaO2% (BldA) [Mass fraction] 98 % Edison Ardon MD Work Phone: [facility] 12-24-2024 14:38-0500 Systolic blood pressure 117 mm[Hg] Edison Ardon MD Work Phone: [facility] 11-24-2024 13:51-0500 Body mass index (BMI) [Ratio] 34.72 kg/m2 Edison Ardon MD Work Phone: [facility] 11-24-2024 13:51-0500 Body weight 88.91 kg Edison Ardon MD Work Phone: [facility] Encounters Encounter Date Encounter Type Care Provider Facility Start: 07-01-2025 End: 07-01-2025 ambulatory Cabrera Jones MD Work Phone: [facility] Work Phone: Start: 07-01-2025 End: 07-01-2025 Departed Referred Cabrera Francis MD -[facility] Start: 06-12-2025 End: 06-12-2025 ambulatory Cabrera Jones MD Work Phone: [facility] Work Phone: Start: 06-12-2025 End: [...] management of inpatient Clyde Choi DO -[facility] Work Phone: Start: 12-24-2024 End: 12-24-2024 Patient encounter procedure Edison Ardon MD Work Phone: [facility] Comment on above: Diaphragmatic hernia without obstruction and without gangrene (Primary Dx) Start: 12-24-2024 End: 12-24-2024 ambulatory EDISON ARDON Facility:[facility] Start: 12-24-2024 End: 12-24-2024 Subsequent hospital visit by physician [facility] Qb[facility] (I-Stat) Radiology Comment on above: Diaphragmatic hernia without obstruction and without gangrene [K44.9] Start: 11-24-2024 End: 11-24-2024 Telephone encounter Edison Ardon MD Work Phone: [facility] Comment on above: Appointment Consult; Appointment Confirmation Request Outside [facility] Records; Received Outside Medical Records Start: 05-12-2022 End: 05-12-[address] CABRERA JONES Facility:[facility] Start: 09-20-2021 End: 09-20-[address] CABRERA JONES Facility:[facility] Start: 09-15-2021 End: 09-16-[address] CABRERA JONES Facility:[facility] Start: 09-02-2021 End: 09-03-[address] CABRERA JONES Facility:[facility] Start: 08-24-2021 End: 08-24-[address] MARCIAL BOB Facility:[facility] Start: 05-16-2017 End: 05-16-2017 Ambulatory Tito VALLE Facility:[facility] Start: 05-10-2017 Ambulatory Tito [...] identified in Urine by Culture Urine Culture [facility] Start: 07-01-2025 Urine culture [facility] Start: 06-12-2025 Bacteria identified in Urine by Culture Urine Culture [facility] Start: 06-12-2025 Urine culture [facility] Start: 04-28-2025 End: 04-28-2025 Patient encounter procedure 04/28/2025 9:30 AM EDT Office Visit [facility] [address] [place] [address] Clyde Choi, DO [address] [place] [address] [address] [facility] Start: 04-17-2025 End: 04-17-2025 Patient encounter procedure 04/17/2025 9:15 AM EDT Office Visit [facility] [address] [place] [id number] Clyde Choi, DO [address] [place] [address] [address] [facility] Start: 04-12-2025 [facility] Start: 04-11-2025 Hospital admission [facility] Start: 04-11-2025 Resection of Appendi x, Percutaneous Endoscopic Approach Resection of Appendix, Percutaneous Endoscopic Approach [facility] Start: 12-24-2024 End: 12-24-2024 Patient encounter procedure Radiology Comment on above: Hiatal Hernia Start: 06-29-2024 Covid-19 Vaccine ( season) Covid-19 Vaccine ( season) [facility] Start: 06-29-2024 Covid-19 Vaccine ( season) Covid-19 Vaccine ( season) [facility] Start: 06-29-2024 Influenza vaccination Influenza Vacc ine (#1) [facility] Start: 2023 Pneumococcal Vaccine : 50+ (1 of 1 - PCV) Pneumococcal Vaccine: 50+ (1 of 1 - PCV) [facility] Start: 2023 Screening for malign ant neoplasm of lung Lung Cancer Screening [facility] Start: 2023 Shingrix Vaccine (1 of 2) Shingrix Vaccine (1 of 2) [facility] Start: 2018 Diabetes Screening Diabetes Screenin g [facility] Start: 2018 Lipid panel Lipid Screening [facility] Start: 2018 Screening for malign ant neoplasm of colon [facility] Start: 2013 Screening for malign ant neoplasm of breast Mammogram Screening [facility] Start: 1994 Screening for malign ant neoplasm of cervix Cervical Cancer Screening [facility] Start: 1992 Hepatitis B Vaccine (1 of 3 - 19+ 3-dose series) Hepatitis B Vaccine (1 of 3 - 19+ 3-dose series) [facility] Start: 1992 Urine microalbumin profile DTaP,Tdap,Td Vaccine (1 - Tdap) [facility] Start: 1991 Anxiety Screening Anxiety Screening [facility] Start: 1991 Depression Screening Depression Scre ening [facility] Start: 1991 Hepatitis C screening Hepatitis C Sc reening [facility] Start: 1991 HIV screening HIV Screening [facility] Patient Education Know your Meds [facility] Work Phone: Patient referral [facility] Work Phone: End: 12-24-2025 XR Esophagus Views W contrast PO XR ESOPHAGRAM Radiology Routine Diaphragmatic hernia without obstruction and without gangrene 1 Occurrences starting 11/24/2024 until 12/24/2025 [facility] Work Phone: Comment on above: 1 Occurrences starti ng 11/24/2024 until 12/24/2025 Immunizations Immunization Date Immunization Notes Care Provider Emmanuel mullen 06-28-2020 influenza virus vacc ine, unspecified formulation Gi (I-Stat) [facility] Payers Date Payer Category Payer Medicare [id number] 2025 Self-pay 2018 Medicaid [id number] 2018 Medicare (Managed Care) 1.2. [id number] 2018 Unknown [facility] AND [facility] MEDICARE ADVANTAGE HMO [id number] 2018-Present [phone] [address] [place] [address] HMO [id number] 1973 Unknown [id number] 93 1973 Unknown [id number] 93 1973 Unknown [id number] 93 1973 Unknown [id number] 93 1973 Unknown [id number] [id number] 93 1973 Unknown [id number] [id number] 259 1973 Unknown [id number] [id number] 259 1959 Medicaid [id number] 1959 Unknown [id number] Medicare [id number] Unknown MMO [id number] Unknown [id number] 31 Unknown [id number] 31 Unknown [id number] 31 Social History Date Type Detail Facility Start: [facility]-24-[facility]24 [facility] Start: 05-06-2001 End: 05-06-2019 History of tobacco use Current smoker [facility] Start: 05-06-2001 End: 05-06-2019 History of tobacco use Cigarette Smoker [facility] Start: 11-24-2024 End: 04-28-2025 Cigarettes smoked current (pack per day) - Reported 1.5 [facility] Start: 11-24-2024 Tobacco use and exposure Smokeless tobacco non-user [facility] Start: 11-24-2024 End: 12-24-2024 Alcoholic beverage intake Ex-drinker (finding) [facility] Start: 11-24-2024 End: 04-28-2025 Tobacco use panel [facility] National Score (1-10 0), lower number is lower risk Not on file [facility] Start: 11-24-2024 Tobacco Comment using E cig [facility] Start: 1975 Sex assigned at Not on file [facility] Tobacco smoking stat [facility] Tobacco smoking consumption unknown [facility] Start: 04-17-2025 Tobacco smoking stat [facility] Never smoked tobacco [facility] Start: 04-17-2025 Tobacco use and exposure Former smokeless tobacco user [facility] Start: 04-17-2025 End: 04-28-2025 Alcoholic beverage intake Defer [facility] Start: 04-17-2025 Tobacco Comment vape [facility] Sex Female (finding) [facility] Start: 1975 Sex Assigned At Female F [facility] Goals Date Patient Goal Desired Activity /State Functional Status Date Assessment Result Facility 04-12-2025 Functional status 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 documented in this encounter [facility] 04-17-2025 History of Presen t illness [...] PCL 04/15/2025 10:01 Attached To: GENERAL PATHOLOGY [[id number]] Orders Only on 04/15/25 with Clyde Choi DO Source Information Sonia Jose Luis [facility] Document History ASSESSMENT AND PLAN: Assessment/Plan [...] follow-ups on file. documented in this encounter [facility] 04-11-2025 Evaluation note Diagnosis Onset Date Resolution Leukocytosis resolved April 11 025 11:26am Right lower quadrant pain resolved April 11, 2025 11:26am Acute appendicitis inactive March 292024 11:26am [facility] Work Phone: 1(796) 459-767303-08-2025 NoteHNO ID: [id number] Author: EDISON ARDON MD Service: ? Author Type: Physician Type: Progress Notes Filed: 01/03/2025 09:17 Note Text: I have read and reviewed the documentation and agree. I wish to add the followingI wish to add the following findings which will be communicated back to the requesting physician. Edison Ardon MD [facility] STAFF PHYSICIAN NOTE OF PERSONAL INVOLVEMENT IN [...] SERVICE: Dec 24, 2024 TIME OF SERVICE: [address] [place], [place] 5539603-08-2025 History of Present illness Narrative* Edison Ardon MD - 01/03/2025 9:12 AM EST I have read and reviewed the documentation and agree. I wish to add the followingI wish to add the following findings which will be communicated back to the requesting physician. Edison Ardon MD [facility] STAFF PHYSICIAN NOTE OF PERSONAL INVOLVEMENT IN [...] THORACIC SURGERY OUTPATIENT CONSULT NOTE Kiya Bhat [id number] Requesting Provider: Self Thoracic Physician: Edison Ardon [...] personally performed by: Duglas Manjarrez Patient-Entered Questionnaire [facility] Esophageal Questionnaire 12/23/2024 Domain Symptom Raw Score [...] (Range 6-30) Incomplete Incomplete documented in this encounterOhio[facility]02-26-2025 NoteHNO ID: [id number] Author: HEENA MANJARREZ MD Service: ? Author Type: Fellow Type: Progress Notes Filed: 01/03/2025 09:17 Note Text: [facility] THORACIC SURGERY OUTPATIENT CONSULT NOTE Kiya Bhat [id number] Requesting Provider: Self Thoracic Physician: Edison Ardon [...] Radiology: Patient is being referred to Edison Ardno by Self for Hiatal Hernia Pathology: Procedures: [...] personally performed by: Duglas Manjarrez Patient-Entered Questionnaire [facility] Esophageal Questionnaire 12/23/2024 Domain Symptom Raw Score [...] Incomplete (Range 6-36) Incomplete (Range 6-30) [facility] History of Present illness Narrative* Sonia [...] PATIENT PRESENTS WITH AN IMPLANTABLE OR ATTACHED HEALTH AND NUTRITION SPECIALIST: No RADIOLOGY DEPARTMENT: General X-ray: Exam(s) Completed: GI/ Procedure(s): Esophogram with barium contrast PERIPHERAL IV DATA: Not applicable SIGNED BY: RT Wil(Sybil) December 24, 2024 1:50 PM documented in this encounterOhio[facility]02-26-2025 NoteHNO ID: [id number] Author: SONIA BENNETT RT(R) Service: Radiology Author [...] PATIENT PRESENTS WITH AN IMPLANTABLE OR ATTACHED HEALTH AND NUTRITION SPECIALIST: No RADIOLOGY DEPARTMENT: General X-ray: Exam(s) Completed: GI/ Procedure(s): Esophogram with barium contrast PERIPHERAL IV DATA: Not applicable SIGNED BY: Sonia Bennett RT(R) December 24, 2024 1:50 [facility]01-27-2025 Telephone encounter Note* Telephone Encounter - Trice Louis - 11/24/2024 4:37 PM EST Patient confirmed appointment scheduled with Dr. Ardon with barium on 12/24/24 [facility] Work Phone: 1(747) 424-358801-27-2025 Miscellaneous Notes* Telephone Encounter - Trice Louis [...] 11/24/2024 12:58 PM EST LOCAL PATIENT Received [employer] Staff Message from Gill Brar is former [...] office for scheduling. Please call pt at [phone]. Patient was informed consultation could be at [facility] or [facility] [place]: No Patient Registration: Registration complete/updated: yes Insurance card(s) scanned in [facility] with in the past year: No Pt's [employer] is active. Ok to communicate to pt via [employer] yes Medical Records: Records in [facility] (internal CC records): Yes (old) Imaging in [facility] (internal CC records): Yes (old) Care [...] for triage Renae Elliott documented in this encounterOhio[facility]01-27-2025 Telephone encounter Note * Telephone Encounter - Renae Holly - 11/24/2024 4:04 PM EST Received outside office note (scanned) to [facility]. Renae Chaudhry Dining Services Director [facility] Work Phone (unformatted): [phone] Miscellaneous Notes* Telephone Encounter - Renae Holly - 11/24/2024 4:04 PM EST Received outside office note (scanned) to [facility]. Renae Chaudhry Dining Services Director * Telephone Encounter - Renae Holly - 11/24/2024 2:12 PM EST Attempt #1 Requested Medical Records from the office of Dr. Cabrera Jones Spoke to: Jacki Phone #: [phone] Fax #: [phone] Jacki agreed to fax the last office note Renae Richa Elliott November 24, 2024 2:12 PM documented in this encounterOhio[facility]01-27-2025 Telephone encounter Note * Telephone Encounter - Renae Holly - 11/24/2024 2:12 PM EST Attempt #1 Requested Medical Records from the office of Dr. Cabrera Jones Spoke to: Jacki Phone #: [phone] Fax #: [phone] Jacki agreed to fax the last office note Renae Richa Elliott November 24, 2024 2:12 PM [facility]01-27-2025 Telephone encounter Note* Telephone Encounter - Jenni [...] with diet exercise) esophagram Jenni Mg, RN [facility]01-27-2025 Telephone encounter Note* Telephone Encounter - Renae Holly - 11/24/2024 12:58 PM EST LOCAL PATIENT Received [facility] Staff Message from Gill Brar is [...] office for scheduling. Please call pt at [phone]. Patient was informed consultation could be at [facility] or [facility] [place]: No Patient Registration: Registration complete/updated: yes Insurance card(s) scanned in [facility] with in the past year: No Pt's [employer] is active. Ok to communicate to pt via [employer] yes Medical Records: Records in [facility] (internal CC records): Yes (old) Imaging in [facility] (internal CC records): Yes (old) Care Everywhere - queried yes, downloaded No Linked Outside Organizations (list): n/a OSH Records Requested: none Date: N/A Outside Hospital(s) requested records from: n/a Received: none Uploaded: N/A. Waiting on additional records: No. Missing (list): N/A OSH Pathology Slides Requested: none Date: N/A Outside Hospital(s) slides requested from: n/a [facility] Radiology Imaging Requested: none Date: N/A Outside [...] Yes, Thoracic NPM for triage Renae Elliott [facility] Work Phone (unformatted): [phone] Telephone encounter Note* Telephone Encounter - Gill Barr - 11/24/2024 11:32 AM EST .RECEIVED CALL FROM: Patient PATIENT INFORMATION: Name: Kiya Bhat : 1975 (home) [phone] (cell) Email: [email or web address] Referring Provider: No referring provider defined for this encounter. Phone: N/A Fax: Requested Surgeon: Edison Ardon M.D., Ph.D. Reason for appointment/diagnosis: Diaphragmatic hernia without obstruction and without gangrene Gill Brar November 24, 2024 11:32 AM [facility]01-27-2025 Miscellaneous Notes* Telephone Encounter - Gill Brar - 11/24/2024 11:32 AM EST .RECEIVED CALL FROM: Patient PATIENT INFORMATION: Name: Kiya Bhat : 1975 (home) [phone] (cell) Email: [email or web address] Referring Provider: No referring provider defined for this encounter. Phone: N/A Fax: Requested Surgeon: Edison Ardon M.D., Ph.D. Reason for appointment/diagnosis: Diaphragmatic hernia without obstruction and without gangrene Gill Brar November 24, 2024 11:32 AM documented in this encounterOhiohealth [facility] Center05-04-2022 NoteChief Complaint consultation for sebaceous cyst HPI [...] type 2: Mother and Brother. Heart disease: Mother.[facility]Comment [facility]:Result Comment: Electronically Signed By: FRANK GALLO, Hemal Moore\Date and Time Signed: 03/01/22 16:21 EDTEvaluation note* Diagnosis Diaphragmatic hernia without obstruction and without gangrene- Primary documented in this encounter [facility]Evalunem[facility] foundation [facility]* Diagnosis Diaphragmatic hernia without obstruction and without gangrene documented in this encounter [facility]* Diagnosis Diaphragmatic hernia without obstruction and without gangrene- Primary documented in this encounter [facility] CenterEvalunem[facility] foundation note* Diagnosis Other acute appendicitis- Primary documented in this encounter [facility] HealthcareEvaluation note* Diagnosis Other acute appendicitis- Primary [facility] Diagnostic Procedure Only (Routine) - Authorized Specialty Diagnoses / Procedures Referred By Chandler berkowitz Referred To Contact XR IMAGING Diagnoses Diaphragmatic hernia without obstruction and without gangrene Procedures XR ESOPHAGRAM RADIOLOGIC EXAM ESOPHAGUS SINGLE CONTRAST STUDY Edison Ardon MD [address] [place] [address] [place] [address] Referral ID Status Reason Start Date Expiration Date Visits Requested Visits Authorized [id number] Authorized Auto-Generat ed Referral 11/24/2024 12/24/2025 1 1 [facility] Summary Purpose Family History No Family [...] section and content) DATE CREATED AUTHOR 04/24/2018 [facility] Healthcare DATE CREATED AUTHOR AUTHOR'S ORGANIZ ATION 03/03/2022 [facility] DATE CREATED AUTHOR AUTHOR'S ORGANIZ ATION 05/18/2022 [facility] DATE CREATED AUTHOR AUTHOR'S ORGANIZ ATION 01/05/2025 [facility] DATE CREATED AUTHOR AUTHOR'S ORGANIZ ATION 04/29/2025 [facility] dical [facility] DATE CREATED AUTHOR AUTHOR'S ORGANIZ ATION 07/03/2025 [facility] Source Comments (unrecognize d section and content) In the event this informatio n is protected by the Federal Confidentiality of Alcohol and Drug Abuse Patient Records regulations: The Federal rules restrict any use of the information to criminally investigate or prosecute any alcohol or drug abuse patient.[facility] CenterIn the event this information is protected by the Federal Confidentiality of Alcohol and Drug Abuse Patient Records regulations: The Federal rules restrict any use of the information to criminally investigate or prosecute any alcohol or drug abuse patient.[facility] CenterIn the event this information is protected by the Federal Confidentiality of Alcohol and Drug Abuse Patient Records regulations: The Federal rules restrict any use of the information to criminally investigate or prosecute any alcohol or drug abuse patient.[facility] CenterIn the event this information is protected by the Federal Confidentiality of Alcohol and Drug Abuse Patient Records regulations: The Federal rules restrict any use of the information to criminally investigate or prosecute any alcohol or drug abuse patient.[facility] CenterIn the event this information is protected by the Federal Confidentiality of Alcohol and Drug Abuse Patient Records regulations: The Federal rules restrict any use of the information to criminally investigate or prosecute any alcohol or drug abuse patient.[facility] Reason for Visit (unrecogniz ed section and [...] ESOPHAGUS SINGLE CONTRAST STUDY Edison Ardon MD [address] [place] [address] Phone: tel: [place] [address] Referral ID Status Reason Start Date Expiration Date V isits Requested Visits Authorized [id number] Closed Auto-Generate d Referral 11/24/2024 12/24/2025 1 1 Reason Comments Consult Reason Comments 1st pow lap appy IP Reason Comments 3rd pow lap appy IP Discuss colonoscopy Care Teams (unrecognized sec tion and content) Neon Tube Pumper Relationship Specialty Start Date End Date Cabrera Jones MD [address] [place] [phone] PCP - General Family Medicine 11/24/24 Junior Araya Jr., MD [address] [place] [address] Referring 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/19 Neon Tube Pumper Relationship Specialty Start Date End Date Cabrera Jones MD [address] [place] [id number] PCP - General Family Medicine 11/24/24 Junior Araya Jr., MD [address] [place] [address] Referring 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/19 Neon Tube Pumper Relationship Specialty Start Date End Date Cabrera Jones MD [address] [place] [phone] PCP - General Family Medicine 11/24/24 Junior Araya Jr., MD [address] [place] [address] Referring 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/19 Neon Tube Pumper Relationship Specialty Start Date End Date Cabrera Jones MD [address] [place] [phone] PCP - General Family Medicine 11/24/24 Junior Araya Jr., MD [address] [place] [address] Referring 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/19 Neon Tube Pumper Relationship Specialty Start Date End Date Cabrera Jones MD [address] [place] [address] PCP - General Family Medicine 11/24/24 Junior Araya Jr., MD [address] [place] [address] [place] [address] Referring 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/19 Neon Tube Pumper Relationship Specialty Start Date End Date Cabrera Jones MD [address] [facility] [place] [address] PCP - General Family Medicine 04/14/25 Neon Tube Pumper Relationship Specialty [place] [address] [place] [phone] PCP - General Family Medicine 04/14/25 Neon Tube Pumper Relationship Specialty [place] [address] [place] [phone] PCP - General Family Medicine 04/14/25 Team [...] BE BASED ON THE PRIMARY CLINICAL RECORDS. [facility] [employer] [facility]. provides no warranty or guarantee of the accuracy or completeness of information in this document.
== END 2025-07-23 10:29 | disposition home or self-care (01) ==
LOC: LAB 10:28
PROVIDERS: PCP Family Medicine; Visit Provider Family Medicine
DX: N20.0 Calculus of kidney (principal)
CPT/HCPCS: 82365